=== PATIENT | male | born 1935 | race Hispanic/Latino ===

== ENCOUNTER 2017-05-21 21:57 | Inpatient (IN) | payer MEDICAID ==
[~2017-05-21] VITALS: Ht 167.6 cm; Wt 85.9 kg
[~2017-05-21 21:57] MED LIST: AMLODIPINE BESY10 MG GT; ASCORBIC ACID500 MG GT; ASPIR 8181 MG GT; CEFTRIAXON1 GM/50 ML IV; CRANBERRY 4001 EAC1 PO; DIABETA5 MG GT; DOCUSATE S50 MG/5 ML GT; FLEET ENEMA133 ML RECTAL; FUROSEMIDE40 MG ORAL; GLUCOTROL10 MG GT; HEPARIN SO5000 UNIT2 SUBQ; HUMALOG100 UNIT/3 SUBQ; HUMALOG100 UNIT/4 SUBQ; HYDRALAZINE HCL50 MG GT; INVANZ1 G1 IM; LANTUS5 UNITS SUBQ; LASIX40 MG GT; MILK OF MA2400 MG/10 GT; MILK OF MA2400 MG/10 ORAL; MULTI-DELYN237 ML GT; MULTIVITAMINS1 EA13 GT; MULTIVITAMINS1 EAC8 ORAL; NEURONTIN100 MG GT; NEURONTIN300 MG GT; NORVASC10 MG GT; PRAVACHOL20 MG GT; PRAVACHOL20 MG ORAL; PRAVASTATIN SOD40 M1 GT; TYLENOL325 MG; TYLENOL325 MG ORAL; TYLENOL650 MG/20. GT; VANCOMYCIN1 GM IV; VITAMIN C500 MG/11 GT
[2017-05-21 22:37] VITALS: BP 131/61
[2017-05-21 22:42] LABS: BASOPHILS % (AUTO) 0.7 % (0.0-2.0); EOSINOPHILS % (AUTO) 2.3 % (0.0-3.0); HEMATOCRIT 42.4 % (42.0-52.0); HEMOGLOBIN 13.5 G/DL (14.2-18.0); LYMPHOCYTES % (AUTO) 11.3 % (20.0-45.0); MEAN CORPUSCULAR VOLUME 88 FL (80-99); MONOCYTES % (AUTO) 7.7 % (1.0-10.0); PLATELET COUNT 232 K/UL (150-450); RED BLOOD COUNT 4.84 M/UL (4.70-6.10); RED CELL DISTRIBUTION WIDTH 13.1 % (11.6-14.8); WHITE BLOOD COUNT 12.9 K/UL (4.8-10.8)
[2017-05-21 22:46] LABS: APPEARANCE,URINE CLEAR; BILIRUBIN, URINE NEGATIVE (NEGATIVE); GLUCOSE, URINE (UA) NEGATIVE (NEGATIVE); KETONES,URINE NEGATIVE (NEGATIVE); LEUKOCYTE ESTERASE ,URINE 1+ (NEGATIVE); NITRITE,URINE NEGATIVE (NEGATIVE); PH,URINE 5 (4.5-8.0); PROTEIN,URINE 4+ (NEGATIVE); UROBILINOGEN,URINE NORMAL MG/DL (0.0-1.0)
[2017-05-21 22:47] LABS: COLOR,URINE YELLOW
[2017-05-21 23:02] LABS: ANION GAP 5 mmol/L (5-15); BLOOD UREA NITROGEN 43 mg/dL (7-18); CARBON DIOXIDE 33 MMOL/L (21-32); CHLORIDE 97 MMOL/L (98-107); CREATININE 1.7 MG/DL (0.55-1.30); SODIUM 135 MMOL/L (136-145)
[2017-05-21 23:13] LABS: ALANINE AMINOTRANSFERASE 17 U/L (12-78); ALBUMIN 3.2 G/DL (3.4-5.0); ALBUMIN/GLOBULIN RATIO 0.7 (1.0-2.7); ALKALINE PHOSPHATASE 129 U/L (46-116); ASPARTATE AMINO TRANSFERASE 21 U/L (15-37); BILIRUBIN,TOTAL 0.5 MG/DL (0.2-1.0)
[2017-05-21] MEDS ORDERED: FISH OIL CAP1000 MG GT (23:21)
[2017-05-21] MEDS ORDERED: CALCIUM + VITA1 EAC1 PO (23:21)
--- NOTE | 2017-05-21 23:21 | Emergency Room Report ---
History of Present Illness General Chief Complaint: Fever Source: Medical Record, EMS Present Illness HPI 81-year-old male, bedbound, nonverbal, G-tube, diabetes, hypertension, presenting with fever. And EMS states that he had a fever today, however no other history is able to be obtained. Patient nonverbal. Currently afebrile rectally Allergies: Coded Allergies: NO KNOWN ALLERGIES (Unverified Allergy, Unknown, 10/07/15) NO KNOWN DRUG ALLERGIES (Unverified Allergy, Unknown, 05/29/14) Patient History Past Medical History: see triage record Past Surgical History: none Pertinent Family History: none Reviewed Nursing Documentation: PMH: Agreed, PSxH: Agreed Nursing Documentation-PMH Hx Hypertension: Yes Hx COPD: No - Pneumonia, Sepsis Hx Diabetes: Yes Hx Cancer: No Hx Gastrointestinal Problems: Yes - G tube Hx Cerebrovascular Accident: Yes Hx Dementia: Yes Hx Head Trauma: Yes Hx Aphasia: Yes Hx Weakness: Yes Hx Neurologic Surgery: No Hx Brain Shunt: No Review of Systems All Other Systems: limited Physical Exam Vital Signs Date Time Temp Pulse Resp B/P (MAP) Pulse Ox O2 Delivery O2 Flow Rate FiO2 05/21/17 21:52 98.6 81 16 152/65 94 Nasal Cannula 2.0 Sp02 EP Interpretation: reviewed, normal General Appearance: mild distress, lethargic, Chronically Ill Head: normocephalic, atraumatic Eyes: bilateral eye normal inspection, bilateral eye PERRL, bilateral eye EOMI ENT: other - +gurgling sounds with +phlegm Neck: normal inspection, full range of motion, supple Respiratory: respiratory distress, other - clear lungs however copious secretions upper resp Cardiovascular #1: normal inspection, regular rate, rhythm, no edema, normal capillary refill Cardiovascular #2: 2+ radial (R), 2+ radial (L) Gastrointestinal: other - peg tube. non tender soft abd Genitourinary: no CVA tenderness Musculoskeletal: other - normal passive rom, +edema Neurologic: other - nonverbal, moaning to pain, not ff commands Psychiatric: other Skin: normal inspection, normal color, no rash, warm/dry, well hydrated, normal turgor Medical Decision Making Diagnostic Impression: Primary Impression: Fever Additional Impressions: Respiratory distress HCAP (healthcare-associated pneumonia) ER Course 81-year-old male, coming from [facility], had fever [facility] DDX: Influenza, UTI, PNA, bacteremia, will also consider intra-abdominal pathology such as colitis / diverticulitis / acalculous cholecystitis if no other course found but at this time abdomen soft, NT, ND. Plan: Obtain labs including cbc, bmp, blood culture, blood gas, lactate, ua, ucx CXR EKG ER course: Patient has been monitored during ED stay, HD stable Has copious amounts of secretions, suctioned Disposition: Patient is to be admitted to telemetry D/W hospitalist Please note that this Emergency Department Report was dictated using [employer] brakeman technology software, occasionally this can lead to erroneous entry secondary to interpretation by the dictation equipment. EKG Diagnostic Results EP Interpretation: Yes Rate: normal Rhythm: NSR ST Segments: No acute changes ASA given to patient: No Rhythm Strip EP Interpretation: Yes Rate: 78 Rhythm: NSR, no PVCs, no ectopy Chest X-ray CXR: Ordered: Yes 1 view Indication: Shortness of breath EP interpretation: Yes Interpretation: Cardiomegaly, possible right-sided infiltrate Impression: Cardiomegaly possible right-sided infiltrate versus pulmonary vascular congestion Electronically signed by Santosh Booker MD Laboratory Tests Test 05/21/17 22:12 White Blood Count 12.9 K/UL (4.8-10.8) H Red Blood Count 4.84 M/UL (4.70-6.10) Hemoglobin 13.5 G/DL (14.2-18.0) L Hematocrit 42.4 % (42.0-52.0) Mean Corpuscular Volume 88 FL (80-99) Mean Corpuscular Hemoglobin 27.8 PG (27.0-31.0) Mean Corpuscular Hemoglobin Concent 31.7 G/DL (32.0-36.0) L Red Cell Distribution Width 13.1 % (11.6-14.8) Platelet Count 232 K/UL (150-450) Mean Platelet Volume 6.6 FL (6.5-10.1) Neutrophils (%) (Auto) 78.0 % (45.0-75.0) H Lymphocytes (%) (Auto) 11.3 % (20.0-45.0) L Monocytes (%) (Auto) 7.7 % (1.0-10.0) Eosinophils (%) (Auto) 2.3 % (0.0-3.0) Basophils (%) (Auto) 0.7 % (0.0-2.0) Urine Color Yellow Urine Appearance Clear Urine pH 5 (4.5-8.0) Urine Specific [place] 1.010 (1.005-1.035) Urine Protein 4+ (NEGATIVE) H Urine Glucose (UA) Negative (NEGATIVE) Urine Ketones Negative (NEGATIVE) Urine Occult Blood 2+ (NEGATIVE) H Urine Nitrite Negative (NEGATIVE) Urine Bilirubin Negative (NEGATIVE) Urine Urobilinogen Normal MG/DL (0.0-1.0) Urine Leukocyte Esterase 1+ (NEGATIVE) H Urine RBC 5-10 /HPF (0 - 0) H Urine WBC 2-4 /HPF (0 - 0) Urine Squamous Epithelial Cells None /LPF (NONE/OCC) Urine Bacteria Few /HPF (NONE) Sodium Level 135 MMOL/L (136-145) L Potassium Level 4.0 MMOL/L (3.5-5.1) Chloride Level 97 MMOL/L (98-107) L Carbon Dioxide Level 33 MMOL/L (21-32) H Anion Gap 5 mmol/L (5-15) Blood Urea Nitrogen 43 mg/dL (7-18) H Creatinine 1.7 MG/DL (0.55-1.30) H Estimate Glomerular Filtration Rate mL/min (>60) Glucose Level 241 MG/DL (74-106) H Lactic Acid Level 1.20 mmol/L (0.66-2.22) Calcium Level 9.0 MG/DL (8.5-10.1) Total Bilirubin 0.5 MG/DL (0.2-1.0) Aspartate Amino Transferase (AST) 21 U/L (15-37) Alanine Aminotransferase (ALT) 17 U/L (12-78) Alkaline Phosphatase 129 U/L (46-116) H Troponin I 0.108 ng/mL (0.000-0.056) Pro-B-Type Natriuretic Peptide 1175 pg/mL (0-125) H Total Protein 7.7 G/DL (6.4-8.2) Albumin 3.2 G/DL (3.4-5.0) L Globulin 4.5 g/dL Albumin/Globulin Ratio 0.7 (1.0-2.7) L Microbiology Date/Time Source Procedure Growth Status 05/21/17 22:12 Nasal Nares Influenza Types A,B Antigen (JETHRO) - Final Complete Last Vital Signs Date Time Temp Pulse Resp B/P (MAP) Pulse Ox O2 Delivery O2 Flow Rate FiO2 05/21/17 22:37 98.6 81 16 131/61 96 Nasal Cannula 2.0 Disposition: ADMITTED INPATIENT Condition: Serious Referrals: SOHEILA BEY (PCP) Santosh Booker M.D. May 21, 2017 23:21
[2017-05-21] MEDS ORDERED: Piperacillin/Tazobactam 3.375 GM in NS 55 ML IV ONE (23:30)
[2017-05-21] MEDS ORDERED: Vancomycin 1.5gm/D5W 250ml 250 ML IVPB ONE (23:30)
[2017-05-21] MEDS ORDERED: Zosyn 3.375gm inj ONE (23:40)
[2017-05-21 23:52] VITALS: BP 144/56
[2017-05-22 02:00] VITALS: BP 124/71
[2017-05-22 04:00] VITALS: BP 127/62
[2017-05-22] MEDS ORDERED: Promethazine/Codeine 5ml UD ORAL PRN (05:45)
[2017-05-22] MEDS ORDERED: Nitroglycerin Subl 0.4mg tab SL PRN (05:45)
[2017-05-22] MEDS ORDERED: Miralax 17gm pkt ORAL PRN (05:45)
[2017-05-22] MEDS ORDERED: Albuterol/Ipratropium 3ml neb HHN PRN (05:45)
[2017-05-22] MEDS ORDERED: Mylanta II UD 30ml ORAL PRN (05:45)
[2017-05-22] MEDS: HydrALAZINE 50mg tab GT SCH ×3 (06:33→21:00)
[2017-05-22 08:00] VITALS: BP 134/68
[2017-05-22] MEDS: Cefepime HCl 1 GM in NS 55 ML IV SCH ×2 (08:57→20:52)
[2017-05-22] MEDS: Heparin 5000 units/ml inj SUBQ SCH ×2 (08:59→20:52)
[2017-05-22] MEDS ORDERED: Cefepime HCl 1 GM in D5W 55 ML IV SCH (09:00)
--- NOTE | 2017-05-22 09:23 | Diagnostic Imaging Report ---
Indication: Shortness of breath Technique: One view of the chest Comparison: 12/07/2014 Findings: There is atelectasis at the left lung base. The lung the level spaces are otherwise clear heart is enlarged. The aorta is tortuous and calcified. Findings are unchanged Impression: Left basilar atelectasis. No acute process otherwise
--- NOTE | 2017-05-22 11:11 | Consultation ---
History of Present Illness General Date patient seen: May 22, 2017 Chief Complaint: Fever Reason for Consultation: sepsis Present Illness HPI 81-year-old male, bedbound, nonverbal, G-tube, diabetes, hypertension, group home resident brought in by paramedics CC of fever. Pt c/o back pain and stomach pain and sound congested. Allergies: Coded Allergies: NO KNOWN ALLERGIES (Unverified Allergy, Unknown, 10/07/15) NO KNOWN DRUG ALLERGIES (Unverified Allergy, Unknown, 05/29/14) Medication History Scheduled Acetaminophen (Tylenol), 325 MG Q6H, (Reported) Amlodipine Besylate (Norvasc), 10 MG GT DAILY, (Reported) Amlodipine Besylate (Norvasc), 10 MG GT DAILY, (Reported) Aspirin* (Aspir 81*), 81 MG GT DAILY, (Reported) Calcium/Cranberry Fruit (Cranberry 400 Mg Caplet), 1 EACH PO EVERY 12 HOURS, ( Reported) Docusate Sodium (Docusate Sodium), 100 MG GT BID, (Reported) Fish Oil (Fish Oil 1,000 mg Capsule), 1,000 MG GT DAILY, (Reported) Furosemide* (Lasix*), 40 MG ORAL DAILY Furosemide* (Lasix*), 40 MG GT DAILY, (Reported) Gabapentin (Neurontin), 300 MG GT THREE TIMES A DAY, (Reported) Gabapentin* (Neurontin*), 300 MG GT THREE TIMES A DAY, (Reported) Glipizide* (Glucotrol*), 10 MG GT BID, (Reported) Glyburide* (Diabeta*), 5 MG GT BIAC, (Reported) Hydralazine Hcl* (Hydralazine Hcl*), 50 MG GT CLIFFORD, (Reported) Insulin Glargine (Lantus), 32 UNITS SUBQ BEDTIME, (Reported) Multivitamin With Minerals (Multivitamins With Minerals*), 1 TAB ORAL DAILY, ( Reported) Pravastatin Sod (Pravastatin Sod), 40 MG GT BEDTIME, (Reported) Vit C/Ascorbate Ca/Ascorb Sod (Vitamin C 500 Mg/15 Ml Liquid), 500 MG GT BID, ( Reported) Scheduled PRN Magnesium Hydroxide* (Milk Of Magnesia*), 30 ML ORAL HS PRN for Constipation, ( Reported) Na Phos,M-B/Na Phos,Di-Ba* (Fleet Enema*), 133 ML RECTAL DAILY PRN for CON, ( Reported) Miscellaneous Medications Calcium Carbonate/Vitamin D3 (Calcium + Vitamin D Tablet), Unknown Dose PO, ( Reported) Insulin Lispro (Humalog), 0 SUBQ, (Reported) Insulin Lispro (Humalog), 0 SUBQ, (Reported) Insulin Lispro (Humalog), Unknown Dose SUBQ, (Reported) Patient History Healthcare decision maker Dasha Mojica Resuscitation status Full Code Advanced Directive on File Past Medical/Surgical History Past Medical/Surgical History: (1) Dementia (2) History of CVA (cerebrovascular accident) (3) Feeding by G-tube (4) PEG (percutaneous endoscopic gastrostomy) adjustment/replacement/removal Review of Systems Constitutional: Reports: sweats, weakness Physical Exam General Appearance: WD/WN Lines, tubes and drains: peripheral, gtube HEENT: normocephalic Neck: non-tender, normal alignment, supple Respiratory/Chest: chest wall non-tender, rhonchi - left, stridor Breasts: no masses Cardiovascular/Chest: normal peripheral pulses Abdomen: normal bowel sounds, non tender Genitourinary/Rectal: normal genital exam Extremities: normal range of motion Last 24 Hour Vital Signs Date Time Temp Pulse Resp B/P (MAP) Pulse Ox O2 Delivery O2 Flow Rate FiO2 05/22/17 08:55 85 131/68 05/22/17 08:00 99.7 85 20 134/68 92 Nasal Cannula 2.0 05/22/17 08:00 85 05/22/17 07:04 Nasal Cannula 4.0 36 05/22/17 07:04 96 Nasal Cannula 4.0 36 05/22/17 06:33 127/62 05/22/17 05:51 87 05/22/17 04:00 97.8 84 24 127/62 95 Nasal Cannula 2.0 05/22/17 03:00 94 Nasal Cannula 4.0 36 05/22/17 03:00 Nasal Cannula 4.0 36 05/22/17 02:00 97.9 80 24 124/71 98 Nasal Cannula 2.0 05/22/17 01:34 98.6 71 16 144/56 96 Nasal Cannula 2.0 05/21/17 23:52 98.6 71 16 144/56 96 Nasal Cannula 2.0 05/21/17 22:37 98.6 81 16 131/61 96 Nasal Cannula 2.0 05/21/17 21:52 98.6 81 16 152/65 94 Nasal Cannula 2.0 Intake and Output 05/21/17 05/22/17 19:00 07:00 Intake Total 55 ml Output Total 900 ml Balance -845 ml Intake Oral 0 ml IV Total 55 ml Output Urine Total 900 ml # Voids 1 # Bowel Movements 2 Laboratory Tests Test 05/21/17 22:12 White Blood Count 12.9 K/UL (4.8-10.8) H Red Blood Count 4.84 M/UL (4.70-6.10) Hemoglobin 13.5 G/DL (14.2-18.0) L Hematocrit 42.4 % (42.0-52.0) Mean Corpuscular Volume 88 FL (80-99) Mean Corpuscular Hemoglobin 27.8 PG (27.0-31.0) Mean Corpuscular Hemoglobin Concent 31.7 G/DL (32.0-36.0) L Red Cell Distribution Width 13.1 % (11.6-14.8) Platelet Count 232 K/UL (150-450) Mean Platelet Volume 6.6 FL (6.5-10.1) Neutrophils (%) (Auto) 78.0 % (45.0-75.0) H Lymphocytes (%) (Auto) 11.3 % (20.0-45.0) L Monocytes (%) (Auto) 7.7 % (1.0-10.0) Eosinophils (%) (Auto) 2.3 % (0.0-3.0) Basophils (%) (Auto) 0.7 % (0.0-2.0) Urine Color Yellow Urine Appearance Clear Urine pH 5 (4.5-8.0) Urine Specific [place] 1.010 (1.005-1.035) Urine Protein 4+ (NEGATIVE) H Urine Glucose (UA) Negative (NEGATIVE) Urine Ketones Negative (NEGATIVE) Urine Occult Blood 2+ (NEGATIVE) H Urine Nitrite Negative (NEGATIVE) Urine Bilirubin Negative (NEGATIVE) Urine Urobilinogen Normal MG/DL (0.0-1.0) Urine Leukocyte Esterase 1+ (NEGATIVE) H Urine RBC 5-10 /HPF (0 - 0) H Urine WBC 2-4 /HPF (0 - 0) Urine Squamous Epithelial Cells None /LPF (NONE/OCC) Urine Bacteria Few /HPF (NONE) Sodium Level 135 MMOL/L (136-145) L Potassium Level 4.0 MMOL/L (3.5-5.1) Chloride Level 97 MMOL/L (98-107) L Carbon Dioxide Level 33 MMOL/L (21-32) H Anion Gap 5 mmol/L (5-15) Blood Urea Nitrogen 43 mg/dL (7-18) H Creatinine 1.7 MG/DL (0.55-1.30) H Estimat Glomerular Filtration Rate mL/min (>60) Glucose Level 241 MG/DL (74-106) H Lactic Acid Level 1.20 mmol/L (0.66-2.22) Calcium Level 9.0 MG/DL (8.5-10.1) Total Bilirubin 0.5 MG/DL (0.2-1.0) Aspartate Amino Transf (AST/SGOT) 21 U/L (15-37) Alanine Aminotransferase (ALT/SGPT) 17 U/L (12-78) Alkaline Phosphatase 129 U/L (46-116) H Troponin I 0.108 ng/mL (0.000-0.056) Pro-B-Type Natriuretic Peptide 1175 pg/mL (0-125) H Total Protein 7.7 G/DL (6.4-8.2) Albumin 3.2 G/DL (3.4-5.0) L Globulin 4.5 g/dL Albumin/Globulin Ratio 0.7 (1.0-2.7) L Microbiology Date/Time Source Procedure Growth Status 05/21/17 22:12 Nasal Nares Influenza Types A,B Antigen (JETHRO) - Final Complete Height (Feet): 5 Height (Inches): 6.00 Weight (Pounds): 181 Medications Current Medications Medications (Trade) Dose Ordered Sig/Dimas Route PRN Reason Start Time Stop Time Status Last Admin Dose Admin Acetaminophen (Tylenol) 650 mg Q4H PRN ORAL fever 05/22/17 05:45 06/21/17 05:44 Al Hydroxide/Mg Hydroxide (Mylanta II) 30 ml Q6H PRN ORAL dyspepsia 05/22/17 05:45 06/21/17 05:44 Albuterol/ Ipratropium (Albuterol/ Ipratropium) 3 ml Q4H PRN HHN Shortness of Breath 05/22/17 05:45 05/27/17 05:44 Amlodipine Besylate (Norvasc) 10 mg DAILY GT 05/22/17 09:00 06/21/17 08:59 05/22/17 08:55 Cefepime HCl 1 gm/ Sodium Chloride 55 ml @ 110 mls/hr EVERY 12 HOURS IV 05/22/17 09:00 05/29/17 08:59 05/22/17 08:57 Gabapentin (Neurontin) 300 mg THREE TIMES A DAY GT 05/22/17 09:00 06/21/17 08:59 05/22/17 08:55 Heparin Sodium (Porcine) (Heparin 5000 units/ml) 5,000 units EVERY 12 HOURS SUBQ 05/22/17 09:00 06/21/17 08:59 05/22/17 08:59 Hydralazine HCl (Apresoline) 50 mg EVERY 8 HOURS GT 05/22/17 06:00 06/21/17 05:59 05/22/17 06:33 Nitroglycerin (Ntg) 0.4 mg Q5M PRN SL Prn Chest Pain 05/22/17 05:45 06/21/17 05:44 Ondansetron HCl (Zofran) 4 mg Q6H PRN IVP Nausea & Vomiting 05/22/17 05:45 06/21/17 05:44 Polyethylene Glycol (Miralax) 17 gm DAILYPRN PRN ORAL Constipation 05/22/17 05:45 06/21/17 05:44 Promethazine HCl/ Codeine (Phenergan with Codeine) 5 ml Q4H PRN ORAL For Cough 05/22/17 05:45 06/21/17 05:44 Sodium Chloride 1,000 ml @ 75 mls/hr [id number] IV 05/22/17 11:15 06/21/17 11:14 UNV Temazepam (Restoril) 15 mg HSPRN PRN ORAL Insomnia 05/22/17 05:45 05/29/17 05:44 Assessment/Plan Problem List: (1) Sepsis ICD Codes: A41.9 - Sepsis, unspecified organism SNOMED: 84442039 (2) Bronchitis ICD Codes: J40 - Bronchitis, not specified as acute or chronic SNOMED: 05743296 (3) ATN (acute tubular necrosis) ICD Codes: N17.0 - Acute kidney failure with tubular necrosis SNOMED: 03514787 (4) Dementia ICD Codes: F03.90 - Unspecified dementia without behavioral disturbance SNOMED: 24592288 (5) Feeding by G-tube ICD Codes: Z93.1 - Gastrostomy status SNOMED: 711076017, 184033166 (6) History of CVA (cerebrovascular accident) ICD Codes: Z86.73 - Personal history of transient ischemic attack (TIA), and cerebral infarction without residual deficits SNOMED: 731594547 Assessment/Plan bailey culture IV abx check sputum respiratory treatment check electroltyes gtube feeding dvt prophylaxis. MANISHA REES May 22, 2017 11:11
[2017-05-22 12:00] VITALS: BP 137/71
--- NOTE | 2017-05-22 14:07 | Cardiac Electrophysiology PN ---
Subjective Subjective Dictated [id number] Objective Last 24 Hour Vital Signs Date Time Temp Pulse Resp B/P (MAP) Pulse Ox O2 Delivery O2 Flow Rate FiO2 05/22/17 12:00 99.0 85 22 137/71 96 Nasal Cannula 2.0 05/22/17 12:00 93 05/22/17 08:55 85 131/68 05/22/17 08:00 99.7 85 20 134/68 92 Nasal Cannula 2.0 05/22/17 08:00 85 05/22/17 07:04 Nasal Cannula 4.0 36 05/22/17 07:04 96 Nasal Cannula 4.0 36 05/22/17 06:33 127/62 05/22/17 05:51 87 05/22/17 04:00 97.8 84 24 127/62 95 Nasal Cannula 2.0 05/22/17 03:00 94 Nasal Cannula 4.0 36 05/22/17 03:00 Nasal Cannula 4.0 36 05/22/17 02:00 97.9 80 24 124/71 98 Nasal Cannula 2.0 05/22/17 01:34 98.6 71 16 144/56 96 Nasal Cannula 2.0 05/21/17 23:52 98.6 71 16 144/56 96 Nasal Cannula 2.0 05/21/17 22:37 98.6 81 16 131/61 96 Nasal Cannula 2.0 05/21/17 21:52 98.6 81 16 152/65 94 Nasal Cannula 2.0 Intake and Output 05/21/17 05/22/17 19:00 07:00 Intake Total 55 ml Output Total 900 ml Balance -845 ml Intake Oral 0 ml IV Total 55 ml Output Urine Total 900 ml # Voids 1 # Bowel Movements 2 Laboratory Tests Test 05/21/17 22:12 White Blood Count 12.9 K/UL (4.8-10.8) H Red Blood Count 4.84 M/UL (4.70-6.10) Hemoglobin 13.5 G/DL (14.2-18.0) L Hematocrit 42.4 % (42.0-52.0) Mean Corpuscular Volume 88 FL (80-99) Mean Corpuscular Hemoglobin 27.8 PG (27.0-31.0) Mean Corpuscular Hemoglobin Concent 31.7 G/DL (32.0-36.0) L Red Cell Distribution Width 13.1 % (11.6-14.8) Platelet Count 232 K/UL (150-450) Mean Platelet Volume 6.6 FL (6.5-10.1) Neutrophils (%) (Auto) 78.0 % (45.0-75.0) H Lymphocytes (%) (Auto) 11.3 % (20.0-45.0) L Monocytes (%) (Auto) 7.7 % (1.0-10.0) Eosinophils (%) (Auto) 2.3 % (0.0-3.0) Basophils (%) (Auto) 0.7 % (0.0-2.0) Urine Color Yellow Urine Appearance Clear Urine pH 5 (4.5-8.0) Urine Specific [place] 1.010 (1.005-1.035) Urine Protein 4+ (NEGATIVE) H Urine Glucose (UA) Negative (NEGATIVE) Urine Ketones Negative (NEGATIVE) Urine Occult Blood 2+ (NEGATIVE) H Urine Nitrite Negative (NEGATIVE) Urine Bilirubin Negative (NEGATIVE) Urine Urobilinogen Normal MG/DL (0.0-1.0) Urine Leukocyte Esterase 1+ (NEGATIVE) H Urine RBC 5-10 /HPF (0 - 0) H Urine WBC 2-4 /HPF (0 - 0) Urine Squamous Epithelial Cells None /LPF (NONE/OCC) Urine Bacteria Few /HPF (NONE) Sodium Level 135 MMOL/L (136-145) L Potassium Level 4.0 MMOL/L (3.5-5.1) Chloride Level 97 MMOL/L (98-107) L Carbon Dioxide Level 33 MMOL/L (21-32) H Anion Gap 5 mmol/L (5-15) Blood Urea Nitrogen 43 mg/dL (7-18) H Creatinine 1.7 MG/DL (0.55-1.30) H Estimat Glomerular Filtration Rate mL/min (>60) Glucose Level 241 MG/DL (74-106) H Lactic Acid Level 1.20 mmol/L (0.66-2.22) Calcium Level 9.0 MG/DL (8.5-10.1) Total Bilirubin 0.5 MG/DL (0.2-1.0) Aspartate Amino Transf (AST/SGOT) 21 U/L (15-37) Alanine Aminotransferase (ALT/SGPT) 17 U/L (12-78) Alkaline Phosphatase 129 U/L (46-116) H Troponin I 0.108 ng/mL (0.000-0.056) Pro-B-Type Natriuretic Peptide 1175 pg/mL (0-125) H Total Protein 7.7 G/DL (6.4-8.2) Albumin 3.2 G/DL (3.4-5.0) L Globulin 4.5 g/dL Albumin/Globulin Ratio 0.7 (1.0-2.7) L Microbiology Date/Time Source Procedure Growth Status 05/21/17 22:12 Nasal Nares Influenza Types A,B Antigen (JETHRO) - Final Complete ANIRUDHOCTAVIA May 22, 2017 14:07
[2017-05-22 16:00] VITALS: BP 140/59
[2017-05-22] MEDS: NovoLOG Insulin Flexpen SUBQ SCH ×2 (16:30→20:53)
--- NOTE | 2017-05-22 16:45 | History and Physical Report ---
DATE OF ADMISSION: 05/21/2017 ATTENDING PHYSICIAN: Remberto Joe D.O. CONSULTANTS: 1. Wang Guzman M.D. 2. Dr. Bauer. 3. Gold Birmingham M.D. 4. Herbert Sanford M.D. CHIEF COMPLAINT: Confusion, fever, coughing, pneumonia, sepsis, and elevated troponin. BRIEF HISTORY: This is an 88-year-old male from [facility], presented with the above-mentioned diagnoses. The patient with fever, diagnosed with pneumonia and sepsis, and admitted to [facility] for further care. Currently calm, O2 NC, confused, sleeping in bed, not talking much. PAST MEDICAL HISTORY: Encephalopathy, hypertension, and CVA. PAST SURGICAL HISTORY: G-tube. MEDICATIONS: NovoLog, Norvasc, heparin, cefepime, Tylenol, hydralazine, nitroglycerin, and promethazine with codeine. ALLERGIES: Denies. SOCIAL HISTORY: No smoking. No alcohol. No intravenous drug abuse. FAMILY HISTORY: Noncontributory. REVIEW OF SYSTEMS: Unavailable. PHYSICAL EXAMINATION: GENERAL: Confused in bed, O2 NC, not talking, not responding to questions. VITAL SIGNS: Temperature is 99, pulse 85, respirations 22, and blood pressure 137/71. CARDIOVASCULAR: No murmurs. LUNGS: Poor air exchange. ABDOMEN: Bowel sounds distant. EXTREMITIES: No cyanosis, clubbing, or edema. NEURO: The patient moves all extremities. Slightly weak. LABORATORY DATA: Labs at this time show white count 12.9 and hemoglobin 13.5, otherwise, CBC is normal. BMP shows sodium 135, chloride 97, CO2 33, and BUN and creatinine are 43 and 1.7. Troponin 0.108. BNP is 1175. Urinalysis shows 1+ leukocyte esterase. ASSESSMENT: 1. Fever. 2. Pneumonia. 3. Urinary tract infection. 4. Sepsis. 5. Elevated troponin. 6. Renal insufficiency. 7. Hypertension. 8. Encephalopathy. 9. Cerebrovascular accident. PLAN: 1. Continue premeds. 2. OT, PT, and dietary evaluation. 3. CBC and BMP in morning. 4. O2 and pulmonary treatment as needed. 5. Antibiotics as ordered. 6. Blood pressure control. 7. Resume home medications. 8. Dr. Guzman, Dr. Bauer, Dr. Birmingham, and Dr. Sanford to consult. 9. We will continue to follow this patient medically. Remberto Joe D.O. DR: CHANDLER JOB#: [id number] CC:
--- NOTE | 2017-05-22 17:10 | Cardiology Report ---
APPROVED REPORT EXAM: Two-dimensional and M-mode echocardiogram with Doppler and color Doppler. INDICATION Congestive Heart Failure M-Mode DIMENSIONS IVSd1.2 (0.7-1.1cm)Left Atrium (MM)4.0 (1.6-4.0cm) LVDd5.1 (3.5-5.6cm)Aortic Root3.0 (2.0-3.7cm) PWd1.3 (0.7-1.1cm)Aortic Cusp Exc.1.5 (1.5-2.0cm) LVDs2.2 (2.5-4.0cm) PWs2.4 cm Normal left ventricular chamber size, systolic function and wall motion. Left ventricular ejection fraction estimated to be 55-60 %. Mild left ventricular hypertrophy. Anterior Echo-free space, may be due to pericardial fat or effusion. All other cardiac chamber sizes are within normal limits. Focal aortic valve sclerosis with adequate cusp excursion. Thickened mitral valve leaflets with normal excursion. Mild mitral annulus and aortic root calcification. Pulmonic valve not well visualized. Normal tricuspid valve structure. Subcostal views not obtainable due to GI tube. A color flow and spectral Doppler study was performed and revealed: No aortic insufficiency. No mitral regurgitation. Left ventricular diastolic function could not be determined due to arrhythmia. Trace tricuspid regurgitation. Tricuspid systolic velocities suggests peak right ventricular systolic pressure of 13 mmHg. No pulmonic regurgitation present.
--- NOTE | 2017-05-22 18:53 | Cardiology Report ---
APPROVED REPORT EKG Measurement Heart [id number] Sinus rhythm with 1st degree AV block Left axis deviation Low voltage QRS Cannot rule out Anterior infarct, age undetermined Abnormal ECG
[2017-05-22 20:00] VITALS: BP 133/64
--- NOTE | 2017-05-22 20:02 | Nephrology Progress Note ---
Assessment/Plan Problem List: (1) Leucocytosis (2) CHF (congestive heart failure) (3) ARF (acute renal failure) (4) Dehydration (5) Diabetes (6) HTN (hypertension) (7) Elevated troponin level (8) HLD (hyperlipidemia) (9) Hyponatremia (10) Dementia (11) History of CVA (cerebrovascular accident) Plan Consult dictated # [id number] Subjective Constitutional: Denies: no symptoms, chills, diaphoresis, fever, malaise, weakness, other HEENT: Denies: no symptoms, eye pain, blurred vision, tearing, double vision, ear pain, ear discharge, nose pain, nose congestion, throat pain, throat swelling, mouth pain, mouth swelling, other Genitourinary: Denies: no symptoms, burning, discharge, frequency, flank pain, hematuria, incontinence, pain, urgency, other Neurologic/Psychiatric: Reports: weakness Subjective In bed, in no apparent distress. Objective Objective Last 24 Hour Vital Signs Date Time Temp Pulse Resp B/P (MAP) Pulse Ox O2 Delivery O2 Flow Rate FiO2 05/22/17 16:00 99.2 94 19 140/59 94 Nasal Cannula 2.0 05/22/17 16:00 90 05/22/17 14:33 137/71 05/22/17 12:00 99.0 85 22 137/71 96 Nasal Cannula 2.0 05/22/17 12:00 93 05/22/17 08:55 85 131/68 05/22/17 08:00 99.7 85 20 134/68 92 Nasal Cannula 2.0 05/22/17 08:00 85 05/22/17 07:04 Nasal Cannula 4.0 36 05/22/17 07:04 96 Nasal Cannula 4.0 36 05/22/17 06:33 127/62 05/22/17 05:51 87 05/22/17 04:00 97.8 84 24 127/62 95 Nasal Cannula 2.0 05/22/17 03:00 94 Nasal Cannula 4.0 36 05/22/17 03:00 Nasal Cannula 4.0 36 05/22/17 02:00 97.9 80 24 124/71 98 Nasal Cannula 2.0 05/22/17 01:34 98.6 71 16 144/56 96 Nasal Cannula 2.0 05/21/17 23:52 98.6 71 16 144/56 96 Nasal Cannula 2.0 05/21/17 22:37 98.6 81 16 131/61 96 Nasal Cannula 2.0 05/21/17 21:52 98.6 81 16 152/65 94 Nasal Cannula 2.0 Intake and Output 05/21/17 05/22/17 19:00 07:00 Intake Total 55 ml Output Total 900 ml Balance -845 ml Intake Oral 0 ml IV Total 55 ml Output Urine Total 900 ml # Voids 1 # Bowel Movements 2 Laboratory Tests 05/21/17 22:12: White Blood Count 12.9H, Red Blood Count 4.84, Hemoglobin 13.5L, Hematocrit 42.4 , Mean Corpuscular Volume 88, Mean Corpuscular Hemoglobin 27.8, Mean Corpuscular Hemoglobin Concent 31.7L, Red Cell Distribution Width 13.1, Platelet Count 232, Mean Platelet Volume 6.6, Neutrophils (%) (Auto) 78.0H, Lymphocytes (%) (Auto) 11.3L, Monocytes (%) (Auto) 7.7, Eosinophils (%) (Auto) 2.3, Basophils (%) (Auto) 0.7, Urine Color Yellow, Urine Appearance Clear, Urine pH 5, Urine Specific [place] 1.010, Urine Protein 4+H, Urine Glucose (UA) Negative, Urine Ketones Negative, Urine Occult Blood 2+H, Urine Nitrite Negative , Urine Bilirubin Negative, Urine Urobilinogen Normal, Urine Leukocyte Esterase 1+H, Urine RBC 5-10H, Urine WBC 2-4, Urine Squamous Epithelial Cells None, Urine Bacteria Few, Sodium Level 135L, Potassium Level 4.0, Chloride Level 97L, Carbon Dioxide Level 33H, Anion Gap 5, Blood Urea Nitrogen 43H, Creatinine 1.7H , Estimat Glomerular Filtration Rate , Glucose Level 241H, Lactic Acid Level 1.20, Calcium Level 9.0, Total Bilirubin 0.5, Aspartate Amino Transf (AST/SGOT) 21, Alanine Aminotransferase (ALT/SGPT) 17, Alkaline Phosphatase 129H, Troponin I 0.108H, Pro-B-Type Natriuretic Peptide 1175H, Total Protein 7.7, Albumin 3.2L , Globulin 4.5, Albumin/Globulin Ratio 0.7L Height (Feet): 5 Height (Inches): 6.00 Weight (Pounds): 181 General Appearance: no apparent distress, confused EENT: normal ENT inspection Neck: non-tender Cardiovascular: normal rate Respiratory/Chest: decreased breath sounds Abdomen: soft, other Genitourinary/Rectal: other - kong Extremities: trace edema Neurologic: motor weakness, disoriented Lara Solorzano N.P. May 22, 2017 20:02
--- NOTE | 2017-05-22 23:45 | Consultation ---
DATE OF CONSULTATION: 05/22/2017 CARDIOLOGY CONSULTATION CONSULTING PHYSICIAN: Gold Birmingham M.D. REFERRING PHYSICIAN: Remberto Joe D.O. REASON FOR CONSULTATION: Elevated troponin. HISTORY OF PRESENT ILLNESS: The patient is a 81-year-old gentleman, who is nonverbal and bedbound with history of G-tube, hypertension, and diabetes, who was brought from half-way for fever. The patient was not able to provide any information. He is nonverbal. The blood pressure in the emergency room was 152/65 with a pulse of 81, respirations 16, and saturation 94%. His troponin, however, was elevated and the patient was admitted to [facility]. Cardiology consultation is obtained for further evaluation and management. PAST MEDICAL HISTORY: 1. Hypertension. 2. Diabetes. 3. Dysphagia, status post PEG placement. 4. Dementia. 5. Aphasia. FAMILY HISTORY: Noncontributory. SOCIAL HISTORY: He lives in half[place]way. Does not smoke or drink alcohol. REVIEW OF SYSTEMS: Cannot be obtained due to the patient's mental status. PHYSICAL EXAMINATION: VITAL SIGNS: Blood pressure is 132/71, pulse 85, respirations 22, and temperature is 99.7. HEAD AND NECK: Shows no JVD. LUNGS: Clear. CARDIOVASCULAR: Shows regular S1 and S2 with no gallop. ABDOMEN: Status post G-tube. EXTREMITIES: No pitting edema. LABORATORY AND DIAGNOSTIC DATA: His EKG showed sinus rhythm with first-degree AV block and left axis deviation. LABORATORY DATA: Labs show white count of 12.9, hemoglobin 13.5, and hematocrit 42.4. Sodium 135, potassium 4.0, BUN of 42, creatinine 1.7, and glucose of 241. Troponin 0.108. BNP is 1175. ASSESSMENT AND PLAN: 1. Elevated troponin. This is likely due to the patient's renal failure. The creatinine is 1.7. We will completely rule out myocardial infarction protocol. EKG does not show any acute ischemic changes. We will get an echocardiogram to rule for ejection fraction and wall motion abnormality. 2. Hypertension. Continue amlodipine 10 mg daily. 3. Elevated BNP, likely congestive heart failure. Again echocardiogram is pending. 4. Fever and sepsis. On IV antibiotics. 5. Dementia. 6. Dysphagia, status post percutaneous endoscopic gastrostomy tube placement. Thank you very much, Dr. Joe, for allowing me to participate in the care of this patient. Please do not hesitate to contact me for any questions regarding my evaluation. Gold Birmingham M.D. DR: LEÓN JOB#: [id number] CC:
[2017-05-23] VITALS: BP 136/84
[2017-05-23] MEDS ORDERED: Vancomycin 1 GM in D5W 275 ML IVPB SCH (00:30)
[2017-05-23 04:00] VITALS: BP 150/77
[2017-05-23] MEDS: HydrALAZINE 50mg tab GT SCH ×3 (05:50→22:18)
[2017-05-23] MEDS: NovoLOG Insulin Flexpen SUBQ SCH ×4 (05:52→22:18)
[2017-05-23 06:04] LABS: BASOPHILS % (AUTO) 0.7 % (0.0-2.0); HEMATOCRIT 39.9 % (42.0-52.0); HEMOGLOBIN 13.5 G/DL (14.2-18.0); LYMPHOCYTES % (AUTO) 12.7 % (20.0-45.0); MEAN CORPUSCULAR VOLUME 89 FL (80-99); MONOCYTES % (AUTO) 6.3 % (1.0-10.0); NEUTROPHILS % (AUTO) 78.3 % (45.0-75.0); PLATELET COUNT 222 K/UL (150-450); RED BLOOD COUNT 4.49 M/UL (4.70-6.10); RED CELL DISTRIBUTION WIDTH 13.7 % (11.6-14.8); WHITE BLOOD COUNT 9.8 K/UL (4.8-10.8)
[2017-05-23 06:25] LABS: ALBUMIN 2.9 G/DL (3.4-5.0); ANION GAP 5 mmol/L (5-15); BLOOD UREA NITROGEN 33 mg/dL (7-18); CALCIUM 9.4 MG/DL (8.5-10.1); CARBON DIOXIDE 34 MMOL/L (21-32); CHLORIDE 102 MMOL/L (98-107); CREATININE 1.6 MG/DL (0.55-1.30); PHOSPHORUS 3.5 MG/DL (2.5-4.9); POTASSIUM 3.8 MMOL/L (3.5-5.1); SODIUM 140 MMOL/L (136-145)
[2017-05-23 06:28] LABS: ANION GAP 6 mmol/L (5-15); BLOOD UREA NITROGEN 32 mg/dL (7-18); CARBON DIOXIDE 33 MMOL/L (21-32); CHLORIDE 102 MMOL/L (98-107); CREATININE 1.6 MG/DL (0.55-1.30); POTASSIUM 3.8 MMOL/L (3.5-5.1); SODIUM 141 MMOL/L (136-145)
[2017-05-23 08:00] VITALS: BP 134/72
[2017-05-23] MEDS: Heparin 5000 units/ml inj SUBQ SCH ×2 (08:23→22:19)
[2017-05-23] MEDS: Cefepime HCl 1 GM in NS 55 ML IV SCH (08:24)
--- NOTE | 2017-05-23 08:37 | Infectious Diseases Prog Note ---
Assessment/Plan Assessment/Plan A; Sepsis improving Bronchitis, atelectasis Acute renal failure DM Elevated troponin Dementia P; Continue Cefepime will f/u cultures Subjective ROS Limited/Unobtainable: Yes Musculoskeletal: Reports: no symptoms Allergies: Coded Allergies: NO KNOWN ALLERGIES (Unverified Allergy, Unknown, 10/07/15) NO KNOWN DRUG ALLERGIES (Unverified Allergy, Unknown, 05/29/14) Objective Vital Signs Last 24 Hour Vital Signs Date Time Temp Pulse Resp B/P (MAP) Pulse Ox O2 Delivery O2 Flow Rate FiO2 05/23/17 08:24 97 134/72 05/23/17 05:50 150/77 05/23/17 04:00 98.4 95 20 150/77 96 Nasal Cannula 2.0 05/23/17 04:00 97 05/23/17 00:00 98.0 108 24 136/84 99 Nasal Cannula 2.0 05/23/17 00:00 94 05/22/17 23:42 96 18 99 Nasal Cannula 3.0 36 05/22/17 23:42 93 22 96 Nasal Cannula 3.0 36 05/22/17 21:00 133/64 05/22/17 20:30 Nasal Cannula 4.0 36 05/22/17 20:30 95 Nasal Cannula 4.0 36 05/22/17 20:00 89 05/22/17 20:00 99.0 90 24 133/64 95 Nasal Cannula 2.0 05/22/17 16:00 99.2 94 19 140/59 94 Nasal Cannula 2.0 05/22/17 16:00 90 05/22/17 14:33 137/71 05/22/17 12:00 99.0 85 22 137/71 96 Nasal Cannula 2.0 05/22/17 12:00 93 05/22/17 08:55 85 131/68 Height (Feet): 5 Height (Inches): 6.00 Weight (Pounds): 181 General Appearance: no acute distress HEENT: mucous membranes moist Respiratory/Chest: lungs clear Cardiovascular: normal rate Abdomen: soft, non tender, other - GT feeding Extremities: no edema Neurologic/Psychiatric: alert, responsive, disoriented, other - obeys simple command Microbiology Date/Time Source Procedure Growth Status 05/21/17 22:02 Blood Blood Culture - Preliminary NO GROWTH AFTER 24 HOURS Resulted 05/21/17 22:02 Blood Blood Culture - Preliminary NO GROWTH AFTER 24 HOURS Resulted 05/21/17 22:12 Nasal Nares Influenza Types A,B Antigen (JETHRO) - Final Complete Laboratory Tests Test 05/23/17 05:40 White Blood Count 9.8 K/UL (4.8-10.8) Red Blood Count 4.49 M/UL (4.70-6.10) L Hemoglobin 13.5 G/DL (14.2-18.0) L Hematocrit 39.9 % (42.0-52.0) L Mean Corpuscular Volume 89 FL (80-99) Mean Corpuscular Hemoglobin 30.0 PG (27.0-31.0) Mean Corpuscular Hemoglobin Concent 33.8 G/DL (32.0-36.0) Red Cell Distribution Width 13.7 % (11.6-14.8) Platelet Count 222 K/UL (150-450) Mean Platelet Volume 6.9 FL (6.5-10.1) Neutrophils (%) (Auto) 78.3 % (45.0-75.0) H Lymphocytes (%) (Auto) 12.7 % (20.0-45.0) L Monocytes (%) (Auto) 6.3 % (1.0-10.0) Eosinophils (%) (Auto) 2.0 % (0.0-3.0) Basophils (%) (Auto) 0.7 % (0.0-2.0) Sodium Level 141 MMOL/L (136-145) Potassium Level 3.8 MMOL/L (3.5-5.1) Chloride Level 102 MMOL/L (98-107) Carbon Dioxide Level 33 MMOL/L (21-32) H Anion Gap 6 mmol/L (5-15) Blood Urea Nitrogen 32 mg/dL (7-18) H Creatinine 1.6 MG/DL (0.55-1.30) H Estimat Glomerular Filtration Rate mL/min (>60) Glucose Level 113 MG/DL (74-106) H Calcium Level 9.0 MG/DL (8.5-10.1) Phosphorus Level 3.5 MG/DL (2.5-4.9) Troponin I 0.059 ng/mL (0.000-0.056) Pro-B-Type Natriuretic Peptide 776 pg/mL (0-125) H Albumin 2.9 G/DL (3.4-5.0) L Free Thyroxine 1.22 NG/DL (0.76-1.46) Current Medications Medications (Trade) Dose Ordered Sig/Dimas Route PRN Reason Start Time Stop Time Status Last Admin Dose Admin Acetaminophen (Tylenol) 650 mg Q4H PRN ORAL fever 05/22/17 05:45 06/21/17 05:44 Al Hydroxide/Mg Hydroxide (Mylanta II) 30 ml Q6H PRN ORAL dyspepsia 05/22/17 05:45 06/21/17 05:44 Albuterol/ Ipratropium (Albuterol/ Ipratropium) 3 ml Q4H PRN HHN Shortness of Breath 05/22/17 05:45 05/27/17 05:44 05/22/17 23:41 Amlodipine Besylate (Norvasc) 10 mg DAILY GT 05/22/17 09:00 06/21/17 08:59 05/23/17 08:24 Cefepime HCl 1 gm/ Sodium Chloride 55 ml @ 110 mls/hr EVERY 12 HOURS IV 05/22/17 09:00 05/29/17 08:59 05/23/17 08:24 Gabapentin (Neurontin) 300 mg THREE TIMES A DAY GT 05/22/17 09:00 06/21/17 08:59 05/23/17 08:24 Heparin Sodium (Porcine) (Heparin 5000 units/ml) 5,000 units EVERY 12 HOURS SUBQ 05/22/17 09:00 06/21/17 08:59 05/23/17 08:23 Hydralazine HCl (Apresoline) 50 mg EVERY 8 HOURS GT 05/22/17 06:00 06/21/17 05:59 05/23/17 05:50 Insulin Aspart (NovoLOG) BEFORE MEALS AND HS SUBQ 05/22/17 16:30 06/21/17 16:29 05/23/17 05:52 Nitroglycerin (Ntg) 0.4 mg Q5M PRN SL Prn Chest Pain 05/22/17 05:45 06/21/17 05:44 Ondansetron HCl (Zofran) 4 mg Q6H PRN IVP Nausea & Vomiting 05/22/17 05:45 06/21/17 05:44 Polyethylene Glycol (Miralax) 17 gm DAILYPRN PRN ORAL Constipation 05/22/17 05:45 06/21/17 05:44 Promethazine HCl/ Codeine (Phenergan with Codeine) 5 ml Q4H PRN ORAL For Cough 05/22/17 05:45 06/21/17 05:44 Sodium Chloride 1,000 ml @ 75 mls/hr [id number] IV 05/22/17 12:30 06/21/17 12:29 05/23/17 01:46 Temazepam (Restoril) 15 mg HSPRN PRN ORAL Insomnia 05/22/17 05:45 05/29/17 05:44 MALCOLM LIN May 23, 2017 08:37
--- NOTE | 2017-05-23 10:50 | Cardiac Electrophysiology PN ---
Assessment/Plan Assessment/Plan 1. Elevated troponins. Levels flat and low.No chest pain. This is likely due to the patient's renal failure. The creatinine is 1.7. EKG does not show any acute ischemic changes. ECho final pending 2. Hypertension. Continue amlodipine 10 mg daily and hydralazine 50 q 8 hr. 3. Elevated BNP, likely congestive heart failure. Again echocardiogram is pending. 4. Fever and sepsis. On IV antibiotics. 5. Dementia. 6. Dysphagia, status post percutaneous endoscopic gastrostomy tube placement. DW Daughter at bedside Subjective Subjective Feeling better. Daughter at bedside.On abx. No arrhythmias on tele. EF 55%. Objective Last 24 Hour Vital Signs Date Time Temp Pulse Resp B/P (MAP) Pulse Ox O2 Delivery O2 Flow Rate FiO2 05/23/17 08:24 97 134/72 05/23/17 08:00 96 05/23/17 08:00 98.8 97 18 134/72 97 Nasal Cannula 2.0 05/23/17 07:15 Nasal Cannula 4.0 36 05/23/17 07:15 96 Nasal Cannula 4.0 36 05/23/17 05:50 150/77 05/23/17 04:00 98.4 95 20 150/77 96 Nasal Cannula 2.0 05/23/17 04:00 97 05/23/17 00:00 98.0 108 24 136/84 99 Nasal Cannula 2.0 05/23/17 00:00 94 05/22/17 23:42 96 18 99 Nasal Cannula 3.0 36 05/22/17 23:42 93 22 96 Nasal Cannula 3.0 36 05/22/17 21:00 133/64 05/22/17 20:30 Nasal Cannula 4.0 36 05/22/17 20:30 95 Nasal Cannula 4.0 36 05/22/17 20:00 89 05/22/17 20:00 99.0 90 24 133/64 95 Nasal Cannula 2.0 05/22/17 16:00 99.2 94 19 140/59 94 Nasal Cannula 2.0 05/22/17 16:00 90 05/22/17 14:33 137/71 05/22/17 12:00 99.0 85 22 137/71 96 Nasal Cannula 2.0 05/22/17 12:00 93 Intake and Output 05/22/17 05/23/17 19:00 07:00 Intake Total 855 ml 1448.75 ml Output Total 3 ml 500 ml Balance 852 ml 948.75 ml Free Water 100 ml IV Total 505 ml 1028.75 ml Tube Feeding 220 ml 360 ml Other 30 ml 60 ml Output Urine Total 3 ml 500 ml # Voids 1 # Bowel Movements 4 1 Laboratory Tests Test 05/23/17 05:40 White Blood Count 9.8 K/UL (4.8-10.8) Red Blood Count 4.49 M/UL (4.70-6.10) L Hemoglobin 13.5 G/DL (14.2-18.0) L Hematocrit 39.9 % (42.0-52.0) L Mean Corpuscular Volume 89 FL (80-99) Mean Corpuscular Hemoglobin 30.0 PG (27.0-31.0) Mean Corpuscular Hemoglobin Concent 33.8 G/DL (32.0-36.0) Red Cell Distribution Width 13.7 % (11.6-14.8) Platelet Count 222 K/UL (150-450) Mean Platelet Volume 6.9 FL (6.5-10.1) Neutrophils (%) (Auto) 78.3 % (45.0-75.0) H Lymphocytes (%) (Auto) 12.7 % (20.0-45.0) L Monocytes (%) (Auto) 6.3 % (1.0-10.0) Eosinophils (%) (Auto) 2.0 % (0.0-3.0) Basophils (%) (Auto) 0.7 % (0.0-2.0) Sodium Level 141 MMOL/L (136-145) Potassium Level 3.8 MMOL/L (3.5-5.1) Chloride Level 102 MMOL/L (98-107) Carbon Dioxide Level 33 MMOL/L (21-32) H Anion Gap 6 mmol/L (5-15) Blood Urea Nitrogen 32 mg/dL (7-18) H Creatinine 1.6 MG/DL (0.55-1.30) H Estimat Glomerular Filtration Rate mL/min (>60) Glucose Level 113 MG/DL (74-106) H Calcium Level 9.0 MG/DL (8.5-10.1) Phosphorus Level 3.5 MG/DL (2.5-4.9) Troponin I 0.059 ng/mL (0.000-0.056) Pro-B-Type Natriuretic Peptide 776 pg/mL (0-125) H Albumin 2.9 G/DL (3.4-5.0) L Free Thyroxine 1.22 NG/DL (0.76-1.46) Microbiology Date/Time Source Procedure Growth Status 05/21/17 22:02 Blood Blood Culture - Preliminary NO GROWTH AFTER 24 HOURS Resulted 05/21/17 22:02 Blood Blood Culture - Preliminary NO GROWTH AFTER 24 HOURS Resulted 05/21/17 22:12 Nasal Nares Influenza Types A,B Antigen (JETHRO) - Final Complete Objective HEAD AND NECK: Shows no JVD. LUNGS: Clear. CARDIOVASCULAR: Shows regular S1 and S2 with no gallop. ABDOMEN: Status post G-tube. EXTREMITIES: No pitting edema. OCTAVIA OLEARY May 23, 2017 10:50
--- NOTE | 2017-05-23 11:59 | Pulmonology Progress Note ---
Assessment/Plan Problems: (1) Sepsis (2) Bronchitis (3) ATN (acute tubular necrosis) (4) Dementia (5) Feeding by G-tube (6) History of CVA (cerebrovascular accident) Assessment/Plan iv abx check cultures, so far everything is negative check electrolytes tolerating feeding dvt prophylaxis titrate fio2 to pulse ox of 925 troponin unchanged. transfer to med/surg if ok with Content Director. all meds and notes reviewed. Subjective ROS Limited/Unobtainable: No Constitutional: Reports: no symptoms HEENT: Repors: no symptoms Allergies: Coded Allergies: NO KNOWN ALLERGIES (Unverified Allergy, Unknown, 10/07/15) NO KNOWN DRUG ALLERGIES (Unverified Allergy, Unknown, 05/29/14) Objective Last 24 Hour Vital Signs Date Time Temp Pulse Resp B/P (MAP) Pulse Ox O2 Delivery O2 Flow Rate FiO2 05/23/17 08:24 97 134/72 05/23/17 08:00 96 05/23/17 08:00 98.8 97 18 134/72 97 Nasal Cannula 2.0 05/23/17 07:15 Nasal Cannula 4.0 36 05/23/17 07:15 96 Nasal Cannula 4.0 36 05/23/17 05:50 150/77 05/23/17 04:00 98.4 95 20 150/77 96 Nasal Cannula 2.0 05/23/17 04:00 97 05/23/17 00:00 98.0 108 24 136/84 99 Nasal Cannula 2.0 05/23/17 00:00 94 05/22/17 23:42 96 18 99 Nasal Cannula 3.0 36 05/22/17 23:42 93 22 96 Nasal Cannula 3.0 36 05/22/17 21:00 133/64 05/22/17 20:30 Nasal Cannula 4.0 36 05/22/17 20:30 95 Nasal Cannula 4.0 36 05/22/17 20:00 89 05/22/17 20:00 99.0 90 24 133/64 95 Nasal Cannula 2.0 05/22/17 16:00 99.2 94 19 140/59 94 Nasal Cannula 2.0 05/22/17 16:00 90 05/22/17 14:33 137/71 05/22/17 12:00 99.0 85 22 137/71 96 Nasal Cannula 2.0 05/22/17 12:00 93 Intake and Output 05/22/17 05/23/17 19:00 07:00 Intake Total 855 ml 1448.75 ml Output Total 3 ml 500 ml Balance 852 ml 948.75 ml Free Water 100 ml IV Total 505 ml 1028.75 ml Tube Feeding 220 ml 360 ml Other 30 ml 60 ml Output Urine Total 3 ml 500 ml # Voids 1 # Bowel Movements 4 1 Objective General Appearance: WD/WN Lines, tubes and drains: peripheral, gtube HEENT: normocephalic Neck: non-tender, normal alignment, supple Respiratory/Chest: chest wall non-tender, rhonchi - left, stridor Breasts: no masses Cardiovascular/Chest: normal peripheral pulses Abdomen: normal bowel sounds, non tender, Gtube Genitourinary/Rectal: normal genital exam Extremities: normal range of Microbiology Date/Time Source Procedure Growth Status 05/21/17 22:02 Blood Blood Culture - Preliminary NO GROWTH AFTER 24 HOURS Resulted 05/21/17 22:02 Blood Blood Culture - Preliminary NO GROWTH AFTER 24 HOURS Resulted 05/21/17 22:12 Nasal Nares Influenza Types A,B Antigen (JETHRO) - Final Complete Laboratory Tests 05/23/17 05:40: White Blood Count 9.8, Red Blood Count 4.49L, Hemoglobin 13.5L, Hematocrit 39.9L , Mean Corpuscular Volume 89, Mean Corpuscular Hemoglobin 30.0, Mean Corpuscular Hemoglobin Concent 33.8, Red Cell Distribution Width 13.7, Platelet Count 222, Mean Platelet Volume 6.9, Neutrophils (%) (Auto) 78.3H, Lymphocytes ( %) (Auto) 12.7L, Monocytes (%) (Auto) 6.3, Eosinophils (%) (Auto) 2.0, Basophils (%) (Auto) 0.7, Sodium Level 141, Potassium Level 3.8, Chloride Level 102, Carbon Dioxide Level 33H, Anion Gap 6, Blood Urea Nitrogen 32H, Creatinine 1.6H, Estimat Glomerular Filtration Rate , Glucose Level 113H, Calcium Level 9.0 , Phosphorus Level 3.5, Troponin I 0.059H, Pro-B-Type Natriuretic Peptide 776H, Albumin 2.9L, Free Thyroxine 1.22 Current Medications Medications (Trade) Dose Ordered Sig/Dimas Route PRN Reason Start Time Stop Time Status Last Admin Dose Admin Acetaminophen (Tylenol) 650 mg Q4H PRN ORAL fever 05/22/17 05:45 06/21/17 05:44 Al Hydroxide/Mg Hydroxide (Mylanta II) 30 ml Q6H PRN ORAL dyspepsia 05/22/17 05:45 06/21/17 05:44 Albuterol/ Ipratropium (Albuterol/ Ipratropium) 3 ml Q4H PRN HHN Shortness of Breath 05/22/17 05:45 05/27/17 05:44 05/22/17 23:41 Amlodipine Besylate (Norvasc) 10 mg DAILY GT 05/22/17 09:00 06/21/17 08:59 05/23/17 08:24 Cefepime HCl 1 gm/ Sodium Chloride 55 ml @ 110 mls/hr EVERY 12 HOURS IV 05/22/17 09:00 05/29/17 08:59 05/23/17 08:24 Gabapentin (Neurontin) 300 mg THREE TIMES A DAY GT 05/22/17 09:00 06/21/17 08:59 05/23/17 08:24 Heparin Sodium (Porcine) (Heparin 5000 units/ml) 5,000 units EVERY 12 HOURS SUBQ 05/22/17 09:00 06/21/17 08:59 05/23/17 08:23 Hydralazine HCl (Apresoline) 50 mg EVERY 8 HOURS GT 05/22/17 06:00 06/21/17 05:59 05/23/17 05:50 Insulin Aspart (NovoLOG) BEFORE MEALS AND HS SUBQ 05/22/17 16:30 06/21/17 16:29 05/23/17 05:52 Nitroglycerin (Ntg) 0.4 mg Q5M PRN SL Prn Chest Pain 05/22/17 05:45 06/21/17 05:44 Ondansetron HCl (Zofran) 4 mg Q6H PRN IVP Nausea & Vomiting 05/22/17 05:45 06/21/17 05:44 Polyethylene Glycol (Miralax) 17 gm DAILYPRN PRN ORAL Constipation 05/22/17 05:45 06/21/17 05:44 Promethazine HCl/ Codeine (Phenergan with Codeine) 5 ml Q4H PRN ORAL For Cough 05/22/17 05:45 06/21/17 05:44 Sodium Chloride 1,000 ml @ 75 mls/hr [id number] IV 05/22/17 12:30 06/21/17 12:29 05/23/17 01:46 Temazepam (Restoril) 15 mg HSPRN PRN ORAL Insomnia 05/22/17 05:45 05/29/17 05:44 MANISHA REES May 23, 2017 11:59
[2017-05-23 12:00] VITALS: BP 139/65
--- NOTE | 2017-05-23 13:45 | General Progress Note ---
Assessment/Plan Problem List: (1) UTI (urinary tract infection) ICD Codes: N39.0 - Urinary tract infection, site not specified SNOMED: 02628634 (2) Fever ICD Codes: R50.9 - Fever, unspecified SNOMED: 977111019 (3) PNA (pneumonia) ICD Codes: J18.9 - Pneumonia, unspecified organism SNOMED: 792588810 (4) Sepsis ICD Codes: A41.9 - Sepsis SNOMED: 84189895 (5) HTN (hypertension) ICD Codes: I10 - Essential (primary) hypertension SNOMED: 76762008 (6) History of CVA (cerebrovascular accident) ICD Codes: Z86.73 - Personal history of transient ischemic attack (TIA), and cerebral infarction without residual deficits SNOMED: 151839541 (7) Elevated troponin level ICD Codes: R74.8 - Abnormal levels of other serum enzymes SNOMED: 446955172, 362728399, 246256544 Status: unchanged Assessment/Plan o2 pul tx abx ot pt diet cardio eval cbc bmp am Subjective Constitutional: Reports: weakness Allergies: Coded Allergies: NO KNOWN ALLERGIES (Unverified Allergy, Unknown, 10/07/15) NO KNOWN DRUG ALLERGIES (Unverified Allergy, Unknown, 05/29/14) All Systems: reviewed and negative except above Subjective o2nc sleepy Objective Last 24 Hour Vital Signs Date Time Temp Pulse Resp B/P (MAP) Pulse Ox O2 Delivery O2 Flow Rate FiO2 05/23/17 13:22 139/65 05/23/17 12:00 93 05/23/17 12:00 98.2 93 18 139/65 93 Nasal Cannula 2.0 05/23/17 08:24 97 134/72 05/23/17 08:00 96 05/23/17 08:00 98.8 97 18 134/72 97 Nasal Cannula 2.0 05/23/17 07:15 Nasal Cannula 4.0 36 05/23/17 07:15 96 Nasal Cannula 4.0 36 05/23/17 05:50 150/77 05/23/17 04:00 98.4 95 20 150/77 96 Nasal Cannula 2.0 05/23/17 04:00 97 05/23/17 00:00 98.0 108 24 136/84 99 Nasal Cannula 2.0 05/23/17 00:00 94 05/22/17 23:42 96 18 99 Nasal Cannula 3.0 36 05/22/17 23:42 93 22 96 Nasal Cannula 3.0 36 05/22/17 21:00 133/64 05/22/17 20:30 Nasal Cannula 4.0 36 05/22/17 20:30 95 Nasal Cannula 4.0 36 05/22/17 20:00 89 05/22/17 20:00 99.0 90 24 133/64 95 Nasal Cannula 2.0 05/22/17 16:00 99.2 94 19 140/59 94 Nasal Cannula 2.0 05/22/17 16:00 90 05/22/17 14:33 137/71 Intake and Output 05/22/17 05/23/17 19:00 07:00 Intake Total 855 ml 1448.75 ml Output Total 3 ml 500 ml Balance 852 ml 948.75 ml Free Water 100 ml IV Total 505 ml 1028.75 ml Tube Feeding 220 ml 360 ml Other 30 ml 60 ml Output Urine Total 3 ml 500 ml # Voids 1 # Bowel Movements 4 1 Laboratory Tests 05/23/17 05:40: White Blood Count 9.8, Red Blood Count 4.49L, Hemoglobin 13.5L, Hematocrit 39.9L , Mean Corpuscular Volume 89, Mean Corpuscular Hemoglobin 30.0, Mean Corpuscular Hemoglobin Concent 33.8, Red Cell Distribution Width 13.7, Platelet Count 222, Mean Platelet Volume 6.9, Neutrophils (%) (Auto) 78.3H, Lymphocytes ( %) (Auto) 12.7L, Monocytes (%) (Auto) 6.3, Eosinophils (%) (Auto) 2.0, Basophils (%) (Auto) 0.7, Sodium Level 141, Potassium Level 3.8, Chloride Level 102, Carbon Dioxide Level 33H, Anion Gap 6, Blood Urea Nitrogen 32H, Creatinine 1.6H, Estimat Glomerular Filtration Rate , Glucose Level 113H, Calcium Level 9.0 , Phosphorus Level 3.5, Troponin I 0.059H, Pro-B-Type Natriuretic Peptide 776H, Albumin 2.9L, Free Thyroxine 1.22 Height (Feet): 5 Height (Inches): 6.00 Weight (Pounds): 181 General Appearance: lethargic, confused EENT: normal ENT inspection Neck: normal alignment Cardiovascular: normal peripheral pulses, normal rate, regular rhythm Respiratory/Chest: chest wall non-tender, lungs clear, normal breath sounds Abdomen: normal bowel sounds, non tender, soft Extremities: normal inspection Edema: no edema noted Arm (L), no edema noted Arm (R), no edema noted Leg (L), no edema noted Leg (R), no edema noted Pedal (L), no edema noted Pedal (R), no edema noted Generalized Neurologic: motor weakness Skin: normal pigmentation, warm/dry SOHEILA BEY May 23, 2017 13:45
[2017-05-23 16:00] VITALS: BP 127/71
[2017-05-23] MEDS ORDERED: Nitroglycerin Subl 0.4mg tab SL PRN (17:15)
[2017-05-23] MEDS ORDERED: Albuterol/Ipratropium 3ml neb HHN PRN (17:45)
[2017-05-23] MEDS ORDERED: Promethazine/Codeine 5ml UD ORAL PRN (17:45)
[2017-05-23] MEDS ORDERED: Mylanta II UD 30ml ORAL PRN (17:45)
[2017-05-23] MEDS ORDERED: Miralax 17gm pkt ORAL PRN (18:00)
[2017-05-23 20:00] VITALS: BP 145/70
[2017-05-23] MEDS ORDERED: Cefepime HCl 2 GM in NS 110 ML IV SCH ×4 (22:00)
[2017-05-23] MEDS: Gabapentin 300 MG/6 ML Soln GT SCH (22:18)
[2017-05-24] VITALS: BP 132/60
[2017-05-24 04:00] VITALS: BP 146/73
[2017-05-24] MEDS: Gabapentin 300 MG/6 ML Soln GT SCH ×3 (05:55→21:23)
[2017-05-24] MEDS: HydrALAZINE 50mg tab GT SCH ×3 (05:55→21:23)
[2017-05-24] MEDS: NovoLOG Insulin Flexpen SUBQ SCH ×4 (06:30→21:24)
--- NOTE | 2017-05-24 06:47 | General Progress Note ---
Assessment/Plan Problem List: (1) Malfunction of gastrostomy tube ICD Codes: K94.23 - Gastrostomy malfunction SNOMED: 605555824 (2) Dementia ICD Codes: F03.90 - Unspecified dementia without behavioral disturbance SNOMED: 23199742 (3) HLD (hyperlipidemia) ICD Codes: E78.5 - Hyperlipidemia, unspecified SNOMED: 14255884 (4) Diabetes ICD Codes: E11.9 - Type 2 diabetes mellitus without complications SNOMED: 25593052 Assessment/Plan continue NISS no need for basal insulin change IVF to D5NS Subjective ROS Limited/Unobtainable: Yes Allergies: Coded Allergies: NO KNOWN ALLERGIES (Unverified Allergy, Unknown, 10/07/15) NO KNOWN DRUG ALLERGIES (Unverified Allergy, Unknown, 05/29/14) Subjective GT malfunctioning non verbal Objective Last 24 Hour Vital Signs Date Time Temp Pulse Resp B/P (MAP) Pulse Ox O2 Delivery O2 Flow Rate FiO2 05/24/17 04:00 97.7 85 21 146/73 95 Nasal Cannula 2.0 05/24/17 00:00 97.9 86 20 132/60 98 Nasal Cannula 05/23/17 22:18 145/70 05/23/17 20:23 94 Nasal Cannula 4.0 36 05/23/17 20:23 Nasal Cannula 4.0 36 05/23/17 20:00 97.3 86 20 145/70 97 Nasal Cannula 05/23/17 16:00 88 05/23/17 16:00 99.3 94 18 127/71 94 Nasal Cannula 2.0 05/23/17 13:22 139/65 05/23/17 12:00 93 05/23/17 12:00 98.2 93 18 139/65 93 Nasal Cannula 2.0 05/23/17 08:24 97 134/72 05/23/17 08:00 96 05/23/17 08:00 98.8 97 18 134/72 97 Nasal Cannula 2.0 05/23/17 07:15 Nasal Cannula 4.0 36 05/23/17 07:15 96 Nasal Cannula 4.0 36 Intake and Output 05/23/17 05/24/17 19:00 07:00 Intake Total 1285 ml 820 ml Output Total 300 ml 850 ml Balance 985 ml -30 ml Free Water 260 ml IV Total 695 ml 820 ml Tube Feeding 330 ml Output Urine Total 300 ml 850 ml # Voids 1 # Bowel Movements 5 1 Height (Feet): 5 Height (Inches): 6.00 Weight (Pounds): 181 Neck: normal alignment Cardiovascular: normal rate Respiratory/Chest: decreased breath sounds Abdomen: normal bowel sounds Edema: 1+ Arm (L), 1+ Arm (R), 1+ Leg (L), 1+ Leg (R), 1+ Pedal (L), 1+ Pedal ( R), 1+ Generalized Objective Current Medications Medications (Trade) Dose Ordered Sig/Dimas Route PRN Reason Start Time Stop Time Status Last Admin Dose Admin Acetaminophen (Tylenol) 650 mg Q4H PRN ORAL T>100.5 05/23/17 17:45 06/21/17 05:44 Al Hydroxide/Mg Hydroxide (Mylanta II) 30 ml Q6H PRN ORAL dyspepsia 05/23/17 17:45 06/21/17 05:44 Albuterol/ Ipratropium (Albuterol/ Ipratropium) 3 ml Q4H PRN HHN Shortness of Breath 05/23/17 17:45 05/27/17 05:44 Amlodipine Besylate (Norvasc) 10 mg DAILY GT 05/24/17 09:00 06/21/17 08:59 Cefepime HCl 2 gm/ Sodium Chloride 110 ml @ 220 mls/hr Q24H IV 05/23/17 22:00 05/30/17 21:59 05/23/17 22:18 Gabapentin (Neurontin) 300 mg Q8HR GT 05/23/17 22:00 06/22/17 21:59 05/23/17 22:18 Heparin Sodium (Porcine) (Heparin 5000 units/ml) 5,000 units EVERY 12 HOURS SUBQ 05/23/17 21:00 06/21/17 08:59 05/23/17 22:19 Hydralazine HCl (Apresoline) 50 mg EVERY 8 HOURS GT 05/23/17 22:00 06/21/17 05:59 05/23/17 22:18 Insulin Aspart (NovoLOG) BEFORE MEALS AND HS SUBQ 05/23/17 21:00 06/21/17 16:29 05/23/17 22:18 Nitroglycerin (Ntg) 0.4 mg Q5M PRN SL Prn Chest Pain 05/23/17 17:15 06/21/17 05:44 Ondansetron HCl (Zofran) 4 mg Q6H PRN IVP Nausea & Vomiting 05/23/17 17:45 06/21/17 05:44 Polyethylene Glycol (Miralax) 17 gm DAILYPRN PRN ORAL Constipation 05/23/17 18:00 06/22/17 17:59 Promethazine HCl/ Codeine (Phenergan with Codeine) 5 ml Q4H PRN ORAL For Cough 05/23/17 17:45 06/21/17 05:44 Sodium Chloride 1,000 ml @ 75 mls/hr [id number] IV 05/23/17 18:00 06/21/17 17:59 05/23/17 19:00 Temazepam (Restoril) 15 mg HSPRN PRN ORAL Insomnia 05/23/17 21:00 05/30/17 20:59 Item Value Date Time Bedside Blood Glucose 104 mg/dl 05/24/17 0641 Bedside Blood Glucose 119 mg/dl 05/23/17 2218 Bedside Blood Glucose 111 mg/dl 05/23/17 1641 Bedside Blood Glucose 114 mg/dl 05/23/17 1156 KINSEY LIM May 24, 2017 06:47
[2017-05-24] MEDS: D5NS 1,000 ML IV SCH ×2 (07:05→20:50)
[2017-05-24 08:10] VITALS: BP 158/72
--- NOTE | 2017-05-24 08:33 | Pulmonology Progress Note ---
Assessment/Plan Assessment/Plan ASSESSMENT possible sepsis acute bronchitis Elevated troponin HTN ARF, possible ATN Elevated BNP, possible CHF Atelectasis DM dysphagia, G tube malfunctioning GT, s/p replacement at the bedside Dehydration dementia CVA hx PLAN OF CARE MS floor Abx ID follows, sputum, influenza, blood cx negative CXR with left base atelectasis fup with CXR suction prn O2 HHN prn a/tussive prn cardio follows troponin levels low and flat, likely due to renal failure as per cardio ECHO with pEF 55-60% and RVSP of 13 BNP trending down DVT prophylaxis BP management with CCB and Hydralazine, optimize as needed IVF, monitor renal parameters, lytes, correct as needed, avoid nephrotoxic creat trending down BS management with SS of insulin PT/OT strict aspiration precautions, s/p GT replacement at the bedside by GI. GT feeding, monitor tolerance case discussed and evaluated by supervising physician Subjective Allergies: Coded Allergies: NO KNOWN DRUG ALLERGIES (Unverified Allergy, Unknown, 05/29/14) Subjective leuk resolved, afebrile creat trending down GT malfunctioning Objective Last 24 Hour Vital Signs Date Time Temp Pulse Resp B/P (MAP) Pulse Ox O2 Delivery O2 Flow Rate FiO2 05/24/17 08:10 97.6 88 12 158/72 97 05/24/17 07:25 92 Nasal Cannula 3.0 32 05/24/17 07:25 Nasal Cannula 3.0 32 05/24/17 04:00 97.7 85 21 146/73 95 Nasal Cannula 2.0 05/24/17 00:00 97.9 86 20 132/60 98 Nasal Cannula 05/23/17 22:18 145/70 05/23/17 20:23 94 Nasal Cannula 4.0 36 05/23/17 20:23 Nasal Cannula 4.0 36 05/23/17 20:00 97.3 86 20 145/70 97 Nasal Cannula 05/23/17 16:00 88 05/23/17 16:00 99.3 94 18 127/71 94 Nasal Cannula 2.0 05/23/17 13:22 139/65 05/23/17 12:00 93 05/23/17 12:00 98.2 93 18 139/65 93 Nasal Cannula 2.0 Intake and Output 05/23/17 05/24/17 19:00 07:00 Intake Total 1285 ml 820 ml Output Total 300 ml 850 ml Balance 985 ml -30 ml Free Water 260 ml IV Total 695 ml 820 ml Tube Feeding 330 ml Output Urine Total 300 ml 850 ml # Voids 1 # Bowel Movements 5 1 General Appearance: other - bedridden elderly male in NAD HEENT: normocephalic, atraumatic Respiratory/Chest: other - coarse BS Cardiovascular: normal rate, no JVD Abdomen: normal bowel sounds, soft, non tender, other - G tube Neurologic/Psychiatric: abnormal gait - bedridden Musculoskeletal: atrophy - BLE Microbiology Date/Time Source Procedure Growth Status 05/21/17 22:02 Blood Blood Culture - Preliminary NO GROWTH AFTER 48 HOURS Resulted 05/21/17 22:02 Blood Blood Culture - Preliminary NO GROWTH AFTER 48 HOURS Resulted 05/22/17 21:00 Sputum Gram Stain - Final Resulted 05/22/17 21:00 Sputum Sputum Culture Pending Resulted 05/21/17 22:12 Nasal Nares Influenza Types A,B Antigen (JETHRO) - Final Complete Current Medications Medications (Trade) Dose Ordered Sig/Dimas Route PRN Reason Start Time Stop Time Status Last Admin Dose Admin Acetaminophen (Tylenol) 650 mg Q4H PRN ORAL T>100.5 05/23/17 17:45 06/21/17 05:44 Al Hydroxide/Mg Hydroxide (Mylanta II) 30 ml Q6H PRN ORAL dyspepsia 05/23/17 17:45 06/21/17 05:44 Albuterol/ Ipratropium (Albuterol/ Ipratropium) 3 ml Q4H PRN HHN Shortness of Breath 05/23/17 17:45 05/27/17 05:44 Amlodipine Besylate (Norvasc) 10 mg DAILY GT 05/24/17 09:00 06/21/17 08:59 Cefepime HCl 2 gm/ Sodium Chloride 110 ml @ 220 mls/hr Q24H IV 05/23/17 22:00 05/30/17 21:59 05/23/17 22:18 Dextrose/Sodium Chloride 1,000 ml @ 75 mls/hr [id number] IV 05/24/17 07:30 06/23/17 07:29 05/24/17 07:05 Gabapentin (Neurontin) 300 mg Q8HR GT 05/23/17 22:00 06/22/17 21:59 05/23/17 22:18 Heparin Sodium (Porcine) (Heparin 5000 units/ml) 5,000 units EVERY 12 HOURS SUBQ 05/23/17 21:00 06/21/17 08:59 05/23/17 22:19 Hydralazine HCl (Apresoline) 50 mg EVERY 8 HOURS GT 05/23/17 22:00 06/21/17 05:59 05/23/17 22:18 Insulin Aspart (NovoLOG) BEFORE MEALS AND HS SUBQ 05/23/17 21:00 06/21/17 16:29 05/23/17 22:18 Nitroglycerin (Ntg) 0.4 mg Q5M PRN SL Prn Chest Pain 05/23/17 17:15 06/21/17 05:44 Ondansetron HCl (Zofran) 4 mg Q6H PRN IVP Nausea & Vomiting 05/23/17 17:45 06/21/17 05:44 Polyethylene Glycol (Miralax) 17 gm DAILYPRN PRN ORAL Constipation 05/23/17 18:00 06/22/17 17:59 Promethazine HCl/ Codeine (Phenergan with Codeine) 5 ml Q4H PRN ORAL For Cough 05/23/17 17:45 06/21/17 05:44 Temazepam (Restoril) 15 mg HSPRN PRN ORAL Insomnia 05/23/17 21:00 05/30/17 20:59 Kem ([facility])Geovanna NP May 24, 2017 08:32
[2017-05-24] MEDS: Heparin 5000 units/ml inj SUBQ SCH ×2 (08:48→21:25)
[2017-05-24 08:55] LABS: BASOPHILS % (AUTO) 0.9 % (0.0-2.0); EOSINOPHILS % (AUTO) 1.7 % (0.0-3.0); HEMATOCRIT 38.6 % (42.0-52.0); HEMOGLOBIN 12.6 G/DL (14.2-18.0); LYMPHOCYTES % (AUTO) 17.8 % (20.0-45.0); MEAN CORPUSCULAR VOLUME 89 FL (80-99); MONOCYTES % (AUTO) 7.5 % (1.0-10.0); NEUTROPHILS % (AUTO) 72.1 % (45.0-75.0); PLATELET COUNT 208 K/UL (150-450); RED BLOOD COUNT 4.32 M/UL (4.70-6.10); RED CELL DISTRIBUTION WIDTH 13.3 % (11.6-14.8); WHITE BLOOD COUNT 6.2 K/UL (4.8-10.8)
--- NOTE | 2017-05-24 09:30 | Wound Care Consultation ---
Wound Assessment Wound Assessment : Wound Number: 1 Wound Present on Admission: Yes New Wound: No Status Change of Wound: No Wound Location Body Site: sacral Wound Type: pressure ulcer [place] Test: Does not [place] Pressure Ulcer Stage: II - resurface Wound Thickness: Partial Thickness Wound Length: 2.0 Wound Width: 2.0 Wound Depth: less than 0.1 Percent of Wound [place]/Red: 100 Wound Drainage Amount: None Wound Drainage Odor: None/Absent Tissue Surrounding Wound: scar tissue Wound General Appearance: Reddened Wound Comment #1 Resurface stage II pressure ulcer on sacral area Recommendation -Local wound care per protocol -Keep clean ad dry -Optimize nutrition -Offload both heels -Heel protector on both heels -Turn and reposition -Low air loss SPR mattress -Assess and f/u accordingly for any changes NIYAH BROCK RN May 24, 2017 09:30
[2017-05-24 09:35] LABS: ANION GAP 10 mmol/L (5-15); BLOOD UREA NITROGEN 27 mg/dL (7-18); CARBON DIOXIDE 28 MMOL/L (21-32); CHLORIDE 104 MMOL/L (98-107); CREATININE 1.4 MG/DL (0.55-1.30); POTASSIUM 3.6 MMOL/L (3.5-5.1); SODIUM 142 MMOL/L (136-145)
--- NOTE | 2017-05-24 11:14 | GI Initial Consult Note ---
AnaLivia Jonnie N.P. 05/24/17 1114: History of Present Illness General Date patient seen: May 24, 2017 Time patient seen: 11:04 Reason for Hospitalization: Fever Referring physician: SOHEILA BEY Reason for Consultation: GT site malfunction Present Illness HPI 81-year-old male, bedbound, nonverbal, G-tube, diabetes, hypertension, presenting with fever. And EMS states that he had a fever today, however no other history is able to be obtained. Patient nonverbal. Currently afebrile rectally. GI consulted for GT malfunction. ROS limited, non verbal. Seen on floor awake NAD with no active s/sx of N/VD. Reports from RN that the balloon in the GT had burst. Site assessed noted a 30 occitan kong cath, not GT present. No edema or erythema noted around the site. Presents today with anemia, renal insufficiency and elevated troponin levels. Unknown history of endoscopic / colonoscopies. Home Meds Active Scripts Insulin Aspart (Novolog Flexpen) 100 Unit/1 Ml Insuln.pen, 0 UNITS SUBQ BEFORE MEALS AND HS, #1 EA Prov:Kem ([facility])Geovanna [employer] 05/26/17 Levofloxacin* (LEVAQUIN*) 250 Mg Tablet, 250 MG GT DAILY, #1 TAB Prov:eKm (Raymond)Geovanna NP 05/26/17 Hydralazine HCl (Hydralazine HCl) 50 Mg Tablet, 50 MG GT EVERY 8 HOURS, #90 TAB Prov:Kem (Vanchtein)Geovanna [employer] 05/26/17 Furosemide* (LASIX*) 40 Mg Tablet, 40 MG ORAL DAILY, #30 TAB Prov:DYLAN SUNG 10/08/14 Reported Medications Calcium Carbonate/Vitamin D3 (CALCIUM + VITAMIN D TABLET) 1 Each Tablet, PO, TAB 05/21/17 Fish Oil (Fish Oil 1,000 mg Capsule) 1 Each Capsule, 1000 MG GT DAILY, CAP 05/21/17 Gabapentin* (NEURONTIN*) 100 Mg Capsule, 300 MG GT THREE TIMES A DAY, CAP 11/10/15 Furosemide* (LASIX*) 40 Mg Tablet, 40 MG GT DAILY, TAB 11/10/15 Insulin Glargine (Lantus) 100 Unit/1 Ml Vial, 32 UNITS SUBQ BEDTIME, #1 EA 0 Refills 11/10/15 Insulin Lispro (HUMALOG) 100 Unit/1 Ml Insuln.pen, SUBQ, #1 EA 0 Refills 11/10/15 Glipizide* (GLUCOTROL*) 10 Mg Tablet, 10 MG GT BID, #10 TAB 0 Refills 11/10/15 Glyburide* (DIABETA*) 5 Mg Tablet, 5 MG GT BIAC, #60 TAB 0 Refills Take with meals 02/23/15 Insulin Lispro (HUMALOG) 100 Unit/1 Ml Insuln.pen, 0 SUBQ, #1 EA 0 Refills 12/07/14 Acetaminophen (Tylenol) 325 Mg Tab, 325 MG Q6H for Prn Pain/Headache/Temp > 101 , #30 TAB 0 Refills 12/07/14 Multivitamin With Minerals (MULTIVITAMINS WITH MINERALS*) 1 Each Tablet, 1 TAB ORAL DAILY, TAB 12/07/14 Calcium/Cranberry Fruit (CRANBERRY 400 MG CAPLET) 1 Each Tablet, 1 EACH PO EVERY 12 HOURS, TAB 12/07/14 Pravastatin Sod (PRAVASTATIN SOD) 40 Mg Tablet, 40 MG GT BEDTIME, TAB 12/07/14 Gabapentin (Neurontin) 300 Mg Cap, 300 MG GT THREE TIMES A DAY, #15 CAP 0 Refills 02/08/14 Magnesium Hydroxide* (MILK OF MAGNESIA*) 2,400 Mg/10 Ml Oral.susp, 30 ML ORAL HS Y for Constipation, ML 10/30/13 Vit C/Ascorbate Ca/Ascorb Sod (VITAMIN C 500 MG/15 ML LIQUID) 500 Mg/15 Ml Liquid, 500 MG GT BID, ML 10/27/13 Amlodipine Besylate (Norvasc) 10 Mg Tab, 10 MG GT DAILY, TAB 10/27/13 Insulin Lispro (HUMALOG) 100 Unit/1 Ml Cartridge, 0 SUBQ, UNITS 0 Refills 10/27/13 Na Phos,M-B/Na Phos,Di-Ba* (FLEET ENEMA*) 133 Ml Enema, 133 ML RECTAL DAILY Y for CON, ML 0 Refills 10/27/13 Docusate Sodium (DOCUSATE SODIUM) 50 Mg/5 Ml Liquid, 100 MG GT BID, ML 10/27/13 Aspirin* (ASPIR 81*) 81 Mg Tablet.dr, 81 MG GT DAILY, TAB 10/27/13 Discontinued Reported Medications Amlodipine Besylate (Norvasc) 10 Mg Tablet, 10 MG GT DAILY, TAB 11/10/15 Hydralazine Hcl* (HYDRALAZINE HCL*) 50 Mg Tablet, 50 MG GT CLIFFORD, TAB 10/27/13 Med list reviewed/reconciled: Yes Allergies: Coded Allergies: NO KNOWN DRUG ALLERGIES (Unverified Allergy, Unknown, 05/29/14) Patient History Limited by: medical condition History Provided By: Medical Record PMH Narrative Hx Hypertension: Yes Hx COPD: No - Pneumonia, Sepsis Hx Diabetes: Yes Hx Cancer: No Hx Gastrointestinal Problems: Yes - G tube Hx Cerebrovascular Accident: Yes Hx Dementia: Yes Hx Head Trauma: Yes Hx Aphasia: Yes Hx Weakness: Yes Hx Neurologic Surgery: No Hx Brain Shunt: No Review of Systems All Other Systems: limited Physical Exam Vital Signs Date Time Temp Pulse Resp B/P (MAP) Pulse Ox O2 Delivery O2 Flow Rate FiO2 05/21/17 21:52 98.6 81 16 152/65 94 Nasal Cannula 2.0 05/22/17 03:00 36 Sp02 EP Interpretation: reviewed, normal Labs Laboratory Tests Test 05/24/17 08:00 White Blood Count 6.2 K/UL (4.8-10.8) Red Blood Count 4.32 M/UL (4.70-6.10) L Hemoglobin 12.6 G/DL (14.2-18.0) L Hematocrit 38.6 % (42.0-52.0) L Mean Corpuscular Volume 89 FL (80-99) Mean Corpuscular Hemoglobin 29.3 PG (27.0-31.0) Mean Corpuscular Hemoglobin Concent 32.7 G/DL (32.0-36.0) Red Cell Distribution Width 13.3 % (11.6-14.8) Platelet Count 208 K/UL (150-450) Mean Platelet Volume 6.7 FL (6.5-10.1) Neutrophils (%) (Auto) 72.1 % (45.0-75.0) Lymphocytes (%) (Auto) 17.8 % (20.0-45.0) L Monocytes (%) (Auto) 7.5 % (1.0-10.0) Eosinophils (%) (Auto) 1.7 % (0.0-3.0) Basophils (%) (Auto) 0.9 % (0.0-2.0) Sodium Level 142 MMOL/L (136-145) Potassium Level 3.6 MMOL/L (3.5-5.1) Chloride Level 104 MMOL/L (98-107) Carbon Dioxide Level 28 MMOL/L (21-32) Anion Gap 10 mmol/L (5-15) Blood Urea Nitrogen 27 mg/dL (7-18) H Creatinine 1.4 MG/DL (0.55-1.30) H Estimat Glomerular Filtration Rate mL/min (>60) Glucose Level 104 MG/DL (74-106) Calcium Level 9.0 MG/DL (8.5-10.1) General Appearance: no apparent distress Head: normocephalic EENT: PERRL/EOMI, normal ENT inspection Neck: supple Respiratory: normal breath sounds, no respiratory distress Cardiovascular: normal rate Gastrointestinal: normal inspection, non tender, soft, normal bowel sounds, non -distended, gt - replaced Rectal: deferred Genitourinary: deferred Musculoskeletal: normal inspection, back normal Neurologic: alert, responsive Skin: normal inspection, normal color, no rash, warm/dry, palpation normal, well hydrated Lymphatic: normal inspection, no adenopathy Current Medications Current Medications Medications (Trade) Dose Ordered Sig/Dimas Route PRN Reason Start Time Stop Time Status Last Admin Dose Admin Acetaminophen (Tylenol) 650 mg Q4H PRN ORAL T>100.5 05/23/17 17:45 06/21/17 05:44 Al Hydroxide/Mg Hydroxide (Mylanta II) 30 ml Q6H PRN ORAL dyspepsia 05/23/17 17:45 06/21/17 05:44 Albuterol/ Ipratropium (Albuterol/ Ipratropium) 3 ml Q4H PRN HHN Shortness of Breath 05/23/17 17:45 05/27/17 05:44 Amlodipine Besylate (Norvasc) 10 mg DAILY GT 05/24/17 09:00 06/21/17 08:59 Cefepime HCl 2 gm/ Sodium Chloride 110 ml @ 220 mls/hr Q24H IV 05/23/17 22:00 05/30/17 21:59 05/23/17 22:18 Dextrose/Sodium Chloride 1,000 ml @ 75 mls/hr [id number] IV 05/24/17 07:30 06/23/17 07:29 05/24/17 07:05 Gabapentin (Neurontin) 300 mg Q8HR GT 05/23/17 22:00 06/22/17 21:59 05/23/17 22:18 Heparin Sodium (Porcine) (Heparin 5000 units/ml) 5,000 units EVERY 12 HOURS SUBQ 05/23/17 21:00 06/21/17 08:59 05/24/17 08:48 Hydralazine HCl (Apresoline) 50 mg EVERY 8 HOURS GT 05/23/17 22:00 06/21/17 05:59 05/23/17 22:18 Insulin Aspart (NovoLOG) BEFORE MEALS AND HS SUBQ 05/23/17 21:00 06/21/17 16:29 05/23/17 22:18 Nitroglycerin (Ntg) 0.4 mg Q5M PRN SL Prn Chest Pain 05/23/17 17:15 06/21/17 05:44 Ondansetron HCl (Zofran) 4 mg Q6H PRN IVP Nausea & Vomiting 05/23/17 17:45 06/21/17 05:44 Polyethylene Glycol (Miralax) 17 gm DAILYPRN PRN ORAL Constipation 05/23/17 18:00 06/22/17 17:59 Promethazine HCl/ Codeine (Phenergan with Codeine) 5 ml Q4H PRN ORAL For Cough 05/23/17 17:45 06/21/17 05:44 Temazepam (Restoril) 15 mg HSPRN PRN ORAL Insomnia 05/23/17 21:00 05/30/17 20:59 GI: Plan Problems: (1) Malfunction of gastrostomy tube (2) Diabetes (3) Feeding by G-tube (4) Dehydration (5) PEG (percutaneous endoscopic gastrostomy) adjustment/replacement/removal (6) Dementia Plan 30fr kong was replaced by 24fr GT at bedside - ok to use after imaging confirmation. GT dressing must be changed BID/prn - observe for leaking due to stoma size, may need closure if excessive. GTFs per RD anemia work up OB stool r/o GI bleed monitor H&H, prn transfusions bowel regime ppi fu labs Discussed with Dr. Nobles. Thank you for this patient referral, we will follow. ELTON NOBLES 05/27/17 0633: History of Present Illness General Reason for Hospitalization: Fever Present Illness Home Meds Active Scripts Insulin Aspart (Novolog Flexpen) 100 Unit/1 Ml Insuln.pen, 0 UNITS SUBQ BEFORE MEALS AND HS, #1 EA Prov:Brownlee ([facility]),Geovanna [employer] 05/26/17 Levofloxacin* (LEVAQUIN*) 250 Mg Tablet, 250 MG GT DAILY, #1 TAB Prov:Brownlee ([facility]),Geovanna [employer] 05/26/17 Hydralazine HCl (Hydralazine HCl) 50 Mg Tablet, 50 MG GT EVERY 8 HOURS, #90 TAB Prov:Brownlee ([facility]),Geovanna [employer] 05/26/17 Furosemide* (LASIX*) 40 Mg Tablet, 40 MG ORAL DAILY, #30 TAB Prov:DYLAN SUNG 10/08/14 Reported Medications Calcium Carbonate/Vitamin D3 (CALCIUM + VITAMIN D TABLET) 1 Each Tablet, PO, TAB 05/21/17 Fish Oil (Fish Oil 1,000 mg Capsule) 1 Each Capsule, 1000 MG GT DAILY, CAP 05/21/17 Gabapentin* (NEURONTIN*) 100 Mg Capsule, 300 MG GT THREE TIMES A DAY, CAP 11/10/15 Furosemide* (LASIX*) 40 Mg Tablet, 40 MG GT DAILY, TAB 11/10/15 Insulin Glargine (Lantus) 100 Unit/1 Ml Vial, 32 UNITS SUBQ BEDTIME, #1 EA 0 Refills 11/10/15 Insulin Lispro (HUMALOG) 100 Unit/1 Ml Insuln.pen, SUBQ, #1 EA 0 Refills 11/10/15 Glipizide* (GLUCOTROL*) 10 Mg Tablet, 10 MG GT BID, #10 TAB 0 Refills 11/10/15 Glyburide* (DIABETA*) 5 Mg Tablet, 5 MG GT BIAC, #60 TAB 0 Refills Take with meals 02/23/15 Insulin Lispro (HUMALOG) 100 Unit/1 Ml Insuln.pen, 0 SUBQ, #1 EA 0 Refills 12/07/14 Acetaminophen (Tylenol) 325 Mg Tab, 325 MG Q6H for Prn Pain/Headache/Temp > 101 , #30 TAB 0 Refills 12/07/14 Multivitamin With Minerals (MULTIVITAMINS WITH MINERALS*) 1 Each Tablet, 1 TAB ORAL DAILY, TAB 12/07/14 Calcium/Cranberry Fruit (CRANBERRY 400 MG CAPLET) 1 Each Tablet, 1 EACH PO EVERY 12 HOURS, TAB 12/07/14 Pravastatin Sod (PRAVASTATIN SOD) 40 Mg Tablet, 40 MG GT BEDTIME, TAB 12/07/14 Gabapentin (Neurontin) 300 Mg Cap, 300 MG GT THREE TIMES A DAY, #15 CAP 0 Refills 02/08/14 Magnesium Hydroxide* (MILK OF MAGNESIA*) 2,400 Mg/10 Ml Oral.susp, 30 ML ORAL HS Y for Constipation, ML 10/30/13 Vit C/Ascorbate Ca/Ascorb Sod (VITAMIN C 500 MG/15 ML LIQUID) 500 Mg/15 Ml Liquid, 500 MG GT BID, ML 10/27/13 Amlodipine Besylate (Norvasc) 10 Mg Tab, 10 MG GT DAILY, TAB 10/27/13 Insulin Lispro (HUMALOG) 100 Unit/1 Ml Cartridge, 0 SUBQ, UNITS 0 Refills 10/27/13 Na Phos,M-B/Na Phos,Di-Ba* (FLEET ENEMA*) 133 Ml Enema, 133 ML RECTAL DAILY Y for CON, ML 0 Refills 10/27/13 Docusate Sodium (DOCUSATE SODIUM) 50 Mg/5 Ml Liquid, 100 MG GT BID, ML 10/27/13 Aspirin* (ASPIR 81*) 81 Mg Tablet.dr, 81 MG GT DAILY, TAB 10/27/13 Discontinued Reported Medications Amlodipine Besylate (Norvasc) 10 Mg Tablet, 10 MG GT DAILY, TAB 11/10/15 Hydralazine Hcl* (HYDRALAZINE HCL*) 50 Mg Tablet, 50 MG GT CLIFFORD, TAB 10/27/13 Allergies: Coded Allergies: NO KNOWN DRUG ALLERGIES (Unverified Allergy, Unknown, 05/29/14) GI: Plan Plan The patient was seen and examined at bedside and all new and available data was reviewed in the patients chart. I agree with the above findings, impression and plan. (Patient seen earlier today. Signature stamp does not reflect patient encounter time.). - MD Ana Diez Anh Jonnie N.PMaria Isabel May 24, 2017 11:14 ELTON NOBLES May 27, 2017 06:33
--- NOTE | 2017-05-24 11:17 | General Progress Note ---
Assessment/Plan Problem List: (1) UTI (urinary tract infection) ICD Codes: N39.0 - Urinary tract infection, site not specified SNOMED: 26652497 (2) Fever ICD Codes: R50.9 - Fever, unspecified SNOMED: 289647467 (3) PNA (pneumonia) ICD Codes: J18.9 - Pneumonia, unspecified organism SNOMED: 471991687 (4) Sepsis ICD Codes: A41.9 - Sepsis SNOMED: 17899763 (5) HTN (hypertension) ICD Codes: I10 - Essential (primary) hypertension SNOMED: 86149054 (6) History of CVA (cerebrovascular accident) ICD Codes: Z86.73 - Personal history of transient ischemic attack (TIA), and cerebral infarction without residual deficits SNOMED: 919058027 (7) Elevated troponin level ICD Codes: R74.8 - Abnormal levels of other serum enzymes SNOMED: 224129419, 578123147, 329205918 Status: stable, progressing Assessment/Plan o2 pul tx abx ot pt diet cardio eval dc if cardio and id Subjective Constitutional: Reports: weakness Allergies: Coded Allergies: NO KNOWN ALLERGIES (Unverified Allergy, Unknown, 10/07/15) NO KNOWN DRUG ALLERGIES (Unverified Allergy, Unknown, 05/29/14) All Systems: reviewed and negative except above Subjective o2nc sleepy Objective Last 24 Hour Vital Signs Date Time Temp Pulse Resp B/P (MAP) Pulse Ox O2 Delivery O2 Flow Rate FiO2 05/24/17 08:10 97.6 88 12 158/72 97 05/24/17 07:25 92 Nasal Cannula 3.0 32 05/24/17 07:25 Nasal Cannula 3.0 32 05/24/17 04:00 97.7 85 21 146/73 95 Nasal Cannula 2.0 05/24/17 00:00 97.9 86 20 132/60 98 Nasal Cannula 05/23/17 22:18 145/70 05/23/17 20:23 94 Nasal Cannula 4.0 36 05/23/17 20:23 Nasal Cannula 4.0 36 05/23/17 20:00 97.3 86 20 145/70 97 Nasal Cannula 05/23/17 16:00 88 05/23/17 16:00 99.3 94 18 127/71 94 Nasal Cannula 2.0 05/23/17 13:22 139/65 05/23/17 12:00 93 05/23/17 12:00 98.2 93 18 139/65 93 Nasal Cannula 2.0 Intake and Output 05/23/17 05/24/17 19:00 07:00 Intake Total 1285 ml 820 ml Output Total 300 ml 850 ml Balance 985 ml -30 ml Free Water 260 ml IV Total 695 ml 820 ml Tube Feeding 330 ml Output Urine Total 300 ml 850 ml # Voids 1 # Bowel Movements 5 1 Laboratory Tests 05/24/17 08:00: White Blood Count 6.2, Red Blood Count 4.32L, Hemoglobin 12.6L, Hematocrit 38.6L , Mean Corpuscular Volume 89, Mean Corpuscular Hemoglobin 29.3, Mean Corpuscular Hemoglobin Concent 32.7, Red Cell Distribution Width 13.3, Platelet Count 208, Mean Platelet Volume 6.7, Neutrophils (%) (Auto) 72.1, Lymphocytes (% ) (Auto) 17.8L, Monocytes (%) (Auto) 7.5, Eosinophils (%) (Auto) 1.7, Basophils (%) (Auto) 0.9, Sodium Level 142, Potassium Level 3.6, Chloride Level 104, Carbon Dioxide Level 28, Anion Gap 10, Blood Urea Nitrogen 27H, Creatinine 1.4H , Estimat Glomerular Filtration Rate , Glucose Level 104, Calcium Level 9.0 Height (Feet): 5 Height (Inches): 6.00 Weight (Pounds): 181 General Appearance: lethargic, confused EENT: normal ENT inspection Neck: normal alignment Cardiovascular: normal peripheral pulses, normal rate, regular rhythm Respiratory/Chest: chest wall non-tender, lungs clear, normal breath sounds Abdomen: normal bowel sounds, non tender, soft Extremities: normal inspection Edema: no edema noted Arm (L), no edema noted Arm (R), no edema noted Leg (L), no edema noted Leg (R), no edema noted Pedal (L), no edema noted Pedal (R), no edema noted Generalized Neurologic: motor weakness Skin: normal pigmentation, warm/dry SOHEILA BEY May 24, 2017 11:17
--- NOTE | 2017-05-24 12:04 | Infectious Diseases Prog Note ---
Assessment/Plan Assessment/Plan A; Sepsis improving Bronchitis, atelectasis Acute renal failure DM Elevated troponin Dementia P; Change Cefepime to Levaquin, continue antibiotic X 3 days agree with discharge to SNF Subjective ROS Limited/Unobtainable: Yes Allergies: Coded Allergies: NO KNOWN ALLERGIES (Unverified Allergy, Unknown, 10/07/15) NO KNOWN DRUG ALLERGIES (Unverified Allergy, Unknown, 05/29/14) Objective Vital Signs Last 24 Hour Vital Signs Date Time Temp Pulse Resp B/P (MAP) Pulse Ox O2 Delivery O2 Flow Rate FiO2 05/24/17 08:10 97.6 88 12 158/72 97 05/24/17 07:25 92 Nasal Cannula 3.0 32 05/24/17 07:25 Nasal Cannula 3.0 32 05/24/17 04:00 97.7 85 21 146/73 95 Nasal Cannula 2.0 05/24/17 00:00 97.9 86 20 132/60 98 Nasal Cannula 05/23/17 22:18 145/70 05/23/17 20:23 94 Nasal Cannula 4.0 36 05/23/17 20:23 Nasal Cannula 4.0 36 05/23/17 20:00 97.3 86 20 145/70 97 Nasal Cannula 05/23/17 16:00 88 05/23/17 16:00 99.3 94 18 127/71 94 Nasal Cannula 2.0 05/23/17 13:22 139/65 Height (Feet): 5 Height (Inches): 6.00 Weight (Pounds): 181 General Appearance: no acute distress HEENT: mucous membranes moist Respiratory/Chest: lungs clear Cardiovascular: normal rate Abdomen: soft, non tender, other - GT feeding Extremities: no edema Neurologic/Psychiatric: other - sleeping Microbiology Date/Time Source Procedure Growth Status 05/21/17 22:02 Blood Blood Culture - Preliminary NO GROWTH AFTER 48 HOURS Resulted 05/21/17 22:02 Blood Blood Culture - Preliminary NO GROWTH AFTER 48 HOURS Resulted 05/22/17 21:00 Sputum Gram Stain - Final Resulted 05/22/17 21:00 Sputum Sputum Culture Pending Resulted 05/21/17 22:12 Nasal Nares Influenza Types A,B Antigen (JETHRO) - Final Complete Laboratory Tests Test 05/24/17 08:00 White Blood Count 6.2 K/UL (4.8-10.8) Red Blood Count 4.32 M/UL (4.70-6.10) L Hemoglobin 12.6 G/DL (14.2-18.0) L Hematocrit 38.6 % (42.0-52.0) L Mean Corpuscular Volume 89 FL (80-99) Mean Corpuscular Hemoglobin 29.3 PG (27.0-31.0) Mean Corpuscular Hemoglobin Concent 32.7 G/DL (32.0-36.0) Red Cell Distribution Width 13.3 % (11.6-14.8) Platelet Count 208 K/UL (150-450) Mean Platelet Volume 6.7 FL (6.5-10.1) Neutrophils (%) (Auto) 72.1 % (45.0-75.0) Lymphocytes (%) (Auto) 17.8 % (20.0-45.0) L Monocytes (%) (Auto) 7.5 % (1.0-10.0) Eosinophils (%) (Auto) 1.7 % (0.0-3.0) Basophils (%) (Auto) 0.9 % (0.0-2.0) Sodium Level 142 MMOL/L (136-145) Potassium Level 3.6 MMOL/L (3.5-5.1) Chloride Level 104 MMOL/L (98-107) Carbon Dioxide Level 28 MMOL/L (21-32) Anion Gap 10 mmol/L (5-15) Blood Urea Nitrogen 27 mg/dL (7-18) H Creatinine 1.4 MG/DL (0.55-1.30) H Estimat Glomerular Filtration Rate mL/min (>60) Glucose Level 104 MG/DL (74-106) Calcium Level 9.0 MG/DL (8.5-10.1) Current Medications Medications (Trade) Dose Ordered Sig/Dimas Route PRN Reason Start Time Stop Time Status Last Admin Dose Admin Acetaminophen (Tylenol) 650 mg Q4H PRN ORAL T>100.5 05/23/17 17:45 06/21/17 05:44 Al Hydroxide/Mg Hydroxide (Mylanta II) 30 ml Q6H PRN ORAL dyspepsia 05/23/17 17:45 06/21/17 05:44 Albuterol/ Ipratropium (Albuterol/ Ipratropium) 3 ml Q4H PRN HHN Shortness of Breath 05/23/17 17:45 05/27/17 05:44 Amlodipine Besylate (Norvasc) 10 mg DAILY GT 05/24/17 09:00 06/21/17 08:59 Cefepime HCl 2 gm/ Sodium Chloride 110 ml @ 220 mls/hr Q24H IV 05/23/17 22:00 05/30/17 21:59 05/23/17 22:18 Dextrose/Sodium Chloride 1,000 ml @ 75 mls/hr [id number] IV 05/24/17 07:30 06/23/17 07:29 05/24/17 07:05 Gabapentin (Neurontin) 300 mg Q8HR GT 05/23/17 22:00 06/22/17 21:59 05/23/17 22:18 Heparin Sodium (Porcine) (Heparin 5000 units/ml) 5,000 units EVERY 12 HOURS SUBQ 05/23/17 21:00 06/21/17 08:59 05/24/17 08:48 Hydralazine HCl (Apresoline) 50 mg EVERY 8 HOURS GT 05/23/17 22:00 06/21/17 05:59 05/23/17 22:18 Insulin Aspart (NovoLOG) BEFORE MEALS AND HS SUBQ 05/23/17 21:00 06/21/17 16:29 05/23/17 22:18 Nitroglycerin (Ntg) 0.4 mg Q5M PRN SL Prn Chest Pain 05/23/17 17:15 06/21/17 05:44 Ondansetron HCl (Zofran) 4 mg Q6H PRN IVP Nausea & Vomiting 05/23/17 17:45 06/21/17 05:44 Polyethylene Glycol (Miralax) 17 gm DAILYPRN PRN ORAL Constipation 05/23/17 18:00 06/22/17 17:59 Promethazine HCl/ Codeine (Phenergan with Codeine) 5 ml Q4H PRN ORAL For Cough 05/23/17 17:45 06/21/17 05:44 Temazepam (Restoril) 15 mg HSPRN PRN ORAL Insomnia 05/23/17 21:00 05/30/17 20:59 MALCOLM LIN May 24, 2017 12:04
[2017-05-24 12:15] VITALS: BP 138/71
--- NOTE | 2017-05-24 12:55 | Consultation ---
DATE OF CONSULTATION: NEPHROLOGY CONSULTATION REASON FOR CONSULT: 1. Acute renal failure. 2. Mild hyponatremia. HISTORY OF PRESENT ILLNESS: The patient is an 82-year-old male with a past medical history significant for hypertension, diabetes, congestive heart failure, hyperlipidemia, failure to thrive, and dysphagia, status post percutaneous endoscopic gastrostomy placement was transferred from [facility] with an increase in altered mental status, fever, coughing, elevated troponin, and sepsis. The patient is in bed at this time. Responds to simple questions with one syllable. Unable to give health information at this time. Therefore, history was obtained from medical records and other consults. He is lying in bed at this time in no apparent distress. He does deny pain. Denies shortness of breath. PAST MEDICAL HISTORY: Significant for encephalopathy, hypertension, history of CVA, diabetes, and hyperlipidemia. PAST SURGICAL HISTORY: Positive for PEG tube placement. OUTPATIENT MEDICATIONS: Include amlodipine 10 mg p.o. daily, aspirin 81 mg p.o. daily, docusate 100 mg p.o. b.i.d., fish oil 1000 mg daily, furosemide 40 mg via G-tube daily, gabapentin 300 mg via G-tube t.i.d., glipizide 10 mg via G-tube b.i.d., glyburide 5 mg via G-tube t.i.d. with meals, hydralazine 50 mg daily, Lantus 32 units subcutaneous at bedtime, insulin lispro for sliding scale coverage, magnesium hydroxide 30 mL p.r.n., multivitamin tab 1 via G-tube daily, and pravastatin 40 mg via G-tube at bedtime. SOCIAL HISTORY: The patient is a resident of [facility]. No history of alcohol use, smoking, or illicit drug use. REVIEW OF SYSTEMS: Limited at this time due to the patient's altered mental state. PHYSICAL EXAMINATION: GENERAL: This is an 82-year-old male, lying in bed at this time, in no apparent distress. VITAL SIGNS: Blood pressure 140/59, heart rate is 94, respiratory rate is 19, temp is 99.2, and O2 saturation is 94% on 2 liters. HEENT: Head is normocephalic and atraumatic with moist mucous membranes. Pupils are equal, round, and reactive to light and accommodation. NECK: Supple. No jugular venous distention noted. LUNGS: Diminished bilaterally. No wheezing noted at this time. CARDIOVASCULAR: Regular rate and rhythm. ABDOMEN: Mildly distended. PEG tube noted. Positive bowel sounds noted in all 4 quadrants. EXTREMITIES: Trace edema noted in bilateral lower extremities. GENITOURINARY: The patient has a Holliday catheter. NEUROLOGIC: He is some confused. LABORATORY DATA: CBC, white count 12.9, hemoglobin 13.5, hematocrit 42.4, and a platelet count of 232,000. BMP, sodium 135, potassium 4.0 chloride 97, bicarb 33, BUN 43, creatinine 1.7, and a blood glucose of 241. Troponin is 0.108. ProBNP 1175. RADIOLOGIC FINDINGS: Chest x-ray impression, left basilar atelectasis. No acute process otherwise. An echocardiogram reveals an ejection fraction estimated at 55% to 60%. ASSESSMENT: 1. Acute renal failure. 2. Dehydration. 3. Mild hyponatremia. 4. Elevated troponin. 5. Congestive heart failure. 6. Altered mental status. 7. Diabetes. 8. Leukocytosis. 9. Hypertension. 10. Hyperlipidemia. PLAN: Agree with current intravenous fluid. We will monitor renal function. We will renally dose medications. Avoid nephrotoxins. Continue G-tube feeding. Monitor residuals. Free water restrictions. Monitor neurological status. Strict glycemic control. Continue nebulizing treatment. Antibiotics per ID. We will monitor the patient's overall response to treatment and make recommendations as necessary. Thank you, Dr. Joe, for letting us participate in the care of this patient. Luis E Green M.D. Lara Solorzano DR: HALI JOB#: [id number] CC:
--- NOTE | 2017-05-24 12:55 | Consultation ---
DATE OF CONSULTATION: 05/22/2017 INFECTIOUS DISEASE CONSULTATION PRIMARY ATTENDING PHYSICIAN: Remberto Joe D.O. REASON FOR CONSULT: Sepsis. HISTORY OF PRESENT ILLNESS: The patient is an 82-year-old male, who is a custodial resident, admitted yesterday because of fever. According to custodial, had a temperature of 102.1. The patient is not a source of history because of CVA and aphasia. He had mild leukocytosis of 12.9 at the time of admission. In the hospital, he was afebrile. PAST MEDICAL HISTORY: Significant for diabetes mellitus type 2, hypertension, dementia, status post CVA, aphasia, and status post G-tube placement. MEDICATIONS: Getting vancomycin, amlodipine, gabapentin, heparin, cefepime, hydralazine, Tylenol, MiraLAX, Mylanta, promethazine with codeine, albuterol, ipratropium inhaler and Zofran. ALLERGIES: No known drug allergies. SOCIAL HISTORY: assisted resident. Divorce. Bedbound. No other history obtainable. PHYSICAL EXAMINATION: GENERAL APPEARANCE: No acute distress. VITAL SIGNS: Temperature 97.8, pulse 85, blood pressure 131/68, and O2 saturation is 96%. HEAD AND NECK: [place] conjunctivae. Poor dental hygiene. HEART: Regular. LUNGS: Clear. ABDOMEN: Soft. Mildly distended. Obese. G-tube without leaking. EXTREMITY: No edema. LABORATORY AND DIAGNOSTIC DATA: WBC 12.9, hemoglobin 13.5, hematocrit 42.4, and platelets 232. Sodium 135, potassium 4, chloride 97, bicarbonate 33, BUN 43, creatinine 1.7 and glucose is 241. Troponin was elevated 0.108. Albumin is 3.2. Chest x-ray showed left basilar atelectasis. IMPRESSION: Sepsis with fever at the custodial and leukocytosis at the hospital. The patient seems to have acute renal failure, has elevated troponin, hypertension and dementia. RECOMMENDATION: We will follow up the culture. We will continue with cefepime. We will discontinue IV vancomycin. At the end of my exam, I thank Dr. Remberto Joe for involving me in the care of this patient. Roc Rahban, M.D. DR: DIEGO JOB#: [id number] CC: VEL
--- NOTE | 2017-05-24 13:22 | Cardiac Electrophysiology PN ---
Assessment/Plan Assessment/Plan 1. Elevated troponins. Levels flat and low.No chest pain.Due to the patient's renal failure. The creatinine is 1.7. EKG does not show any acute ischemic changes. Echo EF 55% 2. Hypertension. Continue amlodipine 10 mg daily and hydralazine 50 q 8 hr. 3. Elevated BNP, likely congestive heart failure due to diastolic dysfunction. EF55% 5. Dementia. 6. Dysphagia, status post percutaneous endoscopic gastrostomy tube placement. DW Daughter at bedside Subjective Subjective Comfortable. Daughter at bedside.On abx. Off tele. EF 55%. Objective Last 24 Hour Vital Signs Date Time Temp Pulse Resp B/P (MAP) Pulse Ox O2 Delivery O2 Flow Rate FiO2 05/24/17 12:15 98.4 79 20 138/71 97 Nasal Cannula 2.0 05/24/17 08:10 97.6 88 12 158/72 97 05/24/17 07:25 92 Nasal Cannula 3.0 32 05/24/17 07:25 Nasal Cannula 3.0 32 05/24/17 04:00 97.7 85 21 146/73 95 Nasal Cannula 2.0 05/24/17 00:00 97.9 86 20 132/60 98 Nasal Cannula 05/23/17 22:18 145/70 05/23/17 20:23 94 Nasal Cannula 4.0 36 05/23/17 20:23 Nasal Cannula 4.0 36 05/23/17 20:00 97.3 86 20 145/70 97 Nasal Cannula 05/23/17 16:00 88 05/23/17 16:00 99.3 94 18 127/71 94 Nasal Cannula 2.0 05/23/17 13:22 139/65 Intake and Output 05/23/17 05/24/17 19:00 07:00 Intake Total 1285 ml 820 ml Output Total 300 ml 850 ml Balance 985 ml -30 ml Free Water 260 ml IV Total 695 ml 820 ml Tube Feeding 330 ml Output Urine Total 300 ml 850 ml # Voids 1 # Bowel Movements 5 1 Laboratory Tests Test 05/24/17 08:00 White Blood Count 6.2 K/UL (4.8-10.8) Red Blood Count 4.32 M/UL (4.70-6.10) L Hemoglobin 12.6 G/DL (14.2-18.0) L Hematocrit 38.6 % (42.0-52.0) L Mean Corpuscular Volume 89 FL (80-99) Mean Corpuscular Hemoglobin 29.3 PG (27.0-31.0) Mean Corpuscular Hemoglobin Concent 32.7 G/DL (32.0-36.0) Red Cell Distribution Width 13.3 % (11.6-14.8) Platelet Count 208 K/UL (150-450) Mean Platelet Volume 6.7 FL (6.5-10.1) Neutrophils (%) (Auto) 72.1 % (45.0-75.0) Lymphocytes (%) (Auto) 17.8 % (20.0-45.0) L Monocytes (%) (Auto) 7.5 % (1.0-10.0) Eosinophils (%) (Auto) 1.7 % (0.0-3.0) Basophils (%) (Auto) 0.9 % (0.0-2.0) Sodium Level 142 MMOL/L (136-145) Potassium Level 3.6 MMOL/L (3.5-5.1) Chloride Level 104 MMOL/L (98-107) Carbon Dioxide Level 28 MMOL/L (21-32) Anion Gap 10 mmol/L (5-15) Blood Urea Nitrogen 27 mg/dL (7-18) H Creatinine 1.4 MG/DL (0.55-1.30) H Estimat Glomerular Filtration Rate mL/min (>60) Glucose Level 104 MG/DL (74-106) Calcium Level 9.0 MG/DL (8.5-10.1) Microbiology Date/Time Source Procedure Growth Status 05/21/17 22:02 Blood Blood Culture - Preliminary NO GROWTH AFTER 48 HOURS Resulted 05/21/17 22:02 Blood Blood Culture - Preliminary NO GROWTH AFTER 48 HOURS Resulted 05/22/17 21:00 Sputum Gram Stain - Final Resulted 05/22/17 21:00 Sputum Sputum Culture Pending Resulted 05/21/17 22:12 Nasal Nares Influenza Types A,B Antigen (JETHRO) - Final Complete Objective HEAD AND NECK: No JVD. LUNGS: Clear. CARDIOVASCULAR: Regular S1 and S2 with no gallop. ABDOMEN: Status post G-tube. EXTREMITIES: No pitting edema. OCTAVIA OLEARY May 24, 2017 13:22
--- NOTE | 2017-05-24 14:16 | Diagnostic Imaging Report ---
Indication: Tube placement Comparison: 03/10/2016 Single view of the abdomen obtained Findings: There is contrast in the stomach. No extravasation of contrast identified. The tip of the catheter appears to be in the body of the stomach. IMPRESSION: Unremarkable gastrostomy injection
[2017-05-24 16:00] VITALS: BP 138/64
--- NOTE | 2017-05-24 17:55 | Nephrology Progress Note ---
Assessment/Plan Problem List: (1) Leucocytosis (2) CHF (congestive heart failure) (3) ARF (acute renal failure) Assessment: Improved (4) Dehydration (5) Diabetes (6) HTN (hypertension) (7) Elevated troponin level (8) HLD (hyperlipidemia) (9) Hyponatremia (10) Dementia (11) History of CVA (cerebrovascular accident) Plan Continue current treatment plan Monitor lytes, correct prn Renally dose meds, avoid nephrotoxins Monitor intake and output Continue G- tube AM labs Subjective ROS Limited/Unobtainable: Yes Subjective In bed, in no apparent distress. Objective Objective Last 24 Hour Vital Signs Date Time Temp Pulse Resp B/P (MAP) Pulse Ox O2 Delivery O2 Flow Rate FiO2 05/24/17 16:00 98.0 79 20 138/64 96 05/24/17 14:45 138/71 05/24/17 12:15 98.4 79 20 138/71 97 Nasal Cannula 2.0 05/24/17 08:10 97.6 88 12 158/72 97 05/24/17 07:25 92 Nasal Cannula 3.0 32 05/24/17 07:25 Nasal Cannula 3.0 32 05/24/17 04:00 97.7 85 21 146/73 95 Nasal Cannula 2.0 05/24/17 00:00 97.9 86 20 132/60 98 Nasal Cannula 05/23/17 22:18 145/70 05/23/17 20:23 94 Nasal Cannula 4.0 36 05/23/17 20:23 Nasal Cannula 4.0 36 05/23/17 20:00 97.3 86 20 145/70 97 Nasal Cannula Intake and Output 05/23/17 05/24/17 19:00 07:00 Intake Total 1285 ml 820 ml Output Total 300 ml 850 ml Balance 985 ml -30 ml Free Water 260 ml IV Total 695 ml 820 ml Tube Feeding 330 ml Output Urine Total 300 ml 850 ml # Voids 1 # Bowel Movements 5 1 Laboratory Tests 05/24/17 08:00: White Blood Count 6.2, Red Blood Count 4.32L, Hemoglobin 12.6L, Hematocrit 38.6L , Mean Corpuscular Volume 89, Mean Corpuscular Hemoglobin 29.3, Mean Corpuscular Hemoglobin Concent 32.7, Red Cell Distribution Width 13.3, Platelet Count 208, Mean Platelet Volume 6.7, Neutrophils (%) (Auto) 72.1, Lymphocytes (% ) (Auto) 17.8L, Monocytes (%) (Auto) 7.5, Eosinophils (%) (Auto) 1.7, Basophils (%) (Auto) 0.9, Sodium Level 142, Potassium Level 3.6, Chloride Level 104, Carbon Dioxide Level 28, Anion Gap 10, Blood Urea Nitrogen 27H, Creatinine 1.4H , Estimat Glomerular Filtration Rate , Glucose Level 104, Calcium Level 9.0 Height (Feet): 5 Height (Inches): 6.00 Weight (Pounds): 181 General Appearance: no apparent distress EENT: normal ENT inspection Neck: normal alignment Cardiovascular: normal rate Respiratory/Chest: no respiratory distress Abdomen: soft, other - PEG Genitourinary/Rectal: other - kong Extremities: non-tender Neurologic: responsive Lara Solorzano N.P. May 24, 2017 17:55
[2017-05-24 20:00] VITALS: BP 143/74
[2017-05-25] VITALS: BP 127/81
[2017-05-25 04:00] VITALS: BP 149/73
--- NOTE | 2017-05-25 05:15 | Consultation ---
DATE OF CONSULTATION: 05/23/2017 PSYCHOTHERAPY CONSULTATION PROGRESS NOTE TREATING ATTENDING PHYSICIAN: Remberto Joe D.O. HISTORY OF PRESENT ILLNESS: The patient is an 82-year-old male patient from [facility]. The patient was initially brought into the hospital for fever. The patient has been confused, irritable, and disorganized and for these reasons, he was referred for psychotherapeutic services. The patient has poor frustration tolerance. This clinician assessed the patient. The patient is confused and disorganized at this time, has no viable or logical plan for self-care. There is no indication of auditory or visual hallucinations. There is no indication of suicidal or homicidal thoughts of ideation for this patient. PAST MEDICAL HISTORY: Includes history of hypertension, encephalopathy. ALLERGIES: The patient has no known drug allergies. SUBSTANCE ABUSE HISTORY: There is no indication of alcohol use, illicit substance use, or smoking cigarettes. PSYCHIATRIC HISTORY: depression for this patient. SOCIAL HISTORY: The patient is an 82-year-old male patient from [facility], financially sustained through [employer]. MENTAL STATUS EXAMINATION: The patient is alert and oriented to person. Mood is depressed. Affect blunted. Thought process, disorganized. DIAGNOSIS: Rule out major depressive disorder, recurrent, mild with psychotic features. PLAN: This clinician assessed the patient, provided the patient with reality orientation. Assessed the patient's mental status. Continue with behavioral management. This clinician has reviewed the patient's chart and discussed the treatment with treatment team. Britni Heck PsyD. : Ricco JOB#: [id number] CC:
[2017-05-25] MEDS: HydrALAZINE 50mg tab GT SCH ×3 (05:35→22:23)
[2017-05-25] MEDS: Gabapentin 300 MG/6 ML Soln GT SCH ×3 (05:35→22:00)
[2017-05-25] MEDS: NovoLOG Insulin Flexpen SUBQ SCH ×4 (05:37→22:25)
[2017-05-25 08:15] VITALS: BP 153/71
--- NOTE | 2017-05-25 08:20 | General Progress Note ---
Assessment/Plan Problem List: (1) Malfunction of gastrostomy tube ICD Codes: K94.23 - Gastrostomy malfunction SNOMED: 375250599 (2) HTN (hypertension) ICD Codes: I10 - Essential (primary) hypertension SNOMED: 21207137 (3) Diabetes ICD Codes: E11.9 - Type 2 diabetes mellitus without complications SNOMED: 63107640 (4) History of CVA (cerebrovascular accident) ICD Codes: Z86.73 - Personal history of transient ischemic attack (TIA), and cerebral infarction without residual deficits SNOMED: 403894158 Assessment/Plan increase GTF to 55 cc as tolerated fu labs dc planning per primary team Subjective ROS Limited/Unobtainable: No Allergies: Coded Allergies: NO KNOWN ALLERGIES (Unverified Allergy, Unknown, 10/07/15) NO KNOWN DRUG ALLERGIES (Unverified Allergy, Unknown, 05/29/14) Objective Last 24 Hour Vital Signs Date Time Temp Pulse Resp B/P (MAP) Pulse Ox O2 Delivery O2 Flow Rate FiO2 05/25/17 05:35 149/73 05/25/17 04:00 97.5 92 20 149/73 94 05/25/17 00:00 96.8 89 20 127/81 97 Nasal Cannula 05/24/17 21:23 143/74 05/24/17 20:10 Nasal Cannula 3.0 32 05/24/17 20:10 95 Nasal Cannula 3.0 32 05/24/17 20:00 97.9 83 20 143/74 95 Nasal Cannula 05/24/17 16:00 98.0 79 20 138/64 96 05/24/17 14:45 138/71 05/24/17 12:15 98.4 79 20 138/71 97 Nasal Cannula 2.0 Intake and Output 05/24/17 05/25/17 19:00 07:00 Intake Total 930 ml 1345 ml Output Total 400 ml 500 ml Balance 530 ml 845 ml Free Water 60 ml 160 ml IV Total 750 ml 825 ml Tube Feeding 120 ml 360 ml Output Urine Total 400 ml 500 ml # Voids 2 Height (Feet): 5 Height (Inches): 6.00 Weight (Pounds): 189 General Appearance: no apparent distress EENT: normal ENT inspection Neck: supple Cardiovascular: normal rate Respiratory/Chest: decreased breath sounds Abdomen: normal bowel sounds, non tender, soft Extremities: non-tender VOSOGHI,ELTON May 25, 2017 08:20
--- NOTE | 2017-05-25 08:39 | Pulmonology Progress Note ---
Assessment/Plan Assessment/Plan ASSESSMENT possible sepsis acute bronchitis Elevated troponin HTN ARF, possible ATN Elevated BNP, possible CHF Atelectasis DM dysphagia, G tube malfunctioning GT, s/p replacement at the bedside Dehydration dementia CVA hx PLAN OF CARE [facility] floor Abx ID follows, sputum, influenza, blood cx negative CXR with left base atelectasis fup with CXR suction prn O2 HHN prn a/tussive prn cardio follows troponin levels low and flat, likely due to renal failure as per cardio ECHO with pEF 55-60% and RVSP of 13 BNP trending down DVT prophylaxis BP management with CCB and Hydralazine, optimize as needed IVF, monitor renal parameters, lytes, correct as needed, avoid nephrotoxic creat trending down BS management with SS of insulin PT/OT strict aspiration precautions, s/p GT replacement at the bedside by GI. GT feeding, tolerates dc plan as per PMD case discussed and evaluated by supervising physician Subjective Allergies: Coded Allergies: NO KNOWN DRUG ALLERGIES (Unverified Allergy, Unknown, 05/29/14) Subjective leuk resolved, afebrile creat trending down tolerates GT feeding after replacement 05/24 Objective Last 24 Hour Vital Signs Date Time Temp Pulse Resp B/P (MAP) Pulse Ox O2 Delivery O2 Flow Rate FiO2 05/25/17 05:35 149/73 05/25/17 04:00 97.5 92 20 149/73 94 05/25/17 00:00 96.8 89 20 127/81 97 Nasal Cannula 05/24/17 21:23 143/74 05/24/17 20:10 Nasal Cannula 3.0 32 05/24/17 20:10 95 Nasal Cannula 3.0 32 05/24/17 20:00 97.9 83 20 143/74 95 Nasal Cannula 05/24/17 16:00 98.0 79 20 138/64 96 05/24/17 14:45 138/71 05/24/17 12:15 98.4 79 20 138/71 97 Nasal Cannula 2.0 Intake and Output 05/24/17 05/25/17 19:00 07:00 Intake Total 930 ml 1345 ml Output Total 400 ml 500 ml Balance 530 ml 845 ml Free Water 60 ml 160 ml IV Total 750 ml 825 ml Tube Feeding 120 ml 360 ml Output Urine Total 400 ml 500 ml # Voids 2 Objective General Appearance: bedridden elderly male in NAD HEENT: normocephalic, atraumatic Respiratory/Chest: few isolated rhonchi Cardiovascular: normal rate, no JVD Abdomen: normal bowel sounds, soft, non tender, G tube Neurologic/Psychiatric: abnormal gait - bedridden Musculoskeletal: atrophy - BLE Microbiology Date/Time Source Procedure Growth Status 05/22/17 21:00 Sputum Gram Stain - Final Resulted 05/22/17 21:00 Sputum Sputum Culture Pending Resulted Laboratory Tests 05/25/17 08:14: White Blood Count [Pending], Red Blood Count [Pending], Hemoglobin [Pending], Hematocrit [Pending], Mean Corpuscular Volume [Pending], Mean Corpuscular Hemoglobin [Pending], Mean Corpuscular Hemoglobin Concent [Pending], Red Cell Distribution Width [Pending], Platelet Count [Pending], Mean Platelet Volume [ Pending], Neutrophils (%) (Auto) [Pending], Lymphocytes (%) (Auto) [Pending], Monocytes (%) (Auto) [Pending], Eosinophils (%) (Auto) [Pending], Basophils (%) (Auto) [Pending], Reticulocyte Count [Pending], Prothrombin Time [Pending], Prothromb Time International Ratio [Pending], Activated Partial Thromboplast Time [Pending], Sodium Level [Pending], Potassium Level [Pending], Chloride Level [Pending], Carbon Dioxide Level [Pending], Blood Urea Nitrogen [Pending], Creatinine [Pending], Estimat Glomerular Filtration Rate [Pending], Glucose Level [Pending], Calcium Level [Pending], Iron Level [Pending], Unsaturated Iron Binding [Pending], Ferritin [Pending], Vitamin B12 Level [Pending], Folate [Pending], Thyroid Stimulating Hormone (TSH) [Pending], Free Thyroxine [Pending] Current Medications Medications (Trade) Dose Ordered Sig/Dimas Route PRN Reason Start Time Stop Time Status Last Admin Dose Admin Acetaminophen (Tylenol) 650 mg Q4H PRN ORAL T>100.5 05/23/17 17:45 06/21/17 05:44 Al Hydroxide/Mg Hydroxide (Mylanta II) 30 ml Q6H PRN ORAL dyspepsia 05/23/17 17:45 06/21/17 05:44 Albuterol/ Ipratropium (Albuterol/ Ipratropium) 3 ml Q4H PRN HHN Shortness of Breath 05/23/17 17:45 05/27/17 05:44 Amlodipine Besylate (Norvasc) 10 mg DAILY GT 05/24/17 09:00 06/21/17 08:59 Gabapentin (Neurontin) 300 mg Q8HR GT 05/23/17 22:00 06/22/17 21:59 05/25/17 05:35 Heparin Sodium (Porcine) (Heparin 5000 units/ml) 5,000 units EVERY 12 HOURS SUBQ 05/23/17 21:00 06/21/17 08:59 05/24/17 21:25 Hydralazine HCl (Apresoline) 50 mg EVERY 8 HOURS GT 05/23/17 22:00 06/21/17 05:59 05/25/17 05:35 Insulin Aspart (NovoLOG) BEFORE MEALS AND HS SUBQ 05/23/17 21:00 06/21/17 16:29 05/25/17 05:37 Levofloxacin (Levaquin) 250 mg DAILY GT 05/24/17 13:00 05/31/17 12:59 05/24/17 14:45 Nitroglycerin (Ntg) 0.4 mg Q5M PRN SL Prn Chest Pain 05/23/17 17:15 06/21/17 05:44 Ondansetron HCl (Zofran) 4 mg Q6H PRN IVP Nausea & Vomiting 05/23/17 17:45 06/21/17 05:44 Polyethylene Glycol (Miralax) 17 gm DAILYPRN PRN ORAL Constipation 05/23/17 18:00 06/22/17 17:59 Promethazine HCl/ Codeine (Phenergan with Codeine) 5 ml Q4H PRN ORAL For Cough 05/23/17 17:45 06/21/17 05:44 Temazepam (Restoril) 15 mg HSPRN PRN ORAL Insomnia 05/23/17 21:00 05/30/17 20:59 Geovanna Brownlee NP ([facility]) May 25, 2017 08:39
--- NOTE | 2017-05-25 08:55 | General Progress Note ---
Assessment/Plan Problem List: (1) UTI (urinary tract infection) ICD Codes: N39.0 - Urinary tract infection, site not specified SNOMED: 11816386 (2) Fever ICD Codes: R50.9 - Fever, unspecified SNOMED: 509015382 (3) PNA (pneumonia) ICD Codes: J18.9 - Pneumonia, unspecified organism SNOMED: 321474572 (4) Sepsis ICD Codes: A41.9 - Sepsis SNOMED: 48661227 (5) HTN (hypertension) ICD Codes: I10 - Essential (primary) hypertension SNOMED: 05901822 (6) History of CVA (cerebrovascular accident) ICD Codes: Z86.73 - Personal history of transient ischemic attack (TIA), and cerebral infarction without residual deficits SNOMED: 682559619 (7) Elevated troponin level ICD Codes: R74.8 - Abnormal levels of other serum enzymes SNOMED: 792616840, 690367334, 319053295 Status: unchanged Assessment/Plan o2 pul tx abx ot pt diet cardio eval dc if cardio and id Subjective Constitutional: Reports: weakness Allergies: Coded Allergies: NO KNOWN ALLERGIES (Unverified Allergy, Unknown, 10/07/15) NO KNOWN DRUG ALLERGIES (Unverified Allergy, Unknown, 05/29/14) All Systems: reviewed and negative except above Subjective o2nc sleepy Objective Last 24 Hour Vital Signs Date Time Temp Pulse Resp B/P (MAP) Pulse Ox O2 Delivery O2 Flow Rate FiO2 05/25/17 08:15 98.1 87 19 153/71 Nasal Cannula 05/25/17 05:35 149/73 05/25/17 04:00 97.5 92 20 149/73 94 05/25/17 00:00 96.8 89 20 127/81 97 Nasal Cannula 05/24/17 21:23 143/74 05/24/17 20:10 Nasal Cannula 3.0 32 05/24/17 20:10 95 Nasal Cannula 3.0 32 05/24/17 20:00 97.9 83 20 143/74 95 Nasal Cannula 05/24/17 16:00 98.0 79 20 138/64 96 05/24/17 14:45 138/71 05/24/17 12:15 98.4 79 20 138/71 97 Nasal Cannula 2.0 Intake and Output 05/24/17 05/25/17 19:00 07:00 Intake Total 930 ml 1345 ml Output Total 400 ml 500 ml Balance 530 ml 845 ml Free Water 60 ml 160 ml IV Total 750 ml 825 ml Tube Feeding 120 ml 360 ml Output Urine Total 400 ml 500 ml # Voids 2 Laboratory Tests 05/25/17 08:14: White Blood Count [Pending], Red Blood Count [Pending], Hemoglobin [Pending], Hematocrit [Pending], Mean Corpuscular Volume [Pending], Mean Corpuscular Hemoglobin [Pending], Mean Corpuscular Hemoglobin Concent [Pending], Red Cell Distribution Width [Pending], Platelet Count [Pending], Mean Platelet Volume [ Pending], Neutrophils (%) (Auto) [Pending], Lymphocytes (%) (Auto) [Pending], Monocytes (%) (Auto) [Pending], Eosinophils (%) (Auto) [Pending], Basophils (%) (Auto) [Pending], Reticulocyte Count [Pending], Prothrombin Time [Pending], Prothromb Time International Ratio [Pending], Activated Partial Thromboplast Time [Pending], Sodium Level [Pending], Potassium Level [Pending], Chloride Level [Pending], Carbon Dioxide Level [Pending], Blood Urea Nitrogen [Pending], Creatinine [Pending], Estimat Glomerular Filtration Rate [Pending], Glucose Level [Pending], Calcium Level [Pending], Iron Level [Pending], Unsaturated Iron Binding [Pending], Ferritin [Pending], Vitamin B12 Level [Pending], Folate [Pending], Thyroid Stimulating Hormone (TSH) [Pending], Free Thyroxine [Pending] Height (Feet): 5 Height (Inches): 6.00 Weight (Pounds): 189 General Appearance: lethargic EENT: normal ENT inspection Neck: normal alignment Cardiovascular: normal peripheral pulses, normal rate, regular rhythm Respiratory/Chest: chest wall non-tender, lungs clear, normal breath sounds Abdomen: normal bowel sounds, non tender, soft Extremities: normal inspection Edema: no edema noted Arm (L), no edema noted Arm (R), no edema noted Leg (L), no edema noted Leg (R), no edema noted Pedal (L), no edema noted Pedal (R), no edema noted Generalized Neurologic: motor weakness Skin: normal pigmentation, warm/dry SOHEILA BEY May 25, 2017 08:55
[2017-05-25 09:03] LABS: BASOPHILS % (AUTO) 0.8 % (0.0-2.0); EOSINOPHILS % (AUTO) 0.8 % (0.0-3.0); HEMATOCRIT 34.2 % (42.0-52.0); HEMOGLOBIN 11.3 G/DL (14.2-18.0); LYMPHOCYTES % (AUTO) 14.7 % (20.0-45.0); MEAN CORPUSCULAR VOLUME 89 FL (80-99); MONOCYTES % (AUTO) 7.8 % (1.0-10.0); NEUTROPHILS % (AUTO) 75.8 % (45.0-75.0); PLATELET COUNT 235 K/UL (150-450); RED BLOOD COUNT 3.87 M/UL (4.70-6.10); RED CELL DISTRIBUTION WIDTH 12.8 % (11.6-14.8); WHITE BLOOD COUNT 7.2 K/UL (4.8-10.8)
[2017-05-25] MEDS: Heparin 5000 units/ml inj SUBQ SCH ×2 (09:19→22:24)
[2017-05-25 10:00] LABS: ANION GAP 6 mmol/L (5-15); BLOOD UREA NITROGEN 23 mg/dL (7-18); CARBON DIOXIDE 29 MMOL/L (21-32); CHLORIDE 109 MMOL/L (98-107); CREATININE 1.4 MG/DL (0.55-1.30); FERRITIN 99 NG/ML (8-388); SODIUM 144 MMOL/L (136-145)
[2017-05-25 10:44] LABS: % IRON SATURATION 24 % (15-50); IRON 44 ug/dL (50-175); TOTAL IRON BINDING CAPACITY 187 ug/dL (250-450)
[2017-05-25 12:00] VITALS: BP 143/68
--- NOTE | 2017-05-25 15:12 | Cardiac Electrophysiology PN ---
Assessment/Plan Assessment/Plan 1. Elevated troponins. Levels flat.No chest pain. Due to renal failure. The creatinine is 1.7. EKG no acute ischemic changes. Echo EF 55% 2. Hypertension. Continue amlodipine 10 mg daily and hydralazine 50 q 8 hr. 3. Elevated BNP, likely congestive heart failure due to diastolic dysfunction. EF55% 5. Dementia. 6. Dysphagia, status post percutaneous endoscopic gastrostomy tube placement. VENESSA RN OK to DC Subjective Subjective Comfortable On abx. Off tele. EF 55%. No events overnight. Objective Last 24 Hour Vital Signs Date Time Temp Pulse Resp B/P (MAP) Pulse Ox O2 Delivery O2 Flow Rate FiO2 05/25/17 14:04 140/63 05/25/17 12:00 98.8 85 19 143/68 85 Nasal Cannula 05/25/17 09:16 87 153/71 05/25/17 08:15 98.1 87 19 153/71 Nasal Cannula 05/25/17 07:17 95 Nasal Cannula 2.0 28 05/25/17 07:17 Nasal Cannula 2.0 28 05/25/17 05:35 149/73 05/25/17 04:00 97.5 92 20 149/73 94 05/25/17 00:00 96.8 89 20 127/81 97 Nasal Cannula 05/24/17 21:23 143/74 05/24/17 20:10 Nasal Cannula 3.0 32 05/24/17 20:10 95 Nasal Cannula 3.0 32 05/24/17 20:00 97.9 83 20 143/74 95 Nasal Cannula 05/24/17 16:00 98.0 79 20 138/64 96 Intake and Output 05/24/17 05/25/17 19:00 07:00 Intake Total 930 ml 1345 ml Output Total 400 ml 500 ml Balance 530 ml 845 ml Free Water 60 ml 160 ml IV Total 750 ml 825 ml Tube Feeding 120 ml 360 ml Output Urine Total 400 ml 500 ml # Voids 2 Laboratory Tests Test 05/25/17 08:14 White Blood Count 7.2 K/UL (4.8-10.8) Red Blood Count 3.87 M/UL (4.70-6.10) L Hemoglobin 11.3 G/DL (14.2-18.0) L Hematocrit 34.2 % (42.0-52.0) L Mean Corpuscular Volume 89 FL (80-99) Mean Corpuscular Hemoglobin 29.2 PG (27.0-31.0) Mean Corpuscular Hemoglobin Concent 33.0 G/DL (32.0-36.0) Red Cell Distribution Width 12.8 % (11.6-14.8) Platelet Count 235 K/UL (150-450) Mean Platelet Volume 6.6 FL (6.5-10.1) Neutrophils (%) (Auto) 75.8 % (45.0-75.0) H Lymphocytes (%) (Auto) 14.7 % (20.0-45.0) L Monocytes (%) (Auto) 7.8 % (1.0-10.0) Eosinophils (%) (Auto) 0.8 % (0.0-3.0) Basophils (%) (Auto) 0.8 % (0.0-2.0) Reticulocyte Count 1.0 % (0.0-2.0) Prothrombin Time 10.4 SEC (9.30-11.50) Prothromb Time International Ratio 1.0 (0.9-1.1) Activated Partial Thromboplast Time 29 SEC (23-33) Sodium Level 144 MMOL/L (136-145) Potassium Level 4.0 MMOL/L (3.5-5.1) Chloride Level 109 MMOL/L (98-107) H Carbon Dioxide Level 29 MMOL/L (21-32) Anion Gap 6 mmol/L (5-15) Blood Urea Nitrogen 23 mg/dL (7-18) H Creatinine 1.4 MG/DL (0.55-1.30) H Estimat Glomerular Filtration Rate mL/min (>60) Glucose Level 138 MG/DL (74-106) H Calcium Level 9.0 MG/DL (8.5-10.1) Iron Level 44 ug/dL (50-175) L Total Iron Binding Capacity 187 ug/dL (250-450) L Percent Iron Saturation 24 % (15-50) Unsaturated Iron Binding 143 ug/dL (112-346) Ferritin 99 NG/ML (8-388) Vitamin B12 Level 812 PG/ML (193-986) Folate 68.9 NG/ML (8.6-58.9) H Thyroid Stimulating Hormone (TSH) 1.196 uiU/mL (0.358-3.740) Free Thyroxine 1.20 NG/DL (0.76-1.46) Microbiology Date/Time Source Procedure Growth Status 05/22/17 21:00 Sputum Gram Stain - Final Complete 05/22/17 21:00 Sputum Sputum Culture - Final NORMAL UPPER RESPIRATORY [place] AT 50 ... Complete Objective HEAD AND NECK: No JVD. LUNGS: Clear. CARDIOVASCULAR: Regular S1 and S2 with no gallop. ABDOMEN: Status post G-tube. EXTREMITIES: No pitting edema. OCTAVIA OLEARY May 25, 2017 15:11
[2017-05-25 16:02] VITALS: BP 138/59
[2017-05-25] MEDS ORDERED: Tubing IV Secondary IV ONE (16:29)
[2017-05-25] MEDS ORDERED: NS 500ML ONE (16:29)
[2017-05-25 20:00] VITALS: BP 155/76
--- NOTE | 2017-05-25 22:47 | Nephrology Progress Note ---
Assessment/Plan Problem List: (1) ARF (acute renal failure) (2) HTN (hypertension) (3) Elevated troponin level (4) Hyponatremia (5) UTI (urinary tract infection) (6) PNA (pneumonia) (7) Malfunction of gastrostomy tube (8) HLD (hyperlipidemia) (9) Fever (10) Sepsis Plan Cr stable at 1.4. Monitor lytes. D/c planning. Subjective Subjective no acute events. Objective Objective Last 24 Hour Vital Signs Date Time Temp Pulse Resp B/P (MAP) Pulse Ox O2 Delivery O2 Flow Rate FiO2 05/25/17 22:23 155/76 05/25/17 20:00 98.0 78 21 155/76 95 05/25/17 19:34 Nasal Cannula 4.0 36 05/25/17 19:33 95 Nasal Cannula 4.0 36 05/25/17 16:02 97.0 85 19 138/59 Nasal Cannula 4.0 05/25/17 14:04 140/63 05/25/17 12:00 98.8 85 19 143/68 85 Nasal Cannula 05/25/17 09:16 87 153/71 05/25/17 08:15 98.1 87 19 153/71 Nasal Cannula 05/25/17 07:17 95 Nasal Cannula 2.0 28 05/25/17 07:17 Nasal Cannula 2.0 28 05/25/17 05:35 149/73 05/25/17 04:00 97.5 92 20 149/73 94 05/25/17 00:00 96.8 89 20 127/81 97 Nasal Cannula Intake and Output 05/24/17 05/25/17 19:00 07:00 Intake Total 930 ml 1345 ml Output Total 400 ml 500 ml Balance 530 ml 845 ml Free Water 60 ml 160 ml IV Total 750 ml 825 ml Tube Feeding 120 ml 360 ml Output Urine Total 400 ml 500 ml # Voids 2 Laboratory Tests 05/25/17 08:14: White Blood Count 7.2, Red Blood Count 3.87L, Hemoglobin 11.3L, Hematocrit 34.2L , Mean Corpuscular Volume 89, Mean Corpuscular Hemoglobin 29.2, Mean Corpuscular Hemoglobin Concent 33.0, Red Cell Distribution Width 12.8, Platelet Count 235, Mean Platelet Volume 6.6, Neutrophils (%) (Auto) 75.8H, Lymphocytes ( %) (Auto) 14.7L, Monocytes (%) (Auto) 7.8, Eosinophils (%) (Auto) 0.8, Basophils (%) (Auto) 0.8, Reticulocyte Count 1.0, Prothrombin Time 10.4, Prothromb Time International Ratio 1.0, Activated Partial Thromboplast Time 29, Sodium Level 144, Potassium Level 4.0, Chloride Level 109H, Carbon Dioxide Level 29, Anion Gap 6, Blood Urea Nitrogen 23H, Creatinine 1.4H, Estimat Glomerular Filtration Rate , Glucose Level 138H, Calcium Level 9.0, Iron Level 44L, Total Iron Binding Capacity 187L, Percent Iron Saturation 24, Unsaturated Iron Binding 143, Ferritin 99, Vitamin B12 Level 812, Folate 68.9H, Thyroid Stimulating Hormone (TSH) 1.196, Free Thyroxine 1.20 Height (Feet): 5 Height (Inches): 6.00 Weight (Pounds): 189 General Appearance: no apparent distress Cardiovascular: normal rate, regular rhythm Respiratory/Chest: lungs clear Abdomen: non tender, soft Extremities: trace edema Neurologic: alert RENETTA RIOS May 25, 2017 22:47
[2017-05-26] VITALS: BP 137/61
[2017-05-26 04:00] VITALS: BP 154/81
--- NOTE | 2017-05-26 05:28 | General Progress Note ---
Assessment/Plan Problem List: (1) UTI (urinary tract infection) ICD Codes: N39.0 - Urinary tract infection, site not specified SNOMED: 22151071 (2) Fever ICD Codes: R50.9 - Fever, unspecified SNOMED: 032667623 (3) PNA (pneumonia) ICD Codes: J18.9 - Pneumonia, unspecified organism SNOMED: 993042808 (4) Sepsis ICD Codes: A41.9 - Sepsis SNOMED: 52882871 (5) HTN (hypertension) ICD Codes: I10 - Essential (primary) hypertension SNOMED: 29401777 (6) History of CVA (cerebrovascular accident) ICD Codes: Z86.73 - Personal history of transient ischemic attack (TIA), and cerebral infarction without residual deficits SNOMED: 274281141 (7) Elevated troponin level ICD Codes: R74.8 - Abnormal levels of other serum enzymes SNOMED: 531024941, 961554581, 286316901 Status: unchanged Assessment/Plan o2 pul tx abx ot pt diet cardio eval dc if cardio and id Subjective Constitutional: Reports: weakness Allergies: Coded Allergies: NO KNOWN DRUG ALLERGIES (Unverified Allergy, Unknown, 05/29/14) All Systems: reviewed and negative except above Subjective o2nc sleepy Objective Last 24 Hour Vital Signs Date Time Temp Pulse Resp B/P (MAP) Pulse Ox O2 Delivery O2 Flow Rate FiO2 05/26/17 04:00 Nasal Cannula 4.0 05/26/17 00:00 98.6 74 20 137/61 91 05/26/17 00:00 Nasal Cannula 4.0 05/25/17 22:23 155/76 05/25/17 20:00 98.0 78 21 155/76 95 05/25/17 20:00 Nasal Cannula 4.0 05/25/17 19:34 Nasal Cannula 4.0 36 05/25/17 19:33 95 Nasal Cannula 4.0 36 05/25/17 16:02 97.0 85 19 138/59 Nasal Cannula 4.0 05/25/17 14:04 140/63 05/25/17 12:00 98.8 85 19 143/68 85 Nasal Cannula 05/25/17 09:16 87 153/71 05/25/17 08:15 98.1 87 19 153/71 Nasal Cannula 05/25/17 07:17 95 Nasal Cannula 2.0 28 05/25/17 07:17 Nasal Cannula 2.0 28 05/25/17 05:35 149/73 Intake and Output 05/25/17 05/26/17 19:00 07:00 Intake Total 685 ml Output Total 650 ml Balance 35 ml Free Water 180 ml Tube Feeding 505 ml Output Urine Total 650 ml # Bowel Movements 2 Laboratory Tests 05/25/17 08:14: White Blood Count 7.2, Red Blood Count 3.87L, Hemoglobin 11.3L, Hematocrit 34.2L , Mean Corpuscular Volume 89, Mean Corpuscular Hemoglobin 29.2, Mean Corpuscular Hemoglobin Concent 33.0, Red Cell Distribution Width 12.8, Platelet Count 235, Mean Platelet Volume 6.6, Neutrophils (%) (Auto) 75.8H, Lymphocytes ( %) (Auto) 14.7L, Monocytes (%) (Auto) 7.8, Eosinophils (%) (Auto) 0.8, Basophils (%) (Auto) 0.8, Reticulocyte Count 1.0, Prothrombin Time 10.4, Prothromb Time International Ratio 1.0, Activated Partial Thromboplast Time 29, Sodium Level 144, Potassium Level 4.0, Chloride Level 109H, Carbon Dioxide Level 29, Anion Gap 6, Blood Urea Nitrogen 23H, Creatinine 1.4H, Estimat Glomerular Filtration Rate , Glucose Level 138H, Calcium Level 9.0, Iron Level 44L, Total Iron Binding Capacity 187L, Percent Iron Saturation 24, Unsaturated Iron Binding 143, Ferritin 99, Vitamin B12 Level 812, Folate 68.9H, Thyroid Stimulating Hormone (TSH) 1.196, Free Thyroxine 1.20 Height (Feet): 5 Height (Inches): 6.00 Weight (Pounds): 189 General Appearance: lethargic EENT: normal ENT inspection Neck: normal alignment Cardiovascular: normal peripheral pulses, normal rate, regular rhythm Respiratory/Chest: chest wall non-tender, lungs clear, normal breath sounds Abdomen: normal bowel sounds, non tender, soft Extremities: normal inspection Edema: no edema noted Arm (L), no edema noted Arm (R), no edema noted Leg (L), no edema noted Leg (R), no edema noted Pedal (L), no edema noted Pedal (R), no edema noted Generalized Neurologic: abnormal 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
[2017-05-26] MEDS: HydrALAZINE 50mg tab GT SCH (05:57)
[2017-05-26] MEDS: Gabapentin 300 MG/6 ML Soln GT SCH (05:58)
[2017-05-26] MEDS: NovoLOG Insulin Flexpen SUBQ SCH ×2 (05:59→12:19)
--- NOTE | 2017-05-26 07:22 | General Progress Note ---
Assessment/Plan Problem List: (1) Malfunction of gastrostomy tube ICD Codes: K94.23 - Gastrostomy malfunction SNOMED: 675508477 (2) HTN (hypertension) ICD Codes: I10 - Essential (primary) hypertension SNOMED: 09697371 (3) Diabetes ICD Codes: E11.9 - Type 2 diabetes mellitus without complications SNOMED: 45076970 (4) History of CVA (cerebrovascular accident) ICD Codes: Z86.73 - Personal history of transient ischemic attack (TIA), and cerebral infarction without residual deficits SNOMED: 992637086 Assessment/Plan GTF to 55 cc fu labs dc planning per primary team Subjective ROS Limited/Unobtainable: No Allergies: Coded Allergies: NO KNOWN DRUG ALLERGIES (Unverified Allergy, Unknown, 05/29/14) Objective Last 24 Hour Vital Signs Date Time Temp Pulse Resp B/P (MAP) Pulse Ox O2 Delivery O2 Flow Rate FiO2 05/26/17 05:57 137/61 05/26/17 04:00 Nasal Cannula 4.0 05/26/17 00:00 98.6 74 20 137/61 91 05/26/17 00:00 Nasal Cannula 4.0 05/25/17 22:23 155/76 05/25/17 20:00 98.0 78 21 155/76 95 05/25/17 20:00 Nasal Cannula 4.0 05/25/17 19:34 Nasal Cannula 4.0 36 05/25/17 19:33 95 Nasal Cannula 4.0 36 05/25/17 16:02 97.0 85 19 138/59 Nasal Cannula 4.0 05/25/17 14:04 140/63 05/25/17 12:00 98.8 85 19 143/68 85 Nasal Cannula 05/25/17 09:16 87 153/71 05/25/17 08:15 98.1 87 19 153/71 Nasal Cannula Intake and Output 05/25/17 05/26/17 19:00 07:00 Intake Total 685 ml Output Total 650 ml 450 ml Balance 35 ml -450 ml Free Water 180 ml Tube Feeding 505 ml Output Urine Total 650 ml 450 ml # Voids 3 # Bowel Movements 2 2 Laboratory Tests 05/25/17 08:14: White Blood Count 7.2, Red Blood Count 3.87L, Hemoglobin 11.3L, Hematocrit 34.2L , Mean Corpuscular Volume 89, Mean Corpuscular Hemoglobin 29.2, Mean Corpuscular Hemoglobin Concent 33.0, Red Cell Distribution Width 12.8, Platelet Count 235, Mean Platelet Volume 6.6, Neutrophils (%) (Auto) 75.8H, Lymphocytes ( %) (Auto) 14.7L, Monocytes (%) (Auto) 7.8, Eosinophils (%) (Auto) 0.8, Basophils (%) (Auto) 0.8, Reticulocyte Count 1.0, Prothrombin Time 10.4, Prothromb Time International Ratio 1.0, Activated Partial Thromboplast Time 29, Sodium Level 144, Potassium Level 4.0, Chloride Level 109H, Carbon Dioxide Level 29, Anion Gap 6, Blood Urea Nitrogen 23H, Creatinine 1.4H, Estimat Glomerular Filtration Rate , Glucose Level 138H, Calcium Level 9.0, Iron Level 44L, Total Iron Binding Capacity 187L, Percent Iron Saturation 24, Unsaturated Iron Binding 143, Ferritin 99, Vitamin B12 Level 812, Folate 68.9H, Thyroid Stimulating Hormone (TSH) 1.196, Free Thyroxine 1.20 Height (Feet): 5 Height (Inches): 6.00 Weight (Pounds): 189 General Appearance: no apparent distress EENT: normal ENT inspection Neck: supple Cardiovascular: normal rate Respiratory/Chest: decreased breath sounds Abdomen: normal bowel sounds, non tender, soft Extremities: non-tender ELTON NOBLES May 26, 2017 07:22
[2017-05-26 08:15] VITALS: BP 157/79
[2017-05-26 08:26] LABS: EOSINOPHILS % (AUTO) 0.8 % (0.0-3.0); HEMATOCRIT 36.9 % (42.0-52.0); HEMOGLOBIN 12.1 G/DL (14.2-18.0); LYMPHOCYTES % (AUTO) 18.3 % (20.0-45.0); MEAN CORPUSCULAR VOLUME 89 FL (80-99); MONOCYTES % (AUTO) 7.4 % (1.0-10.0); NEUTROPHILS % (AUTO) 72.5 % (45.0-75.0); PLATELET COUNT 246 K/UL (150-450); RED BLOOD COUNT 4.14 M/UL (4.70-6.10); WHITE BLOOD COUNT 6.8 K/UL (4.8-10.8)
[2017-05-26 08:41] LABS: ANION GAP 2 mmol/L (5-15); BLOOD UREA NITROGEN 23 mg/dL (7-18); CALCIUM 9.2 MG/DL (8.5-10.1); CARBON DIOXIDE 34 MMOL/L (21-32); CHLORIDE 108 MMOL/L (98-107); CREATININE 1.4 MG/DL (0.55-1.30); POTASSIUM 3.9 MMOL/L (3.5-5.1); SODIUM 144 MMOL/L (136-145)
[2017-05-26] MEDS: Heparin 5000 units/ml inj SUBQ SCH (08:51)
[2017-05-26 12:15] VITALS: BP 142/66
--- NOTE | 2017-05-26 12:46 | Infectious Diseases Prog Note ---
Assessment/Plan Assessment/Plan A; Sepsis improving Bronchitis, atelectasis Acute renal failure DM Elevated troponin Dementia P; Continue Levaquin X 1 day agree with discharge to SNF Subjective ROS Limited/Unobtainable: Yes Allergies: Coded Allergies: NO KNOWN DRUG ALLERGIES (Unverified Allergy, Unknown, 05/29/14) Objective Vital Signs Last 24 Hour Vital Signs Date Time Temp Pulse Resp B/P (MAP) Pulse Ox O2 Delivery O2 Flow Rate FiO2 05/26/17 12:15 98.7 87 18 142/66 97 Nasal Cannula 2.0 05/26/17 08:51 85 157/79 05/26/17 08:15 97.6 85 20 157/79 99 Nasal Cannula 2.0 05/26/17 07:35 93 Nasal Cannula 4.0 36 05/26/17 07:35 Nasal Cannula 4.0 36 05/26/17 05:57 137/61 05/26/17 04:00 Nasal Cannula 4.0 05/26/17 00:00 98.6 74 20 137/61 91 05/26/17 00:00 Nasal Cannula 4.0 05/25/17 22:23 155/76 05/25/17 20:00 98.0 78 21 155/76 95 05/25/17 20:00 Nasal Cannula 4.0 05/25/17 19:34 Nasal Cannula 4.0 36 05/25/17 19:33 95 Nasal Cannula 4.0 36 05/25/17 16:02 97.0 85 19 138/59 Nasal Cannula 4.0 05/25/17 14:04 140/63 Height (Feet): 5 Height (Inches): 6.00 Weight (Pounds): 189 General Appearance: no acute distress HEENT: mucous membranes moist Respiratory/Chest: lungs clear Cardiovascular: normal rate Abdomen: soft, non tender, other - GT feeding Extremities: no edema Neurologic/Psychiatric: alert, aphasia Laboratory Tests Test 05/26/17 06:15 White Blood Count 6.8 K/UL (4.8-10.8) Red Blood Count 4.14 M/UL (4.70-6.10) L Hemoglobin 12.1 G/DL (14.2-18.0) L Hematocrit 36.9 % (42.0-52.0) L Mean Corpuscular Volume 89 FL (80-99) Mean Corpuscular Hemoglobin 29.3 PG (27.0-31.0) Mean Corpuscular Hemoglobin Concent 32.8 G/DL (32.0-36.0) Red Cell Distribution Width 13.0 % (11.6-14.8) Platelet Count 246 K/UL (150-450) Mean Platelet Volume 6.3 FL (6.5-10.1) L Neutrophils (%) (Auto) 72.5 % (45.0-75.0) Lymphocytes (%) (Auto) 18.3 % (20.0-45.0) L Monocytes (%) (Auto) 7.4 % (1.0-10.0) Eosinophils (%) (Auto) 0.8 % (0.0-3.0) Basophils (%) (Auto) 1.0 % (0.0-2.0) Sodium Level 144 MMOL/L (136-145) Potassium Level 3.9 MMOL/L (3.5-5.1) Chloride Level 108 MMOL/L (98-107) H Carbon Dioxide Level 34 MMOL/L (21-32) H Anion Gap 2 mmol/L (5-15) L Blood Urea Nitrogen 23 mg/dL (7-18) H Creatinine 1.4 MG/DL (0.55-1.30) H Estimat Glomerular Filtration Rate mL/min (>60) Glucose Level 143 MG/DL (74-106) H Calcium Level 9.2 MG/DL (8.5-10.1) Current Medications Medications (Trade) Dose Ordered Sig/Dimas Route PRN Reason Start Time Stop Time Status Last Admin Dose Admin Acetaminophen (Tylenol) 650 mg Q4H PRN ORAL T>100.5 05/23/17 17:45 06/21/17 05:44 Al Hydroxide/Mg Hydroxide (Mylanta II) 30 ml Q6H PRN ORAL dyspepsia 05/23/17 17:45 06/21/17 05:44 Albuterol/ Ipratropium (Albuterol/ Ipratropium) 3 ml Q4H PRN HHN Shortness of Breath 05/23/17 17:45 05/27/17 05:44 Amlodipine Besylate (Norvasc) 10 mg DAILY GT 05/24/17 09:00 06/21/17 08:59 05/26/17 08:51 Gabapentin (Neurontin) 300 mg Q8HR GT 05/23/17 22:00 06/22/17 21:59 05/25/17 14:03 Heparin Sodium (Porcine) (Heparin 5000 units/ml) 5,000 units EVERY 12 HOURS SUBQ 05/23/17 21:00 06/21/17 08:59 05/26/17 08:51 Hydralazine HCl (Apresoline) 50 mg EVERY 8 HOURS GT 05/23/17 22:00 06/21/17 05:59 05/26/17 05:57 Insulin Aspart (NovoLOG) BEFORE MEALS AND HS SUBQ 05/23/17 21:00 06/21/17 16:29 05/26/17 12:19 Levofloxacin (Levaquin) 250 mg DAILY GT 05/24/17 13:00 05/31/17 12:59 05/26/17 08:51 Nitroglycerin (Ntg) 0.4 mg Q5M PRN SL Prn Chest Pain 05/23/17 17:15 06/21/17 05:44 Ondansetron HCl (Zofran) 4 mg Q6H PRN IVP Nausea & Vomiting 05/23/17 17:45 06/21/17 05:44 Polyethylene Glycol (Miralax) 17 gm DAILYPRN PRN ORAL Constipation 05/23/17 18:00 06/22/17 17:59 Promethazine HCl/ Codeine (Phenergan with Codeine) 5 ml Q4H PRN ORAL For Cough 05/23/17 17:45 06/21/17 05:44 Temazepam (Restoril) 15 mg HSPRN PRN ORAL Insomnia 05/23/17 21:00 05/30/17 20:59 MALCOLM LIN May 26, 2017 12:46
[2017-05-26] MEDS ORDERED: NOVOLOG100 UNITS1 SUBQ (12:55)
[2017-05-26] MEDS ORDERED: APRESOLINE50 MG GT (12:55)
[2017-05-26] MEDS ORDERED: LEVAQUIN250 M1 GT (12:55)
--- NOTE | 2017-05-26 12:57 | Pulmonology Progress Note ---
Assessment/Plan Assessment/Plan ASSESSMENT possible sepsis acute bronchitis Elevated troponin HTN ARF on CRI, possible ATN Elevated BNP, possible CHF Atelectasis DM dysphagia, G tube malfunctioning GT, s/p replacement at the bedside Dehydration dementia CVA hx PLAN OF CARE MS floor Abx ID follows, sputum, influenza, blood cx negative CXR with left base atelectasis fup with CXR suction prn O2 HHN prn a/tussive prn cardio follows troponin levels low and flat, likely due to renal failure as per cardio ECHO with pEF 55-60% and RVSP of 13 BNP trending down DVT prophylaxis BP management with CCB and Hydralazine, optimize as needed IVF, monitor renal parameters, lytes, correct as needed, avoid nephrotoxic creat trending down BS management with SS of insulin PT/OT strict aspiration precautions, s/p GT replacement at the bedside by GI. GT feeding, tolerates dc today stable resp status x 1 more day of abx as per ID case discussed and evaluated by supervising physician Subjective Allergies: Coded Allergies: NO KNOWN DRUG ALLERGIES (Unverified Allergy, Unknown, 05/29/14) Subjective leuk resolved, afebrile creat trending down tolerates GT feeding after replacement 05/24 awaiting for discharge Objective Last 24 Hour Vital Signs Date Time Temp Pulse Resp B/P (MAP) Pulse Ox O2 Delivery O2 Flow Rate FiO2 05/26/17 12:15 98.7 87 18 142/66 97 Nasal Cannula 2.0 05/26/17 08:51 85 157/79 05/26/17 08:15 97.6 85 20 157/79 99 Nasal Cannula 2.0 05/26/17 07:35 93 Nasal Cannula 4.0 36 05/26/17 07:35 Nasal Cannula 4.0 36 05/26/17 05:57 137/61 05/26/17 04:00 Nasal Cannula 4.0 05/26/17 00:00 98.6 74 20 137/61 91 05/26/17 00:00 Nasal Cannula 4.0 05/25/17 22:23 155/76 05/25/17 20:00 98.0 78 21 155/76 95 05/25/17 20:00 Nasal Cannula 4.0 05/25/17 19:34 Nasal Cannula 4.0 36 05/25/17 19:33 95 Nasal Cannula 4.0 36 05/25/17 16:02 97.0 85 19 138/59 Nasal Cannula 4.0 05/25/17 14:04 140/63 Intake and Output 05/25/17 05/26/17 19:00 07:00 Intake Total 685 ml 780 ml Output Total 650 ml 450 ml Balance 35 ml 330 ml Free Water 180 ml 120 ml Tube Feeding 505 ml 660 ml Output Urine Total 650 ml 450 ml # Voids 3 # Bowel Movements 2 2 Objective General Appearance: bedridden elderly male in NAD HEENT: normocephalic, atraumatic Respiratory/Chest: few isolated rhonchi Cardiovascular: normal rate, no JVD Abdomen: normal bowel sounds, soft, non tender, G tube Neurologic/Psychiatric: abnormal gait - bedridden Musculoskeletal: atrophy - BLE Laboratory Tests 05/26/17 06:15: White Blood Count 6.8, Red Blood Count 4.14L, Hemoglobin 12.1L, Hematocrit 36.9L , Mean Corpuscular Volume 89, Mean Corpuscular Hemoglobin 29.3, Mean Corpuscular Hemoglobin Concent 32.8, Red Cell Distribution Width 13.0, Platelet Count 246, Mean Platelet Volume 6.3L, Neutrophils (%) (Auto) 72.5, Lymphocytes ( %) (Auto) 18.3L, Monocytes (%) (Auto) 7.4, Eosinophils (%) (Auto) 0.8, Basophils (%) (Auto) 1.0, Sodium Level 144, Potassium Level 3.9, Chloride Level 108H, Carbon Dioxide Level 34H, Anion Gap 2L, Blood Urea Nitrogen 23H, Creatinine 1.4H, Estimat Glomerular Filtration Rate , Glucose Level 143H, Calcium Level 9.2 Current Medications Medications (Trade) Dose Ordered Sig/Dimas Route PRN Reason Start Time Stop Time Status Last Admin Dose Admin Acetaminophen (Tylenol) 650 mg Q4H PRN ORAL T>100.5 05/23/17 17:45 06/21/17 05:44 Al Hydroxide/Mg Hydroxide (Mylanta II) 30 ml Q6H PRN ORAL dyspepsia 05/23/17 17:45 06/21/17 05:44 Albuterol/ Ipratropium (Albuterol/ Ipratropium) 3 ml Q4H PRN HHN Shortness of Breath 05/23/17 17:45 05/27/17 05:44 Amlodipine Besylate (Norvasc) 10 mg DAILY GT 05/24/17 09:00 06/21/17 08:59 05/26/17 08:51 Gabapentin (Neurontin) 300 mg Q8HR GT 05/23/17 22:00 06/22/17 21:59 05/25/17 14:03 Heparin Sodium (Porcine) (Heparin 5000 units/ml) 5,000 units EVERY 12 HOURS SUBQ 05/23/17 21:00 06/21/17 08:59 05/26/17 08:51 Hydralazine HCl (Apresoline) 50 mg EVERY 8 HOURS GT 05/23/17 22:00 06/21/17 05:59 05/26/17 05:57 Insulin Aspart (NovoLOG) BEFORE MEALS AND HS SUBQ 05/23/17 21:00 06/21/17 16:29 05/26/17 12:19 Levofloxacin (Levaquin) 250 mg DAILY GT 05/24/17 13:00 05/31/17 12:59 05/26/17 08:51 Nitroglycerin (Ntg) 0.4 mg Q5M PRN SL Prn Chest Pain 05/23/17 17:15 06/21/17 05:44 Ondansetron HCl (Zofran) 4 mg Q6H PRN IVP Nausea & Vomiting 05/23/17 17:45 06/21/17 05:44 Polyethylene Glycol (Miralax) 17 gm DAILYPRN PRN ORAL Constipation 05/23/17 18:00 06/22/17 17:59 Promethazine HCl/ Codeine (Phenergan with Codeine) 5 ml Q4H PRN ORAL For Cough 05/23/17 17:45 06/21/17 05:44 Temazepam (Restoril) 15 mg HSPRN PRN ORAL Insomnia 05/23/17 21:00 05/30/17 20:59 Kem ([facility])Geovanna NP May 26, 2017 12:57
[2017-05-26] MEDS ORDERED: D5NS 1000ml IV ONE (13:46)
--- NOTE | 2017-05-29 10:47 | Discharge Summary ---
Discharge Summary Hospital Course Date of Admission May 21, 2017 at 23:11 Date of Discharge May 26, 2017 at 13:47 Admitting Diagnosis fever HPI Woody Mojica is a 82 year old male who was admitted on May 21, 2017 at 23:11 for FEVER Hospital Course dc summary #[id number] Discharge Medications New Medications: Hydralazine HCl (Hydralazine HCl) 50 Mg Tablet 50 MG GT EVERY 8 HOURS, #90 TAB Insulin Aspart (Novolog Flexpen) 100 Unit/1 Ml Insuln.pen 0 UNITS SUBQ BEFORE MEALS AND HS, #1 EA Levofloxacin* (Levaquin*) 250 Mg Tablet 250 MG GT DAILY, #1 TAB Continued Medications: Acetaminophen (Tylenol) 325 Mg Tab 325 MG Q6H for Prn Pain/Headache/Temp > 101, #30 TAB 0 Refills Amlodipine Besylate (Norvasc) 10 Mg Tab 10 MG GT DAILY, TAB Aspirin* (Aspir 81*) 81 Mg Tablet.dr 81 MG GT DAILY, TAB Calcium Carbonate/Vitamin D3 (Calcium + Vitamin D Tablet) 1 Each Tablet Unknown Dose PO, TAB Docusate Sodium (Docusate Sodium) 50 Mg/5 Ml Liquid 100 MG GT BID, ML Fish Oil (Fish Oil 1,000 mg Capsule) 1 Each Capsule 1000 MG GT DAILY, CAP Furosemide* (Lasix*) 40 Mg Tablet 40 MG ORAL DAILY, #30 TAB Gabapentin (Neurontin) 300 Mg Cap 300 MG GT THREE TIMES A DAY, #15 CAP 0 Refills Magnesium Hydroxide* (Milk Of Magnesia*) 2,400 Mg/10 Ml Oral.susp 30 ML ORAL HS PRN for Constipation, ML Multivitamin With Minerals (Multivitamins With Minerals*) 1 Each Tablet 1 TAB ORAL DAILY, TAB Na Phos,M-B/Na Phos,Di-Ba* (Fleet Enema*) 133 Ml Enema 133 ML RECTAL DAILY PRN for CON, ML 0 Refills Pravastatin Sod (Pravastatin Sod) 40 Mg Tablet 40 MG GT BEDTIME, TAB Discontinued Medications: Amlodipine Besylate (Norvasc) 10 Mg Tablet 10 MG GT DAILY, TAB Hydralazine Hcl* (Hydralazine Hcl*) 50 Mg Tablet 50 MG GT CLIFFORD, TAB Discharge Discharge Disposition Patient was discharged to SNF/Subacute Facility(03) Discharge Diagnoses: Brownlee (Vanchtein),Geovanna TILE SPRAYER May 29, 2017 10:47
--- NOTE | 2017-05-30 00:32 | Discharge Summary 2 SIG ---
DATE OF ADMISSION: 05/21/2017 DATE OF DISCHARGE: 05/26/2017 REASON FOR ADMISSION: 82-year-old male, bed-bound, nonverbal, with past medical history of diabetes, hypertension, dysphagia, and G-tube, was sent from the assisted [facility] for evaluation. According to paramedics, the patient had a fever at the facility. In the emergency room,the patient required placement on supplemental oxygen and saturated 94% on two liters nasal cannula. No tachycardia. The patient had low grade fever- 99.7. EKG revealed normal sinus rhythm. No acute ischemic changes. Chest x-ray revealed possible right-sided infiltrate. Noted leukocytosis- 12.9. Hemoglobin and hematocrit, stable. Urinalysis with no evidence of urinary tract infection. Electrolytes stable. Evidence of renal insufficiency with BUN -43 and creatinine -1.7. Lactic acid - 1.2. Troponin elevated- 0.108. Pro BNP - 1175. The patient had copious amount of secretion and was suctioned. The patient was admitted with fever, respiratory distress, probably healthcare-associated pneumonia, elevated troponin, encephalopathy, and history of CVA. HOSPITAL COURSE: The patient was admitted to telemetry floor. Cardiology closely followed. Troponin level was elevated likely due to renal failure as per Cardiology. Echocardiogram revealed preserved ejection fraction of 55% to 60% and right ventricular systolic pressure of 13. ProBNP was trending down. DVT prophylaxis provided. Blood pressure was managed with calcium channel suzi and hydralazine and remained stable. Aoc Director Intelligence Officer closely followed. Supplemental oxygen and pulmonary toilet provided as needed. The patient was on empiric antibiotics. ID specialist followed. Influenza, sputum, and blood culture were all negative. Chest x-ray revealed left base atelectasis. The patient was suctioned as needed. Antitussives provided as needed. The patient was on the IV fluids. Renal parameters and electrolytes were closely monitored. Electrolytes corrected as needed. Nephrotoxics were avoided. Creatinine trending down. Blood sugar was managed with sliding scale of insulin and remained stable. Strict aspiration precautions were maintained. Noted malfunctioning G-tube. The G-tube was replaced at the bedside by GI specialist. Afterwards, G-tube feeding slowly restarted and increased to the goal as recommended by spa associate. The patient was able to tolerate G-tube feeding. G-tube functioning properly. The patient was afebrile. Leukocytosis resolved. Creatinine from 1.7 down to 1.4. Electrolytes stable. Patient was stable for discharge to the assisted facility. FINAL DIAGNOSES: 1. Possible sepsis ( POA) 2. Acute bronchitis. 3. Elevated troponin. 4. Hypertension. 5. Acute renal failure. 6. Chronic renal insufficiency. 7. Possible acute tubular necrosis. 8. Elevated proBNP. 9. Possible congestive heart failure. 10. Atelectasis. 11. Diabetes. 12. Dysphagia. 13. Gastrostomy tube. 14. Malfunctioning gastrostomy tube, status post replacement at the bedside. 15. Dehydration. 16. Dementia. 17. History of cerebrovascular accident. DISCHARGE MEDICATIONS: See medication reconciliation list. DISCHARGE INSTRUCTIONS: The patient was discharged to assisted facility. FOLLOWUP: Follow up with medical doctor at the facility. Remberto Joe D.O. I have been assigned to dictate discharge summary on this account and I was not involved in the patient's management. Geovanna Acunaflip NRancho DR: MARIA E JOB#: [id number] CC: VEL
== END 2017-05-26 13:47 | DRG 720 ==
LOC: EDBD 21:57 → EMR 22:07 → 2W 23:11 → EDBEDREQTM 23:59 → EDBEDREQSVC 23:59 → EDBEDREQ 05-22 00:18 → 4E 05-23 17:32
PROC: 0D20XUZ Change Feeding Device in Upper Intestinal Tract, External Approach (ICD-10-PCS; principal; 2017-05-21)
DX: A41.9 Sepsis, unspecified organism (principal); N17.0 Acute kidney failure with tubular necrosis; G93.40 Encephalopathy, unspecified; J18.9 Pneumonia, unspecified organism; I13.0 Hypertensive heart and chronic kidney disease with heart failure and stage 1 through stage 4 chronic kidney disease, or unspecified chronic kidney disease; E87.1 Hypo-osmolality and hyponatremia; F03.90 Unspecified dementia, unspecified severity, without behavioral disturbance, psychotic disturbance, mood disturbance, and anxiety; I50.9 Heart failure, unspecified; K94.23 Gastrostomy malfunction; E11.22 Type 2 diabetes mellitus with diabetic chronic kidney disease; J40 Bronchitis, not specified as acute or chronic; N39.0 Urinary tract infection, site not specified; R13.10 Dysphagia, unspecified; Y83.3 Surgical operation with formation of external stoma as the cause of abnormal reaction of the patient, or of later complication, without mention of misadventure at the time of the procedure; E78.5 Hyperlipidemia, unspecified; Z79.4 Long term (current) use of insulin; I69.320 Aphasia following cerebral infarction; E86.0 Dehydration; R74.8 Abnormal levels of other serum enzymes; N18.9 Chronic kidney disease, unspecified
CPT/HCPCS: 36415; 71045; 74018; 80048; 80053; 80069; 81003; 82607; 82728; 82746; 82962; 83540; 83550; 83605; 83880; 84439; 84443; 84484; 85025; 85044; 85610; 85730; 86710; 87040; 87070; 87205; 93005; 93306; 94760; 99285; J1815; J7620

== ENCOUNTER 2018-03-27 16:58 | Inpatient (IN) | payer MEDICAID ==
[~2018-03-27] VITALS: Ht 177.8 cm; Wt 78.0 kg
[2018-03-27] VITALS (7 sets, daily range): BP systolic 109–142; BP diastolic 48–72
[~2018-03-27 16:58] MED LIST changes: +APRESOLINE50 MG GT; +CALCIUM + VITA1 EAC1 PO; +FISH OIL CAP1000 MG GT; +LEVAQUIN250 M1 GT; +NOVOLOG100 UNITS1 SUBQ
[2018-03-27] MEDS ORDERED: CALCIUM CARBON500 M1 GT (17:10)
[2018-03-27] MEDS ORDERED: ACETAMINOP160 MG/5 M GT (17:10)
[2018-03-27] MEDS ORDERED: Albuterol ud Inhalation HHN ONE (17:15)
[2018-03-27] MEDS ORDERED: Acetaminophen 650 MG SUPP RECTAL ONE (17:15)
[2018-03-27] MEDS ORDERED: Meropenem 1 GM in NS 55 ML IVPB ONE (17:15)
--- NOTE | 2018-03-27 17:18 | Emergency Room Report ---
History of Present Illness General Chief Complaint: Fever Source: Medical Record, EMS Present Illness HPI This patient presents from a assisted facility. He has had cough and thick sputum production with fever that was noted today by his primary care physician.Patient has a history of encephalopathy, CVA, congestive heart failure , diabetes. The patient is unable to give a history secondary to his baseline confusion and dementia. Allergies: Coded Allergies: NO KNOWN DRUG ALLERGIES (Unverified Allergy, Unknown, 05/29/14) Patient History Past Medical History: see triage record, DM, HTN, HI, CAD, GERD, CVA/TIA, dementia, renal disease Past Surgical History: other - G-tube Social History: Denies: smoking, alcohol use, drug use Reviewed Nursing Documentation: PMH: Agreed; PSxH: Agreed Nursing Documentation-PMH Hx Cardiac Problems: Yes - anemia, HLD, CHF Hx Hypertension: Yes Hx Asthma: Yes - bronchitis Hx COPD: No Hx Diabetes: No Hx Cancer: No Hx Gastrointestinal Problems: Yes - gastrostomy Hx Dialysis: No History Of Psychiatric Problem: No Hx Neurological Problems: Yes - encephalopathy, dysphagia, ALOC, esophagostomy malf Hx Cerebrovascular Accident: No Hx Dementia: Yes Hx Seizures: No Hx Head Trauma: Yes Hx Aphasia: Yes Hx Weakness: Yes Hx Neurologic Surgery: No Hx Brain Shunt: No Review of Systems All Other Systems: negative except mentioned in HPI Physical Exam Vital Signs Date Time Temp Pulse Resp B/P (MAP) Pulse Ox O2 Delivery O2 Flow Rate FiO2 03/27/18 16:52 100 24 119/62 97 Nasal Cannula 6.0 Sp02 EP Interpretation: reviewed, normal General Appearance: no apparent distress, alert, GCS 15, non-toxic, cachetic, Chronically Ill Head: normocephalic, atraumatic Eyes: bilateral eye PERRL ENT: no angioedema Neck: full range of motion, supple/symm/no masses Respiratory: chest non-tender, no respiratory distress, no retraction, no accessory muscle use, rhonchi Cardiovascular #1: no edema, tachycardia, systolic murmur Gastrointestinal: normal bowel sounds, non tender, soft, non-distended, no guarding, no rebound, other - G-tube Rectal: deferred Musculoskeletal: normal range of motion, non-tender, other - atrophy diffusely Neurologic: alert, other - Unable to fully assess, grossly normal Psychiatric: mood/affect normal Skin: warm/dry, other - See detailed RN skin exam for DU Procedures Intubation Intubation : Consent: Emergent Intubation Method: orotracheal Tube Size (cm): 7.5 Medications: Etomidate, Succinylcholine Breath Sounds after Intubation: equal Intubation Complications: no complications Post Intubation Xray: Yes Attempts: One Patient Tolerated: Well Complications: None Medical Decision Making Diagnostic Impression: Primary Impression: Sepsis Additional Impressions: Pneumonia Fever Respiratory failure Hypernatremia Renal failure Elevated troponin ER Course This patient has pneumonia and sepsis. He presented febrile with a temp of 101.4. The patient is also found to have CO2 retention. He was placed on BiPAP and repeat ABG showed . He is also hypernatremic and in renal failure. The patient's troponin is also elevated consistent with cardiac injury. He is slightly tachycardic. He has an opacification on chest x-ray consistent with pneumonia. He meets criteria for severe sepsis. He was given aggressive IV fluids and broad-spectrum antibiotics and admitted to the ICU step down. This patient is critically ill. This patient required complex medical decision- making, aggressive intervention, extensive laboratory workup and monitoring. Critical care time: 40 minutes. Add note: I had planned on intubating this patient in the emergency department after seeing the patient second ABG which did not improve after being on BiPAP. However, the patient had been brought up to the ICU and so I went to the ICU just after his arrival there are and intubated him by rapid sequence intubation. There were no complications. See my procedure note. Please note that this Emergency Department Report was dictated using [employer] manager technology software, occasionally this can lead to erroneous entry secondary to interpretation by the dictation equipment. Laboratory Tests Test 03/27/18 17:07 03/27/18 17:15 03/27/18 17:30 03/27/18 17:32 Lactic Acid Level Pending White Blood Count 14.6 K/UL (4.8-10.8) H Red Blood Count 4.45 M/UL (4.70-6.10) L Hemoglobin 12.5 G/DL (14.2-18.0) L Hematocrit 39.0 % (42.0-52.0) L Mean Corpuscular Volume 88 FL (80-99) Mean Corpuscular Hemoglobin 28.2 PG (27.0-31.0) Mean Corpuscular Hemoglobin Concent 32.1 G/DL (32.0-36.0) Red Cell Distribution Width 12.9 % (11.6-14.8) Platelet Count 249 K/UL (150-450) Mean Platelet Volume 7.5 FL (6.5-10.1) Neutrophils (%) (Auto) 83.4 % (45.0-75.0) H Lymphocytes (%) (Auto) 10.3 % (20.0-45.0) L Monocytes (%) (Auto) 5.5 % (1.0-10.0) Eosinophils (%) (Auto) 0.1 % (0.0-3.0) Basophils (%) (Auto) 0.7 % (0.0-2.0) Sodium Level 151 MMOL/L (136-145) H Potassium Level 4.6 MMOL/L (3.5-5.1) Chloride Level 110 MMOL/L (98-107) H Carbon Dioxide Level 37 MMOL/L (21-32) H Anion Gap 4 mmol/L (5-15) L Blood Urea Nitrogen 80 mg/dL (7-18) H Creatinine 2.6 MG/DL (0.55-1.30) H Estimate Glomerular Filtration Rate mL/min (>60) Glucose Level 284 MG/DL (74-106) H Calcium Level 10.9 MG/DL (8.5-10.1) H Total Bilirubin Pending Aspartate Amino Transferase (AST) Pending Alanine Aminotransferase (ALT) Pending Alkaline Phosphatase Pending Total Creatine Kinase Pending Creatine Kinase MB Pending Troponin I 0.092 ng/mL (0.000-0.056) Total Protein Pending Albumin Pending Globulin Pending Urine Color Pale yellow Urine Appearance Cloudy Urine pH 5 (4.5-8.0) Urine Specific [place] 1.010 (1.005-1.035) Urine Protein 3+ (NEGATIVE) H Urine Glucose (UA) Negative (NEGATIVE) Urine Ketones Negative (NEGATIVE) Urine Blood Negative (NEGATIVE) Urine Nitrite Negative (NEGATIVE) Urine Bilirubin Negative (NEGATIVE) Urine Urobilinogen Normal MG/DL (0.0-1.0) Urine Leukocyte Esterase Negative (NEGATIVE) Urine RBC Pending Urine WBC Pending Urine Squamous Epithelial Cells Pending Urine Bacteria Pending Arterial Blood pH 7.324 (7.350-7.450) Arterial Blood Partial Pressure CO2 62.2 mmHg (35.0-45.0) *H Arterial Blood Partial Pressure O2 101.5 mmHg (75.0-100.0) H Arterial Blood HCO3 31.6 mmol/L (22.0-26.0) H Arterial Blood Oxygen Saturation 96.8 % (95-100) Arterial Blood Base Excess 4.1 (-2-2) H Juan Carlos Test Positive EKG Diagnostic Results Rate: normal Rhythm: NSR ST Segments: no acute changes Rhythm Strip Diag. Results EP Interpretation: yes Rate: 100's Rhythm: no PVC's, no ectopy, other - S.tachycardia Chest X-Ray Diagnostic Results Chest X-Ray Diagnostic Results : Chest X-Ray Ordered: Yes # of Views/Limited/Complete: 1 View Indication: Shortness of Breath EP Interpretation: Yes Interpretation: no effusion, no pneumothorax, other - RLL opacity Impression: Other - See above Electronically Signed by: Silvia Brumfield DO Last Vital Signs Date Time Temp Pulse Resp B/P (MAP) Pulse Ox O2 Delivery O2 Flow Rate FiO2 03/27/18 16:52 100 24 119/62 97 Nasal Cannula 6.0 Disposition: ADMITTED INPATIENT Condition: Critical Silvia Brumfield DO Mar 27, 2018 17:18
[2018-03-27 17:32] LABS: BASOPHILS % (AUTO) 0.7 % (0.0-2.0); EOSINOPHILS % (AUTO) 0.1 % (0.0-3.0); HEMOGLOBIN 12.5 G/DL (14.2-18.0); LYMPHOCYTES % (AUTO) 10.3 % (20.0-45.0); MEAN CORPUSCULAR VOLUME 88 FL (80-99); MONOCYTES % (AUTO) 5.5 % (1.0-10.0); NEUTROPHILS % (AUTO) 83.4 % (45.0-75.0); PLATELET COUNT 249 K/UL (150-450); RED BLOOD COUNT 4.45 M/UL (4.70-6.10); RED CELL DISTRIBUTION WIDTH 12.9 % (11.6-14.8); WHITE BLOOD COUNT 14.6 K/UL (4.8-10.8)
[2018-03-27 17:45] LABS: ANION GAP 4 mmol/L (5-15); BLOOD UREA NITROGEN 80 mg/dL (7-18); CALCIUM 10.9 MG/DL (8.5-10.1); CARBON DIOXIDE 37 MMOL/L (21-32); CHLORIDE 110 MMOL/L (98-107); CREATININE 2.6 MG/DL (0.55-1.30); POTASSIUM 4.6 MMOL/L (3.5-5.1); SODIUM 151 MMOL/L (136-145)
[2018-03-27 17:49] LABS: APPEARANCE,URINE CLOUDY; BILIRUBIN, URINE NEGATIVE (NEGATIVE); COLOR,URINE PALE YELLOW; GLUCOSE, URINE (UA) NEGATIVE (NEGATIVE); KETONES,URINE NEGATIVE (NEGATIVE); LEUKOCYTE ESTERASE ,URINE NEGATIVE (NEGATIVE); NITRITE,URINE NEGATIVE (NEGATIVE); PH,URINE 5 (4.5-8.0); PROTEIN,URINE 3+ (NEGATIVE); UROBILINOGEN,URINE NORMAL MG/DL (0.0-1.0)
[2018-03-27 17:58] LABS: ALANINE AMINOTRANSFERASE 28 U/L (12-78); ALBUMIN 3.2 G/DL (3.4-5.0); ALBUMIN/GLOBULIN RATIO 0.5 (1.0-2.7); ALKALINE PHOSPHATASE 100 U/L (46-116); ASPARTATE AMINO TRANSFERASE 17 U/L (15-37); BILIRUBIN,TOTAL 0.5 MG/DL (0.2-1.0); CKMB 0.5 NG/ML (0.0-3.6); CREATINE KINASE 53 U/L (26-308)
[2018-03-27] MEDS ORDERED: Morphine Sulfate 2mg/ml Inj IVP PRN ×3 (19:45→21:45)
[2018-03-27] MEDS ORDERED: Albuterol/Ipratropium 3ml neb HHN PRN (19:45)
[2018-03-27] MEDS ORDERED: Miralax 17gm pkt ORAL PRN (19:45)
[2018-03-27] MEDS ORDERED: Nitroglycerin Subl 0.4mg tab SL PRN (20:00)
[2018-03-27] MEDS ORDERED: Cefepime HCl 2 GM in D5W 110 ML IV SCH (21:00)
[2018-03-27] MEDS ORDERED: Vancomycin 1.5 GM/D5W 250ML IVPB ONE (21:30)
[2018-03-27] MEDS ORDERED: LORazepam Inj 2mg/ml 1ml IV PRN (21:45)
[2018-03-27] MEDS ORDERED: Morphine Sulfate 4mg/ml Inj (IV/IM USE ONLY) IVP PRN (21:45)
[2018-03-27] MEDS: Heparin 5000 units/ml inj SUBQ SCH (21:55)
[2018-03-27] MEDS: NovoLOG Insulin Flexpen SUBQ SCH (21:56)
[2018-03-27] MEDS: Gabapentin 300 MG/6 ML Soln GT SCH (21:57)
[2018-03-27] MEDS: HydrALAZINE 50mg tab GT SCH (21:57)
[2018-03-28] VITALS (24 sets, daily range): BP systolic 97–144; BP diastolic 39–58
[2018-03-28] MEDS ORDERED: Vancomycin 1 GM in D5W 275 ML IV SCH (00:30)
[2018-03-28] MEDS: Cefepime 1gm/D5W 55ml IVPB SCH ×2 (01:00)
[2018-03-28 05:33] LABS: BASOPHILS % (AUTO) 0.6 % (0.0-2.0); EOSINOPHILS % (AUTO) 0.4 % (0.0-3.0); HEMATOCRIT 30.3 % (42.0-52.0); HEMOGLOBIN 9.8 G/DL (14.2-18.0); MEAN CORPUSCULAR VOLUME 87 FL (80-99); MONOCYTES % (AUTO) 5.2 % (1.0-10.0); NEUTROPHILS % (AUTO) 82.8 % (45.0-75.0); PLATELET COUNT 191 K/UL (150-450); RED BLOOD COUNT 3.47 M/UL (4.70-6.10); RED CELL DISTRIBUTION WIDTH 12.8 % (11.6-14.8); WHITE BLOOD COUNT 11.1 K/UL (4.8-10.8)
[2018-03-28] MEDS: HydrALAZINE 50mg tab GT SCH (06:22)
[2018-03-28] MEDS: Gabapentin 300 MG/6 ML Soln GT SCH ×3 (06:22→21:39)
[2018-03-28] MEDS: NovoLOG Insulin Flexpen SUBQ SCH ×3 (06:27→18:00)
[2018-03-28 06:28] LABS: ALANINE AMINOTRANSFERASE 23 U/L (12-78); ALBUMIN 2.3 G/DL (3.4-5.0); ALBUMIN/GLOBULIN RATIO 0.5 (1.0-2.7); ALKALINE PHOSPHATASE 77 U/L (46-116); ANION GAP 10 mmol/L (5-15); ASPARTATE AMINO TRANSFERASE 17 U/L (15-37); BILIRUBIN,TOTAL 0.6 MG/DL (0.2-1.0); BLOOD UREA NITROGEN 64 mg/dL (7-18); CALCIUM 9.4 MG/DL (8.5-10.1); CARBON DIOXIDE 27 MMOL/L (21-32); CHLORIDE 116 MMOL/L (98-107); CREATININE 2.1 MG/DL (0.55-1.30); POTASSIUM 3.6 MMOL/L (3.5-5.1); SODIUM 153 MMOL/L (136-145)
[2018-03-28] MEDS ORDERED: NS 275ml ONE (08:48)
[2018-03-28] MEDS ORDERED: Tubing IV Secondary IV ONE (08:48)
--- NOTE | 2018-03-28 08:48 | Diagnostic Imaging Report ---
Indication: Cough Technique: One view of the chest Comparison: 05/21/2017 Findings: Atelectatic changes are seen at both lung bases. The heart is mildly enlarged. The pleural spaces are clear. The lungs are otherwise clear. The aorta is tortuous ectatic and calcified Impression: Bilateral basilar atelectatic changes No acute process otherwise
[2018-03-28] MEDS: Heparin 5000 units/ml inj SUBQ SCH ×2 (09:09→21:39)
--- NOTE | 2018-03-28 09:38 | Diagnostic Imaging Report ---
Indication: Post intubation Technique: One view of the chest Comparison: 3 hours earlier Findings: Interim endotracheal intubation, endotracheal tube tip just above the ema. There is suggestion of increasing right perihilar congestive change. There is some atelectasis at the left lung base. Impression: Somewhat low position of endotracheal tube. Increasing right perihilar congestion This agrees with the preliminary interpretation provided overnight by [facility].
--- NOTE | 2018-03-28 09:39 | Diagnostic Imaging Report ---
Indication: Post repositioning of endotracheal tube Technique: One view of the chest Comparison: One hour earlier Findings: Interim retraction of endotracheal tube, tip now projecting approximately 5 cm above the ema, in good position. Persistent right perihilar congestive change, left basilar atelectasis. Heart size is borderline enlarged. Impression: Improved position of endotracheal tube This agrees with the preliminary interpretation provided overnight by [facility].
--- NOTE | 2018-03-28 09:50 | Pulmonolgy Critical Care Note ---
Critical Care - Asmt/Plan Problems: (1) Acute respiratory failure (2) Sepsis (3) Dementia (4) HTN (hypertension) (5) Diabetes (6) History of CVA (cerebrovascular accident) (7) Feeding by G-tube Respiratory: monitor respiratory rate, adjust FIO2, CXR Cardiac: continue pressors, continue to monitor HR/BP Renal: F/U I&O Infectious Disease: check cultures Gastrointestinal: continue feedings/current rate Endocrine: check TSH Hematologic: monitor H/H, transfuse if hgb<8.5 Neurologic: PRN Ativan, PRN Morphine, keep patient comfortable Prophylaxis: Protonix Notes Reviewed: cardio, 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, consultants, 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 manager - Objective Last 24 Hour Vital Signs Date Time Temp Pulse Resp B/P (MAP) Pulse Ox O2 Delivery O2 Flow Rate FiO2 03/28/18 09:07 79 115/46 03/28/18 09:00 82 16 115/46 (69) 100 03/28/18 08:48 73 16 45 03/28/18 08:00 100.1 76 16 110/43 (65) 100 03/28/18 08:00 45 03/28/18 07:00 83 16 117/39 (65) 100 03/28/18 06:43 79 16 45 03/28/18 06:22 135/52 03/28/18 06:00 79 16 132/54 (80) 100 03/28/18 05:34 87 16 45 03/28/18 05:00 79 16 129/57 (81) 100 03/28/18 04:00 98.0 86 16 128/44 (72) 100 03/28/18 04:00 89 03/28/18 04:00 70 03/28/18 04:00 Bi-pap 100.0 03/28/18 03:25 89 16 45 03/28/18 03:00 79 16 143/50 (81) 100 03/28/18 02:00 79 16 118/53 (74) 100 03/28/18 01:06 85 16 45 03/28/18 01:00 86 16 131/48 (75) 100 03/28/18 00:00 Bi-pap 100.0 03/28/18 00:00 98.0 86 16 123/47 (72) 100 03/27/18 23:00 86 16 131/48 (75) 100 03/27/18 22:54 90 16 60 03/27/18 22:00 92 16 111/52 (71) 100 03/27/18 21:57 105/47 03/27/18 21:40 70 03/27/18 21:38 70 03/27/18 21:00 103 14 109/59 (76) 100 03/27/18 20:54 101 17 100 03/27/18 20:17 95 20 100 03/27/18 20:00 Bi-pap 100.0 03/27/18 20:00 94 03/27/18 20:00 100 03/27/18 20:00 97.4 93 22 116/54 (74) 100 03/27/18 19:59 Mechanical Ventilator 03/27/18 19:40 100.1 95 19 126/72 98 Bi-pap 2.0 40 03/27/18 19:28 100.1 95 19 126/72 98 Bi-pap 40 03/27/18 19:20 97 03/27/18 18:50 98 19 97 Facial 40 03/27/18 18:38 100.1 98 24 126/52 98 Bi-pap 40 03/27/18 18:11 40 03/27/18 18:05 99 25 97 Facial 40 03/27/18 18:04 100.1 03/27/18 17:46 98 22 100 Nasal Cannula 2.0 28 03/27/18 17:30 101 22 99 Nasal Cannula 2.0 28 03/27/18 17:25 97 21 Nasal Cannula 2.0 03/27/18 17:24 101.4 97 21 142/60 97 Nasal Cannula 2.0 03/27/18 16:52 100 24 119/62 97 Nasal Cannula 6.0 Status: sedated Condition: grave Neck: full ROM Lungs: chest wall tender Heart: HR/BP unstable Abdomen: soft, non-tender Extremities: no C/C/E, edema Micro: Microbiology Date/Time Source Procedure Growth Status 03/27/18 17:15 Nasal Nares Influenza Types A,B Antigen (JETHRO) - Final Complete 03/27/18 17:30 Urine,Clean Catch Urine Culture - Preliminary NO GROWTH Resulted Accucheck: 237 Critical Care - Subjective ROS Limited/Unobtainable: Yes Interval Events: 82 year old male with hx of DM, HTN, PR, CAD, GERD, CVA/TIA, dementia, renal disease presented from a [facility] facility with CC of cough and thick sputum production with fever. The patient was unable to give a history secondary to his baseline confusion and dementia. He was in respiratory failure and was intubated in ER and transferred to ICU for further management. FI02: 45 Vent Support Breath Rate: 16 Vent Support Mode: AC Vent Tidal Volume: 500 Sputum Amount: Small PEEP: 5.0 PIP: 30 I&O: Intake and Output 03/27/18 03/28/18 18:59 06:59 Intake Total 2455 ml 2305 ml Output Total 725 ml Balance 2455 ml 1580 ml Intake IV Total 2455 ml 2305 ml Output Urine Total 725 ml # Voids 1 # Bowel Movements 2 ET-Tube: 7.5 ET Position: 20 Labs: Laboratory Tests Test 03/27/18 17:07 03/27/18 17:15 03/27/18 17:30 03/27/18 17:32 Lactic Acid Level 1.10 mmol/L (0.4-2.0) White Blood Count 14.6 K/UL (4.8-10.8) H Red Blood Count 4.45 M/UL (4.70-6.10) L Hemoglobin 12.5 G/DL (14.2-18.0) L Hematocrit 39.0 % (42.0-52.0) L Mean Corpuscular Volume 88 FL (80-99) Mean Corpuscular Hemoglobin 28.2 PG (27.0-31.0) Mean Corpuscular Hemoglobin Concent 32.1 G/DL (32.0-36.0) Red Cell Distribution Width 12.9 % (11.6-14.8) Platelet Count 249 K/UL (150-450) Mean Platelet Volume 7.5 FL (6.5-10.1) Neutrophils (%) (Auto) 83.4 % (45.0-75.0) H Lymphocytes (%) (Auto) 10.3 % (20.0-45.0) L Monocytes (%) (Auto) 5.5 % (1.0-10.0) Eosinophils (%) (Auto) 0.1 % (0.0-3.0) Basophils (%) (Auto) 0.7 % (0.0-2.0) Sodium Level 151 MMOL/L (136-145) H Potassium Level 4.6 MMOL/L (3.5-5.1) Chloride Level 110 MMOL/L (98-107) H Carbon Dioxide Level 37 MMOL/L (21-32) H Anion Gap 4 mmol/L (5-15) L Blood Urea Nitrogen 80 mg/dL (7-18) H Creatinine 2.6 MG/DL (0.55-1.30) H Estimat Glomerular Filtration Rate mL/min (>60) Glucose Level 284 MG/DL (74-106) H Calcium Level 10.9 MG/DL (8.5-10.1) H Total Bilirubin 0.5 MG/DL (0.2-1.0) Aspartate Amino Transf (AST/SGOT) 17 U/L (15-37) Alanine Aminotransferase (ALT/SGPT) 28 U/L (12-78) Alkaline Phosphatase 100 U/L (46-116) Total Creatine Kinase 53 U/L (26-308) Creatine Kinase MB 0.5 NG/ML (0.0-3.6) Creatine Kinase MB Relative Index 0.9 Troponin I 0.092 ng/mL (0.000-0.056) Total Protein 9.5 G/DL (6.4-8.2) H Albumin 3.2 G/DL (3.4-5.0) L Globulin 6.3 g/dL Albumin/Globulin Ratio 0.5 (1.0-2.7) L Urine Color Pale yellow Urine Appearance Cloudy Urine pH 5 (4.5-8.0) Urine Specific [place] 1.010 (1.005-1.035) Urine Protein 3+ (NEGATIVE) H Urine Glucose (UA) Negative (NEGATIVE) Urine Ketones Negative (NEGATIVE) Urine Blood Negative (NEGATIVE) Urine Nitrite Negative (NEGATIVE) Urine Bilirubin Negative (NEGATIVE) Urine Urobilinogen Normal MG/DL (0.0-1.0) Urine Leukocyte Esterase Negative (NEGATIVE) Urine RBC 0-2 /HPF (0 - 0) H Urine WBC 0 /HPF (0 - 0) Urine Squamous Epithelial Cells None /LPF (NONE/OCC) Urine Amorphous Sediment Many /LPF (NONE) H Urine Bacteria Moderate /HPF (NONE) H Arterial Blood pH 7.324 (7.350-7.450) Arterial Blood Partial Pressure CO2 62.2 mmHg (35.0-45.0) *H Arterial Blood Partial Pressure O2 101.5 mmHg (75.0-100.0) H Arterial Blood HCO3 31.6 mmol/L (22.0-26.0) H Arterial Blood Oxygen Saturation 96.8 % (95-100) Arterial Blood Base Excess 4.1 (-2-2) H Juan Carlos Test Positive Test 03/27/18 18:58 03/27/18 21:14 03/28/18 04:30 Arterial Blood pH 7.303 (7.350-7.450) 7.292 (7.350-7.450) Arterial Blood Partial Pressure CO2 61.0 mmHg (35.0-45.0) *H 58.3 mmHg (35.0-45.0) *H Arterial Blood Partial Pressure O2 71.3 mmHg (75.0-100.0) L 336.3 mmHg (75.0-100.0) H Arterial Blood HCO3 29.5 mmol/L (22.0-26.0) H 27.5 mmol/L (22.0-26.0) H Arterial Blood Oxygen Saturation 92.5 % (95-100) L 99.1 % (95-100) Arterial Blood Base Excess 2.1 (-2-2) H 0.1 (-2-2) Juan Carlos Test Positive Positive White Blood Count 11.1 K/UL (4.8-10.8) H Red Blood Count 3.47 M/UL (4.70-6.10) L Hemoglobin 9.8 G/DL (14.2-18.0) L Hematocrit 30.3 % (42.0-52.0) L Mean Corpuscular Volume 87 FL (80-99) Mean Corpuscular Hemoglobin 28.3 PG (27.0-31.0) Mean Corpuscular Hemoglobin Concent 32.4 G/DL (32.0-36.0) Red Cell Distribution Width 12.8 % (11.6-14.8) Platelet Count 191 K/UL (150-450) Mean Platelet Volume 7.8 FL (6.5-10.1) Neutrophils (%) (Auto) 82.8 % (45.0-75.0) H Lymphocytes (%) (Auto) 11.0 % (20.0-45.0) L Monocytes (%) (Auto) 5.2 % (1.0-10.0) Eosinophils (%) (Auto) 0.4 % (0.0-3.0) Basophils (%) (Auto) 0.6 % (0.0-2.0) Sodium Level 153 MMOL/L (136-145) H Potassium Level 3.6 MMOL/L (3.5-5.1) Chloride Level 116 MMOL/L (98-107) H Carbon Dioxide Level 27 MMOL/L (21-32) Anion Gap 10 mmol/L (5-15) Blood Urea Nitrogen 64 mg/dL (7-18) H Creatinine 2.1 MG/DL (0.55-1.30) H Estimat Glomerular Filtration Rate mL/min (>60) Glucose Level 231 MG/DL (74-106) H Calcium Level 9.4 MG/DL (8.5-10.1) Total Bilirubin 0.6 MG/DL (0.2-1.0) Aspartate Amino Transf (AST/SGOT) 17 U/L (15-37) Alanine Aminotransferase (ALT/SGPT) 23 U/L (12-78) Alkaline Phosphatase 77 U/L (46-116) Total Protein 7.3 G/DL (6.4-8.2) Albumin 2.3 G/DL (3.4-5.0) L Globulin 5.0 g/dL Albumin/Globulin Ratio 0.5 (1.0-2.7) L Wang Guzman MD Mar 28, 2018 09:50
--- NOTE | 2018-03-28 10:48 | Consultation ---
History of Present Illness General Date patient seen: Mar 28, 2018 Chief Complaint: Fever Present Illness HPI 82 y/o M with hx of DM2, HTN, CAD/MA, HLD, GERD, CVA/TIA, Chronic encephalopathy , CHF, Dementia, renal disease, dysphagia s/p G-tube, SNF resident presents to ED on 03/27 with productive cough and fever. Patient initially placed on Bipap but was intubated last night. Febrile to 101.4, WBC up to 14, now decreased to 11.1/ Allergies: Coded Allergies: NO KNOWN DRUG ALLERGIES (Unverified Allergy, Unknown, 05/29/14) Medication History Scheduled Acetaminophen (Tylenol), 325 MG Q6H, (Reported) Amlodipine Besylate (Norvasc), 10 MG GT DAILY, (Reported) Aspirin* (Aspir 81*), 81 MG GT DAILY, (Reported) Calcium Carbonate (Calcium Carbonate), 500 MG GT BID, (Reported) Calcium/Cranberry Fruit (Cranberry 400 Mg Caplet), 1 EACH PO EVERY 12 HOURS, ( Reported) Docusate Sodium (Docusate Sodium), 100 MG GT BID, (Reported) Fish Oil (Fish Oil 1,000 mg Capsule), 1,000 MG GT DAILY, (Reported) Furosemide* (Lasix*), 40 MG ORAL DAILY Furosemide* (Lasix*), 40 MG GT DAILY, (Reported) Gabapentin (Neurontin), 300 MG GT THREE TIMES A DAY, (Reported) Gabapentin* (Neurontin*), 300 MG GT THREE TIMES A DAY, (Reported) Glipizide* (Glucotrol*), 10 MG GT BID, (Reported) Glyburide* (Diabeta*), 5 MG GT BIAC, (Reported) Hydralazine HCl (Hydralazine HCl), 50 MG GT EVERY 8 HOURS Insulin Aspart (Novolog Flexpen), 0 UNITS SUBQ BEFORE MEALS AND HS Insulin Glargine (Lantus), 32 UNITS SUBQ BEDTIME, (Reported) Levofloxacin* (Levaquin*), 250 MG GT DAILY Multivitamin With Minerals (Multivitamins With Minerals*), 1 TAB ORAL DAILY, ( Reported) Pravastatin Sod (Pravastatin Sod), 40 MG GT BEDTIME, (Reported) Vit C/Ascorbate Ca/Ascorb Sod (Vitamin C 500 Mg/15 Ml Liquid), 500 MG GT BID, ( Reported) Scheduled PRN Acetaminophen 160MG/5ML* (Acetaminophen*), 20 ML GT Q4HR PRN for Fever/Headache/ Mild Pain, (Reported) Magnesium Hydroxide* (Milk Of Magnesia*), 30 ML ORAL HS PRN for Constipation, ( Reported) Na Phos,M-B/Na Phos,Di-Ba* (Fleet Enema*), 133 ML RECTAL DAILY PRN for CON, ( Reported) Miscellaneous Medications Calcium Carbonate/Vitamin D3 (Calcium + Vitamin D Tablet), Unknown Dose PO, ( Reported) Insulin Lispro (Humalog), 0 SUBQ, (Reported) Insulin Lispro (Humalog), 0 SUBQ, (Reported) Insulin Lispro (Humalog), Unknown Dose SUBQ, (Reported) Patient History Healthcare decision maker SHELBY AVILA (DAUGHTER) Resuscitation status Full Code Advanced Directive on File No Patient History Narrative Pmhx: as above Shx: Denies: smoking, alcohol use, drug use Fhx: non contributory Review of Systems All Other Systems: negative except mentioned in HPI Physical Exam Physical Exam Narrative General Appearance: no apparent distress, alert, non-toxic, cachetic, Chronically Ill HEENT: normocephalic, atraumati bilateral eye PERRL Neck: full range of motion, supple/symm/no masses Respiratory: chest non-tender, no respiratory distress, no retraction, no accessory muscle use, rhonchi Cardiovascular no edema, tachycardia, systolic murmur Gastrointestinal: normal bowel sounds, non tender, soft, non-distended, no guarding, no rebound, other - G-tube Musculoskeletal: normal range of motion, non-tender, other - atrophy diffusely Neurologic: alert, other - Unable to fully assess, grossly normal Skin: warm/dry, other - See detailed RN skin exam for DU Last 24 Hour Vital Signs Date Time Temp Pulse Resp B/P (MAP) Pulse Ox O2 Delivery O2 Flow Rate FiO2 03/28/18 10:00 99.2 71 16 97/42 (60) 100 03/28/18 09:50 99.2 03/28/18 09:07 79 115/46 03/28/18 09:00 82 16 115/46 (69) 100 03/28/18 08:48 73 16 45 03/28/18 08:00 100.1 76 16 110/43 (65) 100 03/28/18 08:00 Mechanical Ventilator 03/28/18 08:00 45 03/28/18 07:00 83 16 117/39 (65) 100 03/28/18 06:43 79 16 45 03/28/18 06:22 135/52 03/28/18 06:00 79 16 132/54 (80) 100 03/28/18 05:34 87 16 45 03/28/18 05:00 79 16 129/57 (81) 100 03/28/18 04:00 98.0 86 16 128/44 (72) 100 03/28/18 04:00 89 03/28/18 04:00 70 03/28/18 04:00 Bi-pap 100.0 03/28/18 03:25 89 16 45 03/28/18 03:00 79 16 143/50 (81) 100 03/28/18 02:00 79 16 118/53 (74) 100 03/28/18 01:06 85 16 45 03/28/18 01:00 86 16 131/48 (75) 100 03/28/18 00:00 Bi-pap 100.0 03/28/18 00:00 98.0 86 16 123/47 (72) 100 03/27/18 23:00 86 16 131/48 (75) 100 03/27/18 22:54 90 16 60 03/27/18 22:00 92 16 111/52 (71) 100 03/27/18 21:57 105/47 03/27/18 21:40 70 03/27/18 21:38 70 03/27/18 21:00 103 14 109/59 (76) 100 03/27/18 20:54 101 17 100 03/27/18 20:17 95 20 100 03/27/18 20:00 Bi-pap 100.0 03/27/18 20:00 94 03/27/18 20:00 100 03/27/18 20:00 97.4 93 22 116/54 (74) 100 03/27/18 19:59 Mechanical Ventilator 03/27/18 19:40 100.1 95 19 126/72 98 Bi-pap 2.0 40 03/27/18 19:28 100.1 95 19 126/72 98 Bi-pap 40 03/27/18 19:20 97 03/27/18 18:50 98 19 97 Facial 40 03/27/18 18:38 100.1 98 24 126/52 98 Bi-pap 40 03/27/18 18:11 40 03/27/18 18:05 99 25 97 Facial 40 03/27/18 18:04 100.1 03/27/18 17:46 98 22 100 Nasal Cannula 2.0 28 03/27/18 17:30 101 22 99 Nasal Cannula 2.0 28 03/27/18 17:25 97 21 Nasal Cannula 2.0 03/27/18 17:24 101.4 97 21 142/60 97 Nasal Cannula 2.0 03/27/18 16:52 100 24 119/62 97 Nasal Cannula 6.0 Intake and Output 03/27/18 03/28/18 18:59 06:59 Intake Total 2455 ml 2305 ml Output Total 725 ml Balance 2455 ml 1580 ml IV Total 2455 ml 2305 ml Output Urine Total 725 ml # Voids 1 # Bowel Movements 2 Laboratory Tests Test 03/27/18 17:07 03/27/18 17:15 03/27/18 17:30 03/27/18 17:32 Lactic Acid Level 1.10 mmol/L (0.4-2.0) White Blood Count 14.6 K/UL (4.8-10.8) H Red Blood Count 4.45 M/UL (4.70-6.10) L Hemoglobin 12.5 G/DL (14.2-18.0) L Hematocrit 39.0 % (42.0-52.0) L Mean Corpuscular Volume 88 FL (80-99) Mean Corpuscular Hemoglobin 28.2 PG (27.0-31.0) Mean Corpuscular Hemoglobin Concent 32.1 G/DL (32.0-36.0) Red Cell Distribution Width 12.9 % (11.6-14.8) Platelet Count 249 K/UL (150-450) Mean Platelet Volume 7.5 FL (6.5-10.1) Neutrophils (%) (Auto) 83.4 % (45.0-75.0) H Lymphocytes (%) (Auto) 10.3 % (20.0-45.0) L Monocytes (%) (Auto) 5.5 % (1.0-10.0) Eosinophils (%) (Auto) 0.1 % (0.0-3.0) Basophils (%) (Auto) 0.7 % (0.0-2.0) Sodium Level 151 MMOL/L (136-145) H Potassium Level 4.6 MMOL/L (3.5-5.1) Chloride Level 110 MMOL/L (98-107) H Carbon Dioxide Level 37 MMOL/L (21-32) H Anion Gap 4 mmol/L (5-15) L Blood Urea Nitrogen 80 mg/dL (7-18) H Creatinine 2.6 MG/DL (0.55-1.30) H Estimat Glomerular Filtration Rate mL/min (>60) Glucose Level 284 MG/DL (74-106) H Calcium Level 10.9 MG/DL (8.5-10.1) H Total Bilirubin 0.5 MG/DL (0.2-1.0) Aspartate Amino Transf (AST/SGOT) 17 U/L (15-37) Alanine Aminotransferase (ALT/SGPT) 28 U/L (12-78) Alkaline Phosphatase 100 U/L (46-116) Total Creatine Kinase 53 U/L (26-308) Creatine Kinase MB 0.5 NG/ML (0.0-3.6) Creatine Kinase MB Relative Index 0.9 Troponin I 0.092 ng/mL (0.000-0.056) Total Protein 9.5 G/DL (6.4-8.2) H Albumin 3.2 G/DL (3.4-5.0) L Globulin 6.3 g/dL Albumin/Globulin Ratio 0.5 (1.0-2.7) L Urine Color Pale yellow Urine Appearance Cloudy Urine pH 5 (4.5-8.0) Urine Specific [place] 1.010 (1.005-1.035) Urine Protein 3+ (NEGATIVE) H Urine Glucose (UA) Negative (NEGATIVE) Urine Ketones Negative (NEGATIVE) Urine Blood Negative (NEGATIVE) Urine Nitrite Negative (NEGATIVE) Urine Bilirubin Negative (NEGATIVE) Urine Urobilinogen Normal MG/DL (0.0-1.0) Urine Leukocyte Esterase Negative (NEGATIVE) Urine RBC 0-2 /HPF (0 - 0) H Urine WBC 0 /HPF (0 - 0) Urine Squamous Epithelial Cells None /LPF (NONE/OCC) Urine Amorphous Sediment Many /LPF (NONE) H Urine Bacteria Moderate /HPF (NONE) H Arterial Blood pH 7.324 (7.350-7.450) Arterial Blood Partial Pressure CO2 62.2 mmHg (35.0-45.0) *H Arterial Blood Partial Pressure O2 101.5 mmHg (75.0-100.0) H Arterial Blood HCO3 31.6 mmol/L (22.0-26.0) H Arterial Blood Oxygen Saturation 96.8 % (95-100) Arterial Blood Base Excess 4.1 (-2-2) H [place] Test Positive Test 03/27/18 18:58 03/27/18 21:14 03/28/18 04:30 Arterial Blood pH 7.303 (7.350-7.450) 7.292 (7.350-7.450) Arterial Blood Partial Pressure CO2 61.0 mmHg (35.0-45.0) *H 58.3 mmHg (35.0-45.0) *H Arterial Blood Partial Pressure O2 71.3 mmHg (75.0-100.0) L 336.3 mmHg (75.0-100.0) H Arterial Blood HCO3 29.5 mmol/L (22.0-26.0) H 27.5 mmol/L (22.0-26.0) H Arterial Blood Oxygen Saturation 92.5 % (95-100) L 99.1 % (95-100) Arterial Blood Base Excess 2.1 (-2-2) H 0.1 (-2-2) Juan Carlos Test Positive Positive White Blood Count 11.1 K/UL (4.8-10.8) H Red Blood Count 3.47 M/UL (4.70-6.10) L Hemoglobin 9.8 G/DL (14.2-18.0) L Hematocrit 30.3 % (42.0-52.0) L Mean Corpuscular Volume 87 FL (80-99) Mean Corpuscular Hemoglobin 28.3 PG (27.0-31.0) Mean Corpuscular Hemoglobin Concent 32.4 G/DL (32.0-36.0) Red Cell Distribution Width 12.8 % (11.6-14.8) Platelet Count 191 K/UL (150-450) Mean Platelet Volume 7.8 FL (6.5-10.1) Neutrophils (%) (Auto) 82.8 % (45.0-75.0) H Lymphocytes (%) (Auto) 11.0 % (20.0-45.0) L Monocytes (%) (Auto) 5.2 % (1.0-10.0) Eosinophils (%) (Auto) 0.4 % (0.0-3.0) Basophils (%) (Auto) 0.6 % (0.0-2.0) Sodium Level 153 MMOL/L (136-145) H Potassium Level 3.6 MMOL/L (3.5-5.1) Chloride Level 116 MMOL/L (98-107) H Carbon Dioxide Level 27 MMOL/L (21-32) Anion Gap 10 mmol/L (5-15) Blood Urea Nitrogen 64 mg/dL (7-18) H Creatinine 2.1 MG/DL (0.55-1.30) H Estimat Glomerular Filtration Rate mL/min (>60) Glucose Level 231 MG/DL (74-106) H Calcium Level 9.4 MG/DL (8.5-10.1) Total Bilirubin 0.6 MG/DL (0.2-1.0) Aspartate Amino Transf (AST/SGOT) 17 U/L (15-37) Alanine Aminotransferase (ALT/SGPT) 23 U/L (12-78) Alkaline Phosphatase 77 U/L (46-116) Total Protein 7.3 G/DL (6.4-8.2) Albumin 2.3 G/DL (3.4-5.0) L Globulin 5.0 g/dL Albumin/Globulin Ratio 0.5 (1.0-2.7) L Microbiology Date/Time Source Procedure Growth Status 03/27/18 17:15 Nasal Nares Influenza Types A,B Antigen (JETHRO) - Final Complete 03/27/18 17:30 Urine,Clean Catch Urine Culture - Preliminary NO GROWTH Resulted Height (Feet): 5 Height (Inches): 10.00 Weight (Pounds): 157 Medications Current Medications Medications (Trade) Dose Ordered Sig/Dimas Route PRN Reason Start Time Stop Time Status Last Admin Dose Admin Acetaminophen (Tylenol) 650 mg Q4H PRN ORAL T>100.5 03/27/18 19:45 04/26/18 19:44 03/28/18 09:08 Albuterol/ Ipratropium (Albuterol/ Ipratropium) 3 ml Q4H PRN HHN Shortness of Breath 03/27/18 19:45 04/01/18 19:44 Amlodipine Besylate (Norvasc) 10 mg DAILY GT 03/28/18 09:00 04/27/18 08:59 03/28/18 09:07 Cefepime HCl 1 gm/ Dextrose 55 ml @ 110 mls/hr Q24H IVPB 03/28/18 01:00 04/04/18 00:59 03/28/18 01:00 Dextrose (Dextrose 50%) 25 ml Q30M PRN IV Hypoglycemia 03/27/18 20:15 04/26/18 20:05 Dextrose (Dextrose 50%) 50 ml Q30M PRN IV hypoglycemia 03/27/18 20:15 04/26/18 20:14 Gabapentin (Neurontin) 300 mg Q8HR GT 03/27/18 22:00 04/26/18 21:59 03/28/18 06:22 Heparin Sodium (Porcine) (Heparin 5000 units/ml) 5,000 units EVERY 12 HOURS SUBQ 03/27/18 21:00 04/26/18 20:59 03/28/18 09:09 Hydralazine HCl (Apresoline) 50 mg EVERY 8 HOURS GT 03/27/18 22:00 04/26/18 21:59 03/28/18 06:22 Insulin Aspart (NovoLOG) BEFORE MEALS AND HS SUBQ 03/27/18 21:00 04/26/18 20:59 03/28/18 06:27 Lorazepam (Ativan 2mg/ml 1ml) 2 mg Q2H PRN IV For Anxiety 03/27/18 21:45 04/03/18 21:44 03/27/18 21:54 Morphine Sulfate (Morphine Sulfate) 2 mg Q4H PRN IVP Moderate Pain (Pain Scale 4-6) 03/27/18 21:45 04/03/18 19:44 Morphine Sulfate (Morphine Sulfate) 4 mg Q4H PRN IVP Severe Pain (Pain Scale 7-10) 03/27/18 21:45 04/03/18 21:44 Nitroglycerin (Ntg) 0.4 mg Q5MIN X 3 DOSES PRN SL Prn Chest Pain 03/27/18 20:00 04/26/18 19:59 Ondansetron HCl (Zofran) 4 mg Q6H PRN IVP Nausea & Vomiting 03/27/18 19:45 04/26/18 19:44 Polyethylene Glycol (Miralax) 17 gm DAILYPRN PRN ORAL Constipation 03/27/18 19:45 04/26/18 19:44 Temazepam (Restoril) 15 mg HSPRN PRN ORAL Insomnia 03/27/18 21:00 04/03/18 20:59 Vancomycin HCl (Vanco rx to dose) 1 ea DAILY PRN MISC . 03/27/18 20:15 04/26/18 20:14 Assessment/Plan Assessment/Plan Abx: Cefepime 03/28- IV Vancomycin 03/27- Meropenem x1 03/27 Assessment: Sepsis -u/a neg Probable PNA - Probable Influenza -CXR: Persistent right perihilar congestive change, left basilar atelectasis. -influenza sc neg Acute respiratory failure s/p intubation 03/28- likely combination of CHF and prob PNA Fever Leukocytosis, improving DM2 HTN CAD/MA HLD GERD CVA/TIA Chronic encephalopathy CHF Dementia renal disease dysphagia s/p G-tube SNF resident Plan: -Continue empiric IV Vancomycin and Cefepime pending sp cx -Add empiric Tamiflu and Azithromycin for influenza and atypical coverage, respectively -f/u cx -Monitor CBC/CMP, temperatures -legionella ag urine -aspiration precautions -ICU/ETT care Thank you for this consultation. Will continue to follow along with you. Discussed with Angela Robbins M.D. Mar 28, 2018 10:48
[2018-03-28] MEDS: Azithromycin 250mg tab ORAL SCH (11:40)
--- NOTE | 2018-03-28 11:58 | Diagnostic Imaging Report ---
APPROVED REPORT CPT Code: 87079 Present Symptoms Comments: R/O DVT BILATERAL: Imaging reveals a patent deep venous system bilaterally. There is no evidence of thrombus within the femoral, popliteal or tibial segments. The greater saphenous veins are also within normal limits. Doppler indicates normal spontaneous flow within these segments.
--- NOTE | 2018-03-28 13:12 | Consultation ---
Consult Note Consult Note asked to eval for renal failure- [facility] He has had cough and thick sputum production with fever that was noted today by his primary care physician.Patient has a history of encephalopathy, CVA, congestive heart failure , diabetes. The patient is unable to give a history secondary to his baseline confusion and dementia. NO KNOWN DRUG ALLERGIES (Unverified Allergy, Unknown, 05/29/14) Past Medical History: see triage record, DM, HTN, MD, CAD, GERD, CVA/TIA, dementia, renal disease Past Surgical History: other - G-tube Social History: Denies: smoking, alcohol use, drug use Reviewed Nursing Documentation: PMH: Agreed; PSxH: Agreed Hx Cardiac Problems: Yes - anemia, HLD, CHF Hx Hypertension: Yes Hx Asthma: Yes - bronchitis Hx Gastrointestinal Problems: Yes - gastrostomy Hx Neurological Problems: Yes - encephalopathy, dysphagia, ALOC, esophagostomy malf Hx Dementia: Yes Hx Head Trauma: Yes Hx Aphasia: Yes Hx Weakness: Yes examined data reviewed discussed with refrigeration technician/Plan Acute Renal Failure- PreRenal Azotemia / Dehydration Sepsis / Low BP Pneumonia Elevated Troponin Anemia Proteinuria / HypoAlbuminemia 1/2 NS Adjust BP meds urine studies monitor renal parameters Per orders Hansel Kirkpatrick MD Mar 28, 2018 13:12
[2018-03-28] MEDS: HydrALAZINE 25mg tab GT SCH ×2 (13:52→21:35)
[2018-03-28] MEDS: Pantoprazole Inj IVP SCH (13:59)
--- NOTE | 2018-03-28 18:15 | History and Physical Report ---
DATE OF ADMISSION: 03/27/2018 TIME SEEN: 12 noon. CONSULTANTS: 1. Wang Guzman M.D. 2. Mina Brandt M.D CHIEF COMPLAINT: Respiratory failure, pneumonia, sepsis. BRIEF HISTORY: This 82-year-old male from [facility], presented with above-mentioned diagnoses. The patient came in with respiratory distress, intubated, and admitted to ICU for further care. Currently intubated, sedated, lethargic in intensive care unit;, therefore history obtained from chart. REVIEW OF SYSTEMS: Unavailable. PAST MEDICAL HISTORY: ATN, CVA, diabetes, hypertension, CHF. PAST SURGICAL HISTORY: G-tube. MEDICATIONS: Include Zithromax, Norvasc, cefepime, Neurontin, Apresoline, Ativan, morphine, heparin, NovoLog, vancomycin, albuterol, polyethylene glycol, Zofran. ALLERGIES: Denies. SOCIAL HISTORY: Unable to obtain secondary to the patient's condition. PHYSICAL EXAMINATION: GENERAL: The patient intubated, sedated, lethargic in intensive care unit. VITAL SIGNS: Temperature 99, pulse 67, respirations 16, blood pressure 104/44 CARDIOVASCULAR: No murmur. LUNGS: Poor exchange. ABDOMEN: Bowel sounds distant. EXTREMITIES: No cyanosis, clubbing, edema. NEUROLOGIC: The patient is flaccid in bed, not following directions. LABORATORY AND DIAGNOSTIC DATA: Initial white count 14, now white count 11.1, hemoglobin and hematocrit 9.8/30 and platelets 191. BMP shows sodium 153, chloride 116, BUN and creatinine 64 and 2.1, glucose is 231. Urinalysis show 3+ protein, and moderate bacteria. ASSESSMENT: 1. Respiratory failure. 2. Pneumonia. 3. Sepsis. 4. ATN. 5. Anemia. 6. CVA. 7. Diabetes. 8. Hypertension. 9. CHF. PLAN: 1. . 2. Antibiotics per Infectious Diseases. 3. Blood pressure and blood sugar control. 4. IV fluids. 5. CBC and BMP in the morning. 6. Nephrology evaluation by Dr. Kirkpatrick. Remberto Joe D.O. DR: Bob JOB#: [id number] CC:
[2018-03-29] VITALS (24 sets, daily range): BP systolic 106–147; BP diastolic 41–64
[2018-03-29] MEDS: NovoLOG Insulin Flexpen SUBQ SCH ×5 (00:44→23:43)
[2018-03-29] MEDS: Cefepime 1gm/D5W 55ml IVPB SCH ×2 (01:00)
[2018-03-29 05:42] LABS: BASOPHILS % (AUTO) 0.6 % (0.0-2.0); EOSINOPHILS % (AUTO) 2.4 % (0.0-3.0); HEMATOCRIT 29.3 % (42.0-52.0); HEMOGLOBIN 9.6 G/DL (14.2-18.0); LYMPHOCYTES % (AUTO) 16.4 % (20.0-45.0); MEAN CORPUSCULAR VOLUME 86 FL (80-99); MONOCYTES % (AUTO) 5.2 % (1.0-10.0); NEUTROPHILS % (AUTO) 75.4 % (45.0-75.0); PLATELET COUNT 201 K/UL (150-450); RED CELL DISTRIBUTION WIDTH 12.6 % (11.6-14.8); WHITE BLOOD COUNT 8.7 K/UL (4.8-10.8)
[2018-03-29 06:23] LABS: ALANINE AMINOTRANSFERASE 31 U/L (12-78); ALBUMIN 2.3 G/DL (3.4-5.0); ALBUMIN/GLOBULIN RATIO 0.5 (1.0-2.7); ALKALINE PHOSPHATASE 80 U/L (46-116); ANION GAP 8 mmol/L (5-15); ASPARTATE AMINO TRANSFERASE 27 U/L (15-37); BILIRUBIN,TOTAL 0.5 MG/DL (0.2-1.0); BLOOD UREA NITROGEN 58 mg/dL (7-18); CALCIUM 9.6 MG/DL (8.5-10.1); CARBON DIOXIDE 27 MMOL/L (21-32); CHLORIDE 116 MMOL/L (98-107); POTASSIUM 3.3 MMOL/L (3.5-5.1); SODIUM 151 MMOL/L (136-145)
[2018-03-29 06:41] LABS: % IRON SATURATION 28 % (15-50); IRON 40 ug/dL (50-175); TOTAL IRON BINDING CAPACITY 141 ug/dL (250-450)
[2018-03-29 06:49] LABS: GAMMA GLUTAMYL TRANSPEPTIDASE 56 U/L (5-85)
[2018-03-29] MEDS: Gabapentin 300 MG/6 ML Soln GT SCH ×3 (06:50→21:41)
[2018-03-29] MEDS: HydrALAZINE 25mg tab GT SCH ×3 (06:51→23:02)
[2018-03-29 06:53] LABS: CHOLESTEROL 83 MG/DL (< 200); FERRITIN 312 NG/ML (8-388); HDL CHOLESTEROL 23 MG/DL (40-60); PHOSPHORUS 2.1 MG/DL (2.5-4.9); TRIGLYCERIDES 155 MG/DL (30-150)
--- NOTE | 2018-03-29 07:32 | Pulmonolgy Critical Care Note ---
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, 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, 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, 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, 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 wound - Objective Last 24 Hour Vital Signs Date Time Temp Pulse Resp B/P (MAP) Pulse Ox O2 Delivery O2 Flow Rate FiO2 03/29/18 07:09 67 16 35 03/29/18 06:51 147/57 03/29/18 06:00 71 19 147/57 (87) 100 03/29/18 05:18 66 16 35 03/29/18 05:00 63 19 115/52 (73) 100 03/29/18 04:00 35 03/29/18 04:00 98.4 71 16 123/52 (75) 100 03/29/18 04:00 66 03/29/18 04:00 Mechanical Ventilator 03/29/18 03:18 61 16 35 03/29/18 03:00 63 19 111/52 (71) 100 03/29/18 02:00 66 19 134/41 (72) 99 03/29/18 01:20 66 16 35 03/29/18 01:00 65 19 106/49 (68) 99 03/29/18 00:00 98.6 75 16 141/64 (89) 100 03/29/18 00:00 Mechanical Ventilator 03/28/18 23:19 67 16 35 03/28/18 23:00 67 19 133/47 (75) 99 03/28/18 22:00 77 19 119/52 (74) 99 03/28/18 21:35 116/54 03/28/18 21:11 75 16 35 03/28/18 21:00 74 19 116/54 (74) 99 03/28/18 20:00 98.8 77 16 127/57 (80) 99 03/28/18 20:00 Mechanical Ventilator 03/28/18 20:00 68 03/28/18 20:00 35 03/28/18 19:16 70 16 35 03/28/18 19:00 70 19 119/51 (73) 99 03/28/18 18:00 60 19 112/49 (70) 99 03/28/18 17:19 81 16 35 03/28/18 17:00 98.8 71 16 133/58 (83) 99 03/28/18 16:11 35 03/28/18 16:00 71 16 105/48 (67) 99 03/28/18 16:00 Mechanical Ventilator 03/28/18 16:00 72 03/28/18 15:15 86 16 35 03/28/18 15:00 81 16 120/52 (74) 99 03/28/18 14:00 81 17 144/56 (85) 100 03/28/18 13:52 105/43 03/28/18 13:00 70 17 104/44 (64) 97 03/28/18 12:55 72 17 35 03/28/18 12:00 80 03/28/18 12:00 Mechanical Ventilator 03/28/18 12:00 99.5 67 16 104/44 (64) 100 03/28/18 11:01 35 03/28/18 11:00 67 16 104/44 (64) 100 03/28/18 10:49 68 16 35 03/28/18 10:00 99.2 71 16 97/42 (60) 100 03/28/18 09:50 99.2 03/28/18 09:07 79 115/46 03/28/18 09:00 82 16 115/46 (69) 100 03/28/18 08:48 73 16 45 03/28/18 08:00 89 03/28/18 08:00 100.1 76 16 110/43 (65) 100 03/28/18 08:00 Mechanical Ventilator 03/28/18 08:00 45 Status: sedated Condition: critical, grave Neck: full ROM Lungs: chest wall tender Heart: HR/BP stable Abdomen: soft, active bowel sounds Extremities: no C/C/E, edema Micro: Microbiology Date/Time Source Procedure Growth Status 03/27/18 20:00 Sputum Induced Gram Stain - Final Resulted 03/27/18 20:00 Sputum Induced Sputum Culture - Preliminary Resulted 03/27/18 18:16 Sputum Gram Stain - Final Resulted 03/27/18 18:16 Sputum Culture - Preliminary Gram Negative [place] Resulted 03/27/18 17:15 Nasal Nares Influenza Types A,B Antigen (JETHRO) - Final Complete 03/27/18 17:30 Urine,Clean Catch Urine Culture - Preliminary NO GROWTH Resulted 03/27/18 20:00 Sacral Wound Gram Stain - Final Resulted 03/27/18 20:00 Sacral Wound Wound Culture Pending Resulted 03/27/18 17:15 Rectum VRE Culture - Final NO VANCOMYCIN RESISTANT ENTEROCOCCUS ... Complete 03/27/18 17:15 Rectum - Final NO CARBAPENEM-RESISTANT ENTEROBACTERI... Complete Accucheck: 140 Critical Care - Subjective ROS Limited/Unobtainable: Yes ICU Day: 2 Condition: critical EKG Rhythm: Sinus Rhythm FI02: 35 Vent Support Breath Rate: 16 Vent Support Mode: AC Vent Tidal Volume: 500 Sputum Amount: Small PEEP: 5.0 PIP: 28 I&O: Intake and Output 03/28/18 03/29/18 19:00 07:00 Intake Total 410 ml 580 ml Output Total 905 ml 455 ml Balance -495 ml 125 ml Intake Free Water 110 ml IV Total 300 ml 580 ml Output Urine Total 905 ml 455 ml CXR: no change ET-Tube: 7.5 ET Position: 20 Labs: Laboratory Tests Test 03/28/18 12:30 03/29/18 05:10 Urine Random Sodium 32 mmol/L (20-110) White Blood Count 8.7 K/UL (4.8-10.8) Red Blood Count 3.40 M/UL (4.70-6.10) L Hemoglobin 9.6 G/DL (14.2-18.0) L Hematocrit 29.3 % (42.0-52.0) L Mean Corpuscular Volume 86 FL (80-99) Mean Corpuscular Hemoglobin 28.2 PG (27.0-31.0) Mean Corpuscular Hemoglobin Concent 32.8 G/DL (32.0-36.0) Red Cell Distribution Width 12.6 % (11.6-14.8) Platelet Count 201 K/UL (150-450) Mean Platelet Volume 8.1 FL (6.5-10.1) Neutrophils (%) (Auto) 75.4 % (45.0-75.0) H Lymphocytes (%) (Auto) 16.4 % (20.0-45.0) L Monocytes (%) (Auto) 5.2 % (1.0-10.0) Eosinophils (%) (Auto) 2.4 % (0.0-3.0) Basophils (%) (Auto) 0.6 % (0.0-2.0) Sodium Level 151 MMOL/L (136-145) H Potassium Level 3.3 MMOL/L (3.5-5.1) L Chloride Level 116 MMOL/L (98-107) H Carbon Dioxide Level 27 MMOL/L (21-32) Anion Gap 8 mmol/L (5-15) Blood Urea Nitrogen 58 mg/dL (7-18) H Creatinine 2.0 MG/DL (0.55-1.30) H Estimat Glomerular Filtration Rate mL/min (>60) Glucose Level 135 MG/DL (74-106) H Hemoglobin A1c 6.5 % (4.3-6.0) H Lactic Acid Level 0.90 mmol/L (0.4-2.0) Uric Acid 9.8 MG/DL (2.6-7.2) H Calcium Level 9.6 MG/DL (8.5-10.1) Phosphorus Level 2.1 MG/DL (2.5-4.9) L Magnesium Level 2.6 MG/DL (1.8-2.4) H Iron Level 40 ug/dL (50-175) L Total Iron Binding Capacity 141 ug/dL (250-450) L Percent Iron Saturation 28 % (15-50) Unsaturated Iron Binding 101 ug/dL (112-346) L Ferritin 312 NG/ML (8-388) Total Bilirubin 0.5 MG/DL (0.2-1.0) Gamma Glutamyl Transpeptidase 56 U/L (5-85) Aspartate Amino Transf (AST/SGOT) 27 U/L (15-37) Alanine Aminotransferase (ALT/SGPT) 31 U/L (12-78) Alkaline Phosphatase 80 U/L (46-116) Troponin I 0.049 ng/mL (0.000-0.056) Pro-B-Type Natriuretic Peptide 716 pg/mL (0-125) H Total Protein 7.2 G/DL (6.4-8.2) Albumin 2.3 G/DL (3.4-5.0) L Globulin 4.9 g/dL Albumin/Globulin Ratio 0.5 (1.0-2.7) L Triglycerides Level 155 MG/DL (30-150) H Cholesterol Level 83 MG/DL (< 200) LDL Cholesterol 46 mg/dL (<100) HDL Cholesterol 23 MG/DL (40-60) L Cholesterol/HDL Ratio 3.6 (3.3-4.4) Vitamin B12 Level Pending Folate Pending Thyroid Stimulating Hormone (TSH) 0.850 uiU/mL (0.358-3.740) Random Vancomycin Level 13.7 ug/mL Wang Guzman MD Mar 29, 2018 07:32
[2018-03-29] MEDS ORDERED: Vancomycin 750mg/NS 250ml IVPB ONE (08:30)
--- NOTE | 2018-03-29 08:48 | General Progress Note ---
Assessment/Plan Problem List: (1) ATN (acute tubular necrosis) ICD Codes: N17.0 - Acute kidney failure with tubular necrosis SNOMED: 83678340 (2) History of CVA (cerebrovascular accident) ICD Codes: Z86.73 - Personal history of transient ischemic attack (TIA), and cerebral infarction without residual deficits SNOMED: 676655904 (3) Diabetes ICD Codes: E11.9 - Type 2 diabetes mellitus without complications SNOMED: 12213408 (4) CHF (congestive heart failure) ICD Codes: I50.9 - Heart failure, unspecified SNOMED: 11910731 (5) HTN (hypertension) ICD Codes: I10 - Essential (primary) hypertension SNOMED: 45141436 (6) Acute respiratory failure ICD Codes: J96.00 - Acute respiratory failure, unspecified whether with hypoxia or hypercapnia SNOMED: 52462684 (7) PNA (pneumonia) ICD Codes: J18.9 - Pneumonia, unspecified organism SNOMED: 056968039 (8) Sepsis ICD Codes: A41.9 - Sepsis SNOMED: 83425790 Status: unchanged Assessment/Plan vent abx bp bs control cbc bmp am Subjective Constitutional: Reports: weakness Allergies: Coded Allergies: NO KNOWN DRUG ALLERGIES (Unverified Allergy, Unknown, 05/29/14) All Systems: reviewed and negative except above Subjective intubated sedated in icu Objective Last 24 Hour Vital Signs Date Time Temp Pulse Resp B/P (MAP) Pulse Ox O2 Delivery O2 Flow Rate FiO2 03/29/18 08:33 68 16 35 03/29/18 08:00 Mechanical Ventilator 03/29/18 08:00 98.2 71 16 140/56 (84) 100 03/29/18 08:00 35 03/29/18 07:09 67 16 35 03/29/18 07:00 71 19 143/61 (88) 100 03/29/18 06:51 147/57 03/29/18 06:00 71 19 147/57 (87) 100 03/29/18 05:18 66 16 35 03/29/18 05:00 63 19 115/52 (73) 100 03/29/18 04:00 35 03/29/18 04:00 98.4 71 16 123/52 (75) 100 03/29/18 04:00 66 03/29/18 04:00 Mechanical Ventilator 03/29/18 03:18 61 16 35 03/29/18 03:00 63 19 111/52 (71) 100 03/29/18 02:00 66 19 134/41 (72) 99 03/29/18 01:20 66 16 35 03/29/18 01:00 65 19 106/49 (68) 99 03/29/18 00:00 98.6 75 16 141/64 (89) 100 03/29/18 00:00 Mechanical Ventilator 03/28/18 23:19 67 16 35 03/28/18 23:00 67 19 133/47 (75) 99 03/28/18 22:00 77 19 119/52 (74) 99 03/28/18 21:35 116/54 03/28/18 21:11 75 16 35 03/28/18 21:00 74 19 116/54 (74) 99 03/28/18 20:00 98.8 77 16 127/57 (80) 99 03/28/18 20:00 Mechanical Ventilator 03/28/18 20:00 68 03/28/18 20:00 35 03/28/18 19:16 70 16 35 03/28/18 19:00 70 19 119/51 (73) 99 03/28/18 18:00 60 19 112/49 (70) 99 03/28/18 17:19 81 16 35 03/28/18 17:00 98.8 71 16 133/58 (83) 99 03/28/18 16:11 35 03/28/18 16:00 71 16 105/48 (67) 99 03/28/18 16:00 Mechanical Ventilator 03/28/18 16:00 72 03/28/18 15:15 86 16 35 03/28/18 15:00 81 16 120/52 (74) 99 03/28/18 14:00 81 17 144/56 (85) 100 03/28/18 13:52 105/43 03/28/18 13:00 70 17 104/44 (64) 97 03/28/18 12:55 72 17 35 03/28/18 12:00 80 03/28/18 12:00 Mechanical Ventilator 03/28/18 12:00 99.5 67 16 104/44 (64) 100 03/28/18 11:01 35 03/28/18 11:00 67 16 104/44 (64) 100 03/28/18 10:49 68 16 35 03/28/18 10:00 99.2 71 16 97/42 (60) 100 03/28/18 09:50 99.2 03/28/18 09:07 79 115/46 03/28/18 09:00 82 16 115/46 (69) 100 03/28/18 08:48 73 16 45 Intake and Output 03/28/18 03/29/18 19:00 07:00 Intake Total 410 ml 580 ml Output Total 905 ml 490 ml Balance -495 ml 90 ml Intake Free Water 110 ml IV Total 300 ml 580 ml Output Urine Total 905 ml 490 ml Laboratory Tests 03/28/18 12:30: Urine Random Sodium 32 03/29/18 05:10: White Blood Count 8.7, Red Blood Count 3.40L, Hemoglobin 9.6L, Hematocrit 29.3L , Mean Corpuscular Volume 86, Mean Corpuscular Hemoglobin 28.2, Mean Corpuscular Hemoglobin Concent 32.8, Red Cell Distribution Width 12.6, Platelet Count 201, Mean Platelet Volume 8.1, Neutrophils (%) (Auto) 75.4H, Lymphocytes ( %) (Auto) 16.4L, Monocytes (%) (Auto) 5.2, Eosinophils (%) (Auto) 2.4, Basophils (%) (Auto) 0.6, Sodium Level 151H, Potassium Level 3.3L, Chloride Level 116H, Carbon Dioxide Level 27, Anion Gap 8, Blood Urea Nitrogen 58H, Creatinine 2.0H, Estimat Glomerular Filtration Rate , Glucose Level 135H, Hemoglobin A1c 6.5H, Lactic Acid Level 0.90, Uric Acid 9.8H, Calcium Level 9.6, Phosphorus Level 2.1L, Magnesium Level 2.6H, Iron Level 40L, Total Iron Binding Capacity 141L, Percent Iron Saturation 28, Unsaturated Iron Binding 101L, Ferritin 312, Total Bilirubin 0.5, Gamma Glutamyl Transpeptidase 56, Aspartate Amino Transf (AST/SGOT) 27, Alanine Aminotransferase (ALT/SGPT) 31, Alkaline Phosphatase 80, Troponin I 0.049, Pro-B-Type Natriuretic Peptide 716H, Total Protein 7.2, Albumin 2.3L, Globulin 4.9, Albumin/Globulin Ratio 0.5L, Triglycerides Level 155H, Cholesterol Level 83, LDL Cholesterol 46, HDL Cholesterol 23L, Cholesterol/HDL Ratio 3.6, Vitamin B12 Level 656, Folate 75.2H , Thyroid Stimulating Hormone (TSH) 0.850, Random Vancomycin Level 13.7 03/29/18 07:30: Arterial Blood pH 7.489H, Arterial Blood Partial Pressure CO2 34.4L, Arterial Blood Partial Pressure O2 79.1, Arterial Blood HCO3 25.6, Arterial Blood Oxygen Saturation 95.9, Arterial Blood Base Excess 2.4H, Juan Carlos Test Positive Height (Feet): 5 Height (Inches): 10.00 Weight (Pounds): 157 General Appearance: lethargic EENT: normal ENT inspection Neck: normal alignment Cardiovascular: normal peripheral pulses, normal rate, regular rhythm Respiratory/Chest: chest wall non-tender, lungs clear, normal breath sounds Abdomen: normal bowel sounds, non tender, soft Extremities: normal inspection Edema: no edema noted Arm (L), no edema noted Arm (R), no edema noted Leg (L), no edema noted Leg (R), no edema noted Pedal (L), no edema noted Pedal (R), no edema noted Generalized Neurologic: motor weakness Skin: normal pigmentation, warm/dry Remberto Joe DO Mar 29, 2018 08:48
[2018-03-29] MEDS: Pantoprazole Inj IVP SCH (08:54)
[2018-03-29] MEDS: Azithromycin 250mg tab ORAL SCH (08:54)
[2018-03-29] MEDS: Heparin 5000 units/ml inj SUBQ SCH ×2 (08:56→21:43)
--- NOTE | 2018-03-29 10:45 | Diagnostic Imaging Report ---
EXAM: XR Chest, 1 View CLINICAL HISTORY: DYSPNEA TECHNIQUE: Frontal view of the chest. COMPARISON: Chest x-ray dated 03/27/18 FINDINGS: Lungs: Persistent consolidation in bilateral medial lung bases concerning for atelectasis versus pneumonia. Persistent prominent increased interstitial markings. Pleural space: Unremarkable. The costophrenic angles are sharp. No visible pneumothorax. Heart: Unremarkable. No cardiomegaly. Mediastinum: Unremarkable. Bones/joints: Unremarkable. Vasculature: Atherosclerotic calcifications are noted within the aortic arch. Tubes, lines and devices: Stable positioning of the endotracheal tube. EKG leads overlie the thorax. IMPRESSION: 1. Persistent consolidation in bilateral medial lung bases concerning for atelectasis versus pneumonia. 2. Persistent prominent increased interstitial markings. This is nonspecific but may suggest mild pulmonary vascular congestion or a mild interstitial pneumonitis.
--- NOTE | 2018-03-29 11:17 | Nephrology Progress Note ---
Assessment/Plan Problem List: (1) ATN (acute tubular necrosis) (2) Acute respiratory failure (3) Hypernatremia Assessment Acute Renal Failure- PreRenal Azotemia / Dehydration Sepsis / Low BP Pneumonia Elevated Troponin Anemia Proteinuria / HypoAlbuminemia Plan D5W Adjust BP meds urine studies monitor renal parameters Per orders Objective Objective Last 24 Hour Vital Signs Date Time Temp Pulse Resp B/P (MAP) Pulse Ox O2 Delivery O2 Flow Rate FiO2 03/29/18 10:53 71 18 35 03/29/18 10:00 68 19 114/62 (79) 100 03/29/18 09:00 71 19 143/61 (88) 100 03/29/18 08:55 70 125/50 03/29/18 08:33 68 16 35 03/29/18 08:00 Mechanical Ventilator 03/29/18 08:00 98.2 71 16 140/56 (84) 100 03/29/18 08:00 35 03/29/18 07:09 67 16 35 03/29/18 07:00 71 19 143/61 (88) 100 03/29/18 06:51 147/57 03/29/18 06:00 71 19 147/57 (87) 100 03/29/18 05:18 66 16 35 03/29/18 05:00 63 19 115/52 (73) 100 03/29/18 04:00 35 03/29/18 04:00 98.4 71 16 123/52 (75) 100 03/29/18 04:00 66 03/29/18 04:00 Mechanical Ventilator 03/29/18 03:18 61 16 35 03/29/18 03:00 63 19 111/52 (71) 100 03/29/18 02:00 66 19 134/41 (72) 99 03/29/18 01:20 66 16 35 03/29/18 01:00 65 19 106/49 (68) 99 03/29/18 00:00 98.6 75 16 141/64 (89) 100 03/29/18 00:00 Mechanical Ventilator 03/28/18 23:19 67 16 35 03/28/18 23:00 67 19 133/47 (75) 99 03/28/18 22:00 77 19 119/52 (74) 99 03/28/18 21:35 116/54 03/28/18 21:11 75 16 35 03/28/18 21:00 74 19 116/54 (74) 99 03/28/18 20:00 98.8 77 16 127/57 (80) 99 03/28/18 20:00 Mechanical Ventilator 03/28/18 20:00 68 03/28/18 20:00 35 03/28/18 19:16 70 16 35 03/28/18 19:00 70 19 119/51 (73) 99 03/28/18 18:00 60 19 112/49 (70) 99 03/28/18 17:19 81 16 35 03/28/18 17:00 98.8 71 16 133/58 (83) 99 03/28/18 16:11 35 03/28/18 16:00 71 16 105/48 (67) 99 03/28/18 16:00 Mechanical Ventilator 03/28/18 16:00 72 03/28/18 15:15 86 16 35 03/28/18 15:00 81 16 120/52 (74) 99 03/28/18 14:00 81 17 144/56 (85) 100 03/28/18 13:52 105/43 03/28/18 13:00 70 17 104/44 (64) 97 03/28/18 12:55 72 17 35 03/28/18 12:00 80 03/28/18 12:00 Mechanical Ventilator 03/28/18 12:00 99.5 67 16 104/44 (64) 100 Intake and Output 03/28/18 03/29/18 18:59 06:59 Intake Total 335 ml 655 ml Output Total 955 ml 505 ml Balance -620 ml 150 ml Intake Free Water 110 ml IV Total 225 ml 655 ml Output Urine Total 955 ml 505 ml Laboratory Tests 03/28/18 12:30: Urine Random Sodium 32 03/29/18 05:10: White Blood Count 8.7, Red Blood Count 3.40L, Hemoglobin 9.6L, Hematocrit 29.3L , Mean Corpuscular Volume 86, Mean Corpuscular Hemoglobin 28.2, Mean Corpuscular Hemoglobin Concent 32.8, Red Cell Distribution Width 12.6, Platelet Count 201, Mean Platelet Volume 8.1, Neutrophils (%) (Auto) 75.4H, Lymphocytes ( %) (Auto) 16.4L, Monocytes (%) (Auto) 5.2, Eosinophils (%) (Auto) 2.4, Basophils (%) (Auto) 0.6, Sodium Level 151H, Potassium Level 3.3L, Chloride Level 116H, Carbon Dioxide Level 27, Anion Gap 8, Blood Urea Nitrogen 58H, Creatinine 2.0H, Estimat Glomerular Filtration Rate , Glucose Level 135H, Hemoglobin A1c 6.5H, Lactic Acid Level 0.90, Uric Acid 9.8H, Calcium Level 9.6, Phosphorus Level 2.1L, Magnesium Level 2.6H, Iron Level 40L, Total Iron Binding Capacity 141L, Percent Iron Saturation 28, Unsaturated Iron Binding 101L, Ferritin 312, Total Bilirubin 0.5, Gamma Glutamyl Transpeptidase 56, Aspartate Amino Transf (AST/SGOT) 27, Alanine Aminotransferase (ALT/SGPT) 31, Alkaline Phosphatase 80, Troponin I 0.049, Pro-B-Type Natriuretic Peptide 716H, Total Protein 7.2, Albumin 2.3L, Globulin 4.9, Albumin/Globulin Ratio 0.5L, Triglycerides Level 155H, Cholesterol Level 83, LDL Cholesterol 46, HDL Cholesterol 23L, Cholesterol/HDL Ratio 3.6, Vitamin B12 Level 656, Folate 75.2H , Thyroid Stimulating Hormone (TSH) 0.850, Random Vancomycin Level 13.7 03/29/18 07:30: Arterial Blood pH 7.489H, Arterial Blood Partial Pressure CO2 34.4L, Arterial Blood Partial Pressure O2 79.1, Arterial Blood HCO3 25.6, Arterial Blood Oxygen Saturation 95.9, Arterial Blood Base Excess 2.4H, Juan Carlos Test Positive Height (Feet): 5 Height (Inches): 10.00 Weight (Pounds): 157 Hansel Kirkpatrick MD Mar 29, 2018 11:17
[2018-03-29] MEDS ORDERED: Potassium Phosphate 20 MM in NS 275 ML IV ONE (12:00)
--- NOTE | 2018-03-29 12:14 | Infectious Diseases Prog Note ---
Assessment/Plan Assessment/Plan Probable PNA - Probable Influenza 03/29 CXR: Persistent consolidation in bilateral medial lung bases concerning for atelectasis versus pneumonia. Persistent prominent increased interstitial markings. -CXR: Persistent right perihilar congestive change, left basilar atelectasis. -influenza sc neg Acute respiratory failure s/p intubation 03/28- likely combination of CHF and prob PNA Fever, improving Leukocytosis, SP DM2 HTN CAD/AZ HLD GERD CVA/TIA Chronic encephalopathy CHF Dementia renal disease dysphagia s/p G-tube SNF resident Plan: -Cont empiric IV Vancomycin and Cefepime d # 2 pending sp cx -Cont empiric Tamiflu and Azithromycin d# 2 for influenza and atypical coverage, respectively -f/u cx -Monitor CBC/CMP, temperatures -legionella ag urine -aspiration precautions -ICU/ETT care Subjective Allergies: Coded Allergies: NO KNOWN DRUG ALLERGIES (Unverified Allergy, Unknown, 05/29/14) Subjective on vent Objective Vital Signs Last 24 Hour Vital Signs Date Time Temp Pulse Resp B/P (MAP) Pulse Ox O2 Delivery O2 Flow Rate FiO2 03/29/18 11:00 74 16 137/48 (77) 97 03/29/18 10:53 71 18 35 03/29/18 10:00 68 19 114/62 (79) 100 03/29/18 09:00 71 19 143/61 (88) 100 03/29/18 08:55 70 125/50 03/29/18 08:33 68 16 35 03/29/18 08:00 68 03/29/18 08:00 Mechanical Ventilator 03/29/18 08:00 98.2 71 16 140/56 (84) 100 03/29/18 08:00 35 03/29/18 07:09 67 16 35 03/29/18 07:00 71 19 143/61 (88) 100 03/29/18 06:51 147/57 03/29/18 06:00 71 19 147/57 (87) 100 03/29/18 05:18 66 16 35 03/29/18 05:00 63 19 115/52 (73) 100 03/29/18 04:00 35 03/29/18 04:00 98.4 71 16 123/52 (75) 100 03/29/18 04:00 66 03/29/18 04:00 Mechanical Ventilator 03/29/18 03:18 61 16 35 03/29/18 03:00 63 19 111/52 (71) 100 03/29/18 02:00 66 19 134/41 (72) 99 03/29/18 01:20 66 16 35 03/29/18 01:00 65 19 106/49 (68) 99 03/29/18 00:00 98.6 75 16 141/64 (89) 100 03/29/18 00:00 Mechanical Ventilator 03/28/18 23:19 67 16 35 03/28/18 23:00 67 19 133/47 (75) 99 03/28/18 22:00 77 19 119/52 (74) 99 03/28/18 21:35 116/54 03/28/18 21:11 75 16 35 03/28/18 21:00 74 19 116/54 (74) 99 03/28/18 20:00 98.8 77 16 127/57 (80) 99 03/28/18 20:00 Mechanical Ventilator 03/28/18 20:00 68 03/28/18 20:00 35 03/28/18 19:16 70 16 35 03/28/18 19:00 70 19 119/51 (73) 99 03/28/18 18:00 60 19 112/49 (70) 99 03/28/18 17:19 81 16 35 03/28/18 17:00 98.8 71 16 133/58 (83) 99 03/28/18 16:11 35 03/28/18 16:00 71 16 105/48 (67) 99 03/28/18 16:00 Mechanical Ventilator 03/28/18 16:00 72 03/28/18 15:15 86 16 35 03/28/18 15:00 81 16 120/52 (74) 99 03/28/18 14:00 81 17 144/56 (85) 100 03/28/18 13:52 105/43 03/28/18 13:00 70 17 104/44 (64) 97 03/28/18 12:55 72 17 35 Height (Feet): 5 Height (Inches): 10.00 Weight (Pounds): 157 HEENT: anicteric Respiratory/Chest: no respiratory distress Cardiovascular: regular rhythm Abdomen: non distended Microbiology Date/Time Source Procedure Growth Status 03/27/18 17:15 Blood Blood Culture - Preliminary NO GROWTH AFTER 24 HOURS Resulted 03/27/18 17:15 Blood Blood Culture - Preliminary NO GROWTH AFTER 24 HOURS Resulted 03/27/18 20:00 Sputum Induced Gram Stain - Final Resulted 03/27/18 20:00 Sputum Induced Sputum Culture - Preliminary Resulted 03/27/18 18:16 Sputum Gram Stain - Final Resulted 03/27/18 18:16 Sputum Culture - Preliminary Gram Negative [place] Resulted 03/27/18 17:15 Nasal Nares MRSA Culture - Final NO METHICILLIN RESISTANT STAPH AUREUS... Complete 03/27/18 17:15 Nasal Nares Influenza Types A,B Antigen (JETHRO) - Final Complete 03/27/18 17:30 Urine,Clean Catch Urine Culture - Final NO GROWTH AFTER 48 HOURS Complete 03/27/18 20:00 Sacral Wound Gram Stain - Final Resulted 03/27/18 20:00 Sacral Wound Wound Culture Pending Resulted 03/27/18 17:15 Rectum VRE Culture - Final NO VANCOMYCIN RESISTANT ENTEROCOCCUS ... Complete 03/27/18 17:15 Rectum - Final NO CARBAPENEM-RESISTANT ENTEROBACTERI... Complete Laboratory Tests Test 03/28/18 12:30 03/29/18 05:10 03/29/18 07:30 Urine Random Sodium 32 mmol/L (20-110) White Blood Count 8.7 K/UL (4.8-10.8) Red Blood Count 3.40 M/UL (4.70-6.10) L Hemoglobin 9.6 G/DL (14.2-18.0) L Hematocrit 29.3 % (42.0-52.0) L Mean Corpuscular Volume 86 FL (80-99) Mean Corpuscular Hemoglobin 28.2 PG (27.0-31.0) Mean Corpuscular Hemoglobin Concent 32.8 G/DL (32.0-36.0) Red Cell Distribution Width 12.6 % (11.6-14.8) Platelet Count 201 K/UL (150-450) Mean Platelet Volume 8.1 FL (6.5-10.1) Neutrophils (%) (Auto) 75.4 % (45.0-75.0) H Lymphocytes (%) (Auto) 16.4 % (20.0-45.0) L Monocytes (%) (Auto) 5.2 % (1.0-10.0) Eosinophils (%) (Auto) 2.4 % (0.0-3.0) Basophils (%) (Auto) 0.6 % (0.0-2.0) Sodium Level 151 MMOL/L (136-145) H Potassium Level 3.3 MMOL/L (3.5-5.1) L Chloride Level 116 MMOL/L (98-107) H Carbon Dioxide Level 27 MMOL/L (21-32) Anion Gap 8 mmol/L (5-15) Blood Urea Nitrogen 58 mg/dL (7-18) H Creatinine 2.0 MG/DL (0.55-1.30) H Estimat Glomerular Filtration Rate mL/min (>60) Glucose Level 135 MG/DL (74-106) H Hemoglobin A1c 6.5 % (4.3-6.0) H Lactic Acid Level 0.90 mmol/L (0.4-2.0) Uric Acid 9.8 MG/DL (2.6-7.2) H Calcium Level 9.6 MG/DL (8.5-10.1) Phosphorus Level 2.1 MG/DL (2.5-4.9) L Magnesium Level 2.6 MG/DL (1.8-2.4) H Iron Level 40 ug/dL (50-175) L Total Iron Binding Capacity 141 ug/dL (250-450) L Percent Iron Saturation 28 % (15-50) Unsaturated Iron Binding 101 ug/dL (112-346) L Ferritin 312 NG/ML (8-388) Total Bilirubin 0.5 MG/DL (0.2-1.0) Gamma Glutamyl Transpeptidase 56 U/L (5-85) Aspartate Amino Transf (AST/SGOT) 27 U/L (15-37) Alanine Aminotransferase (ALT/SGPT) 31 U/L (12-78) Alkaline Phosphatase 80 U/L (46-116) Troponin I 0.049 ng/mL (0.000-0.056) Pro-B-Type Natriuretic Peptide 716 pg/mL (0-125) H Total Protein 7.2 G/DL (6.4-8.2) Albumin 2.3 G/DL (3.4-5.0) L Globulin 4.9 g/dL Albumin/Globulin Ratio 0.5 (1.0-2.7) L Triglycerides Level 155 MG/DL (30-150) H Cholesterol Level 83 MG/DL (< 200) LDL Cholesterol 46 mg/dL (<100) HDL Cholesterol 23 MG/DL (40-60) L Cholesterol/HDL Ratio 3.6 (3.3-4.4) Vitamin B12 Level 656 PG/ML (193-986) Folate 75.2 NG/ML (8.6-58.9) H Thyroid Stimulating Hormone (TSH) 0.850 uiU/mL (0.358-3.740) Random Vancomycin Level 13.7 ug/mL Arterial Blood pH 7.489 (7.350-7.450) Arterial Blood Partial Pressure CO2 34.4 mmHg (35.0-45.0) L Arterial Blood Partial Pressure O2 79.1 mmHg (75.0-100.0) Arterial Blood HCO3 25.6 mmol/L (22.0-26.0) Arterial Blood Oxygen Saturation 95.9 % (95-100) Arterial Blood Base Excess 2.4 (-2-2) H Juan Carlos Test Positive Current Medications Medications (Trade) Dose Ordered Sig/Dimas Route PRN Reason Start Time Stop Time Status Last Admin Dose Admin Acetaminophen (Tylenol) 650 mg Q4H PRN ORAL T>100.5 03/27/18 19:45 04/26/18 19:44 03/28/18 09:08 Albuterol/ Ipratropium (Albuterol/ Ipratropium) 3 ml Q4H PRN HHN Shortness of Breath 03/27/18 19:45 04/01/18 19:44 Amlodipine Besylate (Norvasc) 2.5 mg DAILY GT 03/29/18 09:00 04/27/18 08:59 03/29/18 08:55 Azithromycin (Zithromax) 500 mg DAILY ORAL 03/28/18 11:13 04/04/18 11:12 03/29/18 08:54 Cefepime HCl 1 gm/ Dextrose 55 ml @ 110 mls/hr Q24H IVPB 03/28/18 01:00 04/04/18 00:59 03/29/18 01:00 Dextrose 1,000 ml @ 150 mls/hr Q6H40M IV 03/29/18 07:30 04/28/18 07:29 03/29/18 07:49 Dextrose (Dextrose 50%) 25 ml Q30M PRN IV Hypoglycemia 03/27/18 20:15 04/26/18 20:05 Dextrose (Dextrose 50%) 50 ml Q30M PRN IV hypoglycemia 03/27/18 20:15 04/26/18 20:14 Gabapentin (Neurontin) 300 mg Q8HR GT 03/27/18 22:00 04/26/18 21:59 03/29/18 06:50 Heparin Sodium (Porcine) (Heparin 5000 units/ml) 5,000 units EVERY 12 HOURS SUBQ 03/27/18 21:00 04/26/18 20:59 03/29/18 08:56 Hydralazine HCl (Apresoline) 25 mg EVERY 8 HOURS GT 03/28/18 14:00 04/26/18 21:59 03/29/18 06:51 Insulin Aspart (NovoLOG) Q6HR SUBQ 03/28/18 18:00 04/26/18 20:59 03/29/18 06:51 Lorazepam (Ativan 2mg/ml 1ml) 2 mg Q2H PRN IV For Anxiety 03/27/18 21:45 04/03/18 21:44 03/27/18 21:54 Morphine Sulfate (Morphine Sulfate) 2 mg Q4H PRN IVP Moderate Pain (Pain Scale 4-6) 03/27/18 21:45 04/03/18 19:44 Morphine Sulfate (Morphine Sulfate) 4 mg Q4H PRN IVP Severe Pain (Pain Scale 7-10) 03/27/18 21:45 04/03/18 21:44 Nitroglycerin (Ntg) 0.4 mg Q5MIN X 3 DOSES PRN SL Prn Chest Pain 03/27/18 20:00 04/26/18 19:59 Ondansetron HCl (Zofran) 4 mg Q6H PRN IVP Nausea & Vomiting 03/27/18 19:45 04/26/18 19:44 Oseltamivir Phosphate (Tamiflu) 30 mg DAILY ORAL 03/28/18 13:00 04/02/18 12:59 03/29/18 08:56 Pantoprazole (Protonix) 40 mg DAILY IVP 03/28/18 14:00 04/27/18 13:59 03/29/18 08:54 Polyethylene Glycol (Miralax) 17 gm DAILYPRN PRN ORAL Constipation 03/27/18 19:45 04/26/18 19:44 Potassium Phosphate 20 mm/ Sodium Chloride 281.6667 ml @ 46.944 m... ONCE ONCE IV 03/29/18 12:00 03/29/18 17:59 Temazepam (Restoril) 15 mg HSPRN PRN ORAL Insomnia 03/27/18 21:00 04/03/18 20:59 Vancomycin HCl (Vanco rx to dose) 1 ea DAILY PRN MISC . 03/27/18 20:15 04/26/18 20:14 Mina Brandt MD Mar 29, 2018 12:14
[2018-03-29] MEDS ORDERED: 1/2 NS 1000ml IV ONE (16:35)
[2018-03-29] MEDS ORDERED: NS 275ml ONE (16:35)
[2018-03-29] MEDS ORDERED: Tubing IV Secondary IV ONE (17:23)
[2018-03-30] VITALS (24 sets, daily range): BP systolic 100–151; BP diastolic 43–63
[2018-03-30] MEDS: Cefepime 1gm/D5W 55ml IVPB SCH ×2 (01:00)
[2018-03-30] MEDS: HydrALAZINE 25mg tab GT SCH ×3 (06:00→22:08)
[2018-03-30 06:10] LABS: BASOPHILS % (AUTO) 0.6 % (0.0-2.0); EOSINOPHILS % (AUTO) 5.2 % (0.0-3.0); HEMATOCRIT 29.4 % (42.0-52.0); HEMOGLOBIN 9.6 G/DL (14.2-18.0); LYMPHOCYTES % (AUTO) 20.6 % (20.0-45.0); MEAN CORPUSCULAR VOLUME 86 FL (80-99); NEUTROPHILS % (AUTO) 67.6 % (45.0-75.0); PLATELET COUNT 204 K/UL (150-450); RED BLOOD COUNT 3.42 M/UL (4.70-6.10); RED CELL DISTRIBUTION WIDTH 12.8 % (11.6-14.8); WHITE BLOOD COUNT 7.3 K/UL (4.8-10.8)
[2018-03-30 06:42] LABS: ALANINE AMINOTRANSFERASE 34 U/L (12-78); ALBUMIN 2.1 G/DL (3.4-5.0); ALBUMIN/GLOBULIN RATIO 0.4 (1.0-2.7); ALKALINE PHOSPHATASE 82 U/L (46-116); ANION GAP 10 mmol/L (5-15); ASPARTATE AMINO TRANSFERASE 26 U/L (15-37); BILIRUBIN,TOTAL 0.4 MG/DL (0.2-1.0); BLOOD UREA NITROGEN 50 mg/dL (7-18); CALCIUM 9.3 MG/DL (8.5-10.1); CARBON DIOXIDE 24 MMOL/L (21-32); CHLORIDE 110 MMOL/L (98-107); CREATININE 1.9 MG/DL (0.55-1.30); POTASSIUM 3.6 MMOL/L (3.5-5.1); SODIUM 144 MMOL/L (136-145)
[2018-03-30] MEDS: Gabapentin 300 MG/6 ML Soln GT SCH ×3 (06:49→22:08)
[2018-03-30] MEDS: NovoLOG Insulin Flexpen SUBQ SCH ×4 (06:50→23:03)
[2018-03-30] MEDS: Azithromycin 250mg tab ORAL SCH (08:30)
[2018-03-30] MEDS: Pantoprazole Inj IVP SCH (08:30)
[2018-03-30] MEDS: Heparin 5000 units/ml inj SUBQ SCH ×2 (08:32→20:51)
--- NOTE | 2018-03-30 08:51 | Diagnostic Imaging Report ---
EXAM: XR Chest, 1 View CLINICAL HISTORY: DYSPNEA TECHNIQUE: Frontal view of the chest. COMPARISON: 03/29/18 FINDINGS/impression: Appropriately positioned endotracheal tube. Redemonstrated basilar atelectasis and consolidation
--- NOTE | 2018-03-30 09:02 | General Progress Note ---
Assessment/Plan Problem List: (1) ATN (acute tubular necrosis) ICD Codes: N17.0 - Acute kidney failure with tubular necrosis SNOMED: 36472928 (2) History of CVA (cerebrovascular accident) ICD Codes: Z86.73 - Personal history of transient ischemic attack (TIA), and cerebral infarction without residual deficits SNOMED: 049829966 (3) Diabetes ICD Codes: E11.9 - Type 2 diabetes mellitus without complications SNOMED: 26281784 (4) CHF (congestive heart failure) ICD Codes: I50.9 - Heart failure, unspecified SNOMED: 03634438 (5) HTN (hypertension) ICD Codes: I10 - Essential (primary) hypertension SNOMED: 96724032 (6) Acute respiratory failure ICD Codes: J96.00 - Acute respiratory failure, unspecified whether with hypoxia or hypercapnia SNOMED: 58316670 (7) PNA (pneumonia) ICD Codes: J18.9 - Pneumonia, unspecified organism SNOMED: 161269079 (8) Sepsis ICD Codes: A41.9 - Sepsis SNOMED: 22533970 Status: unchanged Assessment/Plan vent abx bp bs control cbc bmp am Subjective Constitutional: Reports: weakness Allergies: Coded Allergies: NO KNOWN DRUG ALLERGIES (Unverified Allergy, Unknown, 05/29/14) All Systems: reviewed and negative except above Subjective intubated sedated in icu Objective Last 24 Hour Vital Signs Date Time Temp Pulse Resp B/P (MAP) Pulse Ox O2 Delivery O2 Flow Rate FiO2 03/30/18 08:43 57 16 35 03/30/18 08:31 53 149/55 03/30/18 08:00 98.6 59 16 140/54 (82) 100 03/30/18 08:00 35 03/30/18 08:00 Mechanical Ventilator 03/30/18 07:07 56 16 35 03/30/18 07:00 58 16 149/55 (86) 100 03/30/18 06:00 54 16 134/48 (76) 100 03/30/18 05:00 54 16 139/63 (88) 100 03/30/18 04:40 58 16 35 03/30/18 04:00 55 03/30/18 04:00 Mechanical Ventilator 03/30/18 04:00 35 03/30/18 04:00 98.4 55 16 131/48 (75) 100 03/30/18 03:00 58 16 134/48 (76) 100 03/30/18 02:33 57 16 35 03/30/18 02:00 53 16 100/43 (62) 100 03/30/18 01:00 65 16 128/48 (74) 99 03/30/18 00:46 72 20 35 03/30/18 00:00 Mechanical Ventilator 03/30/18 00:00 60 03/30/18 00:00 98.1 59 16 115/45 (68) 100 03/30/18 00:00 35 03/29/18 23:02 133/49 03/29/18 23:00 65 16 121/48 (72) 99 03/29/18 22:46 73 23 35 03/29/18 22:00 66 16 133/49 (77) 100 03/29/18 21:04 68 17 35 03/29/18 21:00 61 16 122/47 (72) 100 03/29/18 20:00 35 03/29/18 20:00 67 03/29/18 20:00 Mechanical Ventilator 03/29/18 20:00 99.0 61 16 112/48 (69) 100 03/29/18 19:07 63 17 35 03/29/18 19:00 65 16 120/47 (71) 100 03/29/18 18:00 66 12 115/54 (74) 100 03/29/18 17:05 67 17 35 03/29/18 17:00 74 12 123/47 (72) 100 03/29/18 16:00 99.2 63 16 123/49 (73) 100 03/29/18 16:00 Mechanical Ventilator 03/29/18 16:00 35 03/29/18 16:00 67 03/29/18 15:00 67 16 123/49 (73) 98 03/29/18 14:38 63 16 35 03/29/18 14:00 66 16 123/48 (73) 98 03/29/18 14:00 113/47 03/29/18 13:16 63 16 35 03/29/18 13:00 66 16 115/48 (70) 98 03/29/18 12:00 98.8 63 16 113/47 (69) 100 03/29/18 12:00 63 03/29/18 12:00 35 03/29/18 12:00 Mechanical Ventilator 03/29/18 11:00 74 16 137/48 (77) 97 03/29/18 10:53 71 18 35 03/29/18 10:00 68 19 114/62 (79) 100 Intake and Output 03/29/18 03/30/18 19:00 07:00 Intake Total 2336.526 ml 2425 ml Output Total 445 ml 500 ml Balance 1891.526 ml 1925 ml Intake Free Water 100 ml IV Total 2166.526 ml 1855 ml Tube Feeding 170 ml 410 ml Other 60 ml Output Urine Total 445 ml 500 ml # Bowel Movements 1 2 Laboratory Tests 03/30/18 05:45: White Blood Count 7.3, Red Blood Count 3.42L, Hemoglobin 9.6L, Hematocrit 29.4L , Mean Corpuscular Volume 86, Mean Corpuscular Hemoglobin 28.1, Mean Corpuscular Hemoglobin Concent 32.6, Red Cell Distribution Width 12.8, Platelet Count 204, Mean Platelet Volume 8.1, Neutrophils (%) (Auto) 67.6, Lymphocytes (% ) (Auto) 20.6, Monocytes (%) (Auto) 6.0, Eosinophils (%) (Auto) 5.2H, Basophils (%) (Auto) 0.6, Sodium Level 144, Potassium Level 3.6, Chloride Level 110H, Carbon Dioxide Level 24, Anion Gap 10, Blood Urea Nitrogen 50H, Creatinine 1.9H , Estimat Glomerular Filtration Rate , Glucose Level 244#H, Uric Acid 8.1H, Calcium Level 9.3, Phosphorus Level 3.0, Magnesium Level 2.4, Total Bilirubin 0.4, Aspartate Amino Transf (AST/SGOT) 26, Alanine Aminotransferase (ALT/SGPT) 34, Alkaline Phosphatase 82, Troponin I 0.027, C-Reactive Protein, Quantitative 11.8H, Pro-B-Type Natriuretic Peptide 544H, Total Protein 6.8, Albumin 2.1L, Globulin 4.7, Albumin/Globulin Ratio 0.4L, Random Vancomycin Level 14.2 03/30/18 08:05: Arterial Blood pH 7.451H, Arterial Blood Partial Pressure CO2 32.7L, Arterial Blood Partial Pressure O2 91.6, Arterial Blood HCO3 22.3, Arterial Blood Oxygen Saturation 96.6, Arterial Blood Base Excess -1.2, Juan Carlos Test Positive Height (Feet): 5 Height (Inches): 10.00 Weight (Pounds): 158 General Appearance: lethargic EENT: normal ENT inspection Neck: normal alignment Cardiovascular: normal peripheral pulses, normal rate, regular rhythm Respiratory/Chest: chest wall non-tender, decreased breath sounds Abdomen: normal bowel sounds, non tender, soft Extremities: normal inspection Edema: no edema noted Arm (L), no edema noted Arm (R), no edema noted Leg (L), no edema noted Leg (R), no edema noted Pedal (L), no edema noted Pedal (R), no edema noted Generalized Neurologic: motor weakness Skin: normal pigmentation, warm/dry Remberto Joe DO Mar 30, 2018 09:02
[2018-03-30] MEDS: Vancomycin 750 MG in NS 275 ML IVPB SCH (10:09)
--- NOTE | 2018-03-30 10:10 | Nephrology Progress Note ---
Assessment/Plan Problem List: (1) ATN (acute tubular necrosis) (2) Acute respiratory failure (3) Hypernatremia Assessment Acute Renal Failure- PreRenal Azotemia / Dehydration Sepsis / Low BP Pneumonia Elevated Troponin Anemia Proteinuria / HypoAlbuminemia Plan D5W- down on rate Adjust BP meds urine studies monitor renal parameters Per orders Subjective ROS Limited/Unobtainable: Yes Objective Objective Last 24 Hour Vital Signs Date Time Temp Pulse Resp B/P (MAP) Pulse Ox O2 Delivery O2 Flow Rate FiO2 03/30/18 10:00 58 16 132/53 (79) 100 03/30/18 09:00 98.7 56 16 138/53 (81) 100 03/30/18 08:43 57 16 35 03/30/18 08:31 53 149/55 03/30/18 08:00 55 03/30/18 08:00 98.6 59 16 140/54 (82) 100 03/30/18 08:00 35 03/30/18 08:00 Mechanical Ventilator 03/30/18 07:07 56 16 35 03/30/18 07:00 58 16 149/55 (86) 100 03/30/18 06:00 54 16 134/48 (76) 100 03/30/18 05:00 54 16 139/63 (88) 100 03/30/18 04:40 58 16 35 03/30/18 04:00 55 03/30/18 04:00 Mechanical Ventilator 03/30/18 04:00 35 03/30/18 04:00 98.4 55 16 131/48 (75) 100 03/30/18 03:00 58 16 134/48 (76) 100 03/30/18 02:33 57 16 35 03/30/18 02:00 53 16 100/43 (62) 100 03/30/18 01:00 65 16 128/48 (74) 99 03/30/18 00:46 72 20 35 03/30/18 00:00 Mechanical Ventilator 03/30/18 00:00 60 03/30/18 00:00 98.1 59 16 115/45 (68) 100 03/30/18 00:00 35 03/29/18 23:02 133/49 03/29/18 23:00 65 16 121/48 (72) 99 03/29/18 22:46 73 23 35 03/29/18 22:00 66 16 133/49 (77) 100 03/29/18 21:04 68 17 35 03/29/18 21:00 61 16 122/47 (72) 100 03/29/18 20:00 35 03/29/18 20:00 67 03/29/18 20:00 Mechanical Ventilator 03/29/18 20:00 99.0 61 16 112/48 (69) 100 03/29/18 19:07 63 17 35 03/29/18 19:00 65 16 120/47 (71) 100 03/29/18 18:00 66 12 115/54 (74) 100 03/29/18 17:05 67 17 35 03/29/18 17:00 74 12 123/47 (72) 100 03/29/18 16:00 99.2 63 16 123/49 (73) 100 03/29/18 16:00 Mechanical Ventilator 03/29/18 16:00 35 03/29/18 16:00 67 03/29/18 15:00 67 16 123/49 (73) 98 03/29/18 14:38 63 16 35 03/29/18 14:00 66 16 123/48 (73) 98 03/29/18 14:00 113/47 03/29/18 13:16 63 16 35 03/29/18 13:00 66 16 115/48 (70) 98 03/29/18 12:00 98.8 63 16 113/47 (69) 100 03/29/18 12:00 63 03/29/18 12:00 35 03/29/18 12:00 Mechanical Ventilator 03/29/18 11:00 74 16 137/48 (77) 97 03/29/18 10:53 71 18 35 Intake and Output 03/29/18 03/30/18 19:00 07:00 Intake Total 2336.526 ml 2425 ml Output Total 445 ml 500 ml Balance 1891.526 ml 1925 ml Intake Free Water 100 ml IV Total 2166.526 ml 1855 ml Tube Feeding 170 ml 410 ml Other 60 ml Output Urine Total 445 ml 500 ml # Bowel Movements 1 2 Laboratory Tests 03/30/18 05:45: White Blood Count 7.3, Red Blood Count 3.42L, Hemoglobin 9.6L, Hematocrit 29.4L , Mean Corpuscular Volume 86, Mean Corpuscular Hemoglobin 28.1, Mean Corpuscular Hemoglobin Concent 32.6, Red Cell Distribution Width 12.8, Platelet Count 204, Mean Platelet Volume 8.1, Neutrophils (%) (Auto) 67.6, Lymphocytes (% ) (Auto) 20.6, Monocytes (%) (Auto) 6.0, Eosinophils (%) (Auto) 5.2H, Basophils (%) (Auto) 0.6, Sodium Level 144, Potassium Level 3.6, Chloride Level 110H, Carbon Dioxide Level 24, Anion Gap 10, Blood Urea Nitrogen 50H, Creatinine 1.9H , Estimat Glomerular Filtration Rate , Glucose Level 244#H, Uric Acid 8.1H, Calcium Level 9.3, Phosphorus Level 3.0, Magnesium Level 2.4, Total Bilirubin 0.4, Aspartate Amino Transf (AST/SGOT) 26, Alanine Aminotransferase (ALT/SGPT) 34, Alkaline Phosphatase 82, Troponin I 0.027, C-Reactive Protein, Quantitative 11.8H, Pro-B-Type Natriuretic Peptide 544H, Total Protein 6.8, Albumin 2.1L, Globulin 4.7, Albumin/Globulin Ratio 0.4L, Random Vancomycin Level 14.2 03/30/18 08:05: Arterial Blood pH 7.451H, Arterial Blood Partial Pressure CO2 32.7L, Arterial Blood Partial Pressure O2 91.6, Arterial Blood HCO3 22.3, Arterial Blood Oxygen Saturation 96.6, Arterial Blood Base Excess -1.2, Juan Carlos Test Positive Height (Feet): 5 Height (Inches): 10.00 Weight (Pounds): 158 EENT: other - vented Cardiovascular: bradycardia Respiratory/Chest: decreased breath sounds Abdomen: soft, distended Hansel Kirkpatrick MD Mar 30, 2018 10:10
[2018-03-31] VITALS (24 sets, daily range): BP systolic 115–147; BP diastolic 45–89
[2018-03-31] MEDS: Cefepime 1gm/D5W 55ml IVPB SCH ×2 (00:56)
[2018-03-31 05:25] LABS: BASOPHILS % (AUTO) 0.7 % (0.0-2.0); HEMATOCRIT 29.8 % (42.0-52.0); HEMOGLOBIN 9.9 G/DL (14.2-18.0); LYMPHOCYTES % (AUTO) 17.9 % (20.0-45.0); MEAN CORPUSCULAR VOLUME 85 FL (80-99); MONOCYTES % (AUTO) 5.9 % (1.0-10.0); NEUTROPHILS % (AUTO) 70.6 % (45.0-75.0); PLATELET COUNT 222 K/UL (150-450); RED BLOOD COUNT 3.51 M/UL (4.70-6.10); RED CELL DISTRIBUTION WIDTH 12.3 % (11.6-14.8); WHITE BLOOD COUNT 8.2 K/UL (4.8-10.8)
[2018-03-31 05:42] LABS: ANION GAP 9 mmol/L (5-15); BLOOD UREA NITROGEN 42 mg/dL (7-18); CALCIUM 9.2 MG/DL (8.5-10.1); CARBON DIOXIDE 24 MMOL/L (21-32); CHLORIDE 104 MMOL/L (98-107); CREATININE 1.7 MG/DL (0.55-1.30); POTASSIUM 3.9 MMOL/L (3.5-5.1); SODIUM 137 MMOL/L (136-145)
[2018-03-31] MEDS: NovoLOG Insulin Flexpen SUBQ SCH ×4 (05:45→23:47)
[2018-03-31] MEDS: Gabapentin 300 MG/6 ML Soln GT SCH ×3 (05:45→22:03)
[2018-03-31] MEDS: HydrALAZINE 25mg tab GT SCH ×3 (05:45→22:03)
[2018-03-31] MEDS: Azithromycin 250mg tab ORAL SCH (09:00)
[2018-03-31] MEDS: Heparin 5000 units/ml inj SUBQ SCH ×2 (09:00→20:47)
[2018-03-31] MEDS: Pantoprazole Inj IVP SCH (09:00)
[2018-03-31] MEDS: Vancomycin 750 MG in NS 275 ML IVPB SCH (10:01)
--- NOTE | 2018-03-31 10:06 | Pulmonolgy Critical Care Note ---
Critical Care - Asmt/Plan Problems: (1) Acute respiratory failure (2) Sepsis (3) Dementia (4) HTN (hypertension) (5) Diabetes (6) History of CVA (cerebrovascular accident) (7) Feeding by G-tube Respiratory: monitor respiratory rate, adjust FIO2, CXR, weaning trial Cardiac: continue to monitor HR/BP Renal: F/U I&O Infectious Disease: check cultures, continue antibiotics Gastrointestinal: continue feedings/current rate Endocrine: monitor blood sugar, continue sliding scale insulin Hematologic: transfuse if hgb<8.5 Neurologic: PRN Ativan, keep patient comfortable Affect: PRN ativan Time Spent (Minutes): 40 Notes Reviewed: cardio, 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, consultants, upper caserpropagation manager - Objective Last 24 Hour Vital Signs Date Time Temp Pulse Resp B/P (MAP) Pulse Ox O2 Delivery O2 Flow Rate FiO2 03/31/18 08:45 69 18 35 03/31/18 08:00 35 03/31/18 08:00 Mechanical Ventilator 03/31/18 08:00 98.5 57 16 128/55 (79) 100 03/31/18 08:00 67 03/31/18 07:00 59 16 131/57 (81) 100 03/31/18 06:33 75 20 35 03/31/18 06:00 58 16 131/58 (82) 100 03/31/18 05:45 147/62 03/31/18 05:18 62 16 35 03/31/18 05:00 61 16 147/62 (90) 100 03/31/18 04:00 Mechanical Ventilator 03/31/18 04:00 35 03/31/18 04:00 65 03/31/18 04:00 98.4 59 16 129/47 (74) 100 03/31/18 03:15 59 19 35 03/31/18 03:00 57 16 120/45 (70) 100 03/31/18 02:00 56 18 115/46 (69) 100 03/31/18 01:13 67 17 35 03/31/18 01:00 62 18 121/47 (71) 100 03/31/18 00:00 64 03/31/18 00:00 Mechanical Ventilator 03/31/18 00:00 98.9 64 16 124/45 (71) 100 03/31/18 00:00 35 03/30/18 23:00 70 19 138/53 (81) 100 03/30/18 22:48 64 18 35 03/30/18 22:08 135/52 03/30/18 22:00 72 19 138/51 (80) 100 03/30/18 21:15 65 17 35 03/30/18 21:00 63 17 135/59 (84) 100 03/30/18 20:00 Mechanical Ventilator 03/30/18 20:00 35 03/30/18 20:00 98.7 61 16 140/59 (86) 100 03/30/18 20:00 63 03/30/18 19:08 62 16 35 03/30/18 19:00 62 16 144/57 (86) 98 03/30/18 18:00 58 16 150/59 (89) 100 03/30/18 17:00 62 17 137/57 (83) 97 03/30/18 16:40 73 23 35 03/30/18 16:00 61 03/30/18 16:00 98.6 56 16 127/49 (75) 100 03/30/18 16:00 35 03/30/18 16:00 Mechanical Ventilator 03/30/18 15:00 63 18 136/52 (80) 99 03/30/18 14:35 65 21 35 03/30/18 14:00 61 18 136/56 (82) 99 03/30/18 13:25 136/55 03/30/18 13:00 55 17 136/55 (82) 100 03/30/18 12:37 60 16 35 03/30/18 12:00 35 03/30/18 12:00 Mechanical Ventilator 03/30/18 12:00 58 03/30/18 12:00 98.8 57 16 141/56 (84) 100 03/30/18 11:00 64 18 151/55 (87) 100 03/30/18 10:51 57 16 35 Status: sedated Condition: critical HEENT: atraumatic Lungs: clear Heart: HR/BP stable Abdomen: soft, feeding tube Extremities: no C/C/E Accucheck: 221 Critical Care - Subjective ROS Limited/Unobtainable: Yes ICU Day: 4 Intubation Day: 4 Condition: critical EKG Rhythm: Sinus Rhythm FI02: 35 Vent Support Breath Rate: 16 Vent Support Mode: AC Vent Tidal Volume: 500 Sputum Amount: Moderate PEEP: 5.0 PIP: 23 Tube Feeding Amount: 55 I&O: Intake and Output 03/30/18 03/31/18 19:00 07:00 Intake Total 1755.000 ml 1280 ml Output Total 1010 ml 885 ml Balance 745.000 ml 395 ml Intake Free Water 220 ml IV Total 925.000 ml 500 ml Tube Feeding 610 ml 660 ml Other 120 ml Output Urine Total 1010 ml 885 ml # Bowel Movements 3 1 CXR: bibasilar infiltrate, ET in good position. ET-Tube: 7.5 ET Position: 20 Labs: Laboratory Tests Test 03/31/18 04:25 White Blood Count 8.2 K/UL (4.8-10.8) Red Blood Count 3.51 M/UL (4.70-6.10) L Hemoglobin 9.9 G/DL (14.2-18.0) L Hematocrit 29.8 % (42.0-52.0) L Mean Corpuscular Volume 85 FL (80-99) Mean Corpuscular Hemoglobin 28.3 PG (27.0-31.0) Mean Corpuscular Hemoglobin Concent 33.3 G/DL (32.0-36.0) Red Cell Distribution Width 12.3 % (11.6-14.8) Platelet Count 222 K/UL (150-450) Mean Platelet Volume 8.3 FL (6.5-10.1) Neutrophils (%) (Auto) 70.6 % (45.0-75.0) Lymphocytes (%) (Auto) 17.9 % (20.0-45.0) L Monocytes (%) (Auto) 5.9 % (1.0-10.0) Eosinophils (%) (Auto) 5.0 % (0.0-3.0) H Basophils (%) (Auto) 0.7 % (0.0-2.0) Sodium Level 137 MMOL/L (136-145) Potassium Level 3.9 MMOL/L (3.5-5.1) Chloride Level 104 MMOL/L (98-107) Carbon Dioxide Level 24 MMOL/L (21-32) Anion Gap 9 mmol/L (5-15) Blood Urea Nitrogen 42 mg/dL (7-18) H Creatinine 1.7 MG/DL (0.55-1.30) H Estimat Glomerular Filtration Rate mL/min (>60) Glucose Level 216 MG/DL (74-106) H Calcium Level 9.2 MG/DL (8.5-10.1) Wang Guzman MD Mar 31, 2018 10:06
--- NOTE | 2018-03-31 11:00 | Infectious Diseases Prog Note ---
Assessment/Plan Assessment/Plan Probable PNA - Probable Influenza 03/29 CXR: Persistent consolidation in bilateral medial lung bases concerning for atelectasis versus pneumonia. Persistent prominent increased interstitial markings. sp cx: P, stuartii (R ance, amp, CTx, Cipro; otherwise S), GNR #2, GPC -CXR: Persistent right perihilar congestive change, left basilar atelectasis. -influenza sc neg -Bcx NTD Acute respiratory failure s/p intubation 03/28- likely combination of CHF and prob PNA Fever, improving Leukocytosis, SP Sacral decub- no signs of infection -wound cx MRSA , ESBL P. mirabilis (colonizers) DM2 HTN CAD/VA HLD GERD CVA/TIA Chronic encephalopathy CHF Dementia renal disease dysphagia s/p G-tube SNF resident Plan: -Cont empiric IV Vancomycin and Cefepime d # 4 pending sp cx -Cont empiric Tamiflu and Azithromycin d# 4/5 for influenza and atypical coverage, respectively -f/u cx -Monitor CBC/CMP, temperatures -f/u legionella ag urine -aspiration precautions -ICU/ETT care Subjective Allergies: Coded Allergies: NO KNOWN DRUG ALLERGIES (Unverified Allergy, Unknown, 05/29/14) Objective Vital Signs Last 24 Hour Vital Signs Date Time Temp Pulse Resp B/P (MAP) Pulse Ox O2 Delivery O2 Flow Rate FiO2 03/31/18 10:00 62 16 144/56 (85) 100 03/31/18 09:00 67 16 144/57 (86) 100 03/31/18 09:00 70 148/59 03/31/18 08:45 69 18 35 03/31/18 08:00 35 03/31/18 08:00 Mechanical Ventilator 03/31/18 08:00 98.5 57 16 128/55 (79) 100 03/31/18 08:00 67 03/31/18 07:00 59 16 131/57 (81) 100 03/31/18 06:33 75 20 35 03/31/18 06:00 58 16 131/58 (82) 100 03/31/18 05:45 147/62 03/31/18 05:18 62 16 35 03/31/18 05:00 61 16 147/62 (90) 100 03/31/18 04:00 Mechanical Ventilator 03/31/18 04:00 35 03/31/18 04:00 65 03/31/18 04:00 98.4 59 16 129/47 (74) 100 03/31/18 03:15 59 19 35 03/31/18 03:00 57 16 120/45 (70) 100 03/31/18 02:00 56 18 115/46 (69) 100 03/31/18 01:13 67 17 35 03/31/18 01:00 62 18 121/47 (71) 100 03/31/18 00:00 64 03/31/18 00:00 Mechanical Ventilator 03/31/18 00:00 98.9 64 16 124/45 (71) 100 03/31/18 00:00 35 03/30/18 23:00 70 19 138/53 (81) 100 03/30/18 22:48 64 18 35 03/30/18 22:08 135/52 03/30/18 22:00 72 19 138/51 (80) 100 03/30/18 21:15 65 17 35 03/30/18 21:00 63 17 135/59 (84) 100 03/30/18 20:00 Mechanical Ventilator 03/30/18 20:00 35 03/30/18 20:00 98.7 61 16 140/59 (86) 100 03/30/18 20:00 63 03/30/18 19:08 62 16 35 03/30/18 19:00 62 16 144/57 (86) 98 03/30/18 18:00 58 16 150/59 (89) 100 03/30/18 17:00 62 17 137/57 (83) 97 03/30/18 16:40 73 23 35 03/30/18 16:00 61 03/30/18 16:00 98.6 56 16 127/49 (75) 100 03/30/18 16:00 35 03/30/18 16:00 Mechanical Ventilator 03/30/18 15:00 63 18 136/52 (80) 99 03/30/18 14:35 65 21 35 03/30/18 14:00 61 18 136/56 (82) 99 03/30/18 13:25 136/55 03/30/18 13:00 55 17 136/55 (82) 100 03/30/18 12:37 60 16 35 03/30/18 12:00 35 03/30/18 12:00 Mechanical Ventilator 12/9/18 12:00 58 03/30/18 12:00 98.8 57 16 141/56 (84) 100 03/30/18 11:00 64 18 151/55 (87) 100 Height (Feet): 5 Height (Inches): 10.00 Weight (Pounds): 158 Objective General Appearance: no apparent distress, alert, non-toxic, cachetic, Chronically Ill HEENT: normocephalic, atraumati bilateral eye PERRL Neck: full range of motion, supple/symm/no masses Respiratory: chest non-tender, no respiratory distress, no retraction, no accessory muscle use, rhonchi Cardiovascular no edema, tachycardia, systolic murmur Gastrointestinal: normal bowel sounds, non tender, soft, non-distended, no guarding, no rebound, other - G-tube Musculoskeletal: normal range of motion, non-tender, other - atrophy diffusely Neurologic: alert, other - Unable to fully assess, grossly normal Skin: warm/dry, other - See detailed RN skin exam for DU Laboratory Tests Test 03/31/18 04:25 White Blood Count 8.2 K/UL (4.8-10.8) Red Blood Count 3.51 M/UL (4.70-6.10) L Hemoglobin 9.9 G/DL (14.2-18.0) L Hematocrit 29.8 % (42.0-52.0) L Mean Corpuscular Volume 85 FL (80-99) Mean Corpuscular Hemoglobin 28.3 PG (27.0-31.0) Mean Corpuscular Hemoglobin Concent 33.3 G/DL (32.0-36.0) Red Cell Distribution Width 12.3 % (11.6-14.8) Platelet Count 222 K/UL (150-450) Mean Platelet Volume 8.3 FL (6.5-10.1) Neutrophils (%) (Auto) 70.6 % (45.0-75.0) Lymphocytes (%) (Auto) 17.9 % (20.0-45.0) L Monocytes (%) (Auto) 5.9 % (1.0-10.0) Eosinophils (%) (Auto) 5.0 % (0.0-3.0) H Basophils (%) (Auto) 0.7 % (0.0-2.0) Sodium Level 137 MMOL/L (136-145) Potassium Level 3.9 MMOL/L (3.5-5.1) Chloride Level 104 MMOL/L (98-107) Carbon Dioxide Level 24 MMOL/L (21-32) Anion Gap 9 mmol/L (5-15) Blood Urea Nitrogen 42 mg/dL (7-18) H Creatinine 1.7 MG/DL (0.55-1.30) H Estimat Glomerular Filtration Rate mL/min (>60) Glucose Level 216 MG/DL (74-106) H Calcium Level 9.2 MG/DL (8.5-10.1) Current Medications Medications (Trade) Dose Ordered Sig/Dimas Route PRN Reason Start Time Stop Time Status Last Admin Dose Admin Acetaminophen (Tylenol) 650 mg Q4H PRN ORAL T>100.5 03/27/18 19:45 04/26/18 19:44 03/28/18 09:08 Albuterol/ Ipratropium (Albuterol/ Ipratropium) 3 ml Q4H PRN HHN Shortness of Breath 03/27/18 19:45 04/01/18 19:44 Amlodipine Besylate (Norvasc) 2.5 mg DAILY GT 03/29/18 09:00 04/27/18 08:59 03/31/18 09:00 Azithromycin (Zithromax) 500 mg DAILY ORAL 03/28/18 11:13 04/04/18 11:12 03/31/18 09:00 Cefepime HCl 1 gm/ Dextrose 55 ml @ 110 mls/hr Q24H IVPB 03/28/18 01:00 04/04/18 00:59 03/31/18 00:56 Dextrose 1,000 ml @ 50 mls/hr Q20H IV 03/30/18 09:00 04/29/18 08:59 03/30/18 23:50 Dextrose (Dextrose 50%) 25 ml Q30M PRN IV Hypoglycemia 03/27/18 20:15 04/26/18 20:05 Dextrose (Dextrose 50%) 50 ml Q30M PRN IV hypoglycemia 03/27/18 20:15 04/26/18 20:14 Gabapentin (Neurontin) 300 mg Q8HR GT 03/27/18 22:00 04/26/18 21:59 03/31/18 05:45 Heparin Sodium (Porcine) (Heparin 5000 units/ml) 5,000 units EVERY 12 HOURS SUBQ 03/27/18 21:00 04/26/18 20:59 03/31/18 09:00 Hydralazine HCl (Apresoline) 25 mg EVERY 8 HOURS GT 03/28/18 14:00 04/26/18 21:59 03/31/18 05:45 Insulin Aspart (NovoLOG) Q6HR SUBQ 03/28/18 18:00 04/26/18 20:59 03/31/18 05:45 Lorazepam (Ativan 2mg/ml 1ml) 2 mg Q2H PRN IV For Anxiety 03/27/18 21:45 04/03/18 21:44 03/27/18 21:54 Morphine Sulfate (Morphine Sulfate) 2 mg Q4H PRN IVP Moderate Pain (Pain Scale 4-6) 03/27/18 21:45 04/03/18 19:44 Morphine Sulfate (Morphine Sulfate) 4 mg Q4H PRN IVP Severe Pain (Pain Scale 7-10) 03/27/18 21:45 04/03/18 21:44 Nitroglycerin (Ntg) 0.4 mg Q5MIN X 3 DOSES PRN SL Prn Chest Pain 03/27/18 20:00 04/26/18 19:59 Ondansetron HCl (Zofran) 4 mg Q6H PRN IVP Nausea & Vomiting 03/27/18 19:45 04/26/18 19:44 Oseltamivir Phosphate (Tamiflu) 30 mg BID ORAL 03/31/18 09:00 04/02/18 12:59 03/31/18 09:00 Pantoprazole (Protonix) 40 mg DAILY IVP 03/28/18 14:00 04/27/18 13:59 03/31/18 09:00 Polyethylene Glycol (Miralax) 17 gm DAILYPRN PRN ORAL Constipation 03/27/18 19:45 04/26/18 19:44 Temazepam (Restoril) 15 mg HSPRN PRN ORAL Insomnia 03/27/18 21:00 04/03/18 20:59 Vancomycin HCl (Vanco rx to dose) 1 ea DAILY PRN MISC . 03/27/18 20:15 04/26/18 20:14 Vancomycin HCl 750 mg/Sodium Chloride 275 ml @ 183.333 mls/hr Q24H IVPB 03/30/18 10:00 04/04/18 09:59 03/31/18 10:01 Angela Kendall M.D. Mar 31, 2018 11:00
--- NOTE | 2018-03-31 11:09 | Cardiology Report ---
APPROVED REPORT EXAM: Two-dimensional and M-mode echocardiogram with Doppler and color Doppler. INDICATION Congestive Heart Failure M-Mode DIMENSIONS IVSd1.8 (0.7-1.1cm)Left Atrium (MM)3.1 (1.6-4.0cm) LVDd2.4 (3.5-5.6cm)Aortic Root3.0 (2.0-3.7cm) PWd1.4 (0.7-1.1cm)Aortic Cusp Exc.1.5 (1.5-2.0cm) LVDs1.6 (2.5-4.0cm) PWs1.6 cm Technically difficult study due to patient on ventilator. Study quality precludes accurate assessment of regional wall motion. Normal left ventricular chamber size, systolic function and wall motion to extent visualized. Left ventricular ejection fraction estimated to be 55-60 %. Mild left ventricular hypertrophy. Anterior Echo-free space, may be due to pericardial fat or effusion. All other cardiac chamber sizes are within normal limits. Mild focal aortic valve sclerosis with adequate cusp excursion. Thickened mitral valve leaflets with normal excursion. Mild mitral annulus and aortic root calcification. Pulmonic valve not well visualized. Normal tricuspid valve structure. Subcostal views not obtainable due to G-tube. A color flow and spectral Doppler study was performed and revealed: No aortic insufficiency. No mitral regurgitation. Mitral diastolic velocities suggest mild left ventricular diastolic dysfunction (Grade I). Trace tricuspid regurgitation. Tricuspid systolic velocities suggests peak right ventricular systolic pressure of 7 mmHg. No pulmonic regurgitation present.
--- NOTE | 2018-03-31 13:22 | Nephrology Progress Note ---
Assessment/Plan Problem List: (1) ATN (acute tubular necrosis) (2) Acute respiratory failure (3) Hypernatremia Assessment Acute Renal Failure- PreRenal Azotemia / Dehydration Sepsis / Low BP Pneumonia Elevated Troponin Anemia Proteinuria / HypoAlbuminemia Plan D5W- down on rate Adjust BP meds urine studies monitor renal parameters Per orders Subjective ROS Limited/Unobtainable: Yes Objective Objective Last 24 Hour Vital Signs Date Time Temp Pulse Resp B/P (MAP) Pulse Ox O2 Delivery O2 Flow Rate FiO2 03/31/18 12:00 98.3 57 16 124/56 (78) 100 03/31/18 12:00 64 03/31/18 12:00 35 03/31/18 12:00 Mechanical Ventilator 03/31/18 11:00 63 16 138/55 (82) 100 03/31/18 10:50 100 03/31/18 10:50 69 21 35 03/31/18 10:00 62 16 144/56 (85) 100 03/31/18 09:00 67 16 144/57 (86) 100 03/31/18 09:00 70 148/59 03/31/18 08:45 69 18 35 03/31/18 08:00 35 03/31/18 08:00 Mechanical Ventilator 03/31/18 08:00 98.5 57 16 128/55 (79) 100 03/31/18 08:00 67 03/31/18 07:00 59 16 131/57 (81) 100 03/31/18 06:33 75 20 35 03/31/18 06:00 58 16 131/58 (82) 100 03/31/18 05:45 147/62 03/31/18 05:18 62 16 35 03/31/18 05:00 61 16 147/62 (90) 100 03/31/18 04:00 Mechanical Ventilator 03/31/18 04:00 35 03/31/18 04:00 65 03/31/18 04:00 98.4 59 16 129/47 (74) 100 03/31/18 03:15 59 19 35 03/31/18 03:00 57 16 120/45 (70) 100 03/31/18 02:00 56 18 115/46 (69) 100 03/31/18 01:13 67 17 35 03/31/18 01:00 62 18 121/47 (71) 100 03/31/18 00:00 64 03/31/18 00:00 Mechanical Ventilator 03/31/18 00:00 98.9 64 16 124/45 (71) 100 03/31/18 00:00 35 03/30/18 23:00 70 19 138/53 (81) 100 03/30/18 22:48 64 18 35 03/30/18 22:08 135/52 03/30/18 22:00 72 19 138/51 (80) 100 03/30/18 21:15 65 17 35 03/30/18 21:00 63 17 135/59 (84) 100 03/30/18 20:00 Mechanical Ventilator 03/30/18 20:00 35 03/30/18 20:00 98.7 61 16 140/59 (86) 100 03/30/18 20:00 63 03/30/18 19:08 62 16 35 03/30/18 19:00 62 16 144/57 (86) 98 03/30/18 18:00 58 16 150/59 (89) 100 03/30/18 17:00 62 17 137/57 (83) 97 03/30/18 16:40 73 23 35 03/30/18 16:00 61 03/30/18 16:00 98.6 56 16 127/49 (75) 100 03/30/18 16:00 35 03/30/18 16:00 Mechanical Ventilator 03/30/18 15:00 63 18 136/52 (80) 99 03/30/18 14:35 65 21 35 03/30/18 14:00 61 18 136/56 (82) 99 03/30/18 13:25 136/55 Intake and Output 03/30/18 03/31/18 19:00 07:00 Intake Total 1755.000 ml 1280 ml Output Total 1010 ml 885 ml Balance 745.000 ml 395 ml Intake Free Water 220 ml IV Total 925.000 ml 500 ml Tube Feeding 610 ml 660 ml Other 120 ml Output Urine Total 1010 ml 885 ml # Bowel Movements 3 1 Laboratory Tests 03/31/18 04:25: White Blood Count 8.2, Red Blood Count 3.51L, Hemoglobin 9.9L, Hematocrit 29.8L , Mean Corpuscular Volume 85, Mean Corpuscular Hemoglobin 28.3, Mean Corpuscular Hemoglobin Concent 33.3, Red Cell Distribution Width 12.3, Platelet Count 222, Mean Platelet Volume 8.3, Neutrophils (%) (Auto) 70.6, Lymphocytes (% ) (Auto) 17.9L, Monocytes (%) (Auto) 5.9, Eosinophils (%) (Auto) 5.0H, Basophils (%) (Auto) 0.7, Sodium Level 137, Potassium Level 3.9, Chloride Level 104, Carbon Dioxide Level 24, Anion Gap 9, Blood Urea Nitrogen 42H, Creatinine 1.7H, Estimat Glomerular Filtration Rate , Glucose Level 216H, Calcium Level 9.2 Height (Feet): 5 Height (Inches): 10.00 Weight (Pounds): 158 General Appearance: no apparent distress EENT: other - on Vent Cardiovascular: bradycardia Respiratory/Chest: decreased breath sounds Abdomen: soft Hansel Kirkpatrick MD Mar 31, 2018 13:22
--- NOTE | 2018-03-31 14:52 | General Progress Note ---
Assessment/Plan Problem List: (1) ATN (acute tubular necrosis) ICD Codes: N17.0 - Acute kidney failure with tubular necrosis SNOMED: 30018725 (2) History of CVA (cerebrovascular accident) ICD Codes: Z86.73 - Personal history of transient ischemic attack (TIA), and cerebral infarction without residual deficits SNOMED: 239146885 (3) Diabetes ICD Codes: E11.9 - Type 2 diabetes mellitus without complications SNOMED: 73751898 (4) CHF (congestive heart failure) ICD Codes: I50.9 - Heart failure, unspecified SNOMED: 15241008 (5) HTN (hypertension) ICD Codes: I10 - Essential (primary) hypertension SNOMED: 32810765 (6) Acute respiratory failure ICD Codes: J96.00 - Acute respiratory failure, unspecified whether with hypoxia or hypercapnia SNOMED: 82985634 (7) PNA (pneumonia) ICD Codes: J18.9 - Pneumonia, unspecified organism SNOMED: 743131810 (8) Sepsis ICD Codes: A41.9 - Sepsis SNOMED: 29302159 Status: unchanged Assessment/Plan vent abx bp bs control cbc bmp am Subjective Allergies: Coded Allergies: NO KNOWN DRUG ALLERGIES (Unverified Allergy, Unknown, 05/29/14) All Systems: reviewed and negative except above Subjective intubated sedated in icu Objective Last 24 Hour Vital Signs Date Time Temp Pulse Resp B/P (MAP) Pulse Ox O2 Delivery O2 Flow Rate FiO2 03/31/18 14:08 131/63 03/31/18 14:00 57 16 131/60 (83) 100 03/31/18 13:00 58 16 130/60 (83) 100 03/31/18 12:31 66 20 35 03/31/18 12:00 98.3 57 16 124/56 (78) 100 03/31/18 12:00 64 03/31/18 12:00 35 03/31/18 12:00 Mechanical Ventilator 03/31/18 11:00 63 16 138/55 (82) 100 03/31/18 10:50 100 03/31/18 10:50 69 21 35 03/31/18 10:00 62 16 144/56 (85) 100 03/31/18 09:00 67 16 144/57 (86) 100 03/31/18 09:00 70 148/59 03/31/18 08:45 69 18 35 03/31/18 08:00 35 03/31/18 08:00 Mechanical Ventilator 03/31/18 08:00 98.5 57 16 128/55 (79) 100 03/31/18 08:00 67 03/31/18 07:00 59 16 131/57 (81) 100 03/31/18 06:33 75 20 35 03/31/18 06:00 58 16 131/58 (82) 100 03/31/18 05:45 147/62 03/31/18 05:18 62 16 35 03/31/18 05:00 61 16 147/62 (90) 100 03/31/18 04:00 Mechanical Ventilator 03/31/18 04:00 35 03/31/18 04:00 65 03/31/18 04:00 98.4 59 16 129/47 (74) 100 03/31/18 03:15 59 19 35 03/31/18 03:00 57 16 120/45 (70) 100 03/31/18 02:00 56 18 115/46 (69) 100 03/31/18 01:13 67 17 35 03/31/18 01:00 62 18 121/47 (71) 100 03/31/18 00:00 64 03/31/18 00:00 Mechanical Ventilator 03/31/18 00:00 98.9 64 16 124/45 (71) 100 03/31/18 00:00 35 03/30/18 23:00 70 19 138/53 (81) 100 03/30/18 22:48 64 18 35 03/30/18 22:08 135/52 03/30/18 22:00 72 19 138/51 (80) 100 03/30/18 21:15 65 17 35 03/30/18 21:00 63 17 135/59 (84) 100 03/30/18 20:00 Mechanical Ventilator 03/30/18 20:00 35 03/30/18 20:00 98.7 61 16 140/59 (86) 100 03/30/18 20:00 63 03/30/18 19:08 62 16 35 03/30/18 19:00 62 16 144/57 (86) 98 03/30/18 18:00 58 16 150/59 (89) 100 03/30/18 17:00 62 17 137/57 (83) 97 03/30/18 16:40 73 23 35 03/30/18 16:00 61 03/30/18 16:00 98.6 56 16 127/49 (75) 100 03/30/18 16:00 35 03/30/18 16:00 Mechanical Ventilator 03/30/18 15:00 63 18 136/52 (80) 99 Intake and Output 03/30/18 03/31/18 19:00 07:00 Intake Total 1755.000 ml 1280 ml Output Total 1010 ml 885 ml Balance 745.000 ml 395 ml Intake Free Water 220 ml IV Total 925.000 ml 500 ml Tube Feeding 610 ml 660 ml Other 120 ml Output Urine Total 1010 ml 885 ml # Bowel Movements 3 1 Laboratory Tests 03/31/18 04:25: White Blood Count 8.2, Red Blood Count 3.51L, Hemoglobin 9.9L, Hematocrit 29.8L , Mean Corpuscular Volume 85, Mean Corpuscular Hemoglobin 28.3, Mean Corpuscular Hemoglobin Concent 33.3, Red Cell Distribution Width 12.3, Platelet Count 222, Mean Platelet Volume 8.3, Neutrophils (%) (Auto) 70.6, Lymphocytes (% ) (Auto) 17.9L, Monocytes (%) (Auto) 5.9, Eosinophils (%) (Auto) 5.0H, Basophils (%) (Auto) 0.7, Sodium Level 137, Potassium Level 3.9, Chloride Level 104, Carbon Dioxide Level 24, Anion Gap 9, Blood Urea Nitrogen 42H, Creatinine 1.7H, Estimat Glomerular Filtration Rate , Glucose Level 216H, Calcium Level 9.2 Height (Feet): 5 Height (Inches): 10.00 Weight (Pounds): 158 General Appearance: lethargic EENT: normal ENT inspection Neck: normal alignment Cardiovascular: normal peripheral pulses, normal rate, regular rhythm Respiratory/Chest: chest wall non-tender, lungs clear, normal breath sounds Abdomen: normal bowel sounds, non tender, soft Extremities: normal inspection Edema: 1+ Arm (L), 1+ Arm (R), 1+ Leg (L), 1+ Leg (R), 1+ Pedal (L), 1+ Pedal ( R), 1+ Generalized Neurologic: motor weakness Skin: normal pigmentation, warm/dry Remberto Joe DO Mar 31, 2018 14:52
[2018-04-01] VITALS (24 sets, daily range): BP systolic 105–147; BP diastolic 43–57
[2018-04-01] MEDS: Cefepime 1gm/D5W 55ml IVPB SCH ×2 (01:20)
[2018-04-01 05:05] LABS: BASOPHILS % (AUTO) 0.9 % (0.0-2.0); EOSINOPHILS % (AUTO) 4.5 % (0.0-3.0); HEMATOCRIT 29.8 % (42.0-52.0); LYMPHOCYTES % (AUTO) 18.1 % (20.0-45.0); MEAN CORPUSCULAR VOLUME 84 FL (80-99); MONOCYTES % (AUTO) 5.8 % (1.0-10.0); NEUTROPHILS % (AUTO) 70.6 % (45.0-75.0); PLATELET COUNT 245 K/UL (150-450); RED BLOOD COUNT 3.54 M/UL (4.70-6.10); RED CELL DISTRIBUTION WIDTH 12.5 % (11.6-14.8); WHITE BLOOD COUNT 9.2 K/UL (4.8-10.8)
[2018-04-01] MEDS: Gabapentin 300 MG/6 ML Soln GT SCH ×3 (05:28→21:35)
[2018-04-01] MEDS: HydrALAZINE 25mg tab GT SCH ×3 (05:28→21:35)
[2018-04-01] MEDS: NovoLOG Insulin Flexpen SUBQ SCH ×4 (05:29→23:52)
[2018-04-01 05:38] LABS: ALANINE AMINOTRANSFERASE 30 U/L (12-78); ALBUMIN 2.2 G/DL (3.4-5.0); ALBUMIN/GLOBULIN RATIO 0.4 (1.0-2.7); ALKALINE PHOSPHATASE 92 U/L (46-116); ANION GAP 9 mmol/L (5-15); ASPARTATE AMINO TRANSFERASE 26 U/L (15-37); BILIRUBIN,TOTAL 0.3 MG/DL (0.2-1.0); BLOOD UREA NITROGEN 40 mg/dL (7-18); CALCIUM 9.1 MG/DL (8.5-10.1); CARBON DIOXIDE 25 MMOL/L (21-32); CHLORIDE 102 MMOL/L (98-107); CREATININE 1.6 MG/DL (0.55-1.30); PHOSPHORUS 2.8 MG/DL (2.5-4.9); POTASSIUM 3.8 MMOL/L (3.5-5.1); SODIUM 136 MMOL/L (136-145)
[2018-04-01] MEDS: Azithromycin 250mg tab ORAL SCH (09:05)
[2018-04-01] MEDS: Pantoprazole Inj IVP SCH (09:05)
[2018-04-01] MEDS: Vancomycin 750 MG in NS 275 ML IVPB SCH (09:05)
[2018-04-01] MEDS: Heparin 5000 units/ml inj SUBQ SCH ×2 (09:07→20:06)
--- NOTE | 2018-04-01 09:19 | Pulmonolgy Critical Care Note ---
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, 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, 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 - Objective Last 24 Hour Vital Signs Date Time Temp Pulse Resp B/P (MAP) Pulse Ox O2 Delivery O2 Flow Rate FiO2 04/01/18 08:31 66 27 35 04/01/18 08:30 100 04/01/18 08:20 51 105/43 04/01/18 08:00 68 22 105/43 (63) 100 04/01/18 08:00 35 04/01/18 08:00 57 04/01/18 08:00 Mechanical Ventilator 04/01/18 07:00 58 16 144/49 (80) 100 04/01/18 06:55 59 16 35 04/01/18 06:00 53 15 120/46 (70) 100 04/01/18 05:28 163/52 04/01/18 05:20 56 15 35 04/01/18 05:00 53 16 123/48 (73) 100 04/01/18 04:00 99.0 58 16 142/52 (82) 100 04/01/18 04:00 Mechanical Ventilator 04/01/18 04:00 35 04/01/18 04:00 59 04/01/18 03:25 54 16 35 04/01/18 03:00 57 16 146/51 (82) 100 04/01/18 02:00 59 16 143/50 (81) 100 04/01/18 01:25 66 16 35 04/01/18 01:00 66 16 141/56 (84) 100 04/01/18 00:00 99.1 63 16 133/56 (81) 100 04/01/18 00:00 Mechanical Ventilator 04/01/18 00:00 67 03/31/18 23:12 71 22 35 03/31/18 23:00 70 16 141/65 (90) 100 03/31/18 22:03 141/54 03/31/18 22:00 64 16 141/54 (83) 100 03/31/18 21:26 66 18 35 03/31/18 21:00 75 15 130/89 (103) 100 03/31/18 20:00 Mechanical Ventilator 03/31/18 20:00 35 03/31/18 20:00 62 03/31/18 20:00 98.9 63 16 130/89 (103) 100 03/31/18 19:13 61 16 35 03/31/18 19:00 60 16 133/62 (85) 100 03/31/18 18:00 63 16 130/60 (83) 100 03/31/18 17:24 68 22 35 03/31/18 17:00 62 16 133/62 (85) 100 03/31/18 16:00 Mechanical Ventilator 03/31/18 16:00 35 03/31/18 16:00 67 03/31/18 16:00 98.4 60 16 122/55 (77) 100 03/31/18 15:07 67 18 35 03/31/18 15:00 57 16 128/60 (82) 100 03/31/18 14:08 131/63 03/31/18 14:00 57 16 131/60 (83) 100 03/31/18 13:00 58 16 130/60 (83) 100 03/31/18 12:31 66 20 35 03/31/18 12:00 98.3 57 16 124/56 (78) 100 03/31/18 12:00 64 03/31/18 12:00 35 03/31/18 12:00 Mechanical Ventilator 03/31/18 11:00 63 16 138/55 (82) 100 03/31/18 10:50 100 03/31/18 10:50 69 21 35 03/31/18 10:00 62 16 144/56 (85) 100 Status: awake Condition: critical HEENT: atraumatic Lungs: rales, rhonchi Heart: HR/BP stable Abdomen: soft, active bowel sounds, feeding tube Extremities: edema Accucheck: 191 Critical Care - Subjective ROS Limited/Unobtainable: Yes ICU Day: 5 Intubation Day: 5 Interval Events: afebrile, still has lots of secretions, Condition: critical EKG Rhythm: Sinus Bradycardia FI02: 35 Vent Support Breath Rate: 16 Vent Support Mode: CPAP Vent Tidal Volume: 500 Sputum Amount: Small PEEP: 5.0 PIP: 14 Tube Feeding Amount: 55 I&O: Intake and Output 03/31/18 04/01/18 19:00 07:00 Intake Total 1155 ml 1435 ml Output Total 630 ml 1065 ml Balance 525 ml 370 ml IV Total 550 ml 655 ml Tube Feeding 605 ml 660 ml Other 120 ml Output Urine Total 630 ml 1065 ml # Bowel Movements 2 CXR: ET in good position ET-Tube: 7.5 ET Position: 20 Labs: Laboratory Tests Test 04/01/18 04:00 04/01/18 04:10 04/01/18 07:54 Urine Legionella Antigen Pending White Blood Count 9.2 K/UL (4.8-10.8) Red Blood Count 3.54 M/UL (4.70-6.10) L Hemoglobin 10.0 G/DL (14.2-18.0) L Hematocrit 29.8 % (42.0-52.0) L Mean Corpuscular Volume 84 FL (80-99) Mean Corpuscular Hemoglobin 28.4 PG (27.0-31.0) Mean Corpuscular Hemoglobin Concent 33.7 G/DL (32.0-36.0) Red Cell Distribution Width 12.5 % (11.6-14.8) Platelet Count 245 K/UL (150-450) Mean Platelet Volume 8.7 FL (6.5-10.1) Neutrophils (%) (Auto) 70.6 % (45.0-75.0) Lymphocytes (%) (Auto) 18.1 % (20.0-45.0) L Monocytes (%) (Auto) 5.8 % (1.0-10.0) Eosinophils (%) (Auto) 4.5 % (0.0-3.0) H Basophils (%) (Auto) 0.9 % (0.0-2.0) Sodium Level 136 MMOL/L (136-145) Potassium Level 3.8 MMOL/L (3.5-5.1) Chloride Level 102 MMOL/L (98-107) Carbon Dioxide Level 25 MMOL/L (21-32) Anion Gap 9 mmol/L (5-15) Blood Urea Nitrogen 40 mg/dL (7-18) H Creatinine 1.6 MG/DL (0.55-1.30) H Estimat Glomerular Filtration Rate mL/min (>60) Glucose Level 199 MG/DL (74-106) H Calcium Level 9.1 MG/DL (8.5-10.1) Phosphorus Level 2.8 MG/DL (2.5-4.9) Magnesium Level 2.3 MG/DL (1.8-2.4) Total Bilirubin 0.3 MG/DL (0.2-1.0) Aspartate Amino Transf (AST/SGOT) 26 U/L (15-37) Alanine Aminotransferase (ALT/SGPT) 30 U/L (12-78) Alkaline Phosphatase 92 U/L (46-116) Total Protein 7.1 G/DL (6.4-8.2) Albumin 2.2 G/DL (3.4-5.0) L Globulin 4.9 g/dL Albumin/Globulin Ratio 0.4 (1.0-2.7) L Arterial Blood pH 7.450 (7.350-7.450) Arterial Blood Partial Pressure CO2 35.2 mmHg (35.0-45.0) Arterial Blood Partial Pressure O2 112.0 mmHg (75.0-100.0) H Arterial Blood HCO3 23.9 mmol/L (22.0-26.0) Arterial Blood Oxygen Saturation 97.8 % (95-100) Arterial Blood Base Excess 0.2 (-2-2) Juan Carlos Test Positive Wang Guzman MD Apr 01, 2018 09:19
[2018-04-01] MEDS ORDERED: Lidocaine 1% Plain 30 ml INJ PRN (09:30)
[2018-04-01] MEDS ORDERED: Heparin 2000 units/Ns 1000ml INJ PRN (09:30)
--- NOTE | 2018-04-01 09:31 | Infectious Diseases Prog Note ---
Assessment/Plan Assessment/Plan Probable PNA - Probable Influenza 03/29 CXR: Persistent consolidation in bilateral medial lung bases concerning for atelectasis versus pneumonia. Persistent prominent increased interstitial markings. sp cxb #1: P, stuartii (R ance, amp, CTx, Cipro; otherwise S), P. mirabalis (Prob ESBL; S Zosyn) #2 PsA (bailey S), P. stuarti, P. mirabilis -CXR: Persistent right perihilar congestive change, left basilar atelectasis. -influenza sc neg -Bcx NTD Acute respiratory failure s/p intubation 03/28- likely combination of CHF and prob PNA Fever, SP Leukocytosis, SP Sacral decub- no signs of infection -wound cx MRSA , ESBL P. mirabilis (colonizers) DM2 HTN CAD/MA HLD GERD CVA/TIA Chronic encephalopathy CHF Dementia renal disease dysphagia s/p G-tube SNF resident Plan: -D/c empiric IV Vancomycin #5 -Switch Cefepime d # 5 to ZOsyn based on culture results -Cont empiric Tamiflu and Azithromycin d# 5/5 for influenza and atypical coverage, respectively -f/u cx -Monitor CBC/CMP, temperatures -f/u legionella ag urine -aspiration precautions -ICU/ETT care =CXR am Discussed with RN and micro lab staff Subjective Allergies: Coded Allergies: NO KNOWN DRUG ALLERGIES (Unverified Allergy, Unknown, 05/29/14) Subjective afebrile remains intubated, FIo2 3% no leukocytosis Objective Vital Signs Last 24 Hour Vital Signs Date Time Temp Pulse Resp B/P (MAP) Pulse Ox O2 Delivery O2 Flow Rate FiO2 04/01/18 09:00 99.1 69 23 124/50 (74) 100 04/01/18 08:31 66 27 35 04/01/18 08:30 100 04/01/18 08:20 51 105/43 04/01/18 08:00 68 22 105/43 (63) 100 04/01/18 08:00 35 04/01/18 08:00 57 04/01/18 08:00 Mechanical Ventilator 04/01/18 07:00 58 16 144/49 (80) 100 04/01/18 06:55 59 16 35 04/01/18 06:00 53 15 120/46 (70) 100 04/01/18 05:28 163/52 04/01/18 05:20 56 15 35 04/01/18 05:00 53 16 123/48 (73) 100 04/01/18 04:00 99.0 58 16 142/52 (82) 100 04/01/18 04:00 Mechanical Ventilator 04/01/18 04:00 35 04/01/18 04:00 59 04/01/18 03:25 54 16 35 04/01/18 03:00 57 16 146/51 (82) 100 04/01/18 02:00 59 16 143/50 (81) 100 04/01/18 01:25 66 16 35 04/01/18 01:00 66 16 141/56 (84) 100 04/01/18 00:00 99.1 63 16 133/56 (81) 100 04/01/18 00:00 Mechanical Ventilator 04/01/18 00:00 67 03/31/18 23:12 71 22 35 03/31/18 23:00 70 16 141/65 (90) 100 03/31/18 22:03 141/54 03/31/18 22:00 64 16 141/54 (83) 100 03/31/18 21:26 66 18 35 03/31/18 21:00 75 15 130/89 (103) 100 03/31/18 20:00 Mechanical Ventilator 03/31/18 20:00 35 03/31/18 20:00 62 03/31/18 20:00 98.9 63 16 130/89 (103) 100 03/31/18 19:13 61 16 35 03/31/18 19:00 60 16 133/62 (85) 100 03/31/18 18:00 63 16 130/60 (83) 100 03/31/18 17:24 68 22 35 03/31/18 17:00 62 16 133/62 (85) 100 03/31/18 16:00 Mechanical Ventilator 03/31/18 16:00 35 03/31/18 16:00 67 03/31/18 16:00 98.4 60 16 122/55 (77) 100 03/31/18 15:07 67 18 35 03/31/18 15:00 57 16 128/60 (82) 100 03/31/18 14:08 131/63 03/31/18 14:00 57 16 131/60 (83) 100 03/31/18 13:00 58 16 130/60 (83) 100 03/31/18 12:31 66 20 35 03/31/18 12:00 98.3 57 16 124/56 (78) 100 03/31/18 12:00 64 03/31/18 12:00 35 03/31/18 12:00 Mechanical Ventilator 03/31/18 11:00 63 16 138/55 (82) 100 03/31/18 10:50 100 03/31/18 10:50 69 21 35 03/31/18 10:00 62 16 144/56 (85) 100 Height (Feet): 5 Height (Inches): 10.00 Weight (Pounds): 159 Objective General Appearance: no apparent distress, alert, non-toxic, cachetic, Chronically Ill HEENT: normocephalic, atraumati bilateral eye PERRL Neck: full range of motion, supple/symm/no masses Respiratory: chest non-tender, no respiratory distress, no retraction, no accessory muscle use, rhonchi Cardiovascular no edema, tachycardia, systolic murmur Gastrointestinal: normal bowel sounds, non tender, soft, non-distended, no guarding, no rebound, other - G-tube Musculoskeletal: normal range of motion, non-tender, other - atrophy diffusely Neurologic: alert, other - Unable to fully assess, grossly normal Skin: warm/dry, other - See detailed RN skin exam for DU Laboratory Tests Test 04/01/18 04:00 04/01/18 04:10 04/01/18 07:54 Urine Legionella Antigen Pending White Blood Count 9.2 K/UL (4.8-10.8) Red Blood Count 3.54 M/UL (4.70-6.10) L Hemoglobin 10.0 G/DL (14.2-18.0) L Hematocrit 29.8 % (42.0-52.0) L Mean Corpuscular Volume 84 FL (80-99) Mean Corpuscular Hemoglobin 28.4 PG (27.0-31.0) Mean Corpuscular Hemoglobin Concent 33.7 G/DL (32.0-36.0) Red Cell Distribution Width 12.5 % (11.6-14.8) Platelet Count 245 K/UL (150-450) Mean Platelet Volume 8.7 FL (6.5-10.1) Neutrophils (%) (Auto) 70.6 % (45.0-75.0) Lymphocytes (%) (Auto) 18.1 % (20.0-45.0) L Monocytes (%) (Auto) 5.8 % (1.0-10.0) Eosinophils (%) (Auto) 4.5 % (0.0-3.0) H Basophils (%) (Auto) 0.9 % (0.0-2.0) Sodium Level 136 MMOL/L (136-145) Potassium Level 3.8 MMOL/L (3.5-5.1) Chloride Level 102 MMOL/L (98-107) Carbon Dioxide Level 25 MMOL/L (21-32) Anion Gap 9 mmol/L (5-15) Blood Urea Nitrogen 40 mg/dL (7-18) H Creatinine 1.6 MG/DL (0.55-1.30) H Estimat Glomerular Filtration Rate mL/min (>60) Glucose Level 199 MG/DL (74-106) H Calcium Level 9.1 MG/DL (8.5-10.1) Phosphorus Level 2.8 MG/DL (2.5-4.9) Magnesium Level 2.3 MG/DL (1.8-2.4) Total Bilirubin 0.3 MG/DL (0.2-1.0) Aspartate Amino Transf (AST/SGOT) 26 U/L (15-37) Alanine Aminotransferase (ALT/SGPT) 30 U/L (12-78) Alkaline Phosphatase 92 U/L (46-116) Total Protein 7.1 G/DL (6.4-8.2) Albumin 2.2 G/DL (3.4-5.0) L Globulin 4.9 g/dL Albumin/Globulin Ratio 0.4 (1.0-2.7) L Arterial Blood pH 7.450 (7.350-7.450) Arterial Blood Partial Pressure CO2 35.2 mmHg (35.0-45.0) Arterial Blood Partial Pressure O2 112.0 mmHg (75.0-100.0) H Arterial Blood HCO3 23.9 mmol/L (22.0-26.0) Arterial Blood Oxygen Saturation 97.8 % (95-100) Arterial Blood Base Excess 0.2 (-2-2) Juan Carlos Test Positive Current Medications Medications (Trade) Dose Ordered Sig/Dimas Route PRN Reason Start Time Stop Time Status Last Admin Dose Admin Acetaminophen (Tylenol) 650 mg Q4H PRN ORAL T>100.5 03/27/18 19:45 04/26/18 19:44 03/28/18 09:08 Albuterol/ Ipratropium (Albuterol/ Ipratropium) 3 ml Q4H PRN HHN Shortness of Breath 03/27/18 19:45 04/01/18 19:44 Amlodipine Besylate (Norvasc) 2.5 mg DAILY GT 03/29/18 09:00 04/27/18 08:59 03/31/18 09:00 Azithromycin (Zithromax) 500 mg DAILY ORAL 03/28/18 11:13 04/01/18 23:59 04/01/18 09:05 Cefepime HCl 2 gm/ Dextrose 110 ml @ 220 mls/hr Q12HR@0100,1300 IV 04/01/18 13:00 04/08/18 12:59 Dextrose (Dextrose 50%) 25 ml Q30M PRN IV Hypoglycemia 03/27/18 20:15 04/26/18 20:05 Dextrose (Dextrose 50%) 50 ml Q30M PRN IV hypoglycemia 03/27/18 20:15 04/26/18 20:14 Gabapentin (Neurontin) 300 mg Q8HR GT 03/27/18 22:00 04/26/18 21:59 04/01/18 05:28 Heparin Sodium (Porcine) (Heparin 5000 units/ml) 5,000 units EVERY 12 HOURS SUBQ 03/27/18 21:00 04/26/18 20:59 04/01/18 09:07 Hydralazine HCl (Apresoline) 25 mg EVERY 8 HOURS GT 03/28/18 14:00 04/26/18 21:59 04/01/18 05:28 Insulin Aspart (NovoLOG) Q6HR SUBQ 03/28/18 18:00 04/26/18 20:59 04/01/18 05:29 Lorazepam (Ativan 2mg/ml 1ml) 2 mg Q2H PRN IV For Anxiety 03/27/18 21:45 04/03/18 21:44 03/27/18 21:54 Morphine Sulfate (Morphine Sulfate) 2 mg Q4H PRN IVP Moderate Pain (Pain Scale 4-6) 03/27/18 21:45 04/03/18 19:44 Morphine Sulfate (Morphine Sulfate) 4 mg Q4H PRN IVP Severe Pain (Pain Scale 7-10) 03/27/18 21:45 04/03/18 21:44 Nitroglycerin (Ntg) 0.4 mg Q5MIN X 3 DOSES PRN SL Prn Chest Pain 03/27/18 20:00 04/26/18 19:59 Ondansetron HCl (Zofran) 4 mg Q6H PRN IVP Nausea & Vomiting 03/27/18 19:45 04/26/18 19:44 Oseltamivir Phosphate (Tamiflu) 30 mg BID ORAL 03/31/18 09:00 04/02/18 12:59 04/01/18 09:05 Pantoprazole (Protonix) 40 mg DAILY IVP 03/28/18 14:00 04/27/18 13:59 04/01/18 09:05 Polyethylene Glycol (Miralax) 17 gm DAILYPRN PRN ORAL Constipation 03/27/18 19:45 04/26/18 19:44 Temazepam (Restoril) 15 mg HSPRN PRN ORAL Insomnia 03/27/18 21:00 04/03/18 20:59 Vancomycin HCl (Vanco rx to dose) 1 ea DAILY PRN MISC . 03/27/18 20:15 04/26/18 20:14 Vancomycin HCl 750 mg/Sodium Chloride 275 ml @ 183.333 mls/hr Q24H IVPB 03/30/18 10:00 04/04/18 09:59 04/01/18 09:05 Angela Kendall M.D. Apr 01, 2018 09:31
[2018-04-01] MEDS: Piperacillin/Tazobactam 3.375 GM in D5W 110 ML IVPB SCH ×2 (10:00→21:35)
--- NOTE | 2018-04-01 11:29 | Diagnostic Imaging Report ---
Indication: Dyspnea Comparison: 03/30/2018 A single view chest radiograph was obtained. Findings: Cardiomegaly is stable. Endotracheal tube is in good position. Basilar atelectasis suspected. A small right pleural effusion is suspected. Bones are osteopenic. IMPRESSION: Stable radiograph
[2018-04-01] MEDS ORDERED: Cefepime 2gm/D5W 110ml IV SCH ×2 (13:00)
--- NOTE | 2018-04-01 13:45 | Nephrology Progress Note ---
Assessment/Plan Problem List: (1) ATN (acute tubular necrosis) (2) Acute respiratory failure (3) Hypernatremia Assessment Acute Renal Failure- PreRenal Azotemia / Dehydration Sepsis / Low BP Pneumonia Elevated Troponin Anemia Proteinuria / HypoAlbuminemia Plan D5W- down on rate Adjust BP meds urine studies monitor renal parameters Per orders Subjective ROS Limited/Unobtainable: Yes Objective Objective Last 24 Hour Vital Signs Date Time Temp Pulse Resp B/P (MAP) Pulse Ox O2 Delivery O2 Flow Rate FiO2 04/01/18 12:51 70 16 35 04/01/18 12:00 35 04/01/18 12:00 63 16 120/52 (74) 99 04/01/18 12:00 Mechanical Ventilator 04/01/18 11:20 35 04/01/18 11:19 35 04/01/18 11:10 77 28 35 04/01/18 11:00 70 22 120/48 (72) 100 04/01/18 10:00 68 22 122/44 (70) 100 04/01/18 09:00 99.1 69 23 124/50 (74) 100 04/01/18 08:31 66 27 35 04/01/18 08:30 100 04/01/18 08:20 51 105/43 04/01/18 08:00 68 22 105/43 (63) 100 04/01/18 08:00 35 04/01/18 08:00 57 04/01/18 08:00 Mechanical Ventilator 04/01/18 07:00 58 16 144/49 (80) 100 04/01/18 06:55 59 16 35 04/01/18 06:00 53 15 120/46 (70) 100 04/01/18 05:28 163/52 04/01/18 05:20 56 15 35 04/01/18 05:00 53 16 123/48 (73) 100 04/01/18 04:00 99.0 58 16 142/52 (82) 100 04/01/18 04:00 Mechanical Ventilator 04/01/18 04:00 35 04/01/18 04:00 59 04/01/18 03:25 54 16 35 04/01/18 03:00 57 16 146/51 (82) 100 04/01/18 02:00 59 16 143/50 (81) 100 04/01/18 01:25 66 16 35 04/01/18 01:00 66 16 141/56 (84) 100 04/01/18 00:00 99.1 63 16 133/56 (81) 100 04/01/18 00:00 Mechanical Ventilator 04/01/18 00:00 67 03/31/18 23:12 71 22 35 03/31/18 23:00 70 16 141/65 (90) 100 03/31/18 22:03 141/54 03/31/18 22:00 64 16 141/54 (83) 100 03/31/18 21:26 66 18 35 03/31/18 21:00 75 15 130/89 (103) 100 03/31/18 20:00 Mechanical Ventilator 03/31/18 20:00 35 03/31/18 20:00 62 03/31/18 20:00 98.9 63 16 130/89 (103) 100 03/31/18 19:13 61 16 35 03/31/18 19:00 60 16 133/62 (85) 100 03/31/18 18:00 63 16 130/60 (83) 100 03/31/18 17:24 68 22 35 03/31/18 17:00 62 16 133/62 (85) 100 03/31/18 16:00 Mechanical Ventilator 03/31/18 16:00 35 03/31/18 16:00 67 03/31/18 16:00 98.4 60 16 122/55 (77) 100 03/31/18 15:07 67 18 35 03/31/18 15:00 57 16 128/60 (82) 100 03/31/18 14:08 131/63 03/31/18 14:00 57 16 131/60 (83) 100 Intake and Output 03/31/18 04/01/18 19:00 07:00 Intake Total 1155 ml 1435 ml Output Total 630 ml 1065 ml Balance 525 ml 370 ml IV Total 550 ml 655 ml Tube Feeding 605 ml 660 ml Other 120 ml Output Urine Total 630 ml 1065 ml # Bowel Movements 2 Laboratory Tests 04/01/18 04:00: Urine Legionella Antigen [Pending] 04/01/18 04:10: White Blood Count 9.2, Red Blood Count 3.54L, Hemoglobin 10.0L, Hematocrit 29.8L , Mean Corpuscular Volume 84, Mean Corpuscular Hemoglobin 28.4, Mean Corpuscular Hemoglobin Concent 33.7, Red Cell Distribution Width 12.5, Platelet Count 245, Mean Platelet Volume 8.7, Neutrophils (%) (Auto) 70.6, Lymphocytes (% ) (Auto) 18.1L, Monocytes (%) (Auto) 5.8, Eosinophils (%) (Auto) 4.5H, Basophils (%) (Auto) 0.9, Sodium Level 136, Potassium Level 3.8, Chloride Level 102, Carbon Dioxide Level 25, Anion Gap 9, Blood Urea Nitrogen 40H, Creatinine 1.6H, Estimat Glomerular Filtration Rate , Glucose Level 199H, Calcium Level 9.1 , Phosphorus Level 2.8, Magnesium Level 2.3, Total Bilirubin 0.3, Aspartate Amino Transf (AST/SGOT) 26, Alanine Aminotransferase (ALT/SGPT) 30, Alkaline Phosphatase 92, Total Protein 7.1, Albumin 2.2L, Globulin 4.9, Albumin/Globulin Ratio 0.4L 04/01/18 07:54: Arterial Blood pH 7.450, Arterial Blood Partial Pressure CO2 35.2, Arterial Blood Partial Pressure O2 112.0H, Arterial Blood HCO3 23.9, Arterial Blood Oxygen Saturation 97.8, Arterial Blood Base Excess 0.2, Juan Carlos Test Positive Height (Feet): 5 Height (Inches): 10.00 Weight (Pounds): 159 General Appearance: no apparent distress EENT: other - vented Cardiovascular: tachycardia Respiratory/Chest: decreased breath sounds Abdomen: distended Hansel Kirkpatrick MD Apr 01, 2018 13:45
[2018-04-01] MEDS ORDERED: NS 275ml ONE (15:14)
--- NOTE | 2018-04-01 15:32 | General Progress Note ---
Assessment/Plan Problem List: (1) ATN (acute tubular necrosis) ICD Codes: N17.0 - Acute kidney failure with tubular necrosis SNOMED: 63798439 (2) History of CVA (cerebrovascular accident) ICD Codes: Z86.73 - Personal history of transient ischemic attack (TIA), and cerebral infarction without residual deficits SNOMED: 707296566 (3) Diabetes ICD Codes: E11.9 - Type 2 diabetes mellitus without complications SNOMED: 82826683 (4) CHF (congestive heart failure) ICD Codes: I50.9 - Heart failure, unspecified SNOMED: 90374941 (5) HTN (hypertension) ICD Codes: I10 - Essential (primary) hypertension SNOMED: 12071660 (6) Acute respiratory failure ICD Codes: J96.00 - Acute respiratory failure, unspecified whether with hypoxia or hypercapnia SNOMED: 47631712 (7) PNA (pneumonia) ICD Codes: J18.9 - Pneumonia, unspecified organism SNOMED: 767484357 (8) Sepsis ICD Codes: A41.9 - Sepsis SNOMED: 41214759 Status: unchanged Assessment/Plan vent abx bp bs control cbc bmp am ltach eval Subjective Constitutional: Reports: weakness Allergies: Coded Allergies: NO KNOWN DRUG ALLERGIES (Unverified Allergy, Unknown, 05/29/14) All Systems: reviewed and negative except above Subjective intubated sedated in icu Objective Last 24 Hour Vital Signs Date Time Temp Pulse Resp B/P (MAP) Pulse Ox O2 Delivery O2 Flow Rate FiO2 04/01/18 14:00 117/50 04/01/18 14:00 61 16 117/50 (72) 99 04/01/18 13:00 99.0 63 23 112/52 (72) 100 04/01/18 12:51 70 16 35 04/01/18 12:00 63 04/01/18 12:00 35 04/01/18 12:00 63 16 120/52 (74) 99 04/01/18 12:00 Mechanical Ventilator 04/01/18 11:20 35 04/01/18 11:19 35 04/01/18 11:10 77 28 35 04/01/18 11:00 70 22 120/48 (72) 100 04/01/18 10:00 68 22 122/44 (70) 100 04/01/18 09:00 99.1 69 23 124/50 (74) 100 04/01/18 08:31 66 27 35 04/01/18 08:30 100 04/01/18 08:20 51 105/43 04/01/18 08:00 68 22 105/43 (63) 100 04/01/18 08:00 35 04/01/18 08:00 57 04/01/18 08:00 Mechanical Ventilator 04/01/18 07:00 58 16 144/49 (80) 100 04/01/18 06:55 59 16 35 04/01/18 06:00 53 15 120/46 (70) 100 04/01/18 05:28 163/52 04/01/18 05:20 56 15 35 04/01/18 05:00 53 16 123/48 (73) 100 04/01/18 04:00 99.0 58 16 142/52 (82) 100 04/01/18 04:00 Mechanical Ventilator 04/01/18 04:00 35 04/01/18 04:00 59 04/01/18 03:25 54 16 35 04/01/18 03:00 57 16 146/51 (82) 100 04/01/18 02:00 59 16 143/50 (81) 100 04/01/18 01:25 66 16 35 04/01/18 01:00 66 16 141/56 (84) 100 04/01/18 00:00 99.1 63 16 133/56 (81) 100 04/01/18 00:00 Mechanical Ventilator 04/01/18 00:00 67 03/31/18 23:12 71 22 35 03/31/18 23:00 70 16 141/65 (90) 100 03/31/18 22:03 141/54 03/31/18 22:00 64 16 141/54 (83) 100 03/31/18 21:26 66 18 35 03/31/18 21:00 75 15 130/89 (103) 100 03/31/18 20:00 Mechanical Ventilator 03/31/18 20:00 35 03/31/18 20:00 62 03/31/18 20:00 98.9 63 16 130/89 (103) 100 03/31/18 19:13 61 16 35 03/31/18 19:00 60 16 133/62 (85) 100 03/31/18 18:00 63 16 130/60 (83) 100 03/31/18 17:24 68 22 35 03/31/18 17:00 62 16 133/62 (85) 100 03/31/18 16:00 Mechanical Ventilator 03/31/18 16:00 35 03/31/18 16:00 67 03/31/18 16:00 98.4 60 16 122/55 (77) 100 Intake and Output 03/31/18 04/01/18 19:00 07:00 Intake Total 1155 ml 1435 ml Output Total 630 ml 1065 ml Balance 525 ml 370 ml IV Total 550 ml 655 ml Tube Feeding 605 ml 660 ml Other 120 ml Output Urine Total 630 ml 1065 ml # Bowel Movements 2 Laboratory Tests 04/01/18 04:00: Urine Legionella Antigen [Pending] 04/01/18 04:10: White Blood Count 9.2, Red Blood Count 3.54L, Hemoglobin 10.0L, Hematocrit 29.8L , Mean Corpuscular Volume 84, Mean Corpuscular Hemoglobin 28.4, Mean Corpuscular Hemoglobin Concent 33.7, Red Cell Distribution Width 12.5, Platelet Count 245, Mean Platelet Volume 8.7, Neutrophils (%) (Auto) 70.6, Lymphocytes (% ) (Auto) 18.1L, Monocytes (%) (Auto) 5.8, Eosinophils (%) (Auto) 4.5H, Basophils (%) (Auto) 0.9, Sodium Level 136, Potassium Level 3.8, Chloride Level 102, Carbon Dioxide Level 25, Anion Gap 9, Blood Urea Nitrogen 40H, Creatinine 1.6H, Estimat Glomerular Filtration Rate , Glucose Level 199H, Calcium Level 9.1 , Phosphorus Level 2.8, Magnesium Level 2.3, Total Bilirubin 0.3, Aspartate Amino Transf (AST/SGOT) 26, Alanine Aminotransferase (ALT/SGPT) 30, Alkaline Phosphatase 92, Total Protein 7.1, Albumin 2.2L, Globulin 4.9, Albumin/Globulin Ratio 0.4L 04/01/18 07:54: Arterial Blood pH 7.450, Arterial Blood Partial Pressure CO2 35.2, Arterial Blood Partial Pressure O2 112.0H, Arterial Blood HCO3 23.9, Arterial Blood Oxygen Saturation 97.8, Arterial Blood Base Excess 0.2, Juan Carlos Test Positive Height (Feet): 5 Height (Inches): 10.00 Weight (Pounds): 159 General Appearance: lethargic EENT: normal ENT inspection Neck: normal alignment Cardiovascular: normal peripheral pulses, normal rate, regular rhythm Respiratory/Chest: chest wall non-tender, lungs clear, normal breath sounds Abdomen: normal bowel sounds, non tender, soft Extremities: normal inspection Edema: no edema noted Arm (L), no edema noted Arm (R), no edema noted Leg (L), no edema noted Leg (R), no edema noted Pedal (L), no edema noted Pedal (R), no edema noted Generalized Neurologic: motor weakness Skin: normal pigmentation, warm/dry Remberto Joe DO Apr 01, 2018 15:32
--- NOTE | 2018-04-01 16:02 | Diagnostic Imaging Report ---
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 The right upper extremity was prepped with alcohol. All elements of maximal sterile barrier technique were followed including usage of a cap, mask, sterile gown, sterile gloves, hand hygiene and a large sterile sheet. Sonographic evaluation of the upper extremity was performed demonstrating a patent and compressible brachial vein. Access was obtained under real-time ultrasound guidance (with utilization of sterile gel and sterile probe cover) and digital image was saved and archived. An .018 wire was introduced. Needle exchanged for a 5 Kosovan peel-away sheath. Measurements were obtained. A 5 Kosovan dual-lumen Power PICC line catheter was cut to 35 cm and introduced over the wire. Peel-away sheath and wire were removed.Catheter was secured to the skin using 2-0 Prolene suture. Both ports aspirate and flush easily. Post procedure chest x-ray demonstrates good position of the PICC line catheter within the SVC. Impression: Successful placement of an upper extremity PICC line catheter
[2018-04-01] MEDS: Dyna-Hex 2% Top Sol 2oz TOPIC SCH (20:06)
[2018-04-02] VITALS (24 sets, daily range): BP systolic 111–175; BP diastolic 41–72
[2018-04-02 05:20] LABS: BASOPHILS % (AUTO) 0.6 % (0.0-2.0); EOSINOPHILS % (AUTO) 4.1 % (0.0-3.0); HEMATOCRIT 28.1 % (42.0-52.0); HEMOGLOBIN 9.3 G/DL (14.2-18.0); LYMPHOCYTES % (AUTO) 14.6 % (20.0-45.0); MEAN CORPUSCULAR VOLUME 85 FL (80-99); MONOCYTES % (AUTO) 5.6 % (1.0-10.0); NEUTROPHILS % (AUTO) 75.1 % (45.0-75.0); PLATELET COUNT 272 K/UL (150-450); RED BLOOD COUNT 3.31 M/UL (4.70-6.10); RED CELL DISTRIBUTION WIDTH 12.3 % (11.6-14.8); WHITE BLOOD COUNT 9.3 K/UL (4.8-10.8)
[2018-04-02 05:42] LABS: ALANINE AMINOTRANSFERASE 29 U/L (12-78); ALBUMIN 2.1 G/DL (3.4-5.0); ALBUMIN/GLOBULIN RATIO 0.4 (1.0-2.7); ALKALINE PHOSPHATASE 89 U/L (46-116); ANION GAP 8 mmol/L (5-15); ASPARTATE AMINO TRANSFERASE 28 U/L (15-37); BILIRUBIN,TOTAL 0.3 MG/DL (0.2-1.0); BLOOD UREA NITROGEN 34 mg/dL (7-18); CALCIUM 8.9 MG/DL (8.5-10.1); CARBON DIOXIDE 26 MMOL/L (21-32); CHLORIDE 103 MMOL/L (98-107); CREATININE 1.7 MG/DL (0.55-1.30); POTASSIUM 3.4 MMOL/L (3.5-5.1); SODIUM 137 MMOL/L (136-145)
[2018-04-02] MEDS: Piperacillin/Tazobactam 3.375 GM in D5W 110 ML IVPB SCH ×3 (05:43→21:59)
[2018-04-02] MEDS: Gabapentin 300 MG/6 ML Soln GT SCH ×3 (05:43→21:59)
[2018-04-02] MEDS: NovoLOG Insulin Flexpen SUBQ SCH ×4 (05:46→23:56)
[2018-04-02] MEDS: HydrALAZINE 25mg tab GT SCH ×3 (05:48→21:59)
[2018-04-02] MEDS: Pantoprazole Inj IVP SCH (08:48)
[2018-04-02] MEDS: Heparin 5000 units/ml inj SUBQ SCH ×2 (08:56→20:29)
--- NOTE | 2018-04-02 09:40 | Pulmonolgy Critical Care Note ---
Critical Care - Asmt/Plan Problems: (1) Acute respiratory failure (2) Sepsis (3) Dementia (4) HTN (hypertension) (5) Diabetes (6) History of CVA (cerebrovascular accident) (7) Feeding by G-tube Respiratory: monitor respiratory rate, adjust FIO2, CXR Cardiac: continue to monitor HR/BP Renal: F/U I&O Infectious Disease: check cultures Gastrointestinal: continue feedings/current rate, hold feedings Endocrine: check HgA1C, continue sliding scale insulin Hematologic: transfuse if hgb<8.5 Neurologic: PRN Ativan, keep patient comfortable Prophylaxis: Protonix, Heparin Notes Reviewed: cardio, 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, consultants, clinical case managersenior technical project manager - Objective Last 24 Hour Vital Signs Date Time Temp Pulse Resp B/P (MAP) Pulse Ox O2 Delivery O2 Flow Rate FiO2 04/02/18 08:49 62 143/54 04/02/18 08:30 30 04/02/18 08:30 58 16 30 04/02/18 08:00 30 04/02/18 08:00 Mechanical Ventilator 04/02/18 07:00 63 16 30 04/02/18 06:00 61 16 111/44 (66) 100 04/02/18 05:48 111/44 04/02/18 05:09 61 16 30 04/02/18 05:00 61 16 111/44 (66) 98 04/02/18 04:00 68 16 128/49 (75) 98 04/02/18 04:00 30 04/02/18 04:00 Mechanical Ventilator 04/02/18 04:00 73 04/02/18 03:00 78 20 128/49 (75) 99 04/02/18 02:43 52 16 30 04/02/18 02:00 56 16 128/49 (75) 99 04/02/18 01:05 71 16 30 04/02/18 01:00 67 16 126/49 (74) 99 04/02/18 00:00 98.7 71 17 126/49 (74) 99 04/02/18 00:00 Mechanical Ventilator 04/02/18 00:00 78 04/02/18 00:00 30 04/01/18 23:22 68 18 30 04/01/18 23:00 71 17 147/57 (87) 99 04/01/18 22:00 66 16 133/46 (75) 100 04/01/18 21:35 139/50 04/01/18 21:00 61 16 143/53 (83) 100 04/01/18 20:55 65 16 30 04/01/18 20:00 98.5 61 16 139/50 (79) 100 04/01/18 20:00 30 04/01/18 20:00 64 04/01/18 20:00 Mechanical Ventilator 04/01/18 19:00 65 16 128/55 (79) 99 04/01/18 18:55 81 31 30 04/01/18 18:00 63 16 125/52 (76) 99 04/01/18 17:00 99.0 62 23 115/55 (75) 100 04/01/18 16:52 62 16 35 04/01/18 16:00 Mechanical Ventilator 04/01/18 16:00 62 16 110/52 (71) 99 04/01/18 16:00 35 04/01/18 16:00 61 04/01/18 15:34 61 16 35 04/01/18 15:00 61 16 118/55 (76) 99 04/01/18 14:00 117/50 04/01/18 14:00 61 16 117/50 (72) 99 04/01/18 13:00 99.0 63 23 112/52 (72) 100 04/01/18 12:51 70 16 35 04/01/18 12:00 63 04/01/18 12:00 35 04/01/18 12:00 63 16 120/52 (74) 99 04/01/18 12:00 Mechanical Ventilator 04/01/18 11:20 35 04/01/18 11:19 35 04/01/18 11:10 77 28 35 04/01/18 11:00 70 22 120/48 (72) 100 04/01/18 10:00 68 22 122/44 (70) 100 Status: awake Condition: critical HEENT: atraumatic Neck: full ROM Lungs: chest wall tender Heart: HR/BP stable Abdomen: soft, non-tender, feeding tube Extremities: edema Decubiti: location Accucheck: 187 Critical Care - Subjective ROS Limited/Unobtainable: Yes Condition: critical EKG Rhythm: Sinus Rhythm FI02: 30 Vent Support Breath Rate: 16 Vent Support Mode: CPAP Vent Tidal Volume: 500 Sputum Amount: Small PEEP: 5.0 PIP: 13 Tube Feeding Amount: 55 I&O: Intake and Output 04/01/18 04/02/18 19:00 07:00 Intake Total 770.0 ml 860.0 ml Output Total 1015 ml 790 ml Balance -245.0 ml 70.0 ml Intake Free Water 90 ml IV Total 110.0 ml 110.0 ml Tube Feeding 660 ml 660 ml Output Urine Total 1015 ml 790 ml # Bowel Movements 3 3 ET-Tube: 7.5 ET Position: 20 Labs: Laboratory Tests Test 04/02/18 04:00 White Blood Count 9.3 K/UL (4.8-10.8) Red Blood Count 3.31 M/UL (4.70-6.10) L Hemoglobin 9.3 G/DL (14.2-18.0) L Hematocrit 28.1 % (42.0-52.0) L Mean Corpuscular Volume 85 FL (80-99) Mean Corpuscular Hemoglobin 28.2 PG (27.0-31.0) Mean Corpuscular Hemoglobin Concent 33.3 G/DL (32.0-36.0) Red Cell Distribution Width 12.3 % (11.6-14.8) Platelet Count 272 K/UL (150-450) Mean Platelet Volume 8.5 FL (6.5-10.1) Neutrophils (%) (Auto) 75.1 % (45.0-75.0) H Lymphocytes (%) (Auto) 14.6 % (20.0-45.0) L Monocytes (%) (Auto) 5.6 % (1.0-10.0) Eosinophils (%) (Auto) 4.1 % (0.0-3.0) H Basophils (%) (Auto) 0.6 % (0.0-2.0) Arterial Blood pH 7.445 (7.350-7.450) Arterial Blood Partial Pressure CO2 36.4 mmHg (35.0-45.0) Arterial Blood Partial Pressure O2 88.2 mmHg (75.0-100.0) Arterial Blood HCO3 24.2 mmol/L (22.0-26.0) Arterial Blood Oxygen Saturation 96.1 % (95-100) Arterial Blood Base Excess 0.5 (-2-2) Juan Carlos Test Positive Sodium Level 137 MMOL/L (136-145) Potassium Level 3.4 MMOL/L (3.5-5.1) L Chloride Level 103 MMOL/L (98-107) Carbon Dioxide Level 26 MMOL/L (21-32) Anion Gap 8 mmol/L (5-15) Blood Urea Nitrogen 34 mg/dL (7-18) H Creatinine 1.7 MG/DL (0.55-1.30) H Estimat Glomerular Filtration Rate mL/min (>60) Glucose Level 182 MG/DL (74-106) H Calcium Level 8.9 MG/DL (8.5-10.1) Phosphorus Level 3.0 MG/DL (2.5-4.9) Magnesium Level 2.2 MG/DL (1.8-2.4) Total Bilirubin 0.3 MG/DL (0.2-1.0) Aspartate Amino Transf (AST/SGOT) 28 U/L (15-37) Alanine Aminotransferase (ALT/SGPT) 29 U/L (12-78) Alkaline Phosphatase 89 U/L (46-116) Total Protein 6.8 G/DL (6.4-8.2) Albumin 2.1 G/DL (3.4-5.0) L Globulin 4.7 g/dL Albumin/Globulin Ratio 0.4 (1.0-2.7) L Wang Guzman MD Apr 02, 2018 09:40
--- NOTE | 2018-04-02 11:03 | Diagnostic Imaging Report ---
Indication: Dyspnea Technique: One view of the chest Comparison: 04/01/2018 post PICC radiograph Findings: The heart is enlarged. Stable satisfactory position of endotracheal tube, PICC. There is some developing atelectasis in the right midlung. There is improved aeration of the left lung base. Lungs and pleural spaces are otherwise clear. The heart is borderline enlarged. There is suggestion of a small right pleural effusion Impression: Developing right midlung atelectasis and small right pleural effusion Otherwise stable findings as described, over one
--- NOTE | 2018-04-02 11:19 | Nephrology Progress Note ---
Assessment/Plan Problem List: (1) ATN (acute tubular necrosis) (2) Acute respiratory failure (3) Hypernatremia Assessment Acute Renal Failure- PreRenal Azotemia / Dehydration Sepsis / Low BP Pneumonia Elevated Troponin Anemia Proteinuria / HypoAlbuminemia Plan K supplement D5W- down on rate Adjust BP meds urine studies monitor renal parameters Per orders Subjective ROS Limited/Unobtainable: Yes Objective Objective Last 24 Hour Vital Signs Date Time Temp Pulse Resp B/P (MAP) Pulse Ox O2 Delivery O2 Flow Rate FiO2 04/02/18 10:00 63 22 136/50 (78) 98 04/02/18 09:40 30 04/02/18 09:00 73 23 175/69 (104) 97 04/02/18 08:49 62 143/54 04/02/18 08:30 30 04/02/18 08:30 58 16 30 04/02/18 08:00 30 04/02/18 08:00 Mechanical Ventilator 04/02/18 08:00 98.2 61 15 139/61 (87) 99 04/02/18 07:00 56 16 115/41 (65) 99 04/02/18 07:00 63 16 30 04/02/18 06:00 61 16 111/44 (66) 100 04/02/18 05:48 111/44 04/02/18 05:09 61 16 30 04/02/18 05:00 61 16 111/44 (66) 98 04/02/18 04:00 68 16 128/49 (75) 98 04/02/18 04:00 30 04/02/18 04:00 Mechanical Ventilator 04/02/18 04:00 73 04/02/18 03:00 78 20 128/49 (75) 99 04/02/18 02:43 52 16 30 04/02/18 02:00 56 16 128/49 (75) 99 04/02/18 01:05 71 16 30 04/02/18 01:00 67 16 126/49 (74) 99 04/02/18 00:00 98.7 71 17 126/49 (74) 99 04/02/18 00:00 Mechanical Ventilator 04/02/18 00:00 78 04/02/18 00:00 30 04/01/18 23:22 68 18 30 04/01/18 23:00 71 17 147/57 (87) 99 04/01/18 22:00 66 16 133/46 (75) 100 04/01/18 21:35 139/50 04/01/18 21:00 61 16 143/53 (83) 100 04/01/18 20:55 65 16 30 04/01/18 20:00 98.5 61 16 139/50 (79) 100 04/01/18 20:00 30 04/01/18 20:00 64 04/01/18 20:00 Mechanical Ventilator 04/01/18 19:00 65 16 128/55 (79) 99 04/01/18 18:55 81 31 30 04/01/18 18:00 63 16 125/52 (76) 99 04/01/18 17:00 99.0 62 23 115/55 (75) 100 04/01/18 16:52 62 16 35 04/01/18 16:00 Mechanical Ventilator 04/01/18 16:00 62 16 110/52 (71) 99 04/01/18 16:00 35 04/01/18 16:00 61 04/01/18 15:34 61 16 35 04/01/18 15:00 61 16 118/55 (76) 99 04/01/18 14:00 117/50 04/01/18 14:00 61 16 117/50 (72) 99 04/01/18 13:00 99.0 63 23 112/52 (72) 100 04/01/18 12:51 70 16 35 04/01/18 12:00 63 04/01/18 12:00 35 04/01/18 12:00 63 16 120/52 (74) 99 04/01/18 12:00 Mechanical Ventilator 04/01/18 11:20 35 04/01/18 11:19 35 Intake and Output 04/01/18 04/02/18 19:00 07:00 Intake Total 770.0 ml 860.0 ml Output Total 1015 ml 790 ml Balance -245.0 ml 70.0 ml Intake Free Water 90 ml IV Total 110.0 ml 110.0 ml Tube Feeding 660 ml 660 ml Output Urine Total 1015 ml 790 ml # Bowel Movements 3 3 Laboratory Tests 04/02/18 04:00: White Blood Count 9.3, Red Blood Count 3.31L, Hemoglobin 9.3L, Hematocrit 28.1L , Mean Corpuscular Volume 85, Mean Corpuscular Hemoglobin 28.2, Mean Corpuscular Hemoglobin Concent 33.3, Red Cell Distribution Width 12.3, Platelet Count 272, Mean Platelet Volume 8.5, Neutrophils (%) (Auto) 75.1H, Lymphocytes ( %) (Auto) 14.6L, Monocytes (%) (Auto) 5.6, Eosinophils (%) (Auto) 4.1H, Basophils (%) (Auto) 0.6, Arterial Blood pH 7.445, Arterial Blood Partial Pressure CO2 36.4, Arterial Blood Partial Pressure O2 88.2, Arterial Blood HCO3 24.2, Arterial Blood Oxygen Saturation 96.1, Arterial Blood Base Excess 0.5, Juan Carlos Test Positive, Sodium Level 137, Potassium Level 3.4L, Chloride Level 103 , Carbon Dioxide Level 26, Anion Gap 8, Blood Urea Nitrogen 34H, Creatinine 1.7H , Estimat Glomerular Filtration Rate , Glucose Level 182H, Calcium Level 8.9, Phosphorus Level 3.0, Magnesium Level 2.2, Total Bilirubin 0.3, Aspartate Amino Transf (AST/SGOT) 28, Alanine Aminotransferase (ALT/SGPT) 29, Alkaline Phosphatase 89, C-Reactive Protein, Quantitative [Pending], Total Protein 6.8, Albumin 2.1L, Globulin 4.7, Albumin/Globulin Ratio 0.4L Height (Feet): 5 Height (Inches): 10.00 Weight (Pounds): 160 EENT: other - on ventilator Cardiovascular: normal rate Respiratory/Chest: decreased breath sounds Abdomen: soft Hansel Kirkpatrick MD Apr 02, 2018 11:19
--- NOTE | 2018-04-02 12:47 | General Progress Note ---
Assessment/Plan Problem List: (1) ATN (acute tubular necrosis) ICD Codes: N17.0 - Acute kidney failure with tubular necrosis SNOMED: 14586297 (2) History of CVA (cerebrovascular accident) ICD Codes: Z86.73 - Personal history of transient ischemic attack (TIA), and cerebral infarction without residual deficits SNOMED: 924488791 (3) Diabetes ICD Codes: E11.9 - Type 2 diabetes mellitus without complications SNOMED: 19259352 (4) CHF (congestive heart failure) ICD Codes: I50.9 - Heart failure, unspecified SNOMED: 76244787 (5) HTN (hypertension) ICD Codes: I10 - Essential (primary) hypertension SNOMED: 91651531 (6) Acute respiratory failure ICD Codes: J96.00 - Acute respiratory failure, unspecified whether with hypoxia or hypercapnia SNOMED: 14011909 (7) PNA (pneumonia) ICD Codes: J18.9 - Pneumonia, unspecified organism SNOMED: 916643970 (8) Sepsis ICD Codes: A41.9 - Sepsis SNOMED: 12047724 Status: progressing Assessment/Plan vent abx bp bs control cbc bmp am ltach eval Subjective Constitutional: Reports: weakness Allergies: Coded Allergies: NO KNOWN DRUG ALLERGIES (Unverified Allergy, Unknown, 05/29/14) All Systems: reviewed and negative except above Subjective o2 mask in icu Objective Last 24 Hour Vital Signs Date Time Temp Pulse Resp B/P (MAP) Pulse Ox O2 Delivery O2 Flow Rate FiO2 04/02/18 12:00 Simple Mask 10.0 Simple Mask 10.0 04/02/18 11:40 Venturi Mask 8.0 30 04/02/18 10:00 63 22 136/50 (78) 98 04/02/18 09:40 30 04/02/18 09:00 73 23 175/69 (104) 97 04/02/18 08:49 62 143/54 04/02/18 08:30 30 04/02/18 08:30 58 16 30 04/02/18 08:00 30 04/02/18 08:00 Mechanical Ventilator 04/02/18 08:00 61 04/02/18 08:00 98.2 61 15 139/61 (87) 99 04/02/18 07:00 56 16 115/41 (65) 99 04/02/18 07:00 63 16 30 04/02/18 06:00 61 16 111/44 (66) 100 04/02/18 05:48 111/44 04/02/18 05:09 61 16 30 04/02/18 05:00 61 16 111/44 (66) 98 04/02/18 04:00 68 16 128/49 (75) 98 04/02/18 04:00 30 04/02/18 04:00 Mechanical Ventilator 04/02/18 04:00 73 04/02/18 03:00 78 20 128/49 (75) 99 04/02/18 02:43 52 16 30 04/02/18 02:00 56 16 128/49 (75) 99 04/02/18 01:05 71 16 30 04/02/18 01:00 67 16 126/49 (74) 99 04/02/18 00:00 98.7 71 17 126/49 (74) 99 04/02/18 00:00 Mechanical Ventilator 04/02/18 00:00 78 04/02/18 00:00 30 04/01/18 23:22 68 18 30 04/01/18 23:00 71 17 147/57 (87) 99 04/01/18 22:00 66 16 133/46 (75) 100 04/01/18 21:35 139/50 04/01/18 21:00 61 16 143/53 (83) 100 04/01/18 20:55 65 16 30 04/01/18 20:00 98.5 61 16 139/50 (79) 100 04/01/18 20:00 30 04/01/18 20:00 64 04/01/18 20:00 Mechanical Ventilator 04/01/18 19:00 65 16 128/55 (79) 99 04/01/18 18:55 81 31 30 04/01/18 18:00 63 16 125/52 (76) 99 04/01/18 17:00 99.0 62 23 115/55 (75) 100 04/01/18 16:52 62 16 35 04/01/18 16:00 Mechanical Ventilator 04/01/18 16:00 62 16 110/52 (71) 99 04/01/18 16:00 35 04/01/18 16:00 61 04/01/18 15:34 61 16 35 04/01/18 15:00 61 16 118/55 (76) 99 04/01/18 14:00 117/50 04/01/18 14:00 61 16 117/50 (72) 99 04/01/18 13:00 99.0 63 23 112/52 (72) 100 04/01/18 12:51 70 16 35 Intake and Output 04/01/18 04/02/18 19:00 07:00 Intake Total 770.0 ml 860.0 ml Output Total 1015 ml 790 ml Balance -245.0 ml 70.0 ml Intake Free Water 90 ml IV Total 110.0 ml 110.0 ml Tube Feeding 660 ml 660 ml Output Urine Total 1015 ml 790 ml # Bowel Movements 3 3 Laboratory Tests 04/02/18 04:00: White Blood Count 9.3, Red Blood Count 3.31L, Hemoglobin 9.3L, Hematocrit 28.1L , Mean Corpuscular Volume 85, Mean Corpuscular Hemoglobin 28.2, Mean Corpuscular Hemoglobin Concent 33.3, Red Cell Distribution Width 12.3, Platelet Count 272, Mean Platelet Volume 8.5, Neutrophils (%) (Auto) 75.1H, Lymphocytes ( %) (Auto) 14.6L, Monocytes (%) (Auto) 5.6, Eosinophils (%) (Auto) 4.1H, Basophils (%) (Auto) 0.6, Arterial Blood pH 7.445, Arterial Blood Partial Pressure CO2 36.4, Arterial Blood Partial Pressure O2 88.2, Arterial Blood HCO3 24.2, Arterial Blood Oxygen Saturation 96.1, Arterial Blood Base Excess 0.5, Juan Carlos Test Positive, Sodium Level 137, Potassium Level 3.4L, Chloride Level 103 , Carbon Dioxide Level 26, Anion Gap 8, Blood Urea Nitrogen 34H, Creatinine 1.7H , Estimat Glomerular Filtration Rate , Glucose Level 182H, Calcium Level 8.9, Phosphorus Level 3.0, Magnesium Level 2.2, Total Bilirubin 0.3, Aspartate Amino Transf (AST/SGOT) 28, Alanine Aminotransferase (ALT/SGPT) 29, Alkaline Phosphatase 89, C-Reactive Protein, Quantitative 6.1H, Total Protein 6.8, Albumin 2.1L, Globulin 4.7, Albumin/Globulin Ratio 0.4L Height (Feet): 5 Height (Inches): 10.00 Weight (Pounds): 160 General Appearance: lethargic EENT: normal ENT inspection Neck: normal alignment Cardiovascular: normal peripheral pulses, normal rate, regular rhythm Respiratory/Chest: chest wall non-tender, lungs clear, normal breath sounds Abdomen: normal bowel sounds, non tender, soft Extremities: normal inspection Edema: no edema noted Arm (L), no edema noted Arm (R), no edema noted Leg (L), no edema noted Leg (R), no edema noted Pedal (L), no edema noted Pedal (R), no edema noted Generalized Neurologic: motor weakness Skin: normal pigmentation, warm/dry Remberto Joe DO Apr 02, 2018 12:47
--- NOTE | 2018-04-02 15:46 | Infectious Diseases Prog Note ---
Assessment/Plan Assessment/Plan Probable PNA - Probable Influenza 04/02 CXR: There is some developing atelectasis in the right midlung. There is improved aeration of the left lung base. Lungs and pleural spaces are otherwise clear. 03/29 CXR: Persistent consolidation in bilateral medial lung bases concerning for atelectasis versus pneumonia. Persistent prominent increased interstitial markings. sp cxb #1: P, stuartii (R ance, amp, CTx, Cipro; otherwise S), P. mirabalis ESBL( S Zosyn) #2 PsA (bailey S), P. stuarti, P. mirabilis -CXR: Persistent right perihilar congestive change, left basilar atelectasis. -influenza sc neg -Bcx NTD Acute respiratory failure s/p intubation 03/28- likely combination of CHF and prob PNA -extubated 04/02 Fever, SP Leukocytosis, SP Sacral decub- no signs of infection -wound cx MRSA , ESBL P. mirabilis (colonizers) DM2 HTN CAD/WA HLD GERD CVA/TIA Chronic encephalopathy CHF Dementia renal disease dysphagia s/p G-tube SNF resident Plan: -Cont ZOsyn #2/5-7 for PNA based on culture results -04/01 SP IV Vancomycin #5, Cefepime #5, Tamiflu and Azithromycin d# 5 -f/u cx -Monitor CBC/CMP, temperatures -f/u legionella ag urine -aspiration precautions -ICU/ETT care Discussed with RN and micro lab staff Subjective Allergies: Coded Allergies: NO KNOWN DRUG ALLERGIES (Unverified Allergy, Unknown, 05/29/14) Subjective afebrile extubated today no leukocytosis CXR improved Objective Vital Signs Last 24 Hour Vital Signs Date Time Temp Pulse Resp B/P (MAP) Pulse Ox O2 Delivery O2 Flow Rate FiO2 04/02/18 13:54 147/54 04/02/18 13:00 62 23 148/57 (87) 92 04/02/18 12:00 Simple Mask 10.0 Simple Mask 10.0 04/02/18 12:00 62 23 139/54 (82) 97 04/02/18 12:00 58 04/02/18 11:40 Venturi Mask 8.0 30 04/02/18 11:00 60 24 132/56 (81) 98 04/02/18 10:00 63 22 136/50 (78) 98 04/02/18 09:40 30 04/02/18 09:00 73 23 175/69 (104) 97 04/02/18 08:49 62 143/54 04/02/18 08:30 30 04/02/18 08:30 58 16 30 04/02/18 08:00 30 04/02/18 08:00 Mechanical Ventilator 04/02/18 08:00 61 04/02/18 08:00 98.2 61 15 139/61 (87) 99 04/02/18 07:00 56 16 115/41 (65) 99 04/02/18 07:00 63 16 30 04/02/18 06:00 61 16 111/44 (66) 100 04/02/18 05:48 111/44 04/02/18 05:09 61 16 30 04/02/18 05:00 61 16 111/44 (66) 98 04/02/18 04:00 68 16 128/49 (75) 98 04/02/18 04:00 30 04/02/18 04:00 Mechanical Ventilator 04/02/18 04:00 73 04/02/18 03:00 78 20 128/49 (75) 99 04/02/18 02:43 52 16 30 04/02/18 02:00 56 16 128/49 (75) 99 04/02/18 01:05 71 16 30 04/02/18 01:00 67 16 126/49 (74) 99 04/02/18 00:00 98.7 71 17 126/49 (74) 99 04/02/18 00:00 Mechanical Ventilator 04/02/18 00:00 78 04/02/18 00:00 30 04/01/18 23:22 68 18 30 04/01/18 23:00 71 17 147/57 (87) 99 04/01/18 22:00 66 16 133/46 (75) 100 04/01/18 21:35 139/50 04/01/18 21:00 61 16 143/53 (83) 100 04/01/18 20:55 65 16 30 04/01/18 20:00 98.5 61 16 139/50 (79) 100 04/01/18 20:00 30 04/01/18 20:00 64 04/01/18 20:00 Mechanical Ventilator 04/01/18 19:00 65 16 128/55 (79) 99 04/01/18 18:55 81 31 30 04/01/18 18:00 63 16 125/52 (76) 99 04/01/18 17:00 99.0 62 23 115/55 (75) 100 04/01/18 16:52 62 16 35 04/01/18 16:00 Mechanical Ventilator 04/01/18 16:00 62 16 110/52 (71) 99 04/01/18 16:00 35 04/01/18 16:00 61 Height (Feet): 5 Height (Inches): 10.00 Weight (Pounds): 160 Objective General Appearance: no apparent distress, alert, non-toxic, cachetic, Chronically Ill HEENT: normocephalic, atraumati bilateral eye PERRL Neck: full range of motion, supple/symm/no masses Respiratory: chest non-tender, no respiratory distress, no retraction, no accessory muscle use, rhonchi Cardiovascular no edema, tachycardia, systolic murmur Gastrointestinal: normal bowel sounds, non tender, soft, non-distended, no guarding, no rebound, other - G-tube Musculoskeletal: normal range of motion, non-tender, other - atrophy diffusely Neurologic: alert, other - Unable to fully assess, grossly normal Skin: warm/dry, other - See detailed RN skin exam for DU Laboratory Tests Test 04/02/18 04:00 White Blood Count 9.3 K/UL (4.8-10.8) Red Blood Count 3.31 M/UL (4.70-6.10) L Hemoglobin 9.3 G/DL (14.2-18.0) L Hematocrit 28.1 % (42.0-52.0) L Mean Corpuscular Volume 85 FL (80-99) Mean Corpuscular Hemoglobin 28.2 PG (27.0-31.0) Mean Corpuscular Hemoglobin Concent 33.3 G/DL (32.0-36.0) Red Cell Distribution Width 12.3 % (11.6-14.8) Platelet Count 272 K/UL (150-450) Mean Platelet Volume 8.5 FL (6.5-10.1) Neutrophils (%) (Auto) 75.1 % (45.0-75.0) H Lymphocytes (%) (Auto) 14.6 % (20.0-45.0) L Monocytes (%) (Auto) 5.6 % (1.0-10.0) Eosinophils (%) (Auto) 4.1 % (0.0-3.0) H Basophils (%) (Auto) 0.6 % (0.0-2.0) Arterial Blood pH 7.445 (7.350-7.450) Arterial Blood Partial Pressure CO2 36.4 mmHg (35.0-45.0) Arterial Blood Partial Pressure O2 88.2 mmHg (75.0-100.0) Arterial Blood HCO3 24.2 mmol/L (22.0-26.0) Arterial Blood Oxygen Saturation 96.1 % (95-100) Arterial Blood Base Excess 0.5 (-2-2) Juan Carlos Test Positive Sodium Level 137 MMOL/L (136-145) Potassium Level 3.4 MMOL/L (3.5-5.1) L Chloride Level 103 MMOL/L (98-107) Carbon Dioxide Level 26 MMOL/L (21-32) Anion Gap 8 mmol/L (5-15) Blood Urea Nitrogen 34 mg/dL (7-18) H Creatinine 1.7 MG/DL (0.55-1.30) H Estimat Glomerular Filtration Rate mL/min (>60) Glucose Level 182 MG/DL (74-106) H Calcium Level 8.9 MG/DL (8.5-10.1) Phosphorus Level 3.0 MG/DL (2.5-4.9) Magnesium Level 2.2 MG/DL (1.8-2.4) Total Bilirubin 0.3 MG/DL (0.2-1.0) Aspartate Amino Transf (AST/SGOT) 28 U/L (15-37) Alanine Aminotransferase (ALT/SGPT) 29 U/L (12-78) Alkaline Phosphatase 89 U/L (46-116) C-Reactive Protein, Quantitative 6.1 mg/dL (0.00-0.90) H Total Protein 6.8 G/DL (6.4-8.2) Albumin 2.1 G/DL (3.4-5.0) L Globulin 4.7 g/dL Albumin/Globulin Ratio 0.4 (1.0-2.7) L Current Medications Medications (Trade) Dose Ordered Sig/Dimas Route PRN Reason Start Time Stop Time Status Last Admin Dose Admin Acetaminophen (Tylenol) 650 mg Q4H PRN ORAL T>100.5 03/27/18 19:45 04/26/18 19:44 03/28/18 09:08 Amlodipine Besylate (Norvasc) 2.5 mg DAILY GT 03/29/18 09:00 04/27/18 08:59 04/02/18 08:49 Chlorhexidine Gluconate (Joanna-Hex 2%) 1 applic DAILY@2000 TOPIC 04/01/18 20:00 05/01/18 19:59 04/01/18 20:06 Dextrose (Dextrose 50%) 25 ml Q30M PRN IV Hypoglycemia 03/27/18 20:15 04/26/18 20:05 Dextrose (Dextrose 50%) 50 ml Q30M PRN IV hypoglycemia 03/27/18 20:15 04/26/18 20:14 Gabapentin (Neurontin) 300 mg Q8HR GT 03/27/18 22:00 04/26/18 21:59 04/02/18 14:40 Heparin Sodium (Porcine) (Heparin 5000 units/ml) 5,000 units EVERY 12 HOURS SUBQ 03/27/18 21:00 04/26/18 20:59 04/02/18 08:56 Heparin Sodium/ Sodium Chloride (Heparin 2000 units/Ns 1000ml premix) 2,000 unit ONCE PRN INJ PICC LINE 04/01/18 09:30 04/02/18 23:59 Hydralazine HCl (Apresoline) 25 mg EVERY 8 HOURS GT 03/28/18 14:00 04/26/18 21:59 04/02/18 13:54 Insulin Aspart (NovoLOG) Q6HR SUBQ 03/28/18 18:00 04/26/18 20:59 04/02/18 12:06 Lidocaine HCl (Xylocaine 1% 30ml) 30 ml ONCE PRN INJ PICC LINE 04/01/18 09:30 04/02/18 23:59 Lorazepam (Ativan 2mg/ml 1ml) 2 mg Q2H PRN IV For Anxiety 03/27/18 21:45 04/03/18 21:44 03/27/18 21:54 Morphine Sulfate (Morphine Sulfate) 2 mg Q4H PRN IVP Moderate Pain (Pain Scale 4-6) 03/27/18 21:45 04/03/18 19:44 Morphine Sulfate (Morphine Sulfate) 4 mg Q4H PRN IVP Severe Pain (Pain Scale 7-10) 03/27/18 21:45 04/03/18 21:44 Nitroglycerin (Ntg) 0.4 mg Q5MIN X 3 DOSES PRN SL Prn Chest Pain 03/27/18 20:00 04/26/18 19:59 Ondansetron HCl (Zofran) 4 mg Q6H PRN IVP Nausea & Vomiting 03/27/18 19:45 04/26/18 19:44 Pantoprazole (Protonix) 40 mg DAILY IVP 03/28/18 14:00 04/27/18 13:59 04/02/18 08:48 Piperacillin Sod/ Tazobactam Sod 3.375 gm/Dextrose 110 ml @ 27.5 mls/hr EVERY 8 HOURS IVPB 04/01/18 10:00 04/06/18 09:59 04/02/18 13:52 Polyethylene Glycol (Miralax) 17 gm DAILYPRN PRN ORAL Constipation 03/27/18 19:45 04/26/18 19:44 Temazepam (Restoril) 15 mg HSPRN PRN ORAL Insomnia 03/27/18 21:00 04/03/18 20:59 Angela Kendall M.D. Apr 02, 2018 15:46
[2018-04-02] MEDS: Dyna-Hex 2% Top Sol 2oz TOPIC SCH (20:28)
[2018-04-03] VITALS (16 sets, daily range): BP systolic 126–149; BP diastolic 43–63
[2018-04-03 05:12] LABS: BASOPHILS % (AUTO) 1.1 % (0.0-2.0); HEMATOCRIT 28.1 % (42.0-52.0); HEMOGLOBIN 9.3 G/DL (14.2-18.0); LYMPHOCYTES % (AUTO) 22.1 % (20.0-45.0); MEAN CORPUSCULAR VOLUME 85 FL (80-99); MONOCYTES % (AUTO) 6.5 % (1.0-10.0); NEUTROPHILS % (AUTO) 64.3 % (45.0-75.0); PLATELET COUNT 339 K/UL (150-450); RED CELL DISTRIBUTION WIDTH 12.6 % (11.6-14.8); WHITE BLOOD COUNT 8.2 K/UL (4.8-10.8)
[2018-04-03 05:49] LABS: ALANINE AMINOTRANSFERASE 31 U/L (12-78); ALBUMIN 2.2 G/DL (3.4-5.0); ALBUMIN/GLOBULIN RATIO 0.5 (1.0-2.7); ALKALINE PHOSPHATASE 88 U/L (46-116); ANION GAP 5 mmol/L (5-15); ASPARTATE AMINO TRANSFERASE 25 U/L (15-37); BILIRUBIN,TOTAL 0.3 MG/DL (0.2-1.0); BLOOD UREA NITROGEN 30 mg/dL (7-18); CALCIUM 8.9 MG/DL (8.5-10.1); CARBON DIOXIDE 29 MMOL/L (21-32); CHLORIDE 104 MMOL/L (98-107); CREATININE 1.6 MG/DL (0.55-1.30); PHOSPHORUS 3.6 MG/DL (2.5-4.9); POTASSIUM 3.7 MMOL/L (3.5-5.1); SODIUM 138 MMOL/L (136-145)
[2018-04-03] MEDS: HydrALAZINE 25mg tab GT SCH ×3 (05:50→21:12)
[2018-04-03] MEDS: Gabapentin 300 MG/6 ML Soln GT SCH ×3 (05:50→21:12)
[2018-04-03] MEDS: Piperacillin/Tazobactam 3.375 GM in D5W 110 ML IVPB SCH (05:50)
[2018-04-03] MEDS: NovoLOG Insulin Flexpen SUBQ SCH ×3 (06:42→17:42)
[2018-04-03] MEDS: Pantoprazole Inj IVP SCH (08:15)
[2018-04-03] MEDS: Heparin 5000 units/ml inj SUBQ SCH ×2 (08:17→21:14)
--- NOTE | 2018-04-03 09:14 | Diagnostic Imaging Report ---
Indication: Dyspnea Technique: One view of the chest Comparison: 2018 Findings: Interim removal of endotracheal tube. Right arm PICC remains in place. Right perihilar atelectasis or scarring, left basilar atelectasis or scarring persists, unchanged. There is probably a small right pleural effusion, unchanged. The heart remains enlarged Impression: Interim endotracheal extubation Otherwise stable findings as described
--- NOTE | 2018-04-03 10:01 | Pulmonolgy Critical Care Note ---
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, consultants, 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 - Objective Last 24 Hour Vital Signs Date Time Temp Pulse Resp B/P (MAP) Pulse Ox O2 Delivery O2 Flow Rate FiO2 04/03/18 08:15 66 148/56 04/03/18 07:24 66 24 Venturi Mask 8.0 30 04/03/18 07:19 Venturi Mask 8.0 30 04/03/18 07:19 100 Venturi Mask 8.0 30 04/03/18 07:00 66 19 148/56 (86) 100 04/03/18 06:00 62 19 145/59 (87) 100 04/03/18 05:50 144/57 04/03/18 05:00 71 19 144/57 (86) 99 04/03/18 04:00 63 04/03/18 04:00 97.8 71 19 126/50 (75) 99 04/03/18 04:00 Venturi Mask 10.0 Venturi Mask 10.0 04/03/18 03:00 67 20 129/43 (71) 99 04/03/18 02:00 69 20 142/52 (82) 99 04/03/18 01:00 71 20 148/51 (83) 99 04/03/18 00:00 Venturi Mask 10.0 Venturi Mask 10.0 04/03/18 00:00 98.0 73 23 141/54 (83) 99 04/03/18 00:00 72 04/02/18 23:00 73 20 136/51 (79) 99 04/02/18 22:00 73 20 133/62 (85) 94 04/02/18 21:59 131/53 04/02/18 21:00 71 20 131/53 (79) 94 04/02/18 20:00 Venturi Mask 10.0 Venturi Mask 10.0 04/02/18 20:00 98.1 74 20 140/54 (82) 94 04/02/18 20:00 71 04/02/18 19:17 95 Venturi Mask 8.0 30 04/02/18 19:17 Venturi Mask 8.0 30 04/02/18 19:00 64 20 122/72 (89) 99 04/02/18 18:17 Venturi Mask 8.0 30 04/02/18 18:17 92 Venturi Mask 8.0 30 04/02/18 18:00 64 23 120/72 (88) 99 04/02/18 17:00 98.4 64 23 129/54 (79) 99 04/02/18 16:00 61 04/02/18 16:00 66 25 133/72 (92) 94 04/02/18 16:00 Simple Mask 10.0 Simple Mask 10.0 04/02/18 15:00 63 21 142/54 (83) 99 04/02/18 14:00 63 23 144/57 (86) 100 04/02/18 13:54 147/54 04/02/18 13:00 62 23 148/57 (87) 92 04/02/18 12:00 Simple Mask 10.0 Simple Mask 10.0 04/02/18 12:00 62 23 139/54 (82) 97 04/02/18 12:00 97.8 04/02/18 12:00 58 04/02/18 11:40 Venturi Mask 8.0 30 04/02/18 11:00 60 24 132/56 (81) 98 Status: awake Condition: critical HEENT: atraumatic Neck: full ROM Heart: HR/BP stable, HR/BP unstable Abdomen: soft, non-tender Extremities: edema Decubiti: location Accucheck: 172 Critical Care - Subjective ROS Limited/Unobtainable: Yes Interval Events: tolerating extubation, Condition: critical FI02: 30 Vent Support Breath Rate: 16 Vent Support Mode: CPAP Vent Tidal Volume: 500 Sputum Amount: None PEEP: 5.0 PIP: 13 Tube Feeding Amount: 55 I&O: Intake and Output 04/02/18 04/03/18 19:00 07:00 Intake Total 1020.0 ml 860.0 ml Output Total 885 ml 980 ml Balance 135.0 ml -120.0 ml Intake Free Water 60 ml 90 ml IV Total 410.0 ml 110.0 ml Tube Feeding 550 ml 660 ml Output Urine Total 885 ml 980 ml # Bowel Movements 2 1 ET-Tube: 7.5 ET Position: 20 Labs: Laboratory Tests Test 04/03/18 04:00 04/03/18 07:40 White Blood Count 8.2 K/UL (4.8-10.8) Red Blood Count 3.30 M/UL (4.70-6.10) L Hemoglobin 9.3 G/DL (14.2-18.0) L Hematocrit 28.1 % (42.0-52.0) L Mean Corpuscular Volume 85 FL (80-99) Mean Corpuscular Hemoglobin 28.1 PG (27.0-31.0) Mean Corpuscular Hemoglobin Concent 33.0 G/DL (32.0-36.0) Red Cell Distribution Width 12.6 % (11.6-14.8) Platelet Count 339 K/UL (150-450) Mean Platelet Volume 7.8 FL (6.5-10.1) Neutrophils (%) (Auto) 64.3 % (45.0-75.0) Lymphocytes (%) (Auto) 22.1 % (20.0-45.0) Monocytes (%) (Auto) 6.5 % (1.0-10.0) Eosinophils (%) (Auto) 6.0 % (0.0-3.0) H Basophils (%) (Auto) 1.1 % (0.0-2.0) Sodium Level 138 MMOL/L (136-145) Potassium Level 3.7 MMOL/L (3.5-5.1) Chloride Level 104 MMOL/L (98-107) Carbon Dioxide Level 29 MMOL/L (21-32) Anion Gap 5 mmol/L (5-15) Blood Urea Nitrogen 30 mg/dL (7-18) H Creatinine 1.6 MG/DL (0.55-1.30) H Estimat Glomerular Filtration Rate mL/min (>60) Glucose Level 154 MG/DL (74-106) H Uric Acid 4.7 MG/DL (2.6-7.2) Calcium Level 8.9 MG/DL (8.5-10.1) Phosphorus Level 3.6 MG/DL (2.5-4.9) Magnesium Level 2.3 MG/DL (1.8-2.4) Total Bilirubin 0.3 MG/DL (0.2-1.0) Aspartate Amino Transf (AST/SGOT) 25 U/L (15-37) Alanine Aminotransferase (ALT/SGPT) 31 U/L (12-78) Alkaline Phosphatase 88 U/L (46-116) Pro-B-Type Natriuretic Peptide 1257 pg/mL (0-125) H Total Protein 7.0 G/DL (6.4-8.2) Albumin 2.2 G/DL (3.4-5.0) L Globulin 4.8 g/dL Albumin/Globulin Ratio 0.5 (1.0-2.7) L Arterial Blood pH 7.392 (7.350-7.450) Arterial Blood Partial Pressure CO2 45.7 mmHg (35.0-45.0) H Arterial Blood Partial Pressure O2 100.1 mmHg (75.0-100.0) H Arterial Blood HCO3 27.2 mmol/L (22.0-26.0) H Arterial Blood Oxygen Saturation 97.2 % (95-100) Arterial Blood Base Excess 1.9 (-2-2) Juan Carlos Test Positive Wang Guzman MD Apr 03, 2018 10:00
--- NOTE | 2018-04-03 10:43 | Infectious Diseases Prog Note ---
Assessment/Plan Assessment/Plan Probable PNA - Probable Influenza 04/02 CXR: There is some developing atelectasis in the right midlung. There is improved aeration of the left lung base. Lungs and pleural spaces are otherwise clear. 03/29 CXR: Persistent consolidation in bilateral medial lung bases concerning for atelectasis versus pneumonia. Persistent prominent increased interstitial markings. sp cxb #1: P, stuartii (R ance, amp, CTx, Cipro; otherwise S), P. mirabalis ESBL( S Zosyn) #2 PsA (bailey S), P. stuarti, P. mirabilis -CXR: Persistent right perihilar congestive change, left basilar atelectasis. -influenza sc neg -Bcx NTD Acute respiratory failure s/p intubation 03/28- likely combination of CHF and prob PNA -extubated 04/02 Fever, SP Leukocytosis, SP Sacral decub- no signs of infection -wound cx MRSA , ESBL P. mirabilis (colonizers) DM2 HTN CAD/CO HLD GERD CVA/TIA Chronic encephalopathy CHF Dementia renal disease dysphagia s/p G-tube SNF resident Plan: -Cont ZOsyn #3/5-7 for PNA based on culture results -04/01 SP IV Vancomycin #5, Cefepime #5, Tamiflu and Azithromycin d# 5 -f/u cx -Monitor CBC/CMP, temperatures -f/u legionella ag urine -aspiration precautions -ICU care Discussed with RN and micro lab staff Subjective Allergies: Coded Allergies: NO KNOWN DRUG ALLERGIES (Unverified Allergy, Unknown, 05/29/14) Subjective afebrile at 2l NC no leukocytosis Objective Vital Signs Last 24 Hour Vital Signs Date Time Temp Pulse Resp B/P (MAP) Pulse Ox O2 Delivery O2 Flow Rate FiO2 04/03/18 08:15 66 148/56 04/03/18 08:00 Nasal Cannula 2.0 Nasal Cannula 2.0 04/03/18 07:24 66 24 Venturi Mask 8.0 30 04/03/18 07:19 Venturi Mask 8.0 30 04/03/18 07:19 100 Venturi Mask 8.0 30 04/03/18 07:00 66 19 148/56 (86) 100 04/03/18 06:00 62 19 145/59 (87) 100 04/03/18 05:50 144/57 04/03/18 05:00 71 19 144/57 (86) 99 04/03/18 04:00 63 04/03/18 04:00 97.8 71 19 126/50 (75) 99 04/03/18 04:00 Venturi Mask 10.0 Venturi Mask 10.0 04/03/18 03:00 67 20 129/43 (71) 99 04/03/18 02:00 69 20 142/52 (82) 99 04/03/18 01:00 71 20 148/51 (83) 99 04/03/18 00:00 Venturi Mask 10.0 Venturi Mask 10.0 04/03/18 00:00 98.0 73 23 141/54 (83) 99 04/03/18 00:00 72 04/02/18 23:00 73 20 136/51 (79) 99 04/02/18 22:00 73 20 133/62 (85) 94 04/02/18 21:59 131/53 04/02/18 21:00 71 20 131/53 (79) 94 04/02/18 20:00 Venturi Mask 10.0 Venturi Mask 10.0 04/02/18 20:00 98.1 74 20 140/54 (82) 94 04/02/18 20:00 71 04/02/18 19:17 95 Venturi Mask 8.0 30 04/02/18 19:17 Venturi Mask 8.0 30 04/02/18 19:00 64 20 122/72 (89) 99 04/02/18 18:17 Venturi Mask 8.0 30 04/02/18 18:17 92 Venturi Mask 8.0 30 04/02/18 18:00 64 23 120/72 (88) 99 04/02/18 17:00 98.4 64 23 129/54 (79) 99 04/02/18 16:00 61 04/02/18 16:00 66 25 133/72 (92) 94 04/02/18 16:00 Simple Mask 10.0 Simple Mask 10.0 04/02/18 15:00 63 21 142/54 (83) 99 04/02/18 14:00 63 23 144/57 (86) 100 04/02/18 13:54 147/54 04/02/18 13:00 62 23 148/57 (87) 92 04/02/18 12:00 Simple Mask 10.0 Simple Mask 10.0 04/02/18 12:00 62 23 139/54 (82) 97 04/02/18 12:00 97.8 04/02/18 12:00 58 04/02/18 11:40 Venturi Mask 8.0 30 04/02/18 11:00 60 24 132/56 (81) 98 Height (Feet): 5 Height (Inches): 10.00 Weight (Pounds): 159 Objective General Appearance: no apparent distress, alert, non-toxic, cachetic, Chronically Ill HEENT: normocephalic, atraumati bilateral eye PERRL Neck: full range of motion, supple/symm/no masses Respiratory: chest non-tender, no respiratory distress, no retraction, no accessory muscle use, rhonchi Cardiovascular no edema, tachycardia, systolic murmur Gastrointestinal: normal bowel sounds, non tender, soft, non-distended, no guarding, no rebound, other - G-tube Musculoskeletal: normal range of motion, non-tender, other - atrophy diffusely Neurologic: alert, other - Unable to fully assess, grossly normal Skin: warm/dry, other - See detailed RN skin exam for DU Laboratory Tests Test 04/03/18 04:00 04/03/18 07:40 White Blood Count 8.2 K/UL (4.8-10.8) Red Blood Count 3.30 M/UL (4.70-6.10) L Hemoglobin 9.3 G/DL (14.2-18.0) L Hematocrit 28.1 % (42.0-52.0) L Mean Corpuscular Volume 85 FL (80-99) Mean Corpuscular Hemoglobin 28.1 PG (27.0-31.0) Mean Corpuscular Hemoglobin Concent 33.0 G/DL (32.0-36.0) Red Cell Distribution Width 12.6 % (11.6-14.8) Platelet Count 339 K/UL (150-450) Mean Platelet Volume 7.8 FL (6.5-10.1) Neutrophils (%) (Auto) 64.3 % (45.0-75.0) Lymphocytes (%) (Auto) 22.1 % (20.0-45.0) Monocytes (%) (Auto) 6.5 % (1.0-10.0) Eosinophils (%) (Auto) 6.0 % (0.0-3.0) H Basophils (%) (Auto) 1.1 % (0.0-2.0) Sodium Level 138 MMOL/L (136-145) Potassium Level 3.7 MMOL/L (3.5-5.1) Chloride Level 104 MMOL/L (98-107) Carbon Dioxide Level 29 MMOL/L (21-32) Anion Gap 5 mmol/L (5-15) Blood Urea Nitrogen 30 mg/dL (7-18) H Creatinine 1.6 MG/DL (0.55-1.30) H Estimat Glomerular Filtration Rate mL/min (>60) Glucose Level 154 MG/DL (74-106) H Uric Acid 4.7 MG/DL (2.6-7.2) Calcium Level 8.9 MG/DL (8.5-10.1) Phosphorus Level 3.6 MG/DL (2.5-4.9) Magnesium Level 2.3 MG/DL (1.8-2.4) Total Bilirubin 0.3 MG/DL (0.2-1.0) Aspartate Amino Transf (AST/SGOT) 25 U/L (15-37) Alanine Aminotransferase (ALT/SGPT) 31 U/L (12-78) Alkaline Phosphatase 88 U/L (46-116) Pro-B-Type Natriuretic Peptide 1257 pg/mL (0-125) H Total Protein 7.0 G/DL (6.4-8.2) Albumin 2.2 G/DL (3.4-5.0) L Globulin 4.8 g/dL Albumin/Globulin Ratio 0.5 (1.0-2.7) L Arterial Blood pH 7.392 (7.350-7.450) Arterial Blood Partial Pressure CO2 45.7 mmHg (35.0-45.0) H Arterial Blood Partial Pressure O2 100.1 mmHg (75.0-100.0) H Arterial Blood HCO3 27.2 mmol/L (22.0-26.0) H Arterial Blood Oxygen Saturation 97.2 % (95-100) Arterial Blood Base Excess 1.9 (-2-2) Juan Carlos Test Positive Current Medications Medications (Trade) Dose Ordered Sig/Dimas Route PRN Reason Start Time Stop Time Status Last Admin Dose Admin Acetaminophen (Tylenol) 650 mg Q4H PRN ORAL T>100.5 03/27/18 19:45 04/26/18 19:44 03/28/18 09:08 Amlodipine Besylate (Norvasc) 2.5 mg DAILY GT 03/29/18 09:00 04/27/18 08:59 04/03/18 08:15 Chlorhexidine Gluconate (Joanna-Hex 2%) 1 applic DAILY@2000 TOPIC 04/01/18 20:00 05/01/18 19:59 04/02/18 20:28 Dextrose (Dextrose 50%) 25 ml Q30M PRN IV Hypoglycemia 03/27/18 20:15 04/26/18 20:05 Dextrose (Dextrose 50%) 50 ml Q30M PRN IV hypoglycemia 03/27/18 20:15 04/26/18 20:14 Gabapentin (Neurontin) 300 mg Q8HR GT 03/27/18 22:00 04/26/18 21:59 04/03/18 05:50 Heparin Sodium (Porcine) (Heparin 5000 units/ml) 5,000 units EVERY 12 HOURS SUBQ 03/27/18 21:00 04/26/18 20:59 04/03/18 08:17 Hydralazine HCl (Apresoline) 25 mg EVERY 8 HOURS GT 03/28/18 14:00 04/26/18 21:59 04/03/18 05:50 Insulin Aspart (NovoLOG) Q6HR SUBQ 03/28/18 18:00 04/26/18 20:59 04/03/18 06:42 Lorazepam (Ativan 2mg/ml 1ml) 2 mg Q2H PRN IV For Anxiety 03/27/18 21:45 04/03/18 21:44 03/27/18 21:54 Morphine Sulfate (Morphine Sulfate) 2 mg Q4H PRN IVP Moderate Pain (Pain Scale 4-6) 03/27/18 21:45 04/03/18 19:44 Morphine Sulfate (Morphine Sulfate) 4 mg Q4H PRN IVP Severe Pain (Pain Scale 7-10) 03/27/18 21:45 04/03/18 21:44 Nitroglycerin (Ntg) 0.4 mg Q5MIN X 3 DOSES PRN SL Prn Chest Pain 03/27/18 20:00 04/26/18 19:59 Ondansetron HCl (Zofran) 4 mg Q6H PRN IVP Nausea & Vomiting 03/27/18 19:45 04/26/18 19:44 Pantoprazole (Protonix) 40 mg DAILY IVP 03/28/18 14:00 04/27/18 13:59 04/03/18 08:15 Piperacillin Sod/ Tazobactam Sod 4.5 gm/Sodium Chloride 110 ml @ 27.5 mls/hr EVERY 8 HOURS IVPB 04/03/18 14:00 04/08/18 13:59 Polyethylene Glycol (Miralax) 17 gm DAILYPRN PRN ORAL Constipation 03/27/18 19:45 04/26/18 19:44 Temazepam (Restoril) 15 mg HSPRN PRN ORAL Insomnia 03/27/18 21:00 04/03/18 20:59 Angela Kendall M.D. Apr 03, 2018 10:43
--- NOTE | 2018-04-03 13:15 | Nephrology Progress Note ---
Assessment/Plan Problem List: (1) ATN (acute tubular necrosis) (2) Acute respiratory failure (3) Hypernatremia Assessment Acute Renal Failure- PreRenal Azotemia / Dehydration Sepsis / Low BP Pneumonia Elevated Troponin Anemia Proteinuria / HypoAlbuminemia Plan K supplement D5W- down on rate Adjust BP meds urine studies monitor renal parameters Per orders Subjective ROS Limited/Unobtainable: No Objective Objective Last 24 Hour Vital Signs Date Time Temp Pulse Resp B/P (MAP) Pulse Ox O2 Delivery O2 Flow Rate FiO2 04/03/18 08:15 66 148/56 04/03/18 08:00 65 04/03/18 08:00 Nasal Cannula 2.0 Nasal Cannula 2.0 04/03/18 07:24 66 24 Venturi Mask 8.0 30 04/03/18 07:19 Venturi Mask 8.0 30 04/03/18 07:19 100 Venturi Mask 8.0 30 04/03/18 07:00 66 19 148/56 (86) 100 04/03/18 06:00 62 19 145/59 (87) 100 04/03/18 05:50 144/57 04/03/18 05:00 71 19 144/57 (86) 99 04/03/18 04:00 63 04/03/18 04:00 97.8 71 19 126/50 (75) 99 04/03/18 04:00 Venturi Mask 10.0 Venturi Mask 10.0 04/03/18 03:00 67 20 129/43 (71) 99 04/03/18 02:00 69 20 142/52 (82) 99 04/03/18 01:00 71 20 148/51 (83) 99 04/03/18 00:00 Venturi Mask 10.0 Venturi Mask 10.0 04/03/18 00:00 98.0 73 23 141/54 (83) 99 04/03/18 00:00 72 04/02/18 23:00 73 20 136/51 (79) 99 04/02/18 22:00 73 20 133/62 (85) 94 18 21:59 131/53 04/02/18 21:00 71 20 131/53 (79) 94 04/02/18 20:00 Venturi Mask 10.0 Venturi Mask 10.0 04/02/18 20:00 98.1 74 20 140/54 (82) 94 04/02/18 20:00 71 04/02/18 19:17 95 Venturi Mask 8.0 30 04/02/18 19:17 Venturi Mask 8.0 30 04/02/18 19:00 64 20 122/72 (89) 99 18 18:17 Venturi Mask 8.0 30 04/02/18 18:17 92 Venturi Mask 8.0 30 04/02/18 18:00 64 23 120/72 (88) 99 04/02/18 17:00 98.4 64 23 129/54 (79) 99 04/02/18 16:00 61 04/02/18 16:00 66 25 133/72 (92) 94 04/02/18 16:00 Simple Mask 10.0 Simple Mask 10.0 04/02/18 15:00 63 21 142/54 (83) 99 04/02/18 14:00 63 23 144/57 (86) 100 04/02/18 13:54 147/54 Intake and Output 04/02/18 04/03/18 19:00 07:00 Intake Total 1020.0 ml 860.0 ml Output Total 885 ml 980 ml Balance 135.0 ml -120.0 ml Intake Free Water 60 ml 90 ml IV Total 410.0 ml 110.0 ml Tube Feeding 550 ml 660 ml Output Urine Total 885 ml 980 ml # Bowel Movements 2 1 Laboratory Tests 04/03/18 04:00: White Blood Count 8.2, Red Blood Count 3.30L, Hemoglobin 9.3L, Hematocrit 28.1L , Mean Corpuscular Volume 85, Mean Corpuscular Hemoglobin 28.1, Mean Corpuscular Hemoglobin Concent 33.0, Red Cell Distribution Width 12.6, Platelet Count 339, Mean Platelet Volume 7.8, Neutrophils (%) (Auto) 64.3, Lymphocytes (% ) (Auto) 22.1, Monocytes (%) (Auto) 6.5, Eosinophils (%) (Auto) 6.0H, Basophils (%) (Auto) 1.1, Sodium Level 138, Potassium Level 3.7, Chloride Level 104, Carbon Dioxide Level 29, Anion Gap 5, Blood Urea Nitrogen 30H, Creatinine 1.6H, Estimat Glomerular Filtration Rate , Glucose Level 154H, Uric Acid 4.7, Calcium Level 8.9, Phosphorus Level 3.6, Magnesium Level 2.3, Total Bilirubin 0.3, Aspartate Amino Transf (AST/SGOT) 25, Alanine Aminotransferase (ALT/SGPT) 31, Alkaline Phosphatase 88, Pro-B-Type Natriuretic Peptide 1257H, Total Protein 7.0 , Albumin 2.2L, Globulin 4.8, Albumin/Globulin Ratio 0.5L 04/03/18 07:40: Arterial Blood pH 7.392, Arterial Blood Partial Pressure CO2 45.7H, Arterial Blood Partial Pressure O2 100.1H, Arterial Blood HCO3 27.2H, Arterial Blood Oxygen Saturation 97.2, Arterial Blood Base Excess 1.9, Juan Carlos Test Positive Height (Feet): 5 Height (Inches): 10.00 Weight (Pounds): 159 Neck: other - now extubated Respiratory/Chest: decreased breath sounds Abdomen: soft Hansel Kirkpatrick MD Apr 03, 2018 13:15
--- NOTE | 2018-04-03 13:55 | General Progress Note ---
Assessment/Plan Problem List: (1) ATN (acute tubular necrosis) ICD Codes: N17.0 - Acute kidney failure with tubular necrosis SNOMED: 15113314 (2) History of CVA (cerebrovascular accident) ICD Codes: Z86.73 - Personal history of transient ischemic attack (TIA), and cerebral infarction without residual deficits SNOMED: 381568058 (3) Diabetes ICD Codes: E11.9 - Type 2 diabetes mellitus without complications SNOMED: 96436410 (4) CHF (congestive heart failure) ICD Codes: I50.9 - Heart failure, unspecified SNOMED: 65265013 (5) HTN (hypertension) ICD Codes: I10 - Essential (primary) hypertension SNOMED: 83537364 (6) Acute respiratory failure ICD Codes: J96.00 - Acute respiratory failure, unspecified whether with hypoxia or hypercapnia SNOMED: 05280026 (7) PNA (pneumonia) ICD Codes: J18.9 - Pneumonia, unspecified organism SNOMED: 168642087 (8) Sepsis ICD Codes: A41.9 - Sepsis SNOMED: 96444791 Status: progressing Assessment/Plan vent abx bp bs control cbc bmp am ltach eval Subjective Constitutional: Reports: weakness Allergies: Coded Allergies: NO KNOWN DRUG ALLERGIES (Unverified Allergy, Unknown, 05/29/14) All Systems: reviewed and negative except above Subjective o2 nc sleepy in icu Objective Last 24 Hour Vital Signs Date Time Temp Pulse Resp B/P (MAP) Pulse Ox O2 Delivery O2 Flow Rate FiO2 04/03/18 13:00 61 19 146/56 (86) 100 04/03/18 12:00 Nasal Cannula 2.0 Nasal Cannula 2.0 04/03/18 12:00 58 19 146/56 (86) 100 04/03/18 12:00 67 04/03/18 11:00 56 19 149/60 (89) 100 04/03/18 10:00 65 19 144/62 (89) 100 04/03/18 09:00 62 19 147/60 (89) 100 04/03/18 08:15 66 148/56 04/03/18 08:00 65 04/03/18 08:00 Nasal Cannula 2.0 Nasal Cannula 2.0 04/03/18 08:00 98.7 63 19 139/53 (81) 100 04/03/18 07:24 66 24 Venturi Mask 8.0 30 04/03/18 07:19 Venturi Mask 8.0 30 04/03/18 07:19 100 Venturi Mask 8.0 30 04/03/18 07:00 66 19 148/56 (86) 100 04/03/18 06:00 62 19 145/59 (87) 100 04/03/18 05:50 144/57 04/03/18 05:00 71 19 144/57 (86) 99 04/03/18 04:00 63 04/03/18 04:00 97.8 71 19 126/50 (75) 99 04/03/18 04:00 Venturi Mask 10.0 Venturi Mask 10.0 04/03/18 03:00 67 20 129/43 (71) 99 04/03/18 02:00 69 20 142/52 (82) 99 04/03/18 01:00 71 20 148/51 (83) 99 04/03/18 00:00 Venturi Mask 10.0 Venturi Mask 10.0 04/03/18 00:00 98.0 73 23 141/54 (83) 99 04/03/18 00:00 72 04/02/18 23:00 73 20 136/51 (79) 99 04/02/18 22:00 73 20 133/62 (85) 94 04/02/18 21:59 131/53 04/02/18 21:00 71 20 131/53 (79) 94 04/02/18 20:00 Venturi Mask 10.0 Venturi Mask 10.0 04/02/18 20:00 98.1 74 20 140/54 (82) 94 04/02/18 20:00 71 04/02/18 19:17 95 Venturi Mask 8.0 30 04/02/18 19:17 Venturi Mask 8.0 30 04/02/18 19:00 64 20 122/72 (89) 99 04/02/18 18:17 Venturi Mask 8.0 30 04/02/18 18:17 92 Venturi Mask 8.0 30 04/02/18 18:00 64 23 120/72 (88) 99 04/02/18 17:00 98.4 64 23 129/54 (79) 99 04/02/18 16:00 61 04/02/18 16:00 66 25 133/72 (92) 94 04/02/18 16:00 Simple Mask 10.0 Simple Mask 10.0 04/02/18 15:00 63 21 142/54 (83) 99 04/02/18 14:00 63 23 144/57 (86) 100 Intake and Output 04/02/18 04/03/18 19:00 07:00 Intake Total 1020.0 ml 860.0 ml Output Total 885 ml 980 ml Balance 135.0 ml -120.0 ml Intake Free Water 60 ml 90 ml IV Total 410.0 ml 110.0 ml Tube Feeding 550 ml 660 ml Output Urine Total 885 ml 980 ml # Bowel Movements 2 1 Laboratory Tests 04/03/18 04:00: White Blood Count 8.2, Red Blood Count 3.30L, Hemoglobin 9.3L, Hematocrit 28.1L , Mean Corpuscular Volume 85, Mean Corpuscular Hemoglobin 28.1, Mean Corpuscular Hemoglobin Concent 33.0, Red Cell Distribution Width 12.6, Platelet Count 339, Mean Platelet Volume 7.8, Neutrophils (%) (Auto) 64.3, Lymphocytes (% ) (Auto) 22.1, Monocytes (%) (Auto) 6.5, Eosinophils (%) (Auto) 6.0H, Basophils (%) (Auto) 1.1, Sodium Level 138, Potassium Level 3.7, Chloride Level 104, Carbon Dioxide Level 29, Anion Gap 5, Blood Urea Nitrogen 30H, Creatinine 1.6H, Estimat Glomerular Filtration Rate , Glucose Level 154H, Uric Acid 4.7, Calcium Level 8.9, Phosphorus Level 3.6, Magnesium Level 2.3, Total Bilirubin 0.3, Aspartate Amino Transf (AST/SGOT) 25, Alanine Aminotransferase (ALT/SGPT) 31, Alkaline Phosphatase 88, Pro-B-Type Natriuretic Peptide 1257H, Total Protein 7.0 , Albumin 2.2L, Globulin 4.8, Albumin/Globulin Ratio 0.5L 04/03/18 07:40: Arterial Blood pH 7.392, Arterial Blood Partial Pressure CO2 45.7H, Arterial Blood Partial Pressure O2 100.1H, Arterial Blood HCO3 27.2H, Arterial Blood Oxygen Saturation 97.2, Arterial Blood Base Excess 1.9, Juan Carlos Test Positive Height (Feet): 5 Height (Inches): 10.00 Weight (Pounds): 159 General Appearance: lethargic EENT: normal ENT inspection Neck: normal alignment Cardiovascular: normal peripheral pulses, normal rate, regular rhythm Respiratory/Chest: chest wall non-tender, decreased breath sounds Abdomen: normal bowel sounds, non tender, soft Extremities: normal inspection Edema: no edema noted Arm (L), no edema noted Arm (R), no edema noted Leg (L), no edema noted Leg (R), no edema noted Pedal (L), no edema noted Pedal (R), no edema noted Generalized Neurologic: motor weakness Skin: normal pigmentation, warm/dry Remberto Joe DO Apr 03, 2018 13:55
[2018-04-03] MEDS ORDERED: Zosyn 4.5gm q8h **Extended infusion IVPB SCH ×2 (14:00)
[2018-04-03] MEDS ORDERED: Morphine Sulfate 2mg/ml Inj IVP PRN (14:25)
[2018-04-03] MEDS ORDERED: LORazepam Inj 2mg/ml 1ml IV PRN (14:25)
[2018-04-03] MEDS ORDERED: Miralax 17gm pkt ORAL PRN (14:26)
[2018-04-03] MEDS ORDERED: Morphine Sulfate 4mg/ml Inj (IV/IM USE ONLY) IVP PRN (14:26)
[2018-04-03] MEDS ORDERED: Nitroglycerin Subl 0.4mg tab SL PRN (14:30)
[2018-04-03] MEDS: Dyna-Hex 2% Top Sol 2oz TOPIC SCH (21:12)
[2018-04-03] MEDS: Piperacillin/Tazobactam 4.5 GM in NS 110 ML IVPB SCH (21:13)
[2018-04-04] VITALS: BP 148/78
[2018-04-04] MEDS: NovoLOG Insulin Flexpen SUBQ SCH ×4 (00:43→17:39)
[2018-04-04 04:00] VITALS: BP 154/68
[2018-04-04] MEDS: Piperacillin/Tazobactam 4.5 GM in NS 110 ML IVPB SCH ×3 (05:49→21:14)
[2018-04-04] MEDS: Gabapentin 300 MG/6 ML Soln GT SCH ×3 (05:49→21:14)
[2018-04-04] MEDS: HydrALAZINE 25mg tab GT SCH ×3 (05:49→21:15)
[2018-04-04 06:44] LABS: BASOPHILS % (AUTO) 1.2 % (0.0-2.0); EOSINOPHILS % (AUTO) 4.9 % (0.0-3.0); HEMATOCRIT 28.8 % (42.0-52.0); HEMOGLOBIN 9.5 G/DL (14.2-18.0); MEAN CORPUSCULAR VOLUME 86 FL (80-99); NEUTROPHILS % (AUTO) 64.9 % (45.0-75.0); PLATELET COUNT 393 K/UL (150-450); RED BLOOD COUNT 3.37 M/UL (4.70-6.10); RED CELL DISTRIBUTION WIDTH 12.5 % (11.6-14.8); WHITE BLOOD COUNT 7.9 K/UL (4.8-10.8)
[2018-04-04 07:06] LABS: ALANINE AMINOTRANSFERASE 29 U/L (12-78); ALBUMIN 2.3 G/DL (3.4-5.0); ALBUMIN/GLOBULIN RATIO 0.5 (1.0-2.7); ALKALINE PHOSPHATASE 89 U/L (46-116); ANION GAP 6 mmol/L (5-15); ASPARTATE AMINO TRANSFERASE 21 U/L (15-37); BILIRUBIN,TOTAL 0.3 MG/DL (0.2-1.0); BLOOD UREA NITROGEN 26 mg/dL (7-18); CARBON DIOXIDE 30 MMOL/L (21-32); CHLORIDE 104 MMOL/L (98-107); CREATININE 1.6 MG/DL (0.55-1.30); PHOSPHORUS 3.6 MG/DL (2.5-4.9); POTASSIUM 3.9 MMOL/L (3.5-5.1); SODIUM 140 MMOL/L (136-145)
[2018-04-04 08:00] VITALS: BP 144/64
[2018-04-04] MEDS: Pantoprazole Inj IVP SCH (09:42)
[2018-04-04] MEDS: Heparin 5000 units/ml inj SUBQ SCH ×2 (09:44→20:35)
[2018-04-04] MEDS ORDERED: NS 275ml ONE (09:55)
[2018-04-04] MEDS ORDERED: Tubing IV Secondary IV ONE (09:55)
--- NOTE | 2018-04-04 11:11 | General Progress Note ---
Assessment/Plan Problem List: (1) ATN (acute tubular necrosis) ICD Codes: N17.0 - Acute kidney failure with tubular necrosis SNOMED: 14302727 (2) History of CVA (cerebrovascular accident) ICD Codes: Z86.73 - Personal history of transient ischemic attack (TIA), and cerebral infarction without residual deficits SNOMED: 607770946 (3) Diabetes ICD Codes: E11.9 - Type 2 diabetes mellitus without complications SNOMED: 73301002 (4) CHF (congestive heart failure) ICD Codes: I50.9 - Heart failure, unspecified SNOMED: 73763416 (5) HTN (hypertension) ICD Codes: I10 - Essential (primary) hypertension SNOMED: 30958901 (6) Acute respiratory failure ICD Codes: J96.00 - Acute respiratory failure, unspecified whether with hypoxia or hypercapnia SNOMED: 08312869 (7) PNA (pneumonia) ICD Codes: J18.9 - Pneumonia, unspecified organism SNOMED: 280795718 (8) Sepsis ICD Codes: A41.9 - Sepsis SNOMED: 69288870 Status: stable, progressing Assessment/Plan vent abx bp bs control cbc bmp am dc plan snf Subjective Constitutional: Reports: weakness Allergies: Coded Allergies: NO KNOWN DRUG ALLERGIES (Unverified Allergy, Unknown, 05/29/14) All Systems: reviewed and negative except above Subjective o2 nc sleepy Objective Last 24 Hour Vital Signs Date Time Temp Pulse Resp B/P (MAP) Pulse Ox O2 Delivery O2 Flow Rate FiO2 04/04/18 09:43 65 144/64 04/04/18 09:00 Nasal Cannula 2.0 Nasal Cannula 2.0 04/04/18 08:00 97.7 65 20 144/64 (90) 100 04/04/18 07:10 Nasal Cannula 2.0 04/04/18 07:10 99 Nasal Cannula 2.0 04/04/18 07:10 68 16 Nasal Cannula 2.0 04/04/18 05:49 154/68 04/04/18 04:00 97.9 70 20 154/68 (96) 100 04/04/18 00:00 97.9 72 20 148/78 (101) 100 04/03/18 21:30 99 Nasal Cannula 2.0 28 04/03/18 21:30 62 20 Nasal Cannula 2.0 28 04/03/18 21:30 Nasal Cannula 2.0 28 04/03/18 21:12 147/63 04/03/18 21:00 Nasal Cannula 2.0 Nasal Cannula 2.0 04/03/18 20:00 97.8 67 20 147/63 (91) 94 04/03/18 14:00 63 19 148/51 (83) 100 04/03/18 13:52 146/56 04/03/18 13:00 61 19 146/56 (86) 100 04/03/18 12:00 Nasal Cannula 2.0 Nasal Cannula 2.0 04/03/18 12:00 58 19 146/56 (86) 100 04/03/18 12:00 67 Intake and Output 04/03/18 04/04/18 19:00 07:00 Intake Total 815 ml 897.5 ml Output Total 970 ml 850 ml Balance -155 ml 47.5 ml Intake Free Water 100 ml 100 ml IV Total 137.5 ml Tube Feeding 715 ml 660 ml Output Urine Total 970 ml 850 ml # Bowel Movements 3 3 Laboratory Tests 04/04/18 05:00: White Blood Count 7.9, Red Blood Count 3.37L, Hemoglobin 9.5L, Hematocrit 28.8L , Mean Corpuscular Volume 86, Mean Corpuscular Hemoglobin 28.3, Mean Corpuscular Hemoglobin Concent 33.1, Red Cell Distribution Width 12.5, Platelet Count 393, Mean Platelet Volume 7.1, Neutrophils (%) (Auto) 64.9, Lymphocytes (% ) (Auto) 22.0, Monocytes (%) (Auto) 7.0, Eosinophils (%) (Auto) 4.9H, Basophils (%) (Auto) 1.2, Sodium Level 140, Potassium Level 3.9, Chloride Level 104, Carbon Dioxide Level 30, Anion Gap 6, Blood Urea Nitrogen 26H, Creatinine 1.6H, Estimat Glomerular Filtration Rate , Glucose Level 154H, Calcium Level 9.0, Phosphorus Level 3.6, Magnesium Level 2.3, Total Bilirubin 0.3, Aspartate Amino Transf (AST/SGOT) 21, Alanine Aminotransferase (ALT/SGPT) 29, Alkaline Phosphatase 89, Total Protein 7.1, Albumin 2.3L, Globulin 4.8, Albumin/Globulin Ratio 0.5L Height (Feet): 5 Height (Inches): 10.00 Weight (Pounds): 162 General Appearance: lethargic EENT: normal ENT inspection Neck: normal alignment Cardiovascular: normal peripheral pulses, normal rate, regular rhythm Respiratory/Chest: chest wall non-tender, decreased breath sounds Abdomen: normal bowel sounds, non tender, soft Extremities: normal inspection Edema: no edema noted Arm (L), no edema noted Arm (R), no edema noted Leg (L), no edema noted Leg (R), no edema noted Pedal (L), no edema noted Pedal (R), no edema noted Generalized Neurologic: motor weakness Skin: normal pigmentation, warm/dry Remberto Joe DO Apr 04, 2018 11:11
[2018-04-04 12:00] VITALS: BP 134/77
--- NOTE | 2018-04-04 12:49 | Infectious Diseases Prog Note ---
Assessment/Plan Assessment/Plan Probable PNA - Probable Influenza 04/02 CXR: There is some developing atelectasis in the right midlung. There is improved aeration of the left lung base. Lungs and pleural spaces are otherwise clear. 03/29 CXR: Persistent consolidation in bilateral medial lung bases concerning for atelectasis versus pneumonia. Persistent prominent increased interstitial markings. sp cxb #1: P, stuartii (R ance, amp, CTx, Cipro; otherwise S), P. mirabalis ESBL( S Zosyn) #2 PsA (bailey S), P. stuarti, P. mirabilis -CXR: Persistent right perihilar congestive change, left basilar atelectasis. -influenza sc neg -Bcx NTD Acute respiratory failure s/p intubation 03/28- likely combination of CHF and prob PNA -extubated 04/02 Fever, SP Leukocytosis, SP Sacral decub- no signs of infection -wound cx MRSA , ESBL P. mirabilis (colonizers) DM2 HTN CAD/MS HLD GERD CVA/TIA Chronic encephalopathy CHF Dementia renal disease dysphagia s/p G-tube SNF resident Plan: -Cont ZOsyn #4/5-7 for PNA based on culture results -04/01 SP IV Vancomycin #5, Cefepime #5, Tamiflu and Azithromycin d# 5 -f/u cx -Monitor CBC/CMP, temperatures -f/u legionella ag urine -aspiration precautions -ICU care Discussed with RN and micro lab staff Subjective Allergies: Coded Allergies: NO KNOWN DRUG ALLERGIES (Unverified Allergy, Unknown, 05/29/14) Subjective afebrile at 2l NC no leukocytosis now transferred to [facility] Objective Vital Signs Last 24 Hour Vital Signs Date Time Temp Pulse Resp B/P (MAP) Pulse Ox O2 Delivery O2 Flow Rate FiO2 04/04/18 12:00 97.3 64 20 134/77 (96) 100 04/04/18 09:43 65 144/64 04/04/18 09:00 Nasal Cannula 2.0 Nasal Cannula 2.0 04/04/18 08:00 97.7 65 20 144/64 (90) 100 04/04/18 07:10 Nasal Cannula 2.0 28 04/04/18 07:10 99 Nasal Cannula 2.0 28 04/04/18 07:10 68 16 Nasal Cannula 2.0 28 04/04/18 05:49 154/68 04/04/18 04:00 97.9 70 20 154/68 (96) 100 04/04/18 00:00 97.9 72 20 148/78 (101) 100 04/03/18 21:30 99 Nasal Cannula 2.0 28 04/03/18 21:30 62 20 Nasal Cannula 2.0 28 04/03/18 21:30 Nasal Cannula 2.0 28 04/03/18 21:12 147/63 04/03/18 21:00 Nasal Cannula 2.0 Nasal Cannula 2.0 04/03/18 20:00 97.8 67 20 147/63 (91) 94 04/03/18 14:00 63 19 148/51 (83) 100 04/03/18 13:52 146/56 04/03/18 13:00 61 19 146/56 (86) 100 Height (Feet): 5 Height (Inches): 10.00 Weight (Pounds): 162 Objective General Appearance: no apparent distress, alert, non-toxic, cachetic, Chronically Ill HEENT: normocephalic, atraumati bilateral eye PERRL Neck: full range of motion, supple/symm/no masses Respiratory: chest non-tender, no respiratory distress, no retraction, no accessory muscle use, rhonchi Cardiovascular no edema, tachycardia, systolic murmur Gastrointestinal: normal bowel sounds, non tender, soft, non-distended, no guarding, no rebound, other - G-tube Musculoskeletal: normal range of motion, non-tender, other - atrophy diffusely Neurologic: alert, other - Unable to fully assess, grossly normal Skin: warm/dry, other - See detailed RN skin exam for DU Laboratory Tests Test 04/04/18 05:00 White Blood Count 7.9 K/UL (4.8-10.8) Red Blood Count 3.37 M/UL (4.70-6.10) L Hemoglobin 9.5 G/DL (14.2-18.0) L Hematocrit 28.8 % (42.0-52.0) L Mean Corpuscular Volume 86 FL (80-99) Mean Corpuscular Hemoglobin 28.3 PG (27.0-31.0) Mean Corpuscular Hemoglobin Concent 33.1 G/DL (32.0-36.0) Red Cell Distribution Width 12.5 % (11.6-14.8) Platelet Count 393 K/UL (150-450) Mean Platelet Volume 7.1 FL (6.5-10.1) Neutrophils (%) (Auto) 64.9 % (45.0-75.0) Lymphocytes (%) (Auto) 22.0 % (20.0-45.0) Monocytes (%) (Auto) 7.0 % (1.0-10.0) Eosinophils (%) (Auto) 4.9 % (0.0-3.0) H Basophils (%) (Auto) 1.2 % (0.0-2.0) Sodium Level 140 MMOL/L (136-145) Potassium Level 3.9 MMOL/L (3.5-5.1) Chloride Level 104 MMOL/L (98-107) Carbon Dioxide Level 30 MMOL/L (21-32) Anion Gap 6 mmol/L (5-15) Blood Urea Nitrogen 26 mg/dL (7-18) H Creatinine 1.6 MG/DL (0.55-1.30) H Estimat Glomerular Filtration Rate mL/min (>60) Glucose Level 154 MG/DL (74-106) H Calcium Level 9.0 MG/DL (8.5-10.1) Phosphorus Level 3.6 MG/DL (2.5-4.9) Magnesium Level 2.3 MG/DL (1.8-2.4) Total Bilirubin 0.3 MG/DL (0.2-1.0) Aspartate Amino Transf (AST/SGOT) 21 U/L (15-37) Alanine Aminotransferase (ALT/SGPT) 29 U/L (12-78) Alkaline Phosphatase 89 U/L (46-116) Total Protein 7.1 G/DL (6.4-8.2) Albumin 2.3 G/DL (3.4-5.0) L Globulin 4.8 g/dL Albumin/Globulin Ratio 0.5 (1.0-2.7) L Current Medications Medications (Trade) Dose Ordered Sig/Dimas Route PRN Reason Start Time Stop Time Status Last Admin Dose Admin Acetaminophen (Tylenol) 650 mg Q4H PRN ORAL T>100.5 04/03/18 14:24 04/26/18 14:23 Amlodipine Besylate (Norvasc) 2.5 mg DAILY GT 04/04/18 09:00 04/27/18 08:59 04/04/18 09:43 Chlorhexidine Gluconate (Joanna-Hex 2%) 1 applic DAILY@2000 TOPIC 04/03/18 20:00 05/01/18 19:59 04/03/18 21:12 Dextrose (Dextrose 50%) 25 ml Q30M PRN IV Hypoglycemia 04/03/18 14:45 04/26/18 20:05 Dextrose (Dextrose 50%) 50 ml Q30M PRN IV hypoglycemia 04/03/18 14:45 04/26/18 20:14 Gabapentin (Neurontin) 300 mg Q8HR GT 04/03/18 22:00 04/26/18 21:59 04/04/18 05:49 Heparin Sodium (Porcine) (Heparin 5000 units/ml) 5,000 units EVERY 12 HOURS SUBQ 04/03/18 21:00 04/26/18 20:59 04/04/18 09:44 Hydralazine HCl (Apresoline) 25 mg EVERY 8 HOURS GT 04/03/18 22:00 04/26/18 21:59 04/04/18 05:49 Insulin Aspart (NovoLOG) Q6HR SUBQ 04/03/18 18:00 04/26/18 20:59 04/04/18 11:46 Nitroglycerin (Ntg) 0.4 mg Q5MIN X 3 DOSES PRN SL Prn Chest Pain 04/03/18 14:30 04/26/18 19:59 Ondansetron HCl (Zofran) 4 mg Q6H PRN IVP Nausea & Vomiting 04/03/18 14:26 04/26/18 14:25 Pantoprazole (Protonix) 40 mg DAILY IVP 04/04/18 09:00 04/27/18 13:59 04/04/18 09:42 Piperacillin Sod/ Tazobactam Sod 4.5 gm/Sodium Chloride 110 ml @ 27.5 mls/hr EVERY 8 HOURS IVPB 04/03/18 22:00 04/08/18 13:59 04/04/18 05:49 Polyethylene Glycol (Miralax) 17 gm DAILYPRN PRN ORAL Constipation 04/03/18 14:26 04/26/18 14:25 Temazepam (Restoril) 15 mg HSPRN PRN ORAL Insomnia 04/03/18 21:00 04/04/18 20:59 Angela Kendall M.D. Apr 04, 2018 12:49
--- NOTE | 2018-04-04 15:25 | Nephrology Progress Note ---
Assessment/Plan Problem List: (1) ATN (acute tubular necrosis) (2) Acute respiratory failure (3) Hypernatremia Assessment Acute Renal Failure- PreRenal Azotemia / Dehydration Sepsis / Low BP Pneumonia Elevated Troponin Anemia Proteinuria / HypoAlbuminemia Plan K supplement D5W- down on rate Adjust BP meds urine studies monitor renal parameters Per orders Dc planning ?? Subjective ROS Limited/Unobtainable: No Constitutional: Reports: malaise Objective Objective Last 24 Hour Vital Signs Date Time Temp Pulse Resp B/P (MAP) Pulse Ox O2 Delivery O2 Flow Rate FiO2 04/04/18 14:09 134/77 04/04/18 12:00 97.3 64 20 134/77 (96) 100 04/04/18 09:43 65 144/64 04/04/18 09:00 Nasal Cannula 2.0 Nasal Cannula 2.0 04/04/18 08:00 97.7 65 20 144/64 (90) 100 04/04/18 07:10 Nasal Cannula 2.0 28 04/04/18 07:10 99 Nasal Cannula 2.0 28 04/04/18 07:10 68 16 Nasal Cannula 2.0 28 04/04/18 05:49 154/68 04/04/18 04:00 97.9 70 20 154/68 (96) 100 04/04/18 00:00 97.9 72 20 148/78 (101) 100 04/03/18 21:30 99 Nasal Cannula 2.0 28 04/03/18 21:30 62 20 Nasal Cannula 2.0 28 04/03/18 21:30 Nasal Cannula 2.0 28 04/03/18 21:12 147/63 04/03/18 21:00 Nasal Cannula 2.0 Nasal Cannula 2.0 04/03/18 20:00 97.8 67 20 147/63 (91) 94 Intake and Output 04/03/18 04/04/18 19:00 07:00 Intake Total 815 ml 897.5 ml Output Total 970 ml 850 ml Balance -155 ml 47.5 ml Intake Free Water 100 ml 100 ml IV Total 137.5 ml Tube Feeding 715 ml 660 ml Output Urine Total 970 ml 850 ml # Bowel Movements 3 3 Laboratory Tests 04/04/18 05:00: White Blood Count 7.9, Red Blood Count 3.37L, Hemoglobin 9.5L, Hematocrit 28.8L , Mean Corpuscular Volume 86, Mean Corpuscular Hemoglobin 28.3, Mean Corpuscular Hemoglobin Concent 33.1, Red Cell Distribution Width 12.5, Platelet Count 393, Mean Platelet Volume 7.1, Neutrophils (%) (Auto) 64.9, Lymphocytes (% ) (Auto) 22.0, Monocytes (%) (Auto) 7.0, Eosinophils (%) (Auto) 4.9H, Basophils (%) (Auto) 1.2, Sodium Level 140, Potassium Level 3.9, Chloride Level 104, Carbon Dioxide Level 30, Anion Gap 6, Blood Urea Nitrogen 26H, Creatinine 1.6H, Estimat Glomerular Filtration Rate , Glucose Level 154H, Calcium Level 9.0, Phosphorus Level 3.6, Magnesium Level 2.3, Total Bilirubin 0.3, Aspartate Amino Transf (AST/SGOT) 21, Alanine Aminotransferase (ALT/SGPT) 29, Alkaline Phosphatase 89, Total Protein 7.1, Albumin 2.3L, Globulin 4.8, Albumin/Globulin Ratio 0.5L Height (Feet): 5 Height (Inches): 10.00 Weight (Pounds): 162 General Appearance: no apparent distress Cardiovascular: normal rate Respiratory/Chest: decreased breath sounds Abdomen: soft Objective no change Hansel Kirkpatrick MD Apr 04, 2018 15:25
--- NOTE | 2018-04-04 15:47 | Pulmonology Progress Note ---
Assessment/Plan Problems: (1) Acute respiratory failure (2) PNA (pneumonia) (3) Sepsis (4) HTN (hypertension) (5) Diabetes (6) History of CVA (cerebrovascular accident) (7) Feeding by G-tube (8) Dementia Assessment/Plan improving continue abx check electrolytes sliding scale dc planning Subjective ROS Limited/Unobtainable: No Constitutional: Reports: no symptoms HEENT: Repors: no symptoms Respiratory: Reports: no symptoms Allergies: Coded Allergies: NO KNOWN DRUG ALLERGIES (Unverified Allergy, Unknown, 05/29/14) Objective Last 24 Hour Vital Signs Date Time Temp Pulse Resp B/P (MAP) Pulse Ox O2 Delivery O2 Flow Rate FiO2 04/04/18 14:09 134/77 04/04/18 12:00 97.3 64 20 134/77 (96) 100 04/04/18 09:43 65 144/64 04/04/18 09:00 Nasal Cannula 2.0 Nasal Cannula 2.0 04/04/18 08:00 97.7 65 20 144/64 (90) 100 04/04/18 07:10 Nasal Cannula 2.0 28 04/04/18 07:10 99 Nasal Cannula 2.0 28 04/04/18 07:10 68 16 Nasal Cannula 2.0 28 04/04/18 05:49 154/68 04/04/18 04:00 97.9 70 20 154/68 (96) 100 04/04/18 00:00 97.9 72 20 148/78 (101) 100 04/03/18 21:30 99 Nasal Cannula 2.0 28 04/03/18 21:30 62 20 Nasal Cannula 2.0 28 04/03/18 21:30 Nasal Cannula 2.0 28 04/03/18 21:12 147/63 04/03/18 21:00 Nasal Cannula 2.0 Nasal Cannula 2.0 04/03/18 20:00 97.8 67 20 147/63 (91) 94 Intake and Output 04/03/18 04/04/18 19:00 07:00 Intake Total 815 ml 897.5 ml Output Total 970 ml 850 ml Balance -155 ml 47.5 ml Intake Free Water 100 ml 100 ml IV Total 137.5 ml Tube Feeding 715 ml 660 ml Output Urine Total 970 ml 850 ml # Bowel Movements 3 3 General Appearance: WD/WN HEENT: normocephalic Respiratory/Chest: chest wall non-tender, lungs clear Cardiovascular: regularly irregular Abdomen: no organomegaly Extremities: no clubbing Skin: no rash Laboratory Tests 04/04/18 05:00: White Blood Count 7.9, Red Blood Count 3.37L, Hemoglobin 9.5L, Hematocrit 28.8L , Mean Corpuscular Volume 86, Mean Corpuscular Hemoglobin 28.3, Mean Corpuscular Hemoglobin Concent 33.1, Red Cell Distribution Width 12.5, Platelet Count 393, Mean Platelet Volume 7.1, Neutrophils (%) (Auto) 64.9, Lymphocytes (% ) (Auto) 22.0, Monocytes (%) (Auto) 7.0, Eosinophils (%) (Auto) 4.9H, Basophils (%) (Auto) 1.2, Sodium Level 140, Potassium Level 3.9, Chloride Level 104, Carbon Dioxide Level 30, Anion Gap 6, Blood Urea Nitrogen 26H, Creatinine 1.6H, Estimat Glomerular Filtration Rate , Glucose Level 154H, Calcium Level 9.0, Phosphorus Level 3.6, Magnesium Level 2.3, Total Bilirubin 0.3, Aspartate Amino Transf (AST/SGOT) 21, Alanine Aminotransferase (ALT/SGPT) 29, Alkaline Phosphatase 89, Total Protein 7.1, Albumin 2.3L, Globulin 4.8, Albumin/Globulin Ratio 0.5L Current Medications Medications (Trade) Dose Ordered Sig/Dimas Route PRN Reason Start Time Stop Time Status Last Admin Dose Admin Acetaminophen (Tylenol) 650 mg Q4H PRN ORAL T>100.5 04/03/18 14:24 04/26/18 14:23 Amlodipine Besylate (Norvasc) 2.5 mg DAILY GT 04/04/18 09:00 04/27/18 08:59 04/04/18 09:43 Chlorhexidine Gluconate (Joanna-Hex 2%) 1 applic DAILY@1999 TOPIC 04/03/18 20:00 05/01/18 19:59 04/03/18 21:12 Dextrose (Dextrose 50%) 25 ml Q30M PRN IV Hypoglycemia 04/03/18 14:45 04/26/18 20:05 Dextrose (Dextrose 50%) 50 ml Q30M PRN IV hypoglycemia 04/03/18 14:45 1/5/19 20:14 Gabapentin (Neurontin) 300 mg Q8HR GT 04/03/18 22:00 04/26/18 21:59 04/04/18 14:08 Heparin Sodium (Porcine) (Heparin 5000 units/ml) 5,000 units EVERY 12 HOURS SUBQ 04/03/18 21:00 04/26/18 20:59 04/04/18 09:44 Hydralazine HCl (Apresoline) 25 mg EVERY 8 HOURS GT 04/03/18 22:00 04/26/18 21:59 04/04/18 14:09 Insulin Aspart (NovoLOG) Q6HR SUBQ 04/03/18 18:00 04/26/18 20:59 04/04/18 11:46 Nitroglycerin (Ntg) 0.4 mg Q5MIN X 3 DOSES PRN SL Prn Chest Pain 04/03/18 14:30 04/26/18 19:59 Ondansetron HCl (Zofran) 4 mg Q6H PRN IVP Nausea & Vomiting 04/03/18 14:26 04/26/18 14:25 Pantoprazole (Protonix) 40 mg DAILY IVP 04/04/18 09:00 04/27/18 13:59 04/04/18 09:42 Piperacillin Sod/ Tazobactam Sod 4.5 gm/Sodium Chloride 110 ml @ 27.5 mls/hr EVERY 8 HOURS IVPB 04/03/18 22:00 04/08/18 13:59 04/04/18 14:08 Polyethylene Glycol (Miralax) 17 gm DAILYPRN PRN ORAL Constipation 04/03/18 14:26 04/26/18 14:25 Temazepam (Restoril) 15 mg HSPRN PRN ORAL Insomnia 04/03/18 21:00 04/04/18 20:59 Wang Guzman MD Apr 04, 2018 15:47
[2018-04-04 16:00] VITALS: BP 151/71
[2018-04-04] MEDS: Dyna-Hex 2% Top Sol 2oz TOPIC SCH (19:34)
[2018-04-04 20:00] VITALS: BP 157/62
[2018-04-05] VITALS: BP 147/62
[2018-04-05] MEDS: NovoLOG Insulin Flexpen SUBQ SCH ×4 (00:19→17:42)
[2018-04-05 04:00] VITALS: BP 144/67
[2018-04-05] MEDS: Piperacillin/Tazobactam 4.5 GM in NS 110 ML IVPB SCH ×3 (06:14→22:00)
[2018-04-05] MEDS: HydrALAZINE 25mg tab GT SCH ×3 (06:14→22:00)
[2018-04-05] MEDS: Gabapentin 300 MG/6 ML Soln GT SCH ×3 (06:15→22:00)
[2018-04-05 07:56] LABS: ANION GAP 6 mmol/L (5-15); BLOOD UREA NITROGEN 28 mg/dL (7-18); CALCIUM 9.1 MG/DL (8.5-10.1); CARBON DIOXIDE 30 MMOL/L (21-32); CHLORIDE 105 MMOL/L (98-107); CREATININE 1.5 MG/DL (0.55-1.30); POTASSIUM 3.8 MMOL/L (3.5-5.1); SODIUM 141 MMOL/L (136-145)
[2018-04-05 08:00] VITALS: BP 140/69
--- NOTE | 2018-04-05 08:38 | Infectious Diseases Prog Note ---
Assessment/Plan Assessment/Plan Probable PNA - Probable Influenza 04/02 CXR: There is some developing atelectasis in the right midlung. There is improved aeration of the left lung base. Lungs and pleural spaces are otherwise clear. 03/29 CXR: Persistent consolidation in bilateral medial lung bases concerning for atelectasis versus pneumonia. Persistent prominent increased interstitial markings. sp cxb #1: P, stuartii (R ance, amp, CTx, Cipro; otherwise S), P. mirabalis ESBL( S Zosyn) #2 PsA (bailey S), P. stuarti, P. mirabilis -CXR: Persistent right perihilar congestive change, left basilar atelectasis. -influenza sc neg -Bcx NTD Urine legionella neg Acute respiratory failure s/p intubation 03/28- likely combination of CHF and prob PNA -extubated 04/02 Fever, SP Leukocytosis, SP Sacral decub- no signs of infection -wound cx MRSA , ESBL P. mirabilis (colonizers) DM2 HTN CAD/ID HLD GERD CVA/TIA Chronic encephalopathy CHF Dementia renal disease dysphagia s/p G-tube SNF resident Plan: -Cont Zosyn #5/7 for PNA based on culture results -04/01 SP IV Vancomycin #5, Cefepime #5, Tamiflu and Azithromycin d# 5 -Monitor CBC/CMP, temperatures -aspiration precautions -ICU care Discussed with RN and micro lab staff Subjective Allergies: Coded Allergies: NO KNOWN DRUG ALLERGIES (Unverified Allergy, Unknown, 05/29/14) Subjective Patient doing well on RA Afebrile No leukocytosis Objective Vital Signs Last 24 Hour Vital Signs Date Time Temp Pulse Resp B/P (MAP) Pulse Ox O2 Delivery O2 Flow Rate FiO2 04/05/18 06:14 144/67 04/05/18 04:00 98.0 62 20 144/67 (92) 98 04/05/18 00:00 97.8 63 20 147/62 (90) 99 04/04/18 21:15 157/62 04/04/18 21:00 Nasal Cannula 2.0 Nasal Cannula 2.0 04/04/18 20:00 Nasal Cannula 2.0 28 04/04/18 20:00 99 Nasal Cannula 2.0 28 04/04/18 20:00 72 16 Nasal Cannula 2.0 28 04/04/18 20:00 97.2 58 20 157/62 (93) 100 04/04/18 16:00 96.9 63 20 151/71 (97) 100 04/04/18 14:09 134/77 04/04/18 12:00 97.3 64 20 134/77 (96) 100 04/04/18 09:43 65 144/64 04/04/18 09:00 Nasal Cannula 2.0 Nasal Cannula 2.0 Height (Feet): 5 Height (Inches): 10.00 Weight (Pounds): 174 Objective General Appearance: NAD, cachetic, Chronically Ill HEENT: normocephalic, EOMI Respiratory: chest non-tender, no respiratory distress, no retraction, no accessory muscle use, rhonchi Cardiovascular no edema, tachycardia, systolic murmur Gastrointestinal: normal bowel sounds, non tender, soft, non-distended, G- tube (No E/P) Musculoskeletal: normal range of motion, non-tender, other - atrophy diffusely Skin: warm/dry, other - See detailed RN skin exam for DU Laboratory Tests Test 04/05/18 05:30 White Blood Count Pending Red Blood Count Pending Hemoglobin Pending Hematocrit Pending Mean Corpuscular Volume Pending Mean Corpuscular Hemoglobin Pending Mean Corpuscular Hemoglobin Concent Pending Red Cell Distribution Width Pending Platelet Count Pending Mean Platelet Volume Pending Neutrophils (%) (Auto) Pending Lymphocytes (%) (Auto) Pending Monocytes (%) (Auto) Pending Eosinophils (%) (Auto) Pending Basophils (%) (Auto) Pending Sodium Level 141 MMOL/L (136-145) Potassium Level 3.8 MMOL/L (3.5-5.1) Chloride Level 105 MMOL/L (98-107) Carbon Dioxide Level 30 MMOL/L (21-32) Anion Gap 6 mmol/L (5-15) Blood Urea Nitrogen 28 mg/dL (7-18) H Creatinine 1.5 MG/DL (0.55-1.30) H Estimat Glomerular Filtration Rate mL/min (>60) Glucose Level 137 MG/DL (74-106) H Calcium Level 9.1 MG/DL (8.5-10.1) Current Medications Medications (Trade) Dose Ordered Sig/Dimas Route PRN Reason Start Time Stop Time Status Last Admin Dose Admin Acetaminophen (Tylenol) 650 mg Q4H PRN ORAL T>100.5 04/03/18 14:24 04/26/18 14:23 Amlodipine Besylate (Norvasc) 2.5 mg DAILY GT 04/04/18 09:00 04/27/18 08:59 04/04/18 09:43 Chlorhexidine Gluconate (Joanna-Hex 2%) 1 applic DAILY@2000 TOPIC 04/03/18 20:00 05/01/18 19:59 04/04/18 19:34 Dextrose (Dextrose 50%) 25 ml Q30M PRN IV Hypoglycemia 04/03/18 14:45 04/26/18 20:05 Dextrose (Dextrose 50%) 50 ml Q30M PRN IV hypoglycemia 04/03/18 14:45 04/26/18 20:14 Gabapentin (Neurontin) 300 mg Q8HR GT 04/03/18 22:00 04/26/18 21:59 04/05/18 06:15 Heparin Sodium (Porcine) (Heparin 5000 units/ml) 5,000 units EVERY 12 HOURS SUBQ 04/03/18 21:00 04/26/18 20:59 04/04/18 20:35 Hydralazine HCl (Apresoline) 25 mg EVERY 8 HOURS GT 04/03/18 22:00 04/26/18 21:59 04/05/18 06:14 Insulin Aspart (NovoLOG) Q6HR SUBQ 04/03/18 18:00 04/26/18 20:59 04/05/18 06:21 Nitroglycerin (Ntg) 0.4 mg Q5MIN X 3 DOSES PRN SL Prn Chest Pain 04/03/18 14:30 04/26/18 19:59 Ondansetron HCl (Zofran) 4 mg Q6H PRN IVP Nausea & Vomiting 04/03/18 14:26 04/26/18 14:25 Pantoprazole (Protonix) 40 mg DAILY IVP 04/04/18 09:00 04/27/18 13:59 04/04/18 09:42 Piperacillin Sod/ Tazobactam Sod 4.5 gm/Sodium Chloride 110 ml @ 27.5 mls/hr EVERY 8 HOURS IVPB 04/03/18 22:00 04/08/18 13:59 04/05/18 06:14 Polyethylene Glycol (Miralax) 17 gm DAILYPRN PRN ORAL Constipation 04/03/18 14:26 04/26/18 14:25 John Grant MD Apr 05, 2018 08:38
--- NOTE | 2018-04-05 08:49 | General Progress Note ---
Assessment/Plan Problem List: (1) ATN (acute tubular necrosis) ICD Codes: N17.0 - Acute kidney failure with tubular necrosis SNOMED: 21646489 (2) History of CVA (cerebrovascular accident) ICD Codes: Z86.73 - Personal history of transient ischemic attack (TIA), and cerebral infarction without residual deficits SNOMED: 015650457 (3) Diabetes ICD Codes: E11.9 - Type 2 diabetes mellitus without complications SNOMED: 75359139 (4) CHF (congestive heart failure) ICD Codes: I50.9 - Heart failure, unspecified SNOMED: 53940539 (5) HTN (hypertension) ICD Codes: I10 - Essential (primary) hypertension SNOMED: 15472857 (6) Acute respiratory failure ICD Codes: J96.00 - Acute respiratory failure, unspecified whether with hypoxia or hypercapnia SNOMED: 55106126 (7) PNA (pneumonia) ICD Codes: J18.9 - Pneumonia, unspecified organism SNOMED: 496855597 (8) Sepsis ICD Codes: A41.9 - Sepsis SNOMED: 59133160 Status: unchanged Assessment/Plan vent abx bp bs control cbc bmp am dc plan snf Subjective Constitutional: Reports: weakness Respiratory: Reports: shortness of breath Allergies: Coded Allergies: NO KNOWN DRUG ALLERGIES (Unverified Allergy, Unknown, 05/29/14) All Systems: reviewed and negative except above Subjective o2 nc sleepy Objective Last 24 Hour Vital Signs Date Time Temp Pulse Resp B/P (MAP) Pulse Ox O2 Delivery O2 Flow Rate FiO2 04/05/18 08:00 98.3 65 19 140/69 (92) 99 04/05/18 06:14 144/67 04/05/18 04:00 98.0 62 20 144/67 (92) 98 04/05/18 00:00 97.8 63 20 147/62 (90) 99 04/04/18 21:15 157/62 04/04/18 21:00 Nasal Cannula 2.0 Nasal Cannula 2.0 04/04/18 20:00 Nasal Cannula 2.0 28 04/04/18 20:00 99 Nasal Cannula 2.0 28 04/04/18 20:00 72 16 Nasal Cannula 2.0 28 04/04/18 20:00 97.2 58 20 157/62 (93) 100 04/04/18 16:00 96.9 63 20 151/71 (97) 100 04/04/18 14:09 134/77 04/04/18 12:00 97.3 64 20 134/77 (96) 100 04/04/18 09:43 65 144/64 04/04/18 09:00 Nasal Cannula 2.0 Nasal Cannula 2.0 Intake and Output 04/04/18 04/05/18 18:59 06:59 Intake Total 500 ml 890.0 ml Output Total 650 ml 550 ml Balance -150 ml 340.0 ml Intake Free Water 60 ml 120 ml IV Total 110.0 ml Tube Feeding 440 ml 660 ml Output Urine Total 650 ml 550 ml # Bowel Movements 3 3 Laboratory Tests 04/05/18 05:30: White Blood Count [Pending], Red Blood Count [Pending], Hemoglobin [Pending], Hematocrit [Pending], Mean Corpuscular Volume [Pending], Mean Corpuscular Hemoglobin [Pending], Mean Corpuscular Hemoglobin Concent [Pending], Red Cell Distribution Width [Pending], Platelet Count [Pending], Mean Platelet Volume [ Pending], Neutrophils (%) (Auto) [Pending], Lymphocytes (%) (Auto) [Pending], Monocytes (%) (Auto) [Pending], Eosinophils (%) (Auto) [Pending], Basophils (%) (Auto) [Pending], Sodium Level 141, Potassium Level 3.8, Chloride Level 105, Carbon Dioxide Level 30, Anion Gap 6, Blood Urea Nitrogen 28H, Creatinine 1.5H, Estimat Glomerular Filtration Rate , Glucose Level 137H, Calcium Level 9.1 Height (Feet): 5 Height (Inches): 10.00 Weight (Pounds): 174 General Appearance: lethargic EENT: normal ENT inspection Neck: normal alignment Cardiovascular: normal peripheral pulses, normal rate, regular rhythm Respiratory/Chest: chest wall non-tender, decreased breath sounds Abdomen: normal bowel sounds, non tender, soft Extremities: normal inspection Edema: no edema noted Arm (L), no edema noted Arm (R), no edema noted Leg (L), no edema noted Leg (R), no edema noted Pedal (L), no edema noted Pedal (R), no edema noted Generalized Neurologic: motor weakness Skin: normal pigmentation, warm/dry Remberto Joe DO Apr 05, 2018 08:49
[2018-04-05 08:55] LABS: BASOPHILS % (AUTO) 1.2 % (0.0-2.0); EOSINOPHILS % (AUTO) 4.1 % (0.0-3.0); HEMATOCRIT 29.8 % (42.0-52.0); HEMOGLOBIN 9.6 G/DL (14.2-18.0); LYMPHOCYTES % (AUTO) 22.2 % (20.0-45.0); MEAN CORPUSCULAR VOLUME 86 FL (80-99); MONOCYTES % (AUTO) 7.5 % (1.0-10.0); PLATELET COUNT 449 K/UL (150-450); RED BLOOD COUNT 3.46 M/UL (4.70-6.10); RED CELL DISTRIBUTION WIDTH 12.8 % (11.6-14.8); WHITE BLOOD COUNT 8.2 K/UL (4.8-10.8)
[2018-04-05] MEDS: Pantoprazole Inj IVP SCH (09:00)
[2018-04-05] MEDS: Heparin 5000 units/ml inj SUBQ SCH ×2 (09:01→20:27)
[2018-04-05 12:00] VITALS: BP 124/73
--- NOTE | 2018-04-05 12:16 | Nephrology Progress Note ---
Assessment/Plan Problem List: (1) ATN (acute tubular necrosis) (2) Acute respiratory failure (3) Hypernatremia Assessment Acute Renal Failure- PreRenal Azotemia / Dehydration Sepsis / Low BP Pneumonia Elevated Troponin Anemia Proteinuria / HypoAlbuminemia Plan K supplement as needed Adjust BP meds urine studies monitor renal parameters Per orders Dc planning ?? Subjective ROS Limited/Unobtainable: No Objective Objective Last 24 Hour Vital Signs Date Time Temp Pulse Resp B/P (MAP) Pulse Ox O2 Delivery O2 Flow Rate FiO2 04/05/18 09:55 97 Nasal Cannula 2.0 28 04/05/18 09:54 Nasal Cannula 2.0 28 04/05/18 09:00 Nasal Cannula 2.0 Nasal Cannula 2.0 04/05/18 09:00 65 140/69 04/05/18 08:00 98.3 65 19 140/69 (92) 99 04/05/18 06:14 144/67 04/05/18 04:00 98.0 62 20 144/67 (92) 98 04/05/18 00:00 97.8 63 20 147/62 (90) 99 04/04/18 21:15 157/62 04/04/18 21:00 Nasal Cannula 2.0 Nasal Cannula 2.0 04/04/18 20:00 Nasal Cannula 2.0 28 04/04/18 20:00 99 Nasal Cannula 2.0 28 04/04/18 20:00 72 16 Nasal Cannula 2.0 28 04/04/18 20:00 97.2 58 20 157/62 (93) 100 04/04/18 16:00 96.9 63 20 151/71 (97) 100 04/04/18 14:09 134/77 Intake and Output 04/04/18 04/05/18 18:59 06:59 Intake Total 500 ml 890.0 ml Output Total 650 ml 550 ml Balance -150 ml 340.0 ml Intake Free Water 60 ml 120 ml IV Total 110.0 ml Tube Feeding 440 ml 660 ml Output Urine Total 650 ml 550 ml # Bowel Movements 3 3 Laboratory Tests 04/05/18 05:30: White Blood Count 8.2, Red Blood Count 3.46L, Hemoglobin 9.6L, Hematocrit 29.8L , Mean Corpuscular Volume 86, Mean Corpuscular Hemoglobin 27.8, Mean Corpuscular Hemoglobin Concent 32.4, Red Cell Distribution Width 12.8, Platelet Count 449, Mean Platelet Volume 6.8, Neutrophils (%) (Auto) 65.0, Lymphocytes (% ) (Auto) 22.2, Monocytes (%) (Auto) 7.5, Eosinophils (%) (Auto) 4.1H, Basophils (%) (Auto) 1.2, Sodium Level 141, Potassium Level 3.8, Chloride Level 105, Carbon Dioxide Level 30, Anion Gap 6, Blood Urea Nitrogen 28H, Creatinine 1.5H, Estimat Glomerular Filtration Rate , Glucose Level 137H, Calcium Level 9.1 Height (Feet): 5 Height (Inches): 10.00 Weight (Pounds): 174 General Appearance: no apparent distress Objective no change Hansel Kirkpatrick MD Apr 05, 2018 12:16
[2018-04-05 16:00] VITALS: BP 149/74
[2018-04-05 20:00] VITALS: BP 144/72
[2018-04-05] MEDS: Dyna-Hex 2% Top Sol 2oz TOPIC SCH (20:26)
[2018-04-06] VITALS: BP 150/67
[2018-04-06] MEDS: NovoLOG Insulin Flexpen SUBQ SCH ×4 (00:27→17:36)
[2018-04-06 04:00] VITALS: BP 148/72
[2018-04-06] MEDS: Piperacillin/Tazobactam 4.5 GM in NS 110 ML IVPB SCH (06:17)
[2018-04-06] MEDS: Gabapentin 300 MG/6 ML Soln GT SCH ×2 (06:17→14:16)
[2018-04-06] MEDS: HydrALAZINE 25mg tab GT SCH ×2 (06:17→14:16)
[2018-04-06 07:28] LABS: BASOPHILS % (AUTO) 0.7 % (0.0-2.0); EOSINOPHILS % (AUTO) 4.4 % (0.0-3.0); HEMATOCRIT 30.5 % (42.0-52.0); LYMPHOCYTES % (AUTO) 19.9 % (20.0-45.0); MEAN CORPUSCULAR VOLUME 85 FL (80-99); MONOCYTES % (AUTO) 5.8 % (1.0-10.0); NEUTROPHILS % (AUTO) 69.1 % (45.0-75.0); PLATELET COUNT 456 K/UL (150-450); RED BLOOD COUNT 3.57 M/UL (4.70-6.10); RED CELL DISTRIBUTION WIDTH 13.3 % (11.6-14.8); WHITE BLOOD COUNT 9.2 K/UL (4.8-10.8)
[2018-04-06 07:51] LABS: ANION GAP 5 mmol/L (5-15); BLOOD UREA NITROGEN 24 mg/dL (7-18); CALCIUM 9.1 MG/DL (8.5-10.1); CARBON DIOXIDE 32 MMOL/L (21-32); CHLORIDE 104 MMOL/L (98-107); CREATININE 1.6 MG/DL (0.55-1.30); POTASSIUM 4.2 MMOL/L (3.5-5.1); SODIUM 141 MMOL/L (136-145)
[2018-04-06 08:00] VITALS: BP 133/71
[2018-04-06] MEDS: Pantoprazole Inj IVP SCH (08:31)
[2018-04-06] MEDS: Heparin 5000 units/ml inj SUBQ SCH (08:33)
--- NOTE | 2018-04-06 08:43 | General Progress Note ---
Assessment/Plan Problem List: (1) ATN (acute tubular necrosis) ICD Codes: N17.0 - Acute kidney failure with tubular necrosis SNOMED: 18673852 (2) History of CVA (cerebrovascular accident) ICD Codes: Z86.73 - Personal history of transient ischemic attack (TIA), and cerebral infarction without residual deficits SNOMED: 931487793 (3) Diabetes ICD Codes: E11.9 - Type 2 diabetes mellitus without complications SNOMED: 12201346 (4) CHF (congestive heart failure) ICD Codes: I50.9 - Heart failure, unspecified SNOMED: 04608385 (5) HTN (hypertension) ICD Codes: I10 - Essential (primary) hypertension SNOMED: 89794618 (6) Acute respiratory failure ICD Codes: J96.00 - Acute respiratory failure, unspecified whether with hypoxia or hypercapnia SNOMED: 39527186 (7) PNA (pneumonia) ICD Codes: J18.9 - Pneumonia, unspecified organism SNOMED: 662011424 (8) Sepsis ICD Codes: A41.9 - Sepsis SNOMED: 19019162 Status: stable, progressing Assessment/Plan vent abx bp bs control cbc bmp am dc if clear Subjective Constitutional: Reports: weakness Respiratory: Reports: shortness of breath Allergies: Coded Allergies: NO KNOWN DRUG ALLERGIES (Unverified Allergy, Unknown, 05/29/14) All Systems: reviewed and negative except above Subjective o2 nc sleepy Objective Last 24 Hour Vital Signs Date Time Temp Pulse Resp B/P (MAP) Pulse Ox O2 Delivery O2 Flow Rate FiO2 04/06/18 08:31 63 133/71 04/06/18 06:17 148/72 04/06/18 04:00 96.7 57 16 148/72 (97) 100 04/06/18 00:00 96.8 67 18 150/67 (94) 94 04/05/18 22:00 144/72 04/05/18 21:56 97 Nasal Cannula 2.0 28 04/05/18 21:56 Nasal Cannula 2.0 28 04/05/18 21:00 Nasal Cannula 2.0 Nasal Cannula 2.0 04/05/18 20:00 96.6 68 16 144/72 (96) 97 04/05/18 16:00 96.6 66 20 149/74 (99) 98 04/05/18 14:32 169/75 04/05/18 12:00 97.0 68 20 124/73 (90) 100 04/05/18 09:55 97 Nasal Cannula 2.0 28 04/05/18 09:54 Nasal Cannula 2.0 28 04/05/18 09:00 Nasal Cannula 2.0 Nasal Cannula 2.0 04/05/18 09:00 65 140/69 Intake and Output 04/05/18 04/06/18 19:00 07:00 Intake Total 697.5 ml 110.0 ml Output Total 950 ml 600 ml Balance -252.5 ml -490.0 ml Intake Free Water 120 ml IV Total 82.5 ml 110.0 ml Tube Feeding 495 ml Output Urine Total 950 ml 600 ml # Bowel Movements 2 2 Laboratory Tests 04/06/18 06:30: White Blood Count 9.2, Red Blood Count 3.57L, Hemoglobin 10.0L, Hematocrit 30.5L , Mean Corpuscular Volume 85, Mean Corpuscular Hemoglobin 28.1, Mean Corpuscular Hemoglobin Concent 32.9, Red Cell Distribution Width 13.3, Platelet Count 456H, Mean Platelet Volume 6.6, Neutrophils (%) (Auto) 69.1, Lymphocytes ( %) (Auto) 19.9L, Monocytes (%) (Auto) 5.8, Eosinophils (%) (Auto) 4.4H, Basophils (%) (Auto) 0.7, Sodium Level 141, Potassium Level 4.2, Chloride Level 104, Carbon Dioxide Level 32, Anion Gap 5, Blood Urea Nitrogen 24H, Creatinine 1.6H, Estimat Glomerular Filtration Rate , Glucose Level 144H, Calcium Level 9.1 Height (Feet): 5 Height (Inches): 10.00 Weight (Pounds): 172 General Appearance: lethargic EENT: normal ENT inspection Neck: normal alignment Cardiovascular: normal peripheral pulses, normal rate, regular rhythm Respiratory/Chest: chest wall non-tender, decreased breath sounds Abdomen: normal bowel sounds, non tender, soft Extremities: normal inspection Edema: no edema noted Arm (L), no edema noted Arm (R), no edema noted Leg (L), no edema noted Leg (R), no edema noted Pedal (L), no edema noted Pedal (R), no edema noted Generalized Neurologic: motor weakness Skin: normal pigmentation, warm/dry Remberto Joe DO Apr 06, 2018 08:43
[2018-04-06 12:00] VITALS: BP 130/68
--- NOTE | 2018-04-06 14:05 | Nephrology Progress Note ---
Assessment/Plan Problem List: (1) ATN (acute tubular necrosis) (2) Acute respiratory failure (3) Hypernatremia Assessment Acute Renal Failure- PreRenal Azotemia / Dehydration Sepsis / Low BP Pneumonia Elevated Troponin Anemia Proteinuria / HypoAlbuminemia Plan K supplement as needed Adjust BP meds urine studies monitor renal parameters Per orders Dc planning ?? Subjective ROS Limited/Unobtainable: No Constitutional: Reports: malaise Objective Objective Last 24 Hour Vital Signs Date Time Temp Pulse Resp B/P (MAP) Pulse Ox O2 Delivery O2 Flow Rate FiO2 04/06/18 12:00 98.0 66 18 130/68 (88) 99 04/06/18 08:53 Nasal Cannula 2.0 Nasal Cannula 2.0 04/06/18 08:31 63 133/71 04/06/18 08:23 Nasal Cannula 2.0 28 04/06/18 08:22 98 Nasal Cannula 2.0 28 04/06/18 08:00 98.0 63 18 133/71 (91) 98 04/06/18 06:17 148/72 04/06/18 04:00 96.7 57 16 148/72 (97) 100 04/06/18 00:00 96.8 67 18 150/67 (94) 94 04/05/18 22:00 144/72 04/05/18 21:56 97 Nasal Cannula 2.0 28 04/05/18 21:56 Nasal Cannula 2.0 28 04/05/18 21:00 Nasal Cannula 2.0 Nasal Cannula 2.0 04/05/18 20:00 96.6 68 16 144/72 (96) 97 04/05/18 16:00 96.6 66 20 149/74 (99) 98 04/05/18 14:32 169/75 Intake and Output 04/05/18 04/06/18 18:59 06:59 Intake Total 697.5 ml 110.0 ml Output Total 950 ml 600 ml Balance -252.5 ml -490.0 ml Intake Free Water 120 ml IV Total 82.5 ml 110.0 ml Tube Feeding 495 ml Output Urine Total 950 ml 600 ml # Bowel Movements 2 2 Laboratory Tests 04/06/18 06:30: White Blood Count 9.2, Red Blood Count 3.57L, Hemoglobin 10.0L, Hematocrit 30.5L , Mean Corpuscular Volume 85, Mean Corpuscular Hemoglobin 28.1, Mean Corpuscular Hemoglobin Concent 32.9, Red Cell Distribution Width 13.3, Platelet Count 456H, Mean Platelet Volume 6.6, Neutrophils (%) (Auto) 69.1, Lymphocytes ( %) (Auto) 19.9L, Monocytes (%) (Auto) 5.8, Eosinophils (%) (Auto) 4.4H, Basophils (%) (Auto) 0.7, Sodium Level 141, Potassium Level 4.2, Chloride Level 104, Carbon Dioxide Level 32, Anion Gap 5, Blood Urea Nitrogen 24H, Creatinine 1.6H, Estimat Glomerular Filtration Rate , Glucose Level 144H, Calcium Level 9.1 Height (Feet): 5 Height (Inches): 10.00 Weight (Pounds): 172 General Appearance: no apparent distress Objective no change Hansel Kirkpatrick MD Apr 06, 2018 14:05
[2018-04-06] MEDS ORDERED: ACETAMINOPHEN325 M1 ORAL (14:54)
[2018-04-06] MEDS ORDERED: NORVASC2.5 MG GT (14:56)
[2018-04-06] MEDS ORDERED: ACETAMINOPHEN325 M1 GT (14:58)
[2018-04-06] MEDS ORDERED: GABAPENTIN300 MG/61 GT (14:59)
[2018-04-06] MEDS ORDERED: HYDRALAZINE HCL25 M1 GT (15:00)
[2018-04-06] MEDS ORDERED: NOVOLOG100 UNITS1 (15:01)
[2018-04-06] MEDS ORDERED: LEVOFLOXAC500 MG/100 GT (15:03)
[2018-04-06] MEDS ORDERED: LEVOFLOXACIN500 MG GT (15:04)
[2018-04-06] MEDS ORDERED: NITROGLYCERIN2.5 MG SL (15:10)
[2018-04-06] MEDS ORDERED: MIRALAX17 G2 ORAL (15:12)
[2018-04-06 16:00] VITALS: BP 130/68
--- NOTE | 2018-04-08 11:05 | Discharge Summary ---
Discharge Summary Discharge Summary _ Right DATE OF ADMISSION: 03/27/2018 DATE OF DISCHARGE: 04/06/2018 DISCHARGED BY: Dr. Joe REASON FOR ADMISSION: 82 years old male with past medical history of diabetes mellitus, hypertension, coronary artery disease, s/p [place], CHF, CVA, GERD, encephalopathy, dementia, dysphagia, G-tube, renal insufficiency, resident of the nursing facility, was sent for evaluation due to cough with thick sputum production and fever. Patient was unable to provide any history due to baseline confusion and dementia. Upon evaluation patient was febrile with temperature 101.4, mild tachycardia noted. Patient was initially on supplemental oxygen via nasal cannula. Laboratory workup revealed leukocytosis WBC 14.6; renal failure with BUN 80, creat 2.6, Na-151. lactic acid 1.1 . Elevated troponin 0.092. ECG revealed sinus tachycardia, no acute ischemic changes,. CXR with possible infiltrates versus congestion. ABG revealed CO2 retention 62 on O2 via nasal cannula. Patient was placed on BiPAP. Patient was placed on the BiPAP, and repeated ABG still showed significant hypercapnia without improvement. Patient was subsequently orally intubated due to acute hypercapnic respiratory failure. Patient received aggressive IV hydration , pancultured ,started on broad- spectrum antibiotic and admitted to ICU for further management with diagnoses of sepsis, pneumonia, acute respiratory failure requiring intubation, acute renal failure, hypernatremia, elevated troponin. CONSULTANTS: pulmonary Dr. Guzman ID specialist Dr. Brandt service architect Dr. Kirkpatrick [facility] COURSE: Patient was admitted to ICU. Ventilator support and pulmonary toilet provided. Patient was followed-up with daily cehst x-ray and ABGs, and ventilator settings titrated as needed. Patient was started on empiric antibiotic and intravenous fluid hydration. Infectious disease specialist ,service architect and aircraft charter dispatcher closely followed. Blood cultures were negative. Urine cultures were negative. Influenza screen test was negative. Sputum culture initially revealed growth of Providencia and Proteus ESBL, and repeated sputum culture revealed growth of Pseudomonas aeruginosa, Providencia and Proteus. Patient was on antibiotic regimen optimized as per ID recommendations. Infectious disease specialist suggested that patient likely had influenza as well, despite negative influenza screen test . Patient was treated with empiric Tamiflu/Oseltamivir. Sacral decubitus ulcer, present on admission , did not show any evidence of infection. Wound care provided as per wound care protocol. Respiratory status was improving with treatment, and patient was able to be extubated on 04/02/2018. Supplemental oxygen provided as needed to keep pulse oximetry above 92%. Pulmonary toilet provided as needed. Aspiration /reflux precautions were maintained. G-tube feeding continued. Patient was able to tolerate G-tube feeding. Pulse oximetry was stable on 2L of oxygen via nasal cannula prior to discharge. Leukocytosis and fever resolved. Patient will need to complete antibiotics at the facility as per ID recommendations ; antibiotic changed to route via G-tube. Manager Fiber closely followed. Renal parameters were closely monitored, electrolytes corrected as needed, and nephrotoxins were avoided. Prior to discharge BUN from 80 down to 24 and creatinine from 2.6 down to 1.6. Acute renal failure was likely due to sepsis and dehydration. Hypernatremia was likely due to dehydration . Upon discharge sodium 141. Initially elevated troponin was followed by serial troponin, which were negative. Initial single episode of a minimally elevated troponin was likely due to renal failure. Echocardiogram revealed preserved ejection fraction 55-60% with mild left ventricular hypertrophy. No evidence of wall motion abnormality. Patient was followed-up with chest x-ray and pro BNP; no clinical evidence of decompensated congestive heart failure. Venous duplex bilateral lower extremity revealed no evidence of acute DVT. Blood sugar was managed with sliding scale of insulin. Hemoglobin A1c 6.5 at goal. Blood pressure was managed with calcium channel suzi and hydralazine , and remained stable. DVT and GI prophylaxis provided. Pain management was addressed as needed. Bowel regimen instituted. Supportive care provided. Patient clinically improved and was stable for discharge to [facility] facility for continuation of care. FINAL DIAGNOSES: Acute hypercapnic respiratory failure , requiring intubation Sepsis Pneumonia Probable influenza Acute renal failure/acute tubular necrosis Hypernatremia Elevated troponin Diabetes mellitus Hypertension Anemia of chronic disease Dementia Dysphagia ,feeding by G-tube History of CVA Sacral decubitus ulcer, present on admission DISCHARGE MEDICATIONS: See Medication Reconciliation list. DISCHARGE INSTRUCTIONS: Patient was discharged to the [facility] facility. Follow up with medical doctor at the facility. I have been assigned to dictate discharge summary for this account. I was not involved in the patient's management. Geovanna Brownlee NP Apr 08, 2018 11:05
== END 2018-04-06 19:53 | DRG 720 ==
LOC: EDBD 16:58 → EMR 17:31 → EDBEDREQSVC 17:56 → EDBEDREQ 18:53 → ICU 19:03 → 4E 04-03 15:40
PROC: 0BH17EZ Insertion of Endotracheal Airway into Trachea, Via Natural or Artificial Opening (ICD-10-PCS; principal; 2018-03-27)
PROC: 5A1955Z Respiratory Ventilation, Greater than 96 Consecutive Hours (ICD-10-PCS; principal; 2018-03-27)
PROC: B548ZZA Ultrasonography of Superior Vena Cava, Guidance (ICD-10-PCS; 2018-04-01)
PROC: 02HV33Z Insertion of Infusion Device into Superior Vena Cava, Percutaneous Approach (ICD-10-PCS; 2018-04-01)
DX: A41.9 Sepsis, unspecified organism (principal); J96.02 Acute respiratory failure with hypercapnia; N17.0 Acute kidney failure with tubular necrosis; J11.00 Influenza due to unidentified influenza virus with unspecified type of pneumonia; G93.40 Encephalopathy, unspecified; L89.159 Pressure ulcer of sacral region, unspecified stage; I11.0 Hypertensive heart disease with heart failure; E87.0 Hyperosmolality and hypernatremia; I50.9 Heart failure, unspecified; E88.09 Other disorders of plasma-protein metabolism, not elsewhere classified; E11.9 Type 2 diabetes mellitus without complications; Z86.73 Personal history of transient ischemic attack (TIA), and cerebral infarction without residual deficits; E86.0 Dehydration; I25.10 Atherosclerotic heart disease of native coronary artery without angina pectoris; I25.2 Old myocardial infarction; R13.10 Dysphagia, unspecified; Z93.1 Gastrostomy status; F03.90 Unspecified dementia, unspecified severity, without behavioral disturbance, psychotic disturbance, mood disturbance, and anxiety; J98.11 Atelectasis
CPT/HCPCS: 31500; 36415; 36569; 36600; 71045; 76937; 80048; 80053; 80061; 80202; 81003; 82164; 82550; 82553; 82607; 82728; 82746; 82803; 82962; 82977; 83036; 83540; 83550; 83605; 83735; 83880; 84100; 84300; 84443; 84484; 84550; 85025; 86140; 86710; 87040; 87070; 87081; 87086; 87181; 87205; 93005; 93306; 93970; 94002; 94003; 94640; 94660; 94664; 94760; 96361; 96365; 96367; 99291; J1815; J8499

== ENCOUNTER 2018-06-07 12:23 | Inpatient (IN) | payer MEDICAID ==
[~2018-06-07] VITALS: Ht 170.2 cm; Wt 77.1 kg
[~2018-06-07 12:23] MED LIST changes: +ACETAMINOP160 MG/5 M GT; +ACETAMINOPHEN325 M1 GT; +ACETAMINOPHEN325 M1 ORAL; +CALCIUM CARBON500 M1 GT; +GABAPENTIN300 MG/61 GT; +HYDRALAZINE HCL25 M1 GT; +LEVOFLOXAC500 MG/100 GT; +LEVOFLOXACIN500 MG GT; +MIRALAX17 G2 ORAL; +NITROGLYCERIN2.5 MG SL; +NORVASC2.5 MG GT; +NOVOLOG100 UNITS1
[2018-06-07] MEDS ORDERED: FLEET ENEMA133 ML RECTAL (12:32)
[2018-06-07] MEDS ORDERED: CLONIDINE0.1 MG GT (12:32)
[2018-06-07] MEDS ORDERED: DUONEB 0.5-3(2.53 ML HHN (12:32)
[2018-06-07] MEDS ORDERED: NEURONTIN300 MG ORAL (12:36)
[2018-06-07] MEDS ORDERED: NYSTATIN500000 UNI ORAL (12:36)
[2018-06-07 13:11] LABS: APPEARANCE,URINE CLEAR; BILIRUBIN, URINE NEGATIVE (NEGATIVE); GLUCOSE, URINE (UA) 4+ (NEGATIVE); KETONES,URINE NEGATIVE (NEGATIVE); LEUKOCYTE ESTERASE ,URINE NEGATIVE (NEGATIVE); NITRITE,URINE NEGATIVE (NEGATIVE); PH,URINE 5 (4.5-8.0); PROTEIN,URINE 3+ (NEGATIVE); UROBILINOGEN,URINE NORMAL MG/DL (0.0-1.0)
[2018-06-07 13:22] LABS: ANION GAP 6 mmol/L (5-15); BLOOD UREA NITROGEN 63 mg/dL (7-18); CALCIUM 11.5 MG/DL (8.5-10.1); CARBON DIOXIDE 31 MMOL/L (21-32); CHLORIDE 104 MMOL/L (98-107); COLOR,URINE YELLOW; CREATININE 1.7 MG/DL (0.55-1.30); POTASSIUM 4.8 MMOL/L (3.5-5.1); SODIUM 141 MMOL/L (136-145)
--- NOTE | 2018-06-07 13:32 | NUR ---
ED Nurse Note: [facility]18. Pt came into the Er w/ rectal temp of 100.9F. Notified ERMD. Nonverbal. Pt has gtube in mid abdomen and sacrum presure ulcer of stage II. Skin warm to touch.
[2018-06-07 13:34] VITALS: BP 144/73
[2018-06-07 13:36] LABS: ALANINE AMINOTRANSFERASE 16 U/L (12-78); ALBUMIN 2.6 G/DL (3.4-5.0); ALBUMIN/GLOBULIN RATIO 0.5 (1.0-2.7); ALKALINE PHOSPHATASE 101 U/L (46-116); ASPARTATE AMINO TRANSFERASE 15 U/L (15-37); BILIRUBIN,TOTAL 0.5 MG/DL (0.2-1.0)
[2018-06-07 13:41] LABS: BASOPHILS % (AUTO) 0.6 % (0.0-2.0); EOSINOPHILS % (AUTO) 0.2 % (0.0-3.0); HEMATOCRIT 39.4 % (42.0-52.0); HEMOGLOBIN 12.6 G/DL (14.2-18.0); LYMPHOCYTES % (AUTO) 15.9 % (20.0-45.0); MEAN CORPUSCULAR VOLUME 90 FL (80-99); MONOCYTES % (AUTO) 9.9 % (1.0-10.0); NEUTROPHILS % (AUTO) 73.4 % (45.0-75.0); PLATELET COUNT 190 K/UL (150-450); RED BLOOD COUNT 4.37 M/UL (4.70-6.10); RED CELL DISTRIBUTION WIDTH 13.9 % (11.6-14.8); WHITE BLOOD COUNT 9.8 K/UL (4.8-10.8)
[2018-06-07] MEDS ORDERED: Acetaminophen 650mg/20.3ml GT ONE (14:15)
--- NOTE | 2018-06-07 14:36 | Emergency Room Report ---
History of Present Illness General Chief Complaint: Fever Source: EMS Present Illness HPI 83-year-old male presents ED for evaluation. [facility]. Has a fever last night of 101. Given Tylenol via G-tube prior to arrival. Patient is nonverbal at baseline. No signs of distress. No reported cough or shortness of breath. No nausea or vomiting. No other aggravating relieving factors. No other associated symptoms Allergies: Coded Allergies: NO KNOWN DRUG ALLERGIES (Unverified Allergy, Unknown, 05/29/14) Patient History Past Medical History: DM, HTN, asthma, CVA/TIA, dementia Past Surgical History: none Pertinent Family History: none Social History: Denies: smoking, alcohol use, drug use Immunizations: UTD Reviewed Nursing Documentation: PMH: Agreed; PSxH: Agreed Nursing Documentation-PMH Past Medical History: No History, Except For Hx Hypertension: Yes Hx Asthma: Yes - bronchitis Hx Diabetes: Yes Hx Cancer: No Hx Dialysis: No Hx Neurological Problems: Yes - CVA, dysphagia, encephalophaty Hx Cerebrovascular Accident: No Hx Dementia: Yes Hx Seizures: No Hx Head Trauma: Yes Hx Aphasia: Yes Hx Weakness: Yes Hx Neurologic Surgery: No Hx Brain Shunt: No Review of Systems All Other Systems: limited Physical Exam Vital Signs Date Time Temp Pulse Resp B/P (MAP) Pulse Ox O2 Delivery O2 Flow Rate FiO2 06/07/18 12:16 99.7 96 24 141/81 95 Nasal Cannula 2.0 06/07/18 13:34 97 Sp02 EP Interpretation: reviewed, normal General Appearance: other - nonverbal Head: normocephalic, atraumatic Eyes: bilateral eye normal inspection, bilateral eye PERRL ENT: hearing grossly normal, normal pharynx, no angioedema, normal voice Neck: full range of motion, supple/symm/no masses Respiratory: chest non-tender, lungs clear, normal breath sounds, speaking full sentences Cardiovascular #1: regular rate, rhythm, no edema Cardiovascular #2: 2+ carotid (R), 2+ carotid (L), 2+ radial (R), 2+ radial (L) , 2+ dorsalis pedis (R), 2+ dorsalis pedis (L) Gastrointestinal: normal bowel sounds, non tender, soft, non-distended, no guarding, no rebound Rectal: deferred Genitourinary: normal inspection, no CVA tenderness Musculoskeletal: back normal, gait/station normal, normal range of motion, non- tender Neurologic: other - nonverbal Psychiatric: other - nonverbal Reflexes: 3+ bicep (R), 3+ bicep (L), 3+ tricep (R), 3+ tricep (L), 3+ knee (R) , 3+ knee (L) Skin: normal color, no rash, warm/dry, well hydrated Lymphatic: no adenopathy Medical Decision Making Diagnostic Impression: Primary Impression: Fever Qualified Codes: R50.9 - Fever, unspecified Additional Impressions: Renal insufficiency PNA (pneumonia) Qualified Codes: J18.9 - Pneumonia, unspecified organism ER Course Hospital Course 83 yo M presents with fever Differential diagnoses include: Pneumonia, UTI, sepsis Clinical course Patient placed on stretcher. On cardiac rehabilitation specialist. After initial history and physical, I ordered labs, IV fluids, EKG, chest x-ray, blood cultures, UA. Labs - no leukocytosis, hemoglobin/hematocrit stable, Cr 1.7, lactate okay CXR - bibasilar opacities EKG - NSR, no acute ischemic changes interpreted by me given IVFS. given abx. given tylenol Case discussed with Dr. Monson and he agreed to the patient to his service for further care and support I feel this is a highly complex case requiring extensive working including EKG/ Rhythm strip, Xray/CT/US, Blood/urine lab work, repeat exams while in ED, and administration of strong opiates/narcotics for pain control, admission to hospital or close patient follow up. Diagnosis - pneumonia, fever, renal insufficiency Patient admitted to floor in serious condition Labs Test 06/07/18 12:45 06/07/18 13:30 Urine Color Yellow Urine Appearance Clear Urine pH 5 (4.5-8.0) Urine Specific [place] 1.010 (1.005-1.035) Urine Protein 3+ (NEGATIVE) Urine Glucose (UA) 4+ (NEGATIVE) Urine Ketones Negative (NEGATIVE) Urine Blood 1+ (NEGATIVE) Urine Nitrite Negative (NEGATIVE) Urine Bilirubin Negative (NEGATIVE) Urine Urobilinogen Normal MG/DL (0.0-1.0) Urine Leukocyte Esterase Negative (NEGATIVE) Urine RBC 2-4 /HPF (0 - 0) Urine WBC 0-2 /HPF (0 - 0) Urine Squamous Epithelial Cells Occasional /LPF Urine Bacteria Few /HPF (NONE) Sodium Level 141 MMOL/L (136-145) Potassium Level 4.8 MMOL/L (3.5-5.1) Chloride Level 104 MMOL/L (98-107) Carbon Dioxide Level 31 MMOL/L (21-32) Anion Gap 6 mmol/L (5-15) Blood Urea Nitrogen 63 mg/dL (7-18) Creatinine 1.7 MG/DL (0.55-1.30) Estimat Glomerular Filtration Rate mL/min (>60) Glucose Level 435 MG/DL (74-106) Lactic Acid Level 1.70 mmol/L (0.4-2.0) Calcium Level 11.5 MG/DL (8.5-10.1) Total Bilirubin 0.5 MG/DL (0.2-1.0) Aspartate Amino Transf (AST/SGOT) 15 U/L (15-37) Alanine Aminotransferase (ALT/SGPT) 16 U/L (12-78) Alkaline Phosphatase 101 U/L (46-116) Pro-B-Type Natriuretic Peptide 1081 pg/mL (0-125) Total Protein 7.8 G/DL (6.4-8.2) Albumin 2.6 G/DL (3.4-5.0) Globulin 5.2 g/dL Albumin/Globulin Ratio 0.5 (1.0-2.7) White Blood Count 9.8 K/UL (4.8-10.8) Red Blood Count 4.37 M/UL (4.70-6.10) Hemoglobin 12.6 G/DL (14.2-18.0) Hematocrit 39.4 % (42.0-52.0) Mean Corpuscular Volume 90 FL (80-99) Mean Corpuscular Hemoglobin 28.9 PG (27.0-31.0) Mean Corpuscular Hemoglobin Concent 32.1 G/DL (32.0-36.0) Red Cell Distribution Width 13.9 % (11.6-14.8) Platelet Count 190 K/UL (150-450) Mean Platelet Volume 8.5 FL (6.5-10.1) Neutrophils (%) (Auto) 73.4 % (45.0-75.0) Lymphocytes (%) (Auto) 15.9 % (20.0-45.0) Monocytes (%) (Auto) 9.9 % (1.0-10.0) Eosinophils (%) (Auto) 0.2 % (0.0-3.0) Basophils (%) (Auto) 0.6 % (0.0-2.0) EKG Diagnostic Results Rate: normal Rhythm: NSR ST Segments: no acute changes ASA given to the pt in ED: No Rhythm Strip Diag. Results EP Interpretation: yes Rhythm: NSR, no PVC's, no ectopy Chest X-Ray Diagnostic Results Chest X-Ray Diagnostic Results : Chest X-Ray Ordered: Yes # of Views/Limited/Complete: 1 View Indication: Other EP Interpretation: Yes Interpretation: no pneumothorax, other - atelectasis Impression: Other - atelectasis/pna Electronically Signed by: Electronically signed by Harsh Piña MD Last Vital Signs Date Time Temp Pulse Resp B/P (MAP) Pulse Ox O2 Delivery O2 Flow Rate FiO2 06/07/18 13:34 88 22 Nasal Cannula 2.0 97 06/07/18 13:34 100.9 144/73 98 Status: improved Disposition: ADMITTED INPATIENT Condition: Serious Referrals: Remberto Joe DO (PCP) Harsh Piña MD Jun 07, 2018 14:36
[2018-06-07 14:52] VITALS: BP 156/54
--- NOTE | 2018-06-07 15:21 | NUR ---
ED Nurse Note: Gave telephone report to TERESSA Escobar. Bed and admission packet still pending.
--- NOTE | 2018-06-07 15:39 | NUR ---
ED Nurse Note: Called ms unit for pt transfer. per ms unit, bed unavailable at this time.
--- NOTE | 2018-06-07 16:17 | NUR ---
ED Nurse Note: Pt transferred up to med surg unit. No acute distress noted. Pt had no belongings.
--- NOTE | 2018-06-07 16:36 | Consultation ---
Consult Note Consult Note asked to see for Azotemia 83-year-old male presents ED for evaluation. Brought in by EMS from senior care facility. Has a fever last night of 101. Given Tylenol via G-tube prior to arrival. Patient is nonverbal at baseline. No signs of distress. No reported cough or shortness of breath. No nausea or vomiting. No other aggravating relieving factors. No other associated symptoms NO KNOWN DRUG ALLERGIES (Unverified Allergy, Unknown, 05/29/14) Past Medical History: DM, HTN, asthma, CVA/TIA, dementia Past Medical History: No History, Except For Hx Hypertension: Yes Hx Asthma: Yes - bronchitis Hx Diabetes: Yes Hx Neurological Problems: Yes - CVA, dysphagia, encephalophaty Hx Dementia: Yes Hx Head Trauma: Yes Hx Aphasia: Yes Hx Weakness: Yes Assessment/Plan CKD with baseline Cr 1.6 Pre Renal Azotemia superimposed on CKD DM OOC Diabetic Nephropathy Proteinuria and HypoAlbuminemia High Ca likely dehydration Hydrate Antibiotics Per ID Monitor renal parameters Urine studies Hansel Kirkpatrick MD Jun 07, 2018 16:36
--- NOTE | 2018-06-07 16:57 | Pulmonology Progress Note ---
Assessment/Plan Assessment/Plan Pulmonary Consultation Note HPI Patient is an 83-year-old male [facility] resident with PMH of Diabetes, Hypertension, Congestive Heart Failure, Previous Cerebro Vascular Accident, Dementia, Asthma, who presents after having a fever of 101. Patient is nonverbal at baseline. No signs of distress. No reported cough or shortness of breath. No nausea or vomiting. No other aggravating relieving factors. No other associated symptoms. Noted to have evidence of UTI and Pneumonia. Allergies: NO KNOWN DRUG ALLERGIES Past Medical History: DM, HTN, CHF, asthma, CVA/TIA, dementia, dysphagia Past Surgical History: none s All Other Systems: limited Physical Exam Vital Signs Noted Date Time Temp Pulse Resp B/P (MAP) Pulse Ox O2 Delivery O2 Flow Rate FiO2 06/07/18 12:16 99.7 96 24 141/81 95 Nasal Cannula 2.0 06/07/18 13:34 97 General Appearance: other - nonverbal Head: normocephalic, atraumatic Eyes: bilateral eye normal inspection, bilateral eye PERRL ENT: hearing grossly normal, normal pharynx, no angioedema, normal voice Neck: full range of motion, supple/symm/no masses Respiratory: chest non-tender, lungs clear, normal breath sounds, speaking full sentences Cardiovascular: HS1, HS2 normal, regular rate, rhythm, no edema, pulses intact Gastrointestinal: normal bowel sounds, non tender, soft, non-distended, no guarding, no rebound Rectal: deferred Genitourinary: normal inspection, no CVA tenderness Musculoskeletal: back normal, gait/station normal, normal range of motion, non- tender Neurologic: other - nonverbal Psychiatric: other - nonverbal Skin: normal color, no rash, warm/dry, well hydrated, pressure ulcer right back ear, right buttock Lymphatic: no adenopathy Impression: Pneumonia Asthma Dysphagia Diabetes Hypertension Congestive Heart Failure Renal Impairment Possible UTI Previous Cerebro Vascular Accident Dementia Pressure ulcers Plan IV Antibiotics Aspiration Precautions IVF Monitor labs PPX O2 PRN HHN [employer] medications Follow cultures Labs Test 06/07/18 12:45 06/07/18 13:30 Urine Color Yellow Urine Appearance Clear Urine pH 5 (4.5-8.0) Urine Specific [place] 1.010 (1.005-1.035) Urine Protein 3+ (NEGATIVE) Urine Glucose (UA) 4+ (NEGATIVE) Urine Ketones Negative (NEGATIVE) Urine Blood 1+ (NEGATIVE) Urine Nitrite Negative (NEGATIVE) Urine Bilirubin Negative (NEGATIVE) Urine Urobilinogen Normal MG/DL (0.0-1.0) Urine Leukocyte Esterase Negative (NEGATIVE) Urine RBC 2-4 /HPF (0 - 0) Urine WBC 0-2 /HPF (0 - 0) Urine Squamous Epithelial Cells Occasional /LPF Urine Bacteria Few /HPF (NONE) Sodium Level 141 MMOL/L (136-145) Potassium Level 4.8 MMOL/L (3.5-5.1) Chloride Level 104 MMOL/L (98-107) Carbon Dioxide Level 31 MMOL/L (21-32) Anion Gap 6 mmol/L (5-15) Blood Urea Nitrogen 63 mg/dL (7-18) Creatinine 1.7 MG/DL (0.55-1.30) Estimat Glomerular Filtration Rate mL/min (>60) Glucose Level 435 MG/DL (74-106) Lactic Acid Level 1.70 mmol/L (0.4-2.0) Calcium Level 11.5 MG/DL (8.5-10.1) Total Bilirubin 0.5 MG/DL (0.2-1.0) Aspartate Amino Transf (AST/SGOT) 15 U/L (15-37) Alanine Aminotransferase (ALT/SGPT) 16 U/L (12-78) Alkaline Phosphatase 101 U/L (46-116) Pro-B-Type Natriuretic Peptide 1081 pg/mL (0-125) Total Protein 7.8 G/DL (6.4-8.2) Albumin 2.6 G/DL (3.4-5.0) Globulin 5.2 g/dL Albumin/Globulin Ratio 0.5 (1.0-2.7) White Blood Count 9.8 K/UL (4.8-10.8) Red Blood Count 4.37 M/UL (4.70-6.10) Hemoglobin 12.6 G/DL (14.2-18.0) Hematocrit 39.4 % (42.0-52.0) Mean Corpuscular Volume 90 FL (80-99) Mean Corpuscular Hemoglobin 28.9 PG (27.0-31.0) Mean Corpuscular Hemoglobin Concent 32.1 G/DL (32.0-36.0) Red Cell Distribution Width 13.9 % (11.6-14.8) Platelet Count 190 K/UL (150-450) Mean Platelet Volume 8.5 FL (6.5-10.1) Neutrophils (%) (Auto) 73.4 % (45.0-75.0) Lymphocytes (%) (Auto) 15.9 % (20.0-45.0) Monocytes (%) (Auto) 9.9 % (1.0-10.0) Eosinophils (%) (Auto) 0.2 % (0.0-3.0) Basophils (%) (Auto) 0.6 % (0.0-2.0) EKG: Rate: normal Rhythm: NSR ST Segments: no acute changes ASA given to the pt in ED: No Chest X-Ray : Interpretation: no pneumothorax, other - atelectasis Impression: Other - atelectasis/pna CXR - bibasilar opacities EKG - NSR, no acute ischemic changes Last Vital Signs Date Time Temp Pulse Resp B/P (MAP) Pulse Ox O2 Delivery O2 Flow Rate FiO2 06/07/18 13:34 88 22 Nasal Cannula 2.0 97 06/07/18 13:34 100.9 144/73 98 Subjective ROS Limited/Unobtainable: Yes Constitutional: Reports: fever Allergies: Coded Allergies: NO KNOWN DRUG ALLERGIES (Unverified Allergy, Unknown, 05/29/14) Objective Last 24 Hour Vital Signs Date Time Temp Pulse Resp B/P (MAP) Pulse Ox O2 Delivery O2 Flow Rate FiO2 06/07/18 16:15 99.3 78 16 154/76 100 Nasal Cannula 2.0 06/07/18 15:12 99.4 06/07/18 14:52 100.9 85 21 156/54 98 Nasal Cannula 2.0 97 06/07/18 13:34 88 22 Nasal Cannula 2.0 97 06/07/18 13:34 100.9 88 23 144/73 98 Nasal Cannula 2.0 06/07/18 12:16 99.7 96 24 141/81 95 Nasal Cannula 2.0 Laboratory Tests 06/07/18 12:45: Urine Color Yellow, Urine Appearance Clear, Urine pH 5, Urine Specific [place] 1.010, Urine Protein 3+H, Urine Glucose (UA) 4+H, Urine Ketones Negative, Urine Blood 1+H, Urine Nitrite Negative, Urine Bilirubin Negative, Urine Urobilinogen Normal, Urine Leukocyte Esterase Negative, Urine RBC 2-4H, Urine WBC 0-2, Urine Squamous Epithelial Cells Occasional, Urine Bacteria Few, Sodium Level 141, Potassium Level 4.8, Chloride Level 104, Carbon Dioxide Level 31, Anion Gap 6, Blood Urea Nitrogen 63H, Creatinine 1.7H, Estimat Glomerular Filtration Rate , Glucose Level 435H, Lactic Acid Level 1.70, Calcium Level 11.5H, Total Bilirubin 0.5, Aspartate Amino Transf (AST/SGOT) 15, Alanine Aminotransferase ( ALT/SGPT) 16, Alkaline Phosphatase 101, Pro-B-Type Natriuretic Peptide 1081H, Total Protein 7.8, Albumin 2.6L, Globulin 5.2, Albumin/Globulin Ratio 0.5L 06/07/18 13:30: White Blood Count 9.8, Red Blood Count 4.37L, Hemoglobin 12.6L, Hematocrit 39.4L , Mean Corpuscular Volume 90, Mean Corpuscular Hemoglobin 28.9, Mean Corpuscular Hemoglobin Concent 32.1, Red Cell Distribution Width 13.9, Platelet Count 190, Mean Platelet Volume 8.5, Neutrophils (%) (Auto) 73.4, Lymphocytes (% ) (Auto) 15.9L, Monocytes (%) (Auto) 9.9, Eosinophils (%) (Auto) 0.2, Basophils (%) (Auto) 0.6 Current Medications Medications (Trade) Dose Ordered Sig/Dimas Route PRN Reason Start Time Stop Time Status Last Admin Dose Admin Sodium Chloride 1,000 ml @ 75 mls/hr [id number] IV 06/07/18 17:00 07/07/18 16:59 John Mac MD Jun 07, 2018 16:57
[2018-06-07] MEDS: Docusate 100mg/10ml Liq GT SCH (18:56)
--- NOTE | 2018-06-07 19:35 | NUR ---
NURSE NOTES: Received patient in bed sleeping arousable to tactile stimuli. No respiratory distress noted. On oxygen at 2L via nasal cannula. No facial grimacing noted. Bed in lowest position and lowest position. HOB elevated for aspiration precaution. IV line intact and patent. Gtube site patent and flush as ordered. No gastric residual noted. 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 Call light within reach. Will continue to monitor.
[2018-06-07] MEDS ORDERED: HydrALAZINE 25mg tab ORAL PRN (21:30)
--- NOTE | 2018-06-07 21:30 | NUR ---
NURSE NOTES: per Dr Mac wants o2 to be given for o2 saturation less than 96
[2018-06-07] MEDS ORDERED: Nystatin Susp 500,000 units/5ml ORAL SCH (22:00)
[2018-06-07] MEDS ORDERED: HydrALAZINE 25mg tab GT SCH (22:00)
--- NOTE | 2018-06-07 22:00 | NUR ---
NURSE NOTES: wound care pictures not uploaded endorsed to 7pm - 7am nurse, also informed that md wanted fluids d/c after 6 hours of gtube infusion
[2018-06-07] MEDS: Heparin 5000 units/ml inj SUBQ SCH (22:11)
[2018-06-07] MEDS: Gabapentin 300 MG/6 ML Soln GT SCH (22:12)
[2018-06-07] MEDS: NovoLOG Insulin Flexpen SUBQ SCH (22:12)
[2018-06-07] MEDS ORDERED: Vancomycin 1.5gm/D5W 275ml IVPB ONE (23:00)
--- NOTE | 2018-06-07 23:30 | NUR ---
NURSE NOTES: Started feeding tube Glucerna 1.5 at 53 cc/hr. Flushed as ordered. Will stop fluid after 6 hrs of feeding. Will continue to monitor.
[2018-06-08] VITALS: BP 125/59
[2018-06-08] MEDS: Piperacillin/Tazobactam 3.375 GM in D5W 110 ML IVPB SCH ×4 (01:19→21:30)
[2018-06-08] MEDS: Albuterol/Ipratropium 3ml neb HHN SCH ×4 (01:25→18:54)
[2018-06-08 04:00] VITALS: BP 149/72
[2018-06-08] MEDS: NovoLOG Insulin Flexpen SUBQ SCH ×4 (06:02→21:29)
--- NOTE | 2018-06-08 07:30 | NUR ---
HAND-OFF: Report given to TERESSA Huber.
[2018-06-08 07:49] LABS: BASOPHILS % (AUTO) 0.7 % (0.0-2.0); EOSINOPHILS % (AUTO) 1.7 % (0.0-3.0); HEMATOCRIT 36.3 % (42.0-52.0); HEMOGLOBIN 11.4 G/DL (14.2-18.0); LYMPHOCYTES % (AUTO) 18.4 % (20.0-45.0); MEAN CORPUSCULAR VOLUME 93 FL (80-99); MONOCYTES % (AUTO) 4.3 % (1.0-10.0); PLATELET COUNT 186 K/UL (150-450); RED BLOOD COUNT 3.92 M/UL (4.70-6.10); WHITE BLOOD COUNT 6.4 K/UL (4.8-10.8)
[2018-06-08 08:00] VITALS: BP 120/68
--- NOTE | 2018-06-08 08:13 | NUR ---
NURSE NOTES: Pt insisted that his upper denture was thrown away with his toothbrush. Allergist began looking for his dentures , and noted that when pt spoke I seen teeth. " I did not mean my teeth, my toothbrush" Pt has been AOX4 in encounters, this morning mildly confused. Call light is in reach . Current plan of care will be followed Addendum: 06/08/18 at 0819 by Cecile Troy RN error in entry wrong pt
[2018-06-08 08:21] LABS: ALANINE AMINOTRANSFERASE 13 U/L (12-78); ALBUMIN 2.3 G/DL (3.4-5.0); ALBUMIN/GLOBULIN RATIO 0.5 (1.0-2.7); ALKALINE PHOSPHATASE 86 U/L (46-116); ANION GAP 9 mmol/L (5-15); ASPARTATE AMINO TRANSFERASE 13 U/L (15-37); BILIRUBIN,TOTAL 0.3 MG/DL (0.2-1.0); BLOOD UREA NITROGEN 54 mg/dL (7-18); CALCIUM 10.2 MG/DL (8.5-10.1); CARBON DIOXIDE 31 MMOL/L (21-32); CHLORIDE 98 MMOL/L (98-107); CHOLESTEROL 144 MG/DL (< 200); CREATINE KINASE 39 U/L (26-308); CREATININE 1.9 MG/DL (0.55-1.30); GAMMA GLUTAMYL TRANSPEPTIDASE 27 U/L (5-85); HDL CHOLESTEROL 27 MG/DL (40-60); PHOSPHORUS 2.3 MG/DL (2.5-4.9); SODIUM 138 MMOL/L (136-145); TRIGLYCERIDES 311 MG/DL (30-150)
--- NOTE | 2018-06-08 08:26 | NUR ---
NURSE NOTES: Lab phoned that pt Troponin level 0.085 and blood sugar is 545. Dr lazo
--- NOTE | 2018-06-08 08:33 | NUR ---
Dr pj call gave orders for Lantus 20 units subq Q12 hours start dose now. He also requested that a consult for Amy be placed 2 to troponin level of 0.085
[2018-06-08] MEDS ORDERED: Nystatin Susp 500,000 units/5ml GT SCH (09:00)
[2018-06-08] MEDS: Gabapentin 300 MG/6 ML Soln GT SCH ×3 (09:00→18:02)
[2018-06-08] MEDS: Aspirin Baby 81mg GT SCH (09:32)
[2018-06-08] MEDS: Docusate 100mg/10ml Liq GT SCH ×2 (09:33→18:02)
[2018-06-08] MEDS: Nystatin Susp 500,000 units/5ml GT SCH ×2 (09:33→18:02)
[2018-06-08] MEDS: Heparin 5000 units/ml inj SUBQ SCH ×2 (09:35→21:27)
[2018-06-08] MEDS ORDERED: NovoLOG Insulin Flexpen SUBQ ONE (11:30)
[2018-06-08] MEDS: Levemir Flexpen SUBQ SCH ×2 (11:31→21:28)
[2018-06-08 12:00] VITALS: BP 142/79
--- NOTE | 2018-06-08 12:57 | Nephrology Progress Note ---
Assessment/Plan Problem List: (1) Renal failure (ARF), acute on chronic (2) Diabetic nephropathy Assessment CKD with baseline Cr 1.6 Pre Renal Azotemia superimposed on CKD DM OOC Diabetic Nephropathy Proteinuria and HypoAlbuminemia High Ca likely dehydration Plan Hydrate Antibiotics Per ID Monitor renal parameters Urine studies adjust electrolytes Subjective ROS Limited/Unobtainable: No Constitutional: Reports: malaise Objective Objective Last 24 Hour Vital Signs Date Time Temp Pulse Resp B/P (MAP) Pulse Ox O2 Delivery O2 Flow Rate FiO2 06/08/18 09:32 68 128/78 06/08/18 07:44 84 18 99 Nasal Cannula 2.0 28 06/08/18 07:34 97 Nasal Cannula 2.0 28 06/08/18 07:34 Nasal Cannula 2.0 28 06/08/18 07:34 81 17 97 Nasal Cannula 2.0 28 06/08/18 04:00 97.3 85 17 149/72 (97) 94 06/08/18 01:37 72 22 100 Nasal Cannula 2.0 28 06/08/18 01:27 69 22 98 Nasal Cannula 2.0 28 06/08/18 01:24 Nasal Cannula 2.0 28 06/08/18 01:24 96 Nasal Cannula 2.0 28 06/08/18 00:58 Nasal Cannula 2.0 06/08/18 00:00 97.9 74 17 125/59 (81) 95 06/07/18 21:00 Nasal Cannula 2.0 06/07/18 17:15 Nasal Cannula 2.0 06/07/18 17:15 Nasal Cannula 2.0 06/07/18 16:15 99.3 78 16 154/76 100 Nasal Cannula 2.0 06/07/18 15:12 99.4 06/07/18 14:52 100.9 85 21 156/54 98 Nasal Cannula 2.0 97 06/07/18 13:34 88 22 Nasal Cannula 2.0 97 06/07/18 13:34 100.9 88 23 144/73 98 Nasal Cannula 2.0 Intake and Output 06/07/18 06/08/18 19:00 07:00 Intake Total 1150 ml 984.0 ml Output Total 1200 ml Balance -50 ml 984.0 ml Intake Free Water 150 ml IV Total 1150 ml 410.0 ml Tube Feeding 424 ml Output Urine Total 1200 ml # Bowel Movements 1 Laboratory Tests 06/07/18 13:30: White Blood Count 9.8, Red Blood Count 4.37L, Hemoglobin 12.6L, Hematocrit 39.4L , Mean Corpuscular Volume 90, Mean Corpuscular Hemoglobin 28.9, Mean Corpuscular Hemoglobin Concent 32.1, Red Cell Distribution Width 13.9, Platelet Count 190, Mean Platelet Volume 8.5, Neutrophils (%) (Auto) 73.4, Lymphocytes (% ) (Auto) 15.9L, Monocytes (%) (Auto) 9.9, Eosinophils (%) (Auto) 0.2, Basophils (%) (Auto) 0.6 06/08/18 07:10: White Blood Count 6.4, Red Blood Count 3.92L, Hemoglobin 11.4L, Hematocrit 36.3L , Mean Corpuscular Volume 93, Mean Corpuscular Hemoglobin 29.2, Mean Corpuscular Hemoglobin Concent 31.4L, Red Cell Distribution Width 14.0, Platelet Count 186, Mean Platelet Volume 8.6, Neutrophils (%) (Auto) 75.0, Lymphocytes (%) (Auto) 18.4L, Monocytes (%) (Auto) 4.3, Eosinophils (%) (Auto) 1.7, Basophils (%) (Auto) 0.7, Sodium Level 138, Potassium Level 4.0, Chloride Level 98, Carbon Dioxide Level 31, Anion Gap 9, Blood Urea Nitrogen 54H, Creatinine 1.9H, Estimat Glomerular Filtration Rate , Glucose Level 545#*H, Hemoglobin A1c 8.3H, Uric Acid 7.3H, Calcium Level 10.2H, Phosphorus Level 2.3L , Magnesium Level 2.4, Total Bilirubin 0.3, Gamma Glutamyl Transpeptidase 27, Aspartate Amino Transf (AST/SGOT) 13L, Alanine Aminotransferase (ALT/SGPT) 13, Alkaline Phosphatase 86, Total Creatine Kinase 39, Troponin I 0.085H, Pro-B- Type Natriuretic Peptide 677H, Total Protein 7.4, Albumin 2.3L, Globulin 5.1, Albumin/Globulin Ratio 0.5L, Triglycerides Level 311H, Cholesterol Level 144, LDL Cholesterol 78, HDL Cholesterol 27L, Cholesterol/HDL Ratio 5.3H, Thyroid Stimulating Hormone (TSH) 0.775 Height (Feet): 5 Height (Inches): 7.00 Weight (Pounds): 169 Hansel Kirkpatrick MD Jun 08, 2018 12:57
--- NOTE | 2018-06-08 13:41 | General Progress Note ---
Assessment/Plan Problem List: (1) UTI (urinary tract infection) ICD Codes: N39.0 - Urinary tract infection, site not specified SNOMED: 51245376 (2) Dementia ICD Codes: F03.90 - Unspecified dementia without behavioral disturbance SNOMED: 19580632 (3) ATN (acute tubular necrosis) ICD Codes: N17.0 - Acute kidney failure with tubular necrosis SNOMED: 66237869 (4) History of CVA (cerebrovascular accident) ICD Codes: Z86.73 - Personal history of transient ischemic attack (TIA), and cerebral infarction without residual deficits SNOMED: 191157652 (5) Diabetes ICD Codes: E11.9 - Type 2 diabetes mellitus without complications SNOMED: 32962373 (6) HTN (hypertension) ICD Codes: I10 - Essential (primary) hypertension SNOMED: 90166193 (7) CHF (congestive heart failure) ICD Codes: I50.9 - Heart failure, unspecified SNOMED: 46915194 (8) Elevated troponin level ICD Codes: R74.8 - Abnormal levels of other serum enzymes SNOMED: 399918760, 199308746, 589547800 (9) Sepsis ICD Codes: A41.9 - Sepsis SNOMED: 83285263 Status: progressing Assessment/Plan chf elevated trop 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 operator no cp afebrile vitals stable reviewed chart Subjective ROS Limited/Unobtainable: Yes Allergies: Coded Allergies: NO KNOWN DRUG ALLERGIES (Unverified Allergy, Unknown, 05/29/14) Objective Last 24 Hour Vital Signs Date Time Temp Pulse Resp B/P (MAP) Pulse Ox O2 Delivery O2 Flow Rate FiO2 06/08/18 13:27 82 21 99 Nasal Cannula 2.0 28 06/08/18 13:16 82 22 99 Nasal Cannula 2.0 28 06/08/18 09:32 68 128/78 06/08/18 07:44 84 18 99 Nasal Cannula 2.0 28 06/08/18 07:34 97 Nasal Cannula 2.0 28 06/08/18 07:34 Nasal Cannula 2.0 28 06/08/18 07:34 81 17 97 Nasal Cannula 2.0 28 06/08/18 04:00 97.3 85 17 149/72 (97) 94 06/08/18 01:37 72 22 100 Nasal Cannula 2.0 28 06/08/18 01:27 69 22 98 Nasal Cannula 2.0 28 06/08/18 01:24 Nasal Cannula 2.0 28 06/08/18 01:24 96 Nasal Cannula 2.0 28 06/08/18 00:58 Nasal Cannula 2.0 06/08/18 00:00 97.9 74 17 125/59 (81) 95 06/07/18 21:00 Nasal Cannula 2.0 06/07/18 17:15 Nasal Cannula 2.0 06/07/18 17:15 Nasal Cannula 2.0 06/07/18 16:15 99.3 78 16 154/76 100 Nasal Cannula 2.0 06/07/18 15:12 99.4 06/07/18 14:52 100.9 85 21 156/54 98 Nasal Cannula 2.0 97 Intake and Output 06/07/18 06/08/18 18:59 06:59 Intake Total 1150 ml 931.0 ml Output Total 1200 ml Balance -50 ml 931.0 ml Intake Free Water 150 ml IV Total 1150 ml 410.0 ml Tube Feeding 371 ml Output Urine Total 1200 ml # Bowel Movements 1 Laboratory Tests 06/08/18 07:10: White Blood Count 6.4, Red Blood Count 3.92L, Hemoglobin 11.4L, Hematocrit 36.3L , Mean Corpuscular Volume 93, Mean Corpuscular Hemoglobin 29.2, Mean Corpuscular Hemoglobin Concent 31.4L, Red Cell Distribution Width 14.0, Platelet Count 186, Mean Platelet Volume 8.6, Neutrophils (%) (Auto) 75.0, Lymphocytes (%) (Auto) 18.4L, Monocytes (%) (Auto) 4.3, Eosinophils (%) (Auto) 1.7, Basophils (%) (Auto) 0.7, Sodium Level 138, Potassium Level 4.0, Chloride Level 98, Carbon Dioxide Level 31, Anion Gap 9, Blood Urea Nitrogen 54H, Creatinine 1.9H, Estimat Glomerular Filtration Rate , Glucose Level 545#*H, Hemoglobin A1c 8.3H, Uric Acid 7.3H, Calcium Level 10.2H, Phosphorus Level 2.3L , Magnesium Level 2.4, Total Bilirubin 0.3, Gamma Glutamyl Transpeptidase 27, Aspartate Amino Transf (AST/SGOT) 13L, Alanine Aminotransferase (ALT/SGPT) 13, Alkaline Phosphatase 86, Total Creatine Kinase 39, Troponin I 0.085H, Pro-B- Type Natriuretic Peptide 677H, Total Protein 7.4, Albumin 2.3L, Globulin 5.1, Albumin/Globulin Ratio 0.5L, Triglycerides Level 311H, Cholesterol Level 144, LDL Cholesterol 78, HDL Cholesterol 27L, Cholesterol/HDL Ratio 5.3H, Thyroid Stimulating Hormone (TSH) 0.775 Height (Feet): 5 Height (Inches): 7.00 Weight (Pounds): 169 Neck: supple Cardiovascular: regular rhythm Respiratory/Chest: lungs clear Abdomen: soft Pool Monson MD Jun 08, 2018 13:41
--- NOTE | 2018-06-08 15:11 | Pulmonology Progress Note ---
Assessment/Plan Assessment/Plan Pulmonary Progress Note HPI Patient is an 83-year-old male [facility] resident with PMH of Diabetes, Hypertension, Congestive Heart Failure, Previous Cerebro Vascular Accident, Dementia, Asthma, who presents after having a fever of 101. Patient is nonverbal at baseline. No signs of distress. No reported cough or shortness of breath. No nausea or vomiting. No other aggravating relieving factors. No other associated symptoms. Noted to have evidence of UTI and Pneumonia. GPC on BC, on Zosyn/Vanc, stable over night Allergies: NO KNOWN DRUG ALLERGIES Past Medical History: DM, HTN, CHF, asthma, CVA/TIA, dementia, dysphagia Past Surgical History: none s All Other Systems: limited Physical Exam Vital Signs Noted Date Time Temp Pulse Resp B/P (MAP) Pulse Ox O2 Delivery O2 Flow Rate FiO2 06/07/18 12:16 99.7 96 24 141/81 95 Nasal Cannula 2.0 06/07/18 13:34 97 General Appearance: other - nonverbal Head: normocephalic, atraumatic Eyes: bilateral eye normal inspection, bilateral eye PERRL ENT: hearing grossly normal, normal pharynx, no angioedema, normal voice Neck: full range of motion, supple/symm/no masses Respiratory: chest non-tender, lungs clear, normal breath sounds, speaking full sentences Cardiovascular: HS1, HS2 normal, regular rate, rhythm, no edema, pulses intact Gastrointestinal: normal bowel sounds, non tender, soft, non-distended, no guarding, no rebound Rectal: deferred Genitourinary: normal inspection, no CVA tenderness Musculoskeletal: back normal, gait/station normal, normal range of motion, non- tender Neurologic: other - nonverbal Psychiatric: other - nonverbal Skin: normal color, no rash, warm/dry, well hydrated, pressure ulcer right back ear, right buttock Lymphatic: no adenopathy Impression: Pneumonia Asthma Dysphagia Diabetes Hypertension Congestive Heart Failure Renal Impairment Possible UTI Previous Cerebro Vascular Accident Dementia Pressure ulcers Plan IV Antibiotics Aspiration Precautions IVF Monitor labs PPX O2 PRN HHN ER RN medications Follow cultures Labs Test 06/07/18 12:45 06/07/18 13:30 Urine Color Yellow Urine Appearance Clear Urine pH 5 (4.5-8.0) Urine Specific [place] 1.010 (1.005-1.035) Urine Protein 3+ (NEGATIVE) Urine Glucose (UA) 4+ (NEGATIVE) Urine Ketones Negative (NEGATIVE) Urine Blood 1+ (NEGATIVE) Urine Nitrite Negative (NEGATIVE) Urine Bilirubin Negative (NEGATIVE) Urine Urobilinogen Normal MG/DL (0.0-1.0) Urine Leukocyte Esterase Negative (NEGATIVE) Urine RBC 2-4 /HPF (0 - 0) Urine WBC 0-2 /HPF (0 - 0) Urine Squamous Epithelial Cells Occasional /LPF Urine Bacteria Few /HPF (NONE) Sodium Level 141 MMOL/L (136-145) Potassium Level 4.8 MMOL/L (3.5-5.1) Chloride Level 104 MMOL/L (98-107) Carbon Dioxide Level 31 MMOL/L (21-32) Anion Gap 6 mmol/L (5-15) Blood Urea Nitrogen 63 mg/dL (7-18) Creatinine 1.7 MG/DL (0.55-1.30) Estimat Glomerular Filtration Rate mL/min (>60) Glucose Level 435 MG/DL (74-106) Lactic Acid Level 1.70 mmol/L (0.4-2.0) Calcium Level 11.5 MG/DL (8.5-10.1) Total Bilirubin 0.5 MG/DL (0.2-1.0) Aspartate Amino Transf (AST/SGOT) 15 U/L (15-37) Alanine Aminotransferase (ALT/SGPT) 16 U/L (12-78) Alkaline Phosphatase 101 U/L (46-116) Pro-B-Type Natriuretic Peptide 1081 pg/mL (0-125) Total Protein 7.8 G/DL (6.4-8.2) Albumin 2.6 G/DL (3.4-5.0) Globulin 5.2 g/dL Albumin/Globulin Ratio 0.5 (1.0-2.7) White Blood Count 9.8 K/UL (4.8-10.8) Red Blood Count 4.37 M/UL (4.70-6.10) Hemoglobin 12.6 G/DL (14.2-18.0) Hematocrit 39.4 % (42.0-52.0) Mean Corpuscular Volume 90 FL (80-99) Mean Corpuscular Hemoglobin 28.9 PG (27.0-31.0) Mean Corpuscular Hemoglobin Concent 32.1 G/DL (32.0-36.0) Red Cell Distribution Width 13.9 % (11.6-14.8) Platelet Count 190 K/UL (150-450) Mean Platelet Volume 8.5 FL (6.5-10.1) Neutrophils (%) (Auto) 73.4 % (45.0-75.0) Lymphocytes (%) (Auto) 15.9 % (20.0-45.0) Monocytes (%) (Auto) 9.9 % (1.0-10.0) Eosinophils (%) (Auto) 0.2 % (0.0-3.0) Basophils (%) (Auto) 0.6 % (0.0-2.0) EKG: Rate: normal Rhythm: NSR ST Segments: no acute changes ASA given to the pt in ED: No Chest X-Ray : Interpretation: no pneumothorax, other - atelectasis Impression: Other - atelectasis/pna CXR - bibasilar opacities EKG - NSR, no acute ischemic changes Last Vital Signs Date Time Temp Pulse Resp B/P (MAP) Pulse Ox O2 Delivery O2 Flow Rate FiO2 06/07/18 13:34 88 22 Nasal Cannula 2.0 97 06/07/18 13:34 100.9 144/73 98 Subjective ROS Limited/Unobtainable: No Allergies: Coded Allergies: NO KNOWN DRUG ALLERGIES (Unverified Allergy, Unknown, 05/29/14) Objective Last 24 Hour Vital Signs Date Time Temp Pulse Resp B/P (MAP) Pulse Ox O2 Delivery O2 Flow Rate FiO2 06/08/18 13:27 82 21 99 Nasal Cannula 2.0 28 06/08/18 13:16 82 22 99 Nasal Cannula 2.0 28 06/08/18 12:00 97.2 81 16 142/79 (100) 95 06/08/18 09:32 68 128/78 06/08/18 09:00 Room Air 06/08/18 08:00 98.0 89 18 120/68 (85) 94 06/08/18 07:44 84 18 99 Nasal Cannula 2.0 28 06/08/18 07:34 97 Nasal Cannula 2.0 28 06/08/18 07:34 Nasal Cannula 2.0 28 06/08/18 07:34 81 17 97 Nasal Cannula 2.0 28 06/08/18 04:00 97.3 85 17 149/72 (97) 94 06/08/18 01:37 72 22 100 Nasal Cannula 2.0 28 06/08/18 01:27 69 22 98 Nasal Cannula 2.0 28 06/08/18 01:24 Nasal Cannula 2.0 28 06/08/18 01:24 96 Nasal Cannula 2.0 28 06/08/18 00:58 Nasal Cannula 2.0 06/08/18 00:00 97.9 74 17 125/59 (81) 95 06/07/18 21:00 Nasal Cannula 2.0 06/07/18 17:15 Nasal Cannula 2.0 06/07/18 17:15 Nasal Cannula 2.0 06/07/18 16:15 99.3 78 16 154/76 100 Nasal Cannula 2.0 06/07/18 15:12 99.4 Intake and Output 06/07/18 06/08/18 18:59 06:59 Intake Total 1150 ml 931.0 ml Output Total 1200 ml Balance -50 ml 931.0 ml Intake Free Water 150 ml IV Total 1150 ml 410.0 ml Tube Feeding 371 ml Output Urine Total 1200 ml # Bowel Movements 1 Microbiology Date/Time Source Procedure Growth Status 06/07/18 12:45 Blood Blood Culture - Preliminary Resulted Laboratory Tests 06/08/18 07:10: White Blood Count 6.4, Red Blood Count 3.92L, Hemoglobin 11.4L, Hematocrit 36.3L , Mean Corpuscular Volume 93, Mean Corpuscular Hemoglobin 29.2, Mean Corpuscular Hemoglobin Concent 31.4L, Red Cell Distribution Width 14.0, Platelet Count 186, Mean Platelet Volume 8.6, Neutrophils (%) (Auto) 75.0, Lymphocytes (%) (Auto) 18.4L, Monocytes (%) (Auto) 4.3, Eosinophils (%) (Auto) 1.7, Basophils (%) (Auto) 0.7, Sodium Level 138, Potassium Level 4.0, Chloride Level 98, Carbon Dioxide Level 31, Anion Gap 9, Blood Urea Nitrogen 54H, Creatinine 1.9H, Estimat Glomerular Filtration Rate , Glucose Level 545#*H, Hemoglobin A1c 8.3H, Uric Acid 7.3H, Calcium Level 10.2H, Phosphorus Level 2.3L , Magnesium Level 2.4, Total Bilirubin 0.3, Gamma Glutamyl Transpeptidase 27, Aspartate Amino Transf (AST/SGOT) 13L, Alanine Aminotransferase (ALT/SGPT) 13, Alkaline Phosphatase 86, Total Creatine Kinase 39, Troponin I 0.085H, Pro-B- Type Natriuretic Peptide 677H, Total Protein 7.4, Albumin 2.3L, Globulin 5.1, Albumin/Globulin Ratio 0.5L, Triglycerides Level 311H, Cholesterol Level 144, LDL Cholesterol 78, HDL Cholesterol 27L, Cholesterol/HDL Ratio 5.3H, Thyroid Stimulating Hormone (TSH) 0.775 Current Medications Medications (Trade) Dose Ordered Sig/Dimas Route PRN Reason Start Time Stop Time Status Last Admin Dose Admin Albuterol/ Ipratropium (Albuterol/ Ipratropium) 3 ml Q6HRT HHN 06/07/18 21:30 06/12/18 21:29 06/08/18 13:16 Amlodipine Besylate (Norvasc) 2.5 mg DAILY GT 06/08/18 09:00 07/08/18 08:59 06/08/18 09:32 Aspirin (ASA) 81 mg DAILY GT 06/08/18 09:00 07/08/18 08:59 06/08/18 09:32 Dextrose 1,000 ml @ 50 mls/hr Q20H IV 06/07/18 19:00 07/07/18 18:59 06/07/18 19:15 Dextrose (Dextrose 50%) 25 ml Q30M PRN IV Hypoglycemia 06/07/18 21:30 07/07/18 21:29 Dextrose (Dextrose 50%) 50 ml Q30M PRN IV Hypoglycemia 06/07/18 21:30 07/07/18 21:29 Docusate Sodium (Colace) 100 mg BID GT 06/07/18 18:00 07/07/18 17:59 06/08/18 09:33 Gabapentin (Neurontin) 300 mg THREE TIMES A DAY GT 06/07/18 23:00 07/07/18 22:59 06/08/18 14:57 Heparin Sodium (Porcine) (Heparin 5000 units/ml) 5,000 units EVERY 12 HOURS SUBQ 06/07/18 21:00 07/07/18 20:59 06/08/18 09:35 Hydralazine HCl (Apresoline) 25 mg Q6H PRN ORAL SBP > 180mmHg 06/07/18 21:30 07/07/18 21:29 Insulin Aspart (NovoLOG) BEFORE MEALS AND HS SUBQ 06/07/18 22:00 07/07/18 21:59 06/08/18 11:34 Insulin Detemir (Levemir) 20 units EVERY 12 HOURS SUBQ 06/08/18 09:30 07/08/18 09:29 06/08/18 11:31 Lansoprazole (Prevacid) 30 mg BID GT 06/07/18 18:00 07/07/18 17:59 06/08/18 09:32 Nystatin (Nystatin) 5 ml BID GT 06/08/18 09:00 06/15/18 08:59 06/08/18 09:33 Piperacillin Sod/ Tazobactam Sod 3.375 gm/Dextrose 110 ml @ 27.5 mls/hr Q8HR IVPB 06/08/18 01:00 06/15/18 00:59 06/08/18 06:01 Vancomycin HCl (Vanco rx to dose) 1 ea DAILY PRN MISC Per rx protocol 06/07/18 21:45 07/07/18 21:44 John Mac MD Jun 08, 2018 15:11
--- NOTE | 2018-06-08 15:59 | Consultation ---
History of Present Illness General Date patient seen: Jun 08, 2018 Chief Complaint: Fever Reason for Consultation: wounds Present Illness HPI 83-year-old male [facility] resident with PMH of Diabetes, Hypertension, Congestive Heart Failure, Previous Cerebro Vascular Accident, Dementia, Asthma, who presents after having a fever of 101. On admission noted to have multiple wounds. surgery called to evaluate and assist with care / management. patient seen, chart reviewed, patient examined. patient non verbal at baseline. comfortable. Allergies: Coded Allergies: NO KNOWN DRUG ALLERGIES (Unverified Allergy, Unknown, 05/29/14) Medication History Scheduled Acetaminophen (Tylenol), 325 MG Q6H, (Reported) Amlodipine Besylate (Norvasc), 5 MG GT DAILY, (Reported) Amlodipine Besylate (Norvasc), 2.5 MG GT DAILY, (Reported) Aspirin* (Aspir 81*), 81 MG GT DAILY, (Reported) Calcium Carbonate (Calcium Carbonate), 500 MG GT BID, (Reported) Calcium/Cranberry Fruit (Cranberry 400 Mg Caplet), 1 EACH PO EVERY 12 HOURS, ( Reported) Docusate Sodium (Docusate Sodium), 100 MG GT BID, (Reported) Fish Oil (Fish Oil 1,000 mg Capsule), 1,000 MG GT DAILY, (Reported) Furosemide* (Lasix*), 40 MG ORAL DAILY Furosemide* (Lasix*), 40 MG GT DAILY, (Reported) Gabapentin (Neurontin), 300 MG GT THREE TIMES A DAY, (Reported) Gabapentin (Gabapentin), 300 MG GT THREE TIMES A DAY, (Reported) Gabapentin (Neurontin), 300 MG ORAL BEDTIME, (Reported) Gabapentin* (Neurontin*), 300 MG GT THREE TIMES A DAY, (Reported) Glipizide* (Glucotrol*), 10 MG GT BID, (Reported) Glyburide* (Diabeta*), 5 MG GT BIAC, (Reported) Hydralazine HCl (Hydralazine HCl), 50 MG GT EVERY 8 HOURS Hydralazine Hcl* (Hydralazine Hcl*), 25 MG GT EVERY 8 HOURS, (Reported) Insulin Aspart (Novolog Flexpen), 0 UNITS SUBQ BEFORE MEALS AND HS Insulin Aspart (Novolog Flexpen), Q6HR, (Reported) Insulin Glargine (Lantus), 32 UNITS SUBQ BEDTIME, (Reported) Levofloxacin (Levofloxacin*), 750 MG GT QOD, (Reported) Levofloxacin* (Levaquin*), 250 MG GT DAILY Levofloxacin-D5w 500 Mg/100 Ml* (Levofloxacin-D5w 500 Mg/100 Ml*), 500 MG GT QOD , (Reported) Multivitamin With Minerals (Multivitamins With Minerals*), 1 TAB ORAL DAILY, ( Reported) Na Phos,M-B/Na Phos,Di-Ba* (Fleet Enema*), 118 ML RECTAL DAILY, (Reported) Nystatin (Nystatin), 100,000 UNIT ORAL BID, (Reported) Pravastatin Sod (Pravastatin Sod), 40 MG GT BEDTIME, (Reported) Vit C/Ascorbate Ca/Ascorb Sod (Vitamin C 500 Mg/15 Ml Liquid), 500 MG GT BID, ( Reported) Scheduled PRN Acetaminophen 160MG/5ML* (Acetaminophen*), 20 ML GT Q4HR PRN for Fever/Headache/ Mild Pain, (Reported) Acetaminophen* (Acetaminophen 325MG Tablet*), 650 MG ORAL Q4H PRN for Fever/ Headache/Mild Pain, (Reported) Acetaminophen* (Acetaminophen 325MG Tablet*), 650 MG ORAL Q4H PRN for Fever/ Headache/Mild Pain, (Reported) Acetaminophen* (Acetaminophen 325MG Tablet*), 650 MG GT Q4H PRN for Fever/ Headache/Mild Pain, (Reported) Magnesium Hydroxide* (Milk Of Magnesia*), 30 ML ORAL HS PRN for Constipation, ( Reported) Na Phos,M-B/Na Phos,Di-Ba* (Fleet Enema*), 133 ML RECTAL DAILY PRN for CON, ( Reported) Polyethylene Glycol 3350* (Miralax*), 17 GM ORAL DAILY PRN for Constipation, ( Reported) Miscellaneous Medications Calcium Carbonate/Vitamin D3 (Calcium + Vitamin D Tablet), Unknown Dose PO, ( Reported) Clonidine HCl (Clonidine HCl), 0.1 MG GT, (Reported) Insulin Lispro (Humalog), 0 SUBQ, (Reported) Insulin Lispro (Humalog), 0 SUBQ, (Reported) Insulin Lispro (Humalog), Unknown Dose SUBQ, (Reported) Ipratropium/Albuterol Sulfate (DuoNeb 0.5-3(2.5)mg/3ml), 3 ML HHN, (Reported) Nitroglycerin (Nitroglycerin), 0.4 MG SL, (Reported) Patient History Limited by: medical condition History Provided By: Medical Record, PMD Healthcare decision maker Resuscitation status Full Code Advanced Directive on File No Past Medical/Surgical History Past Medical/Surgical History: (1) Renal insufficiency (2) Fever (3) Malfunction of gastrostomy tube (4) UTI (urinary tract infection) (5) Dementia (6) ATN (acute tubular necrosis) (7) Feeding by G-tube (8) History of CVA (cerebrovascular accident) (9) Diabetes (10) CHF (congestive heart failure) (11) HTN (hypertension) (12) Elevated troponin level (13) Hyponatremia (14) Sepsis (15) PNA (pneumonia) (16) Malfunction of gastrostomy tube (17) Acute respiratory failure Review of Systems ROS Narrative cannot obtain given medical condition Physical Exam General Appearance: no apparent distress Lines, tubes and drains: peripheral HEENT: mucous membranes moist Neck: normal inspection Respiratory/Chest: no respiratory distress, no accessory muscle use Cardiovascular/Chest: regular rhythm Abdomen: soft, no organomegaly, no mass, feeding tube Extremities: normal inspection, other Skin Exam: other Neurologic: unresponsiveness Last 24 Hour Vital Signs Date Time Temp Pulse Resp B/P (MAP) Pulse Ox O2 Delivery O2 Flow Rate FiO2 06/08/18 13:27 82 21 99 Nasal Cannula 2.0 28 06/08/18 13:16 82 22 99 Nasal Cannula 2.0 28 06/08/18 12:00 97.2 81 16 142/79 (100) 95 06/08/18 09:32 68 128/78 06/08/18 09:00 Room Air 06/08/18 08:00 98.0 89 18 120/68 (85) 94 06/08/18 07:44 84 18 99 Nasal Cannula 2.0 28 06/08/18 07:34 97 Nasal Cannula 2.0 28 06/08/18 07:34 Nasal Cannula 2.0 28 06/08/18 07:34 81 17 97 Nasal Cannula 2.0 28 06/08/18 04:00 97.3 85 17 149/72 (97) 94 06/08/18 01:37 72 22 100 Nasal Cannula 2.0 28 06/08/18 01:27 69 22 98 Nasal Cannula 2.0 28 06/08/18 01:24 Nasal Cannula 2.0 28 06/08/18 01:24 96 Nasal Cannula 2.0 28 06/08/18 00:58 Nasal Cannula 2.0 06/08/18 00:00 97.9 74 17 125/59 (81) 95 06/07/18 21:00 Nasal Cannula 2.0 06/07/18 17:15 Nasal Cannula 2.0 06/07/18 17:15 Nasal Cannula 2.0 06/07/18 16:15 99.3 78 16 154/76 100 Nasal Cannula 2.0 Intake and Output 06/07/18 06/08/18 18:59 06:59 Intake Total 1150 ml 931.0 ml Output Total 1200 ml Balance -50 ml 931.0 ml Intake Free Water 150 ml IV Total 1150 ml 410.0 ml Tube Feeding 371 ml Output Urine Total 1200 ml # Bowel Movements 1 Laboratory Tests Test 06/08/18 07:10 White Blood Count 6.4 K/UL (4.8-10.8) Red Blood Count 3.92 M/UL (4.70-6.10) L Hemoglobin 11.4 G/DL (14.2-18.0) L Hematocrit 36.3 % (42.0-52.0) L Mean Corpuscular Volume 93 FL (80-99) Mean Corpuscular Hemoglobin 29.2 PG (27.0-31.0) Mean Corpuscular Hemoglobin Concent 31.4 G/DL (32.0-36.0) L Red Cell Distribution Width 14.0 % (11.6-14.8) Platelet Count 186 K/UL (150-450) Mean Platelet Volume 8.6 FL (6.5-10.1) Neutrophils (%) (Auto) 75.0 % (45.0-75.0) Lymphocytes (%) (Auto) 18.4 % (20.0-45.0) L Monocytes (%) (Auto) 4.3 % (1.0-10.0) Eosinophils (%) (Auto) 1.7 % (0.0-3.0) Basophils (%) (Auto) 0.7 % (0.0-2.0) Sodium Level 138 MMOL/L (136-145) Potassium Level 4.0 MMOL/L (3.5-5.1) Chloride Level 98 MMOL/L (98-107) Carbon Dioxide Level 31 MMOL/L (21-32) Anion Gap 9 mmol/L (5-15) Blood Urea Nitrogen 54 mg/dL (7-18) H Creatinine 1.9 MG/DL (0.55-1.30) H Estimat Glomerular Filtration Rate mL/min (>60) Glucose Level 545 MG/DL (74-106) #*H Hemoglobin A1c 8.3 % (4.3-6.0) H Uric Acid 7.3 MG/DL (2.6-7.2) H Calcium Level 10.2 MG/DL (8.5-10.1) H Phosphorus Level 2.3 MG/DL (2.5-4.9) L Magnesium Level 2.4 MG/DL (1.8-2.4) Total Bilirubin 0.3 MG/DL (0.2-1.0) Gamma Glutamyl Transpeptidase 27 U/L (5-85) Aspartate Amino Transf (AST/SGOT) 13 U/L (15-37) L Alanine Aminotransferase (ALT/SGPT) 13 U/L (12-78) Alkaline Phosphatase 86 U/L (46-116) Total Creatine Kinase 39 U/L (26-308) Troponin I 0.085 ng/mL (0.000-0.056) Pro-B-Type Natriuretic Peptide 677 pg/mL (0-125) H Total Protein 7.4 G/DL (6.4-8.2) Albumin 2.3 G/DL (3.4-5.0) L Globulin 5.1 g/dL Albumin/Globulin Ratio 0.5 (1.0-2.7) L Triglycerides Level 311 MG/DL (30-150) H Cholesterol Level 144 MG/DL (< 200) LDL Cholesterol 78 mg/dL (<100) HDL Cholesterol 27 MG/DL (40-60) L Cholesterol/HDL Ratio 5.3 (3.3-4.4) H Thyroid Stimulating Hormone (TSH) 0.775 uiU/mL (0.358-3.740) Height (Feet): 5 Height (Inches): 7.00 Weight (Pounds): 169 Medications Current Medications Medications (Trade) Dose Ordered Sig/Dimas Route PRN Reason Start Time Stop Time Status Last Admin Dose Admin Albuterol/ Ipratropium (Albuterol/ Ipratropium) 3 ml Q6HRT HHN 06/07/18 21:30 06/12/18 21:29 06/08/18 13:16 Amlodipine Besylate (Norvasc) 2.5 mg DAILY GT 06/08/18 09:00 07/08/18 08:59 06/08/18 09:32 Aspirin (ASA) 81 mg DAILY GT 06/08/18 09:00 07/08/18 08:59 06/08/18 09:32 Dextrose 1,000 ml @ 50 mls/hr Q20H IV 06/07/18 19:00 07/07/18 18:59 06/08/18 15:51 Dextrose (Dextrose 50%) 25 ml Q30M PRN IV Hypoglycemia 06/07/18 21:30 07/07/18 21:29 Dextrose (Dextrose 50%) 50 ml Q30M PRN IV Hypoglycemia 06/07/18 21:30 07/07/18 21:29 Docusate Sodium (Colace) 100 mg BID GT 06/07/18 18:00 07/07/18 17:59 06/08/18 09:33 Gabapentin (Neurontin) 300 mg THREE TIMES A DAY GT 06/07/18 23:00 07/07/18 22:59 06/08/18 14:57 Heparin Sodium (Porcine) (Heparin 5000 units/ml) 5,000 units EVERY 12 HOURS SUBQ 06/07/18 21:00 07/07/18 20:59 06/08/18 09:35 Hydralazine HCl (Apresoline) 25 mg Q6H PRN ORAL SBP > 180mmHg 06/07/18 21:30 07/07/18 21:29 Insulin Aspart (NovoLOG) BEFORE MEALS AND HS SUBQ 06/07/18 22:00 07/07/18 21:59 06/08/18 11:34 Insulin Detemir (Levemir) 20 units EVERY 12 HOURS SUBQ 06/08/18 09:30 07/08/18 09:29 06/08/18 11:31 Lansoprazole (Prevacid) 30 mg BID GT 06/07/18 18:00 07/07/18 17:59 06/08/18 09:32 Nystatin (Nystatin) 5 ml BID GT 06/08/18 09:00 06/15/18 08:59 06/08/18 09:33 Piperacillin Sod/ Tazobactam Sod 3.375 gm/Dextrose 110 ml @ 27.5 mls/hr Q8HR IVPB 06/08/18 01:00 06/15/18 00:59 06/08/18 15:50 Vancomycin HCl (Vanco rx to dose) 1 ea DAILY PRN MISC Per rx protocol 06/07/18 21:45 07/07/18 21:44 Assessment/Plan Problem List: (1) Multiple wounds Assessment & Plan: Patient presents with multiple wounds bilateral ear skin irritation - please place gauze or protective padding then nasal cannula buttock 3cm x 2cm full thickness decubitus ulceration - please wash daily, apply hydrogel, cover with foam protective dressings turn q2h air mattress heel protectors thank you ICD Codes: T07.XXXA - Unspecified multiple injuries, initial encounter SNOMED: 10168924, [id number] (2) Fever ICD Codes: R50.9 - Fever, unspecified SNOMED: 765381951 Qualifiers: Qualified Codes: R50.9 - Fever, unspecified Steven Olmos Jun 08, 2018 15:59
[2018-06-08 16:00] VITALS: BP 110/68
[2018-06-08] MEDS ORDERED: HydrALAZINE 25mg tab GT PRN (17:00)
[2018-06-08] MEDS ORDERED: Sodium Phosphate 15 MM in NS 275 ML IVPB ONE (18:00)
--- NOTE | 2018-06-08 18:45 | Consultation ---
DATE OF CONSULTATION: 06/08/2018 INFECTIOUS DISEASES CONSULTATION PRIMARY ATTENDING PHYSICIAN: Pool Monson M.D. REASON FOR CONSULTATION: Fever, bacteremia. HISTORY OF PRESENT ILLNESS: This is an 83-year-old male, who is a alf resident admitted yesterday with fever, temperature 101 degrees. The patient has also acute renal failure, hyperglycemia with glucose of 435 at the time of admission. Blood cultures coming back gram-positive cocci. PAST MEDICAL HISTORY: Dementia, status post CVA, hypertension, diabetes mellitus, and dysphagia, status post G-tube placement. ALLERGIES: No known drug allergies. MEDICATIONS: Insulin, amlodipine, aspirin, Zosyn, nystatin, gabapentin, vancomycin per pharmacy, albuterol and ipratropium, hydralazine, heparin, Colace, and Prevacid. SOCIAL HISTORY: , alf resident, poor mental and functional status. No other history obtainable by the patient. PHYSICAL EXAMINATION: VITAL SIGNS: Temperature is 97.2 degrees, maximum temperature is 100.9 degrees, pulse 82, blood pressure is 142/79. GENERAL APPEARANCE: Seems to be well developed. HEAD AND NECK: Poor dentition. HEART: Normal rate. LUNGS: Clear. ABDOMEN: Soft. G-tube feeding. Nontender. EXTREMITIES: He has no edema. NEUROLOGIC: Unresponsive, aphasic. LABORATORY AND DIAGNOSTIC DATA: Sodium 138, potassium 4, chloride 98, bicarbonate 31, BUN 54, creatinine 0.9, and glucose 545. Troponin is elevated 0.085. Calcium is elevated at 10.2. CRP is elevated at 24.4. Albumin is 2.3. UA was negative. Chest x-ray showed atelectasis versus infiltrate. Blood culture growing gram-positive cocci. IMPRESSION: Fever, likely secondary to sepsis. The patient has bacteremia, acute renal failure, diabetes mellitus with hyperglycemia, hypertension, decreased albumin, and dementia. RECOMMENDATION: We will continue with vancomycin and Zosyn. We will follow up the cultures. We will order influenza A and B tests. At the end of my exam, I thank Dr. Monson for involving me in the care of this patient. Roc Devi M.D. DR: Alix JOB#: [id number] CC:
--- NOTE | 2018-06-08 19:35 | NUR ---
NURSE NOTES: Received patient in bed sleeping arousable to tactile stimuli and shaking. No respiratory distress noted. On oxygen 2L via nasal cannula. No facial grimacing noted. GT feeding in progress, no gastric residual noted. HOB elevated for aspiration precaution. IV line intact. Bed in lowest position and locked. Will continue to with plan of care.
[2018-06-08 20:00] VITALS: BP 128/73
--- NOTE | 2018-06-08 20:20 | NUR ---
NURSE NOTES: Dr Mac gave orders for pt to have levimere 20 units q12 hours, requested that Dr Suero be placed on consult. Dr also requested that I phone Dr Lo, to verify his orders. Wally Burns gave approval for Dr Mac orders. Dr Lo requested that I placed Akbar Maya for ID consult 2 to abnormal labs, swabs taken for influenza in the nares, taken to lab, Pt total care. Breathing with use of nasal canula . Gtube, pt gtube functioning and patent, plus two for repositioning. Dr Lo requested that Dr Galeano be placed on pt consults
--- NOTE | 2018-06-08 20:25 | NUR ---
HAND-OFF: Report given to .Trev GANNON
[2018-06-08] MEDS ORDERED: Vancomycin 1gm/D5W 275ml IVPB SCH ×2 (23:00)
[2018-06-09] VITALS: BP 124/69
[2018-06-09] MEDS: Albuterol/Ipratropium 3ml neb HHN SCH ×4 (01:00→20:09)
[2018-06-09 04:00] VITALS: BP 157/79
[2018-06-09] MEDS: Piperacillin/Tazobactam 3.375 GM in D5W 110 ML IVPB SCH ×3 (05:04→21:01)
[2018-06-09] MEDS: NovoLOG Insulin Flexpen SUBQ SCH ×4 (06:39→21:05)
[2018-06-09 07:01] LABS: BASOPHILS % (AUTO) 0.9 % (0.0-2.0); EOSINOPHILS % (AUTO) 2.7 % (0.0-3.0); HEMATOCRIT 34.8 % (42.0-52.0); HEMOGLOBIN 11.3 G/DL (14.2-18.0); LYMPHOCYTES % (AUTO) 17.7 % (20.0-45.0); MEAN CORPUSCULAR VOLUME 90 FL (80-99); MONOCYTES % (AUTO) 6.5 % (1.0-10.0); NEUTROPHILS % (AUTO) 72.2 % (45.0-75.0); PLATELET COUNT 195 K/UL (150-450); RED BLOOD COUNT 3.86 M/UL (4.70-6.10); RED CELL DISTRIBUTION WIDTH 13.8 % (11.6-14.8); WHITE BLOOD COUNT 7.4 K/UL (4.8-10.8)
[2018-06-09 07:32] LABS: ALANINE AMINOTRANSFERASE 27 U/L (12-78); ALBUMIN 2.2 G/DL (3.4-5.0); ALBUMIN/GLOBULIN RATIO 0.5 (1.0-2.7); ALKALINE PHOSPHATASE 95 U/L (46-116); ANION GAP 7 mmol/L (5-15); ASPARTATE AMINO TRANSFERASE 13 U/L (15-37); BILIRUBIN,TOTAL 0.4 MG/DL (0.2-1.0); BLOOD UREA NITROGEN 58 mg/dL (7-18); CALCIUM 10.8 MG/DL (8.5-10.1); CARBON DIOXIDE 32 MMOL/L (21-32); CHLORIDE 103 MMOL/L (98-107); CREATINE KINASE 26 U/L (26-308); CREATININE 1.8 MG/DL (0.55-1.30); GAMMA GLUTAMYL TRANSPEPTIDASE 33 U/L (5-85); PHOSPHORUS 2.4 MG/DL (2.5-4.9); POTASSIUM 4.3 MMOL/L (3.5-5.1); SODIUM 142 MMOL/L (136-145)
--- NOTE | 2018-06-09 07:35 | NUR ---
HAND-OFF: Report given to John Rouse RN.
--- NOTE | 2018-06-09 07:50 | NUR ---
NURSE NOTES: Received patient on bed, awake. IV site intact and patent, left hand IV leaking and removed. Gtube intact and patent. Holliday catheter intact and patent. Bed in low and locked position, call light in reach. No signs of respiratory distress or pain. Room board updated, will continue to monitor.
[2018-06-09 08:00] VITALS: BP 143/76
--- NOTE | 2018-06-09 08:45 | History and Physical Report ---
Covering for Dr. Remberto Joe. This is Dr. Remberto Joe's patient. HISTORY OF PRESENT ILLNESS: The patient is nonverbal. Comes because of fever of 101 with dyspnea, azotemia, pneumonia of the chest, severe hypercalcemia. Admitted to Med/Surg. Again, the patient is nonverbal, cannot get any history from the patient. PAST MEDICAL HISTORY: Organic brain syndrome, dementia, hypertension, constipation, NIDDM, hyperlipidemia, GERD. PAST SURGICAL HISTORY: PEG. ALLERGIES: No known allergies. MEDICATIONS: Amlodipine, fish oil, Lasix, gabapentin, insulin, multivitamin, vitamin C, Pravachol, polyethylene glycol, . SOCIAL HISTORY: Unable to obtain. REVIEW OF SYSTEMS: Unable to obtain. PHYSICAL EXAMINATION: VITAL SIGNS: Temperature is 100.9, pulse is 88, blood pressure 144/73. HEENT: PERRLA. CHEST: Clear to auscultation. History of possible pneumonia. CARDIOVASCULAR: Regular rate and rhythm. ABDOMEN: Soft. G-tube site is intact. No organomegaly. EXTREMITIES: No edema. NEUROLOGIC: Does not follow neurological exam. The patient is nonverbal. LABORATORY DATA: WBC of 9.8, hemoglobin 12.6, and platelets 190,000. Sodium 141, potassium of 4.8, BUN of 63, creatinine 1.7, glucose of 435, calcium of 11.5. ASSESSMENT AND PLAN: Fever, pneumonia, azotemia, hypercalcemia, and elevated blood sugar. I have asked Dr. Zuñiag, Dr. Kirkpatrick, Dr. Delgadillo, Dr. Devi to see the patient for the above-mentioned diagnoses and treatment. Pool Monson M.D. DR: MONICA JOB#: [id number] CC:
--- NOTE | 2018-06-09 08:54 | General Progress Note ---
Assessment/Plan Problem List: (1) Renal insufficiency ICD Codes: N28.9 - Disorder of kidney and ureter, unspecified SNOMED: 557232254, 521438676 (2) Diabetic nephropathy ICD Codes: E11.21 - Type 2 diabetes mellitus with diabetic nephropathy SNOMED: 861355830 (3) DM (diabetes mellitus) ICD Codes: E11.9 - Type 2 diabetes mellitus without complications SNOMED: 33501017 (4) Dementia ICD Codes: F03.90 - Unspecified dementia without behavioral disturbance SNOMED: 68002338 Assessment/Plan increase Levemir to 33 units bid continue NISS Subjective ROS Limited/Unobtainable: Yes Allergies: Coded Allergies: NO KNOWN DRUG ALLERGIES (Unverified Allergy, Unknown, 05/29/14) Subjective events noted glucose values are still elevated Item Value Date Time Bedside Blood Glucose 365 mg/dl H 06/09/18 0639 Bedside Blood Glucose 365 mg/dl H 06/08/18 2129 Bedside Blood Glucose 337 mg/dl H 06/08/18 1805 Bedside Blood Glucose 404 mg/dl H 06/08/18 1157 Glucose Level 545 MG/DL *H # 06/08/18 0710 Objective Last 24 Hour Vital Signs Date Time Temp Pulse Resp B/P (MAP) Pulse Ox O2 Delivery O2 Flow Rate FiO2 06/09/18 08:30 81 20 98 Nasal Cannula 2.0 28 06/09/18 08:24 82 22 98 Nasal Cannula 2.0 28 06/09/18 08:24 Nasal Cannula 2.0 28 06/09/18 08:24 98 Nasal Cannula 2.0 28 06/09/18 04:00 97.0 68 17 157/79 (105) 98 06/09/18 02:50 84 18 99 Nasal Cannula 2.0 28 06/09/18 02:05 88 20 95 Nasal Cannula 2.0 28 06/09/18 00:00 96.8 77 18 124/69 (87) 98 06/08/18 21:00 Nasal Cannula 2.0 06/08/18 20:00 96.7 93 18 128/73 (91) 95 06/08/18 19:04 98 Nasal Cannula 2.0 28 06/08/18 19:04 Nasal Cannula 2.0 28 06/08/18 19:01 84 20 98 Nasal Cannula 2.0 28 06/08/18 18:54 79 22 99 Nasal Cannula 2.0 28 06/08/18 16:00 97.3 86 18 110/68 (82) 98 06/08/18 13:27 82 21 99 Nasal Cannula 2.0 28 06/08/18 13:16 82 22 99 Nasal Cannula 2.0 28 06/08/18 12:00 97.2 81 16 142/79 (100) 95 06/08/18 09:32 68 128/78 06/08/18 09:00 Room Air Intake and Output 06/08/18 06/09/18 19:00 07:00 Intake Total 663.5 ml 1139 ml Output Total 600 ml Balance 63.5 ml 1139 ml Intake Free Water 450 ml IV Total 27.5 ml Tube Feeding 636 ml 689 ml Output Urine Total 600 ml # Bowel Movements 1 Laboratory Tests 06/08/18 19:40: C-Reactive Protein, Quantitative 11.3H, Random Vancomycin Level 12.6 06/09/18 06:10: White Blood Count 7.4, Red Blood Count 3.86L, Hemoglobin 11.3L, Hematocrit 34.8L , Mean Corpuscular Volume 90, Mean Corpuscular Hemoglobin 29.4, Mean Corpuscular Hemoglobin Concent 32.6, Red Cell Distribution Width 13.8, Platelet Count 195, Mean Platelet Volume 8.6, Neutrophils (%) (Auto) 72.2, Lymphocytes (% ) (Auto) 17.7L, Monocytes (%) (Auto) 6.5, Eosinophils (%) (Auto) 2.7, Basophils (%) (Auto) 0.9, Sodium Level 142, Potassium Level 4.3, Chloride Level 103, Carbon Dioxide Level 32, Anion Gap 7, Blood Urea Nitrogen 58H, Creatinine 1.8H, Estimat Glomerular Filtration Rate , Glucose Level 335#H, Uric Acid 6.1, Calcium Level 10.8H, Phosphorus Level 2.4L, Magnesium Level 2.6H, Total Bilirubin 0.4, Gamma Glutamyl Transpeptidase 33, Aspartate Amino Transf (AST/ SGOT) 13L, Alanine Aminotransferase (ALT/SGPT) 27, Alkaline Phosphatase 95, Total Creatine Kinase 26, Pro-B-Type Natriuretic Peptide 452H, Total Protein 6.9 , Albumin 2.2L, Globulin 4.7, Albumin/Globulin Ratio 0.5L Height (Feet): 5 Height (Inches): 7.00 Weight (Pounds): 169 Neck: normal alignment Cardiovascular: normal rate Respiratory/Chest: lungs clear Abdomen: normal bowel sounds Objective Current Medications Medications (Trade) Dose Ordered Sig/Dimas Route PRN Reason Start Time Stop Time Status Last Admin Dose Admin Albuterol/ Ipratropium (Albuterol/ Ipratropium) 3 ml Q6HRT HHN 06/07/18 21:30 06/12/18 21:29 06/09/18 08:23 Amlodipine Besylate (Norvasc) 2.5 mg DAILY GT 06/08/18 09:00 07/08/18 08:59 06/08/18 09:32 Aspirin (ASA) 81 mg DAILY GT 06/08/18 09:00 07/08/18 08:59 06/08/18 09:32 Dextrose (Dextrose 50%) 25 ml Q30M PRN IV Hypoglycemia 06/07/18 21:30 07/07/18 21:29 Dextrose (Dextrose 50%) 50 ml Q30M PRN IV Hypoglycemia 06/07/18 21:30 07/07/18 21:29 Docusate Sodium (Colace) 100 mg BID GT 06/07/18 18:00 07/07/18 17:59 06/08/18 18:02 Gabapentin (Neurontin) 300 mg THREE TIMES A DAY GT 06/07/18 23:00 07/07/18 22:59 06/08/18 18:02 Heparin Sodium (Porcine) (Heparin 5000 units/ml) 5,000 units EVERY 12 HOURS SUBQ 06/07/18 21:00 07/07/18 20:59 06/08/18 21:27 Hydralazine HCl (Apresoline) 25 mg Q4H PRN GT SBP > 180mmHg 06/08/18 17:00 07/07/18 21:29 Insulin Aspart (NovoLOG) BEFORE MEALS AND HS SUBQ 06/07/18 22:00 07/07/18 21:59 06/09/18 06:39 Insulin Detemir (Levemir) 20 units EVERY 12 HOURS SUBQ 06/08/18 09:30 07/08/18 09:29 06/08/18 21:28 Lansoprazole (Prevacid) 30 mg BID GT 06/07/18 18:00 07/07/18 17:59 06/08/18 18:02 Nystatin (Nystatin) 5 ml BID GT 06/08/18 09:00 06/15/18 08:59 06/08/18 18:02 Piperacillin Sod/ Tazobactam Sod 3.375 gm/Dextrose 110 ml @ 27.5 mls/hr Q8HR IVPB 06/08/18 01:00 06/15/18 00:59 06/09/18 05:04 Sodium Chloride 1,000 ml @ 75 mls/hr [id number] IV 06/08/18 17:00 07/08/18 16:59 06/08/18 18:03 Vancomycin HCl (Vanco rx to dose) 1 ea DAILY PRN MISC Per rx protocol 06/07/18 21:45 07/07/18 21:44 Cristiano Zuñiga MD Jun 09, 2018 08:54
[2018-06-09] MEDS: Nystatin Susp 500,000 units/5ml GT SCH ×2 (09:09→18:13)
[2018-06-09] MEDS: Docusate 100mg/10ml Liq GT SCH ×3 (09:09→18:12)
[2018-06-09] MEDS: Gabapentin 300 MG/6 ML Soln GT SCH ×3 (09:09→18:12)
[2018-06-09] MEDS: Aspirin Baby 81mg GT SCH (09:09)
[2018-06-09] MEDS: Levemir Flexpen SUBQ SCH ×2 (09:10→21:04)
[2018-06-09] MEDS: Heparin 5000 units/ml inj SUBQ SCH ×2 (09:11→21:04)
[2018-06-09] MEDS ORDERED: Phospha 250 Neutral tab GT SCH (10:15)
--- NOTE | 2018-06-09 11:40 | Infectious Diseases Prog Note ---
Assessment/Plan Assessment/Plan antibiotics : vancomycin iv, zosyn A 1. fever improving 2. + blood cultures with coag neg staph likely contaminated 3. renal failure improving 4. hyperglycemia P 1. continue iv vancomycin, zosyn 2. will follow up cultures Subjective ROS Limited/Unobtainable: Yes Allergies: Coded Allergies: NO KNOWN DRUG ALLERGIES (Unverified Allergy, Unknown, 05/29/14) Objective Vital Signs Last 24 Hour Vital Signs Date Time Temp Pulse Resp B/P (MAP) Pulse Ox O2 Delivery O2 Flow Rate FiO2 06/09/18 09:10 81 143/76 06/09/18 09:00 Nasal Cannula 2.0 06/09/18 08:30 81 20 98 Nasal Cannula 2.0 28 06/09/18 08:24 82 22 98 Nasal Cannula 2.0 28 06/09/18 08:24 Nasal Cannula 2.0 28 06/09/18 08:24 98 Nasal Cannula 2.0 28 06/09/18 08:00 97.9 84 20 143/76 (98) 100 06/09/18 04:00 97.0 68 17 157/79 (105) 98 06/09/18 02:50 84 18 99 Nasal Cannula 2.0 28 06/09/18 02:05 88 20 95 Nasal Cannula 2.0 28 06/09/18 00:00 96.8 77 18 124/69 (87) 98 06/08/18 21:00 Nasal Cannula 2.0 06/08/18 20:00 96.7 93 18 128/73 (91) 95 06/08/18 19:04 98 Nasal Cannula 2.0 28 06/08/18 19:04 Nasal Cannula 2.0 28 06/08/18 19:01 84 20 98 Nasal Cannula 2.0 28 06/08/18 18:54 79 22 99 Nasal Cannula 2.0 28 06/08/18 16:00 97.3 86 18 110/68 (82) 98 06/08/18 13:27 82 21 99 Nasal Cannula 2.0 28 06/08/18 13:16 82 22 99 Nasal Cannula 2.0 28 06/08/18 12:00 97.2 81 16 142/79 (100) 95 Height (Feet): 5 Height (Inches): 7.00 Weight (Pounds): 169 Respiratory/Chest: lungs clear Cardiovascular: normal rate, regular rhythm, no gallop/murmur Abdomen: soft, non tender, other - GT Extremities: no edema Microbiology Date/Time Source Procedure Growth Status 06/07/18 12:50 Blood Blood Culture - Preliminary NO GROWTH AFTER 24 HOURS Resulted 06/07/18 12:45 Blood Blood Culture - Preliminary Staphylococcus Sp Coag Neg Resulted 06/08/18 17:16 Nasal Nares Influenza Types A,B Antigen (JETHRO) - Final Complete 06/07/18 13:40 Nasal Nares MRSA Culture - Final NO METHICILLIN RESISTANT STAPH AUREUS... Complete 06/07/18 13:40 Rectum VRE Culture - Final Enterococcus Faecalis - Vre Resulted 06/07/18 13:40 Rectum Pending Resulted Laboratory Tests Test 06/08/18 19:40 06/09/18 06:10 C-Reactive Protein, Quantitative 11.3 mg/dL (0.00-0.90) H Random Vancomycin Level 12.6 ug/mL White Blood Count 7.4 K/UL (4.8-10.8) Red Blood Count 3.86 M/UL (4.70-6.10) L Hemoglobin 11.3 G/DL (14.2-18.0) L Hematocrit 34.8 % (42.0-52.0) L Mean Corpuscular Volume 90 FL (80-99) Mean Corpuscular Hemoglobin 29.4 PG (27.0-31.0) Mean Corpuscular Hemoglobin Concent 32.6 G/DL (32.0-36.0) Red Cell Distribution Width 13.8 % (11.6-14.8) Platelet Count 195 K/UL (150-450) Mean Platelet Volume 8.6 FL (6.5-10.1) Neutrophils (%) (Auto) 72.2 % (45.0-75.0) Lymphocytes (%) (Auto) 17.7 % (20.0-45.0) L Monocytes (%) (Auto) 6.5 % (1.0-10.0) Eosinophils (%) (Auto) 2.7 % (0.0-3.0) Basophils (%) (Auto) 0.9 % (0.0-2.0) Sodium Level 142 MMOL/L (136-145) Potassium Level 4.3 MMOL/L (3.5-5.1) Chloride Level 103 MMOL/L (98-107) Carbon Dioxide Level 32 MMOL/L (21-32) Anion Gap 7 mmol/L (5-15) Blood Urea Nitrogen 58 mg/dL (7-18) H Creatinine 1.8 MG/DL (0.55-1.30) H Estimat Glomerular Filtration Rate mL/min (>60) Glucose Level 335 MG/DL (74-106) #H Uric Acid 6.1 MG/DL (2.6-7.2) Calcium Level 10.8 MG/DL (8.5-10.1) H Calcium (Send out) Pending Phosphorus Level 2.4 MG/DL (2.5-4.9) L Magnesium Level 2.6 MG/DL (1.8-2.4) H Total Bilirubin 0.4 MG/DL (0.2-1.0) Gamma Glutamyl Transpeptidase 33 U/L (5-85) Aspartate Amino Transf (AST/SGOT) 13 U/L (15-37) L Alanine Aminotransferase (ALT/SGPT) 27 U/L (12-78) Alkaline Phosphatase 95 U/L (46-116) Total Creatine Kinase 26 U/L (26-308) Pro-B-Type Natriuretic Peptide 452 pg/mL (0-125) H Total Protein 6.9 G/DL (6.4-8.2) Albumin 2.2 G/DL (3.4-5.0) L Globulin 4.7 g/dL Albumin/Globulin Ratio 0.5 (1.0-2.7) L Vitamin D 25-Hydroxy Pending 25-Hydroxy Vitamin D2 Pending 25-Hydroxy Vitamin D3 Pending Parathyroid Hormone (Intact) Pending Current Medications Medications (Trade) Dose Ordered Sig/Dimas Route PRN Reason Start Time Stop Time Status Last Admin Dose Admin Albuterol/ Ipratropium (Albuterol/ Ipratropium) 3 ml Q6HRT HHN 06/07/18 21:30 06/12/18 21:29 06/09/18 08:23 Amlodipine Besylate (Norvasc) 2.5 mg DAILY GT 06/08/18 09:00 07/08/18 08:59 06/09/18 09:10 Aspirin (ASA) 81 mg DAILY GT 06/08/18 09:00 07/08/18 08:59 06/09/18 09:09 Dextrose (Dextrose 50%) 25 ml Q30M PRN IV Hypoglycemia 06/07/18 21:30 07/07/18 21:29 Dextrose (Dextrose 50%) 50 ml Q30M PRN IV Hypoglycemia 06/07/18 21:30 07/07/18 21:29 Docusate Sodium (Colace) 100 mg BID GT 06/07/18 18:00 07/07/18 17:59 06/09/18 09:09 Gabapentin (Neurontin) 300 mg THREE TIMES A DAY GT 06/07/18 23:00 07/07/18 22:59 06/09/18 09:09 Heparin Sodium (Porcine) (Heparin 5000 units/ml) 5,000 units EVERY 12 HOURS SUBQ 06/07/18 21:00 07/07/18 20:59 06/09/18 09:11 Hydralazine HCl (Apresoline) 25 mg Q4H PRN GT SBP > 180mmHg 06/08/18 17:00 07/07/18 21:29 Insulin Aspart (NovoLOG) BEFORE MEALS AND HS SUBQ 06/07/18 22:00 07/07/18 21:59 06/09/18 06:39 Insulin Detemir (Levemir) 33 units EVERY 12 HOURS SUBQ 06/09/18 09:00 07/08/18 09:29 06/09/18 09:10 Lansoprazole (Prevacid) 30 mg BID GT 06/07/18 18:00 07/07/18 17:59 06/09/18 09:09 Nystatin (Nystatin) 5 ml BID GT 06/08/18 09:00 06/15/18 08:59 06/09/18 09:09 Pamidronate Disodium 60 mg/ Sodium Chloride 550 ml @ 137.5 mls/ hr ONCE ONCE IVPB 06/09/18 12:00 06/09/18 15:59 06/09/18 11:37 Phosphorus (Phospha 250 Neutral) 500 mg ONCE GT 06/09/18 10:15 06/09/18 12:00 Piperacillin Sod/ Tazobactam Sod 3.375 gm/Dextrose 110 ml @ 27.5 mls/hr Q8HR IVPB 06/08/18 01:00 06/15/18 00:59 06/09/18 05:04 Sodium Chloride 1,000 ml @ 75 mls/hr [id number] IV 06/08/18 17:00 07/08/18 16:59 06/08/18 18:03 Vancomycin HCl (Vanco rx to dose) 1 ea DAILY PRN MISC Per rx protocol 06/07/18 21:45 07/07/18 21:44 Omari Zuleta MD Jun 09, 2018 11:40
[2018-06-09 12:00] VITALS: BP 144/78
[2018-06-09] MEDS ORDERED: Pamidronate Disodium Inj 60 MG in Sodium Chloride 550 ML IVPB ONE (12:00)
--- NOTE | 2018-06-09 12:05 | Nephrology Progress Note ---
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 DM OOC Diabetic Nephropathy Proteinuria and HypoAlbuminemia High Ca likely dehydration Plan trial of Aredia Hydrate Antibiotics Per ID Monitor renal parameters Urine studies adjust electrolytes Subjective ROS Limited/Unobtainable: No Constitutional: Reports: malaise Objective Objective Last 24 Hour Vital Signs Date Time Temp Pulse Resp B/P (MAP) Pulse Ox O2 Delivery O2 Flow Rate FiO2 06/09/18 09:10 81 143/76 06/09/18 09:00 Nasal Cannula 2.0 06/09/18 08:30 81 20 98 Nasal Cannula 2.0 28 06/09/18 08:24 82 22 98 Nasal Cannula 2.0 28 06/09/18 08:24 Nasal Cannula 2.0 28 06/09/18 08:24 98 Nasal Cannula 2.0 28 06/09/18 08:00 97.9 84 20 143/76 (98) 100 06/09/18 04:00 97.0 68 17 157/79 (105) 98 06/09/18 02:50 84 18 99 Nasal Cannula 2.0 28 06/09/18 02:05 88 20 95 Nasal Cannula 2.0 28 06/09/18 00:00 96.8 77 18 124/69 (87) 98 06/08/18 21:00 Nasal Cannula 2.0 06/08/18 20:00 96.7 93 18 128/73 (91) 95 06/08/18 19:04 98 Nasal Cannula 2.0 28 06/08/18 19:04 Nasal Cannula 2.0 28 06/08/18 19:01 84 20 98 Nasal Cannula 2.0 28 06/08/18 18:54 79 22 99 Nasal Cannula 2.0 28 06/08/18 16:00 97.3 86 18 110/68 (82) 98 06/08/18 13:27 82 21 99 Nasal Cannula 2.0 28 06/08/18 13:16 82 22 99 Nasal Cannula 2.0 28 Intake and Output 06/08/18 06/09/18 19:00 07:00 Intake Total 663.5 ml 1139 ml Output Total 600 ml Balance 63.5 ml 1139 ml Intake Free Water 450 ml IV Total 27.5 ml Tube Feeding 636 ml 689 ml Output Urine Total 600 ml # Bowel Movements 1 Laboratory Tests 06/08/18 19:40: C-Reactive Protein, Quantitative 11.3H, Random Vancomycin Level 12.6 06/09/18 06:10: White Blood Count 7.4, Red Blood Count 3.86L, Hemoglobin 11.3L, Hematocrit 34.8L , Mean Corpuscular Volume 90, Mean Corpuscular Hemoglobin 29.4, Mean Corpuscular Hemoglobin Concent 32.6, Red Cell Distribution Width 13.8, Platelet Count 195, Mean Platelet Volume 8.6, Neutrophils (%) (Auto) 72.2, Lymphocytes (% ) (Auto) 17.7L, Monocytes (%) (Auto) 6.5, Eosinophils (%) (Auto) 2.7, Basophils (%) (Auto) 0.9, Sodium Level 142, Potassium Level 4.3, Chloride Level 103, Carbon Dioxide Level 32, Anion Gap 7, Blood Urea Nitrogen 58H, Creatinine 1.8H, Estimat Glomerular Filtration Rate , Glucose Level 335#H, Uric Acid 6.1, Calcium Level 10.8H, Calcium (Send out) [Pending], Phosphorus Level 2.4L, Magnesium Level 2.6H, Total Bilirubin 0.4, Gamma Glutamyl Transpeptidase 33, Aspartate Amino Transf (AST/SGOT) 13L, Alanine Aminotransferase (ALT/SGPT) 27, Alkaline Phosphatase 95, Total Creatine Kinase 26, Pro-B-Type Natriuretic Peptide 452H, Total Protein 6.9, Albumin 2.2L, Globulin 4.7, Albumin/Globulin Ratio 0.5L, Vitamin D 25-Hydroxy [Pending], 25-Hydroxy Vitamin D2 [Pending], 25- Hydroxy Vitamin D3 [Pending], Parathyroid Hormone (Intact) [Pending] Height (Feet): 5 Height (Inches): 7.00 Weight (Pounds): 169 General Appearance: no apparent distress Cardiovascular: tachycardia Respiratory/Chest: decreased breath sounds Abdomen: soft Hansel Kirkpatrick MD Jun 09, 2018 12:05
--- NOTE | 2018-06-09 13:14 | Pulmonology Progress Note ---
Assessment/Plan Problems: (1) Sepsis (2) Renal failure (ARF), acute on chronic (3) Diabetes (4) Dementia (5) Diabetic nephropathy (6) Feeding by G-tube (7) History of CVA (cerebrovascular accident) Assessment/Plan IV fluids iv abx check cultures symptomatic treatment Subjective ROS Limited/Unobtainable: No Allergies: Coded Allergies: NO KNOWN DRUG ALLERGIES (Unverified Allergy, Unknown, 05/29/14) Objective Last 24 Hour Vital Signs Date Time Temp Pulse Resp B/P (MAP) Pulse Ox O2 Delivery O2 Flow Rate FiO2 06/09/18 09:10 81 143/76 06/09/18 09:00 Nasal Cannula 2.0 06/09/18 08:30 81 20 98 Nasal Cannula 2.0 28 06/09/18 08:24 82 22 98 Nasal Cannula 2.0 28 06/09/18 08:24 Nasal Cannula 2.0 28 06/09/18 08:24 98 Nasal Cannula 2.0 28 06/09/18 08:00 97.9 84 20 143/76 (98) 100 06/09/18 04:00 97.0 68 17 157/79 (105) 98 06/09/18 02:50 84 18 99 Nasal Cannula 2.0 28 06/09/18 02:05 88 20 95 Nasal Cannula 2.0 28 06/09/18 00:00 96.8 77 18 124/69 (87) 98 06/08/18 21:00 Nasal Cannula 2.0 06/08/18 20:00 96.7 93 18 128/73 (91) 95 06/08/18 19:04 98 Nasal Cannula 2.0 28 06/08/18 19:04 Nasal Cannula 2.0 28 06/08/18 19:01 84 20 98 Nasal Cannula 2.0 28 06/08/18 18:54 79 22 99 Nasal Cannula 2.0 28 06/08/18 16:00 97.3 86 18 110/68 (82) 98 06/08/18 13:27 82 21 99 Nasal Cannula 2.0 28 06/08/18 13:16 82 22 99 Nasal Cannula 2.0 28 Intake and Output 06/08/18 06/09/18 19:00 07:00 Intake Total 663.5 ml 1139 ml Output Total 600 ml Balance 63.5 ml 1139 ml Intake Free Water 450 ml IV Total 27.5 ml Tube Feeding 636 ml 689 ml Output Urine Total 600 ml # Bowel Movements 1 Objective General Appearance: WD/WN, no apparent distress Lines, tubes and drains: peripheral HEENT: normocephalic, atraumatic Neck: non-tender, normal alignment Respiratory/Chest: chest wall non-tender, lungs clear Cardiovascular/Chest: normal peripheral pulses, normal rate Abdomen: normal bowel sounds Extremities: normal range of motion Skin Exam: normal pigmentation Neurologic: rn midwife II-XII grossly normal Microbiology Date/Time Source Procedure Growth Status 06/07/18 12:50 Blood Blood Culture - Preliminary NO GROWTH AFTER 24 HOURS Resulted 06/07/18 12:45 Blood Blood Culture - Preliminary Staphylococcus Sp Coag Neg Resulted 06/08/18 17:16 Nasal Nares Influenza Types A,B Antigen (JETHRO) - Final Complete 06/07/18 13:40 Nasal Nares MRSA Culture - Final NO METHICILLIN RESISTANT STAPH AUREUS... Complete 06/07/18 13:40 Rectum VRE Culture - Final Enterococcus Faecalis - Vre Resulted 06/07/18 13:40 Rectum Pending Resulted Laboratory Tests 06/08/18 19:40: C-Reactive Protein, Quantitative 11.3H, Random Vancomycin Level 12.6 06/09/18 06:10: White Blood Count 7.4, Red Blood Count 3.86L, Hemoglobin 11.3L, Hematocrit 34.8L , Mean Corpuscular Volume 90, Mean Corpuscular Hemoglobin 29.4, Mean Corpuscular Hemoglobin Concent 32.6, Red Cell Distribution Width 13.8, Platelet Count 195, Mean Platelet Volume 8.6, Neutrophils (%) (Auto) 72.2, Lymphocytes (% ) (Auto) 17.7L, Monocytes (%) (Auto) 6.5, Eosinophils (%) (Auto) 2.7, Basophils (%) (Auto) 0.9, Sodium Level 142, Potassium Level 4.3, Chloride Level 103, Carbon Dioxide Level 32, Anion Gap 7, Blood Urea Nitrogen 58H, Creatinine 1.8H, Estimat Glomerular Filtration Rate , Glucose Level 335#H, Uric Acid 6.1, Calcium Level 10.8H, Calcium (Send out) [Pending], Phosphorus Level 2.4L, Magnesium Level 2.6H, Total Bilirubin 0.4, Gamma Glutamyl Transpeptidase 33, Aspartate Amino Transf (AST/SGOT) 13L, Alanine Aminotransferase (ALT/SGPT) 27, Alkaline Phosphatase 95, Total Creatine Kinase 26, Pro-B-Type Natriuretic Peptide 452H, Total Protein 6.9, Albumin 2.2L, Globulin 4.7, Albumin/Globulin Ratio 0.5L, Vitamin D 25-Hydroxy [Pending], 25-Hydroxy Vitamin D2 [Pending], 25- Hydroxy Vitamin D3 [Pending], Parathyroid Hormone (Intact) [Pending] Current Medications Medications (Trade) Dose Ordered Sig/Dimas Route PRN Reason Start Time Stop Time Status Last Admin Dose Admin Albuterol/ Ipratropium (Albuterol/ Ipratropium) 3 ml Q6HRT HHN 06/07/18 21:30 06/12/18 21:29 06/09/18 08:23 Amlodipine Besylate (Norvasc) 2.5 mg DAILY GT 06/08/18 09:00 07/08/18 08:59 06/09/18 09:10 Aspirin (ASA) 81 mg DAILY GT 06/08/18 09:00 07/08/18 08:59 06/09/18 09:09 Dextrose (Dextrose 50%) 25 ml Q30M PRN IV Hypoglycemia 06/07/18 21:30 07/07/18 21:29 Dextrose (Dextrose 50%) 50 ml Q30M PRN IV Hypoglycemia 06/07/18 21:30 07/07/18 21:29 Docusate Sodium (Colace) 100 mg TID GT 06/09/18 13:00 07/07/18 17:59 06/09/18 12:50 Gabapentin (Neurontin) 300 mg THREE TIMES A DAY GT 06/07/18 23:00 07/07/18 22:59 06/09/18 12:50 Heparin Sodium (Porcine) (Heparin 5000 units/ml) 5,000 units EVERY 12 HOURS SUBQ 06/07/18 21:00 07/07/18 20:59 06/09/18 09:11 Hydralazine HCl (Apresoline) 25 mg Q4H PRN GT SBP > 180mmHg 06/08/18 17:00 07/07/18 21:29 Insulin Aspart (NovoLOG) BEFORE MEALS AND HS SUBQ 06/07/18 22:00 07/07/18 21:59 06/09/18 12:51 Insulin Detemir (Levemir) 33 units EVERY 12 HOURS SUBQ 06/09/18 09:00 07/08/18 09:29 06/09/18 09:10 Lansoprazole (Prevacid) 30 mg BID GT 06/07/18 18:00 07/07/18 17:59 06/09/18 09:09 Nystatin (Nystatin) 5 ml BID GT 06/08/18 09:00 06/15/18 08:59 06/09/18 09:09 Pamidronate Disodium 60 mg/ Sodium Chloride 550 ml @ 137.5 mls/ hr ONCE ONCE IVPB 06/09/18 12:00 06/09/18 15:59 06/09/18 11:37 Piperacillin Sod/ Tazobactam Sod 3.375 gm/Dextrose 110 ml @ 27.5 mls/hr Q8HR IVPB 06/08/18 01:00 06/15/18 00:59 06/09/18 05:04 Sodium Chloride 1,000 ml @ 75 mls/hr [id number] IV 06/08/18 17:00 07/08/18 16:59 06/08/18 18:03 Vancomycin HCl (Vanco rx to dose) 1 ea DAILY PRN MISC Per rx protocol 06/07/18 21:45 07/07/18 21:44 Wang Guzman MD Jun 09, 2018 13:14
--- NOTE | 2018-06-09 13:34 | NUR ---
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 *Altered nutrition related lab values R/T DM, clinical condition as evidenced by elev BGs (545-> 335), A1C=8.3, uglu 4+ on adm. * Increased kcal and protein needs r/t wound healing as evidenced by buttock full thickness wound. CURRENT TF:Glucerna 1.2 @ 53ml/hr x 20hrs ENTERAL NUTRITION RECOMMENDATIONS: Glucerna 1.5 @ 56ml/hr x 20 hrs to provide 1120ml, 1680kcal, 93g prot, 850ml free water * INCREASE current TF rate to goal of 56ml/hr x20 hrs to better meet est needs. * HOB over 30 degrees/ water flush per MD. ADDITIONAL RECOMMENDATIONS: * Re-calibrated bedscale wt * WOUND CARE: SUSIE BID + VIT C 250mg daily * Monitor lytes, replete as needed. * Consider long acting insulin for improved glycemic control. .
--- NOTE | 2018-06-09 15:05 | General Progress Note ---
Assessment/Plan Problem List: (1) UTI (urinary tract infection) ICD Codes: N39.0 - Urinary tract infection, site not specified SNOMED: 72710073 (2) Dementia ICD Codes: F03.90 - Unspecified dementia without behavioral disturbance SNOMED: 28752214 (3) ATN (acute tubular necrosis) ICD Codes: N17.0 - Acute kidney failure with tubular necrosis SNOMED: 52423179 (4) History of CVA (cerebrovascular accident) ICD Codes: Z86.73 - Personal history of transient ischemic attack (TIA), and cerebral infarction without residual deficits SNOMED: 520545278 (5) Diabetes ICD Codes: E11.9 - Type 2 diabetes mellitus without complications SNOMED: 73413590 (6) HTN (hypertension) ICD Codes: I10 - Essential (primary) hypertension SNOMED: 01255145 (7) CHF (congestive heart failure) ICD Codes: I50.9 - Heart failure, unspecified SNOMED: 81243464 (8) Elevated troponin level ICD Codes: R74.8 - Abnormal levels of other serum enzymes SNOMED: 437779951, 600168075, 442503389 (9) Sepsis ICD Codes: A41.9 - Sepsis SNOMED: 22251311 Status: progressing Assessment/Plan chf elevated trop occasional wheezing on nebs reviewed chart and labs Subjective ROS Limited/Unobtainable: Yes Allergies: Coded Allergies: NO KNOWN DRUG ALLERGIES (Unverified Allergy, Unknown, 05/29/14) Objective Last 24 Hour Vital Signs Date Time Temp Pulse Resp B/P (MAP) Pulse Ox O2 Delivery O2 Flow Rate FiO2 06/09/18 13:50 89 20 98 Nasal Cannula 2.0 28 06/09/18 13:40 96 20 98 Nasal Cannula 2.0 28 06/09/18 12:00 98.1 80 18 144/78 (100) 96 06/09/18 09:10 81 143/76 06/09/18 09:00 Nasal Cannula 2.0 06/09/18 08:30 81 20 98 Nasal Cannula 2.0 28 06/09/18 08:24 82 22 98 Nasal Cannula 2.0 28 06/09/18 08:24 Nasal Cannula 2.0 28 06/09/18 08:24 98 Nasal Cannula 2.0 28 06/09/18 08:00 97.9 84 20 143/76 (98) 100 06/09/18 04:00 97.0 68 17 157/79 (105) 98 06/09/18 02:50 84 18 99 Nasal Cannula 2.0 28 06/09/18 02:05 88 20 95 Nasal Cannula 2.0 28 06/09/18 00:00 96.8 77 18 124/69 (87) 98 06/08/18 21:00 Nasal Cannula 2.0 06/08/18 20:00 96.7 93 18 128/73 (91) 95 06/08/18 19:04 98 Nasal Cannula 2.0 28 06/08/18 19:04 Nasal Cannula 2.0 28 06/08/18 19:01 84 20 98 Nasal Cannula 2.0 28 06/08/18 18:54 79 22 99 Nasal Cannula 2.0 28 06/08/18 16:00 97.3 86 18 110/68 (82) 98 Intake and Output 06/08/18 06/09/18 18:59 06:59 Intake Total 663.5 ml 1089 ml Output Total 600 ml Balance 63.5 ml 1089 ml Intake Free Water 400 ml IV Total 27.5 ml Tube Feeding 636 ml 689 ml Output Urine Total 600 ml # Bowel Movements 1 Laboratory Tests 06/08/18 19:40: C-Reactive Protein, Quantitative 11.3H, Random Vancomycin Level 12.6 06/09/18 06:10: White Blood Count 7.4, Red Blood Count 3.86L, Hemoglobin 11.3L, Hematocrit 34.8L , Mean Corpuscular Volume 90, Mean Corpuscular Hemoglobin 29.4, Mean Corpuscular Hemoglobin Concent 32.6, Red Cell Distribution Width 13.8, Platelet Count 195, Mean Platelet Volume 8.6, Neutrophils (%) (Auto) 72.2, Lymphocytes (% ) (Auto) 17.7L, Monocytes (%) (Auto) 6.5, Eosinophils (%) (Auto) 2.7, Basophils (%) (Auto) 0.9, Sodium Level 142, Potassium Level 4.3, Chloride Level 103, Carbon Dioxide Level 32, Anion Gap 7, Blood Urea Nitrogen 58H, Creatinine 1.8H, Estimat Glomerular Filtration Rate , Glucose Level 335#H, Uric Acid 6.1, Calcium Level 10.8H, Calcium (Send out) [Pending], Phosphorus Level 2.4L, Magnesium Level 2.6H, Total Bilirubin 0.4, Gamma Glutamyl Transpeptidase 33, Aspartate Amino Transf (AST/SGOT) 13L, Alanine Aminotransferase (ALT/SGPT) 27, Alkaline Phosphatase 95, Total Creatine Kinase 26, Pro-B-Type Natriuretic Peptide 452H, Total Protein 6.9, Albumin 2.2L, Globulin 4.7, Albumin/Globulin Ratio 0.5L, Vitamin D 25-Hydroxy [Pending], 25-Hydroxy Vitamin D2 [Pending], 25- Hydroxy Vitamin D3 [Pending], Parathyroid Hormone (Intact) [Pending] Height (Feet): 5 Height (Inches): 7.00 Weight (Pounds): 169 Neck: supple Cardiovascular: normal rate Respiratory/Chest: lungs clear Pool Monson MD Jun 09, 2018 15:05
--- NOTE | 2018-06-09 15:09 | Cardiac Electrophysiology PN ---
Subjective Subjective [id number] Objective Last 24 Hour Vital Signs Date Time Temp Pulse Resp B/P (MAP) Pulse Ox O2 Delivery O2 Flow Rate FiO2 06/09/18 13:50 89 20 98 Nasal Cannula 2.0 28 06/09/18 13:40 96 20 98 Nasal Cannula 2.0 28 06/09/18 12:00 98.1 80 18 144/78 (100) 96 06/09/18 09:10 81 143/76 06/09/18 09:00 Nasal Cannula 2.0 06/09/18 08:30 81 20 98 Nasal Cannula 2.0 28 06/09/18 08:24 82 22 98 Nasal Cannula 2.0 28 06/09/18 08:24 Nasal Cannula 2.0 28 06/09/18 08:24 98 Nasal Cannula 2.0 28 06/09/18 08:00 97.9 84 20 143/76 (98) 100 06/09/18 04:00 97.0 68 17 157/79 (105) 98 06/09/18 02:50 84 18 99 Nasal Cannula 2.0 28 06/09/18 02:05 88 20 95 Nasal Cannula 2.0 28 06/09/18 00:00 96.8 77 18 124/69 (87) 98 06/08/18 21:00 Nasal Cannula 2.0 06/08/18 20:00 96.7 93 18 128/73 (91) 95 06/08/18 19:04 98 Nasal Cannula 2.0 28 06/08/18 19:04 Nasal Cannula 2.0 28 06/08/18 19:01 84 20 98 Nasal Cannula 2.0 28 06/08/18 18:54 79 22 99 Nasal Cannula 2.0 28 06/08/18 16:00 97.3 86 18 110/68 (82) 98 Intake and Output 06/08/18 06/09/18 19:00 07:00 Intake Total 663.5 ml 1139 ml Output Total 600 ml Balance 63.5 ml 1139 ml Intake Free Water 450 ml IV Total 27.5 ml Tube Feeding 636 ml 689 ml Output Urine Total 600 ml # Bowel Movements 1 Laboratory Tests Test 06/08/18 19:40 06/09/18 06:10 C-Reactive Protein, Quantitative 11.3 mg/dL (0.00-0.90) H Random Vancomycin Level 12.6 ug/mL White Blood Count 7.4 K/UL (4.8-10.8) Red Blood Count 3.86 M/UL (4.70-6.10) L Hemoglobin 11.3 G/DL (14.2-18.0) L Hematocrit 34.8 % (42.0-52.0) L Mean Corpuscular Volume 90 FL (80-99) Mean Corpuscular Hemoglobin 29.4 PG (27.0-31.0) Mean Corpuscular Hemoglobin Concent 32.6 G/DL (32.0-36.0) Red Cell Distribution Width 13.8 % (11.6-14.8) Platelet Count 195 K/UL (150-450) Mean Platelet Volume 8.6 FL (6.5-10.1) Neutrophils (%) (Auto) 72.2 % (45.0-75.0) Lymphocytes (%) (Auto) 17.7 % (20.0-45.0) L Monocytes (%) (Auto) 6.5 % (1.0-10.0) Eosinophils (%) (Auto) 2.7 % (0.0-3.0) Basophils (%) (Auto) 0.9 % (0.0-2.0) Sodium Level 142 MMOL/L (136-145) Potassium Level 4.3 MMOL/L (3.5-5.1) Chloride Level 103 MMOL/L (98-107) Carbon Dioxide Level 32 MMOL/L (21-32) Anion Gap 7 mmol/L (5-15) Blood Urea Nitrogen 58 mg/dL (7-18) H Creatinine 1.8 MG/DL (0.55-1.30) H Estimat Glomerular Filtration Rate mL/min (>60) Glucose Level 335 MG/DL (74-106) #H Uric Acid 6.1 MG/DL (2.6-7.2) Calcium Level 10.8 MG/DL (8.5-10.1) H Calcium (Send out) Pending Phosphorus Level 2.4 MG/DL (2.5-4.9) L Magnesium Level 2.6 MG/DL (1.8-2.4) H Total Bilirubin 0.4 MG/DL (0.2-1.0) Gamma Glutamyl Transpeptidase 33 U/L (5-85) Aspartate Amino Transf (AST/SGOT) 13 U/L (15-37) L Alanine Aminotransferase (ALT/SGPT) 27 U/L (12-78) Alkaline Phosphatase 95 U/L (46-116) Total Creatine Kinase 26 U/L (26-308) Pro-B-Type Natriuretic Peptide 452 pg/mL (0-125) H Total Protein 6.9 G/DL (6.4-8.2) Albumin 2.2 G/DL (3.4-5.0) L Globulin 4.7 g/dL Albumin/Globulin Ratio 0.5 (1.0-2.7) L Vitamin D 25-Hydroxy Pending 25-Hydroxy Vitamin D2 Pending 25-Hydroxy Vitamin D3 Pending Parathyroid Hormone (Intact) Pending Microbiology Date/Time Source Procedure Growth Status 06/07/18 12:50 Blood Blood Culture - Preliminary NO GROWTH AFTER 24 HOURS Resulted 06/07/18 12:45 Blood Blood Culture - Preliminary Staphylococcus Sp Coag Neg Resulted 06/08/18 17:16 Nasal Nares Influenza Types A,B Antigen (JETHRO) - Final Complete 06/07/18 13:40 Nasal Nares MRSA Culture - Final NO METHICILLIN RESISTANT STAPH AUREUS... Complete 06/07/18 13:40 Rectum VRE Culture - Final Enterococcus Faecalis - Vre Resulted 06/07/18 13:40 Rectum Pending Resulted Gold Birmingham MD Jun 09, 2018 15:09
--- NOTE | 2018-06-09 15:24 | NUR ---
NURSE NOTES:WOUND CARE NOTES:Pt presents with multiple pressure injuries present on admission. Full thickness pressure injury cleft of R ear.Wound viable with small amt sanguineous exudate noted. Periwound erythema noted.(L)0.7cm x (W)0.4cm x (D)0.4cm. Full thickness pressure injury Sacrum with trace amt Biofilm easily removed with gentle friction.Wound bed otherwisw viable .Edges macerated.Erythema without induration periwound.No odor noted(L)1.6cm W()2.3cm x(D)0.2cm. Partial thickness wound lateral R tibia .base of wound moist and viable .(+) maceration with dark discoloration along edges .No odor noted. (L)1cm x (W)0.8cm. Both heels are pink,firm and easily blanchable. Tx.Plan:Cleanse R ear with saline. Apply Silvasorb gel.Cover with Drsg.Change every 3 days and prn. Cleanse Sacrum with Saline.Apply Hydrogel.Cavilon Skin Barrier along edges and periwound.Cover with Optifoam Drsg.Change Daily and prn. Cleanse wound lateral R tibia with Saline.Apply Silvasorb Gel. Cavilon Skin Barrier periwound.Change every 3 days and prn. Apply Cavilon Skin Barrier R ear Daily APM/ASHLEY Mattress. Reposition at least every 2 hours or as tolerated. Off-load heels with pillow. +
[2018-06-09 16:00] VITALS: BP 170/70
--- NOTE | 2018-06-09 16:19 | Surgery Progress Note ---
Surgery Progress Note Objective Last 24 Hour Vital Signs Date Time Temp Pulse Resp B/P (MAP) Pulse Ox O2 Delivery O2 Flow Rate FiO2 06/09/18 13:50 89 20 98 Nasal Cannula 2.0 28 06/09/18 13:40 96 20 98 Nasal Cannula 2.0 28 06/09/18 12:00 98.1 80 18 144/78 (100) 96 06/09/18 09:10 81 143/76 06/09/18 09:00 Nasal Cannula 2.0 06/09/18 08:30 81 20 98 Nasal Cannula 2.0 28 06/09/18 08:24 82 22 98 Nasal Cannula 2.0 28 06/09/18 08:24 Nasal Cannula 2.0 28 06/09/18 08:24 98 Nasal Cannula 2.0 28 06/09/18 08:00 97.9 84 20 143/76 (98) 100 06/09/18 04:00 97.0 68 17 157/79 (105) 98 06/09/18 02:50 84 18 99 Nasal Cannula 2.0 28 06/09/18 02:05 88 20 95 Nasal Cannula 2.0 28 06/09/18 00:00 96.8 77 18 124/69 (87) 98 06/08/18 21:00 Nasal Cannula 2.0 06/08/18 20:00 96.7 93 18 128/73 (91) 95 06/08/18 19:04 98 Nasal Cannula 2.0 28 06/08/18 19:04 Nasal Cannula 2.0 28 06/08/18 19:01 84 20 98 Nasal Cannula 2.0 28 06/08/18 18:54 79 22 99 Nasal Cannula 2.0 28 I&O Intake and Output 06/08/18 06/09/18 18:59 06:59 Intake Total 663.5 ml 1089 ml Output Total 600 ml Balance 63.5 ml 1089 ml Intake Free Water 400 ml IV Total 27.5 ml Tube Feeding 636 ml 689 ml Output Urine Total 600 ml # Bowel Movements 1 Dressing: other Wound: other Drains: other Cardiovascular: RSR Respiratory: decreased breath sounds Abdomen: soft, present bowel sounds Extremities: other Laboratory Tests Test 06/08/18 19:40 06/09/18 06:10 C-Reactive Protein, Quantitative 11.3 mg/dL (0.00-0.90) H Random Vancomycin Level 12.6 ug/mL White Blood Count 7.4 K/UL (4.8-10.8) Red Blood Count 3.86 M/UL (4.70-6.10) L Hemoglobin 11.3 G/DL (14.2-18.0) L Hematocrit 34.8 % (42.0-52.0) L Mean Corpuscular Volume 90 FL (80-99) Mean Corpuscular Hemoglobin 29.4 PG (27.0-31.0) Mean Corpuscular Hemoglobin Concent 32.6 G/DL (32.0-36.0) Red Cell Distribution Width 13.8 % (11.6-14.8) Platelet Count 195 K/UL (150-450) Mean Platelet Volume 8.6 FL (6.5-10.1) Neutrophils (%) (Auto) 72.2 % (45.0-75.0) Lymphocytes (%) (Auto) 17.7 % (20.0-45.0) L Monocytes (%) (Auto) 6.5 % (1.0-10.0) Eosinophils (%) (Auto) 2.7 % (0.0-3.0) Basophils (%) (Auto) 0.9 % (0.0-2.0) Sodium Level 142 MMOL/L (136-145) Potassium Level 4.3 MMOL/L (3.5-5.1) Chloride Level 103 MMOL/L (98-107) Carbon Dioxide Level 32 MMOL/L (21-32) Anion Gap 7 mmol/L (5-15) Blood Urea Nitrogen 58 mg/dL (7-18) H Creatinine 1.8 MG/DL (0.55-1.30) H Estimat Glomerular Filtration Rate mL/min (>60) Glucose Level 335 MG/DL (74-106) #H Uric Acid 6.1 MG/DL (2.6-7.2) Calcium Level 10.8 MG/DL (8.5-10.1) H Calcium (Send out) Pending Phosphorus Level 2.4 MG/DL (2.5-4.9) L Magnesium Level 2.6 MG/DL (1.8-2.4) H Total Bilirubin 0.4 MG/DL (0.2-1.0) Gamma Glutamyl Transpeptidase 33 U/L (5-85) Aspartate Amino Transf (AST/SGOT) 13 U/L (15-37) L Alanine Aminotransferase (ALT/SGPT) 27 U/L (12-78) Alkaline Phosphatase 95 U/L (46-116) Total Creatine Kinase 26 U/L (26-308) Pro-B-Type Natriuretic Peptide 452 pg/mL (0-125) H Total Protein 6.9 G/DL (6.4-8.2) Albumin 2.2 G/DL (3.4-5.0) L Globulin 4.7 g/dL Albumin/Globulin Ratio 0.5 (1.0-2.7) L Vitamin D 25-Hydroxy Pending 25-Hydroxy Vitamin D2 Pending 25-Hydroxy Vitamin D3 Pending Parathyroid Hormone (Intact) Pending Plan Problems: (1) Multiple wounds Assessment & Plan: Pt presents with multiple pressure injuries present on admission. Full thickness pressure injury cleft of R ear.Wound viable with small amt sanguineous exudate noted. Periwound erythema noted.(L)0.7cm x (W)0.4cm x (D) 0.4cm. Full thickness pressure injury Sacrum with trace amt Biofilm easily removed with gentle friction.Wound bed otherwisw viable .Edges macerated.Erythema without induration periwound.No odor noted(L)1.6cm W()2.3cm x(D)0.2cm. Partial thickness wound lateral R tibia .base of wound moist and viable .(+) maceration with dark discoloration along edges .No odor noted. (L)1cm x (W) 0.8cm. Both heels are pink,firm and easily blanchable. Tx.Plan: Cleanse R ear with saline. Apply Silvasorb gel.Cover with Drsg.Change every 3 days and prn. Cleanse Sacrum with Saline.Apply Hydrogel.Cavilon Skin Barrier along edges and periwound.Cover with Optifoam Drsg.Change Daily and prn. Cleanse wound lateral R tibia with Saline.Apply Silvasorb Gel. Cavilon Skin Barrier periwound.Change every 3 days and prn. Apply Cavilon Skin Barrier R ear Daily APM/ASHLEY Mattress. Reposition at least every 2 hours or as tolerated. Off-load heels with pillow. (2) Fever Benyamini,Steven Jun 09, 2018 16:19
--- NOTE | 2018-06-09 19:00 | Consultation ---
DATE OF CONSULTATION: 06/08/2018 ENDOCRINOLOGY CONSULTATION CONSULTING PHYSICIAN: Cristiano Zuñiga M.D. REFERRING PHYSICIAN: Pool Monson M.D. REASON FOR CONSULTATION: Diabetes management. HISTORY OF PRESENT ILLNESS: It is important to note that history mostly is obtained from review of the chart and medical records since the patient is nonverbal. The patient presented to the hospital with fever of 101, dyspnea, azotemia, pneumonia, severe hypercalcemia, and severe hyperglycemia. Glucose was elevated. Endocrinology was consulted in order to assist in the management of diabetes. PAST MEDICAL HISTORY: 1. Organic brain syndrome. 2. Dementia. 3. Hypertension. 4. Constipation. 5. Diabetes. 6. Hyperlipidemia. 7. GERD. 8. Dysphagia. PAST SURGICAL HISTORY: PEG placement. ALLERGIES TO MEDICATIONS: None. MEDICATIONS: Reviewed and reconciled. SOCIAL HISTORY: Unobtainable. REVIEW OF SYSTEMS: Unobtainable. LABORATORY VALUES: WBC 7, hemoglobin 11, hematocrit 34.8, and platelets of 195,000. Sodium 138, potassium 4.0, chloride 98, bicarb 31, BUN 54, creatinine 1.9, and glucose of 545. Calcium of 10.2 and on presentation, had a calcium of 11.5. TSH is normal at 0.7. PHYSICAL EXAMINATION: GENERAL: Nonverbal. VITAL SIGNS: Blood pressure is 150/60, pulse 70, temperature 98.2, and respiratory rate of 18. HEENT: Pupils are equal and reactive to light. Sclerae anicteric. NECK: No JVD. HEART: Regular. ABDOMEN: Positive bowel sounds. G-tube noted. EXTREMITIES: Positive for edema. DIAGNOSES: 1. Severe hyperglycemia. 2. Dysphagia. 3. Sepsis. 4. Hypercalcemia. PLAN: 1. Levemir 20 units b.i.d. 2. NovoLog sliding scale q.6 h. 3. Further adjustment according to blood glucose values. 4. Workup for hypercalcemia by sending PTH level as well as vitamin D level. 5. Follow with results and further advice. Thank you, Dr. Monson, for the courtesy of this consultation. Cristiano Zuñiga M.D. DR: TERESSA/GA JOB#: [id number] CC: VEL
--- NOTE | 2018-06-09 19:16 | NUR ---
HAND-OFF: Report given to TERESSA Suazo.
--- NOTE | 2018-06-09 19:30 | Consultation ---
DATE OF CONSULTATION: 06/09/2018 CARDIOLOGY CONSULTATION CONSULTING PHYSICIAN: Gold Birmingham M.D. REFERRING PHYSICIAN: Pool Monson M.D. REASON FOR CONSULTATION: Elevated troponin and hypertension. HISTORY OF PRESENT ILLNESS: The patient is an 83-year-old gentleman who is nonverbal, [facility] resident with history of dysphagia status post post PEG placement, who was sent from [facility] for fever, temperature 101. The patient was also found to have acute renal failure and hyperglycemia with blood glucose of more than 500. The patient's blood culture also positive for gram-positive cocci. The patient's troponin was also elevated and a Cardiology consultation was obtained for further evaluation and management. REVIEW OF SYSTEMS: Cannot be obtained as the patient is nonverbal. PAST MEDICAL HISTORY: As mentioned above. ALLERGIES: No known drug allergies. MEDICATIONS: Per reconciliation. SOCIAL HISTORY: He is a [facility] resident. Does not smoke or drink alcohol. PHYSICAL EXAMINATION: VITAL SIGNS: Blood pressure is 144/78, pulse is 90, respirations 20, and temperature 98.1. HEAD AND NECK: Showed no JVD. LUNGS: Coarse rhonchi. CARDIOVASCULAR: Regular S1 and S2 with no gallop. ABDOMEN: Status post G-tube. EXTREMITIES: A 1+ pitting edema. LABORATORY AND DIAGNOSTIC DATA: His labs show white count 7.4, hemoglobin 11.4, hematocrit 34.8, and platelet count is 195. Sodium 142, potassium 4.3, BUN of 58, creatinine 1.8, and glucose is 335. Troponin 0.085. BNP 607. ASSESSMENT AND PLAN: 1. Troponin elevation. This could be due to renal failure. The creatinine of the patient was 1.9. The patient is nonverbal. We will get an EKG and repeat cardiac enzymes and get an echocardiogram for further evaluation and management. 2. Hypertension. The patient is on amlodipine 2.5 mg daily, we will continue it. 3. Dysphagia, status post PEG placement. 4. Fever and sepsis on broad-spectrum IV antibiotics. 5. Renal failure. 6. Diabetes, uncontrolled. Thank you very much, Dr. Monson, for allowing me to participate in the care of this patient. Please do not hesitate to contact me for any questions regarding my evaluation. Sincerely, Gold Birmingham M.D. DR: Savanna JOB#: [id number] CC:
[2018-06-09] MEDS ORDERED: 1/2 NS 1000ml IV ONE (19:59)
[2018-06-09 20:00] VITALS: BP 141/75
--- NOTE | 2018-06-09 20:00 | NUR ---
NURSE NOTES: Patient received in bed, awake, nonverbal. On o2 via NC, NAD noted at this time. IV on right hand intact and patent. GTF tolerating well, no residual. FC draining urine via gravity, secured to leg. HOB elevated, aspiration precautions. Will continue to monitor.
--- NOTE | 2018-06-09 20:17 | NUR ---
CASE MANAGEMENT: REVIEW 83/M JOSE FROM [facility] CC: FEVER SI: FEVER 100.9 HR 96 RR 24 BP 156/54 SAT 98% NC/2L BUN 54 CR 1.9 GLUCOSE 545 TROPONIN I 0.085 IS: TYLENOL GT X1 LEVOFLOXACIN IV X1 NS IVF BOLUS X1 VANCO IV X1 NOVOLOG 6UNITS SQ X1 PATIENT ADMITTED TO MED/SURG UNIT 06/07/2018 DCP: PATIENT IS FROM [facility]
[2018-06-10] VITALS: BP 152/68
[2018-06-10] MEDS: Albuterol/Ipratropium 3ml neb HHN SCH ×4 (02:05→19:14)
--- NOTE | 2018-06-10 03:29 | NUR ---
NURSE NOTES: Patient had BM. sacral dressing changed. RLE, B heel, and B ear dressings reinforced. Addendum: 06/10/18 at 0331 by MIGUEL CHOWDARY RN RN Noted with trace amount of blood in the kong catheter. no filipe bleeding. FC is secured to thigh. Will notify in AM. Will continue to monitor.
[2018-06-10 04:00] VITALS: BP 154/78
[2018-06-10] MEDS: Piperacillin/Tazobactam 3.375 GM in D5W 110 ML IVPB SCH ×3 (05:18→21:58)
[2018-06-10] MEDS: NovoLOG Insulin Flexpen SUBQ SCH ×4 (05:19→20:24)
--- NOTE | 2018-06-10 06:38 | General Progress Note ---
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 SNOMED: 992089987 (3) DM (diabetes mellitus) ICD Codes: E11.9 - Type 2 diabetes mellitus without complications SNOMED: 14959292 (4) Dementia ICD Codes: F03.90 - Unspecified dementia without behavioral disturbance SNOMED: 60003231 Assessment/Plan reduce Levemir to 20 units bid continue NISS Subjective ROS Limited/Unobtainable: Yes Allergies: Coded Allergies: NO KNOWN DRUG ALLERGIES (Unverified Allergy, Unknown, 05/29/14) Subjective events noted glucose values improved and trending down Item Value Date Time Bedside Blood Glucose 100 mg/dl 06/10/18 0540 Bedside Blood Glucose 175 mg/dl H 06/09/18 2159 Bedside Blood Glucose 153 mg/dl H 06/09/18 1720 Bedside Blood Glucose 258 mg/dl H 06/09/18 1251 Bedside Blood Glucose 365 mg/dl H 06/09/18 0910 Bedside Blood Glucose 365 mg/dl H 06/09/18 0639 Objective Last 24 Hour Vital Signs Date Time Temp Pulse Resp B/P (MAP) Pulse Ox O2 Delivery O2 Flow Rate FiO2 06/10/18 04:00 97.7 84 17 154/78 (103) 97 06/10/18 02:00 85 20 98 Nasal Cannula 2.0 28 06/10/18 01:45 80 20 95 Nasal Cannula 2.0 28 06/10/18 00:00 98.2 80 17 152/68 (96) 98 06/09/18 21:00 Nasal Cannula 2.0 06/09/18 20:00 97 Nasal Cannula 2.0 28 06/09/18 20:00 98.7 85 18 141/75 (97) 95 06/09/18 20:00 86 20 99 Nasal Cannula 2.0 28 06/09/18 20:00 Nasal Cannula 2.0 28 06/09/18 19:50 82 20 97 Nasal Cannula 2.0 28 06/09/18 16:00 97.9 59 20 170/70 (103) 97 06/09/18 13:50 89 20 98 Nasal Cannula 2.0 28 06/09/18 13:40 96 20 98 Nasal Cannula 2.0 28 06/09/18 12:00 98.1 80 18 144/78 (100) 96 06/09/18 09:10 81 143/76 06/09/18 09:00 Nasal Cannula 2.0 06/09/18 08:30 81 20 98 Nasal Cannula 2.0 28 06/09/18 08:24 82 22 98 Nasal Cannula 2.0 28 06/09/18 08:24 Nasal Cannula 2.0 28 06/09/18 08:24 98 Nasal Cannula 2.0 28 06/09/18 08:00 97.9 84 20 143/76 (98) 100 Intake and Output 06/09/18 06/10/18 19:00 07:00 Intake Total 1453.0 ml 1445.5 ml Output Total 800 ml 500 ml Balance 653.0 ml 945.5 ml Intake Free Water 100 ml 50 ml IV Total 770.0 ml 812.5 ml Tube Feeding 583 ml 583 ml Output Urine Total 800 ml 500 ml # Bowel Movements 1 Height (Feet): 5 Height (Inches): 7.00 Weight (Pounds): 169 General Appearance: no apparent distress Neck: normal alignment Cardiovascular: normal rate Respiratory/Chest: normal breath sounds Abdomen: normal bowel sounds Objective Current Medications Medications (Trade) Dose Ordered Sig/Dimas Route PRN Reason Start Time Stop Time Status Last Admin Dose Admin Albuterol/ Ipratropium (Albuterol/ Ipratropium) 3 ml Q6HRT HHN 06/07/18 21:30 06/12/18 21:29 06/10/18 02:05 Amlodipine Besylate (Norvasc) 2.5 mg DAILY GT 06/08/18 09:00 07/08/18 08:59 06/09/18 09:10 Aspirin (ASA) 81 mg DAILY GT 06/08/18 09:00 07/08/18 08:59 06/09/18 09:09 Dextrose (Dextrose 50%) 25 ml Q30M PRN IV Hypoglycemia 06/07/18 21:30 07/07/18 21:29 Dextrose (Dextrose 50%) 50 ml Q30M PRN IV Hypoglycemia 06/07/18 21:30 07/07/18 21:29 Docusate Sodium (Colace) 100 mg TID GT 06/09/18 13:00 07/07/18 17:59 06/09/18 18:12 Gabapentin (Neurontin) 300 mg THREE TIMES A DAY GT 06/07/18 23:00 07/07/18 22:59 06/09/18 18:12 Heparin Sodium (Porcine) (Heparin 5000 units/ml) 5,000 units EVERY 12 HOURS SUBQ 06/07/18 21:00 07/07/18 20:59 06/09/18 21:04 Hydralazine HCl (Apresoline) 25 mg Q4H PRN GT SBP > 180mmHg 06/08/18 17:00 07/07/18 21:29 Insulin Aspart (NovoLOG) BEFORE MEALS AND HS SUBQ 06/07/18 22:00 07/07/18 21:59 06/09/18 21:05 Insulin Detemir (Levemir) 33 units EVERY 12 HOURS SUBQ 06/09/18 09:00 07/08/18 09:29 06/09/18 21:04 Lansoprazole (Prevacid) 30 mg BID GT 06/07/18 18:00 07/07/18 17:59 06/09/18 18:12 Nystatin (Nystatin) 5 ml BID GT 06/08/18 09:00 06/15/18 08:59 06/09/18 18:13 Piperacillin Sod/ Tazobactam Sod 3.375 gm/Dextrose 110 ml @ 27.5 mls/hr Q8HR IVPB 06/08/18 01:00 06/15/18 00:59 06/10/18 05:18 Sodium Chloride 1,000 ml @ 75 mls/hr [id number] IV 06/08/18 17:00 07/08/18 16:59 06/09/18 21:01 Vancomycin HCl (Vanco rx to dose) 1 ea DAILY PRN MISC Per rx protocol 06/07/18 21:45 07/07/18 21:44 Cristiano Zuñiga MD Jun 10, 2018 06:38
[2018-06-10 07:06] LABS: BASOPHILS % (AUTO) 1.1 % (0.0-2.0); EOSINOPHILS % (AUTO) 3.1 % (0.0-3.0); HEMATOCRIT 33.2 % (42.0-52.0); HEMOGLOBIN 10.7 G/DL (14.2-18.0); LYMPHOCYTES % (AUTO) 18.6 % (20.0-45.0); MEAN CORPUSCULAR VOLUME 89 FL (80-99); MONOCYTES % (AUTO) 6.8 % (1.0-10.0); NEUTROPHILS % (AUTO) 70.4 % (45.0-75.0); PLATELET COUNT 212 K/UL (150-450); RED BLOOD COUNT 3.74 M/UL (4.70-6.10); RED CELL DISTRIBUTION WIDTH 13.5 % (11.6-14.8); WHITE BLOOD COUNT 8.3 K/UL (4.8-10.8)
[2018-06-10 07:13] LABS: ALANINE AMINOTRANSFERASE 12 U/L (12-78); ALBUMIN 2.2 G/DL (3.4-5.0); ALBUMIN/GLOBULIN RATIO 0.5 (1.0-2.7); ALKALINE PHOSPHATASE 92 U/L (46-116); ANION GAP 5 mmol/L (5-15); ASPARTATE AMINO TRANSFERASE 15 U/L (15-37); BILIRUBIN,TOTAL 0.2 MG/DL (0.2-1.0); BLOOD UREA NITROGEN 51 mg/dL (7-18); CALCIUM 9.7 MG/DL (8.5-10.1); CARBON DIOXIDE 34 MMOL/L (21-32); CHLORIDE 105 MMOL/L (98-107); CREATININE 1.6 MG/DL (0.55-1.30); PHOSPHORUS 2.3 MG/DL (2.5-4.9); POTASSIUM 3.9 MMOL/L (3.5-5.1); SODIUM 144 MMOL/L (136-145)
--- NOTE | 2018-06-10 07:34 | NUR ---
HAND-OFF: Report given to Amalia GANNON.
--- NOTE | 2018-06-10 07:50 | NUR ---
NURSE NOTES: Received patient in bed,opens his eyes spontaneously but non-verbal. Patient is on oxygen with NC. Holliday intact, draining well to gravity. GT intact, Gt dressing intact, no leaking. IV intact, no s/s of infiltration. Not in acute distress noted. HOB elevated, Bed is in lowest position and locked. Will continue plan of care.
[2018-06-10 08:00] VITALS: BP 150/76
[2018-06-10] MEDS: Docusate 100mg/10ml Liq GT SCH ×3 (08:48→17:22)
[2018-06-10] MEDS: Nystatin Susp 500,000 units/5ml GT SCH ×2 (08:48→17:22)
[2018-06-10] MEDS: Aspirin Baby 81mg GT SCH (08:48)
[2018-06-10] MEDS: Gabapentin 300 MG/6 ML Soln GT SCH ×3 (08:48→17:22)
[2018-06-10] MEDS: Heparin 5000 units/ml inj SUBQ SCH ×2 (09:11→21:54)
--- NOTE | 2018-06-10 09:30 | NUR ---
NURSE NOTES: Received report of troponin of 0.071 which is trending down.
[2018-06-10] MEDS ORDERED: Vancomycin 1gm/D5W 275ml IVPB SCH ×2 (10:00)
[2018-06-10] MEDS: Levemir Flexpen SUBQ SCH ×2 (10:34→20:25)
[2018-06-10 12:00] VITALS: BP 158/86
--- NOTE | 2018-06-10 12:02 | NUR ---
NURSE NOTES: Dr. Roc Devi aware of blood culture of gram (+) rods.
--- NOTE | 2018-06-10 12:08 | Infectious Diseases Prog Note ---
Assessment/Plan Assessment/Plan A 1. fever improving 2. + blood cultures with coag neg staph likely contaminated 3. renal failure improving 4. hyperglycemia P 1. continue iv vancomycin, Zosyn 2. will follow up cultures Subjective ROS Limited/Unobtainable: Yes Respiratory: Reports: dry cough Allergies: Coded Allergies: NO KNOWN DRUG ALLERGIES (Unverified Allergy, Unknown, 05/29/14) Objective Vital Signs Last 24 Hour Vital Signs Date Time Temp Pulse Resp B/P (MAP) Pulse Ox O2 Delivery O2 Flow Rate FiO2 06/10/18 12:02 87 14 100 Nasal Cannula 2.0 28 06/10/18 11:46 82 14 96 Nasal Cannula 2.0 28 06/10/18 09:00 Nasal Cannula 2.0 06/10/18 08:48 82 150/76 06/10/18 08:00 97.9 82 18 150/76 (100) 97 06/10/18 07:25 85 16 99 Nasal Cannula 2.0 28 06/10/18 07:17 97 Nasal Cannula 2.0 28 06/10/18 07:17 80 16 97 Nasal Cannula 2.0 28 06/10/18 07:17 Nasal Cannula 2.0 28 06/10/18 04:00 97.7 84 17 154/78 (103) 97 06/10/18 02:00 85 20 98 Nasal Cannula 2.0 28 06/10/18 01:45 80 20 95 Nasal Cannula 2.0 28 06/10/18 00:00 98.2 80 17 152/68 (96) 98 06/09/18 21:00 Nasal Cannula 2.0 06/09/18 20:00 97 Nasal Cannula 2.0 28 06/09/18 20:00 98.7 85 18 141/75 (97) 95 06/09/18 20:00 86 20 99 Nasal Cannula 2.0 28 06/09/18 20:00 Nasal Cannula 2.0 28 06/09/18 19:50 82 20 97 Nasal Cannula 2.0 28 06/09/18 16:00 97.9 59 20 170/70 (103) 97 06/09/18 13:50 89 20 98 Nasal Cannula 2.0 28 06/09/18 13:40 96 20 98 Nasal Cannula 2.0 28 Height (Feet): 5 Height (Inches): 7.00 Weight (Pounds): 169 General Appearance: no acute distress HEENT: mucous membranes moist Respiratory/Chest: lungs clear, other - oxygen by nasa cannula Cardiovascular: normal rate Abdomen: soft, non tender, other - GT feeding Extremities: other - hand edema Skin: ulcers Neurologic/Psychiatric: aphasia Microbiology Date/Time Source Procedure Growth Status 06/07/18 12:50 Blood Blood Culture - Preliminary Resulted 06/07/18 12:45 Blood Blood Culture - Final Staphylococcus Epidermidis Complete 06/08/18 17:16 Nasal Nares Influenza Types A,B Antigen (JETHRO) - Final Complete 06/07/18 13:40 Nasal Nares MRSA Culture - Final NO METHICILLIN RESISTANT STAPH AUREUS... Complete 06/07/18 13:40 Rectum VRE Culture - Final Enterococcus Faecalis - Vre Complete 06/07/18 13:40 Rectum - Final NO CARBAPENEM-RESISTANT ENTEROBACTERI... Complete Laboratory Tests Test 06/10/18 05:20 White Blood Count 8.3 K/UL (4.8-10.8) Red Blood Count 3.74 M/UL (4.70-6.10) L Hemoglobin 10.7 G/DL (14.2-18.0) L Hematocrit 33.2 % (42.0-52.0) L Mean Corpuscular Volume 89 FL (80-99) Mean Corpuscular Hemoglobin 28.6 PG (27.0-31.0) Mean Corpuscular Hemoglobin Concent 32.3 G/DL (32.0-36.0) Red Cell Distribution Width 13.5 % (11.6-14.8) Platelet Count 212 K/UL (150-450) Mean Platelet Volume 8.0 FL (6.5-10.1) Neutrophils (%) (Auto) 70.4 % (45.0-75.0) Lymphocytes (%) (Auto) 18.6 % (20.0-45.0) L Monocytes (%) (Auto) 6.8 % (1.0-10.0) Eosinophils (%) (Auto) 3.1 % (0.0-3.0) H Basophils (%) (Auto) 1.1 % (0.0-2.0) Sodium Level 144 MMOL/L (136-145) Potassium Level 3.9 MMOL/L (3.5-5.1) Chloride Level 105 MMOL/L (98-107) Carbon Dioxide Level 34 MMOL/L (21-32) H Anion Gap 5 mmol/L (5-15) Blood Urea Nitrogen 51 mg/dL (7-18) H Creatinine 1.6 MG/DL (0.55-1.30) H Estimat Glomerular Filtration Rate mL/min (>60) Glucose Level 87 MG/DL (74-106) # Uric Acid 5.2 MG/DL (2.6-7.2) Calcium Level 9.7 MG/DL (8.5-10.1) Phosphorus Level 2.3 MG/DL (2.5-4.9) L Magnesium Level 2.3 MG/DL (1.8-2.4) Total Bilirubin 0.2 MG/DL (0.2-1.0) Aspartate Amino Transf (AST/SGOT) 15 U/L (15-37) Alanine Aminotransferase (ALT/SGPT) 12 U/L (12-78) Alkaline Phosphatase 92 U/L (46-116) Troponin I 0.071 ng/mL (0.000-0.056) Pro-B-Type Natriuretic Peptide 681 pg/mL (0-125) H Total Protein 6.7 G/DL (6.4-8.2) Albumin 2.2 G/DL (3.4-5.0) L Globulin 4.5 g/dL Albumin/Globulin Ratio 0.5 (1.0-2.7) L Random Vancomycin Level 14.9 ug/mL Current Medications Medications (Trade) Dose Ordered Sig/Dimas Route PRN Reason Start Time Stop Time Status Last Admin Dose Admin Albuterol/ Ipratropium (Albuterol/ Ipratropium) 3 ml Q6HRT HHN 06/07/18 21:30 06/12/18 21:29 06/10/18 11:45 Amlodipine Besylate (Norvasc) 2.5 mg DAILY GT 06/08/18 09:00 07/08/18 08:59 06/10/18 08:48 Aspirin (ASA) 81 mg DAILY GT 06/08/18 09:00 07/08/18 08:59 06/10/18 08:48 Dextrose (Dextrose 50%) 25 ml Q30M PRN IV Hypoglycemia 06/07/18 21:30 07/07/18 21:29 Dextrose (Dextrose 50%) 50 ml Q30M PRN IV Hypoglycemia 06/07/18 21:30 07/07/18 21:29 Docusate Sodium (Colace) 100 mg TID GT 06/09/18 13:00 07/07/18 17:59 06/10/18 08:48 Gabapentin (Neurontin) 300 mg THREE TIMES A DAY GT 06/07/18 23:00 07/07/18 22:59 06/10/18 08:48 Heparin Sodium (Porcine) (Heparin 5000 units/ml) 5,000 units EVERY 12 HOURS SUBQ 06/07/18 21:00 07/07/18 20:59 06/10/18 09:11 Hydralazine HCl (Apresoline) 25 mg Q4H PRN GT SBP > 180mmHg 06/08/18 17:00 07/07/18 21:29 Insulin Aspart (NovoLOG) BEFORE MEALS AND HS SUBQ 06/07/18 22:00 07/07/18 21:59 06/10/18 11:53 Insulin Detemir (Levemir) 20 units EVERY 12 HOURS SUBQ 06/10/18 09:00 07/08/18 09:29 06/10/18 10:34 Lansoprazole (Prevacid) 30 mg BID GT 06/07/18 18:00 07/07/18 17:59 06/10/18 08:48 Nystatin (Nystatin) 5 ml BID GT 06/08/18 09:00 06/15/18 08:59 06/10/18 08:48 Piperacillin Sod/ Tazobactam Sod 3.375 gm/Dextrose 110 ml @ 27.5 mls/hr Q8HR IVPB 06/08/18 01:00 06/15/18 00:59 06/10/18 05:18 Sodium Chloride 1,000 ml @ 75 mls/hr [id number] IV 06/08/18 17:00 07/08/18 16:59 06/09/18 21:01 Vancomycin HCl (Vanco rx to dose) 1 ea DAILY PRN MISC Per rx protocol 06/07/18 21:45 07/07/18 21:44 Roc Devi MD Jun 10, 2018 12:08
--- NOTE | 2018-06-10 14:31 | Pulmonology Progress Note ---
Assessment/Plan Problems: (1) Sepsis (2) Renal failure (ARF), acute on chronic (3) Diabetes (4) Dementia (5) Diabetic nephropathy (6) Feeding by G-tube (7) History of CVA (cerebrovascular accident) Assessment/Plan getting better IV fluids iv abx check cultures symptomatic treatment Subjective ROS Limited/Unobtainable: No Allergies: Coded Allergies: NO KNOWN DRUG ALLERGIES (Unverified Allergy, Unknown, 05/29/14) Objective Last 24 Hour Vital Signs Date Time Temp Pulse Resp B/P (MAP) Pulse Ox O2 Delivery O2 Flow Rate FiO2 06/10/18 12:02 87 14 100 Nasal Cannula 2.0 28 06/10/18 12:00 98.1 84 18 158/86 (110) 98 06/10/18 11:46 82 14 96 Nasal Cannula 2.0 28 06/10/18 09:00 Nasal Cannula 2.0 06/10/18 08:48 82 150/76 06/10/18 08:00 97.9 82 18 150/76 (100) 97 06/10/18 07:25 85 16 99 Nasal Cannula 2.0 28 06/10/18 07:17 97 Nasal Cannula 2.0 28 06/10/18 07:17 80 16 97 Nasal Cannula 2.0 28 06/10/18 07:17 Nasal Cannula 2.0 28 06/10/18 04:00 97.7 84 17 154/78 (103) 97 06/10/18 02:00 85 20 98 Nasal Cannula 2.0 28 06/10/18 01:45 80 20 95 Nasal Cannula 2.0 28 06/10/18 00:00 98.2 80 17 152/68 (96) 98 06/09/18 21:00 Nasal Cannula 2.0 06/09/18 20:00 97 Nasal Cannula 2.0 28 06/09/18 20:00 98.7 85 18 141/75 (97) 95 06/09/18 20:00 86 20 99 Nasal Cannula 2.0 28 06/09/18 20:00 Nasal Cannula 2.0 28 06/09/18 19:50 82 20 97 Nasal Cannula 2.0 28 06/09/18 16:00 97.9 59 20 170/70 (103) 97 Intake and Output 06/09/18 06/10/18 19:00 07:00 Intake Total 1453.0 ml 1520.5 ml Output Total 800 ml 500 ml Balance 653.0 ml 1020.5 ml Intake Free Water 100 ml 50 ml IV Total 770.0 ml 887.5 ml Tube Feeding 583 ml 583 ml Output Urine Total 800 ml 500 ml # Bowel Movements 1 Objective General Appearance: WD/WN, no apparent distress Lines, tubes and drains: peripheral HEENT: normocephalic, atraumatic Neck: non-tender, normal alignment Respiratory/Chest: chest wall non-tender, lungs clear Cardiovascular/Chest: normal peripheral pulses, normal rate Abdomen: normal bowel sounds Extremities: normal range of motion Skin Exam: normal pigmentation Neurologic: claims adjuster II-XII grossly normal Microbiology Date/Time Source Procedure Growth Status 06/08/18 17:16 Nasal Nares Influenza Types A,B Antigen (JETHRO) - Final Complete Laboratory Tests 06/10/18 05:20: White Blood Count 8.3, Red Blood Count 3.74L, Hemoglobin 10.7L, Hematocrit 33.2L , Mean Corpuscular Volume 89, Mean Corpuscular Hemoglobin 28.6, Mean Corpuscular Hemoglobin Concent 32.3, Red Cell Distribution Width 13.5, Platelet Count 212, Mean Platelet Volume 8.0, Neutrophils (%) (Auto) 70.4, Lymphocytes (% ) (Auto) 18.6L, Monocytes (%) (Auto) 6.8, Eosinophils (%) (Auto) 3.1H, Basophils (%) (Auto) 1.1, Sodium Level 144, Potassium Level 3.9, Chloride Level 105, Carbon Dioxide Level 34H, Anion Gap 5, Blood Urea Nitrogen 51H, Creatinine 1.6H, Estimat Glomerular Filtration Rate , Glucose Level 87#, Uric Acid 5.2, Calcium Level 9.7, Phosphorus Level 2.3L, Magnesium Level 2.3, Total Bilirubin 0.2, Aspartate Amino Transf (AST/SGOT) 15, Alanine Aminotransferase (ALT/SGPT) 12, Alkaline Phosphatase 92, Troponin I 0.071H, Pro-B-Type Natriuretic Peptide 681H, Total Protein 6.7, Albumin 2.2L, Globulin 4.5, Albumin/Globulin Ratio 0.5L , Random Vancomycin Level 14.9 Current Medications Medications (Trade) Dose Ordered Sig/Dimas Route PRN Reason Start Time Stop Time Status Last Admin Dose Admin Albuterol/ Ipratropium (Albuterol/ Ipratropium) 3 ml Q6HRT HHN 06/07/18 21:30 06/12/18 21:29 06/10/18 11:45 Amlodipine Besylate (Norvasc) 2.5 mg DAILY GT 06/08/18 09:00 07/08/18 08:59 06/10/18 08:48 Aspirin (ASA) 81 mg DAILY GT 06/08/18 09:00 07/08/18 08:59 06/10/18 08:48 Dextrose (Dextrose 50%) 25 ml Q30M PRN IV Hypoglycemia 06/07/18 21:30 07/07/18 21:29 Dextrose (Dextrose 50%) 50 ml Q30M PRN IV Hypoglycemia 06/07/18 21:30 07/07/18 21:29 Docusate Sodium (Colace) 100 mg TID GT 06/09/18 13:00 07/07/18 17:59 06/10/18 13:00 Gabapentin (Neurontin) 300 mg THREE TIMES A DAY GT 06/07/18 23:00 07/07/18 22:59 06/10/18 13:00 Heparin Sodium (Porcine) (Heparin 5000 units/ml) 5,000 units EVERY 12 HOURS SUBQ 06/07/18 21:00 07/07/18 20:59 06/10/18 09:11 Hydralazine HCl (Apresoline) 25 mg Q4H PRN GT SBP > 180mmHg 06/08/18 17:00 07/07/18 21:29 Insulin Aspart (NovoLOG) BEFORE MEALS AND HS SUBQ 06/07/18 22:00 07/07/18 21:59 06/10/18 11:53 Insulin Detemir (Levemir) 20 units EVERY 12 HOURS SUBQ 06/10/18 09:00 07/08/18 09:29 06/10/18 10:34 Lansoprazole (Prevacid) 30 mg BID GT 06/07/18 18:00 07/07/18 17:59 06/10/18 08:48 Nystatin (Nystatin) 5 ml BID GT 06/08/18 09:00 06/15/18 08:59 06/10/18 08:48 Piperacillin Sod/ Tazobactam Sod 3.375 gm/Dextrose 110 ml @ 27.5 mls/hr Q8HR IVPB 06/08/18 01:00 06/15/18 00:59 06/10/18 05:18 Sodium Chloride 1,000 ml @ 75 mls/hr [id number] IV 06/08/18 17:00 07/08/18 16:59 06/10/18 13:00 Vancomycin HCl (Vanco rx to dose) 1 ea DAILY PRN MISC Per rx protocol 06/07/18 21:45 07/07/18 21:44 Wang Guzman MD Jun 10, 2018 14:31
--- NOTE | 2018-06-10 14:33 | General Progress Note ---
Assessment/Plan Problem List: (1) Dementia ICD Codes: F03.90 - Unspecified dementia without behavioral disturbance SNOMED: 02239841 (2) Diabetes ICD Codes: E11.9 - Type 2 diabetes mellitus without complications SNOMED: 79764442 (3) HTN (hypertension) ICD Codes: I10 - Essential (primary) hypertension SNOMED: 32333335 (4) Sepsis ICD Codes: A41.9 - Sepsis SNOMED: 42080897 (5) PNA (pneumonia) ICD Codes: J18.9 - Pneumonia, unspecified organism SNOMED: 920939034 Qualifiers: Qualified Codes: J18.9 - Pneumonia, unspecified organism (6) Renal failure (ARF), acute on chronic ICD Codes: N17.9 - Acute kidney failure, unspecified; N18.9 - Chronic kidney disease, unspecified SNOMED: 858011323 Status: unchanged Assessment/Plan o2 pulm tx pt diet abx cbc bmp am Subjective Constitutional: Reports: weakness Allergies: Coded Allergies: NO KNOWN DRUG ALLERGIES (Unverified Allergy, Unknown, 05/29/14) All Systems: reviewed and negative except above Subjective o2nc confused Objective Last 24 Hour Vital Signs Date Time Temp Pulse Resp B/P (MAP) Pulse Ox O2 Delivery O2 Flow Rate FiO2 06/10/18 12:02 87 14 100 Nasal Cannula 2.0 28 06/10/18 12:00 98.1 84 18 158/86 (110) 98 06/10/18 11:46 82 14 96 Nasal Cannula 2.0 28 06/10/18 09:00 Nasal Cannula 2.0 06/10/18 08:48 82 150/76 06/10/18 08:00 97.9 82 18 150/76 (100) 97 06/10/18 07:25 85 16 99 Nasal Cannula 2.0 28 06/10/18 07:17 97 Nasal Cannula 2.0 28 06/10/18 07:17 80 16 97 Nasal Cannula 2.0 28 06/10/18 07:17 Nasal Cannula 2.0 28 06/10/18 04:00 97.7 84 17 154/78 (103) 97 06/10/18 02:00 85 20 98 Nasal Cannula 2.0 28 06/10/18 01:45 80 20 95 Nasal Cannula 2.0 28 06/10/18 00:00 98.2 80 17 152/68 (96) 98 06/09/18 21:00 Nasal Cannula 2.0 06/09/18 20:00 97 Nasal Cannula 2.0 28 06/09/18 20:00 98.7 85 18 141/75 (97) 95 06/09/18 20:00 86 20 99 Nasal Cannula 2.0 28 06/09/18 20:00 Nasal Cannula 2.0 28 06/09/18 19:50 82 20 97 Nasal Cannula 2.0 28 06/09/18 16:00 97.9 59 20 170/70 (103) 97 Intake and Output 06/09/18 06/10/18 19:00 07:00 Intake Total 1453.0 ml 1520.5 ml Output Total 800 ml 500 ml Balance 653.0 ml 1020.5 ml Intake Free Water 100 ml 50 ml IV Total 770.0 ml 887.5 ml Tube Feeding 583 ml 583 ml Output Urine Total 800 ml 500 ml # Bowel Movements 1 Laboratory Tests 06/10/18 05:20: White Blood Count 8.3, Red Blood Count 3.74L, Hemoglobin 10.7L, Hematocrit 33.2L , Mean Corpuscular Volume 89, Mean Corpuscular Hemoglobin 28.6, Mean Corpuscular Hemoglobin Concent 32.3, Red Cell Distribution Width 13.5, Platelet Count 212, Mean Platelet Volume 8.0, Neutrophils (%) (Auto) 70.4, Lymphocytes (% ) (Auto) 18.6L, Monocytes (%) (Auto) 6.8, Eosinophils (%) (Auto) 3.1H, Basophils (%) (Auto) 1.1, Sodium Level 144, Potassium Level 3.9, Chloride Level 105, Carbon Dioxide Level 34H, Anion Gap 5, Blood Urea Nitrogen 51H, Creatinine 1.6H, Estimat Glomerular Filtration Rate , Glucose Level 87#, Uric Acid 5.2, Calcium Level 9.7, Phosphorus Level 2.3L, Magnesium Level 2.3, Total Bilirubin 0.2, Aspartate Amino Transf (AST/SGOT) 15, Alanine Aminotransferase (ALT/SGPT) 12, Alkaline Phosphatase 92, Troponin I 0.071H, Pro-B-Type Natriuretic Peptide 681H, Total Protein 6.7, Albumin 2.2L, Globulin 4.5, Albumin/Globulin Ratio 0.5L , Random Vancomycin Level 14.9 Height (Feet): 5 Height (Inches): 7.00 Weight (Pounds): 169 General Appearance: lethargic, confused EENT: normal ENT inspection Neck: normal alignment Cardiovascular: normal peripheral pulses, normal rate, regular rhythm Respiratory/Chest: chest wall non-tender, lungs clear, normal breath sounds Abdomen: normal bowel sounds, non tender, soft Extremities: normal inspection Edema: no edema noted Arm (L), no edema noted Arm (R), no edema noted Leg (L), no edema noted Leg (R), no edema noted Pedal (L), no edema noted Pedal (R), no edema noted Generalized Neurologic: motor weakness Skin: normal pigmentation, warm/dry Remberto Joe DO Jun 10, 2018 14:33
--- NOTE | 2018-06-10 15:39 | Cardiology Report ---
APPROVED REPORT EKG Measurement Heart [id number] Sinus rhythm with sinus arrhythmia with occasional Left axis deviation Low voltage QRS Nonspecific ST and T wave abnormality Abnormal ECG
--- NOTE | 2018-06-10 15:54 | Nephrology Progress Note ---
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 DM OOC Diabetic Nephropathy Proteinuria and HypoAlbuminemia High Ca likely dehydration Plan trial of Aredia Hydrate Antibiotics Per ID Monitor renal parameters Urine studies adjust electrolytes Subjective ROS Limited/Unobtainable: No Constitutional: Reports: malaise Objective Objective Last 24 Hour Vital Signs Date Time Temp Pulse Resp B/P (MAP) Pulse Ox O2 Delivery O2 Flow Rate FiO2 06/10/18 12:02 87 14 100 Nasal Cannula 2.0 28 06/10/18 12:00 98.1 84 18 158/86 (110) 98 06/10/18 11:46 82 14 96 Nasal Cannula 2.0 28 06/10/18 09:00 Nasal Cannula 2.0 06/10/18 08:48 82 150/76 06/10/18 08:00 97.9 82 18 150/76 (100) 97 06/10/18 07:25 85 16 99 Nasal Cannula 2.0 28 06/10/18 07:17 97 Nasal Cannula 2.0 28 06/10/18 07:17 80 16 97 Nasal Cannula 2.0 28 06/10/18 07:17 Nasal Cannula 2.0 28 06/10/18 04:00 97.7 84 17 154/78 (103) 97 06/10/18 02:00 85 20 98 Nasal Cannula 2.0 28 06/10/18 01:45 80 20 95 Nasal Cannula 2.0 28 06/10/18 00:00 98.2 80 17 152/68 (96) 98 06/09/18 21:00 Nasal Cannula 2.0 06/09/18 20:00 97 Nasal Cannula 2.0 28 06/09/18 20:00 98.7 85 18 141/75 (97) 95 06/09/18 20:00 86 20 99 Nasal Cannula 2.0 28 06/09/18 20:00 Nasal Cannula 2.0 28 06/09/18 19:50 82 20 97 Nasal Cannula 2.0 28 06/09/18 16:00 97.9 59 20 170/70 (103) 97 Intake and Output 06/09/18 06/10/18 19:00 07:00 Intake Total 1453.0 ml 1520.5 ml Output Total 800 ml 500 ml Balance 653.0 ml 1020.5 ml Intake Free Water 100 ml 50 ml IV Total 770.0 ml 887.5 ml Tube Feeding 583 ml 583 ml Output Urine Total 800 ml 500 ml # Bowel Movements 1 Laboratory Tests 06/10/18 05:20: White Blood Count 8.3, Red Blood Count 3.74L, Hemoglobin 10.7L, Hematocrit 33.2L , Mean Corpuscular Volume 89, Mean Corpuscular Hemoglobin 28.6, Mean Corpuscular Hemoglobin Concent 32.3, Red Cell Distribution Width 13.5, Platelet Count 212, Mean Platelet Volume 8.0, Neutrophils (%) (Auto) 70.4, Lymphocytes (% ) (Auto) 18.6L, Monocytes (%) (Auto) 6.8, Eosinophils (%) (Auto) 3.1H, Basophils (%) (Auto) 1.1, Sodium Level 144, Potassium Level 3.9, Chloride Level 105, Carbon Dioxide Level 34H, Anion Gap 5, Blood Urea Nitrogen 51H, Creatinine 1.6H, Estimat Glomerular Filtration Rate , Glucose Level 87#, Uric Acid 5.2, Calcium Level 9.7, Phosphorus Level 2.3L, Magnesium Level 2.3, Total Bilirubin 0.2, Aspartate Amino Transf (AST/SGOT) 15, Alanine Aminotransferase (ALT/SGPT) 12, Alkaline Phosphatase 92, Troponin I 0.071H, Pro-B-Type Natriuretic Peptide 681H, Total Protein 6.7, Albumin 2.2L, Globulin 4.5, Albumin/Globulin Ratio 0.5L , Random Vancomycin Level 14.9 Height (Feet): 5 Height (Inches): 7.00 Weight (Pounds): 169 General Appearance: no apparent distress Cardiovascular: normal rate Respiratory/Chest: decreased breath sounds Abdomen: soft Hansel Kirkpatrick MD Jun 10, 2018 15:54
[2018-06-10 16:00] VITALS: BP 156/84
--- NOTE | 2018-06-10 16:51 | Cardiac Electrophysiology PN ---
Assessment/Plan Assessment/Plan 1. Troponin elevation, could be due to renal failure. The creatinine of the patient was 1.9. The patient is nonverbal. Echocardiogram EF 55% ECG no ST elevation 2. Hypertension. The patient is on amlodipine 2.5 mg daily, 3. Dysphagia, status post PEG placement. 4. Fever and sepsis on broad-spectrum IV antibiotics. 5. Renal failure. 6. Diabetes, uncontrolled. Subjective Subjective No events. Sitter at bedside Objective Last 24 Hour Vital Signs Date Time Temp Pulse Resp B/P (MAP) Pulse Ox O2 Delivery O2 Flow Rate FiO2 06/10/18 16:00 98.8 83 17 156/84 (108) 98 06/10/18 12:02 87 14 100 Nasal Cannula 2.0 28 06/10/18 12:00 98.1 84 18 158/86 (110) 98 06/10/18 11:46 82 14 96 Nasal Cannula 2.0 28 06/10/18 09:00 Nasal Cannula 2.0 06/10/18 08:48 82 150/76 06/10/18 08:00 97.9 82 18 150/76 (100) 97 06/10/18 07:25 85 16 99 Nasal Cannula 2.0 28 06/10/18 07:17 97 Nasal Cannula 2.0 28 06/10/18 07:17 80 16 97 Nasal Cannula 2.0 28 06/10/18 07:17 Nasal Cannula 2.0 28 06/10/18 04:00 97.7 84 17 154/78 (103) 97 06/10/18 02:00 85 20 98 Nasal Cannula 2.0 28 06/10/18 01:45 80 20 95 Nasal Cannula 2.0 28 06/10/18 00:00 98.2 80 17 152/68 (96) 98 06/09/18 21:00 Nasal Cannula 2.0 06/09/18 20:00 97 Nasal Cannula 2.0 28 06/09/18 20:00 98.7 85 18 141/75 (97) 95 06/09/18 20:00 86 20 99 Nasal Cannula 2.0 28 06/09/18 20:00 Nasal Cannula 2.0 28 06/09/18 19:50 82 20 97 Nasal Cannula 2.0 28 Intake and Output 06/09/18 06/10/18 19:00 07:00 Intake Total 1453.0 ml 1520.5 ml Output Total 800 ml 500 ml Balance 653.0 ml 1020.5 ml Intake Free Water 100 ml 50 ml IV Total 770.0 ml 887.5 ml Tube Feeding 583 ml 583 ml Output Urine Total 800 ml 500 ml # Bowel Movements 1 Laboratory Tests Test 06/10/18 05:20 White Blood Count 8.3 K/UL (4.8-10.8) Red Blood Count 3.74 M/UL (4.70-6.10) L Hemoglobin 10.7 G/DL (14.2-18.0) L Hematocrit 33.2 % (42.0-52.0) L Mean Corpuscular Volume 89 FL (80-99) Mean Corpuscular Hemoglobin 28.6 PG (27.0-31.0) Mean Corpuscular Hemoglobin Concent 32.3 G/DL (32.0-36.0) Red Cell Distribution Width 13.5 % (11.6-14.8) Platelet Count 212 K/UL (150-450) Mean Platelet Volume 8.0 FL (6.5-10.1) Neutrophils (%) (Auto) 70.4 % (45.0-75.0) Lymphocytes (%) (Auto) 18.6 % (20.0-45.0) L Monocytes (%) (Auto) 6.8 % (1.0-10.0) Eosinophils (%) (Auto) 3.1 % (0.0-3.0) H Basophils (%) (Auto) 1.1 % (0.0-2.0) Sodium Level 144 MMOL/L (136-145) Potassium Level 3.9 MMOL/L (3.5-5.1) Chloride Level 105 MMOL/L (98-107) Carbon Dioxide Level 34 MMOL/L (21-32) H Anion Gap 5 mmol/L (5-15) Blood Urea Nitrogen 51 mg/dL (7-18) H Creatinine 1.6 MG/DL (0.55-1.30) H Estimat Glomerular Filtration Rate mL/min (>60) Glucose Level 87 MG/DL (74-106) # Uric Acid 5.2 MG/DL (2.6-7.2) Calcium Level 9.7 MG/DL (8.5-10.1) Phosphorus Level 2.3 MG/DL (2.5-4.9) L Magnesium Level 2.3 MG/DL (1.8-2.4) Total Bilirubin 0.2 MG/DL (0.2-1.0) Aspartate Amino Transf (AST/SGOT) 15 U/L (15-37) Alanine Aminotransferase (ALT/SGPT) 12 U/L (12-78) Alkaline Phosphatase 92 U/L (46-116) Troponin I 0.071 ng/mL (0.000-0.056) Pro-B-Type Natriuretic Peptide 681 pg/mL (0-125) H Total Protein 6.7 G/DL (6.4-8.2) Albumin 2.2 G/DL (3.4-5.0) L Globulin 4.5 g/dL Albumin/Globulin Ratio 0.5 (1.0-2.7) L Random Vancomycin Level 14.9 ug/mL Microbiology Date/Time Source Procedure Growth Status 06/08/18 17:16 Nasal Nares Influenza Types A,B Antigen (JETHRO) - Final Complete Objective HEAD AND NECK: Showed no JVD. LUNGS: Coarse rhonchi. CARDIOVASCULAR: Regular S1 and S2 with no gallop. ABDOMEN: Status post G-tube. EXTREMITIES: A 1+ pitting edema. Gold Birmingham MD Jun 10, 2018 16:51
[2018-06-10] MEDS ORDERED: Potassium Phosphate 15 MM in NS 275 ML IV ONE (17:00)
--- NOTE | 2018-06-10 19:30 | NUR ---
HAND-OFF: Report given to
[2018-06-10 20:00] VITALS: BP 155/84
--- NOTE | 2018-06-10 20:12 | NUR ---
NURSE NOTES: Received report from Maxine Mariscal RN. Patient in bed, asleep, arousable to touch and to name. Kept clean and comfortable. Bed in low and locked position. No s/s of pain or discomfort noted. Respiration is even and unlabored. On nasal cannula 2 L. On gtube feeding, feeding is infusing as ordered. Noted with dressing on the ear, sacral and right butt. Iv site noted. IV fluid is infusing. Will continue plan of care.
[2018-06-11] VITALS: BP 141/78
[2018-06-11] MEDS: Albuterol/Ipratropium 3ml neb HHN SCH ×5 (00:19→19:39)
[2018-06-11 04:00] VITALS: BP 155/81
[2018-06-11] MEDS: Piperacillin/Tazobactam 3.375 GM in D5W 110 ML IVPB SCH (06:31)
[2018-06-11] MEDS: NovoLOG Insulin Flexpen SUBQ SCH ×4 (06:35→21:36)
--- NOTE | 2018-06-11 06:45 | General Progress Note ---
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 SNOMED: 071733553 (2) Dementia ICD Codes: F03.90 - Unspecified dementia without behavioral disturbance SNOMED: 09511824 Assessment/Plan increase Levemir to 24 units bid continue NISS Subjective ROS Limited/Unobtainable: Yes Allergies: Coded Allergies: NO KNOWN DRUG ALLERGIES (Unverified Allergy, Unknown, 05/29/14) Subjective events noted Item Value Date Time Bedside Blood Glucose 220 mg/dl H 06/11/18 0635 Bedside Blood Glucose 177 mg/dl H 06/10/18 2038 Bedside Blood Glucose 134 mg/dl H 06/10/18 1720 Bedside Blood Glucose 150 mg/dl H 06/10/18 1153 Bedside Blood Glucose 149 mg/dl H 06/10/18 1034 Bedside Blood Glucose 100 mg/dl 06/10/18 0540 Objective Last 24 Hour Vital Signs Date Time Temp Pulse Resp B/P (MAP) Pulse Ox O2 Delivery O2 Flow Rate FiO2 06/11/18 04:00 98.5 77 19 155/81 (105) 96 06/11/18 00:30 72 16 99 Nasal Cannula 2.0 28 06/11/18 00:19 68 16 98 Nasal Cannula 2.0 28 06/11/18 00:00 98.8 73 18 141/78 (99) 97 06/10/18 20:40 Nasal Cannula 2.0 06/10/18 20:00 98.9 18 155/84 (107) 96 06/10/18 19:24 86 16 99 Nasal Cannula 2.0 28 06/10/18 19:16 97 Nasal Cannula 2.0 28 06/10/18 19:16 Nasal Cannula 2.0 28 06/10/18 19:14 81 16 97 Nasal Cannula 2.0 28 06/10/18 16:00 98.8 83 17 156/84 (108) 98 06/10/18 12:02 87 14 100 Nasal Cannula 2.0 28 06/10/18 12:00 98.1 84 18 158/86 (110) 98 06/10/18 11:46 82 14 96 Nasal Cannula 2.0 28 06/10/18 09:00 Nasal Cannula 2.0 06/10/18 08:48 82 150/76 06/10/18 08:00 97.9 82 18 150/76 (100) 97 06/10/18 07:25 85 16 99 Nasal Cannula 2.0 28 06/10/18 07:17 97 Nasal Cannula 2.0 28 06/10/18 07:17 80 16 97 Nasal Cannula 2.0 28 06/10/18 07:17 Nasal Cannula 2.0 28 Intake and Output 06/10/18 06/11/18 19:00 07:00 Intake Total 1372.667 ml 1057.167 ml Output Total 600 ml Balance 772.667 ml 1057.167 ml Intake Free Water 90 ml 30 ml IV Total 911.667 ml 709.167 ml Tube Feeding 371 ml 318 ml Output Urine Total 600 ml Laboratory Tests 06/11/18 05:10: White Blood Count [Pending], Red Blood Count [Pending], Hemoglobin [Pending], Hematocrit [Pending], Mean Corpuscular Volume [Pending], Mean Corpuscular Hemoglobin [Pending], Mean Corpuscular Hemoglobin Concent [Pending], Red Cell Distribution Width [Pending], Platelet Count [Pending], Mean Platelet Volume [ Pending], Neutrophils (%) (Auto) [Pending], Lymphocytes (%) (Auto) [Pending], Monocytes (%) (Auto) [Pending], Eosinophils (%) (Auto) [Pending], Basophils (%) (Auto) [Pending], Sodium Level [Pending], Potassium Level [Pending], Chloride Level [Pending], Carbon Dioxide Level [Pending], Blood Urea Nitrogen [Pending], Creatinine [Pending], Estimat Glomerular Filtration Rate [Pending], Glucose Level [Pending], Calcium Level [Pending], Phosphorus Level [Pending], Total Bilirubin [Pending], Aspartate Amino Transf (AST/SGOT) [Pending], Alanine Aminotransferase (ALT/SGPT) [Pending], Alkaline Phosphatase [Pending], Total Protein [Pending], Albumin [Pending], Globulin [Pending], Random Vancomycin Level [Pending] Height (Feet): 5 Height (Inches): 7.00 Weight (Pounds): 169 General Appearance: no apparent distress Neck: normal alignment Cardiovascular: normal rate Respiratory/Chest: normal breath sounds Abdomen: normal bowel sounds Objective Current Medications Medications (Trade) Dose Ordered Sig/Dimas Route PRN Reason Start Time Stop Time Status Last Admin Dose Admin Albuterol/ Ipratropium (Albuterol/ Ipratropium) 3 ml Q6HRT HHN 06/07/18 21:30 06/12/18 21:29 06/11/18 00:19 Amlodipine Besylate (Norvasc) 2.5 mg DAILY GT 06/08/18 09:00 07/08/18 08:59 06/10/18 08:48 Aspirin (ASA) 81 mg DAILY GT 06/08/18 09:00 07/08/18 08:59 06/10/18 08:48 Dextrose (Dextrose 50%) 25 ml Q30M PRN IV Hypoglycemia 06/07/18 21:30 07/07/18 21:29 Dextrose (Dextrose 50%) 50 ml Q30M PRN IV Hypoglycemia 06/07/18 21:30 07/07/18 21:29 Docusate Sodium (Colace) 100 mg TID GT 06/09/18 13:00 07/07/18 17:59 06/10/18 17:22 Gabapentin (Neurontin) 300 mg THREE TIMES A DAY GT 06/07/18 23:00 07/07/18 22:59 06/10/18 17:22 Heparin Sodium (Porcine) (Heparin 5000 units/ml) 5,000 units EVERY 12 HOURS SUBQ 06/07/18 21:00 07/07/18 20:59 06/10/18 21:54 Hydralazine HCl (Apresoline) 25 mg Q4H PRN GT SBP > 180mmHg 06/08/18 17:00 07/07/18 21:29 Insulin Aspart (NovoLOG) BEFORE MEALS AND HS SUBQ 06/07/18 22:00 07/07/18 21:59 06/11/18 06:35 Insulin Detemir (Levemir) 20 units EVERY 12 HOURS SUBQ 06/10/18 09:00 07/08/18 09:29 06/10/18 20:25 Lansoprazole (Prevacid) 30 mg BID GT 06/07/18 18:00 07/07/18 17:59 06/10/18 17:22 Nystatin (Nystatin) 5 ml BID GT 06/08/18 09:00 06/15/18 08:59 06/10/18 17:22 Piperacillin Sod/ Tazobactam Sod 3.375 gm/Dextrose 110 ml @ 27.5 mls/hr Q8HR IVPB 06/08/18 01:00 06/15/18 00:59 06/11/18 06:31 Sodium Chloride 1,000 ml @ 75 mls/hr [id number] IV 06/08/18 17:00 07/08/18 16:59 06/10/18 13:00 Vancomycin HCl (Vanco rx to dose) 1 ea DAILY PRN MISC Per rx protocol 06/07/18 21:45 07/07/18 21:44 Cristiano Zuñiga MD Jun 11, 2018 06:45
[2018-06-11 06:57] LABS: BASOPHILS % (AUTO) 1.5 % (0.0-2.0); EOSINOPHILS % (AUTO) 3.4 % (0.0-3.0); HEMATOCRIT 35.5 % (42.0-52.0); HEMOGLOBIN 11.5 G/DL (14.2-18.0); LYMPHOCYTES % (AUTO) 12.2 % (20.0-45.0); MEAN CORPUSCULAR VOLUME 90 FL (80-99); MONOCYTES % (AUTO) 4.7 % (1.0-10.0); NEUTROPHILS % (AUTO) 78.2 % (45.0-75.0); PLATELET COUNT 238 K/UL (150-450); RED BLOOD COUNT 3.94 M/UL (4.70-6.10); RED CELL DISTRIBUTION WIDTH 13.7 % (11.6-14.8); WHITE BLOOD COUNT 8.4 K/UL (4.8-10.8)
--- NOTE | 2018-06-11 07:53 | NUR ---
HAND-OFF: Report given to Maxine sanchez RN.
[2018-06-11 08:00] VITALS: BP 151/70
[2018-06-11 08:02] LABS: ALANINE AMINOTRANSFERASE 15 U/L (12-78); ALBUMIN 2.3 G/DL (3.4-5.0); ALBUMIN/GLOBULIN RATIO 0.5 (1.0-2.7); ALKALINE PHOSPHATASE 99 U/L (46-116); ANION GAP 9 mmol/L (5-15); ASPARTATE AMINO TRANSFERASE 19 U/L (15-37); BILIRUBIN,TOTAL 0.3 MG/DL (0.2-1.0); BLOOD UREA NITROGEN 46 mg/dL (7-18); CALCIUM 9.1 MG/DL (8.5-10.1); CARBON DIOXIDE 31 MMOL/L (21-32); CHLORIDE 102 MMOL/L (98-107); CREATININE 1.5 MG/DL (0.55-1.30); POTASSIUM 4.6 MMOL/L (3.5-5.1); SODIUM 141 MMOL/L (136-145)
--- NOTE | 2018-06-11 08:56 | NUR ---
[facility] PT NOTE CONSULT RECEIVED, MAILE COMPLETED, PATIENT AT BASELINE LEVEL OF FUNCTION. TOTAL ASSIST. NO SKILLED NEEDS, NOT APPROPRIATE FOR PHYSICAL THERAPY. DC TO NURSING STAFF FOR COMFORT AND CARE. KAREN THAPA PT DPT Addendum: 06/11/18 at 0856 by KAREN THAPA PT Amended: Links added.
[2018-06-11] MEDS: Aspirin Baby 81mg GT SCH (09:13)
[2018-06-11] MEDS: Docusate 100mg/10ml Liq GT SCH ×3 (09:13→18:00)
[2018-06-11] MEDS: Gabapentin 300 MG/6 ML Soln GT SCH ×3 (09:13→18:26)
[2018-06-11] MEDS: Nystatin Susp 500,000 units/5ml GT SCH ×2 (09:13→18:26)
[2018-06-11] MEDS: Heparin 5000 units/ml inj SUBQ SCH ×2 (09:14→21:00)
[2018-06-11] MEDS ORDERED: Vancomycin 750mg/NS 275ml IVPB SCH ×2 (10:00)
--- NOTE | 2018-06-11 10:00 | NUR ---
NURSE NOTES: RN changed the sacral wound dressing.
[2018-06-11] MEDS: Levemir Flexpen SUBQ SCH ×2 (10:18→21:41)
[2018-06-11 12:00] VITALS: BP 158/76
--- NOTE | 2018-06-11 12:55 | Infectious Diseases Prog Note ---
Assessment/Plan Assessment/Plan A 1. fever improving 2. + blood cultures with coag neg staph likely contaminated 3. renal failure improving 4. hyperglycemia P 1. Discontinue iv vancomycin, Zosyn 2. start on Rocephin Subjective ROS Limited/Unobtainable: Yes Constitutional: Reports: no symptoms Allergies: Coded Allergies: NO KNOWN DRUG ALLERGIES (Unverified Allergy, Unknown, 05/29/14) Objective Vital Signs Last 24 Hour Vital Signs Date Time Temp Pulse Resp B/P (MAP) Pulse Ox O2 Delivery O2 Flow Rate FiO2 06/11/18 12:00 97.4 81 19 158/76 (103) 97 06/11/18 09:13 80 151/70 06/11/18 09:00 Nasal Cannula 2.0 06/11/18 08:00 97.0 80 21 151/70 (97) 97 06/11/18 07:10 75 16 100 Nasal Cannula 2.0 28 06/11/18 07:00 Nasal Cannula 2.0 28 06/11/18 07:00 92 Nasal Cannula 2.0 28 06/11/18 07:00 75 16 92 Nasal Cannula 2.0 28 06/11/18 04:00 98.5 77 19 155/81 (105) 96 06/11/18 00:30 72 16 99 Nasal Cannula 2.0 28 06/11/18 00:19 68 16 98 Nasal Cannula 2.0 28 06/11/18 00:00 98.8 73 18 141/78 (99) 97 06/10/18 20:40 Nasal Cannula 2.0 06/10/18 20:00 98.9 18 155/84 (107) 96 06/10/18 19:24 86 16 99 Nasal Cannula 2.0 28 06/10/18 19:16 97 Nasal Cannula 2.0 28 06/10/18 19:16 Nasal Cannula 2.0 28 06/10/18 19:14 81 16 97 Nasal Cannula 2.0 28 06/10/18 16:00 98.8 83 17 156/84 (108) 98 Height (Feet): 5 Height (Inches): 7.00 Weight (Pounds): 170 General Appearance: no acute distress HEENT: mucous membranes moist Respiratory/Chest: lungs clear Cardiovascular: normal rate Abdomen: soft, non tender, other - GT feeding Extremities: no edema Neurologic/Psychiatric: aphasia, other - opens eyes Microbiology Date/Time Source Procedure Growth Status 06/08/18 17:16 Nasal Nares Influenza Types A,B Antigen (JETHRO) - Final Complete Laboratory Tests Test 06/11/18 05:10 White Blood Count 8.4 K/UL (4.8-10.8) Red Blood Count 3.94 M/UL (4.70-6.10) L Hemoglobin 11.5 G/DL (14.2-18.0) L Hematocrit 35.5 % (42.0-52.0) L Mean Corpuscular Volume 90 FL (80-99) Mean Corpuscular Hemoglobin 29.2 PG (27.0-31.0) Mean Corpuscular Hemoglobin Concent 32.4 G/DL (32.0-36.0) Red Cell Distribution Width 13.7 % (11.6-14.8) Platelet Count 238 K/UL (150-450) Mean Platelet Volume 7.7 FL (6.5-10.1) Neutrophils (%) (Auto) 78.2 % (45.0-75.0) H Lymphocytes (%) (Auto) 12.2 % (20.0-45.0) L Monocytes (%) (Auto) 4.7 % (1.0-10.0) Eosinophils (%) (Auto) 3.4 % (0.0-3.0) H Basophils (%) (Auto) 1.5 % (0.0-2.0) Sodium Level 141 MMOL/L (136-145) Potassium Level 4.6 MMOL/L (3.5-5.1) Chloride Level 102 MMOL/L (98-107) Carbon Dioxide Level 31 MMOL/L (21-32) Anion Gap 9 mmol/L (5-15) Blood Urea Nitrogen 46 mg/dL (7-18) H Creatinine 1.5 MG/DL (0.55-1.30) H Estimat Glomerular Filtration Rate mL/min (>60) Glucose Level 223 MG/DL (74-106) #H Calcium Level 9.1 MG/DL (8.5-10.1) Phosphorus Level 3.3 MG/DL (2.5-4.9) Total Bilirubin 0.3 MG/DL (0.2-1.0) Aspartate Amino Transf (AST/SGOT) 19 U/L (15-37) Alanine Aminotransferase (ALT/SGPT) 15 U/L (12-78) Alkaline Phosphatase 99 U/L (46-116) Total Protein 7.1 G/DL (6.4-8.2) Albumin 2.3 G/DL (3.4-5.0) L Globulin 4.8 g/dL Albumin/Globulin Ratio 0.5 (1.0-2.7) L Random Vancomycin Level 18.5 ug/mL Current Medications Medications (Trade) Dose Ordered Sig/Dimas Route PRN Reason Start Time Stop Time Status Last Admin Dose Admin Albuterol/ Ipratropium (Albuterol/ Ipratropium) 3 ml Q6HRT HHN 06/07/18 21:30 06/12/18 21:29 06/11/18 07:31 Amlodipine Besylate (Norvasc) 2.5 mg DAILY GT 06/08/18 09:00 07/08/18 08:59 06/11/18 09:13 Aspirin (ASA) 81 mg DAILY GT 06/08/18 09:00 07/08/18 08:59 06/11/18 09:13 Dextrose (Dextrose 50%) 25 ml Q30M PRN IV Hypoglycemia 06/07/18 21:30 07/07/18 21:29 Dextrose (Dextrose 50%) 50 ml Q30M PRN IV Hypoglycemia 06/07/18 21:30 07/07/18 21:29 Docusate Sodium (Colace) 100 mg TID GT 06/09/18 13:00 07/07/18 17:59 06/11/18 12:21 Gabapentin (Neurontin) 300 mg THREE TIMES A DAY GT 06/07/18 23:00 07/07/18 22:59 06/11/18 12:21 Heparin Sodium (Porcine) (Heparin 5000 units/ml) 5,000 units EVERY 12 HOURS SUBQ 06/07/18 21:00 07/07/18 20:59 06/11/18 09:14 Hydralazine HCl (Apresoline) 25 mg Q4H PRN GT SBP > 180mmHg 06/08/18 17:00 07/07/18 21:29 Insulin Aspart (NovoLOG) BEFORE MEALS AND HS SUBQ 06/07/18 22:00 07/07/18 21:59 06/11/18 12:19 Insulin Detemir (Levemir) 24 units EVERY 12 HOURS SUBQ 06/11/18 09:00 07/08/18 09:29 06/11/18 10:18 Lansoprazole (Prevacid) 30 mg BID GT 06/07/18 18:00 07/07/18 17:59 06/11/18 09:13 Nystatin (Nystatin) 5 ml BID GT 06/08/18 09:00 06/15/18 08:59 06/11/18 09:13 Piperacillin Sod/ Tazobactam Sod 3.375 gm/Dextrose 110 ml @ 27.5 mls/hr Q8HR IVPB 06/08/18 01:00 06/15/18 00:59 06/11/18 06:31 Sodium Chloride 1,000 ml @ 75 mls/hr [id number] IV 06/08/18 17:00 07/08/18 16:59 06/11/18 12:11 Vancomycin HCl (Vanco rx to dose) 1 ea DAILY PRN MISC Per rx protocol 06/07/18 21:45 07/07/18 21:44 Roc Devi MD Jun 11, 2018 12:55
--- NOTE | 2018-06-11 14:25 | Pulmonology Progress Note ---
Assessment/Plan Problems: (1) Sepsis (2) Renal failure (ARF), acute on chronic (3) Diabetes (4) Dementia (5) Diabetic nephropathy (6) Feeding by G-tube (7) History of CVA (cerebrovascular accident) Assessment/Plan all reviewed getting better IV fluids iv abx check cultures symptomatic treatment Subjective ROS Limited/Unobtainable: No Constitutional: Reports: no symptoms HEENT: Repors: no symptoms Allergies: Coded Allergies: NO KNOWN DRUG ALLERGIES (Unverified Allergy, Unknown, 05/29/14) Objective Last 24 Hour Vital Signs Date Time Temp Pulse Resp B/P (MAP) Pulse Ox O2 Delivery O2 Flow Rate FiO2 06/11/18 13:55 80 16 94 Nasal Cannula 2.0 28 06/11/18 12:00 97.4 81 19 158/76 (103) 97 06/11/18 09:13 80 151/70 06/11/18 09:00 Nasal Cannula 2.0 06/11/18 08:00 97.0 80 21 151/70 (97) 97 06/11/18 07:10 75 16 100 Nasal Cannula 2.0 28 06/11/18 07:00 Nasal Cannula 2.0 28 06/11/18 07:00 92 Nasal Cannula 2.0 28 06/11/18 07:00 75 16 92 Nasal Cannula 2.0 28 06/11/18 04:00 98.5 77 19 155/81 (105) 96 06/11/18 00:30 72 16 99 Nasal Cannula 2.0 28 06/11/18 00:19 68 16 98 Nasal Cannula 2.0 28 06/11/18 00:00 98.8 73 18 141/78 (99) 97 06/10/18 20:40 Nasal Cannula 2.0 06/10/18 20:00 98.9 18 155/84 (107) 96 06/10/18 19:24 86 16 99 Nasal Cannula 2.0 28 06/10/18 19:16 97 Nasal Cannula 2.0 28 06/10/18 19:16 Nasal Cannula 2.0 28 06/10/18 19:14 81 16 97 Nasal Cannula 2.0 28 06/10/18 16:00 98.8 83 17 156/84 (108) 98 Intake and Output 06/10/18 06/11/18 19:00 07:00 Intake Total 1372.667 ml 1475.167 ml Output Total 600 ml 700 ml Balance 772.667 ml 775.167 ml Intake Free Water 90 ml 130 ml IV Total 911.667 ml 709.167 ml Tube Feeding 371 ml 636 ml Output Urine Total 600 ml 700 ml # Bowel Movements 1 Objective General Appearance: WD/WN, no apparent distress Lines, tubes and drains: peripheral HEENT: normocephalic, atraumatic Neck: non-tender, normal alignment Respiratory/Chest: chest wall non-tender, lungs clear Cardiovascular/Chest: normal peripheral pulses, normal rate Abdomen: normal bowel sounds Extremities: normal range of motion Skin Exam: normal pigmentation 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 Microbiology Date/Time Source Procedure Growth Status 06/08/18 17:16 Nasal Nares Influenza Types A,B Antigen (JETHRO) - Final Complete Laboratory Tests 06/11/18 05:10: White Blood Count 8.4, Red Blood Count 3.94L, Hemoglobin 11.5L, Hematocrit 35.5L , Mean Corpuscular Volume 90, Mean Corpuscular Hemoglobin 29.2, Mean Corpuscular Hemoglobin Concent 32.4, Red Cell Distribution Width 13.7, Platelet Count 238, Mean Platelet Volume 7.7, Neutrophils (%) (Auto) 78.2H, Lymphocytes ( %) (Auto) 12.2L, Monocytes (%) (Auto) 4.7, Eosinophils (%) (Auto) 3.4H, Basophils (%) (Auto) 1.5, Sodium Level 141, Potassium Level 4.6, Chloride Level 102, Carbon Dioxide Level 31, Anion Gap 9, Blood Urea Nitrogen 46H, Creatinine 1.5H, Estimat Glomerular Filtration Rate , Glucose Level 223#H, Calcium Level 9.1, Phosphorus Level 3.3, Total Bilirubin 0.3, Aspartate Amino Transf (AST/SGOT ) 19, Alanine Aminotransferase (ALT/SGPT) 15, Alkaline Phosphatase 99, Total Protein 7.1, Albumin 2.3L, Globulin 4.8, Albumin/Globulin Ratio 0.5L, Random Vancomycin Level 18.5 Current Medications Medications (Trade) Dose Ordered Sig/Dimas Route PRN Reason Start Time Stop Time Status Last Admin Dose Admin Albuterol/ Ipratropium (Albuterol/ Ipratropium) 3 ml Q6HRT HHN 06/07/18 21:30 06/12/18 21:29 06/11/18 13:55 Amlodipine Besylate (Norvasc) 2.5 mg DAILY GT 06/08/18 09:00 07/08/18 08:59 06/11/18 09:13 Aspirin (ASA) 81 mg DAILY GT 06/08/18 09:00 07/08/18 08:59 06/11/18 09:13 Ceftriaxone Sodium 1 gm/ Dextrose 55 ml @ 110 mls/hr Q24H IVPB 06/11/18 15:00 06/18/18 14:59 Dextrose (Dextrose 50%) 25 ml Q30M PRN IV Hypoglycemia 06/07/18 21:30 07/07/18 21:29 Dextrose (Dextrose 50%) 50 ml Q30M PRN IV Hypoglycemia 06/07/18 21:30 07/07/18 21:29 Docusate Sodium (Colace) 100 mg TID GT 06/09/18 13:00 07/07/18 17:59 06/11/18 12:21 Gabapentin (Neurontin) 300 mg THREE TIMES A DAY GT 06/07/18 23:00 07/07/18 22:59 06/11/18 12:21 Heparin Sodium (Porcine) (Heparin 5000 units/ml) 5,000 units EVERY 12 HOURS SUBQ 06/07/18 21:00 07/07/18 20:59 06/11/18 09:14 Hydralazine HCl (Apresoline) 25 mg Q4H PRN GT SBP > 180mmHg 06/08/18 17:00 07/07/18 21:29 Insulin Aspart (NovoLOG) BEFORE MEALS AND HS SUBQ 06/07/18 22:00 07/07/18 21:59 06/11/18 12:19 Insulin Detemir (Levemir) 24 units EVERY 12 HOURS SUBQ 06/11/18 09:00 07/08/18 09:29 06/11/18 10:18 Lansoprazole (Prevacid) 30 mg BID GT 06/07/18 18:00 07/07/18 17:59 06/11/18 09:13 Nystatin (Nystatin) 5 ml BID GT 06/08/18 09:00 06/15/18 08:59 06/11/18 09:13 Sodium Chloride 1,000 ml @ 75 mls/hr [id number] IV 06/08/18 17:00 07/08/18 16:59 06/11/18 12:11 Wang Guzman MD Jun 11, 2018 14:25
--- NOTE | 2018-06-11 14:43 | General Progress Note ---
Assessment/Plan Problem List: (1) Dementia ICD Codes: F03.90 - Unspecified dementia without behavioral disturbance SNOMED: 52660436 (2) Diabetes ICD Codes: E11.9 - Type 2 diabetes mellitus without complications SNOMED: 64621097 (3) HTN (hypertension) ICD Codes: I10 - Essential (primary) hypertension SNOMED: 29086503 (4) Sepsis ICD Codes: A41.9 - Sepsis SNOMED: 37582993 (5) PNA (pneumonia) ICD Codes: J18.9 - Pneumonia, unspecified organism SNOMED: 935615256 Qualifiers: Qualified Codes: J18.9 - Pneumonia, unspecified organism (6) Renal failure (ARF), acute on chronic ICD Codes: N17.9 - Acute kidney failure, unspecified; N18.9 - Chronic kidney disease, unspecified SNOMED: 419343793 Status: stable, progressing Assessment/Plan o2 pulm tx pt diet abx cbc bmp am Subjective Constitutional: Reports: weakness Allergies: Coded Allergies: NO KNOWN DRUG ALLERGIES (Unverified Allergy, Unknown, 05/29/14) All Systems: reviewed and negative except above Subjective o2nc confused Objective Last 24 Hour Vital Signs Date Time Temp Pulse Resp B/P (MAP) Pulse Ox O2 Delivery O2 Flow Rate FiO2 06/11/18 13:55 80 16 94 Nasal Cannula 2.0 28 06/11/18 12:00 97.4 81 19 158/76 (103) 97 06/11/18 09:13 80 151/70 06/11/18 09:00 Nasal Cannula 2.0 06/11/18 08:00 97.0 80 21 151/70 (97) 97 06/11/18 07:10 75 16 100 Nasal Cannula 2.0 28 06/11/18 07:00 Nasal Cannula 2.0 28 06/11/18 07:00 92 Nasal Cannula 2.0 28 06/11/18 07:00 75 16 92 Nasal Cannula 2.0 28 06/11/18 04:00 98.5 77 19 155/81 (105) 96 06/11/18 00:30 72 16 99 Nasal Cannula 2.0 28 06/11/18 00:19 68 16 98 Nasal Cannula 2.0 28 06/11/18 00:00 98.8 73 18 141/78 (99) 97 06/10/18 20:40 Nasal Cannula 2.0 06/10/18 20:00 98.9 18 155/84 (107) 96 06/10/18 19:24 86 16 99 Nasal Cannula 2.0 28 06/10/18 19:16 97 Nasal Cannula 2.0 28 06/10/18 19:16 Nasal Cannula 2.0 28 06/10/18 19:14 81 16 97 Nasal Cannula 2.0 28 06/10/18 16:00 98.8 83 17 156/84 (108) 98 Intake and Output 06/10/18 06/11/18 19:00 07:00 Intake Total 1372.667 ml 1475.167 ml Output Total 600 ml 700 ml Balance 772.667 ml 775.167 ml Intake Free Water 90 ml 130 ml IV Total 911.667 ml 709.167 ml Tube Feeding 371 ml 636 ml Output Urine Total 600 ml 700 ml # Bowel Movements 1 Laboratory Tests 06/11/18 05:10: White Blood Count 8.4, Red Blood Count 3.94L, Hemoglobin 11.5L, Hematocrit 35.5L , Mean Corpuscular Volume 90, Mean Corpuscular Hemoglobin 29.2, Mean Corpuscular Hemoglobin Concent 32.4, Red Cell Distribution Width 13.7, Platelet Count 238, Mean Platelet Volume 7.7, Neutrophils (%) (Auto) 78.2H, Lymphocytes ( %) (Auto) 12.2L, Monocytes (%) (Auto) 4.7, Eosinophils (%) (Auto) 3.4H, Basophils (%) (Auto) 1.5, Sodium Level 141, Potassium Level 4.6, Chloride Level 102, Carbon Dioxide Level 31, Anion Gap 9, Blood Urea Nitrogen 46H, Creatinine 1.5H, Estimat Glomerular Filtration Rate , Glucose Level 223#H, Calcium Level 9.1, Phosphorus Level 3.3, Total Bilirubin 0.3, Aspartate Amino Transf (AST/SGOT ) 19, Alanine Aminotransferase (ALT/SGPT) 15, Alkaline Phosphatase 99, Total Protein 7.1, Albumin 2.3L, Globulin 4.8, Albumin/Globulin Ratio 0.5L, Random Vancomycin Level 18.5 Height (Feet): 5 Height (Inches): 7.00 Weight (Pounds): 170 General Appearance: lethargic EENT: normal ENT inspection Neck: normal alignment Cardiovascular: normal peripheral pulses, normal rate, regular rhythm Respiratory/Chest: chest wall non-tender, lungs clear, normal breath sounds Abdomen: normal bowel sounds, non tender, soft Extremities: normal inspection Edema: no edema noted Arm (L), no edema noted Arm (R), no edema noted Leg (L), no edema noted Leg (R), no edema noted Pedal (L), no edema noted Pedal (R), no edema noted Generalized Neurologic: motor weakness Skin: normal pigmentation, warm/dry Remberto Joe DO Jun 11, 2018 14:43
--- NOTE | 2018-06-11 15:04 | Nephrology Progress Note ---
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 DM OOC Diabetic Nephropathy Proteinuria and HypoAlbuminemia High Ca likely dehydration Plan trial of Aredia Hydrate Antibiotics Per ID Monitor renal parameters Urine studies adjust electrolytes Subjective ROS Limited/Unobtainable: No Constitutional: Reports: malaise, weakness Objective Objective Last 24 Hour Vital Signs Date Time Temp Pulse Resp B/P (MAP) Pulse Ox O2 Delivery O2 Flow Rate FiO2 06/11/18 13:55 80 16 94 Nasal Cannula 2.0 28 06/11/18 12:00 97.4 81 19 158/76 (103) 97 06/11/18 09:13 80 151/70 06/11/18 09:00 Nasal Cannula 2.0 06/11/18 08:00 97.0 80 21 151/70 (97) 97 06/11/18 07:10 75 16 100 Nasal Cannula 2.0 28 06/11/18 07:00 Nasal Cannula 2.0 28 06/11/18 07:00 92 Nasal Cannula 2.0 28 06/11/18 07:00 75 16 92 Nasal Cannula 2.0 28 06/11/18 04:00 98.5 77 19 155/81 (105) 96 06/11/18 00:30 72 16 99 Nasal Cannula 2.0 28 06/11/18 00:19 68 16 98 Nasal Cannula 2.0 28 06/11/18 00:00 98.8 73 18 141/78 (99) 97 06/10/18 20:40 Nasal Cannula 2.0 06/10/18 20:00 98.9 18 155/84 (107) 96 06/10/18 19:24 86 16 99 Nasal Cannula 2.0 28 06/10/18 19:16 97 Nasal Cannula 2.0 28 06/10/18 19:16 Nasal Cannula 2.0 28 06/10/18 19:14 81 16 97 Nasal Cannula 2.0 28 06/10/18 16:00 98.8 83 17 156/84 (108) 98 Intake and Output 06/10/18 06/11/18 19:00 07:00 Intake Total 1372.667 ml 1475.167 ml Output Total 600 ml 700 ml Balance 772.667 ml 775.167 ml Intake Free Water 90 ml 130 ml IV Total 911.667 ml 709.167 ml Tube Feeding 371 ml 636 ml Output Urine Total 600 ml 700 ml # Bowel Movements 1 Laboratory Tests 06/11/18 05:10: White Blood Count 8.4, Red Blood Count 3.94L, Hemoglobin 11.5L, Hematocrit 35.5L , Mean Corpuscular Volume 90, Mean Corpuscular Hemoglobin 29.2, Mean Corpuscular Hemoglobin Concent 32.4, Red Cell Distribution Width 13.7, Platelet Count 238, Mean Platelet Volume 7.7, Neutrophils (%) (Auto) 78.2H, Lymphocytes ( %) (Auto) 12.2L, Monocytes (%) (Auto) 4.7, Eosinophils (%) (Auto) 3.4H, Basophils (%) (Auto) 1.5, Sodium Level 141, Potassium Level 4.6, Chloride Level 102, Carbon Dioxide Level 31, Anion Gap 9, Blood Urea Nitrogen 46H, Creatinine 1.5H, Estimat Glomerular Filtration Rate , Glucose Level 223#H, Calcium Level 9.1, Phosphorus Level 3.3, Total Bilirubin 0.3, Aspartate Amino Transf (AST/SGOT ) 19, Alanine Aminotransferase (ALT/SGPT) 15, Alkaline Phosphatase 99, Total Protein 7.1, Albumin 2.3L, Globulin 4.8, Albumin/Globulin Ratio 0.5L, Random Vancomycin Level 18.5 Height (Feet): 5 Height (Inches): 7.00 Weight (Pounds): 170 General Appearance: no apparent distress Cardiovascular: normal rate Respiratory/Chest: decreased breath sounds Abdomen: soft Hansel Kirkpatrick MD Jun 11, 2018 15:04
[2018-06-11 16:00] VITALS: BP 140/70
[2018-06-11] MEDS: cefTRIAXone 1 GM in D5W 55 ML IVPB SCH (16:09)
--- NOTE | 2018-06-11 17:01 | Cardiac Electrophysiology PN ---
Assessment/Plan Assessment/Plan 1. Troponin elevation, could be due to renal failure. The creatinine of the patient was 1.9. The patient is nonverbal. Echocardiogram EF 55% ECG no ST elevation 2. Hypertension. The patient is on amlodipine 2.5 mg daily, 3. Dysphagia, status post PEG placement. 4. Fever and sepsis on broad-spectrum IV antibiotics. 5. Renal failure.Creatinine down to 1.5 6. Diabetes, uncontrolled. VENESSA RN Subjective Subjective No events. On NMB. Comfortable. GT feeding ongoing Objective Last 24 Hour Vital Signs Date Time Temp Pulse Resp B/P (MAP) Pulse Ox O2 Delivery O2 Flow Rate FiO2 06/11/18 13:55 80 16 94 Nasal Cannula 2.0 28 06/11/18 12:00 97.4 81 19 158/76 (103) 97 06/11/18 09:13 80 151/70 06/11/18 09:00 Nasal Cannula 2.0 06/11/18 08:00 97.0 80 21 151/70 (97) 97 06/11/18 07:10 75 16 100 Nasal Cannula 2.0 28 06/11/18 07:00 Nasal Cannula 2.0 28 06/11/18 07:00 92 Nasal Cannula 2.0 28 06/11/18 07:00 75 16 92 Nasal Cannula 2.0 28 06/11/18 04:00 98.5 77 19 155/81 (105) 96 06/11/18 00:30 72 16 99 Nasal Cannula 2.0 28 06/11/18 00:19 68 16 98 Nasal Cannula 2.0 28 06/11/18 00:00 98.8 73 18 141/78 (99) 97 06/10/18 20:40 Nasal Cannula 2.0 06/10/18 20:00 98.9 18 155/84 (107) 96 06/10/18 19:24 86 16 99 Nasal Cannula 2.0 28 06/10/18 19:16 97 Nasal Cannula 2.0 28 06/10/18 19:16 Nasal Cannula 2.0 28 06/10/18 19:14 81 16 97 Nasal Cannula 2.0 28 Intake and Output 06/10/18 06/11/18 19:00 07:00 Intake Total 1372.667 ml 1475.167 ml Output Total 600 ml 700 ml Balance 772.667 ml 775.167 ml Intake Free Water 90 ml 130 ml IV Total 911.667 ml 709.167 ml Tube Feeding 371 ml 636 ml Output Urine Total 600 ml 700 ml # Bowel Movements 1 Laboratory Tests Test 06/11/18 05:10 White Blood Count 8.4 K/UL (4.8-10.8) Red Blood Count 3.94 M/UL (4.70-6.10) L Hemoglobin 11.5 G/DL (14.2-18.0) L Hematocrit 35.5 % (42.0-52.0) L Mean Corpuscular Volume 90 FL (80-99) Mean Corpuscular Hemoglobin 29.2 PG (27.0-31.0) Mean Corpuscular Hemoglobin Concent 32.4 G/DL (32.0-36.0) Red Cell Distribution Width 13.7 % (11.6-14.8) Platelet Count 238 K/UL (150-450) Mean Platelet Volume 7.7 FL (6.5-10.1) Neutrophils (%) (Auto) 78.2 % (45.0-75.0) H Lymphocytes (%) (Auto) 12.2 % (20.0-45.0) L Monocytes (%) (Auto) 4.7 % (1.0-10.0) Eosinophils (%) (Auto) 3.4 % (0.0-3.0) H Basophils (%) (Auto) 1.5 % (0.0-2.0) Sodium Level 141 MMOL/L (136-145) Potassium Level 4.6 MMOL/L (3.5-5.1) Chloride Level 102 MMOL/L (98-107) Carbon Dioxide Level 31 MMOL/L (21-32) Anion Gap 9 mmol/L (5-15) Blood Urea Nitrogen 46 mg/dL (7-18) H Creatinine 1.5 MG/DL (0.55-1.30) H Estimat Glomerular Filtration Rate mL/min (>60) Glucose Level 223 MG/DL (74-106) #H Calcium Level 9.1 MG/DL (8.5-10.1) Phosphorus Level 3.3 MG/DL (2.5-4.9) Total Bilirubin 0.3 MG/DL (0.2-1.0) Aspartate Amino Transf (AST/SGOT) 19 U/L (15-37) Alanine Aminotransferase (ALT/SGPT) 15 U/L (12-78) Alkaline Phosphatase 99 U/L (46-116) Total Protein 7.1 G/DL (6.4-8.2) Albumin 2.3 G/DL (3.4-5.0) L Globulin 4.8 g/dL Albumin/Globulin Ratio 0.5 (1.0-2.7) L Random Vancomycin Level 18.5 ug/mL Microbiology Date/Time Source Procedure Growth Status 06/08/18 17:16 Nasal Nares Influenza Types A,B Antigen (JETHRO) - Final Complete Objective HEAD AND NECK: No JVD. LUNGS: Coarse rhonchi. CARDIOVASCULAR: Regular S1 and S2 with no gallop. ABDOMEN: Status post G-tube. EXTREMITIES: 1+ pitting edema. Gold Birmingham MD Jun 11, 2018 17:01
--- NOTE | 2018-06-11 18:37 | NUR ---
NURSE NOTES: Patient had 2 times of loose bowel movement.Held stool softner.
--- NOTE | 2018-06-11 19:33 | NUR ---
HAND-OFF: Report given to Peewee GANNON.
--- NOTE | 2018-06-11 19:34 | NUR ---
CASE MANAGEMENT: REVIEW SI: RENAL FAILURE . MULTIPLE WOUNDS . DIABETIC NEPHROPATHY T 97.0 HR 80 RR 21 BP 158/76 SAT 94% NC/2L H/H 11.5/35.5 BUN 46 CR 1.5 TROPONIN I 0.071 GLUCOSE 223 IS: CEFTRIAXONE IV Q24HR LEVEMIR SQ Q12HR NS IVF @75ML/HR MED/SURG STATUS DCP: PATIENT IS FROM [facility]
--- NOTE | 2018-06-11 19:55 | NUR ---
NURSE NOTES: Pt received resting supine. Bed locked in lowest position. Side rails up x3. Pt has flat affect and is nonverbal. Occasional moans. GTube in place, feeding infusing at 53 ml/h. IV site patent. Pt on special bed. Holliday catheter in place, draining. Bed alarm.on
[2018-06-11 20:00] VITALS: BP 148/76
[2018-06-12] VITALS: BP 122/67
[2018-06-12] MEDS: Albuterol/Ipratropium 3ml neb HHN SCH ×4 (01:23→20:59)
[2018-06-12 04:00] VITALS: BP 119/79
[2018-06-12] MEDS: NovoLOG Insulin Flexpen SUBQ SCH ×4 (06:18→21:06)
--- NOTE | 2018-06-12 06:53 | General Progress Note ---
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 SNOMED: 349096934 (2) Dementia ICD Codes: F03.90 - Unspecified dementia without behavioral disturbance SNOMED: 05079355 Assessment/Plan increase Levemir to 26 units bid continue NISS Subjective ROS Limited/Unobtainable: Yes Allergies: Coded Allergies: NO KNOWN DRUG ALLERGIES (Unverified Allergy, Unknown, 05/29/14) Subjective events noted Item Value Date Time Bedside Blood Glucose 207 mg/dl H 06/12/18 0618 Bedside Blood Glucose 173 mg/dl H 06/11/18 2141 Bedside Blood Glucose 175 mg/dl H 06/11/18 1630 Bedside Blood Glucose 146 mg/dl H 06/11/18 1219 Bedside Blood Glucose 187 mg/dl H 06/11/18 1018 Bedside Blood Glucose 220 mg/dl H 06/11/18 0635 Objective Last 24 Hour Vital Signs Date Time Temp Pulse Resp B/P (MAP) Pulse Ox O2 Delivery O2 Flow Rate FiO2 06/12/18 04:00 98.2 85 18 119/79 (92) 97 06/12/18 01:33 76 18 100 Nasal Cannula 2.0 28 06/12/18 01:23 75 18 96 Nasal Cannula 2.0 28 06/12/18 00:00 98.0 81 18 122/67 (85) 97 06/11/18 21:00 Nasal Cannula 2.0 06/11/18 20:00 98.5 90 18 148/76 (100) 97 06/11/18 19:49 71 16 100 Nasal Cannula 2.0 28 06/11/18 19:39 78 16 93 Nasal Cannula 2.0 28 06/11/18 19:39 Nasal Cannula 2.0 28 06/11/18 19:39 94 Nasal Cannula 2.0 28 06/11/18 16:00 98.3 69 18 140/70 (93) 97 06/11/18 14:05 82 18 99 Nasal Cannula 2.0 28 06/11/18 13:55 80 16 94 Nasal Cannula 2.0 28 06/11/18 12:00 97.4 81 19 158/76 (103) 97 06/11/18 09:13 80 151/70 06/11/18 09:00 Nasal Cannula 2.0 06/11/18 08:00 97.0 80 21 151/70 (97) 97 06/11/18 07:10 75 16 100 Nasal Cannula 2.0 28 06/11/18 07:00 Nasal Cannula 2.0 28 06/11/18 07:00 92 Nasal Cannula 2.0 28 06/11/18 07:00 75 16 92 Nasal Cannula 2.0 28 Intake and Output 06/11/18 06/12/18 19:00 07:00 Intake Total 966 ml 1037 ml Output Total 800 ml Balance 166 ml 1037 ml Intake Free Water 90 ml 50 ml IV Total 505 ml 775 ml Tube Feeding 371 ml 212 ml Output Urine Total 800 ml # Bowel Movements 2 Height (Feet): 5 Height (Inches): 7.00 Weight (Pounds): 170 General Appearance: no apparent distress Neck: normal alignment Cardiovascular: normal rate Respiratory/Chest: lungs clear Abdomen: normal bowel sounds Objective Current Medications Medications (Trade) Dose Ordered Sig/Dimas Route PRN Reason Start Time Stop Time Status Last Admin Dose Admin Albuterol/ Ipratropium (Albuterol/ Ipratropium) 3 ml Q6HRT HHN 06/07/18 21:30 06/12/18 21:29 06/12/18 01:23 Amlodipine Besylate (Norvasc) 2.5 mg DAILY GT 06/08/18 09:00 07/08/18 08:59 06/11/18 09:13 Aspirin (ASA) 81 mg DAILY GT 06/08/18 09:00 07/08/18 08:59 06/11/18 09:13 Ceftriaxone Sodium 1 gm/ Dextrose 55 ml @ 110 mls/hr Q24H IVPB 06/11/18 15:00 06/18/18 14:59 06/11/18 16:09 Dextrose (Dextrose 50%) 25 ml Q30M PRN IV Hypoglycemia 06/07/18 21:30 07/07/18 21:29 Dextrose (Dextrose 50%) 50 ml Q30M PRN IV Hypoglycemia 06/07/18 21:30 07/07/18 21:29 Docusate Sodium (Colace) 100 mg TID GT 06/09/18 13:00 07/07/18 17:59 06/11/18 12:21 Gabapentin (Neurontin) 300 mg THREE TIMES A DAY GT 06/07/18 23:00 07/07/18 22:59 06/11/18 18:26 Heparin Sodium (Porcine) (Heparin 5000 units/ml) 5,000 units EVERY 12 HOURS SUBQ 06/07/18 21:00 07/07/18 20:59 06/11/18 21:00 Hydralazine HCl (Apresoline) 25 mg Q4H PRN GT SBP > 180mmHg 06/08/18 17:00 07/07/18 21:29 Insulin Aspart (NovoLOG) BEFORE MEALS AND HS SUBQ 06/07/18 22:00 07/07/18 21:59 06/12/18 06:18 Insulin Detemir (Levemir) 24 units EVERY 12 HOURS SUBQ 06/11/18 09:00 07/08/18 09:29 06/11/18 21:41 Lansoprazole (Prevacid) 30 mg BID GT 06/07/18 18:00 07/07/18 17:59 06/11/18 18:26 Nystatin (Nystatin) 5 ml BID GT 06/08/18 09:00 06/15/18 08:59 06/11/18 18:26 Sodium Chloride 1,000 ml @ 75 mls/hr [id number] IV 06/08/18 17:00 07/08/18 16:59 06/12/18 02:15 Cristiano Zuñiga MD Jun 12, 2018 06:53
--- NOTE | 2018-06-12 07:33 | NUR ---
HAND-OFF: Report given to Clinton Claire.
[2018-06-12 08:00] VITALS: BP 160/84
--- NOTE | 2018-06-12 08:01 | NUR ---
NURSE NOTES: Received patient from Gilda GANNON, patient is resting in bed, comfortable, call light within reach, bed is locked and in lowest position, no distress noted, will continue to monitor.
[2018-06-12 08:05] LABS: BASOPHILS % (AUTO) 1.9 % (0.0-2.0); EOSINOPHILS % (AUTO) 4.3 % (0.0-3.0); HEMATOCRIT 35.4 % (42.0-52.0); HEMOGLOBIN 11.5 G/DL (14.2-18.0); LYMPHOCYTES % (AUTO) 15.8 % (20.0-45.0); MEAN CORPUSCULAR VOLUME 90 FL (80-99); NEUTROPHILS % (AUTO) 71.9 % (45.0-75.0); PLATELET COUNT 229 K/UL (150-450); RED BLOOD COUNT 3.92 M/UL (4.70-6.10); RED CELL DISTRIBUTION WIDTH 14.1 % (11.6-14.8); WHITE BLOOD COUNT 6.4 K/UL (4.8-10.8)
[2018-06-12 08:40] LABS: BLOOD UREA NITROGEN 44 mg/dL (7-18); CALCIUM 8.6 MG/DL (8.5-10.1); CHLORIDE 102 MMOL/L (98-107); CREATININE 1.4 MG/DL (0.55-1.30); POTASSIUM 4.5 MMOL/L (3.5-5.1); SODIUM 140 MMOL/L (136-145)
[2018-06-12 08:50] LABS: CARBON DIOXIDE 32 MMOL/L (21-32)
[2018-06-12 08:52] LABS: ANION GAP 6 mmol/L (5-15)
[2018-06-12] MEDS: Nystatin Susp 500,000 units/5ml GT SCH ×2 (08:58→17:42)
[2018-06-12] MEDS: Docusate 100mg/10ml Liq GT SCH ×3 (08:58→17:42)
[2018-06-12] MEDS: Aspirin Baby 81mg GT SCH (08:58)
[2018-06-12] MEDS: Gabapentin 300 MG/6 ML Soln GT SCH ×3 (08:58→17:43)
[2018-06-12] MEDS: Heparin 5000 units/ml inj SUBQ SCH ×2 (09:21→21:05)
[2018-06-12] MEDS: Levemir Flexpen SUBQ SCH ×2 (09:50→21:05)
[2018-06-12 12:00] VITALS: BP 128/54
--- NOTE | 2018-06-12 13:38 | Pulmonology Progress Note ---
Assessment/Plan Problems: (1) Sepsis (2) Renal failure (ARF), acute on chronic (3) Diabetes (4) Dementia (5) Diabetic nephropathy (6) Feeding by G-tube (7) History of CVA (cerebrovascular accident) Assessment/Plan getting better IV fluids iv abx check cultures symptomatic treatment dvt prophylaxis Subjective ROS Limited/Unobtainable: Yes Allergies: Coded Allergies: NO KNOWN DRUG ALLERGIES (Unverified Allergy, Unknown, 05/29/14) Objective Last 24 Hour Vital Signs Date Time Temp Pulse Resp B/P (MAP) Pulse Ox O2 Delivery O2 Flow Rate FiO2 06/12/18 12:00 98.2 73 20 128/54 (78) 94 06/12/18 08:59 84 160/84 06/12/18 08:29 82 18 Nasal Cannula 2.0 28 06/12/18 08:28 77 18 99 Nasal Cannula 2.0 28 06/12/18 08:15 Nasal Cannula 2.0 06/12/18 08:10 Nasal Cannula 2.0 28 06/12/18 08:10 95 Nasal Cannula 2.0 28 06/12/18 08:09 83 18 95 Nasal Cannula 2.0 28 06/12/18 08:00 97.1 84 20 160/84 (109) 95 06/12/18 04:00 98.2 85 18 119/79 (92) 97 06/12/18 01:33 76 18 100 Nasal Cannula 2.0 28 06/12/18 01:23 75 18 96 Nasal Cannula 2.0 28 06/12/18 00:00 98.0 81 18 122/67 (85) 97 06/11/18 21:00 Nasal Cannula 2.0 06/11/18 20:00 98.5 90 18 148/76 (100) 97 06/11/18 19:49 71 16 100 Nasal Cannula 2.0 28 06/11/18 19:39 78 16 93 Nasal Cannula 2.0 28 06/11/18 19:39 Nasal Cannula 2.0 28 06/11/18 19:39 94 Nasal Cannula 2.0 28 06/11/18 16:00 98.3 69 18 140/70 (93) 97 06/11/18 14:05 82 18 99 Nasal Cannula 2.0 28 06/11/18 13:55 80 16 94 Nasal Cannula 2.0 28 Intake and Output 06/11/18 06/12/18 19:00 07:00 Intake Total 966 ml 1513 ml Output Total 800 ml 1100 ml Balance 166 ml 413 ml Intake Free Water 90 ml 80 ml IV Total 505 ml 850 ml Tube Feeding 371 ml 583 ml Output Urine Total 800 ml 1100 ml # Bowel Movements 2 2 Objective General Appearance: WD/WN, no apparent distress Lines, tubes and drains: peripheral HEENT: normocephalic, atraumatic Neck: non-tender, normal alignment Respiratory/Chest: chest wall non-tender, lungs clear Cardiovascular/Chest: normal peripheral pulses, normal rate Abdomen: normal bowel sounds Extremities: normal range of motion Skin Exam: normal pigmentation Neurologic: box stapler II-XII grossly normal Laboratory Tests 06/12/18 07:11: White Blood Count 6.4, Red Blood Count 3.92L, Hemoglobin 11.5L, Hematocrit 35.4L , Mean Corpuscular Volume 90, Mean Corpuscular Hemoglobin 29.5, Mean Corpuscular Hemoglobin Concent 32.6, Red Cell Distribution Width 14.1, Platelet Count 229, Mean Platelet Volume 7.7, Neutrophils (%) (Auto) 71.9, Lymphocytes (% ) (Auto) 15.8L, Monocytes (%) (Auto) 6.0, Eosinophils (%) (Auto) 4.3H, Basophils (%) (Auto) 1.9, Sodium Level 140, Potassium Level 4.5, Chloride Level 102, Carbon Dioxide Level 32, Anion Gap 6, Blood Urea Nitrogen 44H, Creatinine 1.4H, Estimat Glomerular Filtration Rate , Glucose Level 212H, Calcium Level 8.6 Current Medications Medications (Trade) Dose Ordered Sig/Dimas Route PRN Reason Start Time Stop Time Status Last Admin Dose Admin Albuterol/ Ipratropium (Albuterol/ Ipratropium) 3 ml Q6HRT HHN 06/07/18 21:30 06/12/18 21:29 06/12/18 13:24 Amlodipine Besylate (Norvasc) 2.5 mg DAILY GT 06/08/18 09:00 07/08/18 08:59 06/12/18 08:59 Aspirin (ASA) 81 mg DAILY GT 06/08/18 09:00 07/08/18 08:59 06/12/18 08:58 Ceftriaxone Sodium 1 gm/ Dextrose 55 ml @ 110 mls/hr Q24H IVPB 2/20/19 15:00 06/18/18 14:59 06/11/18 16:09 Dextrose (Dextrose 50%) 25 ml Q30M PRN IV Hypoglycemia 06/07/18 21:30 07/07/18 21:29 Dextrose (Dextrose 50%) 50 ml Q30M PRN IV Hypoglycemia 06/07/18 21:30 07/07/18 21:29 Docusate Sodium (Colace) 100 mg TID GT 06/09/18 13:00 07/07/18 17:59 06/12/18 13:09 Gabapentin (Neurontin) 300 mg THREE TIMES A DAY GT 06/07/18 23:00 07/07/18 22:59 06/12/18 13:09 Heparin Sodium (Porcine) (Heparin 5000 units/ml) 5,000 units EVERY 12 HOURS SUBQ 06/07/18 21:00 07/07/18 20:59 06/12/18 09:21 Hydralazine HCl (Apresoline) 25 mg Q4H PRN GT SBP > 180mmHg 06/08/18 17:00 07/07/18 21:29 Insulin Aspart (NovoLOG) BEFORE MEALS AND HS SUBQ 06/07/18 22:00 07/07/18 21:59 06/12/18 13:10 Insulin Detemir (Levemir) 26 units EVERY 12 HOURS SUBQ 06/12/18 09:00 07/08/18 09:29 06/12/18 09:50 Lansoprazole (Prevacid) 30 mg BID GT 06/07/18 18:00 07/07/18 17:59 06/12/18 08:58 Nystatin (Nystatin) 5 ml BID GT 06/08/18 09:00 06/15/18 08:59 06/12/18 08:58 Sodium Chloride 1,000 ml @ 75 mls/hr [id number] IV 06/08/18 17:00 07/08/18 16:59 06/12/18 02:15 Wang Guzman MD Jun 12, 2018 13:38
[2018-06-12] MEDS: cefTRIAXone 1 GM in D5W 55 ML IVPB SCH (14:31)
--- NOTE | 2018-06-12 14:38 | Surgery Progress Note ---
Surgery Progress Note Subjective Additional Comments no acute events. improving. Objective Last 24 Hour Vital Signs Date Time Temp Pulse Resp B/P (MAP) Pulse Ox O2 Delivery O2 Flow Rate FiO2 06/12/18 12:00 98.2 73 20 128/54 (78) 94 06/12/18 08:59 84 160/84 06/12/18 08:29 82 18 Nasal Cannula 2.0 28 06/12/18 08:28 77 18 99 Nasal Cannula 2.0 28 06/12/18 08:15 Nasal Cannula 2.0 06/12/18 08:10 Nasal Cannula 2.0 28 06/12/18 08:10 95 Nasal Cannula 2.0 28 06/12/18 08:09 83 18 95 Nasal Cannula 2.0 28 06/12/18 08:00 97.1 84 20 160/84 (109) 95 06/12/18 04:00 98.2 85 18 119/79 (92) 97 06/12/18 01:33 76 18 100 Nasal Cannula 2.0 28 06/12/18 01:23 75 18 96 Nasal Cannula 2.0 28 06/12/18 00:00 98.0 81 18 122/67 (85) 97 06/11/18 21:00 Nasal Cannula 2.0 06/11/18 20:00 98.5 90 18 148/76 (100) 97 06/11/18 19:49 71 16 100 Nasal Cannula 2.0 28 06/11/18 19:39 78 16 93 Nasal Cannula 2.0 28 06/11/18 19:39 Nasal Cannula 2.0 28 06/11/18 19:39 94 Nasal Cannula 2.0 28 06/11/18 16:00 98.3 69 18 140/70 (93) 97 I&O Intake and Output 06/11/18 06/12/18 19:00 07:00 Intake Total 966 ml 1513 ml Output Total 800 ml 1100 ml Balance 166 ml 413 ml Intake Free Water 90 ml 80 ml IV Total 505 ml 850 ml Tube Feeding 371 ml 583 ml Output Urine Total 800 ml 1100 ml # Bowel Movements 2 2 Dressing: other Wound: other Drains: other Cardiovascular: RSR Respiratory: clear, decreased breath sounds Abdomen: soft, present bowel sounds, non-distended Extremities: other Laboratory Tests Test 06/12/18 07:11 White Blood Count 6.4 K/UL (4.8-10.8) Red Blood Count 3.92 M/UL (4.70-6.10) L Hemoglobin 11.5 G/DL (14.2-18.0) L Hematocrit 35.4 % (42.0-52.0) L Mean Corpuscular Volume 90 FL (80-99) Mean Corpuscular Hemoglobin 29.5 PG (27.0-31.0) Mean Corpuscular Hemoglobin Concent 32.6 G/DL (32.0-36.0) Red Cell Distribution Width 14.1 % (11.6-14.8) Platelet Count 229 K/UL (150-450) Mean Platelet Volume 7.7 FL (6.5-10.1) Neutrophils (%) (Auto) 71.9 % (45.0-75.0) Lymphocytes (%) (Auto) 15.8 % (20.0-45.0) L Monocytes (%) (Auto) 6.0 % (1.0-10.0) Eosinophils (%) (Auto) 4.3 % (0.0-3.0) H Basophils (%) (Auto) 1.9 % (0.0-2.0) Sodium Level 140 MMOL/L (136-145) Potassium Level 4.5 MMOL/L (3.5-5.1) Chloride Level 102 MMOL/L (98-107) Carbon Dioxide Level 32 MMOL/L (21-32) Anion Gap 6 mmol/L (5-15) Blood Urea Nitrogen 44 mg/dL (7-18) H Creatinine 1.4 MG/DL (0.55-1.30) H Estimat Glomerular Filtration Rate mL/min (>60) Glucose Level 212 MG/DL (74-106) H Calcium Level 8.6 MG/DL (8.5-10.1) Plan Problems: (1) Multiple wounds Assessment & Plan: Pt presents with multiple pressure injuries present on admission. Full thickness pressure injury cleft of R ear.Wound viable with small amt sanguineous exudate noted. Periwound erythema noted.(L)0.7cm x (W)0.4cm x (D) 0.4cm. Full thickness pressure injury Sacrum with trace amt Biofilm easily removed with gentle friction.Wound bed otherwisw viable .Edges macerated.Erythema without induration periwound.No odor noted(L)1.6cm W()2.3cm x(D)0.2cm. Partial thickness wound lateral R tibia .base of wound moist and viable .(+) maceration with dark discoloration along edges .No odor noted. (L)1cm x (W) 0.8cm. Both heels are pink,firm and easily blanchable. Tx.Plan: Cleanse R ear with saline. Apply Silvasorb gel.Cover with Drsg.Change every 3 days and prn. Cleanse Sacrum with Saline.Apply Hydrogel.Cavilon Skin Barrier along edges and periwound.Cover with Optifoam Drsg.Change Daily and prn. Cleanse wound lateral R tibia with Saline.Apply Silvasorb Gel. Cavilon Skin Barrier periwound.Change every 3 days and prn. Apply Cavilon Skin Barrier R ear Daily APM/ASHLEY Mattress. Reposition at least every 2 hours or as tolerated. Off-load heels with pillow. Steven Olmos Jun 12, 2018 14:38
--- NOTE | 2018-06-12 14:58 | Infectious Diseases Prog Note ---
Assessment/Plan Assessment/Plan A 1. fever resplved 2. + blood cultures with coag neg staph likely contaminated 3. renal failure improving 4. hyperglycemia 5. VRE colonization P 1. continue Rocephin Subjective ROS Limited/Unobtainable: Yes Allergies: Coded Allergies: NO KNOWN DRUG ALLERGIES (Unverified Allergy, Unknown, 05/29/14) Objective Vital Signs Last 24 Hour Vital Signs Date Time Temp Pulse Resp B/P (MAP) Pulse Ox O2 Delivery O2 Flow Rate FiO2 06/12/18 12:00 98.2 73 20 128/54 (78) 94 06/12/18 08:59 84 160/84 06/12/18 08:29 82 18 Nasal Cannula 2.0 28 06/12/18 08:28 77 18 99 Nasal Cannula 2.0 28 06/12/18 08:15 Nasal Cannula 2.0 06/12/18 08:10 Nasal Cannula 2.0 28 06/12/18 08:10 95 Nasal Cannula 2.0 28 06/12/18 08:09 83 18 95 Nasal Cannula 2.0 28 06/12/18 08:00 97.1 84 20 160/84 (109) 95 06/12/18 04:00 98.2 85 18 119/79 (92) 97 06/12/18 01:33 76 18 100 Nasal Cannula 2.0 28 06/12/18 01:23 75 18 96 Nasal Cannula 2.0 28 06/12/18 00:00 98.0 81 18 122/67 (85) 97 06/11/18 21:00 Nasal Cannula 2.0 06/11/18 20:00 98.5 90 18 148/76 (100) 97 06/11/18 19:49 71 16 100 Nasal Cannula 2.0 28 06/11/18 19:39 78 16 93 Nasal Cannula 2.0 28 06/11/18 19:39 Nasal Cannula 2.0 28 06/11/18 19:39 94 Nasal Cannula 2.0 28 06/11/18 16:00 98.3 69 18 140/70 (93) 97 Height (Feet): 5 Height (Inches): 7.00 Weight (Pounds): 170 General Appearance: no acute distress HEENT: mucous membranes moist Respiratory/Chest: lungs clear Cardiovascular: normal rate Abdomen: soft, non tender, other - GT feeding Skin: ulcers Neurologic/Psychiatric: aphasia Laboratory Tests Test 2/21/19 07:11 White Blood Count 6.4 K/UL (4.8-10.8) Red Blood Count 3.92 M/UL (4.70-6.10) L Hemoglobin 11.5 G/DL (14.2-18.0) L Hematocrit 35.4 % (42.0-52.0) L Mean Corpuscular Volume 90 FL (80-99) Mean Corpuscular Hemoglobin 29.5 PG (27.0-31.0) Mean Corpuscular Hemoglobin Concent 32.6 G/DL (32.0-36.0) Red Cell Distribution Width 14.1 % (11.6-14.8) Platelet Count 229 K/UL (150-450) Mean Platelet Volume 7.7 FL (6.5-10.1) Neutrophils (%) (Auto) 71.9 % (45.0-75.0) Lymphocytes (%) (Auto) 15.8 % (20.0-45.0) L Monocytes (%) (Auto) 6.0 % (1.0-10.0) Eosinophils (%) (Auto) 4.3 % (0.0-3.0) H Basophils (%) (Auto) 1.9 % (0.0-2.0) Sodium Level 140 MMOL/L (136-145) Potassium Level 4.5 MMOL/L (3.5-5.1) Chloride Level 102 MMOL/L (98-107) Carbon Dioxide Level 32 MMOL/L (21-32) Anion Gap 6 mmol/L (5-15) Blood Urea Nitrogen 44 mg/dL (7-18) H Creatinine 1.4 MG/DL (0.55-1.30) H Estimat Glomerular Filtration Rate mL/min (>60) Glucose Level 212 MG/DL (74-106) H Calcium Level 8.6 MG/DL (8.5-10.1) Current Medications Medications (Trade) Dose Ordered Sig/Dimas Route PRN Reason Start Time Stop Time Status Last Admin Dose Admin Albuterol/ Ipratropium (Albuterol/ Ipratropium) 3 ml Q6HRT HHN 06/07/18 21:30 06/12/18 21:29 06/12/18 13:24 Amlodipine Besylate (Norvasc) 2.5 mg DAILY GT 2/17/19 09:00 07/08/18 08:59 06/12/18 08:59 Aspirin (ASA) 81 mg DAILY GT 06/08/18 09:00 07/08/18 08:59 06/12/18 08:58 Ceftriaxone Sodium 1 gm/ Dextrose 55 ml @ 110 mls/hr Q24H IVPB 06/11/18 15:00 06/18/18 14:59 06/12/18 14:31 Dextrose (Dextrose 50%) 25 ml Q30M PRN IV Hypoglycemia 06/07/18 21:30 07/07/18 21:29 Dextrose (Dextrose 50%) 50 ml Q30M PRN IV Hypoglycemia 06/07/18 21:30 07/07/18 21:29 Docusate Sodium (Colace) 100 mg TID GT 06/09/18 13:00 07/07/18 17:59 06/12/18 13:09 Gabapentin (Neurontin) 300 mg THREE TIMES A DAY GT 06/07/18 23:00 07/07/18 22:59 06/12/18 13:09 Heparin Sodium (Porcine) (Heparin 5000 units/ml) 5,000 units EVERY 12 HOURS SUBQ 06/07/18 21:00 07/07/18 20:59 06/12/18 09:21 Hydralazine HCl (Apresoline) 25 mg Q4H PRN GT SBP > 180mmHg 06/08/18 17:00 07/07/18 21:29 Insulin Aspart (NovoLOG) BEFORE MEALS AND HS SUBQ 06/07/18 22:00 07/07/18 21:59 06/12/18 13:10 Insulin Detemir (Levemir) 26 units EVERY 12 HOURS SUBQ 06/12/18 09:00 07/08/18 09:29 06/12/18 09:50 Lansoprazole (Prevacid) 30 mg BID GT 06/07/18 18:00 07/07/18 17:59 06/12/18 08:58 Nystatin (Nystatin) 5 ml BID GT 06/08/18 09:00 06/15/18 08:59 06/12/18 08:58 Sodium Chloride 1,000 ml @ 75 mls/hr [id number] IV 06/08/18 17:00 07/08/18 16:59 06/12/18 14:29 Roc Devi MD Jun 12, 2018 14:58
--- NOTE | 2018-06-12 15:29 | General Progress Note ---
Assessment/Plan Problem List: (1) Dementia ICD Codes: F03.90 - Unspecified dementia without behavioral disturbance SNOMED: 28860785 (2) Diabetes ICD Codes: E11.9 - Type 2 diabetes mellitus without complications SNOMED: 40140247 (3) HTN (hypertension) ICD Codes: I10 - Essential (primary) hypertension SNOMED: 15739339 (4) Sepsis ICD Codes: A41.9 - Sepsis SNOMED: 69813300 (5) PNA (pneumonia) ICD Codes: J18.9 - Pneumonia, unspecified organism SNOMED: 160417585 Qualifiers: Qualified Codes: J18.9 - Pneumonia, unspecified organism (6) Renal failure (ARF), acute on chronic ICD Codes: N17.9 - Acute kidney failure, unspecified; N18.9 - Chronic kidney disease, unspecified SNOMED: 950373408 Status: unchanged Assessment/Plan o2 pulm tx pt diet abx cbc bmp am Subjective Constitutional: Reports: weakness Allergies: Coded Allergies: NO KNOWN DRUG ALLERGIES (Unverified Allergy, Unknown, 05/29/14) All Systems: reviewed and negative except above Subjective in bed confused Objective Last 24 Hour Vital Signs Date Time Temp Pulse Resp B/P (MAP) Pulse Ox O2 Delivery O2 Flow Rate FiO2 06/12/18 13:29 80 20 99 Nasal Cannula 2.0 28 06/12/18 13:24 79 20 94 Nasal Cannula 2.0 28 06/12/18 12:00 98.2 73 20 128/54 (78) 94 06/12/18 08:59 84 160/84 06/12/18 08:29 82 18 Nasal Cannula 2.0 28 06/12/18 08:28 77 18 99 Nasal Cannula 2.0 28 06/12/18 08:15 Nasal Cannula 2.0 06/12/18 08:10 Nasal Cannula 2.0 28 06/12/18 08:10 95 Nasal Cannula 2.0 28 06/12/18 08:09 83 18 95 Nasal Cannula 2.0 28 06/12/18 08:00 97.1 84 20 160/84 (109) 95 06/12/18 04:00 98.2 85 18 119/79 (92) 97 06/12/18 01:33 76 18 100 Nasal Cannula 2.0 28 06/12/18 01:23 75 18 96 Nasal Cannula 2.0 28 06/12/18 00:00 98.0 81 18 122/67 (85) 97 06/11/18 21:00 Nasal Cannula 2.0 06/11/18 20:00 98.5 90 18 148/76 (100) 97 06/11/18 19:49 71 16 100 Nasal Cannula 2.0 28 06/11/18 19:39 78 16 93 Nasal Cannula 2.0 28 06/11/18 19:39 Nasal Cannula 2.0 28 06/11/18 19:39 94 Nasal Cannula 2.0 28 06/11/18 16:00 98.3 69 18 140/70 (93) 97 Intake and Output 06/11/18 06/12/18 19:00 07:00 Intake Total 966 ml 1513 ml Output Total 800 ml 1100 ml Balance 166 ml 413 ml Intake Free Water 90 ml 80 ml IV Total 505 ml 850 ml Tube Feeding 371 ml 583 ml Output Urine Total 800 ml 1100 ml # Bowel Movements 2 2 Laboratory Tests 06/12/18 07:11: White Blood Count 6.4, Red Blood Count 3.92L, Hemoglobin 11.5L, Hematocrit 35.4L , Mean Corpuscular Volume 90, Mean Corpuscular Hemoglobin 29.5, Mean Corpuscular Hemoglobin Concent 32.6, Red Cell Distribution Width 14.1, Platelet Count 229, Mean Platelet Volume 7.7, Neutrophils (%) (Auto) 71.9, Lymphocytes (% ) (Auto) 15.8L, Monocytes (%) (Auto) 6.0, Eosinophils (%) (Auto) 4.3H, Basophils (%) (Auto) 1.9, Sodium Level 140, Potassium Level 4.5, Chloride Level 102, Carbon Dioxide Level 32, Anion Gap 6, Blood Urea Nitrogen 44H, Creatinine 1.4H, Estimat Glomerular Filtration Rate , Glucose Level 212H, Calcium Level 8.6 Height (Feet): 5 Height (Inches): 7.00 Weight (Pounds): 170 General Appearance: lethargic EENT: normal ENT inspection Neck: normal alignment Cardiovascular: normal peripheral pulses, normal rate, regular rhythm Respiratory/Chest: chest wall non-tender, lungs clear, normal breath sounds Abdomen: normal bowel sounds, non tender, soft Extremities: normal inspection Edema: no edema noted Arm (L), no edema noted Arm (R), no edema noted Leg (L), no edema noted Leg (R), no edema noted Pedal (L), no edema noted Pedal (R), no edema noted Generalized Neurologic: motor weakness Skin: normal pigmentation, warm/dry Remberto Joe DO Jun 12, 2018 15:29
[2018-06-12 16:00] VITALS: BP 139/58
--- NOTE | 2018-06-12 16:10 | Nephrology Progress Note ---
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 DM OOC Diabetic Nephropathy Proteinuria and HypoAlbuminemia High Ca likely dehydration Plan trial of Aredia Hydrate Antibiotics Per ID Monitor renal parameters Urine studies adjust electrolytes Subjective ROS Limited/Unobtainable: No Constitutional: Reports: weakness Objective Objective Last 24 Hour Vital Signs Date Time Temp Pulse Resp B/P (MAP) Pulse Ox O2 Delivery O2 Flow Rate FiO2 06/12/18 13:29 80 20 99 Nasal Cannula 2.0 28 06/12/18 13:24 79 20 94 Nasal Cannula 2.0 28 06/12/18 12:00 98.2 73 20 128/54 (78) 94 06/12/18 08:59 84 160/84 06/12/18 08:29 82 18 Nasal Cannula 2.0 28 06/12/18 08:28 77 18 99 Nasal Cannula 2.0 28 06/12/18 08:15 Nasal Cannula 2.0 06/12/18 08:10 Nasal Cannula 2.0 28 06/12/18 08:10 95 Nasal Cannula 2.0 28 06/12/18 08:09 83 18 95 Nasal Cannula 2.0 28 06/12/18 08:00 97.1 84 20 160/84 (109) 95 06/12/18 04:00 98.2 85 18 119/79 (92) 97 06/12/18 01:33 76 18 100 Nasal Cannula 2.0 28 06/12/18 01:23 75 18 96 Nasal Cannula 2.0 28 06/12/18 00:00 98.0 81 18 122/67 (85) 97 06/11/18 21:00 Nasal Cannula 2.0 06/11/18 20:00 98.5 90 18 148/76 (100) 97 06/11/18 19:49 71 16 100 Nasal Cannula 2.0 28 06/11/18 19:39 78 16 93 Nasal Cannula 2.0 28 06/11/18 19:39 Nasal Cannula 2.0 28 06/11/18 19:39 94 Nasal Cannula 2.0 28 Intake and Output 06/11/18 06/12/18 19:00 07:00 Intake Total 966 ml 1513 ml Output Total 800 ml 1100 ml Balance 166 ml 413 ml Intake Free Water 90 ml 80 ml IV Total 505 ml 850 ml Tube Feeding 371 ml 583 ml Output Urine Total 800 ml 1100 ml # Bowel Movements 2 2 Laboratory Tests 06/12/18 07:11: White Blood Count 6.4, Red Blood Count 3.92L, Hemoglobin 11.5L, Hematocrit 35.4L , Mean Corpuscular Volume 90, Mean Corpuscular Hemoglobin 29.5, Mean Corpuscular Hemoglobin Concent 32.6, Red Cell Distribution Width 14.1, Platelet Count 229, Mean Platelet Volume 7.7, Neutrophils (%) (Auto) 71.9, Lymphocytes (% ) (Auto) 15.8L, Monocytes (%) (Auto) 6.0, Eosinophils (%) (Auto) 4.3H, Basophils (%) (Auto) 1.9, Sodium Level 140, Potassium Level 4.5, Chloride Level 102, Carbon Dioxide Level 32, Anion Gap 6, Blood Urea Nitrogen 44H, Creatinine 1.4H, Estimat Glomerular Filtration Rate , Glucose Level 212H, Calcium Level 8.6 Height (Feet): 5 Height (Inches): 7.00 Weight (Pounds): 170 General Appearance: no apparent distress Cardiovascular: normal rate Respiratory/Chest: decreased breath sounds Abdomen: soft Hansel Kirkpatrick MD Jun 12, 2018 16:10
--- NOTE | 2018-06-12 18:09 | Cardiac Electrophysiology PN ---
Assessment/Plan Assessment/Plan 1. Troponin leak, could be due to renal failure as creatinine was 1.9. The patient is nonverbal. Echocardiogram EF 55% ECG no ST elevation 2. Hypertension.On amlodipine 2.5 mg daily, 3. Dysphagia, status post PEG placement. 4. Fever and sepsis on broad-spectrum IV antibiotics. 5. Renal failure.Creatinine down to 1.5 6. Diabetes, uncontrolled. VENESSA RN Subjective Subjective No events. On NMB. nonverbal. GT feeding ongoing Objective Last 24 Hour Vital Signs Date Time Temp Pulse Resp B/P (MAP) Pulse Ox O2 Delivery O2 Flow Rate FiO2 06/12/18 16:00 97.2 72 20 139/58 (85) 94 06/12/18 13:29 80 20 99 Nasal Cannula 2.0 28 06/12/18 13:24 79 20 94 Nasal Cannula 2.0 28 06/12/18 12:00 98.2 73 20 128/54 (78) 94 06/12/18 08:59 84 160/84 06/12/18 08:29 82 18 Nasal Cannula 2.0 28 06/12/18 08:28 77 18 99 Nasal Cannula 2.0 28 06/12/18 08:15 Nasal Cannula 2.0 06/12/18 08:10 Nasal Cannula 2.0 28 06/12/18 08:10 95 Nasal Cannula 2.0 28 06/12/18 08:09 83 18 95 Nasal Cannula 2.0 28 06/12/18 08:00 97.1 84 20 160/84 (109) 95 06/12/18 04:00 98.2 85 18 119/79 (92) 97 06/12/18 01:33 76 18 100 Nasal Cannula 2.0 28 06/12/18 01:23 75 18 96 Nasal Cannula 2.0 28 06/12/18 00:00 98.0 81 18 122/67 (85) 97 06/11/18 21:00 Nasal Cannula 2.0 06/11/18 20:00 98.5 90 18 148/76 (100) 97 06/11/18 19:49 71 16 100 Nasal Cannula 2.0 28 06/11/18 19:39 78 16 93 Nasal Cannula 2.0 28 06/11/18 19:39 Nasal Cannula 2.0 28 06/11/18 19:39 94 Nasal Cannula 2.0 28 Intake and Output 06/11/18 06/12/18 19:00 07:00 Intake Total 966 ml 1513 ml Output Total 800 ml 1100 ml Balance 166 ml 413 ml Intake Free Water 90 ml 80 ml IV Total 505 ml 850 ml Tube Feeding 371 ml 583 ml Output Urine Total 800 ml 1100 ml # Bowel Movements 2 2 Laboratory Tests Test 06/12/18 07:11 White Blood Count 6.4 K/UL (4.8-10.8) Red Blood Count 3.92 M/UL (4.70-6.10) L Hemoglobin 11.5 G/DL (14.2-18.0) L Hematocrit 35.4 % (42.0-52.0) L Mean Corpuscular Volume 90 FL (80-99) Mean Corpuscular Hemoglobin 29.5 PG (27.0-31.0) Mean Corpuscular Hemoglobin Concent 32.6 G/DL (32.0-36.0) Red Cell Distribution Width 14.1 % (11.6-14.8) Platelet Count 229 K/UL (150-450) Mean Platelet Volume 7.7 FL (6.5-10.1) Neutrophils (%) (Auto) 71.9 % (45.0-75.0) Lymphocytes (%) (Auto) 15.8 % (20.0-45.0) L Monocytes (%) (Auto) 6.0 % (1.0-10.0) Eosinophils (%) (Auto) 4.3 % (0.0-3.0) H Basophils (%) (Auto) 1.9 % (0.0-2.0) Sodium Level 140 MMOL/L (136-145) Potassium Level 4.5 MMOL/L (3.5-5.1) Chloride Level 102 MMOL/L (98-107) Carbon Dioxide Level 32 MMOL/L (21-32) Anion Gap 6 mmol/L (5-15) Blood Urea Nitrogen 44 mg/dL (7-18) H Creatinine 1.4 MG/DL (0.55-1.30) H Estimat Glomerular Filtration Rate mL/min (>60) Glucose Level 212 MG/DL (74-106) H Calcium Level 8.6 MG/DL (8.5-10.1) Objective HEAD AND NECK: No JVD. LUNGS: Coarse rhonchi. CARDIOVASCULAR: Regular S1 and S2 with no gallop. ABDOMEN: Status post G-tube. EXTREMITIES: 1+ pitting edema. oGld Birmingham MD Jun 12, 2018 18:09
--- NOTE | 2018-06-12 19:13 | NUR ---
HAND-OFF: Report given to Peewee GANNON.
--- NOTE | 2018-06-12 19:32 | NUR ---
NURSE NOTES: Patient in bed, awake, unable to make needs known. Bed in low and locked position. Provided safe environment. Skin is warm and dry, noted with sacral dressing. Abdomen is soft, gt noted, feeding is infusing as ordered. IV site noted, iv fluid is infusing. Respiration is even and on nasal cannula 2 L. Will continue plan of care. call light is at bedside. Will do frequent visual checks and repositioning every 2 hrs and prn.
--- NOTE | 2018-06-12 19:33 | Cardiology Report ---
APPROVED REPORT EXAM: Two-dimensional and M-mode echocardiogram with Doppler and color Doppler. INDICATION C.A.D M-Mode DIMENSIONS Left Atrium (MM)2.9 (1.6-4.0cm) Aortic Root2.3 (2.0-3.7cm) Aortic Cusp Exc.1.2 (1.5-2.0cm) Normal left ventricular chamber size, systolic function and wall motion Left ventricular ejection fraction estimated to be 55-60%. Mild left ventricular hypertrophy by 2-D. Trivial pericardial effusion. All other cardiac chamber sizes are within normal limits. Focal aortic valve sclerosis with adequate cusp excursion. Thickened mitral valve leaflets with normal excursion. Mild mitral annulus and aortic root calcification. Pulmonic valve not well visualized. Subcostal views are not obtained due to surgery site . A color flow and spectral Doppler study was performed and revealed: No aortic insufficiency . Left ventricular diastolic function can not determined due to Arrythmia. Mild mitral regurgitation. Mild tricuspid regurgitation. Tricuspid systolic velocities suggests peak right ventricular systolic pressure of 20 mmHg
[2018-06-12 20:00] VITALS: BP 142/80
[2018-06-13] VITALS: BP 132/68
[2018-06-13 04:00] VITALS: BP 141/74
[2018-06-13] MEDS: NovoLOG Insulin Flexpen SUBQ SCH ×3 (05:36→17:33)
--- NOTE | 2018-06-13 06:41 | NUR ---
NURSE NOTES: Dressing changed, patient was cleaned. Bed in low and locked position. Will continue plan of care.
--- NOTE | 2018-06-13 07:08 | NUR ---
HAND-OFF: Report given to TERESSA Claire.
--- NOTE | 2018-06-13 07:18 | NUR ---
NURSE NOTES: Received patient from Peewee GANNON, patient is resting in bed, O2 on, tube feeding in place and running, no distress noted, bed is locked and in lowest position, call light within reach, will continue to monitor.
[2018-06-13 07:54] LABS: EOSINOPHILS % (AUTO) 3.8 % (0.0-3.0); HEMOGLOBIN 11.5 G/DL (14.2-18.0); LYMPHOCYTES % (AUTO) 21.2 % (20.0-45.0); MEAN CORPUSCULAR VOLUME 90 FL (80-99); MONOCYTES % (AUTO) 6.6 % (1.0-10.0); NEUTROPHILS % (AUTO) 67.4 % (45.0-75.0); PLATELET COUNT 248 K/UL (150-450); RED BLOOD COUNT 3.89 M/UL (4.70-6.10); RED CELL DISTRIBUTION WIDTH 13.9 % (11.6-14.8); WHITE BLOOD COUNT 6.9 K/UL (4.8-10.8)
[2018-06-13 08:00] VITALS: BP 140/77
[2018-06-13] MEDS: Docusate 100mg/10ml Liq GT SCH ×3 (08:21→17:33)
[2018-06-13] MEDS: Aspirin Baby 81mg GT SCH (08:21)
[2018-06-13] MEDS: Nystatin Susp 500,000 units/5ml GT SCH ×2 (08:21→17:31)
[2018-06-13] MEDS: Heparin 5000 units/ml inj SUBQ SCH (08:23)
[2018-06-13] MEDS: Levemir Flexpen SUBQ SCH (08:24)
[2018-06-13 08:39] LABS: ALANINE AMINOTRANSFERASE 62 U/L (12-78); ALBUMIN 2.4 G/DL (3.4-5.0); ALBUMIN/GLOBULIN RATIO 0.5 (1.0-2.7); ALKALINE PHOSPHATASE 107 U/L (46-116); ANION GAP 6 mmol/L (5-15); ASPARTATE AMINO TRANSFERASE 56 U/L (15-37); BILIRUBIN,TOTAL 0.2 MG/DL (0.2-1.0); BLOOD UREA NITROGEN 40 mg/dL (7-18); CALCIUM 8.6 MG/DL (8.5-10.1); CARBON DIOXIDE 30 MMOL/L (21-32); CHLORIDE 101 MMOL/L (98-107); CREATININE 1.3 MG/DL (0.55-1.30); PHOSPHORUS 2.8 MG/DL (2.5-4.9); POTASSIUM 4.5 MMOL/L (3.5-5.1); SODIUM 137 MMOL/L (136-145)
[2018-06-13] MEDS: Gabapentin 300 MG/6 ML Soln GT SCH ×3 (09:26→17:32)
[2018-06-13 12:00] VITALS: BP 141/64
--- NOTE | 2018-06-13 12:16 | NUR ---
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 *Altered nutrition related lab values R/T DM, clinical condition as evidenced by elev BGs (545-> 335), A1C=8.3, uglu 4+ on adm. * Increased kcal and protein needs r/t wound full tickness wound x2, partial thickness wound x1. CURRENT TF: Glucerna 1.2 @ 53ml/hr x 20hrs ENTERAL NUTRITION RECOMMENDATIONS: Glucerna 1.5 @ 56ml/hr x 20 hrs to provide 1120ml, 1680kcal, 93g prot, 850ml free water * INCREASE current TF rate to goal of 56ml/hr x20 hrs to better meet est needs. * HOB over 30 degrees/ water flush per MD. ADDITIONAL RECOMMENDATIONS: * Re-calibrated bedscale wt- pt w/ added P200 mattress + pump. * WOUND CARE: SUSIE BID + VIT C 250mg BID * Monitor lytes, replete as needed. . .
--- NOTE | 2018-06-13 13:51 | General Progress Note ---
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 SNOMED: 864637084 (2) Dementia ICD Codes: F03.90 - Unspecified dementia without behavioral disturbance SNOMED: 10483472 Assessment/Plan continue Levemir 26 units bid continue NISS Subjective Allergies: Coded Allergies: NO KNOWN DRUG ALLERGIES (Unverified Allergy, Unknown, 05/29/14) All Systems: reviewed and negative except above Subjective events noted Item Value Date Time Bedside Blood Glucose 131 mg/dl H 06/13/18 1143 Bedside Blood Glucose 178 mg/dl H 06/13/18 0824 Bedside Blood Glucose 178 mg/dl H 06/13/18 0541 Bedside Blood Glucose 124 mg/dl H 06/12/18 2106 Bedside Blood Glucose 149 mg/dl H 06/12/18 1714 Bedside Blood Glucose 162 mg/dl H 06/12/18 1310 Bedside Blood Glucose 207 mg/dl H 06/12/18 0950 Objective Last 24 Hour Vital Signs Date Time Temp Pulse Resp B/P (MAP) Pulse Ox O2 Delivery O2 Flow Rate FiO2 06/13/18 12:00 98.2 72 18 141/64 (89) 99 06/13/18 08:21 71 140/77 06/13/18 08:00 Nasal Cannula 2.0 06/13/18 08:00 98.2 71 20 140/77 (98) 96 06/13/18 05:20 Nasal Cannula 2.0 28 06/13/18 05:20 96 Nasal Cannula 2.0 28 06/13/18 04:00 97.8 78 20 141/74 (96) 97 06/13/18 00:00 98.3 79 19 132/68 (89) 97 06/12/18 21:05 72 20 99 Nasal Cannula 2.0 28 06/12/18 20:58 74 20 97 Nasal Cannula 2.0 28 06/12/18 20:58 Nasal Cannula 2.0 28 06/12/18 20:57 97 Nasal Cannula 2.0 28 06/12/18 20:26 Nasal Cannula 2.0 06/12/18 20:00 98.1 78 19 142/80 (100) 96 06/12/18 16:00 97.2 72 20 139/58 (85) 94 Intake and Output 06/12/18 06/13/18 19:00 07:00 Intake Total 549 ml 1415 ml Output Total 1002 ml 1000 ml Balance -453 ml 415 ml Intake Free Water 50 ml 60 ml IV Total 75 ml 825 ml Tube Feeding 424 ml 530 ml Output Urine Total 1000 ml 1000 ml Stool Total 2 ml # Bowel Movements 1 Laboratory Tests 06/13/18 05:24: White Blood Count 6.9, Red Blood Count 3.89L, Hemoglobin 11.5L, Hematocrit 35.0L , Mean Corpuscular Volume 90, Mean Corpuscular Hemoglobin 29.6, Mean Corpuscular Hemoglobin Concent 32.9, Red Cell Distribution Width 13.9, Platelet Count 248, Mean Platelet Volume 7.5, Neutrophils (%) (Auto) 67.4, Lymphocytes (% ) (Auto) 21.2, Monocytes (%) (Auto) 6.6, Eosinophils (%) (Auto) 3.8H, Basophils (%) (Auto) 1.0, Sodium Level 137, Potassium Level 4.5, Chloride Level 101, Carbon Dioxide Level 30, Anion Gap 6, Blood Urea Nitrogen 40H, Creatinine 1.3, Estimat Glomerular Filtration Rate , Glucose Level 186H, Calcium Level 8.6, Phosphorus Level 2.8, Magnesium Level 2.3, Total Bilirubin 0.2, Aspartate Amino Transf (AST/SGOT) 56H, Alanine Aminotransferase (ALT/SGPT) 62, Alkaline Phosphatase 107, Total Protein 7.1, Albumin 2.4L, Globulin 4.7, Albumin/ Globulin Ratio 0.5L Height (Feet): 5 Height (Inches): 7.00 Weight (Pounds): 170 General Appearance: no apparent distress Neck: normal alignment Cardiovascular: normal rate Respiratory/Chest: lungs clear Abdomen: normal bowel sounds Objective Current Medications Medications (Trade) Dose Ordered Sig/Dimas Route PRN Reason Start Time Stop Time Status Last Admin Dose Admin Amlodipine Besylate (Norvasc) 2.5 mg DAILY GT 06/08/18 09:00 07/08/18 08:59 06/13/18 08:21 Aspirin (ASA) 81 mg DAILY GT 06/08/18 09:00 07/08/18 08:59 06/13/18 08:21 Ceftriaxone Sodium 1 gm/ Dextrose 55 ml @ 110 mls/hr Q24H IVPB 06/11/18 15:00 06/18/18 14:59 06/12/18 14:31 Dextrose (Dextrose 50%) 25 ml Q30M PRN IV Hypoglycemia 06/07/18 21:30 07/07/18 21:29 Dextrose (Dextrose 50%) 50 ml Q30M PRN IV Hypoglycemia 06/07/18 21:30 07/07/18 21:29 Docusate Sodium (Colace) 100 mg TID GT 06/09/18 13:00 07/07/18 17:59 06/13/18 08:21 Gabapentin (Neurontin) 300 mg THREE TIMES A DAY GT 06/07/18 23:00 07/07/18 22:59 06/13/18 09:26 Heparin Sodium (Porcine) (Heparin 5000 units/ml) 5,000 units EVERY 12 HOURS SUBQ 06/07/18 21:00 07/07/18 20:59 06/13/18 08:23 Hydralazine HCl (Apresoline) 25 mg Q4H PRN GT SBP > 180mmHg 06/08/18 17:00 07/07/18 21:29 Insulin Aspart (NovoLOG) BEFORE MEALS AND HS SUBQ 06/07/18 22:00 07/07/18 21:59 06/13/18 11:43 Insulin Detemir (Levemir) 26 units EVERY 12 HOURS SUBQ 06/12/18 09:00 07/08/18 09:29 06/13/18 08:24 Lansoprazole (Prevacid) 30 mg BID GT 06/07/18 18:00 07/07/18 17:59 06/13/18 08:21 Nystatin (Nystatin) 5 ml BID GT 06/08/18 09:00 06/15/18 08:59 06/13/18 08:21 Sodium Chloride 1,000 ml @ 75 mls/hr [id number] IV 06/08/18 17:00 07/08/18 16:59 06/13/18 05:00 Cristiano Zuñiga MD Jun 13, 2018 13:51
[2018-06-13] MEDS ORDERED: LEVEMIR FL100 UNIT/1 SUBQ (14:37)
[2018-06-13] MEDS ORDERED: NOVOLOG100 UNITS1 SUBQ (14:37)
[2018-06-13] MEDS ORDERED: NORVASC5 MG GT (14:37)
--- NOTE | 2018-06-13 14:38 | Infectious Diseases Prog Note ---
Assessment/Plan Assessment/Plan A 1. fever resplved 2. + blood cultures with coag neg staph likely contaminated 3. renal failure improving 4. hyperglycemia 5. VRE colonization P 1. continue Rocephin x 1 day Subjective ROS Limited/Unobtainable: Yes Allergies: Coded Allergies: NO KNOWN DRUG ALLERGIES (Unverified Allergy, Unknown, 05/29/14) Objective Vital Signs Last 24 Hour Vital Signs Date Time Temp Pulse Resp B/P (MAP) Pulse Ox O2 Delivery O2 Flow Rate FiO2 06/13/18 12:00 98.2 72 18 141/64 (89) 99 06/13/18 08:21 71 140/77 06/13/18 08:00 Nasal Cannula 2.0 06/13/18 08:00 98.2 71 20 140/77 (98) 96 06/13/18 05:20 Nasal Cannula 2.0 28 06/13/18 05:20 96 Nasal Cannula 2.0 28 06/13/18 04:00 97.8 78 20 141/74 (96) 97 06/13/18 00:00 98.3 79 19 132/68 (89) 97 06/12/18 21:05 72 20 99 Nasal Cannula 2.0 28 06/12/18 20:58 74 20 97 Nasal Cannula 2.0 28 06/12/18 20:58 Nasal Cannula 2.0 28 06/12/18 20:57 97 Nasal Cannula 2.0 28 06/12/18 20:26 Nasal Cannula 2.0 06/12/18 20:00 98.1 78 19 142/80 (100) 96 06/12/18 16:00 97.2 72 20 139/58 (85) 94 Height (Feet): 5 Height (Inches): 7.00 Weight (Pounds): 170 General Appearance: no acute distress HEENT: mucous membranes moist Respiratory/Chest: rhonchi - bilaterally Cardiovascular: normal rate Abdomen: soft, non tender, other - GT feeding Extremities: no edema Neurologic/Psychiatric: aphasia Laboratory Tests Test 06/13/18 05:24 White Blood Count 6.9 K/UL (4.8-10.8) Red Blood Count 3.89 M/UL (4.70-6.10) L Hemoglobin 11.5 G/DL (14.2-18.0) L Hematocrit 35.0 % (42.0-52.0) L Mean Corpuscular Volume 90 FL (80-99) Mean Corpuscular Hemoglobin 29.6 PG (27.0-31.0) Mean Corpuscular Hemoglobin Concent 32.9 G/DL (32.0-36.0) Red Cell Distribution Width 13.9 % (11.6-14.8) Platelet Count 248 K/UL (150-450) Mean Platelet Volume 7.5 FL (6.5-10.1) Neutrophils (%) (Auto) 67.4 % (45.0-75.0) Lymphocytes (%) (Auto) 21.2 % (20.0-45.0) Monocytes (%) (Auto) 6.6 % (1.0-10.0) Eosinophils (%) (Auto) 3.8 % (0.0-3.0) H Basophils (%) (Auto) 1.0 % (0.0-2.0) Sodium Level 137 MMOL/L (136-145) Potassium Level 4.5 MMOL/L (3.5-5.1) Chloride Level 101 MMOL/L (98-107) Carbon Dioxide Level 30 MMOL/L (21-32) Anion Gap 6 mmol/L (5-15) Blood Urea Nitrogen 40 mg/dL (7-18) H Creatinine 1.3 MG/DL (0.55-1.30) Estimat Glomerular Filtration Rate mL/min (>60) Glucose Level 186 MG/DL (74-106) H Calcium Level 8.6 MG/DL (8.5-10.1) Phosphorus Level 2.8 MG/DL (2.5-4.9) Magnesium Level 2.3 MG/DL (1.8-2.4) Total Bilirubin 0.2 MG/DL (0.2-1.0) Aspartate Amino Transf (AST/SGOT) 56 U/L (15-37) H Alanine Aminotransferase (ALT/SGPT) 62 U/L (12-78) Alkaline Phosphatase 107 U/L (46-116) Total Protein 7.1 G/DL (6.4-8.2) Albumin 2.4 G/DL (3.4-5.0) L Globulin 4.7 g/dL Albumin/Globulin Ratio 0.5 (1.0-2.7) L Current Medications Medications (Trade) Dose Ordered Sig/Dimas Route PRN Reason Start Time Stop Time Status Last Admin Dose Admin Amlodipine Besylate (Norvasc) 2.5 mg DAILY GT 06/08/18 09:00 07/08/18 08:59 06/13/18 08:21 Aspirin (ASA) 81 mg DAILY GT 06/08/18 09:00 07/08/18 08:59 06/13/18 08:21 Ceftriaxone Sodium 1 gm/ Dextrose 55 ml @ 110 mls/hr Q24H IVPB 06/11/18 15:00 06/18/18 14:59 06/12/18 14:31 Dextrose (Dextrose 50%) 25 ml Q30M PRN IV Hypoglycemia 06/07/18 21:30 07/07/18 21:29 Dextrose (Dextrose 50%) 50 ml Q30M PRN IV Hypoglycemia 06/07/18 21:30 07/07/18 21:29 Docusate Sodium (Colace) 100 mg TID GT 06/09/18 13:00 07/07/18 17:59 06/13/18 13:53 Gabapentin (Neurontin) 300 mg THREE TIMES A DAY GT 06/07/18 23:00 07/07/18 22:59 06/13/18 13:53 Heparin Sodium (Porcine) (Heparin 5000 units/ml) 5,000 units EVERY 12 HOURS SUBQ 06/07/18 21:00 07/07/18 20:59 06/13/18 08:23 Hydralazine HCl (Apresoline) 25 mg Q4H PRN GT SBP > 180mmHg 06/08/18 17:00 07/07/18 21:29 Insulin Aspart (NovoLOG) BEFORE MEALS AND HS SUBQ 06/07/18 22:00 07/07/18 21:59 06/13/18 11:43 Insulin Detemir (Levemir) 26 units EVERY 12 HOURS SUBQ 06/12/18 09:00 07/08/18 09:29 06/13/18 08:24 Lansoprazole (Prevacid) 30 mg BID GT 06/07/18 18:00 07/07/18 17:59 06/13/18 08:21 Nystatin (Nystatin) 5 ml BID GT 06/08/18 09:00 06/15/18 08:59 06/13/18 08:21 Sodium Chloride 1,000 ml @ 75 mls/hr [id number] IV 06/08/18 17:00 07/08/18 16:59 06/13/18 05:00 Roc Devi MD Jun 13, 2018 14:38
--- NOTE | 2018-06-13 14:38 | Pulmonology Progress Note ---
Assessment/Plan Problems: (1) Sepsis (2) Renal failure (ARF), acute on chronic (3) Diabetes (4) Dementia (5) Diabetic nephropathy (6) Feeding by G-tube (7) History of CVA (cerebrovascular accident) Assessment/Plan getting better IV fluids iv abx check cultures symptomatic treatment dvt prophylaxis dc to intermediate Subjective ROS Limited/Unobtainable: Yes Constitutional: Reports: no symptoms HEENT: Repors: no symptoms Respiratory: Reports: no symptoms Allergies: Coded Allergies: NO KNOWN DRUG ALLERGIES (Unverified Allergy, Unknown, 05/29/14) Objective Last 24 Hour Vital Signs Date Time Temp Pulse Resp B/P (MAP) Pulse Ox O2 Delivery O2 Flow Rate FiO2 06/13/18 12:00 98.2 72 18 141/64 (89) 99 06/13/18 08:21 71 140/77 06/13/18 08:00 Nasal Cannula 2.0 06/13/18 08:00 98.2 71 20 140/77 (98) 96 06/13/18 05:20 Nasal Cannula 2.0 28 06/13/18 05:20 96 Nasal Cannula 2.0 28 06/13/18 04:00 97.8 78 20 141/74 (96) 97 06/13/18 00:00 98.3 79 19 132/68 (89) 97 06/12/18 21:05 72 20 99 Nasal Cannula 2.0 28 06/12/18 20:58 74 20 97 Nasal Cannula 2.0 28 06/12/18 20:58 Nasal Cannula 2.0 28 06/12/18 20:57 97 Nasal Cannula 2.0 28 06/12/18 20:26 Nasal Cannula 2.0 06/12/18 20:00 98.1 78 19 142/80 (100) 96 06/12/18 16:00 97.2 72 20 139/58 (85) 94 Intake and Output 06/12/18 06/13/18 19:00 07:00 Intake Total 549 ml 1415 ml Output Total 1002 ml 1000 ml Balance -453 ml 415 ml Intake Free Water 50 ml 60 ml IV Total 75 ml 825 ml Tube Feeding 424 ml 530 ml Output Urine Total 1000 ml 1000 ml Stool Total 2 ml # Bowel Movements 1 Objective General Appearance: WD/WN, no apparent distress Lines, tubes and drains: peripheral HEENT: normocephalic, atraumatic Neck: non-tender, normal alignment Respiratory/Chest: chest wall non-tender, lungs clear Cardiovascular/Chest: normal peripheral pulses, normal rate Abdomen: normal bowel sounds Extremities: normal range of motion Skin Exam: normal pigmentation Neurologic: wound care nurse II-XII grossly normal Laboratory Tests 06/13/18 05:24: White Blood Count 6.9, Red Blood Count 3.89L, Hemoglobin 11.5L, Hematocrit 35.0L , Mean Corpuscular Volume 90, Mean Corpuscular Hemoglobin 29.6, Mean Corpuscular Hemoglobin Concent 32.9, Red Cell Distribution Width 13.9, Platelet Count 248, Mean Platelet Volume 7.5, Neutrophils (%) (Auto) 67.4, Lymphocytes (% ) (Auto) 21.2, Monocytes (%) (Auto) 6.6, Eosinophils (%) (Auto) 3.8H, Basophils (%) (Auto) 1.0, Sodium Level 137, Potassium Level 4.5, Chloride Level 101, Carbon Dioxide Level 30, Anion Gap 6, Blood Urea Nitrogen 40H, Creatinine 1.3, Estimat Glomerular Filtration Rate , Glucose Level 186H, Calcium Level 8.6, Phosphorus Level 2.8, Magnesium Level 2.3, Total Bilirubin 0.2, Aspartate Amino Transf (AST/SGOT) 56H, Alanine Aminotransferase (ALT/SGPT) 62, Alkaline Phosphatase 107, Total Protein 7.1, Albumin 2.4L, Globulin 4.7, Albumin/ Globulin Ratio 0.5L Current Medications Medications (Trade) Dose Ordered Sig/Dimas Route PRN Reason Start Time Stop Time Status Last Admin Dose Admin Amlodipine Besylate (Norvasc) 2.5 mg DAILY GT 06/08/18 09:00 07/08/18 08:59 06/13/18 08:21 Aspirin (ASA) 81 mg DAILY GT 06/08/18 09:00 07/08/18 08:59 06/13/18 08:21 Ceftriaxone Sodium 1 gm/ Dextrose 55 ml @ 110 mls/hr Q24H IVPB 06/11/18 15:00 06/18/18 14:59 06/12/18 14:31 Dextrose (Dextrose 50%) 25 ml Q30M PRN IV Hypoglycemia 06/07/18 21:30 07/07/18 21:29 Dextrose (Dextrose 50%) 50 ml Q30M PRN IV Hypoglycemia 06/07/18 21:30 07/07/18 21:29 Docusate Sodium (Colace) 100 mg TID GT 06/09/18 13:00 07/07/18 17:59 06/13/18 13:53 Gabapentin (Neurontin) 300 mg THREE TIMES A DAY GT 06/07/18 23:00 07/07/18 22:59 06/13/18 13:53 Heparin Sodium (Porcine) (Heparin 5000 units/ml) 5,000 units EVERY 12 HOURS SUBQ 06/07/18 21:00 07/07/18 20:59 06/13/18 08:23 Hydralazine HCl (Apresoline) 25 mg Q4H PRN GT SBP > 180mmHg 06/08/18 17:00 07/07/18 21:29 Insulin Aspart (NovoLOG) BEFORE MEALS AND HS SUBQ 06/07/18 22:00 07/07/18 21:59 06/13/18 11:43 Insulin Detemir (Levemir) 26 units EVERY 12 HOURS SUBQ 06/12/18 09:00 07/08/18 09:29 06/13/18 08:24 Lansoprazole (Prevacid) 30 mg BID GT 06/07/18 18:00 07/07/18 17:59 06/13/18 08:21 Nystatin (Nystatin) 5 ml BID GT 06/08/18 09:00 06/15/18 08:59 06/13/18 08:21 Sodium Chloride 1,000 ml @ 75 mls/hr [id number] IV 06/08/18 17:00 07/08/18 16:59 06/13/18 05:00 Wang Guzman MD Jun 13, 2018 14:38
--- NOTE | 2018-06-13 14:43 | General Progress Note ---
Assessment/Plan Problem List: (1) Dementia ICD Codes: F03.90 - Unspecified dementia without behavioral disturbance SNOMED: 54582860 (2) Diabetes ICD Codes: E11.9 - Type 2 diabetes mellitus without complications SNOMED: 40819525 (3) HTN (hypertension) ICD Codes: I10 - Essential (primary) hypertension SNOMED: 29683270 (4) Sepsis ICD Codes: A41.9 - Sepsis SNOMED: 69021488 (5) PNA (pneumonia) ICD Codes: J18.9 - Pneumonia, unspecified organism SNOMED: 047452230 Qualifiers: Qualified Codes: J18.9 - Pneumonia, unspecified organism (6) Renal failure (ARF), acute on chronic ICD Codes: N17.9 - Acute kidney failure, unspecified; N18.9 - Chronic kidney disease, unspecified SNOMED: 121801259 Status: stable, progressing Assessment/Plan o2 pulm tx pt diet abx cbc bmp am dc plan snf Subjective Constitutional: Reports: weakness Allergies: Coded Allergies: NO KNOWN DRUG ALLERGIES (Unverified Allergy, Unknown, 05/29/14) All Systems: reviewed and negative except above Subjective o2nc sleepy Objective Last 24 Hour Vital Signs Date Time Temp Pulse Resp B/P (MAP) Pulse Ox O2 Delivery O2 Flow Rate FiO2 06/13/18 12:00 98.2 72 18 141/64 (89) 99 06/13/18 08:21 71 140/77 06/13/18 08:00 Nasal Cannula 2.0 06/13/18 08:00 98.2 71 20 140/77 (98) 96 06/13/18 05:20 Nasal Cannula 2.0 28 06/13/18 05:20 96 Nasal Cannula 2.0 28 06/13/18 04:00 97.8 78 20 141/74 (96) 97 06/13/18 00:00 98.3 79 19 132/68 (89) 97 06/12/18 21:05 72 20 99 Nasal Cannula 2.0 28 06/12/18 20:58 74 20 97 Nasal Cannula 2.0 28 06/12/18 20:58 Nasal Cannula 2.0 28 06/12/18 20:57 97 Nasal Cannula 2.0 28 06/12/18 20:26 Nasal Cannula 2.0 06/12/18 20:00 98.1 78 19 142/80 (100) 96 06/12/18 16:00 97.2 72 20 139/58 (85) 94 Intake and Output 06/12/18 06/13/18 19:00 07:00 Intake Total 549 ml 1415 ml Output Total 1002 ml 1000 ml Balance -453 ml 415 ml Intake Free Water 50 ml 60 ml IV Total 75 ml 825 ml Tube Feeding 424 ml 530 ml Output Urine Total 1000 ml 1000 ml Stool Total 2 ml # Bowel Movements 1 Laboratory Tests 06/13/18 05:24: White Blood Count 6.9, Red Blood Count 3.89L, Hemoglobin 11.5L, Hematocrit 35.0L , Mean Corpuscular Volume 90, Mean Corpuscular Hemoglobin 29.6, Mean Corpuscular Hemoglobin Concent 32.9, Red Cell Distribution Width 13.9, Platelet Count 248, Mean Platelet Volume 7.5, Neutrophils (%) (Auto) 67.4, Lymphocytes (% ) (Auto) 21.2, Monocytes (%) (Auto) 6.6, Eosinophils (%) (Auto) 3.8H, Basophils (%) (Auto) 1.0, Sodium Level 137, Potassium Level 4.5, Chloride Level 101, Carbon Dioxide Level 30, Anion Gap 6, Blood Urea Nitrogen 40H, Creatinine 1.3, Estimat Glomerular Filtration Rate , Glucose Level 186H, Calcium Level 8.6, Phosphorus Level 2.8, Magnesium Level 2.3, Total Bilirubin 0.2, Aspartate Amino Transf (AST/SGOT) 56H, Alanine Aminotransferase (ALT/SGPT) 62, Alkaline Phosphatase 107, Total Protein 7.1, Albumin 2.4L, Globulin 4.7, Albumin/ Globulin Ratio 0.5L Height (Feet): 5 Height (Inches): 7.00 Weight (Pounds): 170 General Appearance: lethargic EENT: normal ENT inspection Neck: normal alignment Cardiovascular: normal peripheral pulses, normal rate, regular rhythm Respiratory/Chest: chest wall non-tender, lungs clear, normal breath sounds Abdomen: normal bowel sounds, non tender, soft Extremities: normal inspection Edema: no edema noted Arm (L), no edema noted Arm (R), no edema noted Leg (L), no edema noted Leg (R), no edema noted Pedal (L), no edema noted Pedal (R), no edema noted Generalized Neurologic: motor weakness Skin: normal pigmentation, warm/dry Remberto Joe DO Jun 13, 2018 14:43
--- NOTE | 2018-06-13 15:22 | Surgery Progress Note ---
Surgery Progress Note Subjective Additional Comments no acute events. stable. Objective Last 24 Hour Vital Signs Date Time Temp Pulse Resp B/P (MAP) Pulse Ox O2 Delivery O2 Flow Rate FiO2 06/13/18 12:00 98.2 72 18 141/64 (89) 99 06/13/18 08:21 71 140/77 06/13/18 08:00 Nasal Cannula 2.0 06/13/18 08:00 98.2 71 20 140/77 (98) 96 06/13/18 05:20 Nasal Cannula 2.0 28 06/13/18 05:20 96 Nasal Cannula 2.0 28 06/13/18 04:00 97.8 78 20 141/74 (96) 97 06/13/18 00:00 98.3 79 19 132/68 (89) 97 06/12/18 21:05 72 20 99 Nasal Cannula 2.0 28 06/12/18 20:58 74 20 97 Nasal Cannula 2.0 28 06/12/18 20:58 Nasal Cannula 2.0 28 06/12/18 20:57 97 Nasal Cannula 2.0 28 06/12/18 20:26 Nasal Cannula 2.0 06/12/18 20:00 98.1 78 19 142/80 (100) 96 06/12/18 16:00 97.2 72 20 139/58 (85) 94 I&O Intake and Output 06/12/18 06/13/18 19:00 07:00 Intake Total 549 ml 1415 ml Output Total 1002 ml 1000 ml Balance -453 ml 415 ml Intake Free Water 50 ml 60 ml IV Total 75 ml 825 ml Tube Feeding 424 ml 530 ml Output Urine Total 1000 ml 1000 ml Stool Total 2 ml # Bowel Movements 1 Dressing: other Wound: other Drains: other Cardiovascular: RSR Respiratory: clear, decreased breath sounds Abdomen: present bowel sounds Extremities: other Laboratory Tests Test 06/13/18 05:24 White Blood Count 6.9 K/UL (4.8-10.8) Red Blood Count 3.89 M/UL (4.70-6.10) L Hemoglobin 11.5 G/DL (14.2-18.0) L Hematocrit 35.0 % (42.0-52.0) L Mean Corpuscular Volume 90 FL (80-99) Mean Corpuscular Hemoglobin 29.6 PG (27.0-31.0) Mean Corpuscular Hemoglobin Concent 32.9 G/DL (32.0-36.0) Red Cell Distribution Width 13.9 % (11.6-14.8) Platelet Count 248 K/UL (150-450) Mean Platelet Volume 7.5 FL (6.5-10.1) Neutrophils (%) (Auto) 67.4 % (45.0-75.0) Lymphocytes (%) (Auto) 21.2 % (20.0-45.0) Monocytes (%) (Auto) 6.6 % (1.0-10.0) Eosinophils (%) (Auto) 3.8 % (0.0-3.0) H Basophils (%) (Auto) 1.0 % (0.0-2.0) Sodium Level 137 MMOL/L (136-145) Potassium Level 4.5 MMOL/L (3.5-5.1) Chloride Level 101 MMOL/L (98-107) Carbon Dioxide Level 30 MMOL/L (21-32) Anion Gap 6 mmol/L (5-15) Blood Urea Nitrogen 40 mg/dL (7-18) H Creatinine 1.3 MG/DL (0.55-1.30) Estimat Glomerular Filtration Rate mL/min (>60) Glucose Level 186 MG/DL (74-106) H Calcium Level 8.6 MG/DL (8.5-10.1) Phosphorus Level 2.8 MG/DL (2.5-4.9) Magnesium Level 2.3 MG/DL (1.8-2.4) Total Bilirubin 0.2 MG/DL (0.2-1.0) Aspartate Amino Transf (AST/SGOT) 56 U/L (15-37) H Alanine Aminotransferase (ALT/SGPT) 62 U/L (12-78) Alkaline Phosphatase 107 U/L (46-116) Total Protein 7.1 G/DL (6.4-8.2) Albumin 2.4 G/DL (3.4-5.0) L Globulin 4.7 g/dL Albumin/Globulin Ratio 0.5 (1.0-2.7) L Plan Problems: (1) Multiple wounds Assessment & Plan: Pt presents with multiple pressure injuries present on admission. Full thickness pressure injury cleft of R ear.Wound viable with small amt sanguineous exudate noted. Periwound erythema noted.(L)0.7cm x (W)0.4cm x (D) 0.4cm. Full thickness pressure injury Sacrum with trace amt Biofilm easily removed with gentle friction.Wound bed otherwisw viable .Edges macerated.Erythema without induration periwound.No odor noted(L)1.6cm W()2.3cm x(D)0.2cm. Partial thickness wound lateral R tibia .base of wound moist and viable .(+) maceration with dark discoloration along edges .No odor noted. (L)1cm x (W) 0.8cm. Both heels are pink,firm and easily blanchable. Tx.Plan: Cleanse R ear with saline. Apply Silvasorb gel.Cover with Drsg.Change every 3 days and prn. Cleanse Sacrum with Saline.Apply Hydrogel.Cavilon Skin Barrier along edges and periwound.Cover with Optifoam Drsg.Change Daily and prn. Cleanse wound lateral R tibia with Saline.Apply Silvasorb Gel. Cavilon Skin Barrier periwound.Change every 3 days and prn. Apply Cavilon Skin Barrier R ear Daily APM/ASHLEY Mattress. Reposition at least every 2 hours or as tolerated. Off-load heels with pillow. okay to d/c. follow above recs at [facility] Steven Olmos Jun 13, 2018 15:22
[2018-06-13] MEDS: cefTRIAXone 1 GM in D5W 55 ML IVPB SCH (15:43)
--- NOTE | 2018-06-13 15:44 | NUR ---
*-* DISCHARGE PLANNED *-* PATIENT IS DISCHARGED TO: THE [facility] ROOM# 36-B LONG TERM T:[phone] FOR NURSE TO NURSE REPORT [facility] HAS BEEN ARRANG[facility] FOR [employer] DEVEL[employer] [id number] *-* CALLED FAMILY LEFT VOICEMAIL WITH SHELBY AVILA MAKING HER AWARE HER FATHER WAS DC BACK TO [place] *-*
[2018-06-13 16:00] VITALS: BP 154/61
--- NOTE | 2018-06-13 16:11 | Nephrology Progress Note ---
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 DM OOC Diabetic Nephropathy Proteinuria and HypoAlbuminemia High Ca likely dehydration Plan trial of Aredia Hydrate Antibiotics Per ID Monitor renal parameters Urine studies adjust electrolytes Subjective ROS Limited/Unobtainable: No Constitutional: Reports: malaise Objective Objective Last 24 Hour Vital Signs Date Time Temp Pulse Resp B/P (MAP) Pulse Ox O2 Delivery O2 Flow Rate FiO2 06/13/18 12:00 98.2 72 18 141/64 (89) 99 06/13/18 08:21 71 140/77 06/13/18 08:00 Nasal Cannula 2.0 06/13/18 08:00 98.2 71 20 140/77 (98) 96 06/13/18 05:20 Nasal Cannula 2.0 28 06/13/18 05:20 96 Nasal Cannula 2.0 28 06/13/18 04:00 97.8 78 20 141/74 (96) 97 06/13/18 00:00 98.3 79 19 132/68 (89) 97 06/12/18 21:05 72 20 99 Nasal Cannula 2.0 28 06/12/18 20:58 74 20 97 Nasal Cannula 2.0 28 06/12/18 20:58 Nasal Cannula 2.0 28 06/12/18 20:57 97 Nasal Cannula 2.0 28 06/12/18 20:26 Nasal Cannula 2.0 06/12/18 20:00 98.1 78 19 142/80 (100) 96 Intake and Output 06/12/18 06/13/18 19:00 07:00 Intake Total 549 ml 1415 ml Output Total 1002 ml 1000 ml Balance -453 ml 415 ml Intake Free Water 50 ml 60 ml IV Total 75 ml 825 ml Tube Feeding 424 ml 530 ml Output Urine Total 1000 ml 1000 ml Stool Total 2 ml # Bowel Movements 1 Laboratory Tests 06/13/18 05:24: White Blood Count 6.9, Red Blood Count 3.89L, Hemoglobin 11.5L, Hematocrit 35.0L , Mean Corpuscular Volume 90, Mean Corpuscular Hemoglobin 29.6, Mean Corpuscular Hemoglobin Concent 32.9, Red Cell Distribution Width 13.9, Platelet Count 248, Mean Platelet Volume 7.5, Neutrophils (%) (Auto) 67.4, Lymphocytes (% ) (Auto) 21.2, Monocytes (%) (Auto) 6.6, Eosinophils (%) (Auto) 3.8H, Basophils (%) (Auto) 1.0, Sodium Level 137, Potassium Level 4.5, Chloride Level 101, Carbon Dioxide Level 30, Anion Gap 6, Blood Urea Nitrogen 40H, Creatinine 1.3, Estimat Glomerular Filtration Rate , Glucose Level 186H, Calcium Level 8.6, Phosphorus Level 2.8, Magnesium Level 2.3, Total Bilirubin 0.2, Aspartate Amino Transf (AST/SGOT) 56H, Alanine Aminotransferase (ALT/SGPT) 62, Alkaline Phosphatase 107, Total Protein 7.1, Albumin 2.4L, Globulin 4.7, Albumin/ Globulin Ratio 0.5L Height (Feet): 5 Height (Inches): 7.00 Weight (Pounds): 170 General Appearance: no apparent distress Objective no change Hansel Kirkpatrick MD Jun 13, 2018 16:11
--- NOTE | 2018-06-13 19:23 | Cardiac Electrophysiology PN ---
Assessment/Plan Assessment/Plan 1. Troponin leak, due to renal failure as creatinine was 1.9. The patient is nonverbal. Echocardiogram EF 55% ECG no ST elevation 2. Hypertension.On amlodipine 2.5 mg daily, 3. Dysphagia, status post PEG placement. 4. Fever and sepsis on broad-spectrum IV antibiotics. 5. Renal failure.Creatinine down to 1.5 6. Diabetes, uncontrolled. DW RN DC back to [facility] today Subjective Subjective No events. . Nonverbal. GT feeding ongoing Objective Last 24 Hour Vital Signs Date Time Temp Pulse Resp B/P (MAP) Pulse Ox O2 Delivery O2 Flow Rate FiO2 06/13/18 16:00 97.2 71 20 154/61 (92) 99 06/13/18 12:00 98.2 72 18 141/64 (89) 99 06/13/18 08:21 71 140/77 06/13/18 08:00 Nasal Cannula 2.0 06/13/18 08:00 98.2 71 20 140/77 (98) 96 06/13/18 05:20 Nasal Cannula 2.0 28 06/13/18 05:20 96 Nasal Cannula 2.0 28 06/13/18 04:00 97.8 78 20 141/74 (96) 97 06/13/18 00:00 98.3 79 19 132/68 (89) 97 06/12/18 21:05 72 20 99 Nasal Cannula 2.0 28 06/12/18 20:58 74 20 97 Nasal Cannula 2.0 28 06/12/18 20:58 Nasal Cannula 2.0 28 06/12/18 20:57 97 Nasal Cannula 2.0 28 06/12/18 20:26 Nasal Cannula 2.0 06/12/18 20:00 98.1 78 19 142/80 (100) 96 Intake and Output 06/12/18 06/13/18 19:00 07:00 Intake Total 549 ml 1468 ml Output Total 1002 ml 1000 ml Balance -453 ml 468 ml Intake Free Water 50 ml 60 ml IV Total 75 ml 825 ml Tube Feeding 424 ml 583 ml Output Urine Total 1000 ml 1000 ml Stool Total 2 ml # Bowel Movements 1 Laboratory Tests Test 06/13/18 05:24 White Blood Count 6.9 K/UL (4.8-10.8) Red Blood Count 3.89 M/UL (4.70-6.10) L Hemoglobin 11.5 G/DL (14.2-18.0) L Hematocrit 35.0 % (42.0-52.0) L Mean Corpuscular Volume 90 FL (80-99) Mean Corpuscular Hemoglobin 29.6 PG (27.0-31.0) Mean Corpuscular Hemoglobin Concent 32.9 G/DL (32.0-36.0) Red Cell Distribution Width 13.9 % (11.6-14.8) Platelet Count 248 K/UL (150-450) Mean Platelet Volume 7.5 FL (6.5-10.1) Neutrophils (%) (Auto) 67.4 % (45.0-75.0) Lymphocytes (%) (Auto) 21.2 % (20.0-45.0) Monocytes (%) (Auto) 6.6 % (1.0-10.0) Eosinophils (%) (Auto) 3.8 % (0.0-3.0) H Basophils (%) (Auto) 1.0 % (0.0-2.0) Sodium Level 137 MMOL/L (136-145) Potassium Level 4.5 MMOL/L (3.5-5.1) Chloride Level 101 MMOL/L (98-107) Carbon Dioxide Level 30 MMOL/L (21-32) Anion Gap 6 mmol/L (5-15) Blood Urea Nitrogen 40 mg/dL (7-18) H Creatinine 1.3 MG/DL (0.55-1.30) Estimat Glomerular Filtration Rate mL/min (>60) Glucose Level 186 MG/DL (74-106) H Calcium Level 8.6 MG/DL (8.5-10.1) Phosphorus Level 2.8 MG/DL (2.5-4.9) Magnesium Level 2.3 MG/DL (1.8-2.4) Total Bilirubin 0.2 MG/DL (0.2-1.0) Aspartate Amino Transf (AST/SGOT) 56 U/L (15-37) H Alanine Aminotransferase (ALT/SGPT) 62 U/L (12-78) Alkaline Phosphatase 107 U/L (46-116) Total Protein 7.1 G/DL (6.4-8.2) Albumin 2.4 G/DL (3.4-5.0) L Globulin 4.7 g/dL Albumin/Globulin Ratio 0.5 (1.0-2.7) L Objective HEAD AND NECK: No JVD. LUNGS: Coarse rhonchi. CARDIOVASCULAR: Regular S1 and S2 with no gallop. ABDOMEN: Status post G-tube. EXTREMITIES: 1+ pitting edema. Gold Birmingham MD Jun 13, 2018 19:23
--- NOTE | 2018-06-13 19:28 | NUR ---
CASE MANAGEMENT: REVIEW SI: RENAL FAILURE . MULTIPLE WOUNDS . DIABETIC NEPHROPATHY T 97.2 HR 71 RR 20 BP 154/61 SAT 99% NC/2L H/H 11.5/35.0 BUN 40 AST 56 IS: CEFTRIAXONE IV Q24HR LEVEMIR 26UNITS SQ Q12HR NORVASC GT QD HEPARIN SQ Q12HR NS IVF @75ML/HR MED/SURG STATUS DCP: PATIENT IS FROM [facility]
--- NOTE | 2018-06-13 19:50 | NUR ---
HAND-OFF: Report given to Vanessa GANNON.
[2018-06-13] MEDS ORDERED: Tubing IV Secondary IV ONE (20:44)
--- NOTE | 2018-06-13 21:11 | NUR ---
NURSE NOTES: patient has been discharged to [facility], report given by previous nurse to Caesar RN. This RN checked with Caesar regarding removal of Holliday catheter, but Amelia asked it to be left so tomorrow the wound care nurse would evaluate the need. Report and discharge packet given to EMT Robb Alex, from [facility], pt going by EMS[facility] unit 621. No belongings listed. Going with G-tube clamped, and O2 2L/min nasal cannula. Removed peripheral IV access, no bleeding noted after site compression. Removed ID band. Patient in stable condition and VVSS, no sign of pain or discomfort.
--- NOTE | 2018-06-17 13:21 | Discharge Summary ---
Discharge Summary Discharge Summary _ DATE OF ADMISSION: 06/07/2018 DATE OF DISCHARGE: 06/13/2018 DISCHARGED BY: Dr. Joe REASON FOR ADMISSION: 83 years old male with past medical history of hypertension, CVA, asthma, diabetes mellitus, dementia, resident of [facility] facility, brought to emergency room for evaluation due to fever. Patient nonverbal at baseline and was not able to provide any information. No reported cough or shortness of breath. No nausea or vomiting. Upon evaluation vital signs revealed temperature 100.9 ; patient was tachypneic and required oxygen via nasal cannula to reach pulse oximetry of 95%. Chest x-ray revealed bibasilar opacity. EKG revealed normal sinus rhythm , no acute ischemic changes. Laboratory workup revealed no leukocytosis, hemoglobin 12.6, hematocrit 39.4. BUN 63 creatinine 1.7. Glucose 425. Stable anion gap, K and CO2. Lactic acid 1.7. Calcium 11.5. CRP 24.4. Pro BNP 1081. Urinalysis revealed no evidence of UTI, +4 glucose , negative for ketones. In the ER patient received bolus of the IV fluid, pancultured and started on empiric antibiotic. Patient was admitted for further management CONSULTANTS: continuous weld pipe mill supervisor Dr. Hugo pulmonary Dr. Guzman ID specialist Dr. Singh hand packer/packager Dr. Kirkpatrick surgery Dr. Olmos metal model builder Dr. Zuñiga [facility] COURSE: Patient admitted. ID and pulmonology closely followed. Patient started on empiric antibiotics. Blood cultures failed to revealed 2 out of 4 Staph epidermidis. Influenza screen test was negative. Fever resolved , no leukocytosis . Blood culture with staph epidermidis were likely contaminant , as per ID. Registered Respiratory Technician closely followed. Supplemental oxygen provided as needed to keep pulse oximetry above 92% . pulmonary toilet provided as needed. DVT prophylaxis provided. Patient completed empiric antibiotic treatment. Laborer follow. Blood sugar was managed with long-acting Levemir twice a day and sliding scale of insulin as needed. Hemoglobin A1c - 8.3. Renal parameters and electrolytes were closely monitored. Electrolytes corrected as needed , and nephrotoxins were avoided. Patient Manager closely followed. Per hand packer/packager patient had chronic kidney disease with baseline of creatinine 1.6 probably due to diabetic nephropathy and prerenal azotemia superimposed on chronic kidney disease. Renal azotemia resolved with hydration. Prior to discharge creatinine from 1.7 down to 1.3 and BUN from 63 down to 40. High calcium was likely due to dehydration . Patient was hydrated and undergone trial of Aredia. Calcium down to normal 8.6. Patient shown mild elevation in troponin - 0.085 Ordinary Seaman followed. Per continuous weld pipe mill supervisor, patient had troponin leak due to renal failure. Echocardiogram revealed preserved ejection fraction. EKG showed no acute ST elevation. Blood pressure was managed with calcium channel suzi and remained stable. Surgeon followed for multiply pressure injuries, present on admission. Wound care provided as per surgeon recommendation , and to be continued at the [facility] facility. Strict aspiration/reflux precautions were maintained. Patient was able to tolerate tube feeding. G-tube site care provided. Bowel regimen instituted. GI prophylaxis provided. Supportive care provided. Patient clinically stabilized and was ready for transfer back to [facility] facility for continuation of care DISCHARGE MEDICATIONS: See Medication Reconciliation list. FINAL DIAGNOSES: Sepsis Possible pneumonia Renal failure acute on chronic Diabetes with hyperglycemia Diabetic nephropathy Troponin leak, secondary to renal failure Hypertension Dysphagia, feeding by G-tube Dementia History of CVA Multiply deep tissue injury, present on admission DISCHARGE INSTRUCTIONS: Patient was discharged to the [facility] facility. Follow up with medical doctor at the facility. I have been assigned to dictate discharge summary for this account. I was not involved in the patient's management. Geovanna Brownlee NP Jun 17, 2018 13:21
== END 2018-06-13 20:45 | DRG 720 ==
LOC: EDBD 12:23 → EMR 12:45 → EDBEDREQ 13:21 → 4E 13:24 → EDBEDREQ 15:17 → 4E 20:37
DX: A41.9 Sepsis, unspecified organism (principal); N17.9 Acute kidney failure, unspecified; J18.9 Pneumonia, unspecified organism; E11.22 Type 2 diabetes mellitus with diabetic chronic kidney disease; R13.10 Dysphagia, unspecified; E83.52 Hypercalcemia; I12.9 Hypertensive chronic kidney disease with stage 1 through stage 4 chronic kidney disease, or unspecified chronic kidney disease; N18.9 Chronic kidney disease, unspecified; Z43.1 Encounter for attention to gastrostomy; Z86.73 Personal history of transient ischemic attack (TIA), and cerebral infarction without residual deficits; L89.95 Pressure ulcer of unspecified site, unstageable; F03.90 Unspecified dementia, unspecified severity, without behavioral disturbance, psychotic disturbance, mood disturbance, and anxiety; Z79.4 Long term (current) use of insulin; E11.65 Type 2 diabetes mellitus with hyperglycemia; N39.0 Urinary tract infection, site not specified
CPT/HCPCS: 36415; 71045; 80048; 80053; 80061; 80202; 81003; 82306; 82550; 82962; 82977; 83036; 83605; 83735; 83880; 83970; 84100; 84443; 84484; 84550; 85025; 86140; 86710; 87040; 87081; 87181; 93005; 93306; 94640; 94664; 94760; 96361; 96365; 99285; C9399; J1815; J2430; J7620; S5561

== ENCOUNTER 2019-02-15 14:24 | Inpatient (IN) | payer MEDICAID ==
[~2019-02-15] VITALS: Ht 172.7 cm; Wt 82.6 kg
[~2019-02-15 14:24] MED LIST changes: +CLONIDINE0.1 MG GT; +DUONEB 0.5-3(2.53 ML HHN; +LEVEMIR FL100 UNIT/1 SUBQ; -MILK OF MA2400 MG/10 ORAL; +NEURONTIN300 MG ORAL; +NORVASC5 MG GT; +NYSTATIN500000 UNI ORAL
[2019-02-15 14:36] VITALS: BP 120/54
--- NOTE | 2019-02-15 14:36 | Emergency Room Report ---
History of Present Illness General Chief Complaint: Fever Source: Patient, Medical Record Present Illness HPI 83 years old male with past medical history of hypertension, CVA, asthma, diabetes mellitus, dementia, resident of custodial facility, brought in for abdominal distention, generalized abdominal pain, fever, chills, unknown aggravating relieving factors severity is severe, constant symptoms started 1 day prior to arrival, patient sent for evaluation. Allergies: Coded Allergies: NO KNOWN DRUG ALLERGIES (Unverified Allergy, Unknown, 05/29/14) Patient History Limited by: medical condition - Dementia unable to communicate CVA Past Medical History: see triage record Reviewed Nursing Documentation: PMH: Agreed; PSxH: Agreed Nursing Documentation-PMH Past Medical History: No History, Except For Hx Hypertension: Yes Hx Asthma: Yes - bronchitis Hx Diabetes: Yes Hx Cancer: No Hx Dialysis: No Hx Neurological Problems: Yes - CVA, dysphagia, encephalophaty Hx Cerebrovascular Accident: No Hx Dementia: Yes Hx Seizures: No Hx Head Trauma: Yes Hx Aphasia: Yes Hx Weakness: Yes Hx Neurologic Surgery: No Hx Brain Shunt: No Review of Systems All Other Systems: limited - Dementia unable to communicate CVA Physical Exam Vital Signs Date Time Temp Pulse Resp B/P (MAP) Pulse Ox O2 Delivery O2 Flow Rate FiO2 02/15/19 14:26 99.7 88 22 119/64 (82) 94 Room Air Sp02 EP Interpretation: reviewed, normal General Appearance: mild distress, Chronically Ill Head: normocephalic, atraumatic Eyes: bilateral eye PERRL, bilateral eye EOMI ENT: uvula midline, moist mucus membranes Neck: supple, thyroid normal, supple/symm/no masses Respiratory: lungs clear, no respiratory distress, no retraction, no accessory muscle use Cardiovascular #1: normal peripheral pulses, regular rate, rhythm, no edema, no gallop, no murmur Gastrointestinal: distended, tenderness - Diffuse Musculoskeletal: other - Contractures Neurologic: alert, responsive Psychiatric: mood/affect normal Skin: no rash, warm/dry Medical Decision Making Diagnostic Impression: Primary Impression: Fever Qualified Codes: R50.9 - Fever, unspecified Additional Impressions: Sepsis Qualified Codes: A41.9 - Sepsis, unspecified organism Fecal impaction UTI (urinary tract infection) Qualified Codes: N30.00 - Acute cystitis without hematuria ER Course 83-year-old male presents with fever, tachycardia, concerning for sepsis, patient instantly found to have a UTI differential diagnosis includes intra- abdominal infection as well as pneumonia Broad-spectrum antibiotics were started given he is from a SNF Patient also found to have a fecal impaction, manual disimpaction was conducted large amounts of stool were removed and an enema was placed Patient will be admitted to telemetry for continued antibiotics for his UTI Patient admitted to Dr. Joe Laboratory Tests Test 02/15/19 14:50 White Blood Count 13.6 K/UL (4.8-10.8) H Red Blood Count 4.34 M/UL (4.70-6.10) L Hemoglobin 11.7 G/DL (14.2-18.0) L Hematocrit 36.4 % (42.0-52.0) L Mean Corpuscular Volume 84 FL (80-99) Mean Corpuscular Hemoglobin 26.9 PG (27.0-31.0) L Mean Corpuscular Hemoglobin Concent 32.1 G/DL (32.0-36.0) Red Cell Distribution Width 14.3 % (11.6-14.8) Platelet Count 290 K/UL (150-450) Mean Platelet Volume 6.7 FL (6.5-10.1) Neutrophils (%) (Auto) 74.3 % (45.0-75.0) Lymphocytes (%) (Auto) 15.2 % (20.0-45.0) L Monocytes (%) (Auto) 9.5 % (1.0-10.0) Eosinophils (%) (Auto) 0.1 % (0.0-3.0) Basophils (%) (Auto) 0.9 % (0.0-2.0) Prothrombin Time 10.1 SEC (9.30-11.50) Prothrombin Time INR 0.9 (0.9-1.1) PTT 25 SEC (23-33) Urine Color Yellow Urine Appearance Clear Urine pH 5 (4.5-8.0) Urine Specific [place] 1.010 (1.005-1.035) Urine Protein 3+ (NEGATIVE) H Urine Glucose (UA) Negative (NEGATIVE) Urine Ketones Negative (NEGATIVE) Urine Blood 1+ (NEGATIVE) H Urine Nitrite Negative (NEGATIVE) Urine Bilirubin Negative (NEGATIVE) Urine Urobilinogen Normal MG/DL (0.0-1.0) Urine Leukocyte Esterase Negative (NEGATIVE) Urine RBC 5-10 /HPF (0 - 0) H Urine WBC 0-2 /HPF (0 - 0) Urine Squamous Epithelial Cells Few /LPF (NONE/OCC) Urine Amorphous Sediment Many /LPF (NONE) H Urine Bacteria Moderate /HPF (NONE) H Sodium Level 139 MMOL/L (136-145) Potassium Level 5.1 MMOL/L (3.5-5.1) Chloride Level 101 MMOL/L (98-107) Carbon Dioxide Level 30 MMOL/L (21-32) Anion Gap 8 mmol/L (5-15) Blood Urea Nitrogen 61 mg/dL (7-18) H Creatinine 1.7 MG/DL (0.55-1.30) H Estimate Glomerular Filtration Rate mL/min (>60) Glucose Level 120 MG/DL (74-106) H Lactic Acid Level 1.30 mmol/L (0.4-2.0) Calcium Level 10.1 MG/DL (8.5-10.1) Phosphorus Level 2.1 MG/DL (2.5-4.9) L Magnesium Level 2.9 MG/DL (1.8-2.4) H Total Bilirubin 0.5 MG/DL (0.2-1.0) Aspartate Amino Transferase (AST) 26 U/L (15-37) Alanine Aminotransferase (ALT) 19 U/L (12-78) Alkaline Phosphatase 118 U/L (46-116) H Total Creatine Kinase 71 U/L (26-308) Creatine Kinase MB 0.8 NG/ML (0.0-3.6) Creatine Kinase MB Relative Index 1.1 Troponin I 0.042 ng/mL (0.000-0.056) Pro-B-Type Natriuretic Peptide 1099 pg/mL (0-125) H Total Protein 7.7 G/DL (6.4-8.2) Albumin 2.9 G/DL (3.4-5.0) L Globulin 4.8 g/dL Albumin/Globulin Ratio 0.6 (1.0-2.7) L Lipase 54 U/L (73-393) L Microbiology Date/Time Source Procedure Growth Status 02/15/19 15:30 Nasal Nares - Final Complete 02/15/19 15:30 Nasal Nares - Final Complete EKG Diagnostic Results EKG Time: 14:46 EP Interpretation: NSR, rate 93, QTc 420, no acute ST elevations, left axis deviation Rhythm Strip Diag. Results Rhythm Strip Time: 14:51 EP Interpretation: yes Rate: 96 Rhythm: NSR, no PVC's, no ectopy Chest X-Ray Diagnostic Results Chest X-Ray Diagnostic Results : Chest X-Ray Ordered: Yes # of Views/Limited/Complete: 1 View Indication: Other - preop EP Interpretation: Yes Interpretation: no consolidation, no effusion, no pneumothorax, no acute cardiopulmonary disease Impression: No acute disease Electronically Signed by: Jordon Saeed MD CT/MRI/US Diagnostic Results CT/MRI/US Diagnostic Results : Impression Preliminary Findings Only See Final Report For Complete Findings CT ABDOMEN & PELVIS With Contrast: Massive fecal impaction with massive stool burden. Colonic distention. Percutaneous G-tube. Colonic diverticula without diverticulitis. Cholelithiasis. 5 cm cystic lesion, could be arising exophytically from the pancreas. Small low-attenuation focus related to the left kidney. No renal calculi or obstructive changes. Trace amounts of fluid in the peritoneal cavity Ankylosis at the pubic symphysis and SI joints. Peribronchial thickening. Basilar atelectasis/pneumonitis. Radiologist: Miriam Ratliff M.D. Study ready at 16:25 and initial results transmitted at 17:23 Last Vital Signs Date Time Temp Pulse Resp B/P (MAP) Pulse Ox O2 Delivery O2 Flow Rate FiO2 02/15/19 14:26 99.7 88 22 119/64 (82) 94 Room Air Disposition: ADMITTED INPATIENT Condition: Stable Jordon Saeed MD Feb 15, 2019 14:36
--- NOTE | 2019-02-15 14:36 | NUR ---
ED Nurse Note: PT BROUGHT IN BY AMBULANCE FROM [facility] DUE TO FEVER 101 F. TYLENOL 650 MG VIA G TUBE WAS GIVEN AT 1600. AWAKE BUT WITH FLAT AFFECT, WITHDRAWS TO PAIN, NO RESPIRATORY DISTRESS. NOTED DISTENDED ABDOMEN. G TUBE IN PLACE.
[2019-02-15] MEDS ORDERED: Omnipaque-300 100ml vial INJ PRN (14:45)
[2019-02-15] MEDS ORDERED: Metoclopramide 10mg/2ml Inj IVP ONE (14:45)
[2019-02-15] MEDS ORDERED: DiphenhydrAMINE 50mg/ml Inj IVP ONE (14:45)
[2019-02-15] MEDS ORDERED: Vancomycin 1.5 GM in NS 275 ML IVPB ONE (14:45)
[2019-02-15] MEDS ORDERED: Morphine Sulfate 4mg/ml Inj (IV USE ONLY) IVP ONE (14:45)
[2019-02-15] MEDS ORDERED: Cefepime HCl 2 GM in NS 110 ML IV SCH (14:45)
--- NOTE | 2019-02-15 15:03 | NUR ---
ED Nurse Note: COLLECTED BLOOD/URINE THEN SENT.
[2019-02-15 15:14] LABS: BILIRUBIN, URINE NEGATIVE (NEGATIVE); GLUCOSE, URINE (UA) NEGATIVE (NEGATIVE); KETONES,URINE NEGATIVE (NEGATIVE); LEUKOCYTE ESTERASE ,URINE NEGATIVE (NEGATIVE); NITRITE,URINE NEGATIVE (NEGATIVE); PH,URINE 5 (4.5-8.0); PROTEIN,URINE 3+ (NEGATIVE); UROBILINOGEN,URINE NORMAL MG/DL (0.0-1.0)
[2019-02-15 15:15] LABS: APPEARANCE,URINE CLEAR; COLOR,URINE YELLOW
[2019-02-15 15:18] LABS: BASOPHILS % (AUTO) 0.9 % (0.0-2.0); EOSINOPHILS % (AUTO) 0.1 % (0.0-3.0); HEMATOCRIT 36.4 % (42.0-52.0); HEMOGLOBIN 11.7 G/DL (14.2-18.0); LYMPHOCYTES % (AUTO) 15.2 % (20.0-45.0); MEAN CORPUSCULAR VOLUME 84 FL (80-99); MONOCYTES % (AUTO) 9.5 % (1.0-10.0); NEUTROPHILS % (AUTO) 74.3 % (45.0-75.0); PLATELET COUNT 290 K/UL (150-450); RED BLOOD COUNT 4.34 M/UL (4.70-6.10); RED CELL DISTRIBUTION WIDTH 14.3 % (11.6-14.8); WHITE BLOOD COUNT 13.6 K/UL (4.8-10.8)
[2019-02-15 15:27] LABS: INR 0.9 (0.9-1.1)
[2019-02-15 15:30] LABS: ANION GAP 8 mmol/L (5-15); BLOOD UREA NITROGEN 61 mg/dL (7-18); CALCIUM 10.1 MG/DL (8.5-10.1); CARBON DIOXIDE 30 MMOL/L (21-32); CHLORIDE 101 MMOL/L (98-107); CREATININE 1.7 MG/DL (0.55-1.30); POTASSIUM 5.1 MMOL/L (3.5-5.1); SODIUM 139 MMOL/L (136-145)
[2019-02-15 15:45] LABS: ALANINE AMINOTRANSFERASE 19 U/L (12-78); ALBUMIN 2.9 G/DL (3.4-5.0); ALBUMIN/GLOBULIN RATIO 0.6 (1.0-2.7); ALKALINE PHOSPHATASE 118 U/L (46-116); ASPARTATE AMINO TRANSFERASE 26 U/L (15-37); BILIRUBIN,TOTAL 0.5 MG/DL (0.2-1.0); CKMB 0.8 NG/ML (0.0-3.6); CREATINE KINASE 71 U/L (26-308); PHOSPHORUS 2.1 MG/DL (2.5-4.9)
[2019-02-15 16:35] VITALS: BP 132/60
[2019-02-15] MEDS ORDERED: Fleet's Mineral Oil Enema RECTAL ONE (17:00)
--- NOTE | 2019-02-15 17:19 | NUR ---
ED Nurse Note: DR MARK AT THE BED SIDE FOR FECAL DISIMPACTION.
--- NOTE | 2019-02-15 17:24 | Diagnostic Imaging Report ---
Indication: Abdominal pain Technique: Continuous helical transaxial imaging of the abdomen and pelvis was obtained from the lung bases to the pubic symphysis. No intravenous contrast was administered. Coronal 2-D reformats were also obtained. Automatic Exposure Control was utilized. Total Dose length Product (DLP): 1201.[address] Dose Index Volume (CTDIvol): 19.4 mGy Comparison: 09/30/2014 Findings: There is a gastrostomy tube present. Calcified granuloma noted at the right lung base. Gallstones are present. There is a massive distention of the rectum and the sigmoid colon due to fecal material and impaction. There is no free fluid. Bladder is nondistended. Bilateral inguinal hernias containing fat demonstrated. There is narrowing of intervertebral discs and accompanying endplate osteophyte formation. Hypertrophied facet joints also demonstrated.. Moderate calcification of aorta noted. Tiny exophytic lesion in the left kidney may be cystic but too small to determine. Appearance was similar previously. IMPRESSION: Massive fecal retention impaction. Gallstones Atherosclerotic vascular disease Spondylosis Gastrostomy Bilateral inguinal hernias containing fat Degenerative changes of the spine. [facility] has communicated the preliminary results to the Emergency Department. Their findings are largely concordant with this report. The CT scanner at [facility] is accredited by the [employer] and the scans are performed using dose optimization techniques as appropriate to a performed exam including Automatic Exposure control.
[2019-02-15 18:37] VITALS: BP 122/57
--- NOTE | 2019-02-15 19:09 | NUR ---
HAND-OFF: Report given to BRADFORD GANNON.
--- NOTE | 2019-02-15 21:00 | NUR ---
TRANSFER TO FLOOR: Patient transferred to as ordered, per Dr Joe. Report given to TERESSA Velazquez. Belongings and medications given to . Family and or S/O informed of transfer.
--- NOTE | 2019-02-15 21:30 | NUR ---
NURSE NOTES: received pt from Janeth GANNON., pt arrived from floor, VS/106/66 HR 88 O2sat 96% temp 99.3. Aox1. amharic speaker, incontinent, MAGUE bilateral.sinus rythm, IV 22G Right Wrist clean, intanct, and patent. ABD distended and round, RA no SOB noted. pt is sleeping, call light within reach, will continue to care with plan of care.
--- NOTE | 2019-02-15 22:30 | NUR ---
NURSE NOTES: received orders from Dr. Joe regarding admitting orders. will carry on.
[2019-02-15] MEDS ORDERED: Morphine Sulfate 2mg/ml Inj(IV/IM USE ONLY) IVP PRN (23:00)
[2019-02-15] MEDS ORDERED: B COMPLEX-FOLI1 EACH GT (23:33)
[2019-02-16] VITALS: BP 114/63
[2019-02-16] MEDS ORDERED: D5 1/2NS 1,000 ML IV SCH
[2019-02-16] MEDS ORDERED: LEVEMIR100 UNIT/1 SUBQ (02:36)
[2019-02-16] MEDS ORDERED: Albuterol/Ipratropium 3ml neb HHN PRN (02:45)
[2019-02-16] MEDS ORDERED: Milk of Magnesia 30ml Ud ORAL PRN (02:45)
[2019-02-16] MEDS ORDERED: Nitroglycerin Subl 0.4mg tab SL PRN (02:45)
[2019-02-16] MEDS ORDERED: Milk of Magnesia 30ml Ud GT PRN (03:00)
[2019-02-16 04:00] VITALS: BP 130/61
--- NOTE | 2019-02-16 04:00 | NUR ---
NURSE NOTES: pt bath given, oral care given, pt is sleeping on the bed. V/s are stable.
--- NOTE | 2019-02-16 04:00 | NUR ---
NURSE NOTES: gave bath and oral care,no sob noted. call light within reach. Addendum: 02/17/19 at 0626 by INDIO GERMAIN RN wrong time
[2019-02-16] MEDS: Cefepime HCl 2 GM in D5W 55 ML IVPB SCH ×2 (04:03→15:39)
[2019-02-16 04:49] LABS: ANION GAP 5 mmol/L (5-15); BLOOD UREA NITROGEN 59 mg/dL (7-18); CARBON DIOXIDE 29 MMOL/L (21-32); CHLORIDE 106 MMOL/L (98-107); CREATININE 1.8 MG/DL (0.55-1.30); POTASSIUM 4.4 MMOL/L (3.5-5.1); SODIUM 140 MMOL/L (136-145)
[2019-02-16] MEDS ORDERED: HydrALAZINE 25mg tab GT SCH (06:00)
[2019-02-16] MEDS: NovoLOG Insulin Flexpen SUBQ SCH ×4 (06:30→21:20)
[2019-02-16] MEDS ORDERED: NovoLOG Insulin Flexpen SUBQ SCH (06:30)
--- NOTE | 2019-02-16 06:48 | NUR ---
NURSE NOTES: Jeramie from Lab notified to get CBC for the pt Stat
[2019-02-16 07:06] LABS: BASOPHILS % (AUTO) 0.7 % (0.0-2.0); EOSINOPHILS % (AUTO) 0.8 % (0.0-3.0); HEMATOCRIT 27.8 % (42.0-52.0); HEMOGLOBIN 9.2 G/DL (14.2-18.0); LYMPHOCYTES % (AUTO) 12.9 % (20.0-45.0); MEAN CORPUSCULAR VOLUME 82 FL (80-99); MONOCYTES % (AUTO) 8.2 % (1.0-10.0); NEUTROPHILS % (AUTO) 77.4 % (45.0-75.0); PLATELET COUNT 244 K/UL (150-450); RED BLOOD COUNT 3.38 M/UL (4.70-6.10); RED CELL DISTRIBUTION WIDTH 13.8 % (11.6-14.8); WHITE BLOOD COUNT 11.9 K/UL (4.8-10.8)
--- NOTE | 2019-02-16 07:19 | NUR ---
HAND-OFF: Report given to Soraida GANNON.
--- NOTE | 2019-02-16 07:20 | NUR ---
NURSE NOTES: Received pt from TERESSA Trivedi. Pt is observed laying in bed with eyes closed. Opens eyes to voice. Aox1. Norwegian speaker. SR on quality assurance monitor body. On room air, O2Sat 94%. Left thumb #22g running D51/2NS @ 60mL/hr. Pt is currently NPO until evaluated by dietary. Holliday catheter noted, patent and draining yellow urine. call light within reach, will resume plan of care.
[2019-02-16 08:00] VITALS: BP 152/82
[2019-02-16] MEDS: Levemir Flexpen SUBQ SCH ×2 (09:00→18:53)
[2019-02-16] MEDS ORDERED: Docusate 100mg/10ml Liq GT SCH (09:00)
[2019-02-16] MEDS ORDERED: Gabapentin 300 MG/6 ML Soln GT SCH (09:00)
[2019-02-16] MEDS: Gabapentin 300 MG/6 ML Soln GT SCH ×3 (10:08→18:21)
[2019-02-16] MEDS: Aspirin Baby 81mg GT SCH (10:09)
--- NOTE | 2019-02-16 10:09 | General Progress Note ---
Assessment/Plan Problem List: (1) Anemia ICD Codes: D64.9 - Anemia, unspecified SNOMED: 190821187 (2) Diverticulosis ICD Codes: K57.90 - Diverticulosis of intestine, part unspecified, without perforation or abscess without bleeding SNOMED: 768833004 (3) Pancreatic cyst ICD Codes: K86.2 - Cyst of pancreas SNOMED: 56122458 (4) HTN (hypertension) ICD Codes: I10 - Essential (primary) hypertension SNOMED: 64456325 (5) CHF (congestive heart failure) ICD Codes: I50.9 - Heart failure, unspecified SNOMED: 70669674 (6) Diabetes ICD Codes: E11.9 - Type 2 diabetes mellitus without complications SNOMED: 33079051 (7) Dementia ICD Codes: F03.90 - Unspecified dementia without behavioral disturbance SNOMED: 65689345 (8) Feeding by G-tube ICD Codes: Z93.1 - Gastrostomy status SNOMED: 962285604, 409044815 Assessment/Plan: will replace the Holliday at the GT site with GT anemia work up bowel regimen swallow eval GTF hold work up for panc cyst given poor protoplasm Subjective ROS Limited/Unobtainable: No Allergies: Coded Allergies: NO KNOWN DRUG ALLERGIES (Unverified Allergy, Unknown, 05/29/14) Objective Last 24 Hour Vital Signs Date Time Temp Pulse Resp B/P (MAP) Pulse Ox O2 Delivery O2 Flow Rate FiO2 02/16/19 08:00 97.6 78 20 152/82 (105) 94 02/16/19 05:32 130/61 02/16/19 04:00 98.6 72 18 130/61 (84) 94 02/16/19 04:00 79 02/16/19 01:32 Room Air 02/16/19 00:00 98.2 78 18 114/63 (80) 94 02/15/19 23:26 93 02/15/19 21:30 Room Air 02/15/19 21:00 100.3 85 18 122/57 100 Room Air 02/15/19 18:37 100.3 85 18 122/57 100 Room Air 02/15/19 16:35 100.3 79 16 132/60 99 Room Air 02/15/19 15:39 99.7 02/15/19 14:36 100.3 87 20 120/54 100 Room Air 02/15/19 14:36 87 20 Room Air 02/15/19 14:26 99.7 88 22 119/64 (82) 94 Room Air Intake and Output 02/15/19 02/16/19 19:00 07:00 Intake Total 1210 ml 385 ml Output Total 200 ml Balance 1210 ml 185 ml Intake Free Water 30 ml IV Total 1210 ml 355 ml Output Urine Total 200 ml # Voids 1 1 Laboratory Tests 02/15/19 14:50: White Blood Count 13.6H, Red Blood Count 4.34L, Hemoglobin 11.7L, Hematocrit 36.4L, Mean Corpuscular Volume 84, Mean Corpuscular Hemoglobin 26.9L, Mean Corpuscular Hemoglobin Concent 32.1, Red Cell Distribution Width 14.3, Platelet Count 290, Mean Platelet Volume 6.7, Neutrophils (%) (Auto) 74.3, Lymphocytes (% ) (Auto) 15.2L, Monocytes (%) (Auto) 9.5, Eosinophils (%) (Auto) 0.1, Basophils (%) (Auto) 0.9, Prothrombin Time 10.1, Prothromb Time International Ratio 0.9, Activated Partial Thromboplast Time 25, Urine Color Yellow, Urine Appearance Clear, Urine pH 5, Urine Specific [place] 1.010, Urine Protein 3+H, Urine Glucose (UA) Negative, Urine Ketones Negative, Urine Blood 1+H, Urine Nitrite Negative, Urine Bilirubin Negative, Urine Urobilinogen Normal, Urine Leukocyte Esterase Negative, Urine RBC 5-10H, Urine WBC 0-2, Urine Squamous Epithelial Cells Few, Urine Amorphous Sediment ManyH, Urine Bacteria ModerateH, Sodium Level 139, Potassium Level 5.1, Chloride Level 101, Carbon Dioxide Level 30, Anion Gap 8, Blood Urea Nitrogen 61H, Creatinine 1.7H, Estimat Glomerular Filtration Rate , Glucose Level 120H, Lactic Acid Level 1.30, Calcium Level 10.1 , Phosphorus Level 2.1L, Magnesium Level 2.9H, Total Bilirubin 0.5, Aspartate Amino Transf (AST/SGOT) 26, Alanine Aminotransferase (ALT/SGPT) 19, Alkaline Phosphatase 118H, Total Creatine Kinase 71, Creatine Kinase MB 0.8, Creatine Kinase MB Relative Index 1.1, Troponin I 0.042, Pro-B-Type Natriuretic Peptide 1099H, Total Protein 7.7, Albumin 2.9L, Globulin 4.8, Albumin/Globulin Ratio 0.6L, Lipase 54L 02/16/19 03:40: Sodium Level 140, Potassium Level 4.4, Chloride Level 106, Carbon Dioxide Level 29, Anion Gap 5, Blood Urea Nitrogen 59H, Creatinine 1.8H, Estimat Glomerular Filtration Rate , Glucose Level 97, Calcium Level 9.0, Phosphorus Level [Pending ], Magnesium Level [Pending], Total Bilirubin [Pending], Aspartate Amino Transf (AST/SGOT) [Pending], Alanine Aminotransferase (ALT/SGPT) [Pending], Alkaline Phosphatase [Pending], Pro-B-Type Natriuretic Peptide [Pending], Total Protein [ Pending], Albumin [Pending], Hemoglobin A1c [Pending], Uric Acid [Pending], Direct Bilirubin [Pending], Gamma Glutamyl Transpeptidase [Pending], C-Reactive Protein, Quantitative [Pending], Triglycerides Level [Pending], Cholesterol Level [Pending], LDL Cholesterol [Pending], HDL Cholesterol [Pending], Cholesterol/HDL Ratio [Pending], Thyroid Stimulating Hormone (TSH) [Pending] 02/16/19 03:45: White Blood Count 11.9H, Red Blood Count 3.38L, Hemoglobin 9.2L, Hematocrit 27.8L, Mean Corpuscular Volume 82, Mean Corpuscular Hemoglobin 27.1, Mean Corpuscular Hemoglobin Concent 33.0, Red Cell Distribution Width 13.8, Platelet Count 244, Mean Platelet Volume 7.2, Neutrophils (%) (Auto) 77.4H, Lymphocytes ( %) (Auto) 12.9L, Monocytes (%) (Auto) 8.2, Eosinophils (%) (Auto) 0.8, Basophils (%) (Auto) 0.7 Height (Feet): 5 Height (Inches): 8.00 Weight (Pounds): 178 General Appearance: lethargic EENT: normal ENT inspection Neck: supple Cardiovascular: normal rate Respiratory/Chest: decreased breath sounds Abdomen: soft, hypoactive bowel sounds, distended Extremities: non-tender Faustino Cheung MD Feb 16, 2019 10:09
[2019-02-16] MEDS: Heparin 5000 units/ml inj SUBQ SCH ×2 (10:11→18:03)
[2019-02-16 10:16] LABS: ALANINE AMINOTRANSFERASE 19 U/L (12-78); ALBUMIN 2.5 G/DL (3.4-5.0); ALKALINE PHOSPHATASE 93 U/L (46-116); ASPARTATE AMINO TRANSFERASE 15 U/L (15-37); BILIRUBIN,DIRECT 0.1 MG/DL (0.0-0.3); BILIRUBIN,TOTAL 0.4 MG/DL (0.2-1.0); CHOLESTEROL 106 MG/DL (< 200); GAMMA GLUTAMYL TRANSPEPTIDASE 25 U/L (5-85); HDL CHOLESTEROL 34 MG/DL (40-60); PHOSPHORUS 2.4 MG/DL (2.5-4.9); TRIGLYCERIDES 132 MG/DL (30-150)
--- NOTE | 2019-02-16 10:37 | NUR ---
HAND-OFF: Report given to TERESSA Pichardo.
--- NOTE | 2019-02-16 10:38 | NUR ---
NURSE NOTES: Received bedside report from Soraida GANNON.
--- NOTE | 2019-02-16 11:31 | NUR ---
RD ASSESSMENT & RECOMMENDATIONS SEE CARE ACTIVITY FOR COMPLETE ASSESSMENT DAILY ESTIMATED NEEDS: Needs based on DM, wound/ 67kg abw 25-30 kcals/kg total kcals 1.25-1.5 g protein/kg 84-101 g total protein 25-30 mL/kg 8836-2664 total fluid mLs NUTRITION DIAGNOSIS: *Swallowing difficulty R/T dysphagia, h/o CVA as evidenced by pt is PEG dep. CURRENT TF:NPO PO DIET RECOMMENDATIONS: STERILE PROCESS TECH eval pending ENTERAL NUTRITION RECOMMENDATIONS: Glucerna 1.5 @ 50ml/hr x 24 hrs to provide 1200ml, 1800 kcal, 99g pro, 911mll free H2O * As able, rec Glucerna 1.5 for carb control. Start @30ml/hr, advance as tolerated 10ml/hr q4-6 hrs to goal. * HOB over 30 degrees/ water flush per MD. * TF at goal meets 100% est needs. ADDITIONAL RECOMMENDATIONS: * per SNF: 66inches + 167lbs (10/3 wts) * Wound care: with active TF order, add SUSIE BID (f/up w/ WC eval) * On lactulose, monitor lytes daily, replete as needed * Rec carb control formula as above (A1C 6.7) .
[2019-02-16 12:00] VITALS: BP 130/54
[2019-02-16] MEDS: Lactulose 20gm/30ml UDC ORAL SCH ×2 (13:00→17:59)
--- NOTE | 2019-02-16 13:44 | Consultation ---
History of Present Illness General Date patient seen: Feb 16, 2019 Chief Complaint: Fever Reason for Consultation: antimicrobial recomendation Present Illness HPI 83yo gentleman with PMH HTN, CVA, asthma, DM, dementia presents from SNF with abdominal distension, abdominal pain, fever, chills. ID consulted for antimicrobial recommendation. Pt has dysarthria so HPI limited. Pt groans yes when asked about abdominal pain. Denies chest pain or sob. Pt asking for water. Allergies: Coded Allergies: NO KNOWN DRUG ALLERGIES (Unverified Allergy, Unknown, 05/29/14) Medication History Scheduled Amlodipine Besylate (Norvasc), 5 MG GT DAILY, (Reported) Aspirin* (Aspir 81*), 81 MG GT DAILY, (Reported) Calcium/Cranberry Fruit (Cranberry 400 Mg Caplet), 1 EACH PO EVERY 12 HOURS, ( Reported) Cyanocobalamin/Fa/Pyridoxine (B Complex-Folic Acid Tablet), 1 TAB ORAL DAILY, ( Reported) Docusate Sodium (Docusate Sodium), 100 MG GT BID, (Reported) Fish Oil (Fish Oil 1,000 mg Capsule), 1,000 MG GT DAILY, (Reported) Gabapentin* (Neurontin*), 300 MG GT THREE TIMES A DAY, (Reported) Hydralazine Hcl* (Hydralazine Hcl*), 25 MG GT EVERY 8 HOURS, (Reported) Insulin Detemir (Levemir), 15 SUBQ BID, (Reported) Scheduled PRN Acetaminophen* (Acetaminophen 325MG Tablet*), 650 MG GT Q4H PRN for Fever/ Headache/Mild Pain, (Reported) Magnesium Hydroxide* (Milk Of Magnesia*), 30 ML ORAL HS PRN for Constipation, ( Reported) Na Phos,M-B/Na Phos,Di-Ba* (Fleet Enema*), 133 ML RECTAL DAILY PRN for CON, ( Reported) Miscellaneous Medications Insulin Lispro (Humalog), Unknown Dose SUBQ, (Reported) Nitroglycerin (Nitroglycerin), 0.4 MG SL, (Reported) Discontinued Medications Acetaminophen (Tylenol), 325 MG Q6H, (Reported) Discontinued Reason: Therapy completed Acetaminophen 160MG/5ML* (Acetaminophen*), 20 ML GT Q4HR PRN for Fever/Headache/ Mild Pain, (Reported) Discontinued Reason: MD discontinued med Acetaminophen* (Acetaminophen 325MG Tablet*), 650 MG ORAL Q4H PRN for Fever/ Headache/Mild Pain, (Reported) Discontinued Reason: Therapy completed Acetaminophen* (Acetaminophen 325MG Tablet*), 650 MG ORAL Q4H PRN for Fever/ Headache/Mild Pain, (Reported) Discontinued Reason: Therapy completed Amlodipine Besylate (Norvasc), 2.5 MG GT DAILY Discontinued Reason: Therapy completed Calcium Carbonate (Calcium Carbonate), 500 MG GT BID, (Reported) Discontinued Reason: Therapy completed Calcium Carbonate/Vitamin D3 (Calcium + Vitamin D Tablet), Unknown Dose PO, ( Reported) Discontinued Reason: Therapy completed Clonidine HCl (Clonidine HCl), 0.1 MG GT, (Reported) Discontinued Reason: Therapy completed Furosemide* (Lasix*), 40 MG ORAL DAILY Discontinued Reason: Therapy completed Furosemide* (Lasix*), 40 MG GT DAILY, (Reported) Discontinued Reason: Therapy completed Gabapentin (Neurontin), 300 MG GT THREE TIMES A DAY, (Reported) Discontinued Reason: Therapy completed Gabapentin (Gabapentin), 300 MG GT THREE TIMES A DAY, (Reported) Discontinued Reason: Therapy completed Gabapentin (Neurontin), 300 MG ORAL BEDTIME, (Reported) Discontinued Reason: Therapy completed Glipizide* (Glucotrol*), 10 MG GT BID, (Reported) Discontinued Reason: Therapy completed Glyburide* (Diabeta*), 5 MG GT BIAC, (Reported) Discontinued Reason: Therapy completed Hydralazine HCl (Hydralazine HCl), 50 MG GT EVERY 8 HOURS Discontinued Reason: Therapy completed Insulin Aspart (Novolog Flexpen), 0 UNITS SUBQ BEFORE MEALS AND HS Discontinued Reason: Therapy completed Insulin Aspart (Novolog Flexpen), Q6HR, (Reported) Discontinued Reason: Therapy completed Insulin Aspart (Novolog Flexpen), 0 UNITS SUBQ BEFORE MEALS AND HS Discontinued Reason: Therapy completed Insulin Detemir (Levemir Flexpen), 26 UNITS SUBQ EVERY 12 HOURS Discontinued Reason: Therapy completed Insulin Glargine (Lantus), 32 UNITS SUBQ BEDTIME, (Reported) Discontinued Reason: MD discontinued med Insulin Lispro (Humalog), 0 SUBQ, (Reported) Discontinued Reason: Therapy completed Insulin Lispro (Humalog), 0 SUBQ, (Reported) Discontinued Reason: Therapy completed Ipratropium/Albuterol Sulfate (DuoNeb 0.5-3(2.5)mg/3ml), 3 ML HHN, (Reported) Discontinued Reason: Therapy completed Levofloxacin (Levofloxacin*), 750 MG GT QOD, (Reported) Discontinued Reason: Therapy completed Levofloxacin* (Levaquin*), 250 MG GT DAILY Discontinued Reason: Therapy completed Levofloxacin-D5w 500 Mg/100 Ml* (Levofloxacin-D5w 500 Mg/100 Ml*), 500 MG GT QOD , (Reported) Discontinued Reason: Therapy completed Multivitamin With Minerals (Multivitamins With Minerals*), 1 TAB ORAL DAILY, ( Reported) Discontinued Reason: Therapy completed Na Phos,M-B/Na Phos,Di-Ba* (Fleet Enema*), 118 ML RECTAL DAILY, (Reported) Discontinued Reason: Therapy completed Nystatin (Nystatin), 100,000 UNIT ORAL BID, (Reported) Discontinued Reason: Therapy completed Polyethylene Glycol 3350* (Miralax*), 17 GM ORAL DAILY PRN for Constipation, ( Reported) Discontinued Reason: Therapy completed Pravastatin Sod (Pravastatin Sod), 40 MG GT BEDTIME, (Reported) Discontinued Reason: Therapy completed Vit C/Ascorbate Ca/Ascorb Sod (Vitamin C 500 Mg/15 Ml Liquid), 500 MG GT BID, ( Reported) Discontinued Reason: Therapy completed Patient History Healthcare decision maker Resuscitation status Full Code Advanced Directive on File Patient History Narrative PMH: HTN, CVA, DM, dementia, G tube SHx: reviewed FHx: noncontributory Review of Systems ROS Narrative limited due to pt's status Physical Exam General Appearance: no apparent distress Lines, tubes and drains: gtube HEENT: anicteric Neck: non-tender Respiratory/Chest: no respiratory distress, no accessory muscle use, decreased breath sounds, rhonchi - bilaterally Cardiovascular/Chest: normal rate, regular rhythm Abdomen: hypoactive bowel sounds, distended Skin Exam: warm/dry Neurologic: alert Last 24 Hour Vital Signs Date Time Temp Pulse Resp B/P (MAP) Pulse Ox O2 Delivery O2 Flow Rate FiO2 02/16/19 12:00 98.0 74 20 130/54 (79) 95 02/16/19 10:10 78 152/32 02/16/19 10:09 152/82 02/16/19 09:00 Room Air 02/16/19 08:00 97.6 78 20 152/82 (105) 94 02/16/19 08:00 78 02/16/19 05:32 130/61 02/16/19 04:00 98.6 72 18 130/61 (84) 94 02/16/19 04:00 79 02/16/19 01:32 Room Air 02/16/19 00:00 98.2 78 18 114/63 (80) 94 02/15/19 23:26 93 02/15/19 21:30 Room Air 02/15/19 21:00 100.3 85 18 122/57 100 Room Air 02/15/19 18:37 100.3 85 18 122/57 100 Room Air 02/15/19 16:35 100.3 79 16 132/60 99 Room Air 02/15/19 15:39 99.7 02/15/19 14:36 100.3 87 20 120/54 100 Room Air 02/15/19 14:36 87 20 Room Air 02/15/19 14:26 99.7 88 22 119/64 (82) 94 Room Air Intake and Output 02/15/19 02/16/19 19:00 07:00 Intake Total 1210 ml 445 ml Output Total 200 ml Balance 1210 ml 245 ml Intake Free Water 30 ml IV Total 1210 ml 415 ml Output Urine Total 200 ml # Voids 1 1 Laboratory Tests Test 02/15/19 14:50 02/16/19 03:40 02/16/19 03:45 White Blood Count 13.6 K/UL (4.8-10.8) H 11.9 K/UL (4.8-10.8) H Red Blood Count 4.34 M/UL (4.70-6.10) L 3.38 M/UL (4.70-6.10) L Hemoglobin 11.7 G/DL (14.2-18.0) L 9.2 G/DL (14.2-18.0) L Hematocrit 36.4 % (42.0-52.0) L 27.8 % (42.0-52.0) L Mean Corpuscular Volume 84 FL (80-99) 82 FL (80-99) Mean Corpuscular Hemoglobin 26.9 PG (27.0-31.0) L 27.1 PG (27.0-31.0) Mean Corpuscular Hemoglobin Concent 32.1 G/DL (32.0-36.0) 33.0 G/DL (32.0-36.0) Red Cell Distribution Width 14.3 % (11.6-14.8) 13.8 % (11.6-14.8) Platelet Count 290 K/UL (150-450) 244 K/UL (150-450) Mean Platelet Volume 6.7 FL (6.5-10.1) 7.2 FL (6.5-10.1) Neutrophils (%) (Auto) 74.3 % (45.0-75.0) 77.4 % (45.0-75.0) H Lymphocytes (%) (Auto) 15.2 % (20.0-45.0) L 12.9 % (20.0-45.0) L Monocytes (%) (Auto) 9.5 % (1.0-10.0) 8.2 % (1.0-10.0) Eosinophils (%) (Auto) 0.1 % (0.0-3.0) 0.8 % (0.0-3.0) Basophils (%) (Auto) 0.9 % (0.0-2.0) 0.7 % (0.0-2.0) Prothrombin Time 10.1 SEC (9.30-11.50) Prothromb Time International Ratio 0.9 (0.9-1.1) Activated Partial Thromboplast Time 25 SEC (23-33) Urine Color Yellow Urine Appearance Clear Urine pH 5 (4.5-8.0) Urine Specific Gatzke 1.010 (1.005-1.035) Urine Protein 3+ (NEGATIVE) H Urine Glucose (UA) Negative (NEGATIVE) Urine Ketones Negative (NEGATIVE) Urine Blood 1+ (NEGATIVE) H Urine Nitrite Negative (NEGATIVE) Urine Bilirubin Negative (NEGATIVE) Urine Urobilinogen Normal MG/DL (0.0-1.0) Urine Leukocyte Esterase Negative (NEGATIVE) Urine RBC 5-10 /HPF (0 - 0) H Urine WBC 0-2 /HPF (0 - 0) Urine Squamous Epithelial Cells Few /LPF (NONE/OCC) Urine Amorphous Sediment Many /LPF (NONE) H Urine Bacteria Moderate /HPF (NONE) H Sodium Level 139 MMOL/L (136-145) 140 MMOL/L (136-145) Potassium Level 5.1 MMOL/L (3.5-5.1) 4.4 MMOL/L (3.5-5.1) Chloride Level 101 MMOL/L (98-107) 106 MMOL/L (98-107) Carbon Dioxide Level 30 MMOL/L (21-32) 29 MMOL/L (21-32) Anion Gap 8 mmol/L (5-15) 5 mmol/L (5-15) Blood Urea Nitrogen 61 mg/dL (7-18) H 59 mg/dL (7-18) H Creatinine 1.7 MG/DL (0.55-1.30) H 1.8 MG/DL (0.55-1.30) H Estimat Glomerular Filtration Rate mL/min (>60) mL/min (>60) Glucose Level 120 MG/DL (74-106) H 97 MG/DL (74-106) Lactic Acid Level 1.30 mmol/L (0.4-2.0) Calcium Level 10.1 MG/DL (8.5-10.1) 9.0 MG/DL (8.5-10.1) Phosphorus Level 2.1 MG/DL (2.5-4.9) L 2.4 MG/DL (2.5-4.9) L Magnesium Level 2.9 MG/DL (1.8-2.4) H 2.7 MG/DL (1.8-2.4) H Total Bilirubin 0.5 MG/DL (0.2-1.0) 0.4 MG/DL (0.2-1.0) Aspartate Amino Transf (AST/SGOT) 26 U/L (15-37) 15 U/L (15-37) Alanine Aminotransferase (ALT/SGPT) 19 U/L (12-78) 19 U/L (12-78) Alkaline Phosphatase 118 U/L (46-116) H 93 U/L (46-116) Total Creatine Kinase 71 U/L (26-308) Creatine Kinase MB 0.8 NG/ML (0.0-3.6) Creatine Kinase MB Relative Index 1.1 Troponin I 0.042 ng/mL (0.000-0.056) Pro-B-Type Natriuretic Peptide 1099 pg/mL (0-125) H 822 pg/mL (0-125) H Total Protein 7.7 G/DL (6.4-8.2) 6.6 G/DL (6.4-8.2) Albumin 2.9 G/DL (3.4-5.0) L 2.5 G/DL (3.4-5.0) L Globulin 4.8 g/dL Albumin/Globulin Ratio 0.6 (1.0-2.7) L Lipase 54 U/L (73-393) L Hemoglobin A1c 6.7 % (4.3-6.0) H Uric Acid 7.8 MG/DL (2.6-7.2) H Direct Bilirubin 0.1 MG/DL (0.0-0.3) Gamma Glutamyl Transpeptidase 25 U/L (5-85) C-Reactive Protein, Quantitative 17.8 mg/dL (0.00-0.90) H Triglycerides Level 132 MG/DL (30-150) Cholesterol Level 106 MG/DL (< 200) LDL Cholesterol 50 mg/dL (<100) HDL Cholesterol 34 MG/DL (40-60) L Cholesterol/HDL Ratio 3.1 (3.3-4.4) L Thyroid Stimulating Hormone (TSH) 4.390 uiU/mL (0.358-3.740) Microbiology Date/Time Source Procedure Growth Status 02/15/19 15:30 Nasal Nares - Final Complete 02/15/19 15:30 Nasal Nares - Final Complete 02/15/19 14:50 Urine,Clean Catch Urine Culture - Preliminary NO GROWTH Resulted 02/15/19 15:35 Rectum Received Height (Feet): 5 Height (Inches): 8.00 Weight (Pounds): 178 Medications Current Medications Medications (Trade) Dose Ordered Sig/Dimas Route PRN Reason Start Time Stop Time Status Last Admin Dose Admin Acetaminophen (Tylenol) 650 mg Q4H PRN ORAL FHMP 02/16/19 03:00 03/18/19 02:44 Albuterol/ Ipratropium (Albuterol/ Ipratropium) 3 ml Q6H PRN HHN Shortness of Breath 02/16/19 02:45 02/21/19 02:44 Amlodipine Besylate (Norvasc) 5 mg DAILY GT 02/16/19 09:00 03/18/19 08:59 02/16/19 10:10 Aspirin (ASA) 81 mg DAILY GT 02/16/19 09:00 03/18/19 08:59 02/16/19 10:09 Cefepime HCl 2 gm/ Dextrose 55 ml @ 110 mls/hr Q12H IVPB 02/16/19 03:00 02/23/19 02:59 02/16/19 04:03 Clonidine HCl (Catapres Tab) 0.1 mg QID ORAL 02/16/19 09:00 03/18/19 08:59 02/16/19 10:09 Dextrose (Dextrose 50%) 25 ml Q30M PRN IV Hypoglycemia 02/16/19 02:45 03/18/19 02:44 Dextrose (Dextrose 50%) 50 ml Q30M PRN IV Hypoglycemia 02/16/19 02:45 03/18/19 02:44 Dextrose/Sodium Chloride 1,000 ml @ 60 mls/hr [id number] IV 02/16/19 00:00 03/18/19 00:00 02/16/19 00:26 Docusate Sodium (Colace) 100 mg BID GT 02/16/19 09:00 03/18/19 08:59 02/16/19 10:07 Gabapentin (Neurontin) 300 mg THREE TIMES A DAY GT 02/16/19 09:00 03/18/19 08:59 02/16/19 10:08 Heparin Sodium (Porcine) (Heparin 5000 units/ml) 5,000 units BID SUBQ 02/16/19 09:00 03/18/19 08:59 02/16/19 10:11 Hydralazine HCl (Apresoline) 25 mg EVERY 8 HOURS GT 02/16/19 06:00 03/18/19 05:59 02/16/19 05:32 Insulin Aspart (NovoLOG) BEFORE MEALS AND HS SUBQ 02/16/19 06:30 03/18/19 06:29 Insulin Detemir (Levemir) 12 units BID SUBQ 02/16/19 09:00 03/18/19 08:59 Lactulose (Cephulac) 20 gm THREE TIMES A DAY ORAL 02/16/19 13:00 03/18/19 12:59 Magnesium Hydroxide (Mom) 30 ml Q24H PRN GT Constipation IF NO BM X 2 DAYS 02/16/19 03:00 03/18/19 02:44 Metronidazole 100 ml @ 100 mls/hr Q8HR IVPB 02/16/19 06:00 02/23/19 05:59 02/16/19 05:28 Morphine Sulfate (Morphine Sulfate) 2 mg Q4HR PRN IVP For Pain 02/15/19 23:00 02/22/19 22:59 Nitroglycerin (Ntg) 0.4 mg Q5M PRN SL Prn Chest Pain 02/16/19 02:45 03/18/19 02:44 Ondansetron HCl (Zofran) 4 mg Q4HR PRN IVP Nausea & Vomiting 02/15/19 23:00 03/17/19 22:59 Polyethylene Glycol (Miralax) 17 gm BEDTIME ORAL 02/16/19 21:00 03/18/19 20:59 Assessment/Plan Assessment/Plan: 83yo gentleman with PMH HTN, CVA, asthma, DM, dementia presents from SNF with abdominal distension, abdominal pain, fever, chills. ID consulted for antimicrobial recommendation. tmax 100.3 Leukocytosis, improving CRP 17.8 Lactate 1.3 UA negative flu swab negative r/o bacteremia BCx: P 02/15 CXR without acute disease Abdominal pain and Fecal impaction CT A/P: Massive fecal retention impaction. Gallstones. Atherosclerotic vascular disease. Spondylosis. Gastrostomy. Bilateral inguinal hernias containing fat. Degenerative changes of the spine. HTN CVA Asthma DM Dementia NARCISO/CKD Plan: continue Cefepime and flagyl #2 for now 02/15 SP Vancomycin #1 management of fecal impaction per primary aspiration precaution, elevate HOB, DVT PPX, Thank you for this consult. [facility] will continue to follow the patient with you. Joseluis Mace MD Feb 16, 2019 13:44
--- NOTE | 2019-02-16 14:22 | Cardiology Report ---
APPROVED REPORT EKG Measurement Heart [id number] Sinus rhythm with 1st degree AV block Left axis deviation Low voltage QRS Abnormal ECG
--- NOTE | 2019-02-16 14:23 | Diagnostic Imaging Report ---
Indication: Dyspnea Comparison: 06/07/2018 A single view chest radiograph was obtained. Findings: No definite infiltrate or pulmonary vascular congestion identified. The heart is enlarged. The aorta is mildly enlarged consistent with atherosclerotic vascular disease. The bones are osteopenic. Impression: No acute disease No significant change
--- NOTE | 2019-02-16 14:39 | Consultation ---
Consult Note Consult Note asked to eval at the request of Dr Joe for renal failure- seen in room 237 examined data reviewed 83 years old male with past medical history of hypertension, CVA, asthma, diabetes mellitus, dementia, resident of snf facility, brought in for abdominal distention, generalized abdominal pain, fever, chills, unknown aggravating relieving factors severity is severe, constant symptoms started 1 day prior to arrival, patient sent for evaluation. NO KNOWN DRUG ALLERGIES (Unverified Allergy, Unknown, 05/29/14) Past Medical History: No History, Except For Hx Hypertension: Yes Hx Asthma: Yes - bronchitis Hx Diabetes: Yes Hx Neurological Problems: Yes - CVA, dysphagia, encephalophaty Hx Dementia: Yes Hx Head Trauma: Yes Hx Aphasia: Yes Hx Weakness: Yes Assessment/Plan Renal failure- Acute on Chronic Fever Sepsis Fecal impaction UTI (urinary tract infection) Hydrate BP and BS check monitor renal parameters Laxatives antibiotics Hansel Kirkpatrick MD Feb 16, 2019 14:39
--- NOTE | 2019-02-16 15:14 | Diagnostic Imaging Report ---
Indication: Gastrostomy check Comparison: None Single view of the abdomen obtained Findings: Contrast noted within the fundus of the stomach. The tip of the gastrostomy tube is difficult to see on the single image obtained but appears to project over the stomach. There are distended loops of colon noted within the abdomen. Moderate stool demonstrated within the rectal vault which is distended. IMPRESSION: Contrast demonstrated within the stomach. The position of the gastrostomy balloon and catheter not well elucidated on this study. Fecal impaction
--- NOTE | 2019-02-16 15:14 | NUR ---
RADIOLOGY DEPT, ABDOMEN X-RAY WITH GASTRO PERFORMED.-P.DYE
--- NOTE | 2019-02-16 15:23 | NUR ---
ST NOTES: REFERRED FOR SWALLOW EVALUATION BY DR NOBLES, SEE FULL REPORT. DYSPHAGIA RISK FACTORS FOR THIS 83 Y.O.M.: ACUTE ISSUES: SEPSIS, AMS, FEVER, VOMITING, WEAKNESS, PER CXR: NO ACUTE PROCESS BUT SOUNDS CONGESTED AND NEEDS ORAL SUCTION (BILATERAL SULCI AND BACK OF THROAT). H/O PNA 05/22/17 ADMIT, DYSPHAGIA AND BRUXISM AND HAS A PEG, OVERWEIGHT, CVA RSW NONVERBAL AND HAS APHASIA AROUND 2014, DEMENTIA, HEAD TRAUMA, ENCEPHALOPATHY, MALNUTRITION, RENAL FAILURE, HTN, AND DM2. AT [facility] 06/02/14 HAD A MOD BARIUM SWALLOW STUDY WITH MILD-MOD OP DYSPHAGIA AND GIVEN ORAL GRAT NECTAR THICK LIQUIDS TSP ONLY. IN 05/22/17 HAS A SWALLOW EVAL (HAS PNA) AND NO PO RECOMMENDED UNTIL HE HAD A MOD BARIUM SWALLOW STUDY (UNABLE TO COMPLETE PRIOR TO DC DUE TO SCHEDULE CONFLICTS). AT [facility] HAD A PEG AND NO PO NOTED (GLUCERNA). CURRENTLY NPO AND ONLY GETTING PEG FEEDINGS. ALERT BUT NOT FOLLOWING ORAL COMMANDS EVEN IN UKRAINIAN WITH MAX VISUAL CUES. DID MOAN BUT MOSTLY NONVERBAL (APHASIA AND ? ORAL-VERBAL APRAXIA). INITIAL IMPRESSIONS: S/S OF AT LEAST A SIGNIFICANT SEVERE OROPHARYNGEAL DYSPHAGIA S/S OF POOR ORAL SECRETION MANAGEMENT AND REQUIRED MILD AMOUNTS OF YELLOW AND THICK SECRETIONS SUCTIONED FROM THE SIDES OF HIS MOUTH AND BACK OF THROAT. SOUNDS VERY CONGESTED AND MAY NEED DEEP NASAL SUCTION. GIVEN 1/4 TSP NECTAR THICK WATER TO SEE IF HE COULD MOVE BACK BOLUS FOR FUTURE MODIFIED BARIUM SWALLOW STUDY. ABLE TO MOVE BACK BOLUS AFTER A FEW SECONDS AND SWALLOWED WITH REDUCED HYOLARYNGEAL EXCURSION, NO ORAL RESIDUE NOR OVERT ASPIRATION BUT HAS SILENT ASPIRATION RISK. WILL HOLD ON FURTHER PO TRIALS GIVEN HIGH RISK FOR SILENT ASPIRATION AND POOR ABILITY TO COUGH UP HIS ORAL SECRETIONS. RECOMMENDATIONS CONTINUE WITH NPO ONLY GIVEN PEG FEEDINGS AND ORAL CARE FOR NOW (NEEDS TEETH BRUSHED ALSO). CONSIDER ORAL SUCTION PRN (MAY NEED RT TO COMPLETE DEEP NASAL SUCTION). CONSIDER MOD BARIUM SWALLOW STUDY WHEN READY TO FURTHER ASSESS SWALLOW, DETERMINE SILENT ASPIRATION RISK, AND ATTEMPT TRIAL TX TECHNIQUES SKILLED DYSPHAGIA MANAGEMENT AND TX AND COG-COM EVAL/TX FOR COMMUNICATION TIPS. EDUCATED/TRAINED RN (KAYLIE) IN POSTED PRECAUTIONS.
[2019-02-16] MEDS: D5 1/2NS 1,000 ML IV SCH (15:38)
[2019-02-16 16:00] VITALS: BP 140/58
--- NOTE | 2019-02-16 16:15 | History and Physical Report ---
DATE OF ADMISSION: 02/15/2019 TIME AND DATE SEEN: 02/16/2019 at 8 a.m. CONSULTANTS: 1. Faustino Cheung M.D. 2. Mina Brandt M.D. 3. Hansel Kirkpatrick M.D. CHIEF COMPLAINT: Altered mental status, abdominal pain, vomiting, UTI, sepsis. BRIEF HISTORY: This is an 83-year-old male from [facility], presented with above-mentioned diagnoses, admitted to step-down unit for further care. Currently, confused in bed, awake, not talking much. REVIEW OF SYSTEMS: Unavailable. PAST MEDICAL HISTORY: Includes diabetes, hypertension, dementia, CVA, CHF, acute renal failure. PAST SURGICAL HISTORY: G-tube. ALLERGIES: Denies. MEDICATIONS: Include heparin, Catapres, Norvasc, aspirin, Colace, insulin, hydralazine, cefepime, Tylenol, albuterol, Zofran, morphine. SOCIAL HISTORY: No smoking. No alcohol. No intravenous drug abuse. FAMILY HISTORY: Noncontributory. PHYSICAL EXAMINATION: GENERAL: Lethargic in bed, confused, nonverbal. VITAL SIGNS: Temperature 98 degrees, pulse 73, respirations 18, blood pressure 130/61. CARDIOVASCULAR: No murmur. LUNGS: Distant and clear. ABDOMEN: Positive bowel sounds. Nontender. Nondistended. EXTREMITIES: No cyanosis, clubbing, or edema. NEUROLOGIC: The patient move all extremities, slightly weak. LABORATORY AND DIAGNOSTIC DATA: Labs at this time show white count 11.9, hemoglobin and hematocrit 9.2/27, and platelets 244,000. BUN and creatinine 59/1.8, otherwise normal. Troponin 0.042, BNP is 1099, albumin is 2.9. INR is 0.9. PTT is 25. Urinalysis show 1+ blood, 3+ protein, moderate bacteria. ASSESSMENT: 1. UTI. 2. Sepsis. 3. Abdominal pain. 4. Vomiting. 5. Altered mental status. 6. Weakness. 7. Anaemia. 8. Malnutrition. 9. Diabetes. 10. Hypertension. 11. Acute renal failure. 12. Dementia. 13. CVA. 14. CHF. PLAN: 1. NPO. 2. IV fluids. 3. Blood pressure, blood sugar control. 4. Antiemetic p.r.n. 5. Pain control. 6. PT, dietary evaluation. 7. CBC, BMP in the morning. 8. Nephrology evaluation. Remberto Joe D.O. DR: RAYMOND JOB#: [id number] CC:
--- NOTE | 2019-02-16 16:40 | NUR ---
NURSE NOTES: Called Dr. Cheung regarding pt. abdomen x-ray results. Awaiting for response.
[2019-02-16] MEDS: Docusate 100mg/10ml Liq GT SCH (17:58)
--- NOTE | 2019-02-16 18:55 | NUR ---
NURSE NOTES: Pt. given 6 units of Levemir only due to NPO.
[2019-02-16] MEDS ORDERED: Levemir Flexpen SUBQ SCH (19:25)
--- NOTE | 2019-02-16 19:28 | NUR ---
NURSE NOTES: notified Dr. Cheung regarding KUB result before started feeding. Dr. Cheung states it is okay to start the feeding. will carry on.
--- NOTE | 2019-02-16 19:32 | NUR ---
HAND-OFF: Report given to Shikha GANNON. Pt. remain stable. Endorsed to f/u with Dr. Cheung regarding GTF.
--- NOTE | 2019-02-16 19:33 | NUR ---
NURSE NOTES: received pt from the Blas RN., pt is resting on the bed. reported SR with 1st AVB from the previous shift. left thumb IV site intact, clean,. and patent. no SOB noted, pt is on RA and O2sat is 95%. condom cath is on. Gtube site is intact, patent, and clean. bed at the lowest position,alarmed, and locked. will continue with plan of care.
[2019-02-16 20:00] VITALS: BP 114/64
[2019-02-16] MEDS: HydrALAZINE 25mg tab GT SCH (21:22)
[2019-02-16] MEDS: Miralax 17gm pkt ORAL SCH (21:22)
[2019-02-17] VITALS: BP 134/65
[2019-02-17] MEDS: Cefepime HCl 2 GM in D5W 55 ML IVPB SCH (03:49)
[2019-02-17] MEDS: D5 1/2NS 1,000 ML IV SCH ×2 (03:50→12:43)
[2019-02-17 04:00] VITALS: BP 129/74
--- NOTE | 2019-02-17 04:00 | NUR ---
NURSE NOTES: gave bath and oral care,no sob noted. call light within reach.
[2019-02-17 04:58] LABS: EOSINOPHILS % (AUTO) 1.1 % (0.0-3.0); HEMATOCRIT 31.6 % (42.0-52.0); HEMOGLOBIN 10.3 G/DL (14.2-18.0); LYMPHOCYTES % (AUTO) 15.7 % (20.0-45.0); MEAN CORPUSCULAR VOLUME 84 FL (80-99); MONOCYTES % (AUTO) 7.7 % (1.0-10.0); NEUTROPHILS % (AUTO) 74.4 % (45.0-75.0); PLATELET COUNT 277 K/UL (150-450); RED BLOOD COUNT 3.77 M/UL (4.70-6.10); RED CELL DISTRIBUTION WIDTH 14.5 % (11.6-14.8); WHITE BLOOD COUNT 9.2 K/UL (4.8-10.8)
[2019-02-17 05:35] LABS: ALANINE AMINOTRANSFERASE 20 U/L (12-78); ALBUMIN 2.6 G/DL (3.4-5.0); ALBUMIN/GLOBULIN RATIO 0.6 (1.0-2.7); ALKALINE PHOSPHATASE 101 U/L (46-116); ANION GAP 9 mmol/L (5-15); ASPARTATE AMINO TRANSFERASE 16 U/L (15-37); BILIRUBIN,TOTAL 0.3 MG/DL (0.2-1.0); BLOOD UREA NITROGEN 50 mg/dL (7-18); CALCIUM 9.4 MG/DL (8.5-10.1); CARBON DIOXIDE 28 MMOL/L (21-32); CHLORIDE 106 MMOL/L (98-107); CREATININE 1.8 MG/DL (0.55-1.30); FERRITIN 87 NG/ML (8-388); PHOSPHORUS 2.4 MG/DL (2.5-4.9); POTASSIUM 4.3 MMOL/L (3.5-5.1); SODIUM 142 MMOL/L (136-145)
[2019-02-17] MEDS: NovoLOG Insulin Flexpen SUBQ SCH ×4 (05:54→20:40)
[2019-02-17] MEDS: Docusate 100mg/10ml Liq GT SCH ×3 (05:55→17:06)
[2019-02-17] MEDS: HydrALAZINE 25mg tab GT SCH ×3 (05:55→22:23)
[2019-02-17 06:19] LABS: % IRON SATURATION 11 % (15-50); IRON 23 ug/dL (50-175); TOTAL IRON BINDING CAPACITY 216 ug/dL (250-450)
--- NOTE | 2019-02-17 06:25 | NUR ---
HAND-OFF: Report given to Suraj GANNON. pt is stable condition
--- NOTE | 2019-02-17 06:28 | NUR ---
NURSE NOTES: Patient transferred from [facility].Report given by June Haji RN, patient in stable condition,AOx1, not able to make needs known, on room air, peripheral IV site on left hand G22 , asymptomatic, patent, intact, Gtube patent , condom cath on, urine draining to gravity, bed low and locked, side rails upx3, call light within reach , will continue yo monitor and reassess.
--- NOTE | 2019-02-17 07:30 | NUR ---
NURSE NOTES: Received report from TERESSA Singleton. The patient is resting on the bed without acute distress or shortness of breath. The patient's bed in the lowest position, call light in reach, and fall and aspiration precaution reinforced. Strict aspiration precaution reinforced since the patient is on G tube feeding. Glucerna 1.5 20mL/hr running and will increase per order and as tolerated. IV site intact and patent. Will continue plan of care.
--- NOTE | 2019-02-17 07:40 | General Progress Note ---
Assessment/Plan Problem List: (1) Anemia ICD Codes: D64.9 - Anemia, unspecified SNOMED: 254327441 (2) Diverticulosis ICD Codes: K57.90 - Diverticulosis of intestine, part unspecified, without perforation or abscess without bleeding SNOMED: 903959578 (3) Pancreatic cyst ICD Codes: K86.2 - Cyst of pancreas SNOMED: 84319106 (4) HTN (hypertension) ICD Codes: I10 - Essential (primary) hypertension SNOMED: 77200908 (5) CHF (congestive heart failure) ICD Codes: I50.9 - Heart failure, unspecified SNOMED: 71331542 (6) Diabetes ICD Codes: E11.9 - Type 2 diabetes mellitus without complications SNOMED: 67234736 (7) Dementia ICD Codes: F03.90 - Unspecified dementia without behavioral disturbance SNOMED: 79681586 (8) Feeding by G-tube ICD Codes: Z93.1 - Gastrostomy status SNOMED: 352841537, 238552393 Assessment/Plan: s/p GT placement at the bedside yesterday anemia work up>>>> iron def bowel regimen swallow eval>>> failed GTF hold work up for panc cyst given poor protoplasm Subjective ROS Limited/Unobtainable: No Allergies: Coded Allergies: NO KNOWN DRUG ALLERGIES (Unverified Allergy, Unknown, 05/29/14) Objective Last 24 Hour Vital Signs Date Time Temp Pulse Resp B/P (MAP) Pulse Ox O2 Delivery O2 Flow Rate FiO2 02/17/19 05:56 129/74 02/17/19 05:55 129/74 02/17/19 04:00 97.6 77 18 129/74 (92) 99 02/17/19 04:00 77 02/17/19 00:00 97.7 73 17 134/65 (88) 95 02/16/19 23:26 80 02/16/19 22:00 114/64 02/16/19 21:22 114/64 02/16/19 21:00 Room Air 02/16/19 20:00 97.7 73 19 114/64 (81) 98 02/16/19 19:34 75 02/16/19 16:00 96.6 77 21 140/58 (85) 93 02/16/19 15:48 82 02/16/19 12:00 98.0 74 20 130/54 (79) 95 02/16/19 11:33 73 02/16/19 10:10 78 152/32 02/16/19 10:09 152/82 02/16/19 09:00 Room Air 02/16/19 08:00 97.6 78 20 152/82 (105) 94 02/16/19 08:00 78 Intake and Output 02/16/19 02/17/19 18:59 06:59 Intake Total 815 ml 1362.5 ml Output Total 850 ml Balance -35 ml 1362.5 ml Intake Free Water 50 ml 30 ml IV Total 765 ml 1112.5 ml Tube Feeding 220 ml Output Urine Total 850 ml # Bowel Movements 1 Laboratory Tests 02/17/19 03:45: White Blood Count 9.2, Red Blood Count 3.77L, Hemoglobin 10.3L, Hematocrit 31.6L , Mean Corpuscular Volume 84, Mean Corpuscular Hemoglobin 27.3, Mean Corpuscular Hemoglobin Concent 32.6, Red Cell Distribution Width 14.5, Platelet Count 277, Mean Platelet Volume 6.9, Neutrophils (%) (Auto) 74.4, Lymphocytes (% ) (Auto) 15.7L, Monocytes (%) (Auto) 7.7, Eosinophils (%) (Auto) 1.1, Basophils (%) (Auto) 1.0, Sodium Level 142, Potassium Level 4.3, Chloride Level 106, Carbon Dioxide Level 28, Anion Gap 9, Blood Urea Nitrogen 50H, Creatinine 1.8H, Estimat Glomerular Filtration Rate , Glucose Level 180H, Uric Acid 8.1H, Calcium Level 9.4, Phosphorus Level 2.4L, Magnesium Level 2.7H, Iron Level 23L, Total Iron Binding Capacity 216L, Percent Iron Saturation 11L, Unsaturated Iron Binding 193, Ferritin 87, Total Bilirubin 0.3, Aspartate Amino Transf (AST/SGOT ) 16, Alanine Aminotransferase (ALT/SGPT) 20, Alkaline Phosphatase 101, Ammonia 30, Total Protein 7.1, Albumin 2.6L, Globulin 4.5, Albumin/Globulin Ratio 0.6L, Vitamin B12 Level 745, Folate 104.1H Height (Feet): 5 Height (Inches): 8.00 Weight (Pounds): 178 General Appearance: no apparent distress EENT: normal ENT inspection Neck: supple Cardiovascular: normal rate Respiratory/Chest: decreased breath sounds Abdomen: normal bowel sounds, non tender, soft Extremities: non-tender Faustino Cheung MD Feb 17, 2019 07:40
--- NOTE | 2019-02-17 07:44 | NUR ---
HAND-OFF: Report given to TERESSA Ye, patient in stable condition, plan of care endorsed.
[2019-02-17 08:00] VITALS: BP 133/75
[2019-02-17] MEDS: Aspirin Baby 81mg GT SCH (09:30)
[2019-02-17] MEDS: Gabapentin 300 MG/6 ML Soln GT SCH ×3 (09:30→17:07)
[2019-02-17] MEDS: Lactulose 20gm/30ml UDC ORAL SCH ×4 (09:31→17:07)
[2019-02-17] MEDS: Heparin 5000 units/ml inj SUBQ SCH ×2 (09:32→17:08)
[2019-02-17] MEDS: Levemir Flexpen SUBQ SCH ×2 (09:33→17:10)
[2019-02-17] MEDS ORDERED: Iron Sucrose 100 MG in NS 55 ML IV SCH (10:00)
--- NOTE | 2019-02-17 10:30 | NUR ---
NURSE NOTES: Notified Dr. Brandt and Dr. Mace regarding positive blood culture with gram positive cocci in [address] Mace ordered to repeat blood culture now before starting Vancomycin. Will carry out the order. The patient is stable without acute distress or shortness of breath. Will continue plan of care.
--- NOTE | 2019-02-17 11:25 | NUR ---
PT NOTE Received MD order for PT evaluation. Spoke with nursing staff at SNF, patient at baseline is bedbound, dependent with all ADLs and mobility. Skilled inpatient PT intervention not warranted as patient is dependent with all mobility at baseline. Patient discharged from PT, Cassi GANNON notified.
[2019-02-17 12:00] VITALS: BP 128/80
--- NOTE | 2019-02-17 12:25 | Nephrology Progress Note ---
Assessment/Plan Problem List: (1) Renal failure (ARF), acute on chronic (2) UTI (urinary tract infection) (3) Anemia (4) Fecal impaction Assessment Renal failure- Acute on Chronic Fever Sepsis Fecal impaction UTI (urinary tract infection) Plan Hydrate BP and BS check monitor renal parameters Laxatives antibiotics Subjective ROS Limited/Unobtainable: No Constitutional: Reports: malaise Objective Objective Last 24 Hour Vital Signs Date Time Temp Pulse Resp B/P (MAP) Pulse Ox O2 Delivery O2 Flow Rate FiO2 02/17/19 09:30 82 133/75 02/17/19 08:00 97.7 82 18 133/75 (94) 100 02/17/19 05:56 129/74 02/17/19 05:55 129/74 02/17/19 04:00 97.6 77 18 129/74 (92) 99 02/17/19 04:00 77 02/17/19 00:00 97.7 73 17 134/65 (88) 95 02/16/19 23:26 80 02/16/19 22:00 114/64 02/16/19 21:22 114/64 02/16/19 21:00 Room Air 02/16/19 20:00 97.7 73 19 114/64 (81) 98 02/16/19 19:34 75 02/16/19 16:00 96.6 77 21 140/58 (85) 93 02/16/19 15:48 82 Intake and Output 02/16/19 02/17/19 19:00 07:00 Intake Total 830 ml 1412.5 ml Output Total 850 ml 450 ml Balance -20 ml 962.5 ml Intake Free Water 50 ml 60 ml IV Total 780 ml 1112.5 ml Tube Feeding 240 ml Output Urine Total 850 ml 450 ml # Bowel Movements 1 Laboratory Tests 02/17/19 03:45: White Blood Count 9.2, Red Blood Count 3.77L, Hemoglobin 10.3L, Hematocrit 31.6L , Mean Corpuscular Volume 84, Mean Corpuscular Hemoglobin 27.3, Mean Corpuscular Hemoglobin Concent 32.6, Red Cell Distribution Width 14.5, Platelet Count 277, Mean Platelet Volume 6.9, Neutrophils (%) (Auto) 74.4, Lymphocytes (% ) (Auto) 15.7L, Monocytes (%) (Auto) 7.7, Eosinophils (%) (Auto) 1.1, Basophils (%) (Auto) 1.0, Sodium Level 142, Potassium Level 4.3, Chloride Level 106, Carbon Dioxide Level 28, Anion Gap 9, Blood Urea Nitrogen 50H, Creatinine 1.8H, Estimat Glomerular Filtration Rate , Glucose Level 180H, Uric Acid 8.1H, Calcium Level 9.4, Phosphorus Level 2.4L, Magnesium Level 2.7H, Iron Level 23L, Total Iron Binding Capacity 216L, Percent Iron Saturation 11L, Unsaturated Iron Binding 193, Ferritin 87, Total Bilirubin 0.3, Aspartate Amino Transf (AST/SGOT ) 16, Alanine Aminotransferase (ALT/SGPT) 20, Alkaline Phosphatase 101, Ammonia 30, Total Protein 7.1, Albumin 2.6L, Globulin 4.5, Albumin/Globulin Ratio 0.6L, Vitamin B12 Level 745, Folate 104.1H Height (Feet): 5 Height (Inches): 8.00 Weight (Pounds): 178 General Appearance: no apparent distress Respiratory/Chest: decreased breath sounds Abdomen: distended Objective no change Hansel Kirkpatrick MD Feb 17, 2019 12:25
[2019-02-17] MEDS ORDERED: Phospha 250 Neutral tab GT SCH (12:30)
[2019-02-17] MEDS: Metoclopramide 10mg/2ml Inj IVP SCH ×2 (12:43→18:04)
[2019-02-17] MEDS ORDERED: Fleet's Mineral Oil Enema RECTAL SCH (13:00)
--- NOTE | 2019-02-17 13:00 | NUR ---
NURSE NOTES: Dr. Cheung ordered manual fecal disimpaction and mineral oil fleet enema. Carried out the order. Manual fecal disimpaction done and moderate amount of formed stool brown color came out. The patient's abdomen is still bloated. Will continue plan of care.
--- NOTE | 2019-02-17 13:00 | NUR ---
NURSE NOTES: OB stool collected and will be sent down to the lab. The patient is stable without acute distress or shortness of breath. Will continue plan of care.
--- NOTE | 2019-02-17 14:04 | General Progress Note ---
Assessment/Plan Problem List: (1) Fecal impaction ICD Codes: K56.41 - Fecal impaction SNOMED: 92433249 (2) Anemia ICD Codes: D64.9 - Anemia, unspecified SNOMED: 378766877 (3) Renal failure (ARF), acute on chronic ICD Codes: N17.9 - Acute kidney failure, unspecified; N18.9 - Chronic kidney disease, unspecified SNOMED: 318911425 (4) Malfunction of gastrostomy tube ICD Codes: K94.23 - Gastrostomy malfunction SNOMED: 777060318 (5) UTI (urinary tract infection) ICD Codes: N39.0 - Urinary tract infection, site not specified SNOMED: 86587129 Qualifiers: Qualified Codes: N30.00 - Acute cystitis without hematuria (6) Dementia ICD Codes: F03.90 - Unspecified dementia without behavioral disturbance SNOMED: 00032662 (7) History of CVA (cerebrovascular accident) ICD Codes: Z86.73 - Personal history of transient ischemic attack (TIA), and cerebral infarction without residual deficits SNOMED: 658212571 (8) Diabetes ICD Codes: E11.9 - Type 2 diabetes mellitus without complications SNOMED: 43021125 (9) HTN (hypertension) ICD Codes: I10 - Essential (primary) hypertension SNOMED: 27507535 (10) CHF (congestive heart failure) ICD Codes: I50.9 - Heart failure, unspecified SNOMED: 56910027 (11) Sepsis ICD Codes: A41.9 - Sepsis SNOMED: 08693587 Qualifiers: Qualified Codes: A41.9 - Sepsis, unspecified organism Status: stable, progressing Assessment/Plan: pt diet abx cbc bmp am Subjective Constitutional: Reports: weakness Allergies: Coded Allergies: NO KNOWN DRUG ALLERGIES (Unverified Allergy, Unknown, 05/29/14) All Systems: reviewed and negative except above Subjective sleepy calm Objective Last 24 Hour Vital Signs Date Time Temp Pulse Resp B/P (MAP) Pulse Ox O2 Delivery O2 Flow Rate FiO2 02/17/19 09:30 82 133/75 02/17/19 08:00 97.7 82 18 133/75 (94) 100 02/17/19 05:56 129/74 02/17/19 05:55 129/74 02/17/19 04:00 97.6 77 18 129/74 (92) 99 10/29/19 04:00 77 02/17/19 00:00 97.7 73 17 134/65 (88) 95 02/16/19 23:26 80 02/16/19 22:00 114/64 02/16/19 21:22 114/64 02/16/19 21:00 Room Air 02/16/19 20:00 97.7 73 19 114/64 (81) 98 02/16/19 19:34 75 02/16/19 16:00 96.6 77 21 140/58 (85) 93 02/16/19 15:48 82 Intake and Output 02/16/19 02/17/19 19:00 07:00 Intake Total 830 ml 1412.5 ml Output Total 850 ml 450 ml Balance -20 ml 962.5 ml Intake Free Water 50 ml 60 ml IV Total 780 ml 1112.5 ml Tube Feeding 240 ml Output Urine Total 850 ml 450 ml # Bowel Movements 1 Laboratory Tests 02/17/19 03:45: White Blood Count 9.2, Red Blood Count 3.77L, Hemoglobin 10.3L, Hematocrit 31.6L , Mean Corpuscular Volume 84, Mean Corpuscular Hemoglobin 27.3, Mean Corpuscular Hemoglobin Concent 32.6, Red Cell Distribution Width 14.5, Platelet Count 277, Mean Platelet Volume 6.9, Neutrophils (%) (Auto) 74.4, Lymphocytes (% ) (Auto) 15.7L, Monocytes (%) (Auto) 7.7, Eosinophils (%) (Auto) 1.1, Basophils (%) (Auto) 1.0, Sodium Level 142, Potassium Level 4.3, Chloride Level 106, Carbon Dioxide Level 28, Anion Gap 9, Blood Urea Nitrogen 50H, Creatinine 1.8H, Estimat Glomerular Filtration Rate , Glucose Level 180H, Uric Acid 8.1H, Calcium Level 9.4, Phosphorus Level 2.4L, Magnesium Level 2.7H, Iron Level 23L, Total Iron Binding Capacity 216L, Percent Iron Saturation 11L, Unsaturated Iron Binding 193, Ferritin 87, Total Bilirubin 0.3, Aspartate Amino Transf (AST/SGOT ) 16, Alanine Aminotransferase (ALT/SGPT) 20, Alkaline Phosphatase 101, Ammonia 30, Total Protein 7.1, Albumin 2.6L, Globulin 4.5, Albumin/Globulin Ratio 0.6L, Vitamin B12 Level 745, Folate 104.1H Height (Feet): 5 Height (Inches): 8.00 Weight (Pounds): 178 General Appearance: lethargic EENT: normal ENT inspection Neck: normal alignment Cardiovascular: normal peripheral pulses, normal rate, regular rhythm Respiratory/Chest: chest wall non-tender, lungs clear, normal breath sounds Abdomen: normal bowel sounds, non tender, soft Extremities: normal inspection Edema: no edema noted Arm (L), no edema noted Arm (R), no edema noted Leg (L), no edema noted Leg (R), no edema noted Pedal (L), no edema noted Pedal (R), no edema noted Generalized Neurologic: motor weakness Skin: normal pigmentation, warm/dry Remberto Joe DO Feb 17, 2019 14:04
--- NOTE | 2019-02-17 14:32 | Infectious Diseases Prog Note ---
Assessment/Plan Assessment/Plan 83yo gentleman with PMH HTN, CVA, asthma, DM, dementia presents from SNF with abdominal distension, abdominal pain, fever, chills. ID consulted for antimicrobial recommendation. Tmax 100.3, SP Leukocytosis, improving CRP 17.8 Lactate 1.3 Unlikely UTI UA negative Bacteremia ?contaminant ?real infection BCx: GPC both clusters and chains per micro PNA? pt sounds congested but likely all upper secretions flu swab negative 02/15 CXR without acute disease Abdominal pain and Fecal impaction CT A/P: Massive fecal retention impaction. Gallstones. Atherosclerotic vascular disease. Spondylosis. Gastrostomy. Bilateral inguinal hernias containing fat. Degenerative changes of the spine. HTN CVA Asthma DM Dementia NARCISO/CKD Plan: repeat blood cultures then resume vancomycin #2 continue Cefepime #3 for now 02/17 DC flagyl #2 02/15 SP Vancomycin #1 management of fecal impaction per primary aspiration precaution, elevate HOB, DVT PPX further workup will depend on speciation of GPC in blood and repeat culture results Thank you for this consult. [facility] will continue to follow the patient with you. Subjective Allergies: Coded Allergies: NO KNOWN DRUG ALLERGIES (Unverified Allergy, Unknown, 05/29/14) Subjective Afebrile. Lots of oral secretions. Denies abdominal pain or SOB. But states he feels "mal" Objective Vital Signs Last 24 Hour Vital Signs Date Time Temp Pulse Resp B/P (MAP) Pulse Ox O2 Delivery O2 Flow Rate FiO2 02/17/19 09:30 82 133/75 02/17/19 08:00 97.7 82 18 133/75 (94) 100 02/17/19 05:56 129/74 02/17/19 05:55 129/74 02/17/19 04:00 97.6 77 18 129/74 (92) 99 02/17/19 04:00 77 02/17/19 00:00 97.7 73 17 134/65 (88) 95 02/16/19 23:26 80 02/16/19 22:00 114/64 02/16/19 21:22 114/64 02/16/19 21:00 Room Air 02/16/19 20:00 97.7 73 19 114/64 (81) 98 02/16/19 19:34 75 02/16/19 16:00 96.6 77 21 140/58 (85) 93 02/16/19 15:48 82 Height (Feet): 5 Height (Inches): 8.00 Weight (Pounds): 178 Objective Gen: NAD HEENT: anicteric sclera CV: RRR Resp: rhonchi Abd: distended. no TTP. hypoactive BS+ Neuro: awake Microbiology Date/Time Source Procedure Growth Status 02/15/19 15:05 Blood Blood Culture - Preliminary Resulted 02/15/19 14:50 Blood Blood Culture - Preliminary Resulted 02/15/19 15:30 Nasal Nares - Final Complete 02/15/19 15:30 Nasal Nares - Final Complete 02/15/19 14:50 Urine,Clean Catch Urine Culture - Preliminary NO GROWTH AFTER 24 HOURS Resulted 02/15/19 15:35 Rectum - Final NO CARBAPENEM-RESISTANT ENTEROBACTERI... Complete 02/15/19 15:35 Rectum VRE Culture - Final NO VANCOMYCIN RESISTANT ENTEROCOCCUS ... Complete Laboratory Tests Test 02/17/19 03:45 White Blood Count 9.2 K/UL (4.8-10.8) Red Blood Count 3.77 M/UL (4.70-6.10) L Hemoglobin 10.3 G/DL (14.2-18.0) L Hematocrit 31.6 % (42.0-52.0) L Mean Corpuscular Volume 84 FL (80-99) Mean Corpuscular Hemoglobin 27.3 PG (27.0-31.0) Mean Corpuscular Hemoglobin Concent 32.6 G/DL (32.0-36.0) Red Cell Distribution Width 14.5 % (11.6-14.8) Platelet Count 277 K/UL (150-450) Mean Platelet Volume 6.9 FL (6.5-10.1) Neutrophils (%) (Auto) 74.4 % (45.0-75.0) Lymphocytes (%) (Auto) 15.7 % (20.0-45.0) L Monocytes (%) (Auto) 7.7 % (1.0-10.0) Eosinophils (%) (Auto) 1.1 % (0.0-3.0) Basophils (%) (Auto) 1.0 % (0.0-2.0) Sodium Level 142 MMOL/L (136-145) Potassium Level 4.3 MMOL/L (3.5-5.1) Chloride Level 106 MMOL/L (98-107) Carbon Dioxide Level 28 MMOL/L (21-32) Anion Gap 9 mmol/L (5-15) Blood Urea Nitrogen 50 mg/dL (7-18) H Creatinine 1.8 MG/DL (0.55-1.30) H Estimat Glomerular Filtration Rate mL/min (>60) Glucose Level 180 MG/DL (74-106) H Uric Acid 8.1 MG/DL (2.6-7.2) H Calcium Level 9.4 MG/DL (8.5-10.1) Phosphorus Level 2.4 MG/DL (2.5-4.9) L Magnesium Level 2.7 MG/DL (1.8-2.4) H Iron Level 23 ug/dL (50-175) L Total Iron Binding Capacity 216 ug/dL (250-450) L Percent Iron Saturation 11 % (15-50) L Unsaturated Iron Binding 193 ug/dL (112-346) Ferritin 87 NG/ML (8-388) Total Bilirubin 0.3 MG/DL (0.2-1.0) Aspartate Amino Transf (AST/SGOT) 16 U/L (15-37) Alanine Aminotransferase (ALT/SGPT) 20 U/L (12-78) Alkaline Phosphatase 101 U/L (46-116) Ammonia 30 umol/L (11-32) Total Protein 7.1 G/DL (6.4-8.2) Albumin 2.6 G/DL (3.4-5.0) L Globulin 4.5 g/dL Albumin/Globulin Ratio 0.6 (1.0-2.7) L Vitamin B12 Level 745 PG/ML (193-986) Folate 104.1 NG/ML (8.6-58.9) H Current Medications Medications (Trade) Dose Ordered Sig/Dimas Route PRN Reason Start Time Stop Time Status Last Admin Dose Admin Acetaminophen (Tylenol) 650 mg Q4H PRN ORAL FHMP 02/16/19 03:00 03/18/19 02:44 Albuterol/ Ipratropium (Albuterol/ Ipratropium) 3 ml Q6H PRN HHN Shortness of Breath 02/16/19 02:45 02/21/19 02:44 Amlodipine Besylate (Norvasc) 5 mg DAILY GT 02/17/19 09:00 03/18/19 08:59 02/17/19 09:30 Aspirin (ASA) 81 mg DAILY GT 02/16/19 09:00 03/18/19 08:59 02/17/19 09:30 Cefepime HCl 2 gm/ Sodium Chloride 110 ml @ 220 mls/hr QHS IVPB 02/17/19 21:00 02/23/19 20:59 Clonidine HCl (Catapres Tab) 0.1 mg Q8HR ORAL 02/16/19 22:00 03/18/19 08:59 Dextrose (Dextrose 50%) 25 ml Q30M PRN IV Hypoglycemia 02/16/19 02:45 03/18/19 02:44 Dextrose (Dextrose 50%) 50 ml Q30M PRN IV Hypoglycemia 02/16/19 02:45 03/18/19 02:44 Dextrose/Sodium Chloride 1,000 ml @ 40 mls/hr Q24H IV 02/17/19 12:30 03/18/19 12:29 02/17/19 12:43 Docusate Sodium (Colace) 100 mg TIAC GT 02/16/19 16:30 03/18/19 08:59 02/17/19 12:08 Gabapentin (Neurontin) 300 mg THREE TIMES A DAY GT 02/16/19 09:00 03/18/19 08:59 02/17/19 12:08 Heparin Sodium (Porcine) (Heparin 5000 units/ml) 5,000 units BID SUBQ 02/16/19 09:00 03/18/19 08:59 02/17/19 09:32 Hydralazine HCl (Apresoline) 25 mg EVERY 8 HOURS GT 02/16/19 22:00 03/18/19 05:59 02/17/19 05:55 Insulin Aspart (NovoLOG) BEFORE MEALS AND HS SUBQ 02/16/19 06:30 03/18/19 06:29 02/17/19 12:08 Insulin Detemir (Levemir) 12 units BID SUBQ 02/17/19 09:00 03/19/19 08:59 02/17/19 09:33 Lactulose (Cephulac) 30 gm THREE TIMES A DAY ORAL 02/17/19 13:00 03/18/19 12:59 Metoclopramide HCl (Reglan) 10 mg Q6H IVP 02/17/19 12:30 02/18/19 06:31 02/17/19 12:43 Metronidazole 100 ml @ 100 mls/hr Q8HR IVPB 02/16/19 06:00 02/23/19 05:59 02/17/19 05:51 Morphine Sulfate (Morphine Sulfate) 2 mg Q4HR PRN IVP For Pain 02/15/19 23:00 02/22/19 22:59 Nitroglycerin (Ntg) 0.4 mg Q5M PRN SL Prn Chest Pain 02/16/19 02:45 03/18/19 02:44 Ondansetron HCl (Zofran) 4 mg Q4HR PRN IVP Nausea & Vomiting 02/15/19 23:00 03/17/19 22:59 Polyethylene Glycol (Miralax) 17 gm BEDTIME ORAL 02/16/19 21:00 03/18/19 20:59 02/16/19 21:22 Joseluis Mace MD Feb 17, 2019 14:32
[2019-02-17] MEDS ORDERED: D5 1/2NS 1000ml IV ONE (15:23)
[2019-02-17 16:00] VITALS: BP 132/72
[2019-02-17] MEDS ORDERED: Vancomycin 1.25gm/NS Premix IVPB ONE (16:00)
--- NOTE | 2019-02-17 17:00 | NUR ---
NURSE NOTES: The patient is stable without acute distress or shortness of breath. The patient's tube feeding rate increased to 30mL/hr and tolerating without residual. Will continue plan of care.
--- NOTE | 2019-02-17 19:20 | NUR ---
HAND-OFF: Report given to TERESSA Schmitt. The patient is resting on the bed without acute distress or shortness of breath. The patient's bed in the lowest position, call light in reach, and fall and aspiration precaution reinforced. IV site intact and patent. G tube intact and tube feeding rate 30mL/hr without residual. Endorsed plan of care.
--- NOTE | 2019-02-17 19:21 | NUR ---
NURSE NOTES: Received report from Misael GANNON. Pt was in the bed. Pt was having mild SOB from Mild secretion accumulation. RT cleaned the airway and pt was not in distress any more. Sat went up to 97 percent with 2 L NC. Rails are up x3. Call light is within reach. Bed alarm is on. Pt's abdomen is very distended. ON GT feeding at 30 ml/hr goal is 50 ml/hr. No residual at this moment. Condom cath is patent and draining. Per AM RN PT got manual fecal extraction per order. MD Joe notified about above clinical findings. Will wait for further orders.
[2019-02-17 20:00] VITALS: BP 137/87
[2019-02-17] MEDS ORDERED: AMLODIPINE BESYL5 MG GT (20:09)
[2019-02-17] MEDS ORDERED: FISH OIL 500 M1 EAC1 GT (20:09)
[2019-02-17] MEDS ORDERED: GABAPENTIN300 MG GT (20:09)
[2019-02-17] MEDS ORDERED: ACETAMINOPHEN325 M1 ORAL (20:09)
[2019-02-17] MEDS ORDERED: DOCUSATE SODIU100 MG GT (20:09)
[2019-02-17] MEDS ORDERED: CRANBERRY425 MG GT (20:09)
[2019-02-17] MEDS ORDERED: SKIN PROTECTAN113 GM TP (20:09)
[2019-02-17] MEDS ORDERED: OSCAL D500 MG GT (20:09)
[2019-02-17] MEDS ORDERED: ALBUTEROL2.5 MG/3 M INH (20:09)
[2019-02-17] MEDS ORDERED: KENALOG 0.025%15 GM APPLIC (20:09)
[2019-02-17] MEDS ORDERED: NOVOLIN R100 UNIT/1 SUBQ (20:09)
[2019-02-17] MEDS ORDERED: NITRO0.4 SL (20:09)
[2019-02-17] MEDS: Miralax 17gm pkt ORAL SCH (20:22)
[2019-02-17] MEDS ORDERED: Cefepime HCl 2 GM in NS 110 ML IVPB SCH (21:00)
--- NOTE | 2019-02-17 23:39 | NUR ---
NURSE NOTES: Per MD Joe order notified MD Guzman about Respiratory distress and abdominal distention. Will wait for further orders.
[2019-02-18] VITALS: BP 134/89
[2019-02-18] MEDS: Metoclopramide 10mg/2ml Inj IVP SCH ×2 (01:06→06:44)
[2019-02-18 04:00] VITALS: BP 157/83
[2019-02-18] MEDS: Docusate 100mg/10ml Liq GT SCH ×3 (06:44→17:08)
[2019-02-18] MEDS: NovoLOG Insulin Flexpen SUBQ SCH ×4 (06:44→21:53)
[2019-02-18] MEDS: HydrALAZINE 25mg tab GT SCH ×3 (06:45→21:52)
[2019-02-18 07:23] LABS: BASOPHILS % (AUTO) 0.7 % (0.0-2.0); HEMOGLOBIN 10.2 G/DL (14.2-18.0); LYMPHOCYTES % (AUTO) 9.3 % (20.0-45.0); MEAN CORPUSCULAR VOLUME 84 FL (80-99); MONOCYTES % (AUTO) 8.9 % (1.0-10.0); NEUTROPHILS % (AUTO) 81.1 % (45.0-75.0); PLATELET COUNT 310 K/UL (150-450); RED BLOOD COUNT 3.79 M/UL (4.70-6.10); RED CELL DISTRIBUTION WIDTH 14.4 % (11.6-14.8); WHITE BLOOD COUNT 11.7 K/UL (4.8-10.8)
--- NOTE | 2019-02-18 07:30 | NUR ---
NURSE NOTES: Received report from TERESSA Schmitt. The patient is resting on the bed without acute distress or shortness of breath. The patient's bed in the lowest position, call light in reach, and fall and strict aspiration precaution reinforced as the patient is on G-tube feeding. Due to desaturation last night, the night nurse received new order of 2L NC, and the patient is on 2L NC as ordered continuous. The patient's tube feeding rate increased to 35mL/hr and tolerating well. The patient had small amount of bowel movement yesterday but the patient's abdomen still bloated. Will continue plan of care.
[2019-02-18 07:50] LABS: ALANINE AMINOTRANSFERASE 17 U/L (12-78); ALBUMIN 2.7 G/DL (3.4-5.0); ALBUMIN/GLOBULIN RATIO 0.6 (1.0-2.7); ALKALINE PHOSPHATASE 108 U/L (46-116); ANION GAP 9 mmol/L (5-15); ASPARTATE AMINO TRANSFERASE 15 U/L (15-37); BILIRUBIN,TOTAL 0.4 MG/DL (0.2-1.0); BLOOD UREA NITROGEN 49 mg/dL (7-18); CALCIUM 9.4 MG/DL (8.5-10.1); CARBON DIOXIDE 27 MMOL/L (21-32); CHLORIDE 106 MMOL/L (98-107); PHOSPHORUS 2.3 MG/DL (2.5-4.9); POTASSIUM 3.7 MMOL/L (3.5-5.1); SODIUM 142 MMOL/L (136-145)
--- NOTE | 2019-02-18 07:56 | NUR ---
HAND-OFF: Report given to Elisa Mack RN.
--- NOTE | 2019-02-18 07:58 | General Progress Note ---
Assessment/Plan Problem List: (1) Anemia ICD Codes: D64.9 - Anemia, unspecified SNOMED: 989615810 (2) Diverticulosis ICD Codes: K57.90 - Diverticulosis of intestine, part unspecified, without perforation or abscess without bleeding SNOMED: 890309141 (3) Pancreatic cyst ICD Codes: K86.2 - Cyst of pancreas SNOMED: 79917101 (4) HTN (hypertension) ICD Codes: I10 - Essential (primary) hypertension SNOMED: 44217561 (5) CHF (congestive heart failure) ICD Codes: I50.9 - Heart failure, unspecified SNOMED: 48711143 (6) Diabetes ICD Codes: E11.9 - Type 2 diabetes mellitus without complications SNOMED: 64743468 (7) Dementia ICD Codes: F03.90 - Unspecified dementia without behavioral disturbance SNOMED: 10184466 (8) Feeding by G-tube ICD Codes: Z93.1 - Gastrostomy status SNOMED: 043887924, 649379021 Status: stable, progressing Assessment/Plan: s/p GT placement at the bedside anemia work up>>>> iron def bowel regimen swallow eval>>> failed GTF hold work up for panc cyst given poor protoplasm stool impaction>> s/p manual disimpaction Subjective ROS Limited/Unobtainable: No Allergies: Coded Allergies: NO KNOWN DRUG ALLERGIES (Unverified Allergy, Unknown, 05/29/14) Objective Last 24 Hour Vital Signs Date Time Temp Pulse Resp B/P (MAP) Pulse Ox O2 Delivery O2 Flow Rate FiO2 02/18/19 06:45 157/83 02/18/19 06:45 157/83 02/18/19 04:00 98.2 86 20 157/83 (107) 98 02/18/19 04:00 85 02/18/19 00:00 79 02/18/19 00:00 98.2 82 22 134/89 (104) 97 02/17/19 22:24 137/87 02/17/19 22:23 137/87 02/17/19 21:00 Nasal Cannula 2.0 02/17/19 20:03 Nasal Cannula 4.0 36 02/17/19 20:03 102 26 95 Nasal Cannula 4.0 36 02/17/19 20:00 98.1 90 22 137/87 (104) 96 02/17/19 20:00 88 02/17/19 16:00 98.1 89 18 132/72 (92) 95 02/17/19 16:00 75 02/17/19 14:32 139/83 02/17/19 14:31 139/83 02/17/19 12:00 84 02/17/19 12:00 98.2 91 18 128/80 (96) 100 02/17/19 09:30 82 133/75 02/17/19 09:00 Room Air 02/17/19 08:00 97.7 82 18 133/75 (94) 100 02/17/19 08:00 80 Intake and Output 02/17/19 02/18/19 18:59 06:59 Intake Total 125 ml 445 ml Output Total 450 ml 400 ml Balance -325 ml 45 ml Intake Free Water 30 ml 100 ml IV Total 75 ml Tube Feeding 20 ml 345 ml Output Urine Total 450 ml 400 ml # Voids 1 # Bowel Movements 2 2 Laboratory Tests 02/17/19 21:00: Stool Occult Blood [Pending] 02/18/19 05:52: White Blood Count 11.7H, Red Blood Count 3.79L, Hemoglobin 10.2L, Hematocrit 32.0L, Mean Corpuscular Volume 84, Mean Corpuscular Hemoglobin 26.9L, Mean Corpuscular Hemoglobin Concent 31.8L, Red Cell Distribution Width 14.4, Platelet Count 310, Mean Platelet Volume 6.7, Neutrophils (%) (Auto) 81.1H, Lymphocytes (%) (Auto) 9.3L, Monocytes (%) (Auto) 8.9, Eosinophils (%) (Auto) 0.0, Basophils (%) (Auto) 0.7, Sodium Level 142, Potassium Level 3.7, Chloride Level 106, Carbon Dioxide Level 27, Anion Gap 9, Blood Urea Nitrogen 49H, Creatinine 2.0H, Estimat Glomerular Filtration Rate , Glucose Level 195H, Calcium Level 9.4, Phosphorus Level 2.3L, Magnesium Level 2.8H, Total Bilirubin 0.4, Aspartate Amino Transf (AST/SGOT) 15, Alanine Aminotransferase (ALT/SGPT) 17, Alkaline Phosphatase 108, Total Protein 7.4, Albumin 2.7L, Globulin 4.7, Albumin/Globulin Ratio 0.6L, Random Vancomycin Level 24.8 Height (Feet): 5 Height (Inches): 8.00 Weight (Pounds): 182 General Appearance: no apparent distress EENT: normal ENT inspection Neck: supple Cardiovascular: normal rate Respiratory/Chest: decreased breath sounds Abdomen: normal bowel sounds, non tender, soft Extremities: non-tender Faustino Cheung MD Feb 18, 2019 07:58
[2019-02-18 08:00] VITALS: BP 125/65
--- NOTE | 2019-02-18 09:13 | General Progress Note ---
Assessment/Plan Problem List: (1) Fecal impaction ICD Codes: K56.41 - Fecal impaction SNOMED: 37188342 (2) Anemia ICD Codes: D64.9 - Anemia, unspecified SNOMED: 853255970 (3) Renal failure (ARF), acute on chronic ICD Codes: N17.9 - Acute kidney failure, unspecified; N18.9 - Chronic kidney disease, unspecified SNOMED: 108137721 (4) Malfunction of gastrostomy tube ICD Codes: K94.23 - Gastrostomy malfunction SNOMED: 926904214 (5) UTI (urinary tract infection) ICD Codes: N39.0 - Urinary tract infection, site not specified SNOMED: 44445820 Qualifiers: Qualified Codes: N30.00 - Acute cystitis without hematuria (6) Dementia ICD Codes: F03.90 - Unspecified dementia without behavioral disturbance SNOMED: 65821897 (7) History of CVA (cerebrovascular accident) ICD Codes: Z86.73 - Personal history of transient ischemic attack (TIA), and cerebral infarction without residual deficits SNOMED: 569541175 (8) Diabetes ICD Codes: E11.9 - Type 2 diabetes mellitus without complications SNOMED: 52140075 (9) HTN (hypertension) ICD Codes: I10 - Essential (primary) hypertension SNOMED: 18742191 (10) CHF (congestive heart failure) ICD Codes: I50.9 - Heart failure, unspecified SNOMED: 87729670 (11) Sepsis ICD Codes: A41.9 - Sepsis SNOMED: 41971149 Qualifiers: Qualified Codes: A41.9 - Sepsis, unspecified organism Status: stable, progressing Assessment/Plan: pt diet abx cbc bmp am dc plan Subjective Constitutional: Reports: weakness Allergies: Coded Allergies: NO KNOWN DRUG ALLERGIES (Unverified Allergy, Unknown, 05/29/14) All Systems: reviewed and negative except above Subjective sleepy calm Objective Last 24 Hour Vital Signs Date Time Temp Pulse Resp B/P (MAP) Pulse Ox O2 Delivery O2 Flow Rate FiO2 02/18/19 08:00 97.9 75 18 125/65 (85) 94 02/18/19 06:45 157/83 02/18/19 06:45 157/83 02/18/19 04:00 98.2 86 20 157/83 (107) 98 02/18/19 04:00 85 02/18/19 00:00 79 02/18/19 00:00 98.2 82 22 134/89 (104) 97 02/17/19 22:24 137/87 02/17/19 22:23 137/87 02/17/19 21:00 Nasal Cannula 2.0 02/17/19 20:03 Nasal Cannula 4.0 36 02/17/19 20:03 102 26 95 Nasal Cannula 4.0 36 02/17/19 20:00 98.1 90 22 137/87 (104) 96 02/17/19 20:00 88 02/17/19 16:00 98.1 89 18 132/72 (92) 95 02/17/19 16:00 75 02/17/19 14:32 139/83 02/17/19 14:31 139/83 02/17/19 12:00 84 02/17/19 12:00 98.2 91 18 128/80 (96) 100 02/17/19 09:30 82 133/75 Intake and Output 02/17/19 02/18/19 18:59 06:59 Intake Total 125 ml 445 ml Output Total 450 ml 400 ml Balance -325 ml 45 ml Intake Free Water 30 ml 100 ml IV Total 75 ml Tube Feeding 20 ml 345 ml Output Urine Total 450 ml 400 ml # Voids 1 # Bowel Movements 2 2 Laboratory Tests 02/17/19 21:00: Stool Occult Blood [Pending] 02/18/19 05:52: White Blood Count 11.7H, Red Blood Count 3.79L, Hemoglobin 10.2L, Hematocrit 32.0L, Mean Corpuscular Volume 84, Mean Corpuscular Hemoglobin 26.9L, Mean Corpuscular Hemoglobin Concent 31.8L, Red Cell Distribution Width 14.4, Platelet Count 310, Mean Platelet Volume 6.7, Neutrophils (%) (Auto) 81.1H, Lymphocytes (%) (Auto) 9.3L, Monocytes (%) (Auto) 8.9, Eosinophils (%) (Auto) 0.0, Basophils (%) (Auto) 0.7, Sodium Level 142, Potassium Level 3.7, Chloride Level 106, Carbon Dioxide Level 27, Anion Gap 9, Blood Urea Nitrogen 49H, Creatinine 2.0H, Estimat Glomerular Filtration Rate , Glucose Level 195H, Calcium Level 9.4, Phosphorus Level 2.3L, Magnesium Level 2.8H, Total Bilirubin 0.4, Aspartate Amino Transf (AST/SGOT) 15, Alanine Aminotransferase (ALT/SGPT) 17, Alkaline Phosphatase 108, Total Protein 7.4, Albumin 2.7L, Globulin 4.7, Albumin/Globulin Ratio 0.6L, Random Vancomycin Level 24.8 Height (Feet): 5 Height (Inches): 8.00 Weight (Pounds): 182 General Appearance: lethargic EENT: normal ENT inspection Neck: normal alignment Cardiovascular: normal peripheral pulses, normal rate, regular rhythm Respiratory/Chest: chest wall non-tender, lungs clear, normal breath sounds Abdomen: normal bowel sounds, non tender, soft Extremities: normal inspection Edema: no edema noted Arm (L), no edema noted Arm (R), no edema noted Leg (L), no edema noted Leg (R), no edema noted Pedal (L), no edema noted Pedal (R), no edema noted Generalized Neurologic: motor weakness Skin: normal pigmentation, warm/dry Remberto Joe DO Feb 18, 2019 09:13
[2019-02-18] MEDS: Gabapentin 300 MG/6 ML Soln GT SCH ×3 (09:28→17:08)
[2019-02-18] MEDS: Aspirin Baby 81mg GT SCH (09:28)
[2019-02-18] MEDS: Lactulose 20gm/30ml UDC ORAL SCH ×3 (09:29→17:09)
[2019-02-18] MEDS: Heparin 5000 units/ml inj SUBQ SCH ×2 (09:30→17:10)
[2019-02-18] MEDS: Levemir Flexpen SUBQ SCH ×2 (09:31→17:11)
--- NOTE | 2019-02-18 11:06 | Pulmonology Progress Note ---
Assessment/Plan Problems: (1) Acute respiratory failure (2) Fecal impaction (3) Diabetes (4) History of CVA (cerebrovascular accident) (5) Feeding by G-tube (6) Dementia Assessment/Plan respiratory treatment check CXR titrate fio2 to sat of 92% dvt prophylaxis aspiration precaution. Subjective ROS Limited/Unobtainable: Yes Allergies: Coded Allergies: NO KNOWN DRUG ALLERGIES (Unverified Allergy, Unknown, 05/29/14) Objective Last 24 Hour Vital Signs Date Time Temp Pulse Resp B/P (MAP) Pulse Ox O2 Delivery O2 Flow Rate FiO2 02/18/19 09:29 75 125/65 02/18/19 09:24 Nasal Cannula 4.0 36 02/18/19 08:00 97.9 75 18 125/65 (85) 94 02/18/19 06:45 157/83 02/18/19 06:45 157/83 02/18/19 04:00 98.2 86 20 157/83 (107) 98 02/18/19 04:00 85 02/18/19 00:00 79 02/18/19 00:00 98.2 82 22 134/89 (104) 97 02/17/19 22:24 137/87 02/17/19 22:23 137/87 02/17/19 21:00 Nasal Cannula 2.0 02/17/19 20:03 Nasal Cannula 4.0 36 02/17/19 20:03 102 26 95 Nasal Cannula 4.0 36 02/17/19 20:00 98.1 90 22 137/87 (104) 96 02/17/19 20:00 88 02/17/19 16:00 98.1 89 18 132/72 (92) 95 02/17/19 16:00 75 02/17/19 14:32 139/83 02/17/19 14:31 139/83 02/17/19 12:00 84 02/17/19 12:00 98.2 91 18 128/80 (96) 100 Intake and Output 02/17/19 02/18/19 18:59 06:59 Intake Total 125 ml 445 ml Output Total 450 ml 400 ml Balance -325 ml 45 ml Intake Free Water 30 ml 100 ml IV Total 75 ml Tube Feeding 20 ml 345 ml Output Urine Total 450 ml 400 ml # Voids 1 # Bowel Movements 2 2 General Appearance: WD/WN HEENT: normocephalic, atraumatic Respiratory/Chest: chest wall non-tender, lungs clear Cardiovascular: normal peripheral pulses, normal rate Abdomen: normal bowel sounds, soft, non tender Genitourinary: normal external genitalia Extremities: no clubbing Neurologic/Psychiatric: sheeter helper II-XII grossly normal Microbiology Date/Time Source Procedure Growth Status 02/15/19 15:05 Blood Blood Culture - Preliminary Staphylococcus Sp Coag Neg Resulted 02/15/19 14:50 Blood Blood Culture - Preliminary Staphylococcus Sp Coag Neg Resulted 02/16/19 17:00 Sputum Expectorated Gram Stain - Final Resulted 02/16/19 17:00 Sputum Expectorated Sputum Culture Pending Resulted 02/15/19 15:30 Nasal Nares - Final Complete 02/15/19 15:30 Nasal Nares - Final Complete 02/15/19 14:50 Urine,Clean Catch Urine Culture - Final NO GROWTH AFTER 48 HOURS Complete 02/15/19 15:35 Rectum - Final NO CARBAPENEM-RESISTANT ENTEROBACTERI... Complete 02/15/19 15:35 Rectum VRE Culture - Final NO VANCOMYCIN RESISTANT ENTEROCOCCUS ... Complete Laboratory Tests 02/17/19 21:00: Stool Occult Blood [Pending] 02/18/19 05:52: White Blood Count 11.7H, Red Blood Count 3.79L, Hemoglobin 10.2L, Hematocrit 32.0L, Mean Corpuscular Volume 84, Mean Corpuscular Hemoglobin 26.9L, Mean Corpuscular Hemoglobin Concent 31.8L, Red Cell Distribution Width 14.4, Platelet Count 310, Mean Platelet Volume 6.7, Neutrophils (%) (Auto) 81.1H, Lymphocytes (%) (Auto) 9.3L, Monocytes (%) (Auto) 8.9, Eosinophils (%) (Auto) 0.0, Basophils (%) (Auto) 0.7, Sodium Level 142, Potassium Level 3.7, Chloride Level 106, Carbon Dioxide Level 27, Anion Gap 9, Blood Urea Nitrogen 49H, Creatinine 2.0H, Estimat Glomerular Filtration Rate , Glucose Level 195H, Calcium Level 9.4, Phosphorus Level 2.3L, Magnesium Level 2.8H, Total Bilirubin 0.4, Aspartate Amino Transf (AST/SGOT) 15, Alanine Aminotransferase (ALT/SGPT) 17, Alkaline Phosphatase 108, Total Protein 7.4, Albumin 2.7L, Globulin 4.7, Albumin/Globulin Ratio 0.6L, Random Vancomycin Level 24.8 Current Medications Medications (Trade) Dose Ordered Sig/Dimas Route PRN Reason Start Time Stop Time Status Last Admin Dose Admin Acetaminophen (Tylenol) 650 mg Q4H PRN ORAL FHMP 02/16/19 03:00 03/18/19 02:44 Albuterol/ Ipratropium (Albuterol/ Ipratropium) 3 ml Q6H PRN HHN Shortness of Breath 02/16/19 02:45 02/21/19 02:44 Amlodipine Besylate (Norvasc) 5 mg DAILY GT 02/17/19 09:00 03/18/19 08:59 02/18/19 09:29 Aspirin (ASA) 81 mg DAILY GT 02/16/19 09:00 03/18/19 08:59 02/18/19 09:28 Cefepime HCl 2 gm/ Sodium Chloride 110 ml @ 220 mls/hr QHS IVPB 02/17/19 21:00 02/23/19 20:59 02/17/19 20:29 Clonidine HCl (Catapres Tab) 0.1 mg Q8HR ORAL 02/16/19 22:00 03/18/19 08:59 02/18/19 06:45 Dextrose (Dextrose 50%) 25 ml Q30M PRN IV Hypoglycemia 02/16/19 02:45 03/18/19 02:44 Dextrose (Dextrose 50%) 50 ml Q30M PRN IV Hypoglycemia 02/16/19 02:45 03/18/19 02:44 Dextrose/Sodium Chloride 1,000 ml @ 40 mls/hr Q24H IV 02/17/19 12:30 03/18/19 12:29 02/17/19 12:43 Docusate Sodium (Colace) 100 mg TIAC GT 02/16/19 16:30 03/18/19 08:59 02/18/19 06:44 Gabapentin (Neurontin) 300 mg THREE TIMES A DAY GT 02/16/19 09:00 03/18/19 08:59 02/18/19 09:28 Heparin Sodium (Porcine) (Heparin 5000 units/ml) 5,000 units BID SUBQ 02/16/19 09:00 03/18/19 08:59 02/18/19 09:30 Hydralazine HCl (Apresoline) 25 mg EVERY 8 HOURS GT 02/16/19 22:00 03/18/19 05:59 02/18/19 06:45 Insulin Aspart (NovoLOG) BEFORE MEALS AND HS SUBQ 02/16/19 06:30 03/18/19 06:29 02/18/19 06:44 Insulin Detemir (Levemir) 12 units BID SUBQ 02/17/19 09:00 03/19/19 08:59 02/18/19 09:31 Lactulose (Cephulac) 30 gm THREE TIMES A DAY ORAL 02/17/19 13:00 03/18/19 12:59 02/18/19 09:29 Mineral Oil (Fleet's Mineral Oil Enema) 133 ml ONCE RECTAL 02/18/19 13:00 02/18/19 16:00 Morphine Sulfate (Morphine Sulfate) 2 mg Q4HR PRN IVP For Pain 02/15/19 23:00 02/22/19 22:59 Nitroglycerin (Ntg) 0.4 mg Q5M PRN SL Prn Chest Pain 02/16/19 02:45 03/18/19 02:44 Ondansetron HCl (Zofran) 4 mg Q4HR PRN IVP Nausea & Vomiting 02/15/19 23:00 03/17/19 22:59 Polyethylene Glycol (Miralax) 17 gm BEDTIME ORAL 02/16/19 21:00 03/18/19 20:59 02/17/19 20:22 Potassium Phosphate 20 mm/ Sodium Chloride 281.6667 ml @ 46.944 m... ONCE ONCE IV 02/18/19 11:30 02/18/19 17:29 Vancomycin HCl (Vanco rx to dose) 1 ea DAILY PRN MISC Per rx protocol 02/17/19 14:45 03/19/19 14:44 Wang Guzman MD Feb 18, 2019 11:06
[2019-02-18] MEDS ORDERED: Potassium Phosphate 20 MM in NS 275 ML IV ONE (11:30)
[2019-02-18] MEDS: D5 1/2NS 1,000 ML IV SCH (11:53)
[2019-02-18 12:00] VITALS: BP 113/74
--- NOTE | 2019-02-18 12:13 | Nephrology Progress Note ---
Assessment/Plan Problem List: (1) Acute on chronic renal failure (2) ATN (acute tubular necrosis) (3) UTI (urinary tract infection) (4) Anemia Assessment Renal failure- Acute on Chronic Fever Sepsis Fecal impaction UTI (urinary tract infection) Plan Hydrate BP and BS check monitor renal parameters Laxatives antibiotics med-surg Subjective ROS Limited/Unobtainable: No Constitutional: Reports: malaise Objective Objective Last 24 Hour Vital Signs Date Time Temp Pulse Resp B/P (MAP) Pulse Ox O2 Delivery O2 Flow Rate FiO2 02/18/19 09:29 75 125/65 02/18/19 09:24 Nasal Cannula 4.0 36 02/18/19 08:00 97.9 75 18 125/65 (85) 94 02/18/19 06:45 157/83 02/18/19 06:45 157/83 02/18/19 04:00 98.2 86 20 157/83 (107) 98 02/18/19 04:00 85 02/18/19 00:00 79 02/18/19 00:00 98.2 82 22 134/89 (104) 97 02/17/19 22:24 137/87 02/17/19 22:23 137/87 02/17/19 21:00 Nasal Cannula 2.0 02/17/19 20:03 Nasal Cannula 4.0 36 02/17/19 20:03 102 26 95 Nasal Cannula 4.0 36 02/17/19 20:00 98.1 90 22 137/87 (104) 96 02/17/19 20:00 88 02/17/19 16:00 98.1 89 18 132/72 (92) 95 02/17/19 16:00 75 02/17/19 14:32 139/83 02/17/19 14:31 139/83 Intake and Output 02/17/19 02/18/19 18:59 06:59 Intake Total 125 ml 445 ml Output Total 450 ml 400 ml Balance -325 ml 45 ml Intake Free Water 30 ml 100 ml IV Total 75 ml Tube Feeding 20 ml 345 ml Output Urine Total 450 ml 400 ml # Voids 1 # Bowel Movements 2 2 Laboratory Tests 02/17/19 21:00: Stool Occult Blood Negative 02/18/19 05:52: White Blood Count 11.7H, Red Blood Count 3.79L, Hemoglobin 10.2L, Hematocrit 32.0L, Mean Corpuscular Volume 84, Mean Corpuscular Hemoglobin 26.9L, Mean Corpuscular Hemoglobin Concent 31.8L, Red Cell Distribution Width 14.4, Platelet Count 310, Mean Platelet Volume 6.7, Neutrophils (%) (Auto) 81.1H, Lymphocytes (%) (Auto) 9.3L, Monocytes (%) (Auto) 8.9, Eosinophils (%) (Auto) 0.0, Basophils (%) (Auto) 0.7, Sodium Level 142, Potassium Level 3.7, Chloride Level 106, Carbon Dioxide Level 27, Anion Gap 9, Blood Urea Nitrogen 49H, Creatinine 2.0H, Estimat Glomerular Filtration Rate , Glucose Level 195H, Calcium Level 9.4, Phosphorus Level 2.3L, Magnesium Level 2.8H, Total Bilirubin 0.4, Aspartate Amino Transf (AST/SGOT) 15, Alanine Aminotransferase (ALT/SGPT) 17, Alkaline Phosphatase 108, Total Protein 7.4, Albumin 2.7L, Globulin 4.7, Albumin/Globulin Ratio 0.6L, Random Vancomycin Level 24.8 Height (Feet): 5 Height (Inches): 8.00 Weight (Pounds): 182 Objective no change Hansel Kirkpatrick MD Feb 18, 2019 12:13
[2019-02-18] MEDS ORDERED: Fleet's Mineral Oil Enema RECTAL SCH (13:00)
--- NOTE | 2019-02-18 13:00 | NUR ---
NURSE NOTES: Per Dr. Cheung's order, manual fecal disimpaction and mineral oil enema completed. Moderate amount of stool came out. The patient is on 2L NC continuous and saturation within normal limit. The patient is tolerating G-tube feeding Glucerna 1.5 35mL/hr. The degree of abdominal bloating improved with manual fecal disimpaction. The patient is stable without acute distress or shortness of breath. Will continue plan of care.
--- NOTE | 2019-02-18 13:18 | NUR ---
RADIOLOGY DEPT., CHEST AND ABDOMEN X-RAYS COMPLETED.-P.DYE
--- NOTE | 2019-02-18 13:44 | Diagnostic Imaging Report ---
Indication: Dyspnea Comparison: None A single view chest radiograph was obtained. Findings: Mild right basal atelectasis demonstrated on the current examination. Lung volumes remain low. The heart is enlarged. There is no evidence of pulmonary edema. IMPRESSION: Mild right basal atelectasis
--- NOTE | 2019-02-18 14:00 | NUR ---
NURSE NOTES: Left voicemail to Dr. Mace regarding Vancomycin schedule since the patient started Vancomycin yesterday and got discontinued today. Will wait for call back for clarification of vancomycin order. Will continue plan of care.
--- NOTE | 2019-02-18 14:09 | Diagnostic Imaging Report ---
Indication: Abdominal pain Comparison: 02/16/2019 Single view of the abdomen obtained Findings: Severe fecal retention in the distal colon and rectum with moderate colonic distention again demonstrated without change. IMPRESSION: No change from one day prior
--- NOTE | 2019-02-18 14:53 | Infectious Diseases Prog Note ---
Assessment/Plan Assessment/Plan 83yo gentleman with PMH HTN, CVA, asthma, DM, dementia presents from SNF with abdominal distension, abdominal pain, fever, chills. ID consulted for antimicrobial recommendation. Tmax 100.3, SP Leukocytosis, fluctuating CRP 17.8 Lactate 1.3 Unlikely UTI UA negative Bacteremia ?contaminant ?real infection BCx: 07/24 bottles Staph epi pt has no pacemaker or foreign body per chart review of past problems PNA? pt sounds congested but likely all upper secretions flu swab negative 02/15 CXR without acute disease 02/18 CXR: Mild right basal atelectasis Abdominal pain and Fecal impaction CT A/P: Massive fecal retention impaction. Gallstones. Atherosclerotic vascular disease. Spondylosis. Gastrostomy. Bilateral inguinal hernias containing fat. Degenerative changes of the spine. 02/18 XR: Severe fecal retention in the distal colon and rectum with moderate colonic distention again demonstrated without change. HTN CVA Asthma DM Dementia NARCISO/CKD Plan: continue Vancomycin #3 pending repeat bcx 02/18 DC Cefepime #3 02/17 DC flagyl #2 02/15 SP Vancomycin #1 management of fecal impaction per primary aspiration precaution, elevate HOB, DVT PPX Thank you for this consult. [facility] will continue to follow the patient with you. Subjective Allergies: Coded Allergies: NO KNOWN DRUG ALLERGIES (Unverified Allergy, Unknown, 05/29/14) Subjective Afebrile. Abd still distended but softer Objective Vital Signs Last 24 Hour Vital Signs Date Time Temp Pulse Resp B/P (MAP) Pulse Ox O2 Delivery O2 Flow Rate FiO2 02/18/19 13:16 113/74 02/18/19 13:07 113/74 02/18/19 09:29 75 125/65 02/18/19 09:24 Nasal Cannula 4.0 36 02/18/19 09:00 Nasal Cannula 2.0 02/18/19 08:00 97.9 75 18 125/65 (85) 94 02/18/19 06:45 157/83 02/18/19 06:45 157/83 02/18/19 04:00 98.2 86 20 157/83 (107) 98 02/18/19 04:00 85 02/18/19 00:00 79 02/18/19 00:00 98.2 82 22 134/89 (104) 97 02/17/19 22:24 137/87 02/17/19 22:23 137/87 02/17/19 21:00 Nasal Cannula 2.0 02/17/19 20:03 Nasal Cannula 4.0 36 02/17/19 20:03 102 26 95 Nasal Cannula 4.0 36 02/17/19 20:00 98.1 90 22 137/87 (104) 96 02/17/19 20:00 88 02/17/19 16:00 98.1 89 18 132/72 (92) 95 02/17/19 16:00 75 Height (Feet): 5 Height (Inches): 8.00 Weight (Pounds): 182 Objective Gen: NAD HEENT: anicteric sclera CV: RRR Resp: rhonchi Abd: distended. no TTP. hypoactive BS+ Neuro: awake Microbiology Date/Time Source Procedure Growth Status 02/15/19 15:05 Blood Blood Culture - Preliminary Staphylococcus Sp Coag Neg Resulted 02/15/19 14:50 Blood Blood Culture - Preliminary Staphylococcus Sp Coag Neg Resulted 02/16/19 17:00 Sputum Expectorated Gram Stain - Final Resulted 02/16/19 17:00 Sputum Expectorated Sputum Culture Pending Resulted 02/15/19 15:30 Nasal Nares - Final Complete 02/15/19 15:30 Nasal Nares - Final Complete 02/15/19 14:50 Urine,Clean Catch Urine Culture - Final NO GROWTH AFTER 48 HOURS Complete 02/15/19 15:35 Rectum - Final NO CARBAPENEM-RESISTANT ENTEROBACTERI... Complete 02/15/19 15:35 Rectum VRE Culture - Final NO VANCOMYCIN RESISTANT ENTEROCOCCUS ... Complete Laboratory Tests Test 02/17/19 21:00 02/18/19 05:52 Stool Occult Blood Negative (NEGATIVE) White Blood Count 11.7 K/UL (4.8-10.8) H Red Blood Count 3.79 M/UL (4.70-6.10) L Hemoglobin 10.2 G/DL (14.2-18.0) L Hematocrit 32.0 % (42.0-52.0) L Mean Corpuscular Volume 84 FL (80-99) Mean Corpuscular Hemoglobin 26.9 PG (27.0-31.0) L Mean Corpuscular Hemoglobin Concent 31.8 G/DL (32.0-36.0) L Red Cell Distribution Width 14.4 % (11.6-14.8) Platelet Count 310 K/UL (150-450) Mean Platelet Volume 6.7 FL (6.5-10.1) Neutrophils (%) (Auto) 81.1 % (45.0-75.0) H Lymphocytes (%) (Auto) 9.3 % (20.0-45.0) L Monocytes (%) (Auto) 8.9 % (1.0-10.0) Eosinophils (%) (Auto) 0.0 % (0.0-3.0) Basophils (%) (Auto) 0.7 % (0.0-2.0) Sodium Level 142 MMOL/L (136-145) Potassium Level 3.7 MMOL/L (3.5-5.1) Chloride Level 106 MMOL/L (98-107) Carbon Dioxide Level 27 MMOL/L (21-32) Anion Gap 9 mmol/L (5-15) Blood Urea Nitrogen 49 mg/dL (7-18) H Creatinine 2.0 MG/DL (0.55-1.30) H Estimat Glomerular Filtration Rate mL/min (>60) Glucose Level 195 MG/DL (74-106) H Calcium Level 9.4 MG/DL (8.5-10.1) Phosphorus Level 2.3 MG/DL (2.5-4.9) L Magnesium Level 2.8 MG/DL (1.8-2.4) H Total Bilirubin 0.4 MG/DL (0.2-1.0) Aspartate Amino Transf (AST/SGOT) 15 U/L (15-37) Alanine Aminotransferase (ALT/SGPT) 17 U/L (12-78) Alkaline Phosphatase 108 U/L (46-116) Total Protein 7.4 G/DL (6.4-8.2) Albumin 2.7 G/DL (3.4-5.0) L Globulin 4.7 g/dL Albumin/Globulin Ratio 0.6 (1.0-2.7) L Random Vancomycin Level 24.8 ug/mL Current Medications Medications (Trade) Dose Ordered Sig/Dimas Route PRN Reason Start Time Stop Time Status Last Admin Dose Admin Acetaminophen (Tylenol) 650 mg Q4H PRN ORAL FHMP 02/16/19 03:00 03/18/19 02:44 Albuterol/ Ipratropium (Albuterol/ Ipratropium) 3 ml Q6H PRN HHN Shortness of Breath 02/16/19 02:45 02/21/19 02:44 Amlodipine Besylate (Norvasc) 5 mg DAILY GT 02/17/19 09:00 03/18/19 08:59 02/18/19 09:29 Aspirin (ASA) 81 mg DAILY GT 02/16/19 09:00 03/18/19 08:59 02/18/19 09:28 Cefepime HCl 2 gm/ Sodium Chloride 110 ml @ 220 mls/hr QHS IVPB 02/17/19 21:00 02/23/19 20:59 02/17/19 20:29 Clonidine HCl (Catapres Tab) 0.1 mg Q8HR ORAL 02/16/19 22:00 03/18/19 08:59 02/18/19 06:45 Dextrose (Dextrose 50%) 25 ml Q30M PRN IV Hypoglycemia 02/16/19 02:45 03/18/19 02:44 Dextrose (Dextrose 50%) 50 ml Q30M PRN IV Hypoglycemia 02/16/19 02:45 03/18/19 02:44 Docusate Sodium (Colace) 100 mg TIAC GT 02/16/19 16:30 03/18/19 08:59 02/18/19 11:52 Gabapentin (Neurontin) 300 mg THREE TIMES A DAY GT 02/16/19 09:00 03/18/19 08:59 02/18/19 13:15 Heparin Sodium (Porcine) (Heparin 5000 units/ml) 5,000 units BID SUBQ 02/16/19 09:00 03/18/19 08:59 02/18/19 09:30 Hydralazine HCl (Apresoline) 25 mg EVERY 8 HOURS GT 02/16/19 22:00 03/18/19 05:59 02/18/19 13:16 Insulin Aspart (NovoLOG) BEFORE MEALS AND HS SUBQ 02/16/19 06:30 03/18/19 06:29 02/18/19 11:54 Insulin Detemir (Levemir) 12 units BID SUBQ 02/17/19 09:00 03/19/19 08:59 02/18/19 09:31 Lactulose (Cephulac) 30 gm THREE TIMES A DAY ORAL 02/17/19 13:00 03/18/19 12:59 02/18/19 13:15 Mineral Oil (Fleet's Mineral Oil Enema) 133 ml ONCE RECTAL 02/18/19 13:00 02/18/19 16:00 02/18/19 13:15 Morphine Sulfate (Morphine Sulfate) 2 mg Q4HR PRN IVP For Pain 02/15/19 23:00 02/22/19 22:59 Nitroglycerin (Ntg) 0.4 mg Q5M PRN SL Prn Chest Pain 02/16/19 02:45 03/18/19 02:44 Ondansetron HCl (Zofran) 4 mg Q4HR PRN IVP Nausea & Vomiting 02/15/19 23:00 03/17/19 22:59 Polyethylene Glycol (Miralax) 17 gm BEDTIME ORAL 02/16/19 21:00 03/18/19 20:59 02/17/19 20:22 Potassium Phosphate 20 mm/ Sodium Chloride 281.6667 ml @ 46.944 m... ONCE ONCE IV 02/18/19 11:30 02/18/19 17:29 02/18/19 11:53 Vancomycin HCl (Vanco rx to dose) 1 ea DAILY PRN MISC Per rx protocol 02/17/19 14:45 03/19/19 14:44 Joseluis Mace MD Feb 18, 2019 14:52
[2019-02-18 16:00] VITALS: BP 130/71
--- NOTE | 2019-02-18 18:00 | NUR ---
NURSE NOTES: The patient is stable without acute distress or shortness of breath. Will continue plan of care.
--- NOTE | 2019-02-18 18:30 | NUR ---
NURSE NOTES: Clarification made regarding Vancomycin with Dr. Mace and the pharmacist. Per Dr. Mace, Vancomycin per pharmacy dosing. Per pharmacist, no vancomycin today due to elevated BUN and Cr. Will endorse the communication to the night nurse.
--- NOTE | 2019-02-18 19:20 | NUR ---
HAND-OFF: Report given to TERESSA Olvera. The patient is resting on the bed without acute distress or shortness of breath. The patient's bed in the lowest position, call light in reach, and fall and strict aspiration precaution reinforced. IV sites are intact and patent. G-tube feeding running Glucerna 1.5 40mL/hr without residual. The patient is on 2L NC continuous and saturation within normal range. Informed that the patient has med/surg transfer order. Endorsed plan of care.
--- NOTE | 2019-02-18 19:25 | NUR ---
NURSE NOTES: Received report from TERESSA Ye. Patient in bed asleep showing no signs of acute distress. AOx1. Respiration even and non labored on 2L NC. Continuous No sob noted. Lung sound crackles noted, suctioned pt. as needed. GT patent and intact on Glucerna 1.5@50cc/hr. Pt. abd appears to be enlarged and tender, imaging shows fecal impactions. Pt. BM today 02/18. IV noted on left thumb 22g SL, and right pinky 24g on D5 1/2 NS @ 40cc/hr patent and intact. Bed in lowest position, wheels locked, side rails up x2 and alarm on. All needs attended and met. Will continue plan of care.
[2019-02-18 20:00] VITALS: BP 120/55
[2019-02-18] MEDS: Miralax 17gm pkt ORAL SCH (21:52)
--- NOTE | 2019-02-18 23:30 | NUR ---
HAND-OFF: Report given to TERESSA Kapoor. Patient in stable condition, No acute distress noted.
[2019-02-19] VITALS (22 sets, daily range): BP systolic 54–142; BP diastolic 38–89
[2019-02-19] MEDS ORDERED: Nitroglycerin Subl 0.4mg tab SL PRN ×2 (00:15→21:00)
[2019-02-19] MEDS ORDERED: Morphine Sulfate 2mg/ml Inj(IV/IM USE ONLY) IVP PRN ×2 (01:00→21:00)
[2019-02-19] MEDS ORDERED: Albuterol/Ipratropium 3ml neb HHN PRN (02:45)
[2019-02-19] MEDS ORDERED: Acetaminophen 650mg/20.3ml GT PRN ×2 (03:00→23:00)
[2019-02-19] MEDS: HydrALAZINE 25mg tab GT SCH ×2 (05:42→14:35)
[2019-02-19] MEDS: Docusate 100mg/10ml Liq GT SCH ×3 (05:42→17:20)
[2019-02-19] MEDS: NovoLOG Insulin Flexpen SUBQ SCH ×3 (05:45→17:23)
[2019-02-19 06:11] LABS: HEMOGLOBIN 10.4 G/DL (14.2-18.0); MEAN CORPUSCULAR VOLUME 84 FL (80-99); PLATELET COUNT 329 K/UL (150-450); RED CELL DISTRIBUTION WIDTH 14.7 % (11.6-14.8); WHITE BLOOD COUNT 15.7 K/UL (4.8-10.8)
[2019-02-19 07:11] LABS: ANION GAP 12 mmol/L (5-15); BLOOD UREA NITROGEN 46 mg/dL (7-18); CALCIUM 9.6 MG/DL (8.5-10.1); CARBON DIOXIDE 24 MMOL/L (21-32); CHLORIDE 109 MMOL/L (98-107); CREATININE 2.3 MG/DL (0.55-1.30); POTASSIUM 3.5 MMOL/L (3.5-5.1); SODIUM 145 MMOL/L (136-145)
--- NOTE | 2019-02-19 07:39 | NUR ---
HAND-OFF: Report given to Elizabeth Delacruz RN.
--- NOTE | 2019-02-19 08:01 | NUR ---
NURSE NOTES: Patient awake, non-verbal; no Nasal cannula 2 Liter, no sign of distress and shortness of breath; no sing of chest pain; IV Right-Hand 24G and Left-Hand 22G flushes well; Condom Cath in place, drains well; Glucerna 1.5 running at 50cc, no residual, head of the bed elevated, breaks engaged, bed at lowest position; will give suctioning as needed; will keep monitoring.
[2019-02-19] MEDS ORDERED: Aspirin Baby 81mg GT SCH (09:00)
[2019-02-19] MEDS ORDERED: Vancomycin 1.25gm/NS Premix IVPB ONE (09:00)
[2019-02-19] MEDS: Gabapentin 300 MG/6 ML Soln GT SCH ×3 (09:22→17:20)
[2019-02-19] MEDS: Lactulose 20gm/30ml UDC ORAL SCH ×3 (09:23→17:20)
[2019-02-19] MEDS: Heparin 5000 units/ml inj SUBQ SCH ×2 (09:26→17:22)
[2019-02-19] MEDS: Levemir Flexpen SUBQ SCH ×2 (09:59→17:24)
--- NOTE | 2019-02-19 11:18 | Pulmonology Progress Note ---
Assessment/Plan Problems: (1) Acute respiratory failure (2) Fecal impaction (3) Diabetes (4) History of CVA (cerebrovascular accident) (5) Feeding by G-tube (6) Dementia Assessment/Plan respiratory treatment no new infiltrate needs frequent suctioning titrate fio2 to sat of 92% dvt prophylaxis aspiration precaution. Subjective ROS Limited/Unobtainable: No Constitutional: Reports: no symptoms HEENT: Repors: no symptoms Respiratory: Reports: no symptoms Allergies: Coded Allergies: NO KNOWN DRUG ALLERGIES (Unverified Allergy, Unknown, 05/29/14) Objective Last 24 Hour Vital Signs Date Time Temp Pulse Resp B/P (MAP) Pulse Ox O2 Delivery O2 Flow Rate FiO2 02/19/19 09:24 99 127/67 02/19/19 09:00 Nasal Cannula 2.0 02/19/19 08:04 Nasal Cannula 4.0 36 02/19/19 08:00 98.3 99 20 127/67 (87) 96 02/19/19 05:42 134/66 02/19/19 05:42 134/66 02/19/19 04:15 99.7 107 24 134/66 (88) 92 02/19/19 00:04 99.6 95 22 142/61 (88) 92 02/18/19 21:54 130/71 02/18/19 21:52 130/71 02/18/19 21:00 Nasal Cannula 2.0 02/18/19 20:15 Nasal Cannula 4.0 36 02/18/19 20:00 99.1 80 22 120/55 (76) 94 02/18/19 20:00 83 02/18/19 16:00 78 02/18/19 16:00 98.4 80 20 130/71 (90) 97 02/18/19 13:16 113/74 02/18/19 13:07 113/74 02/18/19 12:00 98.0 80 18 113/74 (87) 95 02/18/19 12:00 80 Intake and Output 02/18/19 02/19/19 18:59 06:59 Intake Total 645 ml 490 ml Output Total 800 ml 500 ml Balance -155 ml -10 ml Intake Free Water 200 ml 200 ml Tube Feeding 445 ml 290 ml Output Urine Total 800 ml 500 ml # Voids 2 1 # Bowel Movements 3 2 General Appearance: WD/WN HEENT: normocephalic, atraumatic Respiratory/Chest: chest wall non-tender, normal breath sounds Cardiovascular: normal peripheral pulses, normal rate Abdomen: normal bowel sounds, soft, non tender Genitourinary: normal external genitalia Extremities: no clubbing Skin: no rash Neurologic/Psychiatric: transcription typist II-XII grossly normal Lymphatic: no neck adenopathy Microbiology Date/Time Source Procedure Growth Status 02/17/19 11:00 Blood Blood Culture - Preliminary NO GROWTH AFTER 24 HOURS Resulted 02/17/19 10:50 Blood Blood Culture - Preliminary NO GROWTH AFTER 24 HOURS Resulted 02/16/19 17:00 Sputum Expectorated Gram Stain - Final Resulted 02/16/19 17:00 Sputum Culture - Preliminary Gram Negative [place] Resulted Laboratory Tests 02/19/19 05:20: White Blood Count 15.7H, Red Blood Count 3.80L, Hemoglobin 10.4L, Hematocrit 32.0L, Mean Corpuscular Volume 84, Mean Corpuscular Hemoglobin 27.2, Mean Corpuscular Hemoglobin Concent 32.3, Red Cell Distribution Width 14.7, Platelet Count 329, Mean Platelet Volume 6.5, Neutrophils (%) (Auto) , Lymphocytes (%) ( Auto) , Monocytes (%) (Auto) , Eosinophils (%) (Auto) , Basophils (%) (Auto) , Differential Total Cells Counted 100, Neutrophils % (Manual) 88H, Lymphocytes % (Manual) 6L, Monocytes % (Manual) 6, Eosinophils % (Manual) 0, Basophils % ( Manual) 0, Band Neutrophils 0, Platelet Estimate Adequate, Platelet Morphology Normal, Hypochromasia 1+, Sodium Level 145, Potassium Level 3.5, Chloride Level 109H, Carbon Dioxide Level 24, Anion Gap 12, Blood Urea Nitrogen 46H, Creatinine 2.3H, Estimat Glomerular Filtration Rate , Glucose Level 191H, Calcium Level 9.6, Random Vancomycin Level 19.1 Current Medications Medications (Trade) Dose Ordered Sig/Dimas Route PRN Reason Start Time Stop Time Status Last Admin Dose Admin Acetaminophen (Tylenol) 650 mg Q4H PRN GT FHMP 02/19/19 03:00 03/18/19 02:44 Albuterol/ Ipratropium (Albuterol/ Ipratropium) 3 ml Q6H PRN HHN Shortness of Breath 02/19/19 02:45 02/21/19 02:44 Amlodipine Besylate (Norvasc) 5 mg DAILY GT 02/19/19 09:00 03/18/19 08:59 02/19/19 09:24 Aspirin (ASA) 81 mg DAILY GT 02/19/19 09:00 03/18/19 08:59 02/19/19 09:24 Clonidine HCl (Catapres Tab) 0.1 mg Q8HR GT 02/19/19 06:00 03/18/19 08:59 02/19/19 05:42 Dextrose (Dextrose 50%) 25 ml Q30M PRN IV Hypoglycemia 02/19/19 00:15 03/18/19 02:44 Dextrose (Dextrose 50%) 50 ml Q30M PRN IV Hypoglycemia 02/19/19 00:15 03/18/19 02:44 Docusate Sodium (Colace) 100 mg TIAC GT 02/19/19 06:30 03/18/19 08:59 02/19/19 05:42 Gabapentin (Neurontin) 300 mg THREE TIMES A DAY GT 02/19/19 09:00 03/18/19 08:59 02/19/19 09:22 Heparin Sodium (Porcine) (Heparin 5000 units/ml) 5,000 units BID SUBQ 02/19/19 09:00 03/18/19 08:59 02/19/19 09:26 Hydralazine HCl (Apresoline) 25 mg EVERY 8 HOURS GT 02/19/19 06:00 03/18/19 05:59 02/19/19 05:42 Insulin Aspart (NovoLOG) BEFORE MEALS AND HS SUBQ 02/19/19 06:30 03/18/19 06:29 02/19/19 05:45 Insulin Detemir (Levemir) 12 units BID SUBQ 02/19/19 09:00 03/19/19 08:59 02/19/19 09:59 Lactulose (Cephulac) 30 gm THREE TIMES A DAY ORAL 02/19/19 09:00 03/18/19 12:59 02/19/19 09:23 Morphine Sulfate (Morphine Sulfate) 2 mg Q4HR PRN IVP For Pain 02/19/19 01:00 02/22/19 22:59 Nitroglycerin (Ntg) 0.4 mg Q5M PRN SL Prn Chest Pain 02/19/19 00:15 03/18/19 02:44 Ondansetron HCl (Zofran) 4 mg Q4HR PRN IVP Nausea & Vomiting 02/19/19 01:00 03/17/19 22:59 Polyethylene Glycol (Miralax) 17 gm BEDTIME ORAL 02/19/19 21:00 03/18/19 20:59 Vancomycin HCl (Vanco rx to dose) 1 ea DAILY PRN MISC Per rx protocol 02/19/19 09:00 03/19/19 14:44 Wang Guzman MD Feb 19, 2019 11:17
--- NOTE | 2019-02-19 11:51 | Infectious Diseases Prog Note ---
Assessment/Plan Assessment/Plan 83yo gentleman with PMH HTN, CVA, asthma, DM, dementia presents from SNF with abdominal distension, abdominal pain, fever, chills. ID consulted for antimicrobial recommendation. Tmax 100.3, SP Leukocytosis, fluctuating ddx infection vs atelectasis vs aspiration vs fecal impaction CRP 17.8 Lactate 1.3 Unlikely UTI UA negative Bacteremia--contaminant? BCx: 07/24 bottles Staph warneri pt has no pacemaker or foreign body per chart review of past problems Repeat BCx: P PNA? pt sounds congested but likely all upper secretions flu swab negative 02/15 CXR without acute disease 02/16 sputum cx: GNR 02/18 CXR: Mild right basal atelectasis Abdominal pain and Fecal impaction CT A/P: Massive fecal retention impaction. Gallstones. Atherosclerotic vascular disease. Spondylosis. Gastrostomy. Bilateral inguinal hernias containing fat. Degenerative changes of the spine. 02/18 XR: Severe fecal retention in the distal colon and rectum with moderate colonic distention again demonstrated without change. HTN CVA Asthma DM Dementia NARCISO/CKD Plan: continue Vancomycin #4 pending repeat bcx Cefepime #4, flagyl #3 02/15 SP Vancomycin #1 management of fecal impaction per primary aspiration precaution, elevate HOB, DVT PPX repeat XR abd Thank you for this consult. [facility] will continue to follow the patient with you. Subjective Allergies: Coded Allergies: NO KNOWN DRUG ALLERGIES (Unverified Allergy, Unknown, 05/29/14) Subjective Afebrile. Tmax 99.7 Abd distension worse today Groaning Objective Vital Signs Last 24 Hour Vital Signs Date Time Temp Pulse Resp B/P (MAP) Pulse Ox O2 Delivery O2 Flow Rate FiO2 02/19/19 09:24 99 127/67 02/19/19 09:00 Nasal Cannula 2.0 02/19/19 08:04 Nasal Cannula 4.0 36 02/19/19 08:00 98.3 99 20 127/67 (87) 96 02/19/19 05:42 134/66 02/19/19 05:42 134/66 02/19/19 04:15 99.7 107 24 134/66 (88) 92 02/19/19 00:04 99.6 95 22 142/61 (88) 92 02/18/19 21:54 130/71 02/18/19 21:52 130/71 02/18/19 21:00 Nasal Cannula 2.0 02/18/19 20:15 Nasal Cannula 4.0 36 02/18/19 20:00 99.1 80 22 120/55 (76) 94 02/18/19 20:00 83 02/18/19 16:00 78 02/18/19 16:00 98.4 80 20 130/71 (90) 97 02/18/19 13:16 113/74 02/18/19 13:07 113/74 02/18/19 12:00 98.0 80 18 113/74 (87) 95 02/18/19 12:00 80 Height (Feet): 5 Height (Inches): 8.00 Weight (Pounds): 182 Objective Gen: NAD HEENT: anicteric sclera CV: RRR Resp: rhonchi Abd: distended. no TTP. hypoactive BS+ Neuro: awake Microbiology Date/Time Source Procedure Growth Status 02/17/19 11:00 Blood Blood Culture - Preliminary NO GROWTH AFTER 24 HOURS Resulted 02/17/19 10:50 Blood Blood Culture - Preliminary NO GROWTH AFTER 24 HOURS Resulted 02/16/19 17:00 Sputum Expectorated Gram Stain - Final Resulted 02/16/19 17:00 Sputum Culture - Preliminary Gram Negative [place] Resulted Laboratory Tests Test 02/19/19 05:20 White Blood Count 15.7 K/UL (4.8-10.8) H Red Blood Count 3.80 M/UL (4.70-6.10) L Hemoglobin 10.4 G/DL (14.2-18.0) L Hematocrit 32.0 % (42.0-52.0) L Mean Corpuscular Volume 84 FL (80-99) Mean Corpuscular Hemoglobin 27.2 PG (27.0-31.0) Mean Corpuscular Hemoglobin Concent 32.3 G/DL (32.0-36.0) Red Cell Distribution Width 14.7 % (11.6-14.8) Platelet Count 329 K/UL (150-450) Mean Platelet Volume 6.5 FL (6.5-10.1) Neutrophils (%) (Auto) % (45.0-75.0) Lymphocytes (%) (Auto) % (20.0-45.0) Monocytes (%) (Auto) % (1.0-10.0) Eosinophils (%) (Auto) % (0.0-3.0) Basophils (%) (Auto) % (0.0-2.0) Differential Total Cells Counted 100 Neutrophils % (Manual) 88 % (45-75) H Lymphocytes % (Manual) 6 % (20-45) L Monocytes % (Manual) 6 % (1-10) Eosinophils % (Manual) 0 % (0-3) Basophils % (Manual) 0 % (0-2) Band Neutrophils 0 % (0-8) Platelet Estimate Adequate Platelet Morphology Normal Hypochromasia 1+ Sodium Level 145 MMOL/L (136-145) Potassium Level 3.5 MMOL/L (3.5-5.1) Chloride Level 109 MMOL/L (98-107) H Carbon Dioxide Level 24 MMOL/L (21-32) Anion Gap 12 mmol/L (5-15) Blood Urea Nitrogen 46 mg/dL (7-18) H Creatinine 2.3 MG/DL (0.55-1.30) H Estimat Glomerular Filtration Rate mL/min (>60) Glucose Level 191 MG/DL (74-106) H Calcium Level 9.6 MG/DL (8.5-10.1) Random Vancomycin Level 19.1 ug/mL Current Medications Medications (Trade) Dose Ordered Sig/Dimas Route PRN Reason Start Time Stop Time Status Last Admin Dose Admin Acetaminophen (Tylenol) 650 mg Q4H PRN GT FHMP 02/19/19 03:00 03/18/19 02:44 Albuterol/ Ipratropium (Albuterol/ Ipratropium) 3 ml Q6H PRN HHN Shortness of Breath 02/19/19 02:45 02/21/19 02:44 Amlodipine Besylate (Norvasc) 5 mg DAILY GT 02/19/19 09:00 03/18/19 08:59 02/19/19 09:24 Aspirin (ASA) 81 mg DAILY GT 02/19/19 09:00 03/18/19 08:59 02/19/19 09:24 Clonidine HCl (Catapres Tab) 0.1 mg Q8HR GT 02/19/19 06:00 03/18/19 08:59 02/19/19 05:42 Dextrose (Dextrose 50%) 25 ml Q30M PRN IV Hypoglycemia 10/31/19 00:15 03/18/19 02:44 Dextrose (Dextrose 50%) 50 ml Q30M PRN IV Hypoglycemia 02/19/19 00:15 03/18/19 02:44 Docusate Sodium (Colace) 100 mg TIAC GT 02/19/19 06:30 03/18/19 08:59 02/19/19 05:42 Gabapentin (Neurontin) 300 mg THREE TIMES A DAY GT 02/19/19 09:00 03/18/19 08:59 02/19/19 09:22 Heparin Sodium (Porcine) (Heparin 5000 units/ml) 5,000 units BID SUBQ 02/19/19 09:00 03/18/19 08:59 02/19/19 09:26 Hydralazine HCl (Apresoline) 25 mg EVERY 8 HOURS GT 02/19/19 06:00 03/18/19 05:59 02/19/19 05:42 Insulin Aspart (NovoLOG) BEFORE MEALS AND HS SUBQ 02/19/19 06:30 03/18/19 06:29 02/19/19 05:45 Insulin Detemir (Levemir) 12 units BID SUBQ 02/19/19 09:00 03/19/19 08:59 02/19/19 09:59 Lactulose (Cephulac) 30 gm THREE TIMES A DAY ORAL 02/19/19 09:00 03/18/19 12:59 02/19/19 09:23 Morphine Sulfate (Morphine Sulfate) 2 mg Q4HR PRN IVP For Pain 02/19/19 01:00 02/22/19 22:59 Nitroglycerin (Ntg) 0.4 mg Q5M PRN SL Prn Chest Pain 02/19/19 00:15 03/18/19 02:44 Ondansetron HCl (Zofran) 4 mg Q4HR PRN IVP Nausea & Vomiting 02/19/19 01:00 03/17/19 22:59 Polyethylene Glycol (Miralax) 17 gm BEDTIME ORAL 02/19/19 21:00 03/18/19 20:59 Vancomycin HCl (Vanco rx to dose) 1 ea DAILY PRN MISC Per rx protocol 02/19/19 09:00 03/19/19 14:44 Joseluis Mace MD Feb 19, 2019 11:51
--- NOTE | 2019-02-19 12:27 | Nephrology Progress Note ---
Assessment/Plan Problem List: (1) Acute on chronic renal failure (2) ATN (acute tubular necrosis) Assessment: Cr rising (3) UTI (urinary tract infection) (4) Anemia Assessment Renal failure- Acute on Chronic Fever Sepsis Fecal impaction UTI (urinary tract infection) Plan kong- hold Vanco, monitor levels Hydrate BP and BS check monitor renal parameters Laxatives antibiotics med-surg Subjective ROS Limited/Unobtainable: No Constitutional: Reports: malaise, weakness Objective Objective Last 24 Hour Vital Signs Date Time Temp Pulse Resp B/P (MAP) Pulse Ox O2 Delivery O2 Flow Rate FiO2 02/19/19 09:24 99 127/67 02/19/19 09:00 Nasal Cannula 2.0 02/19/19 08:04 Nasal Cannula 4.0 36 02/19/19 08:00 98.3 99 20 127/67 (87) 96 02/19/19 05:42 134/66 02/19/19 05:42 134/66 02/19/19 04:15 99.7 107 24 134/66 (88) 92 02/19/19 00:04 99.6 95 22 142/61 (88) 92 02/18/19 21:54 130/71 02/18/19 21:52 130/71 02/18/19 21:00 Nasal Cannula 2.0 02/18/19 20:15 Nasal Cannula 4.0 36 02/18/19 20:00 99.1 80 22 120/55 (76) 94 02/18/19 20:00 83 02/18/19 16:00 78 02/18/19 16:00 98.4 80 20 130/71 (90) 97 02/18/19 13:16 113/74 02/18/19 13:07 113/74 Intake and Output 02/18/19 02/19/19 18:59 06:59 Intake Total 645 ml 490 ml Output Total 800 ml 500 ml Balance -155 ml -10 ml Intake Free Water 200 ml 200 ml Tube Feeding 445 ml 290 ml Output Urine Total 800 ml 500 ml # Voids 2 1 # Bowel Movements 3 2 Laboratory Tests 02/19/19 05:20: White Blood Count 15.7H, Red Blood Count 3.80L, Hemoglobin 10.4L, Hematocrit 32.0L, Mean Corpuscular Volume 84, Mean Corpuscular Hemoglobin 27.2, Mean Corpuscular Hemoglobin Concent 32.3, Red Cell Distribution Width 14.7, Platelet Count 329, Mean Platelet Volume 6.5, Neutrophils (%) (Auto) , Lymphocytes (%) ( Auto) , Monocytes (%) (Auto) , Eosinophils (%) (Auto) , Basophils (%) (Auto) , Differential Total Cells Counted 100, Neutrophils % (Manual) 88H, Lymphocytes % (Manual) 6L, Monocytes % (Manual) 6, Eosinophils % (Manual) 0, Basophils % ( Manual) 0, Band Neutrophils 0, Platelet Estimate Adequate, Platelet Morphology Normal, Hypochromasia 1+, Sodium Level 145, Potassium Level 3.5, Chloride Level 109H, Carbon Dioxide Level 24, Anion Gap 12, Blood Urea Nitrogen 46H, Creatinine 2.3H, Estimat Glomerular Filtration Rate , Glucose Level 191H, Calcium Level 9.6, Random Vancomycin Level 19.1 Height (Feet): 5 Height (Inches): 8.00 Weight (Pounds): 182 General Appearance: no apparent distress Respiratory/Chest: decreased breath sounds Abdomen: distended Objective no change Hansel Kirkpatrick MD Feb 19, 2019 12:27
--- NOTE | 2019-02-19 12:45 | NUR ---
RADIOLOGY DEPT., JETHRO KENDRICK
[2019-02-19] MEDS ORDERED: Cefepime HCl 2 GM in D5W 55 ML IVPB SCH (13:00)
--- NOTE | 2019-02-19 13:11 | GI Progress Note ---
Assessment/Plan Problems: (1) Abdominal distention ICD Codes: R14.0 - Abdominal distension (gaseous) SNOMED: 43195328 (2) Anemia ICD Codes: D64.9 - Anemia, unspecified SNOMED: 073169484 (3) Dementia ICD Codes: F03.90 - Unspecified dementia without behavioral disturbance SNOMED: 78336635 (4) Fecal impaction ICD Codes: K56.41 - Fecal impaction SNOMED: 86198927 (5) Feeding by G-tube ICD Codes: Z93.1 - Gastrostomy status SNOMED: 043921452, 569122762 Status: unchanged Status Narrative Discussed with Dr. Cheung. Assessment/Plan s/p GT placement at the bedside anemia work up>>>> iron def failed swallow evaluation severe abdominal distention stool impaction>> s/p manual disimpaction hold GTFs, NPO stat KUB GT to LIS bowel regimen hold work up for panc cyst given poor protoplasm will follow up The patient was seen and examined at bedside and all new and available data was reviewed in the patients chart. I agree with the above findings, impression and plan. (Patient seen earlier today. Signature stamp does not reflect patient encounter time.). - Faustino Cheung MD Subjective Subjective limited Objective Last 24 Hour Vital Signs Date Time Temp Pulse Resp B/P (MAP) Pulse Ox O2 Delivery O2 Flow Rate FiO2 02/19/19 09:24 99 127/67 02/19/19 09:00 Nasal Cannula 2.0 02/19/19 08:04 Nasal Cannula 4.0 36 02/19/19 08:00 98.3 99 20 127/67 (87) 96 02/19/19 05:42 134/66 02/19/19 05:42 134/66 02/19/19 04:15 99.7 107 24 134/66 (88) 92 02/19/19 00:04 99.6 95 22 142/61 (88) 92 02/18/19 21:54 130/71 02/18/19 21:52 130/71 02/18/19 21:00 Nasal Cannula 2.0 02/18/19 20:15 Nasal Cannula 4.0 36 02/18/19 20:00 99.1 80 22 120/55 (76) 94 02/18/19 20:00 83 02/18/19 16:00 78 02/18/19 16:00 98.4 80 20 130/71 (90) 97 02/18/19 13:16 113/74 Intake and Output 02/18/19 02/19/19 18:59 06:59 Intake Total 645 ml 490 ml Output Total 800 ml 500 ml Balance -155 ml -10 ml Intake Free Water 200 ml 200 ml Tube Feeding 445 ml 290 ml Output Urine Total 800 ml 500 ml # Voids 2 1 # Bowel Movements 3 2 Laboratory Tests Test 02/19/19 05:20 White Blood Count 15.7 K/UL (4.8-10.8) H Red Blood Count 3.80 M/UL (4.70-6.10) L Hemoglobin 10.4 G/DL (14.2-18.0) L Hematocrit 32.0 % (42.0-52.0) L Mean Corpuscular Volume 84 FL (80-99) Mean Corpuscular Hemoglobin 27.2 PG (27.0-31.0) Mean Corpuscular Hemoglobin Concent 32.3 G/DL (32.0-36.0) Red Cell Distribution Width 14.7 % (11.6-14.8) Platelet Count 329 K/UL (150-450) Mean Platelet Volume 6.5 FL (6.5-10.1) Neutrophils (%) (Auto) % (45.0-75.0) Lymphocytes (%) (Auto) % (20.0-45.0) Monocytes (%) (Auto) % (1.0-10.0) Eosinophils (%) (Auto) % (0.0-3.0) Basophils (%) (Auto) % (0.0-2.0) Differential Total Cells Counted 100 Neutrophils % (Manual) 88 % (45-75) H Lymphocytes % (Manual) 6 % (20-45) L Monocytes % (Manual) 6 % (1-10) Eosinophils % (Manual) 0 % (0-3) Basophils % (Manual) 0 % (0-2) Band Neutrophils 0 % (0-8) Platelet Estimate Adequate Platelet Morphology Normal Hypochromasia 1+ Sodium Level 145 MMOL/L (136-145) Potassium Level 3.5 MMOL/L (3.5-5.1) Chloride Level 109 MMOL/L (98-107) H Carbon Dioxide Level 24 MMOL/L (21-32) Anion Gap 12 mmol/L (5-15) Blood Urea Nitrogen 46 mg/dL (7-18) H Creatinine 2.3 MG/DL (0.55-1.30) H Estimat Glomerular Filtration Rate mL/min (>60) Glucose Level 191 MG/DL (74-106) H Calcium Level 9.6 MG/DL (8.5-10.1) Random Vancomycin Level 19.1 ug/mL Height (Feet): 5 Height (Inches): 8.00 Weight (Pounds): 182 General Appearance: no apparent distress Cardiovascular: normal rate Respiratory/Chest: normal breath sounds, no respiratory distress Abdominal Exam: normal bowel sounds, non tender, soft, distended Extremities: non-tender Chetna Perez NP Feb 19, 2019 13:11
--- NOTE | 2019-02-19 13:33 | General Progress Note ---
Assessment/Plan Problem List: (1) Anemia ICD Codes: D64.9 - Anemia, unspecified SNOMED: 487470851 (2) Malfunction of gastrostomy tube ICD Codes: K94.23 - Gastrostomy malfunction SNOMED: 701651302 (3) UTI (urinary tract infection) ICD Codes: N39.0 - Urinary tract infection, site not specified SNOMED: 37163602 Qualifiers: Qualified Codes: N30.00 - Acute cystitis without hematuria (4) Dementia ICD Codes: F03.90 - Unspecified dementia without behavioral disturbance SNOMED: 60769294 (5) History of CVA (cerebrovascular accident) ICD Codes: Z86.73 - Personal history of transient ischemic attack (TIA), and cerebral infarction without residual deficits SNOMED: 891582894 (6) Diabetes ICD Codes: E11.9 - Type 2 diabetes mellitus without complications SNOMED: 10003018 (7) HTN (hypertension) ICD Codes: I10 - Essential (primary) hypertension SNOMED: 96383705 (8) CHF (congestive heart failure) ICD Codes: I50.9 - Heart failure, unspecified SNOMED: 19905249 Status: unchanged Assessment/Plan: pt diet abx cbc bmp am dc plan Subjective Constitutional: Reports: weakness Allergies: Coded Allergies: NO KNOWN DRUG ALLERGIES (Unverified Allergy, Unknown, 05/29/14) All Systems: reviewed and negative except above Subjective o2nc sleepy calm Objective Last 24 Hour Vital Signs Date Time Temp Pulse Resp B/P (MAP) Pulse Ox O2 Delivery O2 Flow Rate FiO2 02/19/19 09:24 99 127/67 02/19/19 09:00 Nasal Cannula 2.0 02/19/19 08:04 Nasal Cannula 4.0 36 02/19/19 08:00 98.3 99 20 127/67 (87) 96 02/19/19 05:42 134/66 02/19/19 05:42 134/66 02/19/19 04:15 99.7 107 24 134/66 (88) 92 02/19/19 00:04 99.6 95 22 142/61 (88) 92 02/18/19 21:54 130/71 02/18/19 21:52 130/71 02/18/19 21:00 Nasal Cannula 2.0 02/18/19 20:15 Nasal Cannula 4.0 36 02/18/19 20:00 99.1 80 22 120/55 (76) 94 02/18/19 20:00 83 02/18/19 16:00 78 02/18/19 16:00 98.4 80 20 130/71 (90) 97 Intake and Output 02/18/19 02/19/19 18:59 06:59 Intake Total 645 ml 490 ml Output Total 800 ml 500 ml Balance -155 ml -10 ml Intake Free Water 200 ml 200 ml Tube Feeding 445 ml 290 ml Output Urine Total 800 ml 500 ml # Voids 2 1 # Bowel Movements 3 2 Laboratory Tests 02/19/19 05:20: White Blood Count 15.7H, Red Blood Count 3.80L, Hemoglobin 10.4L, Hematocrit 32.0L, Mean Corpuscular Volume 84, Mean Corpuscular Hemoglobin 27.2, Mean Corpuscular Hemoglobin Concent 32.3, Red Cell Distribution Width 14.7, Platelet Count 329, Mean Platelet Volume 6.5, Neutrophils (%) (Auto) , Lymphocytes (%) ( Auto) , Monocytes (%) (Auto) , Eosinophils (%) (Auto) , Basophils (%) (Auto) , Differential Total Cells Counted 100, Neutrophils % (Manual) 88H, Lymphocytes % (Manual) 6L, Monocytes % (Manual) 6, Eosinophils % (Manual) 0, Basophils % ( Manual) 0, Band Neutrophils 0, Platelet Estimate Adequate, Platelet Morphology Normal, Hypochromasia 1+, Sodium Level 145, Potassium Level 3.5, Chloride Level 109H, Carbon Dioxide Level 24, Anion Gap 12, Blood Urea Nitrogen 46H, Creatinine 2.3H, Estimat Glomerular Filtration Rate , Glucose Level 191H, Calcium Level 9.6, Random Vancomycin Level 19.1 Height (Feet): 5 Height (Inches): 8.00 Weight (Pounds): 182 General Appearance: lethargic EENT: normal ENT inspection Neck: normal alignment Cardiovascular: normal peripheral pulses, normal rate, regular rhythm Respiratory/Chest: chest wall non-tender, lungs clear, normal breath sounds Abdomen: normal bowel sounds, non tender, soft Extremities: normal inspection Edema: no edema noted Arm (L), no edema noted Arm (R), no edema noted Leg (L), no edema noted Leg (R), no edema noted Pedal (L), no edema noted Pedal (R), no edema noted Generalized Neurologic: motor weakness Skin: normal pigmentation, warm/dry Remberto Joe DO Feb 19, 2019 13:33
--- NOTE | 2019-02-19 13:52 | NUR ---
RD ASSESSMENT & RECOMMENDATIONS SEE CARE ACTIVITY FOR COMPLETE ASSESSMENT DAILY ESTIMATED NEEDS: Needs based on DM, wound/ 67kg abw 25-30 kcals/kg total kcals 1.25-1.5 g protein/kg 84-101 g total protein 25-30 mL/kg total fluid mLs NUTRITION DIAGNOSIS: *Swallowing difficulty R/T dysphagia, h/o CVA as evidenced by pt is PEG dep, now NPO ordered w/ GT to LIS. CURRENT TF:Glucerna 1.5 @ 50ml/hr x 24 hrs -> now w/ an order for NPO ENTERAL NUTRITION RECOMMENDATIONS: Glucerna 1.5 @ 50ml/hr x 24 hrs to provide 1200ml, 1800 kcal, 99g pro, 911mll free H2O * As medically appropriate, resume TF * HOB over 30 degrees/ water flush per MD. * TF at goal meets 100% est needs. ADDITIONAL RECOMMENDATIONS: * per SNF: 66inches + 167lbs (01/22 wts) * Wound care: rec WC eval @ sacrum once medically appropriate add SUSIE BID + Vit C 250mg QD * Rec carb control formula as above (A1C 6.7) * Monitor NPO status: NPO, GT to LIS as of 02/19
[2019-02-19] MEDS ORDERED: metroNIDAZOLE 500mg tab ORAL SCH ×2 (14:00→22:00)
[2019-02-19] MEDS ORDERED: Albumin Human 5% 250ml IV SCH (14:00)
--- NOTE | 2019-02-19 15:44 | Diagnostic Imaging Report ---
Indication: Abdominal pain Comparison: 02/18/2019 Single view of the abdomen obtained Findings: Similar findings initiated with the moderate dilatation of colon with the severe fecal impaction. Holliday catheter noted. IMPRESSION: Fecal impaction. No change
--- NOTE | 2019-02-19 17:12 | NUR ---
NURSE NOTES:WOUND CARE NOTES: Non-blanching erythema without induration noted to R and L clefts of buttocks and sacral area.Pt did not exhibit any signs to indicate pain when affected areas palpated. Both heels are dry, callused without erythema. NO other skin concerns noted. Tx.plan: Apply Moisture Barrier paste to buttocks. Cover sacral area with Optifoam drsg. Change every 3 days and prn. Apply Cavilon Skin Barrier to both heels. Cover each heel with Optifoam drsg. Change every 7 days and prn. Reposition at least every 2hours or as tolerated. Off-load heels with pillow.
--- NOTE | 2019-02-19 17:26 | NUR ---
NURSE NOTES: Patient's abdomen noted to be distended and hard. GI TRAP PULLER notified. New orders received.
--- NOTE | 2019-02-19 19:05 | NUR ---
CODE BLUE: See Code sheet which remains on paper.
--- NOTE | 2019-02-19 19:14 | NUR ---
HAND-OFF: Report given to TERESSA Quiros.
--- NOTE | 2019-02-19 19:43 | NUR ---
NURSE NOTES: After hand-off report given to oncoming nurse, Patient found unresponsive and code blue called; PM nurseEmelia communicated MD Joe; I called trey's daughter Ángela at [phone] and left a voice message regarding patient's situation and also left my name and call back number.
--- NOTE | 2019-02-19 19:50 | NUR ---
RESPIRATORY NOTE: code blue was called for pt, pt found unresponsive, compressions were initiated with ambubag ventilation, pt intubated pr dr Castillo with 7.5 ETT tube @ 21LL anchor fast was placed to secure ETT, pt was transfered to ICU for further monitoring, pt placed on vent with setting of AC 16 500 +5 100% alarms are on x audible vent plugged in red outlet, will continue to monitor the pt
--- NOTE | 2019-02-19 20:00 | NUR ---
NURSE NOTES: Transferred pt in from S/P code blue. Pt unresponsive, no gag reflex, no movement of any extremity, orally intubated. Pt critical with unstable vital signs. IV and pressors infusing via right lower leg IO inserted during the code. Abdomen distended, firm with very hypoactive bowel sounds.Placed GT to suction but nothing coming out. Inserted an NGT and awaiting abdominal Xray for placement. Awaiting for ERMD to insert a central line. FC patent draining cloudy urine. Skin however is intact with old healed sacral wound. GT connected to gravity drainage and small amts of brownish gastric contents came out. Levophed gtt at 30mcg/min which was started during the code. Will monitor vital signs q 15minutes. Family was informed, Dr Guzman was called for orders.
--- NOTE | 2019-02-19 20:01 | NUR ---
NURSE NOTES: After receiving report at 1905,went to patient room and found patient unresponsive,no pulse,no heart rate, no BP, called carlos martel,CPR initiated.Carlos amrtel team arrived immediately and at 193 patient revived and transferred to ICU.Bonnie Joe and Dr Guzman informed. left message to patient relative Violette Mojica at tel no [phone] regarding transfer of patient to ICU.
[2019-02-19] MEDS ORDERED: Norepinephrine Bitartrate 16 MG in D5W 500ml 484 ML IV SCH (20:15)
--- NOTE | 2019-02-19 20:15 | NUR ---
NURSE NOTES: Called and left message for MD Guzman. Patient post code and pressors are needed. awaiting call back
--- NOTE | 2019-02-19 20:30 | NUR ---
NURSE NOTES: ERMD here and inserted a TLC on right IJ. CXR and abdominal Xray done. MD confirmed placement of central, OK to use. NGT not seen. Pulled NGT out and maintained GT to gravity drainage. Abd remains distended.
[2019-02-19] MEDS ORDERED: Miralax 17gm pkt ORAL SCH ×2 (21:00)
[2019-02-19] MEDS ORDERED: NovoLOG Insulin Flexpen SUBQ SCH (21:00)
--- NOTE | 2019-02-19 21:04 | NUR ---
NURSE NOTES: MD Guzman called back with orders for morning labs and place Gt to suction at this time.
--- NOTE | 2019-02-19 21:30 | NUR ---
NURSE NOTES: Notified MD Guzman about post intubation ABG at this time and current IV fluids running. awaiting call back
--- NOTE | 2019-02-19 21:32 | Diagnostic Imaging Report ---
Indication: Post nasogastric tube placement Technique: Supine view of the abdomen Comparison: Same day 9 hours earlier Findings: No nasogastric tube is demonstrated. Note that this is demonstrated to be coiled in the hypopharynx on simultaneous chest radiograph. Gas-filled upper limits of normal caliber colon is again demonstrated, unchanged. Impression: No visualization of the nasogastric tube, demonstrated to be coiled in hypopharynx on chest radiograph performed at the same time program Stable findings as described This agrees with the preliminary interpretation provided overnight by [facility].
--- NOTE | 2019-02-19 21:38 | Diagnostic Imaging Report ---
Indication: Post endotracheal tube placement Technique: One view of the chest Comparison: 02/18/2019 Findings: There is an endotracheal tube in place, tip of which projects proximal 4 cm above the ema, in good position. There is a nasogastric tube seen coiled in the hypopharynx. Bilateral mostly interstitial infiltrates and bilateral atelectatic changes are again demonstrated, slightly increased. The heart remains enlarged. There are overlying defibrillator paddles. Impression: Satisfactory endotracheal intubation Malposition of nasogastric tube, coiled in the hypopharynx Worsening pulmonary edema Cardiomegaly This agrees with the preliminary interpretation provided overnight by [facility].
--- NOTE | 2019-02-19 21:46 | Emergency Room Report ---
Physical Exam Vital Signs Date Time Temp Pulse Resp B/P (MAP) Pulse Ox O2 Delivery O2 Flow Rate FiO2 02/15/19 14:26 99.7 88 22 119/64 (82) 94 Room Air 02/17/19 20:03 4.0 36 Medical Decision Making Diagnostic Impression: Primary Impression: Fever Additional Impressions: Fecal impaction Sepsis UTI (urinary tract infection) Qualified Codes: N30.00 - Acute cystitis without hematuria Cardiac arrest ER Course I was called to the medical floor for CODE BLUE. Patient is an 83-year-old male who was admitted for sepsis and recently had a gastrostomy tube placed. Per medical staff, on rounds he was found to be apneic and pulseless. Unknown downtime. Cardiac compressions were underway on my arrival in the room and the patient is already received 1 dose of epinephrine. I placed a intraosseous line in the right tibia for additional access. Patient was given multiple rounds of epinephrine and bicarb according to ACLS protocols. Pulse checks showed asystole. Patient had a distended abdomen and one episode of emesis. He was intubated with a 7.5 ET tube and suctioned. Achieved ROSC with a sinus rhythm. Patient had strong systolic pressures. No shocks were delivered. Patient was transported to the ICU. Right internal jugular line was placed. Chest x-ray shows appropriate placement of chest tube and central line without pneumothorax. Admitted to ICU for further management. Chest X-Ray Diagnostic Results Chest X-Ray Diagnostic Results : Chest X-Ray Ordered: Yes Indication: Other - Tube in line check EP Interpretation: Yes Interpretation: other - ET tube at the level of the ema. Internal jugular line over the right heart border. Impression: Other - Adequate ET tube and central line placement Electronically Signed by: Electronically signed by Dr. Edil Castillo Last Vital Signs Date Time Temp Pulse Resp B/P (MAP) Pulse Ox O2 Delivery O2 Flow Rate FiO2 02/19/19 20:32 Nasal Cannula 4.0 36 02/19/19 16:00 98.9 100 20 131/63 (85) 98 Disposition: ADMITTED INPATIENT Condition: Critical Referrals: Remberto Joe DO (PCP) Procedures Central Line Central Line : Consent: Emergent Central Line Lumen: triple Maximal Sterile Barrier Tech: yes mask, yes sterile gown, yes sterile gloves , yes large sterile sheet, yes hand hygiene, yes chlorhexidine prep No Max Barrier Tech Because: emergency insertion Central Line Postion: internal jugular (R) Complications: none Central Line Post Position: sutured, good blood return, position confirmed w / CXR Attempts: One Patient Tolerated: Well Complications: None CPR/Code Blue CPR/Code Blue Narrative Arrived with the patient in asystole arrest. Multiple rounds of compressions, epinephrine and bicarb delivered. Patient had achieved return of spontaneous circulation with a sinus appearing rhythm. Pressures were strong. He was transported to the ICU for further management. Additional Procedure Procedure Narrative Total critical care time: Approximately 30 minutes Due to a high probability of clinically significant, life threatening deterioration, the patient required the highest level of preparedness to intervene emergently and I personally spent this critical care time directly and personally managing the patient. This critical care time included obtaining a history, examining the patient, pulse oximetry, ordering and reviewing studies , ordering treatments, evaluating response to treatment and updating management plan as needed, frequent reassessment and discussion with other providers as well as arranging for ultimate disposition. This critical to care time was performed to assess and manage the high probability of life-threatening deterioration that could result in multiorgan failure. This critical care time is separate from the separately billable procedures and treating other patients. Edil Castillo MD Feb 19, 2019 21:46
--- NOTE | 2019-02-19 21:55 | NUR ---
NURSE NOTES: MD Guzman called back with new Vent setting AC 18, VT 600, Peep 5 and titrate fio2. Also IV Fluids to be changed, new orders NS @ 100
[2019-02-19] MEDS ORDERED: HydrALAZINE 25mg tab GT SCH (22:00)
--- NOTE | 2019-02-19 22:31 | NUR ---
NURSE NOTES: Family at the bedside and code status was changed by daughter Dasha Mojica. She is the decision maker at this time. Patient to be DNR. POLST completed by daughter and message left for MD Guzman.
[2019-02-20] VITALS (23 sets, daily range): BP systolic 43–113; BP diastolic 27–77
--- NOTE | 2019-02-20 | NUR ---
NURSE NOTES: Remains comatose; BP 113/77; continues on Levophed gtt at 30mcg/min. No urine output. Bladder scanned, bladder empty.Abdomen remains distended
--- NOTE | 2019-02-20 02:00 | NUR ---
NURSE NOTES: BP 98/56. HR 99 faint via palpation. Levophed gtt continues at 30mcg/min. Still 0 urine output
[2019-02-20] MEDS ORDERED: Albuterol/Ipratropium 3ml neb HHN PRN (02:45)
--- NOTE | 2019-02-20 04:00 | NUR ---
NURSE NOTES:Abdomen more distended and board like. Bowel sounds very hypoactive. Small amt of drainage from GT.Disempacted manually and obtained soft stools with subsequent escape of gas.Abdomen got a little softer but still distended. Pt mottled all over. Levophed gtt maintained at 30mcg/min.
--- NOTE | 2019-02-20 04:30 | NUR ---
NURSE NOTES: Pt's HR dropped down to 40. BP 60 systolic. Pulses very faint via doppler.Pt mottled. No urine output. Pt on 100%fiO2. Placed on flat/ modified trendelenburg position
--- NOTE | 2019-02-20 04:37 | NUR ---
NURSE NOTES: Called and left message for MD Guzman at this time. Patient Sinus bandar 40's and SPB 40's awaiting call back
--- NOTE | 2019-02-20 04:40 | NUR ---
NURSE NOTES: Called and spoke with Daughter Violette Mojica at this time. Notified her that her fathers HR is in the 40's. stated she will be coming soon
--- NOTE | 2019-02-20 05:00 | NUR ---
NURSE NOTES: Daughter Dasha Mojica call back for updates on her father. Notified her that his HR is dropping and in the 40's at this time.
[2019-02-20 05:29] LABS: HEMATOCRIT 28.1 % (42.0-52.0); HEMOGLOBIN 8.8 G/DL (14.2-18.0); MEAN CORPUSCULAR VOLUME 86 FL (80-99); PLATELET COUNT 318 K/UL (150-450); RED BLOOD COUNT 3.25 M/UL (4.70-6.10); RED CELL DISTRIBUTION WIDTH 15.5 % (11.6-14.8)
--- NOTE | 2019-02-20 05:46 | NUR ---
NURSE NOTES: No pulses even with doppler. No BP. HR 36. Informed Nsg supv. Called Dr Guzman again and waiting for call back.
--- NOTE | 2019-02-20 05:57 | NUR ---
NURSE NOTES: Pt has no heart beat, asystole on all leads. Called ERMD to pronounce. Family en route.
[2019-02-20 05:58] LABS: WHITE BLOOD COUNT 22.4 K/UL (4.8-10.8)
[2019-02-20 06:03] LABS: ALANINE AMINOTRANSFERASE 212 U/L (12-78); ALBUMIN 2.5 G/DL (3.4-5.0); ALBUMIN/GLOBULIN RATIO 0.6 (1.0-2.7); ALKALINE PHOSPHATASE 148 U/L (46-116); ANION GAP 16 mmol/L (5-15); ASPARTATE AMINO TRANSFERASE 322 U/L (15-37); BILIRUBIN,TOTAL 0.5 MG/DL (0.2-1.0); BLOOD UREA NITROGEN 55 mg/dL (7-18); CALCIUM 8.6 MG/DL (8.5-10.1); CARBON DIOXIDE 17 MMOL/L (21-32); CHLORIDE 111 MMOL/L (98-107); CREATININE 3.2 MG/DL (0.55-1.30); PHOSPHORUS 4.7 MG/DL (2.5-4.9); POTASSIUM 4.8 MMOL/L (3.5-5.1); SODIUM 144 MMOL/L (136-145)
--- NOTE | 2019-02-20 06:15 | NUR ---
NURSE NOTES: Still no answer from Dr Guzman. Called Dr Joe and left message.
[2019-02-20] MEDS ORDERED: Docusate 100mg/10ml Liq GT SCH (06:30)
--- NOTE | 2019-02-20 06:45 | NUR ---
RESPIRATORY NOTE: Patient pronounced at 0645 per Er. Doctor. Family at bedside and aware. Pt off the vent. RN Adarsh chapin.
--- NOTE | 2019-02-20 06:45 | NUR ---
NURSE NOTES: Dr Rosado here to pronounce. David Guillermo signed the release of remains.Awaiting call back from [facility]
--- NOTE | 2019-02-20 06:55 | Emergency Room Report ---
History of Present Illness General Chief Complaint: Fever Source: Patient, Medical Record Present Illness Allergies: Coded Allergies: NO KNOWN DRUG ALLERGIES (Unverified Allergy, Unknown, 05/29/14) Nursing Documentation-[facility] Past Medical History: No History, Except For Hx Cardiac Problems: Yes - CHF ,anemia Hx Hypertension: Yes Hx Asthma: Yes - bronchitis Hx COPD: Yes - pneumonia Hx Diabetes: Yes Hx Cancer: No Hx Gastrointestinal Problems: Yes - G tube Hx Dialysis: No Hx Neurological Problems: Yes - CVA, dysphagia, encephalophaty Hx Cerebrovascular Accident: No Hx Dementia: Yes Hx Seizures: No Hx Head Trauma: Yes Hx Aphasia: Yes Hx Weakness: Yes Hx Neurologic Surgery: No Hx Brain Shunt: No Physical Exam Vital Signs Date Time Temp Pulse Resp B/P (MAP) Pulse Ox O2 Delivery O2 Flow Rate FiO2 02/16/19 08:00 78 02/16/19 08:00 97.6 20 152/82 (105) 94 02/16/19 09:00 Room Air 02/17/19 20:03 4.0 36 Procedures CPR/Code Blue CPR/Code Blue Narrative I was called upstairs upon arrival to my shift Patient appears to have and is DNR status Upon arrival to the floor the patient appears somewhat mottled Patient was on a respirator and the ventilator was requested to be turned off by myself Patient's pupils are fixed at approximately 4 mm nonreactive there is 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 also shows asystole no palpable pulses are determined And patient was pronounced at 6:45 in the morning upon my evaluation I discussed with the family at bedside as well Medical Decision Making Diagnostic Impression: Primary Impression: Fever Additional Impressions: Cardiac arrest Fecal impaction Sepsis UTI (urinary tract infection) Last Vital Signs Date Time Temp Pulse Resp B/P (MAP) Pulse Ox O2 Delivery O2 Flow Rate FiO2 02/20/19 06:00 0 18 02/20/19 05:23 80 02/20/19 05:09 83 02/20/19 04:00 Mechanical Ventilator 02/20/19 04:00 95.0 02/19/19 20:32 4.0 Disposition: ADMITTED INPATIENT Condition: Critical Referrals: Remberto Joe DO (PCP) Pool Dominique DO Feb 20, 2019 06:55
--- NOTE | 2019-02-20 07:09 | NUR ---
NURSE NOTES: Received patient from TERESSA Altamirano. Patient pronounced at 0645. Post mortem care done at this time with TERESSA Altamirano. [facility]orsed [place] [facility] Will follow up.
--- NOTE | 2019-02-20 07:10 | NUR ---
NURSE NOTES: [facility] returned phone call. Spoke with Noemi Hyde. [facility] reported that they will not move forward and instructed that the body can be released.
[2019-02-20] MEDS ORDERED: NS Irrig 1000ml ONE (08:09)
[2019-02-20] MEDS ORDERED: Sodium Bicarbonate 50ml Carp ONE (08:09)
[2019-02-20] MEDS ORDERED: NS 275ml ONE ×3 (08:09)
[2019-02-20] MEDS ORDERED: Tubing IV Secondary IV ONE (08:09)
[2019-02-20] MEDS ORDERED: Heparin 5000 units/ml inj SUBQ SCH (09:00)
[2019-02-20] MEDS ORDERED: Gabapentin 300 MG/6 ML Soln GT SCH (09:00)
[2019-02-20] MEDS ORDERED: Levemir Flexpen SUBQ SCH (09:00)
[2019-02-20] MEDS ORDERED: Cefepime HCl 2 GM in D5W 55 ML IVPB SCH (09:00)
[2019-02-20] MEDS ORDERED: Aspirin Baby 81mg GT SCH (09:00)
[2019-02-20] MEDS ORDERED: Lactulose 20gm/30ml UDC ORAL SCH (09:00)
[2019-02-20] MEDS ORDERED: Dyna-Hex 2% Top Sol 2oz TOPIC SCH (20:00)
[2019-02-20] MEDS ORDERED: Norepinephrine Bitartrate 16 MG in D5W 500ml 484 ML IV SCH (20:15)
--- NOTE | 2019-02-20 23:59 | Discharge Summary ---
Discharge Summary Discharge Summary _ DATE OF ADMISSION: 02/15/2019 DATE OF DISCHARGE: 02/20/2019 BRIEF SUMMARY: Patient is an unfortunate 83-year-old male from [facility], who presented to ED due to mental status. He has medical history significant for hypertension, CVA, asthma, diabetes mellitus, and dementia. He was sent from SNF for generalized abdominal pain, fever of 101, and chills. Symptoms were constant and started a day prior to arrival. On evaluation at the ED, vital signs were stable. Blood work showed WBC elevated to 13.6. Hemoglobin 11.7 and hematocrit 36. BUN was 61 and creatinine was 1.7. Troponin was negative. Urinalysis showed negative nitrite and leukocyte esterase, 5-10 RBC, 0-2 WBC. Chest x-ray showed no acute disease. CT of the abdomen and pelvis massive fecal impaction with massive stool burden and colonic distention. He was given enema. He underwent manual fecal disimpaction. He was started empirically on IV antibiotics. Patient was admitted to telemetry. GI was consulted. Holliday catheter at the G- tube site was replaced. He was ordered bowel regimen. Recommended to hold work -up for pancreatic cyst given poor prognosis. ID was consulted. He was given cefepime and Flagyl. He was placed on n.p.o. and was given IV hydration. Patient failed swallow evaluation. He was eventually started on G-tube feeding. Blood culture showed growth of gram-positive clusters and chains. Repeat blood culture was obtained. He was resumed on vancomycin. Flagyl was discontinued. He was continued on cefepime. Patient sound congested, likely upper secretions. Flu swab was negative. Patient was desaturating. He was transferred to [facility]. He was given breathing treatment. He was placed on strict aspiration precautions. Chest x-ray showed mild right basilar atelectasis. He needed frequent suctioning. Blood culture 4 out of 4 showed staph warneri. Patient has no pacemaker or foreign body. Unlikely UTI as urinalysis was negative. CRP was elevated to 17. Sputum culture showed growth of gram-negative rods. Repeat blood culture pending. Abdomen was distended. Tube feeding was placed on hold. G-tube was connected to low intermittent suction. Patient was noted to be apneic and pulseless. CODE BLUE was called. Patient was intubated. Achieved ROSC with sinus rhythm. He was then transferred to ICU. Right internal jugular line was placed. Chest x-ray showed appropriate placement of chest tube and central line without pneumothorax. CODE STATUS changed to DNR per family request. Patient eventually . FINAL DIAGNOSES: Cardiorespiratory arrest Acute respiratory failure Fecal impaction Bacteremia/sepsis Possible pneumonia Acute on chronic renal failure Acute tubular necrosis Diabetes mellitus Old CVA Feeding via G-tube Dementia DISPOSITION: Patient . I have been assigned to complete a discharge summary on this account, I was not involved with the patient's management.--KAILASH Blunt Jacqueline Robles NP Feb 20, 2019 23:59
--- NOTE | 2019-02-23 12:00 | NUR ---
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 101.4 HR 88 RR 22 B/P 119/64 WBC 13.6 BUN 61 CR 1.7 MG 2.9 AST 68 BNP 1099 CXR= NO ACUTE PROCESS ABD/PEL CT= MASSIVE FECAL IMPACTION IS; IV BOLUS NS X 1 LITER VANCO IV CEFEPIME IV FLAGYL PO REGLAN IV ADMITTED TO TELE TELE STATUS DCP RETURN TO [facility] 02/17/19 SI: SEPSIS,VOMITING,AMS, WEAKNESS T.98.2 HR 84 RR 18 B/P 133/75 WBC 9.2 IS: CEFEPIME IV VANCO IV IVF D5NS @ 40ML/HR IRON IV REGLAN IV TELE STATUS 02/18/19 SI: SEPSIS, AMS,VOMITING, WEAKNESS T. 98.2 HR 83 RR 16 B/P 157/83 2L NC BUN 49 CR 2.0 WBC 11.7 IS: IVF D5NS @ 40ML/HR VANCO IV CEFEPIME IV REGLAN IV IRON IV MED/SURG STATUS 02/19/19 SI; SEPSIS, RESP FAILURE ETT/VENT SUPPORT T. 97.3 HR 79 RR 16 B/P 54/38 AC 18 TV 600 FIO2 1005 PEEP 5 PH 7.19 PCO2 38.8 PO2 116.7 HCO2 14.6 O2 SAT 97.8 BUN 46 CR 2.3 WBC 15.7 IS: IVF NS @ 100ML/HR CEFEPIME IV VANCO IV ICU STATUS
== END 2019-02-20 08:10 | disposition expired | DRG 720 ==
LOC: EDBD 14:24 → EMR 15:03 → 2W 15:15 → EDBEDREQ 17:31 → 2W 23:16 → 2E 02-17 06:13 → 4E 02-18 23:04 → ICU 02-19 19:50
PROC: 05HM33Z Insertion of Infusion Device into Right Internal Jugular Vein, Percutaneous Approach (ICD-10-PCS; principal; 2019-02-19)
PROC: 0BH17EZ Insertion of Endotracheal Airway into Trachea, Via Natural or Artificial Opening (ICD-10-PCS; 2019-02-19)
PROC: 5A12012 Performance of Cardiac Output, Single, Manual (ICD-10-PCS; 2019-02-19)
PROC: 5A12012 Performance of Cardiac Output, Single, Manual (ICD-10-PCS; 2019-02-20)
PROC: 5A1935Z Respiratory Ventilation, Less than 24 Consecutive Hours (ICD-10-PCS; 2019-02-20)
DX: A41.9 Sepsis, unspecified organism (principal); K56.41 Fecal impaction; N18.9 Chronic kidney disease, unspecified; E46 Unspecified protein-calorie malnutrition; I13.0 Hypertensive heart and chronic kidney disease with heart failure and stage 1 through stage 4 chronic kidney disease, or unspecified chronic kidney disease; I50.9 Heart failure, unspecified; F03.90 Unspecified dementia, unspecified severity, without behavioral disturbance, psychotic disturbance, mood disturbance, and anxiety; J96.00 Acute respiratory failure, unspecified whether with hypoxia or hypercapnia; J18.9 Pneumonia, unspecified organism; N17.0 Acute kidney failure with tubular necrosis; K57.90 Diverticulosis of intestine, part unspecified, without perforation or abscess without bleeding; Z79.82 Long term (current) use of aspirin; Z79.4 Long term (current) use of insulin; K86.2 Cyst of pancreas; N39.0 Urinary tract infection, site not specified; E11.22 Type 2 diabetes mellitus with diabetic chronic kidney disease; Z86.73 Personal history of transient ischemic attack (TIA), and cerebral infarction without residual deficits; R10.9 Unspecified abdominal pain; D64.9 Anemia, unspecified; R11.10 Vomiting, unspecified; Z43.1 Encounter for attention to gastrostomy; R47.1 Dysarthria and anarthria; J45.909 Unspecified asthma, uncomplicated; Z66 Do not resuscitate
CPT/HCPCS: 36415; 36600; 71045; 74018; 74176; 80048; 80053; 80061; 80076; 80202; 81003; 82140; 82270; 82550; 82553; 82607; 82728; 82746; 82803; 82962; 82977; 83036; 83540; 83550; 83605; 83690; 83735; 83880; 84100; 84443; 84484; 84550; 85007; 85025; 85610; 85730; 86140; 86710; 87040; 87070; 87081; 87086; 87181; 87205; 93005; 94002; 94003; 94664; 96365; 96366; 96367; 96368; 96375; 99285; C9399; J0171; J1815; J2765; J7030; S5561